=== PATIENT | male | born 1960 | race Caucasian/White ===

== ENCOUNTER 2017-04-18 10:02 | Inpatient (IN) ==
[2017-04-18] MEDS ORDERED: PIPERACILLIN SODIUM/TAZOBACTAM 3.375 GM in DEXTROSE 5% IN WATER 50 ML IV ONE (10:50)
[2017-04-18 10:57] LABS: Mean Cell Volume 86.9 fL (80.0-100.0); Mean Corpuscular HGB Conc 33.4 g/dL (31.0-36.0); Platelet Count 220 K/mcL (140-440); RBC 3.06 M/mcL (4.50-5.90); Red Cell Distribution Width 15.1 % (11.5-14.5)
[2017-04-18] MEDS ORDERED: ONDANSETRON 4 MG/2 ML VIAL IV ONE (11:08)
[2017-04-18 11:14] LABS: ALT/SGPT 50 U/l (0-40); Albumin 3.2 gm/dL (3.2-5.2); Albumin/Globulin Ratio 0.8 (1.0-2.3); Alkaline Phosphatase 91 U/L (39-117); Blood Urea Nitrogen 60 mg/dl (6-20)
[2017-04-18] MEDS ORDERED: HYDROmorphone 2 MG/ML SYRINGE IV SCH (11:15)
[2017-04-18 11:29] LABS: Anisocytosis 1+ (NONE SEEN); Band Neutrophils % 12 % (0-10); Lymphocytes % 5 % (15-49); Monocytes % (Manual) 6 % (1-12); Platelet Estimate NORMAL (NORMAL); RBC Morphology ABNORM (NORMAL); Segmented Neutrophils % 77 % (38-78)
[2017-04-18] MEDS ORDERED: VANCOMYCIN PER PHARMACY IV ONE (11:30)
[2017-04-18] MEDS ORDERED: VANCOMYCIN 1,500 MG in 0.9 % SODIUM CHLORIDE 500 ML IV ONE (12:00)
--- NOTE | 2017-04-18 12:59 | Emergency Department Note ---
General Adult HPI - General Chief complaint: Wound/Laceration Stated complaint: Right foot wound and redness Time Seen by Provider: 04/18/17 10:38 Source: patient Mode of arrival: ambulatory Limitations: no limitations - History of Present Illness HPI Narrative: 79-year-old male presents with fever, chills, redness and swelling to the right foot. Has had a partial amputation. States he had surgery on it about a month ago. Is unclear where he had the surgery done. He has been seen wound care. States Dr. lechuga put a couple stitches in it a few days ago. States the last 48 hours he is noticed it is red and more swollen and much more painful than usual. Much worse today and he did not want to wait so he came in here. He has been having chills at home but did not take his temperature at home, is febrile with a temp of 102 on arrival. No nausea, vomiting, or diarrhea. States he just not has not been feeling well in general the last week but cannot describe it. No chest pain or shortness of breath. States the only symptom that he can really pinpoint is that he does get dizzy at times. No dizziness currently. He believes this is all related to his foot. States he had an appointment to get a wound VAC on it later this afternoon but did not feel like he should wait as it was getting worse. Dr. khai ward is aware the patient is here and we are to call him when needed. Patient denies being on any antibiotic therapy currently. Associated symptoms: Reports: diaphoresis, fever/chills, malaise. Denies: confusion, chest pain, cough, headaches, loss of appetite, nausea/vomiting, shortness of breath, syncope, weakness Treatments Prior to Arrival: none - Related Data Home Medications Medication Instructions Recorded Confirmed glipizide 10 mg tablet 10 mg PO BID tab 02/11/15 04/18/17 rivaroxaban 15 mg tablet 15 mg PO .QD 21 Days 03/27/15 04/18/17 insulin detemir 100 unit/mL (3 mL) 80 unit SUB-Q BID ml 01/15/16 04/18/17 subcutaneous pen levothyroxine 150 mcg capsule 300 mcg PO ONCE 05/27/16 04/18/17 blood sugar diagnostic strips See Dose Instructions .ROUTE 01/02/17 04/07/17 .MEDSUPPLY insulin aspart 100 unit/mL 15 unit SUB-Q TID ml 01/02/17 04/18/17 subcutaneous pen lancets 28 gauge See Dose Instructions .ROUTE 01/02/17 04/07/17 .MEDSUPPLY pen needle, diabetic 31 gauge x See Dose Instructions .ROUTE 01/02/17 04/07/1711/03" .MEDSUPPLY ergocalciferol (vitamin D2) 50,000 50,000 unit PO QWEEK cap 03/24/17 04/18/17 unit capsule hydralazine 25 mg tablet 25 mg PO BIDP PRN tab 03/24/17 04/18/17 Allopurinol [Zyloprim] 200 mg PO QDAY 04/18/17 04/18/17 Previous Rx's Medication Instructions Recorded amlodipine 10 mg tablet 10 mg PO QDAY #90 tab 05/27/16 calcium acetate 667 mg capsule 667 mg PO TID 90 Days 05/27/16 losartan 100 mg tablet 100 mg PO QDAY #90 tab 05/27/16 torsemide 20 mg tablet 40 mg PO BID 90 Days 05/27/16 atorvastatin 40 mg tablet 40 mg PO QDAY 90 Days 02/23/17 prednisone 10 mg tablet 10 mg PO QDAY #30 tab 03/24/17 metolazone 2.5 mg tablet 2.5 mg PO QOD PRN #20 tab NS 04/10/17 Allergies Allergy/AdvReac Type Severity Reaction Status Date / Time Beta-Blockers AdvReac Hypotension Verified 04/18/17 10:06 (Beta-Adrenergic Bloc Review of Systems All systems ED: reviewed and negative except as stated. 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) Cough (Chronic) Vision problems (Chronic) Hand pain (Chronic) Thoracic back pain (Chronic) Spinal stenosis of thoracic region (Chronic) Cervical radiculopathy (Chronic) Spinal stenosis in cervical region (Chronic) Knee joint pain (Chronic) Elbow joint pain (Chronic) Atrial fibrillation (Chronic) Essential hypertension (Chronic) Anemia (Chronic) Vitamin D deficiency (Chronic) Diabetic foot ulcer (Chronic) 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) Diabetes mellitus (Chronic) Hypothyroidism (Chronic) Musculoskeletal pain (Chronic) Chronic kidney disease, stage IV (severe) (Chronic) Elevated erythrocyte sedimentation rate (Chronic) Hyperparathyroidism due to renal insufficiency (Chronic) Proteinuria (Chronic) Secondary hyperparathyroidism of renal origin (Chronic) Chronic kidney disease, stage IV (severe) (Chronic) Hyperuricemia (Chronic) Ulcer of foot (Acute) Secondary hyperparathyroidism (Chronic 09/15/13) Acidosis, renal tubular (Acute 08/21/13) Lumbar sprain (Acute) Hyperthyroidism (Acute) Hypertensive renal disease (Chronic 08/21/13) Hypertension (Acute) Creatinine elevation (Acute) Edema (Chronic 09/15/13) Type 2 diabetes mellitus, uncontrolled (Acute 08/21/13) Type 2 diabetes mellitus (Chronic) Stage III chronic kidney disease (Chronic 09/15/13) Atrial flutter (Acute) Past Surgical History (Last Reviewed 03/24/17 @ 08:53 by Latisha De León RN) History of discectomy (Acute) History of arthroscopy of left shoulder (Chronic 04/16/15) History of lumbar discectomy (Chronic ~1986) Medical history: Reports: other (Amputation to the right foot. He also sees wound care for wound and wound infection to the right foot. ) - Social History smoking status: Never smoker Alcohol use: Reports: None Drug use: Reports: none Physical Exam - General Limitations: no limitations General appearance: alert, in no apparent distress - Head Head exam: atraumatic, normocephalic, normal inspection - Eye Eye exam: Present: normal appearance. Absent: conjunctival injection - ENT ENT exam: normal exam, normal oropharynx, mucous membranes moist, TM's normal bilaterally, normal external ear exam - Chest Chest inspection: Present: normal inspection, symmetric chest wall rise - Respiratory Respiratory exam: Present: normal lung sounds bilaterally, other (Mild tachypnea with a rate of 24 on exam. Lung sounds are clear throughout.). Absent: respiratory distress, wheezes, accessory muscle use - Cardiovascular Cardiovascular exam: Present: regular rate, normal heart sounds - Abdominal Exam Abdominal exam: Present: soft, normal bowel sounds, other (Obesity). Absent: distention, tenderness - Extremities Exam Extremities exam: Present: other (The right foot has been previously partially amputated. The distal tip of this, 10 cm is red and warm to touch. There is some purulent drainage. Culture was obtained, sent, and is pending. Is also very tender to touch. Sensation is intact. Cap refill is immediate. There is sutures that are intact. It is not gaping.) - Neurological Exam Neurological exam: Present: alert, oriented X3. Absent: motor sensory deficit - Psychiatric Psychiatric exam: Present: normal affect, normal mood - Skin Skin exam: Present: warm, dry. Absent: erythema (Please see extremity assessment) Course Course Narrative: Patient does have an elevated white blood cell count as well as mildly elevated lactic acid. Please see lab results. Dr. khai ward consulted and is here to see patient. Dr. khai ward agrees to assume care and will consult with hospitalist Dr. Morrell. Vital Signs Temperature 102.1 F H 04/18/17 10:03 Pulse Rate 89 04/18/17 10:03 Respiratory Rate 18 04/18/17 10:03 Blood Pressure 158/79 04/18/17 10:03 Pulse Oximetry (%) 100 04/18/17 10:03 Temperature 102.1 F H 04/18/17 12:55 Pulse Rate 82 04/18/17 12:47 Respiratory Rate 21 04/18/17 12:47 Blood Pressure 135/55 04/18/17 12:47 Pulse Oximetry (%) 91 04/18/17 12:47 Medical Decision Making - Lab Data Result diagrams: 04/18/17 10:19 04/18/17 10:19 Lab Results 04/18/17 04/18/17 04/18/17 Range/Units 10:19 10:19 10:19 WBC 12.9 H (4.5-11.0) K/mcL RBC 3.06 L (4.50-5.90) M/mcL Hgb 8.9 L (13.5-16.5) g/dL Hct 26.6 L (41.0-55.0) % MCV 86.9 (80.0-100.0) fL MCH 29.0 (26.0-34.0) pg MCHC 33.4 (31.0-36.0) g/dL RDW 15.1 H (11.5-14.5) % Plt Count 220 (140-440) K/mcL MPV 8.7 (7.4-10.4) fL Total Counted 100 Seg Neutrophils % 77 (38-78) % Band Neutrophils % 12 H (0-10) % Lymphocytes % 5 L (15-49) % Monocytes % (Manual) 6 (1-12) % Platelet Estimate Normal (NORMAL) RBC Morphology Abnorm A (NORMAL) Anisocytosis 1+ A (NONE SEEN) VBG Lactic Acid 2.3 H (0.5-2.2) mmol/L Sodium 129 L (133-145) mmol/L Potassium 4.0 (3.3-5.1) mmol/L Chloride 87 L (96-108) mmol/L Carbon Dioxide 22 (22-30) mmol/L Anion Gap 20.0 H (8-16) BUN 60 H (6-20) mg/dl Creatinine 4.0 H (0.7-1.2) mg/dl GFR Calculation 15 Glucose 277 H (70-105) mg/dL Calcium 8.5 L (8.6-10.4) mg/dl Total Bilirubin 0.3 (0.0-1.0) mg/dL AST 58 H (0-37) U/l ALT 50 H (0-40) U/l Alkaline Phosphatase 91 (39-117) U/L Total Protein 7.0 (5.9-8.4) gm/dL Albumin 3.2 (3.2-5.2) gm/dL Globulin 3.8 H (2.2-3.7) gm/dL Albumin/Globulin Ratio 0.8 L (1.0-2.3) Disposition Pt seen by [facility] only: Yes Clinical Impression: Foot infection Disposition: Xfer As Inpt ([facility]) Condition: Fair Referrals: Mariama Bedolla DO [Primary Care Provider] - Dickson Cameron MD [Physician] -
[2017-04-18] MEDS ORDERED: ACETAMINOPHEN 325 MG TABLET PO ONE ×2 (13:15→13:23)
--- NOTE | 2017-04-18 13:43 | Internal Med History&Physical ---
Medical - H&P: [facility] Patient information: Note initiated : 04/18/17 at 1:39 pm Service Date, if different from initiated Date: [] Patient: Bart Pagan a 57 y/o M admitted on for Right foot wound and redness. Chief Complaint: [] Chief complaint: Right foot mputation stump pain fever History of present illness: Mr. Pagan is a 57 year old M who underwentright foot metatarsal amputation on March 07. Patient has been recovering well and has been following up with wound care. On Monday patient saw on care physician and underwent treatment along with 2 stitches. Over the weekend patient has noted increasing swelling and pain discharge. By Monday patient started experiencing shaking chills and drenching sweats long with excessive exhaustion. Today at work patient was unable to bear weight due to increasing pain and swelling along with associated fever. He notices bandage soaked in bloody discharge. he is afebrile 102. e was subsequently directed by Dr. Cameron's officeto ER. initial workup was significant for elevated white count along with fever and sepsis. ospitalist service was consulted after case was discussed with Dr. Maresor admission initiation of antibiotics and likely initiation of hyperbaric treatments. at the time of examination patient is alert oriented. He denies any active distress except for amputation stump pain and swelling. he endorses to fevers. Denies diarrhea dysuria headache photophobia skin rash or joint pain or weight loss. 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) Cough (Chronic) Vision problems (Chronic) Hand pain (Chronic) Thoracic back pain (Chronic) Spinal stenosis of thoracic region (Chronic) Cervical radiculopathy (Chronic) Spinal stenosis in cervical region (Chronic) Knee joint pain (Chronic) Elbow joint pain (Chronic) Atrial fibrillation (Chronic) Essential hypertension (Chronic) Anemia (Chronic) Vitamin D deficiency (Chronic) Diabetic foot ulcer (Chronic) 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) Diabetes mellitus (Chronic) Hypothyroidism (Chronic) Musculoskeletal pain (Chronic) Chronic kidney disease, stage IV (severe) (Chronic) Elevated erythrocyte sedimentation rate (Chronic) Hyperparathyroidism due to renal insufficiency (Chronic) Proteinuria (Chronic) Secondary hyperparathyroidism of renal origin (Chronic) Chronic kidney disease, stage IV (severe) (Chronic) Hyperuricemia (Chronic) Ulcer of foot (Acute) Secondary hyperparathyroidism (Chronic 09/15/13) Acidosis, renal tubular (Acute 08/21/13) Lumbar sprain (Acute) Hyperthyroidism (Acute) Hypertensive renal disease (Chronic 08/21/13) Hypertension (Acute) Creatinine elevation (Acute) Edema (Chronic 09/15/13) Type 2 diabetes mellitus, uncontrolled (Acute 08/21/13) Type 2 diabetes mellitus (Chronic) Stage III chronic kidney disease (Chronic 09/15/13) Atrial flutter (Acute) Surgical history: History of discectomy (Acute) History of arthroscopy of left shoulder (Chronic 04/16/15) History of lumbar discectomy (Chronic ~1986) Family history: reviewed and not pertinent Pertinent family history: dopted 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 Has a cousin Jeffrey who lives locally Smoking status: Former smoker (uit in 2004) Drug use: none Alcohol use: none Medical - H&P: Meds Home Medications Medication Instructions Recorded Confirmed Type glipizide 10 mg tablet 10 mg PO BID tab 02/11/15 04/18/17 History rivaroxaban 15 mg tablet 15 mg PO .QD 21 Days 03/27/15 04/18/17 History insulin detemir 100 unit/mL (3 mL) 80 unit SUB-Q BID ml 01/15/16 04/18/17 History subcutaneous pen amlodipine 10 mg tablet 10 mg PO QDAY #90 tab 05/27/16 04/18/17 Rx calcium acetate 667 mg capsule 667 mg PO TID 90 Days 05/27/16 04/18/17 Rx levothyroxine 150 mcg capsule 300 mcg PO ONCE 05/27/16 04/18/17 History losartan 100 mg tablet 100 mg PO QDAY #90 tab 05/27/16 04/18/17 Rx torsemide 20 mg tablet 40 mg PO BID 90 Days 05/27/16 04/18/17 Rx blood sugar diagnostic strips See Dose Instructions .ROUTE 01/02/17 04/07/17 History .MEDSUPPLY insulin aspart 100 unit/mL 15 unit SUB-Q TID ml 01/02/17 04/18/17 History subcutaneous pen lancets 28 gauge See Dose Instructions .ROUTE 01/02/17 04/07/17 History .MEDSUPPLY pen needle, diabetic 31 gauge x See Dose Instructions .ROUTE 01/02/17 04/07/17 History 3" .MEDSUPPLY atorvastatin 40 mg tablet 40 mg PO QDAY 90 Days 02/23/17 04/18/17 Rx ergocalciferol (vitamin D2) 50,000 50,000 unit PO QWEEK cap 03/24/17 04/18/17 History unit capsule hydralazine 25 mg tablet 25 mg PO BIDP PRN tab 03/24/17 04/18/17 History prednisone 10 mg tablet 10 mg PO QDAY #30 tab 03/24/17 04/18/17 Rx metolazone 2.5 mg tablet 2.5 mg PO QOD PRN #20 tab NS 04/10/17 04/18/17 Rx Allopurinol [Zyloprim] 200 mg PO QDAY 04/18/17 04/18/17 History Allergies Allergy/AdvReac Type Severity Reaction Status Date / Time Beta-Blockers AdvReac Hypotension Verified 04/18/17 10:06 (Beta-Adrenergic Bloc Medical - H&P: Exam - Constitutional Vitals: Temp Pulse Resp BP Pulse Ox 102.2 F H 82 22 134/59 91 04/18/17 13:21 04/18/17 12:47 04/18/17 13:02 04/18/17 13:02 04/18/17 12:47 General appearance: moderate distress, morbidly obese Exam: alert oriented pupils symmetric Oral cavity dry no eardischarge head normocephalic Nose lymphadenopathy or JVD s1 and S2 regular rhythm ESM grade 1 chest clear to auscultation abdomen soft right lower extremity examination-amputation stump significantly swollen and oozing purulent discharge from the lateral surface. klarissa to touch Left lower extremity examination no cyanosis clubbing skin no suspicious lesion Psych alert cooperative neuro normal functions on a limited due to exam Medical - H&P: Reslt - Labs CBC & Chem 7: 04/18/17 10:19 04/18/17 10:19 Labs: Short CBC 04/18/17 Range/Units 10:19 WBC 12.9 H (4.5-11.0) K/mcL Hgb 8.9 L (13.5-16.5) g/dL Hct 26.6 L (41.0-55.0) % Plt Count 220 (140-440) K/mcL BMP 04/18/17 10:19 Sodium 129 L Potassium 4.0 Chloride 87 L Carbon Dioxide 22 BUN 60 H Creatinine 4.0 H Glucose 277 H Calcium 8.5 L Liver Function 04/18/17 Range/Units 10:19 Total Bilirubin 0.3 (0.0-1.0) mg/dL AST 58 H (0-37) U/l ALT 50 H (0-40) U/l Alkaline Phosphatase 91 (39-117) U/L Albumin 3.2 (3.2-5.2) gm/dL Medical - H&P: A/P (1) Severe sepsis Current visit: Yes Status: Acute (2) Necrotizing cellulitis Current visit: Yes Status: Acute * Necrotizing cellulitis right foot amputation site-nitiate broad antibiotic coverage. Wound care consulted. await wound cultures. dmitted as inpatient * Severe sepsis secondary to above-broad antibiotic coverage. Admitted to telemetry for close hemodynamic monitoring. white count 8.9 * Stage IV kidney disease-nephrology consulted. Creatinine 4. Baseline 3 * anticoagulation on rivaroxaban. * History of gout continue allopurinol * hypertension hold amlodipine/valsartan in light of severe sepsis until hemodynamics stable * dM type II continue prandial insulin * hypothyroidism thyroxine * Full CODE STATUS Plan * Broad antibiotic coverage including Rocephin/vancomycin and clindamycin(for toxin suppression) * wound care consult * nephrology consult * telemetry admitted * pre-existing medical condition management as above except antihypertensives which will be held until sepsis clinically improves * Anticipate minimumOvernight stay
[2017-04-18] MEDS ORDERED: guaiFENesin/CODEINE 10 ML UDC PO PRN (14:15)
[2017-04-18] MEDS ORDERED: DEXTROSE 50% 50 ML VIAL IV PRN (14:15)
[2017-04-18] MEDS ORDERED: VANCOMYCIN PER PHARMACY IV SCH (14:15)
[2017-04-18] MEDS ORDERED: DEXTROSE 31 GM ORAL.SUSP PO PRN (14:15)
[2017-04-18] MEDS ORDERED: 0.9 % SODIUM CHLORIDE 1,000 ML IV SCH (14:15)
[2017-04-18] MEDS ORDERED: ONDANSETRON 4 MG/2 ML VIAL IV PRN (14:15)
[2017-04-18] MEDS ORDERED: hydrALAZINE 25 MG TABLET PO PRN (14:15)
[2017-04-18] MEDS ORDERED: POTASSIUM CHLORIDE 20 MEQ PACKET PO PRN (14:15)
[2017-04-18] MEDS ORDERED: MAGNESIUM SULFATE 2 GM/50 ML BAG IV PRN (14:15)
[2017-04-18] MEDS ORDERED: CLINDAMYCIN 600 MG in DEXTROSE 5% IN WATER 50 ML IV SCH (14:30)
[2017-04-18] MEDS ORDERED: cefTRIAXone 2 GM in DEXTROSE 5% IN WATER 50 ML IV SCH (15:00)
[2017-04-18] MEDS: GENTAMICIN SULFATE 40 MG, CLINDAMYCIN 300 MG, BACITRACIN 25,000 UNIT in SODIUM CHLORIDE... IRR SCH ×2 (16:00→20:44)
[2017-04-18] MEDS: 0.9 % SODIUM CHLORIDE 10 ML SYRINGE IV SCH ×2 (16:31→23:11)
[2017-04-18] MEDS: INSULIN LISPRO 1 UNIT/0.01 ML UNIT SQ SCH ×2 (16:38→20:55)
[2017-04-18] MEDS: ACETAMINOPHEN 1,000 MG/100 ML BOTTLE IV PRN (16:47)
[2017-04-18] MEDS ORDERED: LORazepam 1 MG TABLET PO PRN (18:36)
--- NOTE | 2017-04-18 18:52 | General Surgery Consult Note ---
History of Present Illness Patient information: Note initiated : 04/18/17 at 6:41 pm Service Date, if different from initiated Date: [] Patient: Bart Pagan 57 y/o M admitted on 04/18/17 for Debridement of Wound Right Foot. Chief Complaint: [] Consult date: 04/18/17 (Wound Care / Management) Reason for consult: other Requesting physician: Johnny Schreiber (Post surgery SIRS Sepsis) History of present illness: Patient was admitted from ER with sepsis, CSSSI earlier this morning. He is status post transmetatarsal amputation of right for over one month ago. Was being followed in wound care issues and for delayed wound healing. He was last seen in wound center over four days ago. Subsequently developed constitutional symptoms and inability to bear weight on right foot. Developed chills and started to notice drainage from wound at the lateral flap edge approximated earlier at wound clinic. He was instructed to go to ER for evaluation and admission for further management. Patient denies any acute cardiac, respiratory, GI pr neurological symptoms. He has CRF and is under care of linen room supervisor Dr. Garcia. Lab work in ER revealed leukocytosis, anemia, creatinine of 4, marginal elevation of lactic acid and other lab abnormalities. Wound evaluation revealed erythematous flap edges and drainage of serous purulent drainage. Medications and Allergies Home Medications Medication Instructions Recorded Confirmed Type glipizide 10 mg tablet 10 mg PO BID tab 02/11/15 04/18/17 History rivaroxaban 15 mg tablet 15 mg PO DAILY 21 Days 03/27/15 04/18/17 History insulin detemir 100 unit/mL (3 mL) 80 unit SUB-Q BID ml 01/15/16 04/18/17 History subcutaneous pen amlodipine 10 mg tablet 10 mg PO QDAY #90 tab 05/27/16 04/18/17 Rx calcium acetate 667 mg capsule 667 mg PO TID 90 Days 05/27/16 04/18/17 Rx levothyroxine 150 mcg capsule 300 mcg PO ACB 05/27/16 04/18/17 History losartan 100 mg tablet 100 mg PO QDAY #90 tab 05/27/16 04/18/17 Rx torsemide 20 mg tablet 40 mg PO BID 90 Days 05/27/16 04/18/17 Rx insulin aspart 100 unit/mL 15 unit SUB-Q QPMAC ml 01/02/17 04/18/17 History subcutaneous pen atorvastatin 40 mg tablet 40 mg PO QDAY 90 Days 02/23/17 04/18/17 Rx ergocalciferol (vitamin D2) 50,000 50,000 unit PO QWEEK cap 03/24/17 04/18/17 History unit capsule hydralazine 25 mg tablet 25 mg PO BID tab 03/24/17 04/18/17 History prednisone 10 mg tablet 10 mg PO QDAY #30 tab 03/24/17 04/18/17 Rx metolazone 2.5 mg tablet 2.5 mg PO QOD PRN #20 tab NS 04/10/17 04/18/17 Rx Allopurinol [Zyloprim] 200 mg PO QDAY 04/18/17 04/18/17 History HYDROcodone/ACETAMINOPHEN 1 - 2 tab PO Q6HP PRN 04/18/17 04/18/17 History [Hydrocodon-Acetaminophn 10-325] Allergies Allergy/AdvReac Type Severity Reaction Status Date / Time Beta-Blockers AdvReac Hypotension Verified 04/18/17 10:06 (Beta-Adrenergic Bloc Exam Temp Pulse Resp BP Pulse Ox 101.6 F H 73 20 139/65 95 04/18/17 16:47 04/18/17 13:50 04/18/17 16:28 04/18/17 16:28 04/18/17 16:28 - General physical appearance well developed, well nourished, no distress - Eyes PERRL, normal ocular movement - ENT normal pinna, normal nares, normal mucosa, no hearing loss, no congestion - Head Head exam IM: Present: atraumatic, normal inspection, normocephalic - Neck no masses, no bruits, trachea midline, no venous distension - Cardiovascular Cardiovascular exam IM: Present: normal rate and rhythm - Respiratory normal expansion, clear to auscultation - Abdomen Abdomen: Present: soft, non tender, bowel sounds - Integumentary Present: other (ERYTHEMA right foot with drainage from lateral edge of wound. ) - Neurologic Present: normal coordination, other (Diabetes neuropathy feet. NO FOCAL NEUROLOGICAL DEFICITS. ) - Musculoskeletal Present: other (Right foot trans metatarsal amputaion ) - Psychiatric Present: oriented to time, oriented to person, oriented to place, speech is normal, memory intact, other (Fully aware of current situation and agrees with current plan of treatment. ) Results - Labs 04/19/17 04:34 04/19/17 04:34 All other labs normal. Assessment and Plan (1) Sepsis affecting skin Local wound care, IV antibiotics, For surgical debridement in OR after pre op HBOT for necrotizing skin infection, Status: Acute Priority: High (2) Foot infection X Ray, wound cultures, OR debridement, pulse lavage irrigation with antibiotics saline solution, and / or packing versus wound VAC placement. Status: Acute Priority: High (3) Severe sepsis Pre operative medical management of co morbid medical problems and work up followed by HBOT, OR debridement and on going wound care. Status: Acute Priority: High
[2017-04-18] MEDS ORDERED: PIPERACILLIN SODIUM/TAZOBACTAM 2.25 GM VIAL IV ONE (20:26)
[2017-04-18] MEDS: PIPERACILLIN SODIUM/TAZOBACTAM 2.25 GM in DEXTROSE 5% IN WATER 50 ML IV SCH (20:36)
[2017-04-18] MEDS: DOCUSATE SODIUM 100 MG CAPSULE PO SCH (20:43)
[2017-04-18] MEDS: SENNOSIDES/DOCUSATE SODIUM 1 TAB TABLET PO SCH (20:43)
[2017-04-18] MEDS ORDERED: TORSEMIDE 10 MG TABLET PO SCH (21:00)
[2017-04-18] MEDS: oxyCODONE HCL 5 MG TABLET PO PRN (21:01)
[2017-04-18] MEDS: ACETAMINOPHEN 325 MG TABLET PO PRN (22:58)
[2017-04-19] MEDS ORDERED: PIPERACILLIN SODIUM/TAZOBACTAM 2.25 GM VIAL IV ONE ×2 (00:26→05:29)
[2017-04-19] MEDS: PIPERACILLIN SODIUM/TAZOBACTAM 2.25 GM in DEXTROSE 5% IN WATER 50 ML IV SCH ×4 (00:32→22:06)
[2017-04-19] MEDS: ACETAMINOPHEN 1,000 MG/100 ML BOTTLE IV PRN ×3 (01:15→17:45)
[2017-04-19] MEDS: 0.9 % SODIUM CHLORIDE 10 ML SYRINGE IV SCH ×3 (05:26→22:06)
[2017-04-19 05:59] LABS: Mean Cell Volume 86.6 fL (80.0-100.0); Mean Corpuscular HGB Conc 33.7 g/dL (31.0-36.0); Mean Corpuscular Hemoglobin 29.2 pg (26.0-34.0); Platelet Count 195 K/mcL (140-440); RBC 2.73 M/mcL (4.50-5.90); Red Cell Distribution Width 15.6 % (11.5-14.5)
[2017-04-19 06:18] LABS: Estimated Average Glucose(eAG) 229 mg/dL; Hemoglobin A1C 9.6 % HGB (4.0-6.0)
[2017-04-19 06:20] LABS: ALT/SGPT 39 U/l (0-40); Albumin/Globulin Ratio 1.1 (1.0-2.3); Alkaline Phosphatase 79 U/L (39-117); Bilirubin,Direct < 0.2 mg/dL (0.0-0.3); Blood Urea Nitrogen 62 mg/dl (6-20); Gamma Glutamyl Transpeptidase 75 U/L (8-61); Magnesium 1.7 mg/dL (1.6-2.5); Prealbumin 14.3 mg/dl (20-40)
[2017-04-19 06:51] LABS: Band Neutrophils % 6 % (0-10); Eosinophils % (Manual) 1 % (0-7); Lymphocytes % 8 % (15-49); Monocytes % (Manual) 7 % (1-12); Platelet Estimate NORMAL (NORMAL); RBC Morphology NORMAL (NORMAL); Segmented Neutrophils % 78 % (38-78)
--- NOTE | 2017-04-19 07:36 | XRay Report ---
CLINICAL INFORMATION: Sepsis preop COMPARISON: 02/15/2013 FINDINGS: Since prior films, a transmetatarsal amputation of the performed. There is mild cortical and trabecular irregularity in the first metatarsal base which could indicate infection. Marked overlying soft tissue swelling is noted. No other osseous abnormalities. Residual joint spaces are normal. IMPRESSION: Marked soft tissue swelling over the transmetatarsal amputation stump with irregularity in the first metatarsal base which could indicate osteomyelitis Interpreted and Authenticated by: Nakul Huynh 04/19/17
--- NOTE | 2017-04-19 07:37 | XRay Report ---
CLINICAL INFORMATION: Sepsis - pre-op COMPARISON: None. FINDINGS: Heart size, mediastinum and pulmonary vessels are normal. Lungs are clear. There are equivocal tiny bilateral pleural effusions IMPRESSION: Equivocal tiny bilateral pleural effusions Interpreted and Authenticated by: Nakul Huynh 04/19/17
--- NOTE | 2017-04-19 07:59 | General Surgery Progress Note ---
Subjective Patient reports: fever, other (Spiked fever up to 103 F overnight. Blood c/s GPC pairs and clusters. Necrotic drainage from wound .) Narrative: Note initiated : 04/19/17 at 7:56 am Service Date, if different from initiated Date: [] Patient: Bart Pagan 57 y/o M admitted on 04/18/17 for Debridement of Wound Right Foot. Chief Complaint: [] Objective Temp Pulse Resp BP Pulse Ox 99.9 F H 76 20 148/78 93 04/19/17 05:46 04/19/17 04:00 04/19/17 04:00 04/19/17 04:00 04/19/17 04:00 T mas 103. T now 99 F. NSR. Lungs CTA. O2 sats >90 % on RA. Labs Elevation of creatinine . Leukocytosis, Hyperglycemia Right foot warm. Dressing intact. - Additional Data Intake & Output - Last 24 hours: Intake & Output 04/17/17 04/18/17 04/19/17 04/20/17 05:59 05:59 05:59 05:59 Intake Total 1584 / 1967 Output Total 1050 / 1050 Balance 534 / 917 Weight 237 lb 8 oz - Labs 04/19/17 04:34 04/19/17 04:34 Diabetes panel 04/19/17 Range/Units 04:34 Sodium 132 L (133-145) mmol/L Potassium 4.0 (3.3-5.1) mmol/L Chloride 92 L (96-108) mmol/L Carbon Dioxide 21 L (22-30) mmol/L BUN 62 H (6-20) mg/dl Creatinine 4.5 H (0.7-1.2) mg/dl Glucose 123 H (70-105) mg/dL Hemoglobin A1c 9.6 H (4.0-6.0) % HGB Calcium 8.2 L (8.6-10.4) mg/dl AST 36 (0-37) U/l ALT 39 (0-40) U/l Alkaline Phosphatase 79 (39-117) U/L Total Protein 5.8 L (5.9-8.4) gm/dL Albumin 3.0 L (3.2-5.2) gm/dL Triglycerides 132 (<150) mg/dl Thyroid panel 04/19/17 Range/Units 04:34 TSH 0.18 L (0.27-5.01) uIU/ml Calcium panel 04/19/17 Range/Units 04:34 Calcium 8.2 L (8.6-10.4) mg/dl Phosphorus 4.6 H (2.7-4.5) mg/dL Albumin 3.0 L (3.2-5.2) gm/dL Pituitary panel 04/19/17 Range/Units 04:34 Sodium 132 L (133-145) mmol/L Potassium 4.0 (3.3-5.1) mmol/L Chloride 92 L (96-108) mmol/L Carbon Dioxide 21 L (22-30) mmol/L BUN 62 H (6-20) mg/dl Creatinine 4.5 H (0.7-1.2) mg/dl Glucose 123 H (70-105) mg/dL Calcium 8.2 L (8.6-10.4) mg/dl TSH 0.18 L (0.27-5.01) uIU/ml Adrenal panel 04/19/17 Range/Units 04:34 Sodium 132 L (133-145) mmol/L Potassium 4.0 (3.3-5.1) mmol/L Chloride 92 L (96-108) mmol/L Carbon Dioxide 21 L (22-30) mmol/L BUN 62 H (6-20) mg/dl Creatinine 4.5 H (0.7-1.2) mg/dl Glucose 123 H (70-105) mg/dL Calcium 8.2 L (8.6-10.4) mg/dl Total Bilirubin 0.3 (0.0-1.0) mg/dL AST 36 (0-37) U/l ALT 39 (0-40) U/l Alkaline Phosphatase 79 (39-117) U/L Total Protein 5.8 L (5.9-8.4) gm/dL Albumin 3.0 L (3.2-5.2) gm/dL Assessment and Plan (1) Sepsis affecting skin Problem details: NECROTIZING skin and soft tissue infection. SEPSIS Uncontrolled diabetes, Anemia, CRF PLAN: HBOT Now later OR debridement / lavage and deep tissue biopsies and cultures. Status: Acute Current Visit: Yes (2) Foot infection Status: Acute Current Visit: Yes (3) Severe sepsis Status: Acute Current Visit: Yes - Time Spent With Patient Total time spent is greater than 50% in coordination of care (as documented) at patient's floor/unit and/or counseling patient:
[2017-04-19] MEDS ORDERED: CLINDAMYCIN 600 MG in DEXTROSE 5% IN WATER 50 ML IV SCH (10:00)
[2017-04-19] MEDS ORDERED: GENTAMICIN SULFATE 800 MG/20 ML VIAL IR ONE (11:04)
[2017-04-19] MEDS ORDERED: BACITRACIN 50,000 UNIT VIAL IR ONE (11:04)
[2017-04-19] MEDS ORDERED: CLINDAMYCIN 600 MG/4 ML VIAL IR ONE (11:04)
[2017-04-19] MEDS ORDERED: ACETAMINOPHEN 1,000 MG/100 ML BOTTLE IV ONE (11:05)
[2017-04-19] MEDS ORDERED: ONDANSETRON 4 MG/2 ML VIAL IV ONE (11:05)
[2017-04-19] MEDS ORDERED: LIDOCAINE HCL/PF 100 MG/5 ML SYRINGE IV ONE (11:05)
[2017-04-19] MEDS ORDERED: MIDAZOLAM 5 MG/5 ML VIAL IV ONE (11:05)
[2017-04-19] MEDS ORDERED: ETOMIDATE 20 MG/10 ML VIAL IV ONE (11:05)
[2017-04-19] MEDS ORDERED: GLYCOPYRROLATE 0.2 MG/ML VIAL IV ONE (11:05)
[2017-04-19] MEDS ORDERED: KETAMINE 100 MG/ML ML IV ONE (11:05)
[2017-04-19] MEDS: ALLOPURINOL 100 MG TABLET PO SCH ×2 (11:06→15:13)
[2017-04-19] MEDS: MULTIVIT,THER IRON,CA,FA & MIN 1 TABLET PO SCH ×2 (11:07→15:14)
[2017-04-19] MEDS ORDERED: MEPERIDINE 25 MG/ML SYRINGE IV PRN (11:27)
[2017-04-19] MEDS ORDERED: fentaNYL 100 MCG/2 ML VIAL IV PRN (11:27)
[2017-04-19] MEDS ORDERED: ONDANSETRON 4 MG/2 ML VIAL IV PRN (11:27)
[2017-04-19] MEDS ORDERED: METHOCARBAMOL 1,000 MG/10 ML VIAL IV PRN (11:27)
[2017-04-19] MEDS ORDERED: IPRATROPIUM/ALBUTEROL 3 ML AMPUL.NEB NEB PRN (11:27)
[2017-04-19] MEDS ORDERED: HYDROmorphone 2 MG/ML SYRINGE IV PRN (11:27)
[2017-04-19] MEDS ORDERED: LACTATED RINGERS 1,000 ML IV SCH (11:30)
[2017-04-19] MEDS: INSULIN LISPRO 1 UNIT/0.01 ML UNIT SQ SCH ×3 (11:42→20:27)
[2017-04-19] MEDS: LEVOTHYROXINE 150 MCG TABLET PO SCH (11:43)
[2017-04-19] MEDS: RIVAROXABAN 15 MG TABLET PO SCH (11:44)
[2017-04-19] MEDS: predniSONE 10 MG TABLET PO SCH (11:44)
[2017-04-19] MEDS: DOCUSATE SODIUM 100 MG CAPSULE PO SCH ×2 (11:44→20:26)
[2017-04-19] MEDS: ATORVASTATIN 20 MG TABLET PO SCH (11:58)
--- NOTE | 2017-04-19 12:13 | Brief Operative Note ---
Date of procedure: 04/19/17 Pre-op diagnosis: SEPSIS. Infected Right foot TMA amputation site Lateral Post-op diagnosis: same Procedure: Surgical debridement and deep tissue biopsies and cultures, OPEN packing Final wound dimensions: 5 x 3.5 x 4 CM Grafts/Implants: No Anesthesia: GLMA Findings: Multiloculated pockets of soft tissue skin, fat and abscess debris Complications: none Surgeon: Dickson Cameron Estimated blood loss (cc): 20 Specimens Removed/Pathology: other Condition: stable Disposition: floor (OPeration was well toelrated.)
[2017-04-19] MEDS: 0.9 % SODIUM CHLORIDE 1,000 ML IV SCH ×3 (12:20→23:59)
--- NOTE | 2017-04-19 13:02 | Operative Note ---
DATE OF OPERATION: 04/19/2017 PREOPERATIVE DIAGNOSES: Sepsis, infected right foot status post transmetatarsal amputation over one month ago. POSTOPERATIVE DIAGNOSES: Sepsis, infected right foot status post transmetatarsal amputation over one month ago. Infection along the lateral one-third of the scar extending from the front out to the superior aspect of the foot. PROCEDURE: 1. Excisional surgical debridement. Deep tissue biopsies. Cultures. 2. Pulse lavage irrigation with open packing. FINAL WOUND DIMENSIONS: 5 x 3.5 x 4 cm. ANESTHESIOLOGIST: Unique Welch MD. SURGEON: Dickson Cameron MD. PROCEDURE NOTE: After obtaining informed consent, patient was taken to the operating room, anesthetized uneventfully in supine position using laryngeal mask airway. Timeout was called. The right lower extremity was widely cleaned, prepped and draped in a standard fashion from the knee down to the amputation stump scar. Preoperative photograph was taken. The patient was placed in Trendelenburg position. We first proceeded to explore the wound with a hemostat. The necrotic skin edges were sharply trimmed. Underlying loculations were taken down with blunt finger dissection. This led to a gush of necrotic fat and liquified blood clots. Later the devitalized fat and muscle was excised with pickup and curved scissors. Pulse lavage irrigation was used to irrigate this cavity. Three liters of normal saline solution was mixed with 80 mg of gentamicin, 600 mg of clindamycin, and 50,000 units of bacitracin solution. All the devitalized tissue was washed and flushed away. Towards completion, the wound bed was pink and moist. We placed a large Xeroform gauze over this. This was reinforced with open 2-inch Kerlix roll soaked in Betadine solution. The Xeroform gauze was folded on itself, and this packing was held in place with AMD Kerlix gauze, AMD Kerlix roll, Coban and MOISES wrap. Estimated blood loss was under 20 mL. Count of swabs, instruments and needles was reported to be correct. He recovered from the procedure uneventfully. He was taken back to his room in telemetry division ICU. The procedure was well tolerated. VD:marleni Job ID: [id number] Doc ID: [id number] Dickson Cameron MD
[2017-04-19] MEDS: GENTAMICIN SULFATE 40 MG, CLINDAMYCIN 300 MG, BACITRACIN 25,000 UNIT in SODIUM CHLORIDE... IRR SCH ×2 (14:27→20:27)
--- NOTE | 2017-04-19 14:37 | Internal Med Progress Note ---
Medical - PN: Subj Patient information: Note initiated : 04/19/17 at 2:33 pm Service Date, if different from initiated Date: [] Patient: Bart Pagan a 57 y/o M admitted on 04/18/17 for Debridement of Wound Right Foot. Chief Complaint: [] Interval history: Mr. Pagan is a 57 year old M who underwentright foot metatarsal amputation on March 07. Patient has been recovering well and has been following up with wound care. On Monday patient saw on care physician and underwent treatment along with 2 stitches. Over the weekend patient has noted increasing swelling and pain discharge. By Monday patient started experiencing shaking chills and drenching sweats long with excessive exhaustion. Today at work patient was unable to bear weight due to increasing pain and swelling along with associated fever. He notices bandage soaked in bloody discharge. he is afebrile 102. e was subsequently directed by Dr. Cameron's officeto ER. initial workup was significant for elevated white count along with fever and sepsis. hospitalist service was consulted after case was discussed with Dr. Justin admission initiation of antibiotics and likely initiation of hyperbaric treatments. at the time of examination patient is alert oriented. He denies any active distress except for amputation stump pain and swelling. he endorses to fevers. Denies diarrhea dysuria headache photophobia skin rash or joint pain or weight loss. 04/19: Pt seen examined, febrile overnight, blood cx positive, on vancomycin, antibiotics changed from rocephin ./ clinda to zosyn. Patient on pn tylenol. HBOT rx done today and he is s/p wound debridement by Dr Mccauley. Plan to continue antibiotics for now. LIkely staph related infection, but given DM wound will cover from gram neg as well as anerobic infections. Patient otherwise is doing well, denies any acute complaints besdies pain in the leg and some mechanical back discomfort. his labs show worsening renal functino, nephrology following, IV fluid rate increased, and torsemide held. Pertinent ROS: Denies headache, dizziness Denies chest pain, palpitations Denies cough or shortness of breath Denies abdominal pain, nausea or vomiting. - Constitutional Vitals: Vital Signs Temp Pulse Resp BP Pulse Ox 101.5 F H 68 14 135/40 92 04/19/17 12:30 04/19/17 12:16 04/19/17 12:16 04/19/17 12:16 04/19/17 12:16 Period Temp Pulse Resp BP Sys/Mancini Pulse Ox Last 24 Hr 99.0 F-103.1 F 66-77 10-20 94-151/28-88 92-96 Intake and Output 04/19/17 04/19/17 04/19/17 05:59 13:59 21:59 Intake Total 950 / 950 950 / 950 265 / 265 Output Total 650 / 650 405 / 405 Balance 300 / 300 545 / 545 265 / 265 Intake & Output: Intake & Output 04/19/17 04/19/17 04/19/17 05:59 13:59 21:59 Intake Total 950 / 950 950 / 950 265 / 265 Output Total 650 / 650 405 / 405 Balance 300 / 300 545 / 545 265 / 265 Intake: IV 10 / 10 265 / 265 Sodium Chloride 0.9% 1, 265 / 265 000 ml @ 125 mls/hr IV . Q8H JUANA Rx#:[id number] Lactated Ringers 1,000 ml 10 / 10 @ 20 mls/hr IV .Q24H JUANA Rx#:[id number] Oral 800 / 800 240 / 240 IV - Manual Only 150 / 150 700 / 700 Output: Void Amount 650 / 650 400 / 400 Estimated Blood Loss 5 / 5 Other: Meal Breakfast Percent of Meal Consumed 75% Exam: Constitutional; Afebrile, cooperative, alert, not in distress. Eyes- No icterus, , No periorbital swelling Ears- Ext ear normal, hearing normal to conversation. Neck- Midline trachea, supple Respiratory system: Air Entry equal on both sides, No crackles or wheezing, no rhonchi. CVS- Rate rhythm regular, S1,S2 heard, no gallop, no rub. Abdomen- Soft nontender abdomen, no organomegaly, no tenderness, no guarding or rigidity, COFOUNDER- AOOx3, moving all extremities, no gross focal deficit noted. Medical - PN: Obj Da - Labs CBC & Chem 7: 04/19/17 04:34 04/19/17 04:34 Labs: Abnormal Lab Results 04/19/17 04/19/17 04:34 04:34 RBC 2.73 L Hgb 8.0 L Hct 23.7 L RDW 15.6 H Lymphocytes % 8 L Sodium 132 L Chloride 92 L Carbon Dioxide 21 L Anion Gap 19.0 H BUN 62 H Creatinine 4.5 H Glucose 123 H Hemoglobin A1c 9.6 H Uric Acid 9.0 H Calcium 8.2 L Phosphorus 4.6 H GGT 75 H Total Protein 5.8 L Albumin 3.0 L Prealbumin 14.3 L TSH 0.18 L Meds: Medications Acetaminophen (Tylenol) 650 mg PO Q4-6HP PRN PRN Reason: PAIN/FEVER > 101 Last Admin: 04/18/17 22:58 Dose: 650 mg Allopurinol (Zyloprim) 200 mg PO QDAY [facility] Last Admin: 04/19/17 11:06 Dose: Not Given Atorvastatin Calcium (Lipitor) 40 mg PO DAILY [facility] Last Admin: 04/19/17 11:58 Dose: Not Given Dextrose (Dextrose 50%) 0 ml IV UD PRN PRN Reason: Hypoglycemia Diagnostic Test (Pha) (Accu-Chek) 1 each FS ACHS [facility] Last Admin: 04/19/17 11:40 Dose: Not Given Docusate Sodium (Colace) 100 mg PO BID [facility] Last Admin: 04/19/17 11:44 Dose: Not Given Ferrous Sulfate (Ferrous Sulfate) 325 mg PO [facility] Glucose (Insta-Glucose) 15 gm PO PRN PRN PRN Reason: Hypoglycemia Guaifenesin/Codeine Phosphate (Robitussin Ac) 10 ml PO Q4HP PRN PRN Reason: Cough Hydralazine HCl (Apresoline) 25 mg PO BIDP PRN PRN Reason: Hypertension Gentamicin Sulfate 40 mg/Clindamycin Phosphate 300 mg/Bacitracin 25,000 unit/ Sodium Chloride 503 mls @ 0 mls/hr IRR BID [facility] PRN Reason: As Directed Last Admin: 04/19/17 14:27 Dose: Not Given Magnesium Sulfate (Magnesium Sulfate) 2 gm in 50 mls @ 50 mls/hr IV UD PRN PRN Reason: MG = or < 1.7 Acetaminophen (Ofirmev) 1,000 mg in 100 mls @ 200 mls/hr IV Q6HP PRN PRN Reason: PAIN/FEVER > 101 Last Admin: 04/19/17 01:15 Dose: 200 mls/hr Piperacillin Sod/Tazobactam (Sod 2.25 gm/ Dextrose) 50 mls @ 100 mls/hr IV Q8H [facility] Last Admin: 04/19/17 14:26 Dose: 100 mls/hr Sodium Chloride (Sodium Chloride 0.9%) 1,000 mls @ 125 mls/hr IV .Q8H [facility] Stop: 04/20/17 06:55 Last Admin: 04/19/17 14:27 Dose: 125 mls/hr Insulin Human Lispro (Humalog) 0 unit SQ ACHS [facility] PRN Reason: Protocol Last Admin: 04/19/17 11:42 Dose: Not Given Iron Carb/Multivit/Otter Tail/Folic Acid (Multivitamin W/Minerals) 1 tab PO DAILY [facility] Last Admin: 04/19/17 11:07 Dose: Not Given Levothyroxine [facility] ([facility]throid) [facility] Last Admin: 04/19/17 11:43 Dose: Not Given Lorazepam (Ativan) 1 mg PO DAILYP PRN PRN Reason: ANXIETY/SEDATION Ondansetron HCl (Zofran) 4 mg IV Q4-6HP PRN PRN Reason: Nausea And Vomiting Oxandrolone (Oxandrin) 5 mg PO BID [facility] Oxycodone HCl (Roxicodone) 5 mg PO Q4HP PRN PRN Reason: Pain Last Admin: 04/18/17 21:01 Dose: 5 mg Potassium Chloride (Klor-Con) 40 meq PO DAILYP PRN PRN Reason: K+ < 3.5 Prednisone (Prednisone) 10 mg PO [facility] Last Admin: 04/19/17 11:44 Dose: Not Given Rivaroxaban (Xarelto) 15 mg PO [facility] Last Admin: 04/19/17 11:44 Dose: Not Given Senna/Docusate Sodium (Senna Plus Tablet) 1 tab PO HS [facility] Last Admin: 04/18/17 20:43 Dose: Not Given Sodium Chloride (Saline Flush) 10 ml IV Q8 [facility] Last Admin: 04/19/17 14:26 Dose: Not Given Vancomycin HCl (Vancomycin Per Pharmacy) 1 order IV UD [facility] Medical - PN: A/P - Time Spent With Patient Total time spent is greater than 50% in coordination of care (as documented) at patient's floor/unit and/or counseling patient: - Narrative A/P Narrative: A/P Infected Diabetic Ulcer: likely staph, on vanco and zosyn, for now, PICC once patient clears bactermia, managemet as per Dr Mccauley Acute Osteomyelitis: ON IVABX, management as per Dr Mccauley. Severe sepsis: due to infection, bp stable, lactic acid is normal, monitor for now, IV antibiotics and fluids Bacteremia: GPC in blood, due to Diabetic wound, IV abx, and source control ( done), monitor for now, once resolved consider picc DM: glucose elevated, monitor for now, on sliding scale. HTN bp st able, resume amlodipine and valsartan once bp improves. Hypothyroidism, : on levothyroxine LA on CKD: Nephrology following, Creat jumped from 4 to 4.5, hold torsemide, IVF for now, monitor . Patient needs HBOT as per Wound care. DVT on rivaroxaban. Full code. Medical - PN: Qual - VTE Deep Vein Thrombosis/Pulmonary Embolism Present on Admission: No
[2017-04-19] MEDS: FERROUS SULFATE 325 MG TABLET PO SCH ×3 (15:14→20:27)
[2017-04-19] MEDS: oxyCODONE HCL 5 MG TABLET PO PRN (16:43)
[2017-04-19] MEDS ORDERED: VANCOMYCIN 500 MG in 0.9 % SODIUM CHLORIDE 100 ML IV ONE (17:00)
--- NOTE | 2017-04-19 18:28 | Nephrology Consult Note ---
History of Present Illness - Reason for Consult Patient information: Note initiated : 04/19/17 at 6:24 pm Service Date, if different from initiated Date: [] Patient: Bart Pagan a 57 y/o M admitted on 04/18/17 for Debridement of Wound Right Foot. Chief Complaint: [] Consult date: 04/18/17 chronic renal failure Requesting physician: Johnny Schreiber - Chief Complaint LE pain - History of Present Illness Mr Pagan is a 57 y/o pleasant white male with PMH of DM type 2, CKD and other multiple medical issues who is been admitted with LE cellulitis He has been struggling with non healing LE wound for the last 4-6 weeks. He needed a transmetatarsal amputation in mid February, since then he was followed by wound care. He states that he had stitches (2) out on his LE wound as this was healing well and then over the weekend he reports having chills and weakness. By Monday when he returned to work the pain got worse and yesterday he could not stand on his feet anymore and noticed redness on LE and presented to ER subsequently. In ER he was found to have fever of 102 with tachycardia and normal BP. His labs were significant for elevated white count, lactic acid, worsening renal function and given all this and sepsis he was hospitalised for further intervention He is currently been managed with vanc and zosyn. He os s/p debridement of his wound this am. He is bactermic with staph aureus, sensitivity pending He denies SOB, CP, dizziness His LE edema is much improved, he was taking torsemide and metolazone to prevent LE edema and help healing of his wound for last 2 weeks He denies using NSAIDS He has n c/o nausea, vomiting no c/o diarrhea was not antibiotics for the last 3-4 weeks his DM control remains suboptimal with A1c OF 9.6 NEPHROLOGY IS BEEN CONSULTED FOR WORSENING RENAL FUNCTION Review of Systems All systems PM: reviewed and no additional remarkable complaints except as stated (as in HPI) Eyes: left: bulging eye Past History Past medical history: DM type 2 complicated by neuropathy, and likely diabetic nephropathy HTN Nephrotic syndrome gout currently on prednisone anemia of CKD renal osteodystrophy dyslipidemia bradycardia, Afib on rivaroxaban hypothyroidism morbid obesity Past surgical history: transmetatarsal amputation last mth Past family history: pt was adopted, no known details of family history Past social history: no h/o alcohol addiction or smoking Medications and Allergies Home Medications Medication Instructions Recorded Confirmed Type glipizide 10 mg tablet 10 mg PO BID tab 02/11/15 04/18/17 History rivaroxaban 15 mg tablet 15 mg PO DAILY 21 Days 03/27/15 04/18/17 History insulin detemir 100 unit/mL (3 mL) 80 unit SUB-Q BID ml 01/15/16 04/18/17 History subcutaneous pen amlodipine 10 mg tablet 10 mg PO QDAY #90 tab 05/27/16 04/18/17 Rx calcium acetate 667 mg capsule 667 mg PO TID 90 Days 05/27/16 04/18/17 Rx levothyroxine 150 mcg capsule 300 mcg PO ACB 05/27/16 04/18/17 History losartan 100 mg tablet 100 mg PO QDAY #90 tab 05/27/16 04/18/17 Rx torsemide 20 mg tablet 40 mg PO BID 90 Days 05/27/16 04/18/17 Rx insulin aspart 100 unit/mL 15 unit SUB-Q QPMAC ml 01/02/17 04/18/17 History subcutaneous pen atorvastatin 40 mg tablet 40 mg PO QDAY 90 Days 02/23/17 04/18/17 Rx ergocalciferol (vitamin D2) 50,000 50,000 unit PO QWEEK cap 03/24/17 04/18/17 History unit capsule hydralazine 25 mg tablet 25 mg PO BID tab 03/24/17 04/18/17 History prednisone 10 mg tablet 10 mg PO QDAY #30 tab 03/24/17 04/18/17 Rx metolazone 2.5 mg tablet 2.5 mg PO QOD PRN #20 tab NS 04/10/17 04/18/17 Rx Allopurinol [Zyloprim] 200 mg PO QDAY 04/18/17 04/18/17 History HYDROcodone/ACETAMINOPHEN 1 - 2 tab PO Q6HP PRN 04/18/17 04/18/17 History [Hydrocodon-Acetaminophn 10-325] Allergies Allergy/AdvReac Type Severity Reaction Status Date / Time Beta-Blockers AdvReac Hypotension Verified 04/18/17 10:06 (Beta-Adrenergic Bloc Exam - Vital Signs Vital signs: Temp Pulse Resp BP Pulse Ox 99.8 F H 66 20 136/76 94 04/19/17 17:45 04/19/17 16:00 04/19/17 15:36 04/19/17 15:36 04/19/17 15:36 - General Appearance General appearance: appears started age, obese EENT: mucous membranes moist Neck: no JVD Respiratory: clear Cardiology: no rub, no edema, normal S1, normal S2 Gastrointestinal: no tenderness, no organomegaly Integumentary: warm and dry (right lE with erythema,wound with clean dressing ) Neurologic: no focal deficit, no asterixis, alert and oriented x3 Musculoskeletal: no erythema, no cyanosis Psychiatric: mood/affect appropriate Results - Lab Results 04/19/17 04:34 04/19/17 04:34 Most recent lab results Calcium 8.2 mg/dl (8.6-10.4) L 04/19/17 04:34 Phosphorus 4.6 mg/dL (2.7-4.5) H 04/19/17 04:34 Magnesium 1.7 mg/dL (1.6-2.5) 04/19/17 04:34 Assessment and Plan (1) Acute on chronic renal failure s.creatinine last week was 2.4, BUN in 60's now s.creatinine is 4.0-4.5 he has h/o CKD stage IV with nephrotic syndrome from diabetic kidney disease he has acute worsening of his renal function likely secondary to sepsis I have discussed the labs and probable etiology of worsening renal function with the pt he as no acute indication for dialysis will monitor his renal function and symptoms closely agree with holding diuretics, no indication for the same given sepsis and no e/ o fluid excess will obtain urinary studies and check complements given staph aureus bacteremia though post infection GN will not present this early please dose meds to egfr please avoid potential nephrotoxic meds monitor renal function, I/O ANEMIA: will obtain work up, etiology multifactorial with sepsis and CKD contributing sepsis with staph aureus bacteremia pending sensitivity s/p debridement will need daily cultures until negative DM uncontrolled chronic been managed by hospitalist HTN: hold diuretics, hold ACEI hydralazine prn, if BP more than 150/90 Will follow along Appreciate hospitalist and wound care help in managing this pt Status: Acute
[2017-04-19] MEDS: OXANDROLONE 2.5 MG TABLET PO SCH (20:28)
[2017-04-19] MEDS: SENNOSIDES/DOCUSATE SODIUM 1 TAB TABLET PO SCH (20:28)
[2017-04-20 05:22] LABS: Mean Cell Volume 86.9 fL (80.0-100.0); Mean Corpuscular HGB Conc 33.6 g/dL (31.0-36.0); Mean Corpuscular Hemoglobin 29.2 pg (26.0-34.0); Platelet Count 208 K/mcL (140-440); Red Cell Distribution Width 15.9 % (11.5-14.5)
[2017-04-20] MEDS: 0.9 % SODIUM CHLORIDE 10 ML SYRINGE IV SCH ×3 (05:35→22:04)
[2017-04-20] MEDS: PIPERACILLIN SODIUM/TAZOBACTAM 2.25 GM in DEXTROSE 5% IN WATER 50 ML IV SCH ×3 (05:35→22:08)
[2017-04-20] MEDS: LEVOTHYROXINE 150 MCG TABLET PO SCH (05:35)
[2017-04-20 05:55] LABS: ALT/SGPT 34 U/l (0-40); Albumin 2.7 gm/dL (3.2-5.2); Albumin/Globulin Ratio 0.7 (1.0-2.3); Alkaline Phosphatase 98 U/L (39-117); Bilirubin,Direct < 0.2 mg/dL (0.0-0.3); Blood Urea Nitrogen 62 mg/dl (6-20); Gamma Glutamyl Transpeptidase 73 U/L (8-61); Magnesium 1.8 mg/dL (1.6-2.5); Uric Acid 8.9 mg/dL (2.5-8.0)
[2017-04-20 06:21] LABS: Anisocytosis 1+ (NONE SEEN); Band Neutrophils % 10 % (0-10); Lymphocytes % 10 % (15-49); Monocytes % (Manual) 8 % (1-12); Platelet Estimate NORMAL (NORMAL); RBC Morphology ABNORM (NORMAL); Segmented Neutrophils % 72 % (38-78); Toxic Granulation 1+ (NONE SEEN)
[2017-04-20] MEDS: INSULIN LISPRO 1 UNIT/0.01 ML UNIT SQ SCH ×4 (07:02→22:08)
[2017-04-20] MEDS: RIVAROXABAN 15 MG TABLET PO SCH (07:11)
[2017-04-20] MEDS: DOCUSATE SODIUM 100 MG CAPSULE PO SCH ×2 (07:12→22:03)
[2017-04-20] MEDS: predniSONE 10 MG TABLET PO SCH (07:12)
[2017-04-20] MEDS: FERROUS SULFATE 325 MG TABLET PO SCH ×4 (07:12→22:04)
[2017-04-20] MEDS: OXANDROLONE 2.5 MG TABLET PO SCH ×2 (07:12→22:03)
[2017-04-20] MEDS: ALLOPURINOL 100 MG TABLET PO SCH (07:12)
[2017-04-20] MEDS: MULTIVIT,THER IRON,CA,FA & MIN 1 TABLET PO SCH (07:13)
[2017-04-20] MEDS: ATORVASTATIN 20 MG TABLET PO SCH (07:16)
[2017-04-20] MEDS: GENTAMICIN SULFATE 40 MG, CLINDAMYCIN 300 MG, BACITRACIN 25,000 UNIT in SODIUM CHLORIDE... IRR SCH ×2 (07:43→22:04)
--- NOTE | 2017-04-20 10:08 | Internal Med Progress Note ---
Medical - PN: Subj Patient information: Note initiated : 04/20/17 at 9:35 am Service Date, if different from initiated Date: [] Patient: Bart Pagan a 57 y/o M admitted on 04/18/17 for Debridement of Wound Right Foot. Chief Complaint: [] Interval history: Mr. Pagan is a 57 year old M who underwentright foot metatarsal amputation on March 07. Patient has been recovering well and has been following up with wound care. On Monday patient saw on care physician and underwent treatment along with 2 stitches. Over the weekend patient has noted increasing swelling and pain discharge. By Monday patient started experiencing shaking chills and drenching sweats long with excessive exhaustion. Today at work patient was unable to bear weight due to increasing pain and swelling along with associated fever. He notices bandage soaked in bloody discharge. he is afebrile 102. e was subsequently directed by Dr. Cameron's officeto ER. initial workup was significant for elevated white count along with fever and sepsis. hospitalist service was consulted after case was discussed with Dr. Maresor admission initiation of antibiotics and likely initiation of hyperbaric treatments. at the time of examination patient is alert oriented. He denies any active distress except for amputation stump pain and swelling. he endorses to fevers. Denies diarrhea dysuria headache photophobia skin rash or joint pain or weight loss. 04/19: Pt seen examined, febrile overnight, blood cx positive, on vancomycin, antibiotics changed from rocephin ./ clinda to zosyn. Patient on pn tylenol. HBOT rx done today and he is s/p wound debridement by Dr Mccauley. Plan to continue antibiotics for now. LIkely staph related infection, but given DM wound will cover from gram neg as well as anerobic infections. Patient otherwise is doing well, denies any acute complaints besdies pain in the leg and some mechanical back discomfort. his labs show worsening renal functino, nephrology following, IV fluid rate increased, and torsemide held. 04/20-patient ongoing hyperbaric treatment. Pansensitive MSSA. Continue Zosyn. Ongoing wound and osteomyelitis management by Dr. Cameron.post debridement day 1. Wound care physician plans to continue HBO reatment/wound VAC placement. Creatinine 4.9. renal issues managed by nephrology. Hemoglobin 7.3. Transfuse 2 units PRBC. Surveillance cultures pending. ok count 11.9. persistent bandemia. vernight persistently shaking chills fever. MAXIMUM TEMPERATURE 101. - Constitutional Vitals: Vital Signs Temp Pulse Resp BP Pulse Ox 99.4 F H 78 19 141/68 95 04/20/17 07:58 04/20/17 07:58 04/20/17 07:58 04/20/17 07:58 04/20/17 07:58 Period Temp Pulse Resp BP Sys/Mancini Pulse Ox Last 24 Hr 98.9 F-101.5 F 66-80 10-20 94-145/28-78 92-95 Intake and Output 04/19/17 04/20/17 04/20/17 21:59 05:59 13:59 Intake Total 1915 / 1915 1500 / 1500 1372 / 1372 Output Total 600 / 600 450 / 450 200 / 200 Balance 1315 / 1315 1050 / 1050 1172 / 1172 Weight 241 lb 9.6 oz Intake & Output: Intake & Output 04/19/17 04/20/17 04/20/17 21:59 05:59 13:59 Intake Total 1915 / 1915 1500 / 1500 1372 / 1372 Output Total 600 / 600 450 / 450 200 / 200 Balance 1315 / 1315 1050 / 1050 1172 / 1172 Weight 241 lb 9.6 oz Intake: IV 515 / 515 1050 / 1050 1012 / 1012 Sodium Chloride 0.9% 1, 265 / 265 1000 / 1000 908 / 908 000 ml @ 125 mls/hr IV . Q8H ON LICENSE OF [facility] Rx#:[id number] Zosyn 2.25 gm In Dextrose 50 / 50 50 / 50 50 / 50 5% in Water 50 ml @ 100 mls/hr IV Q8H ON LICENSE OF [facility] Rx#: [id number] Vancomycin 500 mg In 100 / 100 Sodium Chloride 0.9% 100 ml @ 100 mls/hr IV ONCE ONE Rx#:[id number] Oral 1400 / 1400 450 / 450 360 / 360 Output: Void Amount 600 / 600 450 / 450 200 / 200 Other: Meal Lunch Breakfast Percent of Meal Consumed 100% 75% Feeding Ability Assist with Tray Set Up Independent General appearance: cooperative, no acute distress - Head Additional comments: lert oriented nonlabored breathing Persistent fever and shaking chills Nondistended abdomen lower extremity redness and tenderness improving Medical - PN: Obj Da - Labs CBC & Chem 7: 04/20/17 04:04 04/20/17 04:04 Labs: Abnormal Lab Results 04/20/17 04/20/17 04/19/17 04:04 04:04 14:01 WBC 11.9 H RBC 2.50 L Hgb 7.3 L Hct 21.7 L RDW 15.9 H Lymphocytes % 10 L WBC Morphology Abnorm A Toxic Granulation 1+ A RBC Morphology Abnorm A Anisocytosis 1+ A RBC Fragments Occ A Sodium 127 L Chloride 90 L Carbon Dioxide Anion Gap BUN 62 H Creatinine 4.9 H Glucose 144 H Hemoglobin A1c Uric Acid 8.9 H Calcium 8.3 L Phosphorus 6.2 H* GGT 73 H Lactate Dehydrogenase 264 H Total Protein Albumin 2.7 L Globulin 3.8 H Albumin/Globulin Ratio 0.7 L Prealbumin TSH Random Vancomycin 11.0 H 04/19/17 04/19/17 04:34 04:34 WBC RBC 2.73 L Hgb 8.0 L Hct 23.7 L RDW 15.6 H Lymphocytes % 8 L WBC Morphology Toxic Granulation RBC Morphology Anisocytosis RBC Fragments Sodium 132 L Chloride 92 L Carbon Dioxide 21 L Anion Gap 19.0 H BUN 62 H Creatinine 4.5 H Glucose 123 H Hemoglobin A1c 9.6 H Uric Acid 9.0 H Calcium 8.2 L Phosphorus 4.6 H GGT 75 H Lactate Dehydrogenase Total Protein 5.8 L Albumin 3.0 L Globulin Albumin/Globulin Ratio Prealbumin 14.3 L TSH 0.18 L Random Vancomycin Meds: Medications Acetaminophen (Tylenol) 650 mg PO Q4-6HP PRN PRN Reason: PAIN/FEVER > 101 Last Admin: 04/18/17 22:58 Dose: 650 mg Allopurinol (Zyloprim) 200 mg PO QDAY ON LICENSE OF [facility] Last Admin: 04/20/17 07:12 Dose: 200 mg Atorvastatin Calcium (Lipitor) 40 mg PO DAILY ON LICENSE OF [facility] Last Admin: 04/20/17 07:16 Dose: 40 mg Dextrose (Dextrose 50%) 0 ml IV UD PRN PRN Reason: Hypoglycemia Diagnostic Test (Pha) (Accu-Chek) 1 each FS ACHS ON LICENSE OF [facility] Last Admin: 04/20/17 07:00 Dose: 1 each Docusate Sodium (Colace) 100 mg PO BID ON LICENSE OF [facility] Last Admin: 04/20/17 07:12 Dose: 100 mg Ferrous Sulfate (Ferrous Sulfate) 325 mg PO CCHS ON LICENSE OF [facility] Last Admin: 04/20/17 07:12 Dose: 325 mg Glucose (Insta-Glucose) 15 gm PO PRN PRN PRN Reason: Hypoglycemia Guaifenesin/Codeine Phosphate (Robitussin Ac) 10 ml PO Q4HP PRN PRN Reason: Cough Hydralazine HCl (Apresoline) 25 mg PO BIDP PRN PRN Reason: Hypertension Gentamicin Sulfate 40 mg/Clindamycin Phosphate 300 mg/Bacitracin 25,000 unit/ Sodium Chloride 503 mls @ 0 mls/hr IRR BID JUANA PRN Reason: As Directed Last Admin: 04/20/17 07:43 Dose: Not Given Magnesium Sulfate (Magnesium Sulfate) 2 gm in 50 mls @ 50 mls/hr IV UD PRN PRN Reason: MG = or < 1.7 Acetaminophen (Ofirmev) 1,000 mg in 100 mls @ 200 mls/hr IV Q6HP PRN PRN Reason: PAIN/FEVER > 101 Last Infusion: 04/19/17 18:45 Dose: Infused Piperacillin Sod/Tazobactam (Sod 2.25 gm/ Dextrose) 50 mls @ 100 mls/hr IV Q8H ON LICENSE OF [facility] Last Infusion: 04/20/17 06:31 Dose: Infused Insulin Human Lispro (Humalog) 0 unit SQ ACHS JUANA PRN Reason: Protocol Last Admin: 04/20/17 07:02 Dose: 1 unit Iron Carb/Multivit/[place]/Folic Acid (Multivitamin W/Minerals) 1 tab PO DAILY ON LICENSE OF [facility] Last Admin: 04/20/17 07:13 Dose: 1 tab Levothyroxine Sodium (Synthroid) 300 mcg PO QAMAC ON LICENSE OF [facility] Last Admin: 04/20/17 05:35 Dose: 300 mcg Lorazepam (Ativan) 1 mg PO DAILYP PRN PRN Reason: ANXIETY/SEDATION Morphine Sulfate (Morphine) 2 mg IV TIDP PRN PRN Reason: Pain Ondansetron HCl (Zofran) 4 mg IV Q4-6HP PRN PRN Reason: Nausea And Vomiting Oxandrolone (Oxandrin) 5 mg PO BID ON LICENSE OF [facility] Last Admin: 04/20/17 07:12 Dose: 5 mg Oxycodone HCl (Roxicodone) 5 mg PO Q4HP PRN PRN Reason: Pain Last Admin: 04/19/17 16:43 Dose: 5 mg Potassium Chloride (Klor-Con) 40 meq PO DAILYP PRN PRN Reason: K+ < 3.5 Prednisone (Prednisone) 10 mg PO [facility] Last Admin: 04/20/17 07:12 Dose: 10 mg Rivaroxaban (Xarelto) 15 mg PO [facility] Last Admin: 04/20/17 07:11 Dose: 15 mg Senna/Docusate Sodium (Senna Plus Tablet) 1 tab PO HS ON LICENSE OF [facility] Last Admin: 04/19/17 20:28 Dose: 1 tab Sodium Chloride (Saline Flush) 10 ml IV Q8 ON LICENSE OF [facility] Last Admin: 04/20/17 05:35 Dose: Not Given Vancomycin HCl (Vancomycin Per Pharmacy) 1 order IV UD ON LICENSE OF [facility] Medical - PN: A/P - Time Spent With Patient Total time spent is greater than 50% in coordination of care (as documented) at patient's floor/unit and/or counseling patient: 25 - 35 minutes (1) Severe sepsis Status: Acute Current Visit: Yes (2) Necrotizing cellulitis Status: Acute Current Visit: Yes - Narrative A/P Narrative: A/P Infected Diabetic Ulcer: postoperative/debridement day 1. Managed by wound care physician dr. cameron. Ongoing HBO reatments Staph aureus bacteremia- mSSA. Continue Zosyn Acute Osteomyelitis: ON IVABX, management as per Dr Mccauley. Severe sepsis: linical improvement noted. White count at 11.9. Continue IV antibiotics and fluids DM: ontinue sliding scale. HTN bp st able, start amlodipine. Hold valsartan for now. Hypothyroidism, : on levothyroxine LA on CKD: Nephrology following, Creat jumped from 4 to 4.9. ARB on hold DVT on rivaroxaban. Full code. Medical - PN: Qual - VTE Deep Vein Thrombosis/Pulmonary Embolism Present on Admission: No
--- NOTE | 2017-04-20 10:14 | General Surgery Progress Note ---
Subjective Patient reports: no new complaints, other (Uneventful night after surgery. Came to wound clinic this morning for HBOT) Narrative: Note initiated : 04/20/17 at 10:10 am Service Date, if different from initiated Date: [] Patient: Bart Pagan 57 y/o M admitted on 04/18/17 for Debridement of Wound Right Foot. Chief Complaint: [] Objective Temp Pulse Resp BP Pulse Ox 99.4 F H 78 19 141/68 95 04/20/17 07:58 04/20/17 07:58 04/20/17 07:58 04/20/17 07:58 04/20/17 07:58 AVSS. No changes GPR. L/E Dressing Right foot stump CDI. NWB on right foot. Labs reviewed. Creatinine 4.5 Elevated Phosphorus Patient with CRF. Hct 21 ( Dilutional ) Hypothyroid and Protein malnutrition with low prealbumin. IDDM Hyperglycemia improving - Additional Data Intake & Output - Last 24 hours: Intake & Output 04/18/17 04/19/17 04/20/17 04/21/17 05:59 05:59 05:59 05:59 Intake Total 1684 / 2067 4465 / 4465 1372 / 1372 Output Total 1050 / 1050 1455 / 1455 200 / 200 Balance 634 / 1017 3010 / 3010 1172 / 1172 Weight 237 lb 8 oz 241 lb 9.6 oz - Labs 04/20/17 04:04 04/20/17 04:04 Diabetes panel 04/20/17 Range/Units 04:04 Sodium 127 L (133-145) mmol/L Potassium 4.2 (3.3-5.1) mmol/L Chloride 90 L (96-108) mmol/L Carbon Dioxide 22 (22-30) mmol/L BUN 62 H (6-20) mg/dl Creatinine 4.9 H (0.7-1.2) mg/dl Glucose 144 H (70-105) mg/dL Calcium 8.3 L (8.6-10.4) mg/dl AST 30 (0-37) U/l ALT 34 (0-40) U/l Alkaline Phosphatase 98 (39-117) U/L Total Protein 6.5 (5.9-8.4) gm/dL Albumin 2.7 L (3.2-5.2) gm/dL Triglycerides 126 (<150) mg/dl Calcium panel 04/20/17 Range/Units 04:04 Calcium 8.3 L (8.6-10.4) mg/dl Phosphorus 6.2 H* (2.7-4.5) mg/dL Albumin 2.7 L (3.2-5.2) gm/dL Pituitary panel 04/20/17 Range/Units 04:04 Sodium 127 L (133-145) mmol/L Potassium 4.2 (3.3-5.1) mmol/L Chloride 90 L (96-108) mmol/L Carbon Dioxide 22 (22-30) mmol/L BUN 62 H (6-20) mg/dl Creatinine 4.9 H (0.7-1.2) mg/dl Glucose 144 H (70-105) mg/dL Calcium 8.3 L (8.6-10.4) mg/dl Adrenal panel 04/20/17 Range/Units 04:04 Sodium 127 L (133-145) mmol/L Potassium 4.2 (3.3-5.1) mmol/L Chloride 90 L (96-108) mmol/L Carbon Dioxide 22 (22-30) mmol/L BUN 62 H (6-20) mg/dl Creatinine 4.9 H (0.7-1.2) mg/dl Glucose 144 H (70-105) mg/dL Calcium 8.3 L (8.6-10.4) mg/dl Total Bilirubin 0.3 (0.0-1.0) mg/dL AST 30 (0-37) U/l ALT 34 (0-40) U/l Alkaline Phosphatase 98 (39-117) U/L Total Protein 6.5 (5.9-8.4) gm/dL Albumin 2.7 L (3.2-5.2) gm/dL Assessment and Plan (1) Sepsis affecting skin Problem details: NECROTIZING skin and soft tissue infection. SEPSIS Uncontrolled diabetes, Anemia, CRF PLAN: HBOT Now later OR debridement / lavage and deep tissue biopsies and cultures. Status: Acute Current Visit: Yes (2) Foot infection Status: Acute Current Visit: Yes (3) Severe sepsis Status: Acute Assessment and plan: Assessment: POD # 1. Progressing well. Hypothyroidism / Hypoproteinemia Pre albumin 14 / Anemia Hct 21 ( Dilutional ) Hypothyroidism , NIDDM A1c > 9 Wound and Blood cultures S. aureus Jones sensitive Plan ; Continue current treatment. HBOT and wound care. For dressing change and wound VAC placement on Monday04/21/2017. OK to get OOB and sit out in chair. Incentive spirometry q 2 hrly when awake, NWB Right foot and leg. OK to go to BR with FWW walker NWB Current Visit: Yes - Time Spent With Patient Total time spent is greater than 50% in coordination of care (as documented) at patient's floor/unit and/or counseling patient:
[2017-04-20] MEDS ORDERED: ceFAZolin 1 GM VIAL IV SCH (12:45)
[2017-04-20] MEDS ORDERED: 0.9 % SODIUM CHLORIDE 250 ML IV SCH (12:45)
[2017-04-20] MEDS ORDERED: MAGNESIUM CITRATE 300 ML ORAL.SOL PO ONE (16:00)
--- NOTE | 2017-04-20 16:12 | Nephrology Progress Note ---
Subjective Patient information: Note initiated : 04/20/17 at 4:08 pm Service Date, if different from initiated Date: [] Patient: Bart Pagan 57 y/o M admitted on 04/18/17 for Debridement of Wound Right Foot. Chief Complaint: [] Principal diagnosis: sepsis Interval history: No overnight events ongoing hyperbaric treatments, s/p debridement yesterday Vitals stable, fever still + but lower than before no edema, no SOB, CP No nausea, vomiting no uremic signs non oliguric Pertinent ROS: as mentioned above Objective - Vital Signs Vital signs: Vital Signs Temp Pulse Pulse Resp BP Pulse Ox 04/20/17 11:53 99.2 F H 76 19 120/68 92 04/20/17 07:58 99.4 F H 78 19 141/68 95 04/20/17 07:45 78 19 95 04/20/17 04:00 100.6 F H 78 75 16 145/72 94 04/20/17 00:00 100.8 F H 75 16 140/78 95 04/19/17 20:00 98.9 F 80 80 18 125/65 94 04/19/17 18:30 99.6 F H 04/19/17 18:20 100.5 F H 04/19/17 17:45 99.8 F H 04/19/17 16:45 99.4 F H Intake and Output 04/20/17 04/20/17 04/20/17 05:59 13:59 21:59 Intake Total 1500 / 1500 1372 / 1372 Output Total 450 / 450 200 / 200 Balance 1050 / 1050 1172 / 1172 Intake: IV 1050 / 1050 1012 / 1012 Sodium Chloride 0.9% 1, 1000 / 1000 908 / 908 000 ml @ 125 mls/hr IV . Q8H [facility] Rx#:[id number] Zosyn 2.25 gm In Dextrose 50 / 50 50 / 50 5% in Water 50 ml @ 100 mls/hr IV Q8H [facility] Rx#: [id number] Oral 450 / 450 360 / 360 Output: Void Amount 450 / 450 200 / 200 Other: Meal Breakfast Percent of Meal Consumed 75% Feeding Ability Independent Intake & Output: Intake & Output 04/20/17 04/20/17 04/20/17 05:59 13:59 21:59 Intake Total 1500 / 1500 1372 / 1372 Output Total 450 / 450 200 / 200 Balance 1050 / 1050 1172 / 1172 Intake: IV 1050 / 1050 1012 / 1012 Sodium Chloride 0.9% 1, 1000 / 1000 908 / 908 000 ml @ 125 mls/hr IV . Q8H [facility] Rx#:[id number] Zosyn 2.25 gm In Dextrose 50 / 50 50 / 50 5% in Water 50 ml @ 100 mls/hr IV Q8H [facility] Rx#: [id number] Oral 450 / 450 360 / 360 Output: Void Amount 450 / 450 200 / 200 Other: Meal Breakfast Percent of Meal Consumed 75% Feeding Ability Independent - General Appearance General appearance: appears started age, obese EENT: mucous membranes moist Neck: no JVD Respiratory: clear Cardiology: no rub, no edema, normal S1, normal S2 Gastrointestinal: no tenderness, no guarding Integumentary: warm and dry Neurologic: no asterixis, alert and oriented x3 Musculoskeletal: no cyanosis, no clubbing Psychiatric: mood/affect appropriate - Lab 04/20/17 04:04 04/20/17 04:04 Most recent lab results Calcium 8.3 mg/dl (8.6-10.4) L 04/20/17 04:04 Phosphorus 6.2 mg/dL (2.7-4.5) H* 04/20/17 04:04 Magnesium 1.8 mg/dL (1.6-2.5) 04/20/17 04:04 Assessment and Plan (1) Acute on chronic renal failure s.creatinine is upto 4.9, progressive worsening renal function in the setting of sepsis,MSSA bacteremia, uncontrolled DM and severe anemia no hyperkalemia, darren cidosis phos upto 6.4 Hb down to 7.3, etiology from CKD and ongoing issues mild hyponatremia labs discussed with the patient no indication for dialysis yet continue to hold diuretics, losartan consider deescalating antibiotics may need prbc transfusion if Hb continues to trend down will check UA today monitor I/O, renal function, daily weight will follow along Status: Acute
[2017-04-20] MEDS: CALCIUM ACETATE 667 MG CAPSULE PO SCH (17:33)
[2017-04-20] MEDS: SENNOSIDES/DOCUSATE SODIUM 1 TAB TABLET PO SCH (22:03)
[2017-04-20] MEDS ORDERED: VANCOMYCIN 1,500 MG in 0.9 % SODIUM CHLORIDE 500 ML IV ONE (23:00)
[2017-04-21] MEDS: ACETAMINOPHEN 325 MG TABLET PO PRN (00:52)
[2017-04-21 04:47] LABS: Mean Cell Volume 86.9 fL (80.0-100.0); Mean Corpuscular HGB Conc 33.4 g/dL (31.0-36.0); Mean Corpuscular Hemoglobin 29.1 pg (26.0-34.0); Platelet Count 248 K/mcL (140-440); Red Cell Distribution Width 15.6 % (11.5-14.5)
[2017-04-21 05:07] LABS: ALT/SGPT 54 U/l (0-40); Albumin 2.8 gm/dL (3.2-5.2); Albumin/Globulin Ratio 0.7 (1.0-2.3); Alkaline Phosphatase 120 U/L (39-117); Bilirubin,Direct < 0.2 mg/dL (0.0-0.3); Blood Urea Nitrogen 73 mg/dl (6-20); Gamma Glutamyl Transpeptidase 91 U/L (8-61); Magnesium 2.3 mg/dL (1.6-2.5); Uric Acid 8.2 mg/dL (2.5-8.0)
[2017-04-21 05:25] LABS: Band Neutrophils % 7 % (0-10); Basophils % (Manual) 1 % (0-2); Eosinophils % (Manual) 2 % (0-7); Lymphocytes % 8 % (15-49); Monocytes % (Manual) 7 % (1-12); Platelet Estimate NORMAL (NORMAL); RBC Morphology ABNORM (NORMAL); Segmented Neutrophils % 74 % (38-78); Toxic Granulation FEW (NONE SEEN)
[2017-04-21] MEDS: 0.9 % SODIUM CHLORIDE 10 ML SYRINGE IV SCH ×3 (06:10→20:42)
[2017-04-21] MEDS: PIPERACILLIN SODIUM/TAZOBACTAM 2.25 GM in DEXTROSE 5% IN WATER 50 ML IV SCH ×3 (06:10→23:29)
[2017-04-21] MEDS: INSULIN LISPRO 1 UNIT/0.01 ML UNIT SQ SCH ×4 (07:29→20:41)
[2017-04-21] MEDS: RIVAROXABAN 15 MG TABLET PO SCH (07:29)
[2017-04-21] MEDS: LEVOTHYROXINE 150 MCG TABLET PO SCH (07:30)
[2017-04-21] MEDS: FERROUS SULFATE 325 MG TABLET PO SCH ×4 (07:30→20:40)
[2017-04-21] MEDS: DOCUSATE SODIUM 100 MG CAPSULE PO SCH ×2 (07:30→20:40)
[2017-04-21] MEDS: MULTIVIT,THER IRON,CA,FA & MIN 1 TABLET PO SCH (07:30)
[2017-04-21] MEDS: ALLOPURINOL 100 MG TABLET PO SCH (07:30)
[2017-04-21] MEDS: ATORVASTATIN 20 MG TABLET PO SCH (07:30)
[2017-04-21] MEDS: OXANDROLONE 2.5 MG TABLET PO SCH ×2 (07:30→20:40)
[2017-04-21] MEDS: predniSONE 10 MG TABLET PO SCH (07:30)
[2017-04-21] MEDS: CALCIUM ACETATE 667 MG CAPSULE PO SCH ×3 (07:30→17:19)
[2017-04-21] MEDS: GENTAMICIN SULFATE 40 MG, CLINDAMYCIN 300 MG, BACITRACIN 25,000 UNIT in SODIUM CHLORIDE... IRR SCH (07:31)
[2017-04-21] MEDS: oxyCODONE HCL 5 MG TABLET PO PRN ×3 (07:40→21:49)
[2017-04-21] MEDS ORDERED: amLODIPine 10 MG TABLET PO SCH (09:00)
[2017-04-21] MEDS ORDERED: 0.9 % SODIUM CHLORIDE 10 ML SYRINGE IV PRN ×2 (09:43→10:47)
[2017-04-21] MEDS ORDERED: ACETAMINOPHEN 325 MG TABLET PO PRN (10:47)
[2017-04-21] MEDS ORDERED: MAGNESIUM SULFATE 2 GM/50 ML BAG IV PRN (10:47)
[2017-04-21] MEDS ORDERED: guaiFENesin/CODEINE 10 ML UDC PO PRN (10:47)
[2017-04-21] MEDS ORDERED: ONDANSETRON 4 MG/2 ML VIAL IV PRN (10:47)
[2017-04-21] MEDS ORDERED: DEXTROSE 50% 50 ML VIAL IV PRN (10:47)
[2017-04-21] MEDS ORDERED: POTASSIUM CHLORIDE 20 MEQ PACKET PO PRN (10:47)
[2017-04-21] MEDS ORDERED: hydrALAZINE 25 MG TABLET PO PRN (10:47)
[2017-04-21] MEDS ORDERED: LORazepam 1 MG TABLET PO PRN (10:47)
[2017-04-21] MEDS ORDERED: ACETAMINOPHEN 1,000 MG/100 ML BOTTLE IV PRN (10:47)
[2017-04-21] MEDS ORDERED: DEXTROSE 31 GM ORAL.SUSP PO PRN (10:47)
--- NOTE | 2017-04-21 10:58 | Internal Med Progress Note ---
Medical - PN: Subj Patient information: Note initiated : 04/21/17 at 10:55 am Service Date, if different from initiated Date: [] Patient: Bart Pagan a 57 y/o M admitted on 04/18/17 for Debridement of Wound Right Foot. Chief Complaint: [] Interval history: Mr. Pagan is a 57 year old M who underwentright foot metatarsal amputation on March 07. Patient has been recovering well and has been following up with wound care. On Monday patient saw on care physician and underwent treatment along with 2 stitches. Over the weekend patient has noted increasing swelling and pain discharge. By Monday patient started experiencing shaking chills and drenching sweats long with excessive exhaustion. Today at work patient was unable to bear weight due to increasing pain and swelling along with associated fever. He notices bandage soaked in bloody discharge. he is afebrile 102. e was subsequently directed by Dr. Cameron's officeto ER. initial workup was significant for elevated white count along with fever and sepsis. hospitalist service was consulted after case was discussed with Dr. Maresor admission initiation of antibiotics and likely initiation of hyperbaric treatments. at the time of examination patient is alert oriented. He denies any active distress except for amputation stump pain and swelling. he endorses to fevers. Denies diarrhea dysuria headache photophobia skin rash or joint pain or weight loss. 04/19: Pt seen examined, febrile overnight, blood cx positive, on vancomycin, antibiotics changed from rocephin ./ clinda to zosyn. Patient on pn tylenol. HBOT rx done today and he is s/p wound debridement by Dr Mccauley. Plan to continue antibiotics for now. LIkely staph related infection, but given DM wound will cover from gram neg as well as anerobic infections. Patient otherwise is doing well, denies any acute complaints besdies pain in the leg and some mechanical back discomfort. his labs show worsening renal functino, nephrology following, IV fluid rate increased, and torsemide held. 04/20-patient ongoing hyperbaric treatment. Pansensitive MSSA. Continue Zosyn. Ongoing wound and osteomyelitis management by Dr. Cameron.post debridement day 1. Wound care physician plans to continue HBO reatment/wound VAC placement. Creatinine 4.9. renal issues managed by nephrology. Hemoglobin 7.3. Transfuse 2 units PRBC. Surveillance cultures pending. ok count 11.9. persistent bandemia. vernight persistently shaking chills fever. MAXIMUM TEMPERATURE 101. 9/1. Patient doing well. No overnight events and rested well. Patient however is anxious about treatment plan given underlying osteomyelitis he would rather want further amputation to remove infected bone. I explained the current treatment is being directed as per wound care physician's ecommendations including debridement/hBO/ IV antibiotics. nursing staff expressed concerns about elevated blood sugars. Patient restarted on 20 twice a day Lantus. Improved fevers shaking chills. Tolerating hyperbaric oxygen treatments well. MSSA on blood culture. Surveillance blood cultures negative so far. white count down to 11.7. BUN and 73 creatinine 4.7.off vancomycin. Continue Zosyn. - Constitutional Vitals: Vital Signs Temp Pulse Resp BP Pulse Ox 98.4 F 78 16 154/71 93 04/21/17 06:42 04/21/17 07:55 04/21/17 07:55 04/21/17 06:42 04/21/17 07:55 Period Temp Pulse Resp BP Sys/Mancini Pulse Ox Last 24 Hr 97.6 F-99.9 F 57-78 16-22 120-158/56-76 91-96 Intake and Output 04/20/17 04/21/17 04/21/17 21:59 05:59 13:59 Intake Total 50 / 50 1250 / 1250 976 / 976 Output Total 300 / 300 875 / 875 400 / 400 Balance -250 / -250 375 / 375 576 / 576 Weight 247 lb Intake & Output: Intake & Output 04/20/17 04/21/17 04/21/17 21:59 05:59 13:59 Intake Total 50 / 50 1250 / 1250 976 / 976 Output Total 300 / 300 875 / 875 400 / 400 Balance -250 / -250 375 / 375 576 / 576 Weight 247 lb Intake: IV 50 / 50 50 / 50 616 / 616 Zosyn 2.25 gm In Dextrose 50 / 50 50 / 50 50 / 50 5% in Water 50 ml @ 100 mls/hr IV Q8H [facility] Rx#: [id number] Vancomycin 1,500 mg In 0 / 0 Sodium Chloride 0.9% 500 ml @ 333.3 mls/hr IV ONCE ONE Rx#:[id number] Oral 1200 / 1200 360 / 360 Output: Void Amount 300 / 300 875 / 875 400 / 400 Other: Meal Breakfast Percent of Meal Consumed 100% General appearance: morbidly obese Exam: anxious nonlabored breathing Nondistended abdomen Rt Lower extremity redness swelling at amputation stump much improved no pallor Medical - PN: Obj Da - Labs CBC & Chem 7: 04/21/17 03:45 04/21/17 03:45 Labs: Abnormal Lab Results 04/21/17 04/21/17 04/20/17 03:45 03:45 22:11 WBC 11.7 H RBC 3.00 L Hgb 8.7 L 8.5 L Hct 26.0 L 25.6 L RDW 15.6 H Lymphocytes % 8 L WBC Morphology Abnorm A Toxic Granulation Few A RBC Morphology Abnorm A Anisocytosis RBC Fragments Few A Sodium 129 L Chloride 89 L Carbon Dioxide Anion Gap 17.0 H BUN 73 H Creatinine 4.7 H Glucose 318 H Hemoglobin A1c Uric Acid 8.2 H Calcium Phosphorus 5.4 H GGT 91 H AST 56 H ALT 54 H Alkaline Phosphatase 120 H Lactate Dehydrogenase Total Protein Albumin 2.8 L Globulin 4.0 H Albumin/Globulin Ratio 0.7 L Prealbumin Triglycerides 157 H TSH Random Vancomycin 04/20/17 04/20/17 04/20/17 16:00 04:04 04:04 WBC 11.9 H RBC 2.50 L Hgb 7.3 L Hct 21.7 L RDW 15.9 H Lymphocytes % 10 L WBC Morphology Abnorm A Toxic Granulation 1+ A RBC Morphology Abnorm A Anisocytosis 1+ A RBC Fragments Occ A Sodium 127 L Chloride 90 L Carbon Dioxide Anion Gap BUN 62 H Creatinine 4.9 H Glucose 144 H Hemoglobin A1c Uric Acid 8.9 H Calcium 8.3 L Phosphorus 6.2 H* GGT 73 H AST ALT Alkaline Phosphatase Lactate Dehydrogenase 264 H Total Protein Albumin 2.7 L Globulin 3.8 H Albumin/Globulin Ratio 0.7 L Prealbumin Triglycerides TSH Random Vancomycin 13.0 H 04/19/17 04/19/17 04/19/17 14:01 04:34 04:34 WBC RBC 2.73 L Hgb 8.0 L Hct 23.7 L RDW 15.6 H Lymphocytes % 8 L WBC Morphology Toxic Granulation RBC Morphology Anisocytosis RBC Fragments Sodium 132 L Chloride 92 L Carbon Dioxide 21 L Anion Gap 19.0 H BUN 62 H Creatinine 4.5 H Glucose 123 H Hemoglobin A1c 9.6 H Uric Acid 9.0 H Calcium 8.2 L Phosphorus 4.6 H GGT 75 H AST ALT Alkaline Phosphatase Lactate Dehydrogenase Total Protein 5.8 L Albumin 3.0 L Globulin Albumin/Globulin Ratio Prealbumin 14.3 L Triglycerides TSH 0.18 L Random Vancomycin 11.0 H Meds: Medications Acetaminophen (Tylenol) 650 mg PO Q4-6HP PRN PRN Reason: PAIN/FEVER > 101 Allopurinol (Zyloprim) 200 mg PO QDAY JUANA Amlodipine Besylate (Norvasc) 10 mg PO QDAY JUANA Atorvastatin Calcium (Lipitor) 40 mg PO DAILY [facility] Calcium Acetate (Phoslo) 667 mg PO TIDCC JUANA Dextrose (Dextrose 50%) 0 ml IV UD PRN PRN Reason: Hypoglycemia Diagnostic Test (Pha) (Accu-Chek) 1 each FS ACHS JUANA Docusate Sodium (Colace) 100 mg PO BID JUANA Ferrous Sulfate (Ferrous Sulfate) 325 mg PO CCHS JUANA Glucose (Insta-Glucose) 15 gm PO PRN PRN PRN Reason: Hypoglycemia Guaifenesin/Codeine Phosphate (Robitussin Ac) 10 ml PO Q4HP PRN PRN Reason: Cough Heparin Sodium (Porcine) (Heparin Flush) 2 ml IV Q12 JUANA Hydralazine HCl (Apresoline) 25 mg PO BIDP PRN PRN Reason: Hypertension Gentamicin Sulfate 40 mg/Clindamycin Phosphate 300 mg/Bacitracin 25,000 unit/ Sodium Chloride 503 mls @ 0 mls/hr IRR BID JUANA PRN Reason: As Directed Magnesium Sulfate (Magnesium Sulfate) 2 gm in 50 mls @ 50 mls/hr IV UD PRN PRN Reason: MG = or < 1.7 Acetaminophen (Ofirmev) 1,000 mg in 100 mls @ 200 mls/hr IV Q6HP PRN PRN Reason: PAIN/FEVER > 101 Piperacillin Sod/Tazobactam (Sod 2.25 gm/ Dextrose) 50 mls @ 100 mls/hr IV Q8H [facility] Insulin Human Lispro (Humalog) 0 unit SQ ACHS JUANA PRN Reason: Protocol Iron Carb/Multivit/Meade/Folic Acid (Multivitamin W/Minerals) 1 tab PO DAILY [facility]UA[facility] Levothyroxine Sodium (Synthroid) 300 mcg PO QAMAC JUANA Lorazepam (Ativan) 1 mg PO DAILYP PRN PRN Reason: ANXIETY/SEDATION Morphine Sulfate (Morphine) 2 mg IV TIDP PRN PRN Reason: Pain Ondansetron HCl (Zofran) 4 mg IV Q4-6HP PRN PRN Reason: Nausea And Vomiting Oxandrolone (Oxandrin) 5 mg PO BID JUANA Oxycodone HCl (Roxicodone) 5 mg PO Q4HP PRN PRN Reason: Pain Potassium Chloride (Klor-Con) 40 meq PO DAILYP PRN PRN Reason: K+ < 3.5 Prednisone (Prednisone) 10 mg PO QAC JUANA Rivaroxaban (Xarelto) 15 mg PO QAC JUANA Senna/Docusate Sodium (Senna Plus Tablet) 1 tab PO HS JUANA Sodium Chloride (Saline Flush) 10 ml IV Q8 JUANA Sodium Chloride (Saline Flush) 10 ml IV UD PRN PRN Reason: FLUSH Medical - PN: A/P - Time Spent With Patient Total time spent is greater than 50% in coordination of care (as documented) at patient's floor/unit and/or counseling patient: 25 - 35 minutes (1) Severe sepsis Status: Acute Current Visit: Yes (2) Necrotizing cellulitis Status: Acute Current Visit: Yes - Narrative A/P Narrative: A/P * Infected Diabetic Ulcer: postoperative/debridement day 2. Managed by wound care physician dr. cameron. Ongoing plan twice daily HBO treatments] * Staph aureus bacteremia- mSSA. Continue Zosyn. Vancomycin DC'd * Acute Osteomyelitis: ON IVABX, management as per Dr Mccauley. * Severe sepsis: Clinical improvement noted. White count at 11.7. * DM II: elevated blood sugars. Start long-acting insulin 20 twice a day along with ontinuation of sliding scale. * HTN bp st able, start amlodipine. Hold valsartan for now. * Hypothyroidism, : on levothyroxine * LA on CKD: Nephrology following, Creat jumped from 4 to 4.9. ARB on hold * DVT on rivaroxaban. * Full code. Medical - PN: Qual - VTE Deep Vein Thrombosis/Pulmonary Embolism Present on Admission: No
--- NOTE | 2017-04-21 13:01 | XRay Report ---
CLINICAL INFORMATION: PICC PLACEMENT COMPARISON: 04/18/2017. FINDINGS: Right PICC line tip overlies the tricuspid valve. The heart is mildly enlarged, but unchanged. Mediastinum and pulmonary vessels are normal. There is minor bibasilar atelectasis which is new. IMPRESSION: 1. PICC line tip near the tricuspid valve. Nurses were instructed withdraw the line 7 cm. 2. Mild bibasilar atelectasis Interpreted and Authenticated by: Nakul Huynh 04/21/17
[2017-04-21] MEDS ORDERED: INSULIN GLARGINE, HUMAN 1 UNIT/0.01 ML SQ ONE (13:02)
[2017-04-21 13:58] LABS: Appearance,Urine CLEAR; Bacteria,Urine 0 /hpf (0); Bilirubin,Urine NEG (NEG); Color,Urine YELLOW; Glucose,Urine (UA) >=500 mg/dL (NEG); Leukocyte Esterase,Urine NEG /uL (NEG); Nitrate,Urine NEG (NEG); Protein,Urine >=500 mg/dL (NEG); Urine Blood 0.03 mg/dL (<0.03); Urine RBC 1 /hpf (0-1); Urine Squamous Epithelial Cell 0 /hpf (0-4); Urine WBC < 1 /hpf (0-4); Urobilinogen,Urine NEG (NEG)
[2017-04-21] MEDS ORDERED: BISACODYL 10 MG SUPP.RECT PR ONE (16:00)
--- NOTE | 2017-04-21 19:10 | General Surgery Progress Note ---
Subjective Patient reports: other (Patient seen several times since this morning. Had 2 HBOT today. Dressing changed and wound VAC applied. ) Narrative: Note initiated : 04/21/17 at 7:07 pm Service Date, if different from initiated Date: [] Patient: Bart Pagan 57 y/o M admitted on 04/18/17 for Debridement of Wound Right Foot. Chief Complaint: [] Objective Temp Pulse Resp BP Pulse Ox 97.9 F 64 18 150/73 91 04/21/17 16:30 04/21/17 16:30 04/21/17 16:30 04/21/17 16:30 04/21/17 16:30 AVSS. STONEY No interval changes. Had 2 units of PRBC transfusion for anemia. Current HCT 26, C WBC trending down. Creatinine 4.7, Phosphorus trending down Packing removed. Clean wound with pale granulations. Wound VAC applied. - Additional Data Intake & Output - Last 24 hours: Intake & Output 04/19/17 04/20/17 04/21/17 04/22/17 05:59 05:59 05:59 05:59 Intake Total 1684 / 2067 4465 / 4465 2912 / 2912 1676 / 1676 Output Total 1050 / 1050 1455 / 1455 1375 / 1375 800 / 800 Balance 634 / 1017 3010 / 3010 1537 / 1537 876 / 876 Weight 237 lb 8 oz 241 lb 9.6 oz 247 lb 247 lb - Labs 04/21/17 03:45 04/21/17 03:45 Diabetes panel 04/21/17 Range/Units 03:45 Sodium 129 L (133-145) mmol/L Potassium 3.8 (3.3-5.1) mmol/L Chloride 89 L (96-108) mmol/L Carbon Dioxide 23 (22-30) mmol/L BUN 73 H (6-20) mg/dl Creatinine 4.7 H (0.7-1.2) mg/dl Glucose 318 H (70-105) mg/dL Calcium 8.8 (8.6-10.4) mg/dl AST 56 H (0-37) U/l ALT 54 H (0-40) U/l Alkaline Phosphatase 120 H (39-117) U/L Total Protein 6.8 (5.9-8.4) gm/dL Albumin 2.8 L (3.2-5.2) gm/dL Triglycerides 157 H (<150) mg/dl Calcium panel 04/21/17 Range/Units 03:45 Calcium 8.8 (8.6-10.4) mg/dl Phosphorus 5.4 H (2.7-4.5) mg/dL Albumin 2.8 L (3.2-5.2) gm/dL Pituitary panel 04/21/17 Range/Units 03:45 Sodium 129 L (133-145) mmol/L Potassium 3.8 (3.3-5.1) mmol/L Chloride 89 L (96-108) mmol/L Carbon Dioxide 23 (22-30) mmol/L BUN 73 H (6-20) mg/dl Creatinine 4.7 H (0.7-1.2) mg/dl Glucose 318 H (70-105) mg/dL Calcium 8.8 (8.6-10.4) mg/dl Adrenal panel 04/21/17 Range/Units 03:45 Sodium 129 L (133-145) mmol/L Potassium 3.8 (3.3-5.1) mmol/L Chloride 89 L (96-108) mmol/L Carbon Dioxide 23 (22-30) mmol/L BUN 73 H (6-20) mg/dl Creatinine 4.7 H (0.7-1.2) mg/dl Glucose 318 H (70-105) mg/dL Calcium 8.8 (8.6-10.4) mg/dl Total Bilirubin 0.6 (0.0-1.0) mg/dL AST 56 H (0-37) U/l ALT 54 H (0-40) U/l Alkaline Phosphatase 120 H (39-117) U/L Total Protein 6.8 (5.9-8.4) gm/dL Albumin 2.8 L (3.2-5.2) gm/dL Assessment and Plan (1) Sepsis affecting skin Problem details: NECROTIZING skin and soft tissue infection. SEPSIS Uncontrolled diabetes, Anemia, CRF PLAN: HBOT Now later OR debridement / lavage and deep tissue biopsies and cultures. Status: Acute Assessment and plan: Progressing well from wound care point of view. Medical management by Hospitalist and CRF management by [employer]oc[employer] Will complete 10 HBOT total treatments, Later continue with wound care and monitor. Current Visit: Yes (2) Foot infection Status: Acute Current Visit: Yes (3) Severe sepsis Status: Acute Assessment and plan: Assessment: POD # 1. Progressing well. Hypothyroidism / Hypoproteinemia Pre albumin 14 / Anemia Hct 21 ( Dilutional ) Hypothyroidism , NIDDM A1c > 9 Wound and Blood cultures S. aureus Jones sensitive Plan ; Continue current treatment. HBOT and wound care. For dressing change and wound VAC placement on Monday04/21/2017. OK to get OOB and sit out in chair. Incentive spirometry q 2 hrly when awake, NWB Right foot and leg. OK to go to BR with FWW walker NWB Current Visit: Yes - Time Spent With Patient Total time spent is greater than 50% in coordination of care (as documented) at patient's floor/unit and/or counseling patient:
[2017-04-21] MEDS: INSULIN GLARGINE, HUMAN 1 UNIT/0.01 ML SQ SCH (20:41)
[2017-04-21] MEDS ORDERED: SENNOSIDES/DOCUSATE SODIUM 1 TAB TABLET PO SCH (21:00)
[2017-04-21] MEDS ORDERED: GENTAMICIN SULFATE 40 MG, CLINDAMYCIN 300 MG, BACITRACIN 25,000 UNIT in SODIUM CHLORIDE... IRR SCH (21:00)
[2017-04-22 06:21] LABS: Mean Cell Volume 87.3 fL (80.0-100.0); Mean Corpuscular HGB Conc 33.5 g/dL (31.0-36.0); Mean Corpuscular Hemoglobin 29.3 pg (26.0-34.0); Platelet Count 309 K/mcL (140-440); RBC 3.07 M/mcL (4.50-5.90); Red Cell Distribution Width 15.2 % (11.5-14.5)
[2017-04-22] MEDS: 0.9 % SODIUM CHLORIDE 10 ML SYRINGE IV SCH ×4 (06:27→21:36)
[2017-04-22] MEDS: PIPERACILLIN SODIUM/TAZOBACTAM 2.25 GM in DEXTROSE 5% IN WATER 50 ML IV SCH ×3 (06:27→21:35)
[2017-04-22 06:46] LABS: ALT/SGPT 46 U/l (0-40); Albumin 2.7 gm/dL (3.2-5.2); Albumin/Globulin Ratio 0.6 (1.0-2.3); Alkaline Phosphatase 110 U/L (39-117); Bilirubin,Direct < 0.2 mg/dL (0.0-0.3); Blood Urea Nitrogen 68 mg/dl (6-20); Gamma Glutamyl Transpeptidase 88 U/L (8-61); Magnesium 2.4 mg/dL (1.6-2.5); Uric Acid 8.3 mg/dL (2.5-8.0)
[2017-04-22 07:01] LABS: Band Neutrophils % 10 % (0-10); Eosinophils % (Manual) 4 % (0-7); Lymphocytes % 10 % (15-49); Monocytes % (Manual) 1 % (1-12); Myelocytes % 1 % (0-0); Platelet Estimate NORMAL (NORMAL); RBC Morphology ABNORM (NORMAL); Segmented Neutrophils % 74 % (38-78)
[2017-04-22] MEDS ORDERED: LEVOTHYROXINE 150 MCG TABLET PO SCH (07:30)
[2017-04-22] MEDS ORDERED: predniSONE 10 MG TABLET PO SCH (08:00)
[2017-04-22] MEDS ORDERED: RIVAROXABAN 15 MG TABLET PO SCH (08:00)
[2017-04-22] MEDS: INSULIN LISPRO 1 UNIT/0.01 ML UNIT SQ SCH ×4 (08:03→21:34)
[2017-04-22] MEDS: INSULIN GLARGINE, HUMAN 1 UNIT/0.01 ML SQ SCH ×2 (08:03→21:35)
[2017-04-22] MEDS: oxyCODONE HCL 5 MG TABLET PO PRN ×2 (08:13→21:34)
[2017-04-22] MEDS: OXANDROLONE 2.5 MG TABLET PO SCH ×2 (08:13→21:33)
[2017-04-22] MEDS: CALCIUM ACETATE 667 MG CAPSULE PO SCH ×3 (08:13→17:53)
[2017-04-22] MEDS: FERROUS SULFATE 325 MG TABLET PO SCH ×4 (08:14→21:33)
[2017-04-22] MEDS: DOCUSATE SODIUM 100 MG CAPSULE PO SCH ×2 (08:14→21:33)
[2017-04-22] MEDS ORDERED: ALLOPURINOL 100 MG TABLET PO SCH (09:00)
[2017-04-22] MEDS ORDERED: MULTIVIT,THER IRON,CA,FA & MIN 1 TABLET PO SCH (09:00)
[2017-04-22] MEDS ORDERED: ATORVASTATIN 20 MG TABLET PO SCH (09:00)
[2017-04-22] MEDS ORDERED: amLODIPine 10 MG TABLET PO SCH (09:00)
--- NOTE | 2017-04-22 11:40 | Internal Med Progress Note ---
Medical - PN: Subj Patient information: Note initiated : 04/22/17 at 11:33 am Service Date, if different from initiated Date: [] Patient: Bart Pagan a 57 y/o M admitted on 04/18/17 for Debridement of Wound Right Foot. Chief Complaint: [] Interval history: Mr. Pagan is a 57 year old M who underwentright foot metatarsal amputation on March 07. Patient has been recovering well and has been following up with wound care. On Monday patient saw on care physician and underwent treatment along with 2 stitches. Over the weekend patient has noted increasing swelling and pain discharge. By Monday patient started experiencing shaking chills and drenching sweats long with excessive exhaustion. Today at work patient was unable to bear weight due to increasing pain and swelling along with associated fever. He notices bandage soaked in bloody discharge. he is afebrile 102. e was subsequently directed by Dr. Cameron's officeto ER. initial workup was significant for elevated white count along with fever and sepsis. hospitalist service was consulted after case was discussed with Dr. Maresor admission initiation of antibiotics and likely initiation of hyperbaric treatments. at the time of examination patient is alert oriented. He denies any active distress except for amputation stump pain and swelling. he endorses to fevers. Denies diarrhea dysuria headache photophobia skin rash or joint pain or weight loss. 04/19: Pt seen examined, febrile overnight, blood cx positive, on vancomycin, antibiotics changed from rocephin ./ clinda to zosyn. Patient on pn tylenol. HBOT rx done today and he is s/p wound debridement by Dr Mccauley. Plan to continue antibiotics for now. LIkely staph related infection, but given DM wound will cover from gram neg as well as anerobic infections. Patient otherwise is doing well, denies any acute complaints besdies pain in the leg and some mechanical back discomfort. his labs show worsening renal functino, nephrology following, IV fluid rate increased, and torsemide held. 04/20-patient ongoing hyperbaric treatment. Pansensitive MSSA. Continue Zosyn. Ongoing wound and osteomyelitis management by Dr. Cameron.post debridement day 1. Wound care physician plans to continue HBO reatment/wound VAC placement. Creatinine 4.9. renal issues managed by nephrology. Hemoglobin 7.3. Transfuse 2 units PRBC. Surveillance cultures pending. ok count 11.9. persistent bandemia. vernight persistently shaking chills fever. MAXIMUM TEMPERATURE 101. 9/1. Patient doing well. No overnight events and rested well. Patient however is anxious about treatment plan given underlying osteomyelitis he would rather want further amputation to remove infected bone. I explained the current treatment is being directed as per wound care physician's ecommendations including debridement/hBO/ IV antibiotics. nursing staff expressed concerns about elevated blood sugars. Patient restarted on 20 twice a day Lantus. Improved fevers shaking chills. Tolerating hyperbaric oxygen treatments well. MSSA on blood culture. Surveillance blood cultures negative so far. white count down to 11.7. BUN and 73 creatinine 4.7.off vancomycin. Continue Zosyn. 04/22: Patient seen examined, no acute overnight issues, patient sitting in the chair and is tolerating po diet well, He has a wound vac on by Dr Mccauley, plans for contiued HBOT for now. likely needs 10 treatments, next scheduled for monday and last treatment likely Monday. Continue with present antibiotics. labs stable. creat improving to 4.5, nephrology following continue to monitor. Pertinent ROS: Denies headache, dizziness Denies chest pain, palpitations Denies cough or shortness of breath Denies abdominal pain, nausea or vomiting. - Constitutional Vitals: Vital Signs Temp Pulse Resp BP Pulse Ox 97.8 F 64 18 143/68 94 04/22/17 08:00 04/22/17 06:47 04/22/17 08:00 04/22/17 08:00 04/22/17 08:00 Period Temp Pulse Resp BP Sys/Mancini Pulse Ox Last 24 Hr 97.8 F-99.4 F 64-70 16-18 143-150/68-84 91-94 Intake and Output 04/21/17 04/22/17 04/22/17 21:59 05:59 13:59 Intake Total 700 / 700 50 / 50 610 / 610 Output Total 400 / 400 200 / 200 250 / 250 Balance 300 / 300 -150 / -150 360 / 360 Weight 246 lb Intake & Output: Intake & Output 04/21/17 04/22/17 04/22/17 21:59 05:59 13:59 Intake Total 700 / 700 50 / 50 610 / 610 Output Total 400 / 400 200 / 200 250 / 250 Balance 300 / 300 -150 / -150 360 / 360 Weight 246 lb Intake: IV 50 / 50 50 / 50 50 / 50 Zosyn 2.25 gm In Dextrose 50 / 50 50 / 50 50 / 50 5% in Water 50 ml @ 100 mls/hr IV Q8H [facility] Rx#: [id number] Oral 650 / 650 560 / 560 Output: Void Amount 400 / 400 200 / 200 250 / 250 Other: Meal Dinner Breakfast Percent of Meal Consumed 75% 100% Feeding Ability Independent Independent # Voids 1 1 1 # Bowel Movements 1 Exam: Constitutional; Afebrile, cooperative, alert, not in distress. Eyes- No icterus, , No periorbital swelling Ears- Ext ear normal, hearing normal to conversation. Neck- Midline trachea, supple Respiratory system: Air Entry equal on both sides, No crackles or wheezing, no rhonchi. CVS- Rate rhythm regular, S1,S2 heard, no gallop, no rub. 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 Medical - PN: Obj Da - Labs CBC & Chem 7: 04/22/17 03:50 04/22/17 03:50 Labs: Abnormal Lab Results 04/22/17 04/22/17 04/21/17 03:50 03:50 13:21 WBC 11.9 H RBC 3.07 L Hgb 9.0 L Hct 26.8 L RDW 15.2 H Lymphocytes % 10 L Myelocytes % 1 H WBC Morphology Toxic Granulation RBC Morphology Abnorm A Anisocytosis RBC Fragments Few A Sodium 130 L Chloride 91 L Anion Gap BUN 68 H Creatinine 4.5 H Glucose 221 H Uric Acid 8.3 H Calcium Phosphorus GGT 88 H AST ALT 46 H Alkaline Phosphatase Lactate Dehydrogenase Albumin 2.7 L Globulin 4.2 H Albumin/Globulin Ratio 0.6 L Triglycerides 170 H Urine Protein >=500 A Urine Glucose (UA) >=500 A Urine Occult Blood 0.03 A Random Vancomycin 04/21/17 04/21/17 04/20/17 03:45 03:45 22:11 WBC 11.7 H RBC 3.00 L Hgb 8.7 L 8.5 L Hct 26.0 L 25.6 L RDW 15.6 H Lymphocytes % 8 L Myelocytes % WBC Morphology Abnorm A Toxic Granulation Few A RBC Morphology Abnorm A Anisocytosis RBC Fragments Few A Sodium 129 L Chloride 89 L Anion Gap 17.0 H BUN 73 H Creatinine 4.7 H Glucose 318 H Uric Acid 8.2 H Calcium Phosphorus 5.4 H GGT 91 H AST 56 H ALT 54 H Alkaline Phosphatase 120 H Lactate Dehydrogenase Albumin 2.8 L Globulin 4.0 H Albumin/Globulin Ratio 0.7 L Triglycerides 157 H Urine Protein Urine Glucose (UA) Urine Occult Blood Random Vancomycin 04/20/17 04/20/17 04/20/17 16:00 04:04 04:04 WBC 11.9 H RBC 2.50 L Hgb 7.3 L Hct 21.7 L RDW 15.9 H Lymphocytes % 10 L Myelocytes % WBC Morphology Abnorm A Toxic Granulation 1+ A RBC Morphology Abnorm A Anisocytosis 1+ A RBC Fragments Occ A Sodium 127 L Chloride 90 L Anion Gap BUN 62 H Creatinine 4.9 H Glucose 144 H Uric Acid 8.9 H Calcium 8.3 L Phosphorus 6.2 H* GGT 73 H AST ALT Alkaline Phosphatase Lactate Dehydrogenase 264 H Albumin 2.7 L Globulin 3.8 H Albumin/Globulin Ratio 0.7 L Triglycerides Urine Protein Urine Glucose (UA) Urine Occult Blood Random Vancomycin 13.0 H 04/19/17 14:01 WBC RBC Hgb Hct RDW Lymphocytes % Myelocytes % WBC Morphology Toxic Granulation RBC Morphology Anisocytosis RBC Fragments Sodium Chloride Anion Gap BUN Creatinine Glucose Uric Acid Calcium Phosphorus GGT AST ALT Alkaline Phosphatase Lactate Dehydrogenase Albumin Globulin Albumin/Globulin Ratio Triglycerides Urine Protein Urine Glucose (UA) Urine Occult Blood Random Vancomycin 11.0 H Meds: Medications Acetaminophen (Tylenol) 650 mg PO Q4-6HP PRN PRN Reason: PAIN/FEVER > 101 Allopurinol (Zyloprim) 200 mg PO QDAY [facility] Last Admin: 04/22/17 08:14 Dose: 200 mg Amlodipine Besylate (Norvasc) 10 mg PO QDAY [facility] Last Admin: 04/22/17 08:14 Dose: 10 mg Atorvastatin Calcium (Lipitor) 40 mg PO DAILY [facility] Last Admin: 04/22/17 08:26 Dose: 40 mg Calcium Acetate (Phoslo) 667 mg PO TIDCC [facility] Last Admin: 04/22/17 11:09 Dose: 667 mg Dextrose (Dextrose 50%) 0 ml IV UD PRN PRN Reason: Hypoglycemia Diagnostic Test (Pha) (Accu-Chek) 1 each FS ACHS [facility] Last Admin: 04/22/17 11:10 Dose: 1 each Docusate Sodium (Colace) 100 mg PO BID [facility] Last Admin: 04/22/17 08:14 Dose: 100 mg Ferrous Sulfate (Ferrous Sulfate) 325 mg PO CCHS [facility] Last Admin: 04/22/17 11:09 Dose: 325 mg Glucose (Insta-Glucose) 15 gm PO PRN PRN PRN Reason: Hypoglycemia Guaifenesin/Codeine Phosphate (Robitussin Ac) 10 ml PO Q4HP PRN PRN Reason: Cough Heparin Sodium (Porcine) (Heparin Flush) 2 ml IV Q12 [facility] Last Admin: 04/22/17 08:14 Dose: 2 ml Hydralazine HCl (Apresoline) 25 mg PO BIDP PRN PRN Reason: Hypertension Last Admin: 04/22/17 07:45 Dose: 25 mg Magnesium Sulfate (Magnesium Sulfate) 2 gm in 50 mls @ 50 mls/hr IV UD PRN PRN Reason: MG = or < 1.7 Acetaminophen (Ofirmev) 1,000 mg in 100 mls @ 200 mls/hr IV Q6HP PRN PRN Reason: PAIN/FEVER > 101 Piperacillin Sod/Tazobactam (Sod 2.25 gm/ Dextrose) 50 mls @ 100 mls/hr IV Q8H [facility] Last Infusion: 04/22/17 06:58 Dose: Infused Insulin Glargine (Lantus) 20 unit SQ BID [facility] Last Admin: 04/22/17 08:03 Dose: 20 unit Insulin Human Lispro (Humalog) 0 unit SQ [facility] PRN Reason: Protocol Last Admin: 04/22/17 08:03 Dose: 3 unit Iron Carb/Multivit/[place]/Folic Acid (Multivitamin W/Minerals) 1 tab PO DAILY [facility] Last Admin: 04/22/17 08:13 Dose: 1 tab Levothyroxine Sodium (Synthroid) 300 mcg PO QAMAC [facility] Last Admin: 04/22/17 08:04 Dose: 300 mcg Lorazepam (Ativan) 1 mg PO DAILYP PRN PRN Reason: ANXIETY/SEDATION Last Admin: 04/21/17 11:02 Dose: 1 mg Morphine Sulfate (Morphine) 2 mg IV TIDP PRN PRN Reason: Pain Ondansetron HCl (Zofran) 4 mg IV Q4-6HP PRN PRN Reason: Nausea And Vomiting Oxandrolone (Oxandrin) 5 mg PO BID [facility] Last Admin: 04/22/17 08:13 Dose: 5 mg Oxycodone HCl (Roxicodone) 5 mg PO Q4HP PRN PRN Reason: Pain Last Admin: 04/22/17 08:13 Dose: 5 mg Potassium Chloride (Klor-Con) 40 meq PO DAILYP PRN PRN Reason: K+ < 3.5 Prednisone (Prednisone) 10 mg PO [facility] Last Admin: 04/22/17 08:13 Dose: 10 mg Rivaroxaban (Xarelto) 15 mg PO [facility] Last Admin: 04/22/17 08:21 Dose: 15 mg Senna/Docusate Sodium (Senna Plus Tablet) 1 tab PO HS [facility] Last Admin: 04/21/17 20:40 Dose: 1 tab Sodium Chloride (Saline Flush) 10 ml IV Q8 [facility] Last Admin: 04/22/17 06:27 Dose: 10 ml Sodium Chloride (Saline Flush) 10 ml IV UD PRN PRN Reason: FLUSH Medical - PN: A/P - Time Spent With Patient Total time spent is greater than 50% in coordination of care (as documented) at patient's floor/unit and/or counseling patient: - Narrative A/P Narrative: A/P Infected Diabetic Ulcer: s/p debridement, on wound vac, Staph aureus, thomas sensitive, on IV zosyn for now, Vanco discontinued. (zosyn to provide broad coverage incluiding anaerobes which are not usualy isolated) Staph Bactyermia: On Zosyn contnue same, mssa, repeat cx is neg. LA on CKD: Creat is 4.5 today, improved from 4.7 yesterday, patient passing urine ad ernesto. tolerating po well. Osteomyelitis of heel: WIll need antibiotics for 6 weeks, total, Will need ID follow up as outpatient Sepsis resolved DM type 2 on insulin, uncontrolled :Glucose high, has been allowed to be on the higher side due to need for high values during HBOT< will increase dose to try and get glucose around 140-180. Increase lantus to 25 bid, continue sliding scale insulin afib: rate controlled, on anticoagulation H/o DVT on Rivaroxaban continue same Anemia: due to infection, ckd, and post op loss? s/p trasnfusion, hb stable now , monitor. Hypothyroidism: Continue levothyroxoine Full code xfer to med surg status. Medical - PN: Qual - VTE Deep Vein Thrombosis/Pulmonary Embolism Present on Admission: No
[2017-04-22] MEDS ORDERED: POTASSIUM CHLORIDE 20 MEQ PACKET PO PRN (12:39)
[2017-04-22] MEDS ORDERED: MAGNESIUM SULFATE 2 GM/50 ML BAG IV PRN (12:39)
[2017-04-22] MEDS ORDERED: ONDANSETRON 4 MG/2 ML VIAL IV PRN (12:39)
[2017-04-22] MEDS ORDERED: guaiFENesin/CODEINE 10 ML UDC PO PRN (12:39)
[2017-04-22] MEDS ORDERED: hydrALAZINE 25 MG TABLET PO PRN (12:39)
[2017-04-22] MEDS ORDERED: DEXTROSE 50% 50 ML VIAL IV PRN (12:39)
[2017-04-22] MEDS ORDERED: LORazepam 1 MG TABLET PO PRN (12:39)
[2017-04-22] MEDS ORDERED: ACETAMINOPHEN 325 MG TABLET PO PRN (12:39)
[2017-04-22] MEDS ORDERED: ACETAMINOPHEN 1,000 MG/100 ML BOTTLE IV PRN (12:39)
[2017-04-22] MEDS ORDERED: DEXTROSE 31 GM ORAL.SUSP PO PRN (12:39)
[2017-04-22] MEDS ORDERED: 0.9 % SODIUM CHLORIDE 10 ML SYRINGE IV PRN (12:39)
--- NOTE | 2017-04-22 12:59 | General Surgery Progress Note ---
Subjective Patient reports: no new complaints Narrative: Note initiated : 04/22/17 at 12:56 pm Service Date, if different from initiated Date: [] Patient: Bart Pagan 57 y/o M admitted on 04/18/17 for Debridement of Wound Right Foot. Chief Complaint: []Uneventful night. VAC working well. NO drainage. Dressing CDI Objective Temp Pulse Resp BP Pulse Ox 97.7 F 64 20 140/75 93 04/22/17 11:59 04/22/17 06:47 04/22/17 11:59 04/22/17 11:59 04/22/17 11:59 AVSS> No changes STONEY. L/E: VAC in place. Functioning well. Dressings CDI - Additional Data Intake & Output - Last 24 hours: Intake & Output 04/20/17 04/21/17 04/22/17 04/23/17 05:59 05:59 05:59 05:59 Intake Total 4465 / 4465 2912 / 2912 1726 / 1726 610 / 610 Output Total 1455 / 1455 1375 / 1375 1000 / 1000 250 / 250 Balance 3010 / 3010 1537 / 1537 726 / 726 360 / 360 Weight 241 lb 9.6 oz 247 lb 246 lb - Labs 04/22/17 03:50 04/22/17 03:50 Diabetes panel 04/22/17 Range/Units 03:50 Sodium 130 L (133-145) mmol/L Potassium 3.8 (3.3-5.1) mmol/L Chloride 91 L (96-108) mmol/L Carbon Dioxide 24 (22-30) mmol/L BUN 68 H (6-20) mg/dl Creatinine 4.5 H (0.7-1.2) mg/dl Glucose 221 H (70-105) mg/dL Calcium 8.9 (8.6-10.4) mg/dl AST 36 (0-37) U/l ALT 46 H (0-40) U/l Alkaline Phosphatase 110 (39-117) U/L Total Protein 6.9 (5.9-8.4) gm/dL Albumin 2.7 L (3.2-5.2) gm/dL Triglycerides 170 H (<150) mg/dl Calcium panel 04/22/17 Range/Units 03:50 Calcium 8.9 (8.6-10.4) mg/dl Phosphorus 4.5 (2.7-4.5) mg/dL Albumin 2.7 L (3.2-5.2) gm/dL Pituitary panel 04/22/17 Range/Units 03:50 Sodium 130 L (133-145) mmol/L Potassium 3.8 (3.3-5.1) mmol/L Chloride 91 L (96-108) mmol/L Carbon Dioxide 24 (22-30) mmol/L BUN 68 H (6-20) mg/dl Creatinine 4.5 H (0.7-1.2) mg/dl Glucose 221 H (70-105) mg/dL Calcium 8.9 (8.6-10.4) mg/dl Adrenal panel 04/22/17 Range/Units 03:50 Sodium 130 L (133-145) mmol/L Potassium 3.8 (3.3-5.1) mmol/L Chloride 91 L (96-108) mmol/L Carbon Dioxide 24 (22-30) mmol/L BUN 68 H (6-20) mg/dl Creatinine 4.5 H (0.7-1.2) mg/dl Glucose 221 H (70-105) mg/dL Calcium 8.9 (8.6-10.4) mg/dl Total Bilirubin 0.3 (0.0-1.0) mg/dL AST 36 (0-37) U/l ALT 46 H (0-40) U/l Alkaline Phosphatase 110 (39-117) U/L Total Protein 6.9 (5.9-8.4) gm/dL Albumin 2.7 L (3.2-5.2) gm/dL Assessment and Plan (1) Sepsis affecting skin Problem details: NECROTIZING skin and soft tissue infection. SEPSIS Uncontrolled diabetes, Anemia, CRF PLAN: HBOT Now later OR debridement / lavage and deep tissue biopsies and cultures. Status: Acute Assessment and plan: Progressing well from wound care point of view. Medical management by Hospitalist and CRF management by [employer] Teacher Will complete 10 HBOT total treatments, Later continue with wound care and monitor. Current Visit: Yes (2) Foot infection Status: Acute Current Visit: Yes (3) Severe sepsis Status: Acute Assessment and plan: Assessment: POD # 1. Progressing well. Hypothyroidism / Hypoproteinemia Pre albumin 14 / Anemia Hct 21 ( Dilutional ) Hypothyroidism , NIDDM A1c > 9 Wound and Blood cultures S. aureus Jones sensitive Plan ; Continue current treatment. HBOT and wound care. For dressing change and wound VAC placement on Monday04/21/2017. OK to get OOB and sit out in chair. Incentive spirometry q 2 hrly when awake, NWB Right foot and leg. OK to go to BR with FWW walker NWB Current Visit: Yes - Time Spent With Patient Total time spent is greater than 50% in coordination of care (as documented) at patient's floor/unit and/or counseling patient: Progressing well. Progress reviewed with Dr. Gray. Hospitalist Physician. Plan ; Continue current treatment. Anticipate discharge later next week, post HBOT. less than 15 minutes
--- NOTE | 2017-04-22 19:59 | Nephrology Progress Note ---
Subjective Patient information: Note initiated : 04/22/17 at 7:57 pm Service Date, if different from initiated Date: [] Patient: Bart Pagan 57 y/o M admitted on 04/18/17 for Debridement of Wound Right Foot. Chief Complaint: [] Principal diagnosis: sepsis Interval history: no overnight events afebrile, repeat culture negative s/p 2 units of PRBC transfusion with improvement in Hb to 9 s.creatinine slowly trending down no uremic signs no edema no urinary symptoms reported today will get "KEISHA" test done next week Pertinent ROS: as documented above Objective - Vital Signs Vital signs: Vital Signs Temp Pulse Resp BP BP Pulse Ox 04/22/17 16:00 97.7 F 20 160/77 94 04/22/17 11:59 97.7 F 20 140/75 93 04/22/17 08:00 97.8 F 18 143/68 94 04/22/17 06:47 64 16 93 04/22/17 04:00 99.4 F H 64 16 148/84 93 04/21/17 20:00 98.8 F 70 18 148/69 92 Intake and Output 04/22/17 04/22/17 04/22/17 05:59 13:59 21:59 Intake Total 50 / 50 1090 / 1090 45 / 45 Output Total 200 / 200 250 / 250 900 / 900 Balance -150 / -150 840 / 840 -855 / -855 Intake: IV 50 / 50 50 / 50 45 / 45 Zosyn 2.25 gm In Dextrose 50 / 50 50 / 50 45 / 45 5% in Water 50 ml @ 100 mls/hr IV Q8H [facility] Rx#: [id number] Oral 1040 / 1040 Output: Void Amount 200 / 200 250 / 250 900 / 900 Other: Meal Lunch Percent of Meal Consumed 100% Feeding Ability Independent # Voids 1 1 # Bowel Movements 1 Intake & Output: Intake & Output 04/22/17 04/22/17 04/22/17 05:59 13:59 21:59 Intake Total 50 / 50 1090 / 1090 45 / 45 Output Total 200 / 200 250 / 250 900 / 900 Balance -150 / -150 840 / 840 -855 / -855 Intake: IV 50 / 50 50 / 50 45 / 45 Zosyn 2.25 gm In Dextrose 50 / 50 50 / 50 45 / 45 5% in Water 50 ml @ 100 mls/hr IV Q8H [facility] Rx#: [id number] Oral 1040 / 1040 Output: Void Amount 200 / 200 250 / 250 900 / 900 Other: Meal Lunch Percent of Meal Consumed 100% Feeding Ability Independent # Voids 1 1 # Bowel Movements 1 - General Appearance General appearance: appears started age, obese EENT: mucous membranes moist Neck: no JVD Respiratory: clear Cardiology: no rub, no edema, normal S1, normal S2 Gastrointestinal: no tenderness, no masses Integumentary: no rash, warm and dry Neurologic: no focal deficit, alert and oriented x3 Musculoskeletal: no erythema, no cyanosis Psychiatric: mood/affect appropriate - Lab 04/22/17 03:50 04/22/17 03:50 Most recent lab results Calcium 8.9 mg/dl (8.6-10.4) 04/22/17 03:50 Phosphorus 4.5 mg/dL (2.7-4.5) 04/22/17 03:50 Magnesium 2.4 mg/dL (1.6-2.5) 04/22/17 03:50 Assessment and Plan (1) Acute on chronic renal failure s.creatinine is trending down, 4.5 today, LA in the setting of sepsis,MSSA bacteremia, uncontrolled DM and severe anemia no hyperkalemia, darren cidosis phos improved to 4.6, corrected calcium normal Hb improved to 9.0 with prbc transfusion mild hyponatremia improving BP is trending up labs discussed with the patient no indication for dialysis will hope for renal recovery will start amlodipine 5mg po daily as BP is trending up continue to hold diuretics, losartan monitor I/O, renal function, daily weight dose meds per egfr avoid nephrotoxic medications will follow along Status: Acute
[2017-04-22] MEDS ORDERED: INSULIN GLARGINE, HUMAN 1 UNIT/0.01 ML SQ SCH (21:00)
[2017-04-22] MEDS: SENNOSIDES/DOCUSATE SODIUM 1 TAB TABLET PO SCH (21:34)
[2017-04-23 06:06] LABS: Mean Cell Volume 87.8 fL (80.0-100.0); Mean Corpuscular HGB Conc 32.6 g/dL (31.0-36.0); Mean Corpuscular Hemoglobin 28.6 pg (26.0-34.0); Platelet Count 395 K/mcL (140-440); RBC 3.15 M/mcL (4.50-5.90); Red Cell Distribution Width 15.8 % (11.5-14.5)
[2017-04-23] MEDS: PIPERACILLIN SODIUM/TAZOBACTAM 2.25 GM in DEXTROSE 5% IN WATER 50 ML IV SCH ×3 (06:17→22:29)
[2017-04-23] MEDS: 0.9 % SODIUM CHLORIDE 10 ML SYRINGE IV SCH ×3 (06:17→22:32)
[2017-04-23 06:46] LABS: ALT/SGPT 33 U/l (0-40); Albumin 2.9 gm/dL (3.2-5.2); Albumin/Globulin Ratio 0.7 (1.0-2.3); Alkaline Phosphatase 88 U/L (39-117); Bilirubin,Direct < 0.2 mg/dL (0.0-0.3); Blood Urea Nitrogen 73 mg/dl (6-20); Gamma Glutamyl Transpeptidase 74 U/L (8-61); Magnesium 2.7 mg/dL (1.6-2.5); Uric Acid 8.9 mg/dL (2.5-8.0)
[2017-04-23 07:46] LABS: Anisocytosis FEW (NONE SEEN); Band Neutrophils % 7 % (0-10); Eosinophils % (Manual) 3 % (0-7); Lymphocytes % 13 % (15-49); Monocytes % (Manual) 4 % (1-12); Platelet Estimate NORMAL (NORMAL); RBC Morphology ABNORM (NORMAL); Segmented Neutrophils % 73 % (38-78)
[2017-04-23] MEDS: LEVOTHYROXINE 150 MCG TABLET PO SCH (08:04)
[2017-04-23] MEDS: INSULIN LISPRO 1 UNIT/0.01 ML UNIT SQ SCH ×4 (08:04→20:24)
[2017-04-23] MEDS: OXANDROLONE 2.5 MG TABLET PO SCH ×2 (08:42→20:34)
[2017-04-23] MEDS: CALCIUM ACETATE 667 MG CAPSULE PO SCH ×3 (08:42→17:13)
[2017-04-23] MEDS: amLODIPine 10 MG TABLET PO SCH (08:42)
[2017-04-23] MEDS: MULTIVIT,THER IRON,CA,FA & MIN 1 TABLET PO SCH (08:42)
[2017-04-23] MEDS: FERROUS SULFATE 325 MG TABLET PO SCH ×4 (08:42→20:23)
[2017-04-23] MEDS: ALLOPURINOL 100 MG TABLET PO SCH (08:43)
[2017-04-23] MEDS: ATORVASTATIN 20 MG TABLET PO SCH (08:43)
[2017-04-23] MEDS: predniSONE 10 MG TABLET PO SCH (08:43)
[2017-04-23] MEDS: DOCUSATE SODIUM 100 MG CAPSULE PO SCH ×2 (08:43→20:23)
[2017-04-23] MEDS: RIVAROXABAN 15 MG TABLET PO SCH (08:44)
[2017-04-23] MEDS ORDERED: 0.9 % SODIUM CHLORIDE 1,000 ML IV SCH (08:45)
[2017-04-23] MEDS: INSULIN GLARGINE, HUMAN 1 UNIT/0.01 ML SQ SCH ×2 (08:45→20:25)
[2017-04-23] MEDS: oxyCODONE HCL 5 MG TABLET PO PRN ×2 (12:02→20:23)
--- NOTE | 2017-04-23 13:55 | Internal Med Progress Note ---
Medical - PN: Subj Patient information: Note initiated : 04/23/17 at 1:51 pm Service Date, if different from initiated Date: [] Patient: Bart Pagan a 57 y/o M admitted on 04/18/17 for Debridement of Wound Right Foot. Chief Complaint: [] Interval history: Mr. Pagan is a 57 year old M who underwentright foot metatarsal amputation on March 07. Patient has been recovering well and has been following up with wound care. On Monday patient saw on care physician and underwent treatment along with 2 stitches. Over the weekend patient has noted increasing swelling and pain discharge. By Monday patient started experiencing shaking chills and drenching sweats long with excessive exhaustion. Today at work patient was unable to bear weight due to increasing pain and swelling along with associated fever. He notices bandage soaked in bloody discharge. he is afebrile 102. e was subsequently directed by Dr. Cameron's officeto ER. initial workup was significant for elevated white count along with fever and sepsis. hospitalist service was consulted after case was discussed with Dr. Maresor admission initiation of antibiotics and likely initiation of hyperbaric treatments. at the time of examination patient is alert oriented. He denies any active distress except for amputation stump pain and swelling. he endorses to fevers. Denies diarrhea dysuria headache photophobia skin rash or joint pain or weight loss. 04/19: Pt seen examined, febrile overnight, blood cx positive, on vancomycin, antibiotics changed from rocephin ./ clinda to zosyn. Patient on pn tylenol. HBOT rx done today and he is s/p wound debridement by Dr Mccauley. Plan to continue antibiotics for now. LIkely staph related infection, but given DM wound will cover from gram neg as well as anerobic infections. Patient otherwise is doing well, denies any acute complaints besdies pain in the leg and some mechanical back discomfort. his labs show worsening renal functino, nephrology following, IV fluid rate increased, and torsemide held. 04/20-patient ongoing hyperbaric treatment. Pansensitive MSSA. Continue Zosyn. Ongoing wound and osteomyelitis management by Dr. Cameron.post debridement day 1. Wound care physician plans to continue HBO reatment/wound VAC placement. Creatinine 4.9. renal issues managed by nephrology. Hemoglobin 7.3. Transfuse 2 units PRBC. Surveillance cultures pending. ok count 11.9. persistent bandemia. vernight persistently shaking chills fever. MAXIMUM TEMPERATURE 101. 9/1. Patient doing well. No overnight events and rested well. Patient however is anxious about treatment plan given underlying osteomyelitis he would rather want further amputation to remove infected bone. I explained the current treatment is being directed as per wound care physician's ecommendations including debridement/hBO/ IV antibiotics. nursing staff expressed concerns about elevated blood sugars. Patient restarted on 20 twice a day Lantus. Improved fevers shaking chills. Tolerating hyperbaric oxygen treatments well. MSSA on blood culture. Surveillance blood cultures negative so far. white count down to 11.7. BUN and 73 creatinine 4.7.off vancomycin. Continue Zosyn. 04/22: Patient seen examined, no acute overnight issues, patient sitting in the chair and is tolerating po diet well, He has a wound vac on by Dr Mccauley, plans for contiued HBOT for now. likely needs 10 treatments, next scheduled for monday and last treatment likely Monday. Continue with present antibiotics. labs stable. creat improving to 4.5, nephrology following continue to monitor. 04/23: Pt seen examined, still has low grade leucocytosis but no other symptoms, etiology steroids? He remains on antibiotics as per his microbiology. Lab show slight worsening in creatinine to 4.7 today. clinically not volume overloaded, will give 1 L normal Saline and reassess in AM. continue IV Abx, Wound care plan as per wound care surgery. Pertinent ROS: Denies headache, dizziness Denies chest pain, palpitations Denies cough or shortness of breath Denies abdominal pain, nausea or vomiting. - Constitutional Vitals: Vital Signs Temp Pulse Resp BP Pulse Ox 98.0 F 53 L 20 149/67 96 04/23/17 12:00 04/23/17 04:08 04/23/17 12:00 04/23/17 12:00 04/23/17 12:00 Period Temp Pulse Resp BP Sys/Mancini Pulse Ox Last 24 Hr 97.0 F-98.0 F 50-53 16-20 133-174/57-77 94-98 Intake and Output 04/22/17 04/23/17 04/23/17 21:59 05:59 13:59 Intake Total 45 / 45 450 / 450 950 / 950 Output Total 900 / 900 225 / 225 175 / 175 Balance -855 / -855 225 / 225 775 / 775 Weight 246 lb 247 lb Intake & Output: Intake & Output 04/22/17 04/23/17 04/23/17 21:59 05:59 13:59 Intake Total 45 / 45 450 / 450 950 / 950 Output Total 900 / 900 225 / 225 175 / 175 Balance -855 / -855 225 / 225 775 / 775 Weight 246 lb 247 lb Intake: IV 45 / 45 50 / 50 50 / 50 Zosyn 2.25 gm In Dextrose 45 / 45 50 / 50 50 / 50 5% in Water 50 ml @ 100 mls/hr IV Q8H [facility] Rx#: [id number] Oral 400 / 400 900 / 900 Output: Void Amount 900 / 900 225 / 225 175 / 175 Other: Meal Breakfast Percent of Meal Consumed 100% Feeding Ability Assist with Tray Set Up # Voids 1 # Bowel Movements 1 Exam: Constitutional; Afebrile, cooperative, alert, not in distress. Eyes- No icterus, , No periorbital swelling Ears- Ext ear normal, hearing normal to conversation. Neck- Midline trachea, supple Respiratory system: Air Entry equal on both sides, No crackles or wheezing, no rhonchi. CVS- Rate rhythm regular, S1,S2 heard, no gallop, no rub. Abdomen- Soft nontender abdomen, no organomegaly, no tenderness, no guarding or rigidity, [employer]- AOOx3, moving all extremities, no gross focal deficit noted. Medical - PN: Obj Da - Labs CBC & Chem 7: 04/23/17 03:50 04/23/17 03:50 Labs: Abnormal Lab Results 04/23/17 04/23/17 04/22/17 03:50 03:50 03:50 WBC 11.4 H RBC 3.15 L Hgb 9.0 L Hct 27.6 L RDW 15.8 H Lymphocytes % 13 L Myelocytes % WBC Morphology Toxic Granulation RBC Morphology Abnorm A Anisocytosis Few A RBC Fragments Sodium 131 L 130 L Chloride 93 L 91 L Anion Gap BUN 73 H 68 H Creatinine 4.8 H 4.5 H Glucose 213 H 221 H Uric Acid 8.9 H 8.3 H Phosphorus Magnesium 2.7 H GGT 74 H 88 H AST ALT 46 H Alkaline Phosphatase Albumin 2.9 L 2.7 L Globulin 3.9 H 4.2 H Albumin/Globulin Ratio 0.7 L 0.6 L Triglycerides 169 H 170 H Urine Protein Urine Glucose (UA) Urine Occult Blood Random Vancomycin 04/22/17 04/21/17 04/21/17 03:50 13:21 03:45 WBC 11.9 H RBC 3.07 L Hgb 9.0 L Hct 26.8 L RDW 15.2 H Lymphocytes % 10 L Myelocytes % 1 H WBC Morphology Toxic Granulation RBC Morphology Abnorm A Anisocytosis RBC Fragments Few A Sodium 129 L Chloride 89 L Anion Gap 17.0 H BUN 73 H Creatinine 4.7 H Glucose 318 H Uric Acid 8.2 H Phosphorus 5.4 H Magnesium GGT 91 H AST 56 H ALT 54 H Alkaline Phosphatase 120 H Albumin 2.8 L Globulin 4.0 H Albumin/Globulin Ratio 0.7 L Triglycerides 157 H Urine Protein >=500 A Urine Glucose (UA) >=500 A Urine Occult Blood 0.03 A Random Vancomycin 04/21/17 04/20/17 04/20/17 03:45 22:11 16:00 WBC 11.7 H RBC 3.00 L Hgb 8.7 L 8.5 L Hct 26.0 L 25.6 L RDW 15.6 H Lymphocytes % 8 L Myelocytes % WBC Morphology Abnorm A Toxic Granulation Few A RBC Morphology Abnorm A Anisocytosis RBC Fragments Few A Sodium Chloride Anion Gap BUN Creatinine Glucose Uric Acid Phosphorus Magnesium GGT AST ALT Alkaline Phosphatase Albumin Globulin Albumin/Globulin Ratio Triglycerides Urine Protein Urine Glucose (UA) Urine Occult Blood Random Vancomycin 13.0 H Meds: Medications Acetaminophen (Tylenol) 650 mg PO Q4-6HP PRN PRN Reason: PAIN/FEVER > 101 Allopurinol (Zyloprim) 200 mg PO QDAY [facility] Last Admin: 04/23/17 08:43 Dose: 200 mg Amlodipine Besylate (Norvasc) 10 mg PO QDAY [facility] Last Admin: 04/23/17 08:42 Dose: 10 mg Atorvastatin Calcium (Lipitor) 40 mg PO DAILY [facility] Last Admin: 04/23/17 08:43 Dose: 40 mg Calcium Acetate (Phoslo) 667 mg PO TIDCC [facility] Last Admin: 04/23/17 12:02 Dose: 667 mg Dextrose (Dextrose 50%) 0 ml IV UD PRN PRN Reason: Hypoglycemia Diagnostic Test (Pha) (Accu-Chek) 1 each FS ACHS [facility] Last Admin: 04/23/17 11:36 Dose: 1 each Docusate Sodium (Colace) 100 mg PO BID [facility] Last Admin: 04/23/17 08:43 Dose: 100 mg Ferrous Sulfate (Ferrous Sulfate) 325 mg PO CCHS [facility] Last Admin: 04/23/17 12:03 Dose: 325 mg Glucose (Insta-Glucose) 15 gm PO PRN PRN PRN Reason: Hypoglycemia Guaifenesin/Codeine Phosphate (Robitussin Ac) 10 ml PO Q4HP PRN PRN Reason: Cough Heparin Sodium (Porcine) (Heparin Flush) 2 ml IV Q12 [facility] Last Admin: 04/23/17 08:44 Dose: 2 ml Hydralazine HCl (Apresoline) 25 mg PO BIDP PRN PRN Reason: Hypertension Magnesium Sulfate (Magnesium Sulfate) 2 gm in 50 mls @ 50 mls/hr IV UD PRN PRN Reason: MG = or < 1.7 Acetaminophen (Ofirmev) 1,000 mg in 100 mls @ 200 mls/hr IV Q6HP PRN PRN Reason: PAIN/FEVER > 101 Piperacillin Sod/Tazobactam (Sod 2.25 gm/ Dextrose) 50 mls @ 100 mls/hr IV Q8H [facility] Last Infusion: 04/23/17 06:45 Dose: Infused Sodium Chloride (Sodium Chloride 0.9%) 1,000 mls @ 125 mls/hr IV .Q8H [facility] Stop: 04/23/17 16:44 Last Admin: 04/23/17 08:58 Dose: 125 mls/hr Insulin Glargine (Lantus) 25 unit SQ BID [facility] Last Admin: 04/23/17 08:45 Dose: 25 unit Insulin Human Lispro (Humalog) 0 unit SQ [facility] PRN Reason: Protocol Last Admin: 04/23/17 12:01 Dose: 4 unit Iron Carb/Multivit/Corry/Folic Acid (Multivitamin W/Minerals) 1 tab PO DAILY [facility] Last Admin: 04/23/17 08:42 Dose: 1 tab Levothyroxine Sodium (Synthroid) 300 mcg PO QAMAC [facility] Last Admin: 04/23/17 08:04 Dose: 300 mcg Lorazepam (Ativan) 1 mg PO DAILYP PRN PRN Reason: ANXIETY/SEDATION Morphine Sulfate (Morphine) 2 mg IV TIDP PRN PRN Reason: Pain Ondansetron HCl (Zofran) 4 mg IV Q4-6HP PRN PRN Reason: Nausea And Vomiting Oxandrolone (Oxandrin) 5 mg PO BID [facility] Last Admin: 04/23/17 08:42 Dose: 5 mg Oxycodone HCl (Roxicodone) 5 mg PO Q4HP PRN PRN Reason: Pain Last Admin: 04/23/17 12:02 Dose: 5 mg Potassium Chloride (Klor-Con) 40 meq PO DAILYP PRN PRN Reason: K+ < 3.5 Prednisone (Prednisone) 10 mg PO [facility] Last Admin: 04/23/17 08:43 Dose: 10 mg Rivaroxaban (Xarelto) 15 mg PO [facility] Last Admin: 04/23/17 08:44 Dose: 15 mg Senna/Docusate Sodium (Senna Plus Tablet) 1 tab PO [facility] Last Admin: 04/22/17 21:34 Dose: Not Given Sodium Chloride (Saline Flush) 10 ml IV UD PRN PRN Reason: FLUSH Sodium Chloride (Saline Flush) 10 ml IV Q8 [facility] Last Admin: 04/23/17 06:17 Dose: 10 ml Medical - PN: A/P - Time Spent With Patient Total time spent is greater than 50% in coordination of care (as documented) at patient's floor/unit and/or counseling patient: - Narrative A/P Narrative: A/P Infected Diabetic Ulcer: s/p debridement, on wound vac, Staph aureus, thomas sensitive, on IV zosyn for now, Vanco discontinued. (zosyn to provide broad coverage including anaerobes which are not usualy isolated) Staph Bacteremia: On Zosyn contnue same, mssa, repeat cx is neg. LA on CKD: Creat is 4.7 today, slight worsening, IV saline today, clinically not volume overloaded. Hold torsemide, Nephrology is following. Osteomyelitis of heel: WIll need antibiotics for 6 weeks, total, Will need ID follow up as outpatient Sepsis resolved, but pt has persistant leucocytosis, likely from steroid use. DM type 2 on insulin, uncontrolled :Glucose high, has been allowed to be on the higher side due to need for high values during HBOT< glucose levels better on lantus 25units bid. afib: rate controlled, on anticoagulation H/o DVT on Rivaroxaban continue same Anemia: due to infection, ckd, and post op loss? s/p trasnfusion, hb stable now , monitor. Hypothyroidism: Continue levothyroxoine Full code Medical - PN: Qual - VTE Deep Vein Thrombosis/Pulmonary Embolism Present on Admission: No
[2017-04-23] MEDS: SENNOSIDES/DOCUSATE SODIUM 1 TAB TABLET PO SCH (20:23)
[2017-04-24] MEDS: PIPERACILLIN SODIUM/TAZOBACTAM 2.25 GM in DEXTROSE 5% IN WATER 50 ML IV SCH (05:31)
[2017-04-24] MEDS: 0.9 % SODIUM CHLORIDE 10 ML SYRINGE IV SCH ×3 (05:32→21:44)
[2017-04-24 06:38] LABS: Basophils # (Auto) 0.1 K/mcL (0.0-0.3); Basophils % (Auto) 0.5 % (0.0-2.0); Eosinophils # (Auto) 0.3 K/mcL (0.0-0.7); Granulocytes % (Auto) 81.9 % (38.0-78.0); Lymphocytes # (Auto) 1.3 K/mcL (1.5-4.8); Lymphocytes % (Auto) 9.5 % (15.5-49.0); Mean Cell Volume 87.7 fL (80.0-100.0); Mean Corpuscular HGB Conc 33.2 g/dL (31.0-36.0); Mean Corpuscular Hemoglobin 29.1 pg (26.0-34.0); Monocytes # (Auto) 0.8 K/mcL (0.1-0.9); Monocytes % (Auto) 6.1 % (1.0-12.0); Platelet Count 415 K/mcL (140-440); RBC 3.07 M/mcL (4.50-5.90); Red Cell Distribution Width 15.2 % (11.5-14.5)
[2017-04-24] MEDS: LEVOTHYROXINE 150 MCG TABLET PO SCH (06:59)
[2017-04-24 07:53] LABS: ALT/SGPT 26 U/l (0-40); Albumin 2.8 gm/dL (3.2-5.2); Albumin/Globulin Ratio 0.7 (1.0-2.3); Alkaline Phosphatase 80 U/L (39-117); Blood Urea Nitrogen 81 mg/dl (6-20)
--- NOTE | 2017-04-24 08:11 | XRay Report ---
CLINICAL INFORMATION: Increasing white blood cell count COMPARISON: 04/21/2017 FINDINGS: PICC line tip now in satisfactory position in the SVC/right atrial junction. The heart is mildly enlarged, but unchanged. Mediastinum and pulmonary vessels are normal. Minor right basilar atelectasis noted. No effusions IMPRESSION: Minor right basilar atelectasis. No definite infiltrates. PICC line now in satisfactory position Interpreted and Authenticated by: Nakul Huynh 04/24/17
[2017-04-24 09:25] LABS: Appearance,Urine CLOUDY; Bacteria,Urine 0 /hpf (0); Bilirubin,Urine NEG (NEG); Color,Urine DARK YELLOW; Glucose,Urine (UA) >=500 mg/dL (NEG); Leukocyte Esterase,Urine NEG /uL (NEG); Mucus,Urine FEW /hpf (0); Nitrate,Urine NEG (NEG); Protein,Urine >=500 mg/dL (NEG); Specific Gravity,Urine 1.016 (1.000-1.035); Urine Blood >=1.0 mg/dL (<0.03); Urine Hyaline Cast 8 /lpf (0-2); Urine RBC > 182 /hpf (0-1); Urine Squamous Epithelial Cell 3 /hpf (0-4); Urine WBC 14 /hpf (0-4); Urobilinogen,Urine NEG (NEG)
[2017-04-24] MEDS: INSULIN GLARGINE, HUMAN 1 UNIT/0.01 ML SQ SCH ×2 (10:42→21:42)
[2017-04-24] MEDS: ATORVASTATIN 20 MG TABLET PO SCH (10:43)
[2017-04-24] MEDS: amLODIPine 10 MG TABLET PO SCH (10:43)
[2017-04-24] MEDS: CALCIUM ACETATE 667 MG CAPSULE PO SCH ×3 (10:43→17:28)
[2017-04-24] MEDS: DOCUSATE SODIUM 100 MG CAPSULE PO SCH ×2 (10:44→21:41)
[2017-04-24] MEDS: ALLOPURINOL 100 MG TABLET PO SCH (10:44)
[2017-04-24] MEDS: MULTIVIT,THER IRON,CA,FA & MIN 1 TABLET PO SCH (10:44)
[2017-04-24] MEDS: INSULIN LISPRO 1 UNIT/0.01 ML UNIT SQ SCH ×4 (10:44→21:41)
[2017-04-24] MEDS: FERROUS SULFATE 325 MG TABLET PO SCH ×4 (10:44→21:41)
[2017-04-24] MEDS: predniSONE 10 MG TABLET PO SCH (10:44)
[2017-04-24] MEDS: RIVAROXABAN 15 MG TABLET PO SCH (11:22)
--- NOTE | 2017-04-24 11:42 | General Surgery Progress Note ---
Subjective Patient reports: other Narrative: Note initiated : 04/24/17 at 11:33 am Service Date, if different from initiated Date: [] Patient: Bart Pagan 57 y/o M admitted on 04/18/17 for Debridement of Wound Right Foot. Chief Complaint: [] Patient slept well. C/O some back ache due to positioning in bed. Tolerated diet. ANUJ . Passing urine in small amounts. NO hematuria Objective Temp Pulse Resp BP Pulse Ox 97.6 F 44 L 16 153/89 99 04/24/17 10:37 04/24/17 07:46 04/24/17 10:37 04/24/17 10:37 04/24/17 10:37 AVSS Lungs CTA, with diminished air entry at bases. L/E. Wound covered with minimal slough and over 70 % granulating tissue. Periwound inflammatory changes are stable. There is STILL edema of wound base, and X Ray showing osteo, WILL order MRI Labs : Elevated Creatinine 5.7 and Sed Rate, HCT 26 CXR Aerated lung gary bilaterally with basilar atelectasis - Additional Data Intake & Output - Last 24 hours: Intake & Output 04/22/17 04/23/17 04/24/17 04/25/17 05:59 05:59 05:59 05:59 Intake Total 1726 / 1726 1585 / 1585 2770 / 2770 300 / 300 Output Total 1000 / 1000 1375 / 1375 175 / 175 225 / 225 Balance 726 / 726 210 / 210 2595 / 2595 75 / 75 Weight 246 lb 247 lb 244 lb 8 oz - Labs 04/24/17 05:40 04/24/17 05:40 Diabetes panel 04/24/17 Range/Units 05:40 Sodium 130 L (133-145) mmol/L Potassium 4.0 (3.3-5.1) mmol/L Chloride 92 L (96-108) mmol/L Carbon Dioxide 24 (22-30) mmol/L BUN 81 H (6-20) mg/dl Creatinine 5.7 H* (0.7-1.2) mg/dl Glucose 210 H (70-105) mg/dL Calcium 8.6 (8.6-10.4) mg/dl AST 17 (0-37) U/l ALT 26 (0-40) U/l Alkaline Phosphatase 80 (39-117) U/L Total Protein 6.8 (5.9-8.4) gm/dL Albumin 2.8 L (3.2-5.2) gm/dL Calcium panel 04/24/17 Range/Units 05:40 Calcium 8.6 (8.6-10.4) mg/dl Albumin 2.8 L (3.2-5.2) gm/dL Pituitary panel 04/24/17 Range/Units 05:40 Sodium 130 L (133-145) mmol/L Potassium 4.0 (3.3-5.1) mmol/L Chloride 92 L (96-108) mmol/L Carbon Dioxide 24 (22-30) mmol/L BUN 81 H (6-20) mg/dl Creatinine 5.7 H* (0.7-1.2) mg/dl Glucose 210 H (70-105) mg/dL Calcium 8.6 (8.6-10.4) mg/dl Adrenal panel 04/24/17 Range/Units 05:40 Sodium 130 L (133-145) mmol/L Potassium 4.0 (3.3-5.1) mmol/L Chloride 92 L (96-108) mmol/L Carbon Dioxide 24 (22-30) mmol/L BUN 81 H (6-20) mg/dl Creatinine 5.7 H* (0.7-1.2) mg/dl Glucose 210 H (70-105) mg/dL Calcium 8.6 (8.6-10.4) mg/dl Total Bilirubin 0.2 (0.0-1.0) mg/dL AST 17 (0-37) U/l ALT 26 (0-40) U/l Alkaline Phosphatase 80 (39-117) U/L Total Protein 6.8 (5.9-8.4) gm/dL Albumin 2.8 L (3.2-5.2) gm/dL Assessment and Plan (1) Sepsis affecting skin Problem details: NECROTIZING skin and soft tissue infection. SEPSIS Uncontrolled diabetes, Anemia, CRF PLAN: HBOT Now later OR debridement / lavage and deep tissue biopsies and cultures. Status: Acute Assessment and plan: Progressing well from wound care point of view. Medical management by Hospitalist and CRF management by Ladle Liner Will complete 10 HBOT total treatments, Later continue with wound care and monitor. Current Visit: Yes (2) Foot infection Status: Acute Current Visit: Yes (3) Severe sepsis Status: Acute Assessment and plan: Assessment: POD # 1. Progressing well. Hypothyroidism / Hypoproteinemia Pre albumin 14 / Anemia Hct 21 ( Dilutional ) Hypothyroidism , NIDDM A1c > 9 Wound and Blood cultures S. aureus Jones sensitive Plan ; Continue current treatment. HBOT and wound care. For dressing change and wound VAC placement on Monday04/21/2017. OK to get OOB and sit out in chair. Incentive spirometry q 2 hrly when awake, NWB Right foot and leg. OK to go to BR with FWW walker NWB Current Visit: Yes - Narrative A/P Narrative: Saw patient on floor and in wound center for HBO treatmetn. PLAN: See wound care orders. Will hold off VAC. VASHE and MIST treatments WITHOUT GCB BID Await MRI foot and ankle RIGHT. Reassess later for ?? Ortho consult Dr. BANKS - Time Spent With Patient Total time spent is greater than 50% in coordination of care (as documented) at patient's floor/unit and/or counseling patient: 15 - 24 minutes
[2017-04-24] MEDS: oxyCODONE HCL 5 MG TABLET PO PRN ×2 (12:04→21:45)
[2017-04-24] MEDS ORDERED: 0.9 % SODIUM CHLORIDE 1,000 ML IV SCH ×2 (13:00→17:21)
--- NOTE | 2017-04-24 13:05 | Nephrology Progress Note ---
Subjective Patient information: Note initiated : 04/24/17 at 12:59 pm Service Date, if different from initiated Date: [] Patient: Bart Pagan 57 y/o M admitted on 04/18/17 for Debridement of Wound Right Foot. Chief Complaint: [] Principal diagnosis: sepsis Interval history: renal function significantly worse this am non oliguric (all urine output's not recorded) does not have dysuria or burning urination no fever wbc count trending up still patient also c/o poor appetite, no nausea, no other uremic symptoms no LE edema no SOB Denies CP Pertinent ROS: as noted above Objective - Vital Signs Vital signs: Vital Signs Temp Pulse Pulse Resp BP Pulse Ox 04/24/17 10:37 97.6 F 16 153/89 99 04/24/17 07:46 44 L 96 04/24/17 07:09 97.8 F 47 L 20 129/73 96 04/24/17 04:00 97.8 F 18 182/79 98 04/23/17 23:17 98.1 F 45 L 16 158/70 96 04/23/17 20:17 98.3 F 46 L 18 149/74 93 04/23/17 15:41 97.3 F 20 142/66 96 Intake and Output 04/23/17 04/24/17 04/24/17 21:59 05:59 13:59 Intake Total 1470 / 1470 350 / 350 300 / 300 Output Total 225 / 225 Balance 1470 / 1470 350 / 350 75 / 75 Intake: IV 50 / 50 50 / 50 Zosyn 2.25 gm In Dextrose 50 / 50 50 / 50 5% in Water 50 ml @ 100 mls/hr IV Q8H [facility] Rx#: [id number] Oral 1420 / 1420 300 / 300 300 / 300 Output: Void Amount 225 / 225 Other: Meal Dinner Percent of Meal Consumed 100% Feeding Ability Assist with Tray Set Up # Voids 1 Weight 244 lb 8 oz Intake & Output: Intake & Output 04/23/17 04/24/17 04/24/17 21:59 05:59 13:59 Intake Total 1470 / 1470 350 / 350 300 / 300 Output Total 225 / 225 Balance 1470 / 1470 350 / 350 75 / 75 Weight 244 lb 8 oz Intake: IV 50 / 50 50 / 50 Zosyn 2.25 gm In Dextrose 50 / 50 50 / 50 5% in Water 50 ml @ 100 mls/hr IV Q8H [facility] Rx#: [id number] Oral 1420 / 1420 300 / 300 300 / 300 Output: Void Amount 225 / 225 Other: Meal Dinner Percent of Meal Consumed 100% Feeding Ability Assist with Tray Set Up # Voids 1 - General Appearance General appearance: appears started age, obese EENT: mucous membranes moist Neck: no JVD Respiratory: clear Cardiology: no rub, no edema, normal S1, normal S2 Gastrointestinal: no tenderness, no guarding Integumentary: no rash, warm and dry Neurologic: no asterixis, alert and oriented x3 Musculoskeletal: no cyanosis, no clubbing Psychiatric: mood/affect appropriate - Lab 04/24/17 05:40 04/24/17 05:40 Most recent lab results Calcium 8.6 mg/dl (8.6-10.4) 04/24/17 05:40 Phosphorus 4.2 mg/dL (2.7-4.5) 04/23/17 03:50 Magnesium 2.7 mg/dL (1.6-2.5) H 04/23/17 03:50 Assessment and Plan (1) Acute on chronic renal failure renal function getting worse again, s.creatinine is upto 5.7, BUN is 81 non oliguric with early uremic symptoms UA with RBC and WBC, urine eos pending, does show hyaline casts No hyperkalemia or acidosis Hb still at 8.9 BP stable on amlodipine and prn hydralazine sepsis: stable but unclear why white count is trending up, ? from UTI vs issues with LE wound labs discussed with the pt no urgent indication for dialysis but if s.creatinine continues to trend up will go ahead and get HD started with TCC placement, discussed with the pt will follow urine eosinophils, discussed with hospitalist, may consider changing antibiotics will follow renal US given some hyaline casts will start IV normal saline at 75cc/hour will hold androgens given decline in renal function please dose meds to egfr ensure no nephrotoxic agents will follow along Appreciate hospitalist help in managing this pt Status: Acute
--- NOTE | 2017-04-24 14:23 | Internal Med Progress Note ---
Medical - PN: Subj Patient information: Note initiated : 04/24/17 at 2:21 pm Service Date, if different from initiated Date: [] Patient: Bart Pagan a 57 y/o M admitted on 04/18/17 for Debridement of Wound Right Foot. Chief Complaint: [] Interval history: Mr. Pagan is a 57 year old M who underwentright foot metatarsal amputation on March 07. Patient has been recovering well and has been following up with wound care. On Monday patient saw on care physician and underwent treatment along with 2 stitches. Over the weekend patient has noted increasing swelling and pain discharge. By Monday patient started experiencing shaking chills and drenching sweats long with excessive exhaustion. Today at work patient was unable to bear weight due to increasing pain and swelling along with associated fever. He notices bandage soaked in bloody discharge. he is afebrile 102. e was subsequently directed by Dr. Cameron's officeto ER. initial workup was significant for elevated white count along with fever and sepsis. hospitalist service was consulted after case was discussed with Dr. Maresor admission initiation of antibiotics and likely initiation of hyperbaric treatments. at the time of examination patient is alert oriented. He denies any active distress except for amputation stump pain and swelling. he endorses to fevers. Denies diarrhea dysuria headache photophobia skin rash or joint pain or weight loss. 04/19: Pt seen examined, febrile overnight, blood cx positive, on vancomycin, antibiotics changed from rocephin ./ clinda to zosyn. Patient on pn tylenol. HBOT rx done today and he is s/p wound debridement by Dr Mccauley. Plan to continue antibiotics for now. LIkely staph related infection, but given DM wound will cover from gram neg as well as anerobic infections. Patient otherwise is doing well, denies any acute complaints besdies pain in the leg and some mechanical back discomfort. his labs show worsening renal functino, nephrology following, IV fluid rate increased, and torsemide held. 04/20-patient ongoing hyperbaric treatment. Pansensitive MSSA. Continue Zosyn. Ongoing wound and osteomyelitis management by Dr. Cameron.post debridement day 1. Wound care physician plans to continue HBO reatment/wound VAC placement. Creatinine 4.9. renal issues managed by nephrology. Hemoglobin 7.3. Transfuse 2 units PRBC. Surveillance cultures pending. ok count 11.9. persistent bandemia. vernight persistently shaking chills fever. MAXIMUM TEMPERATURE 101. 9/1. Patient doing well. No overnight events and rested well. Patient however is anxious about treatment plan given underlying osteomyelitis he would rather want further amputation to remove infected bone. I explained the current treatment is being directed as per wound care physician's ecommendations including debridement/hBO/ IV antibiotics. nursing staff expressed concerns about elevated blood sugars. Patient restarted on 20 twice a day Lantus. Improved fevers shaking chills. Tolerating hyperbaric oxygen treatments well. MSSA on blood culture. Surveillance blood cultures negative so far. white count down to 11.7. BUN and 73 creatinine 4.7.off vancomycin. Continue Zosyn. 04/22: Patient seen examined, no acute overnight issues, patient sitting in the chair and is tolerating po diet well, He has a wound vac on by Dr Mccauley, plans for contiued HBOT for now. likely needs 10 treatments, next scheduled for monday and last treatment likely Monday. Continue with present antibiotics. labs stable. creat improving to 4.5, nephrology following continue to monitor. 04/23: Pt seen examined, still has low grade leucocytosis but no other symptoms, etiology steroids? He remains on antibiotics as per his microbiology. Lab show slight worsening in creatinine to 4.7 today. clinically not volume overloaded, will give 1 L normal Saline and reassess in AM. continue IV Abx, Wound care plan as per wound care surgery. 04/24: patient seen examined, no acute ovenright issues reported, but the patients blood work shows rising WBC count, pt feels that his infection may be coming back, and the patient has significantly worsening renal function. Creat is now 5.7 despite 1L fluid given yesterday. The patients UA has RBC and few wbc, culture pending, patient cxr shows some atelectasis, At this time I am not sure if the patient wound is completely debrided. I reviewed with Case with Dr Mccauley, and plan to get an MRI of the foot for further evaluation. Dr Garcia evaluated the patient and patients workup is pending. etiology of hematuria? Pt did not have a carrero, renal usg ordered. Antibiotics changed from zosyn to ertapenum. Pertinent ROS: Denies headache, dizziness Denies chest pain, palpitations Denies cough or shortness of breath Denies abdominal pain, nausea or vomiting. - Constitutional Vitals: Vital Signs Temp Pulse Resp BP Pulse Ox 97.6 F 44 L 16 153/89 99 04/24/17 10:37 04/24/17 07:46 04/24/17 10:37 04/24/17 10:37 04/24/17 10:37 Period Temp Pulse Resp BP Sys/Mancini Pulse Ox Last 24 Hr 97.3 F-98.3 F 44-47 16-20 129-182/66-89 93-99 Intake and Output 04/24/17 04/24/17 04/24/17 05:59 13:59 21:59 Intake Total 350 / 350 300 / 300 Output Total 225 / 225 Balance 350 / 350 75 / 75 Intake & Output: Intake & Output 04/24/17 04/24/17 04/24/17 05:59 13:59 21:59 Intake Total 350 / 350 300 / 300 Output Total 225 / 225 Balance 350 / 350 75 / 75 Intake: IV 50 / 50 Zosyn 2.25 gm In Dextrose 50 / 50 5% in Water 50 ml @ 100 mls/hr IV Q8H [facility] Rx#: [id number] Oral 300 / 300 300 / 300 Output: Void Amount 225 / 225 Exam: Constitutional; Afebrile, cooperative, alert, not in distress. Eyes- No icterus, , No periorbital swelling Ears- Ext ear normal, hearing normal to conversation. Neck- Midline trachea, supple Respiratory system: Air Entry equal on both sides, No crackles or wheezing, no rhonchi. CVS- Rate rhythm regular, S1,S2 heard, no gallop, no rub. Abdomen- Soft nontender abdomen, no organomegaly, no tenderness, no guarding or rigidity, ADON- AOOx3, moving all extremities, no gross focal deficit noted. rigt leg wo und reviewed, warm to touch, open lateral region. s/p [facility] Medical - PN: Obj Da - Labs CBC & Chem 7: 04/24/17 05:40 04/24/17 05:40 Labs: Abnormal Lab Results 04/24/17 04/24/17 04/24/17 08:13 05:40 05:40 WBC RBC Hgb Hct RDW Gran % Lymph % (Auto) Gran # Lymph # (Auto) Lymphocytes % Myelocytes % RBC Morphology Anisocytosis RBC Fragments ESR > 120 H Sodium Chloride BUN Creatinine Glucose Uric Acid Magnesium GGT ALT C-Reactive Protein 7.0 H Albumin Globulin Albumin/Globulin Ratio Triglycerides Urine Protein >=500 A Urine Glucose (UA) >=500 A Urine Occult Blood >=1.0 A Urine RBC > 182 H Urine WBC 14 H Hyaline Casts 8 H 04/24/17 04/24/17 04/23/17 05:40 05:40 03:50 WBC 13.3 H RBC 3.07 L Hgb 8.9 L Hct 26.9 L RDW 15.2 H Gran % 81.9 H Lymph % (Auto) 9.5 L Gran # 10.9 H Lymph # (Auto) 1.3 L Lymphocytes % Myelocytes % RBC Morphology Anisocytosis RBC Fragments ESR Sodium 130 L 131 L Chloride 92 L 93 L BUN 81 H 73 H Creatinine 5.7 H* 4.8 H Glucose 210 H 213 H Uric Acid 8.9 H Magnesium 2.7 H GGT 74 H ALT C-Reactive Protein Albumin 2.8 L 2.9 L Globulin 4.0 H 3.9 H Albumin/Globulin Ratio 0.7 L 0.7 L Triglycerides 169 H Urine Protein Urine Glucose (UA) Urine Occult Blood Urine RBC Urine WBC Hyaline Casts 04/23/17 04/22/17 04/22/17 03:50 03:50 03:50 WBC 11.4 H 11.9 H RBC 3.15 L 3.07 L Hgb 9.0 L 9.0 L Hct 27.6 L 26.8 L RDW 15.8 H 15.2 H Gran % Lymph % (Auto) Gran # Lymph # (Auto) Lymphocytes % 13 L 10 L Myelocytes % 1 H RBC Morphology Abnorm A Abnorm A Anisocytosis Few A RBC Fragments Few A ESR Sodium 130 L Chloride 91 L BUN 68 H Creatinine 4.5 H Glucose 221 H Uric Acid 8.3 H Magnesium GGT 88 H ALT 46 H C-Reactive Protein Albumin 2.7 L Globulin 4.2 H Albumin/Globulin Ratio 0.6 L Triglycerides 170 H Urine Protein Urine Glucose (UA) Urine Occult Blood Urine RBC Urine WBC Hyaline Casts Meds: Medications Acetaminophen (Tylenol) 650 mg PO Q4-6HP PRN PRN Reason: PAIN/FEVER > 101 Allopurinol (Zyloprim) 200 mg PO QDAY [facility] Last Admin: 04/24/17 10:44 Dose: 200 mg Amlodipine Besylate (Norvasc) 10 mg PO QDAY [facility] Last Admin: 04/24/17 10:43 Dose: 10 mg Atorvastatin Calcium (Lipitor) 40 mg PO DAILY [facility] Last Admin: 04/24/17 10:43 Dose: 40 mg Calcium Acetate (Phoslo) 667 mg PO TIDCC [facility] Last Admin: 04/24/17 13:53 Dose: Not Given Dextrose (Dextrose 50%) 0 ml IV UD PRN PRN Reason: Hypoglycemia Diagnostic Test (Pha) (Accu-Chek) 1 each FS ACHS [facility] Last Admin: 04/24/17 10:42 Dose: 1 each Docusate Sodium (Colace) 100 mg PO BID [facility] Last Admin: 04/24/17 10:44 Dose: 100 mg Ferrous Sulfate (Ferrous Sulfate) 325 mg PO CCHS [facility] Last Admin: 04/24/17 13:52 Dose: Not Given Glucose (Insta-Glucose) 15 gm PO PRN PRN PRN Reason: Hypoglycemia Guaifenesin/Codeine Phosphate (Robitussin Ac) 10 ml PO Q4HP PRN PRN Reason: Cough Heparin Sodium (Porcine) (Heparin Flush) 2 ml IV Q12 [facility] Last Admin: 04/24/17 10:43 Dose: 2 ml Hydralazine HCl (Apresoline) 25 mg PO BIDP PRN PRN Reason: Hypertension Magnesium Sulfate (Magnesium Sulfate) 2 gm in 50 mls @ 50 mls/hr IV UD PRN PRN Reason: MG = or < 1.7 Acetaminophen (Ofirmev) 1,000 mg in 100 mls @ 200 mls/hr IV Q6HP PRN PRN Reason: PAIN/FEVER > 101 Sodium Chloride (Sodium Chloride 0.9%) 1,000 mls @ 75 mls/hr IV .[id number] [facility] Ertapenem 0.5 gm/ Sodium (Chloride) 50 mls @ 100 mls/hr IV Q24H [facility] Insulin Glargine (Lantus) 25 unit SQ BID [facility] Last Admin: 04/24/17 10:42 Dose: 25 unit Insulin Human Lispro (Humalog) 0 unit SQ [facility] PRN Reason: Protocol Last Admin: 04/24/17 12:05 Dose: 2 unit Iron Carb/Multivit/Converse/Folic Acid (Multivitamin W/Minerals) 1 tab PO DAILY [facility] Last Admin: 04/24/17 10:44 Dose: 1 tab [facility]ine [facility]) [facility] Admin: 04/24/17 06:59 Dose: 300 mcg Lorazepam (Ativan) 1 mg PO DAILYP PRN PRN Reason: ANXIETY/SEDATION Morphine Sulfate (Morphine) 2 mg IV TIDP PRN PRN Reason: Pain Ondansetron HCl (Zofran) 4 mg IV Q4-6HP PRN PRN Reason: Nausea And Vomiting Oxycodone HCl (Roxicodone) 5 mg PO Q4HP PRN PRN Reason: Pain Last Admin: 04/24/17 12:04 Dose: 5 mg Potassium Chloride (Klor-Con) 40 meq PO DAILYP PRN PRN Reason: K+ < 3.5 Prednisone (Prednisone) 10 mg PO [facility] Last Admin: 04/24/17 10:44 Dose: 10 mg Rivaroxaban (Xarelto) 15 mg PO [facility] Last Admin: 04/24/17 11:22 Dose: 15 mg Senna/Docusate Sodium (Senna Plus Tablet) 1 tab PO HS [facility] Last Admin: 04/23/17 20:23 Dose: 1 tab Sodium Chloride (Saline Flush) 10 ml IV UD PRN PRN Reason: FLUSH Sodium Chloride (Saline Flush) 10 ml IV Q8 [facility] Last Admin: 04/24/17 05:32 Dose: 10 ml Medical - PN: A/P - Time Spent With Patient Total time spent is greater than 50% in coordination of care (as documented) at patient's floor/unit and/or counseling patient: - Narrative A/P Narrative: A/P Infected Diabetic Ulcer: s/p debridement, MSSA in the wound and blood cx, was on zosyn switched to ertapenum ( zosyn as cause of renal failure? ) MRI of the foot pending, off wound vac, plan Staph Bacteremia: On ertapenum now. will repeat cultures and get Echo. LA on CKD: Creat is 5.7 today,IV fluids, Renal USG, . Hold torsemide, Nephrology is following. Osteomyelitis of heel: WIll need antibiotics for 6 weeks, total, Will need ID follow up as outpatient Sepsis peristant, worsening WBC is concerning, management as above. IV fluids, DM type 2 on insulin, uncontrolled :glucose on high end but ok given need for high glucose for HBOT. monitor. afib: rate controlled, on anticoagulation H/o DVT on Rivaroxaban continue same Anemia: due to infection, ckd, and post op loss? s/p trasnfusion, hb stable now , monitor. Hypothyroidism: Continue levothyroxoine Full code Medical - PN: Qual - VTE Deep Vein Thrombosis/Pulmonary Embolism Present on Admission: No
--- NOTE | 2017-04-24 14:53 | Ultrasound Report ---
CLINICAL INFORMATION: Renal failure COMPARISON: None. FINDINGS: Both kidneys are moderately enlarged and diffusely hyperechoic: The right is 13.9 x 6.7 cm and the left is 13 x 5.8 cm. No focal solid or cystic masses. No evidence of stone or hydronephrosis. Arterial blood flows grossly normal on color and spectral Doppler. Urinary bladder volume 93 cc no focal urinary bladder lesions unable to void IMPRESSION: Moderate bilateral renal enlargement with a elevated renal echotexture. Although this is a common pattern for diabetic nephropathy, it is nonspecific and other pathological processes may have a similar pattern including: proliferative disorders such as acute glomerulonephritis, Humza's, lupus, polyarteritis nodosa or Goodpasture's disease. abnormal proteins seen in amyloid or multiple myeloma, acute tubular necrosis and acute cortical necrosis, infiltration with leukemia or lymphoma. Acute interstitial nephritis is also possible Interpreted and Authenticated by: Nakul Huynh 04/24/17
[2017-04-24] MEDS: ERTAPENEM 0.5 GM in 0.9 % SODIUM CHLORIDE 50 ML IV SCH (15:10)
[2017-04-24] MEDS ORDERED: predniSONE 10 MG TABLET PO SCH (15:54)
[2017-04-24 16:23] LABS: Complement C3 145.1 mg/dl (90-180)
[2017-04-24] MEDS ORDERED: FAMOTIDINE/PF 20 MG/2 ML VIAL IV SCH (21:00)
[2017-04-24] MEDS: SENNOSIDES/DOCUSATE SODIUM 1 TAB TABLET PO SCH (21:44)
[2017-04-25 05:40] LABS: Basophils # (Auto) 0 K/mcL (0.0-0.3); Basophils % (Auto) 0.2 % (0.0-2.0); Eosinophils # (Auto) 0.1 K/mcL (0.0-0.7); Granulocytes % (Auto) 86.9 % (38.0-78.0); Lymphocytes % (Auto) 7.5 % (15.5-49.0); Mean Cell Volume 87.4 fL (80.0-100.0); Mean Corpuscular HGB Conc 33.1 g/dL (31.0-36.0); Mean Corpuscular Hemoglobin 28.9 pg (26.0-34.0); Monocytes # (Auto) 0.6 K/mcL (0.1-0.9); Monocytes % (Auto) 4.4 % (1.0-12.0); Platelet Count 394 K/mcL (140-440); RBC 2.99 M/mcL (4.50-5.90); Red Cell Distribution Width 15.6 % (11.5-14.5)
[2017-04-25 06:46] LABS: ALT/SGPT 20 U/l (0-40); Albumin 2.7 gm/dL (3.2-5.2); Albumin/Globulin Ratio 0.7 (1.0-2.3); Alkaline Phosphatase 71 U/L (39-117); Bilirubin,Direct < 0.2 mg/dL (0.0-0.3); Blood Urea Nitrogen 85 mg/dl (6-20); Gamma Glutamyl Transpeptidase 61 U/L (8-61); Magnesium 2.9 mg/dL (1.6-2.5); Uric Acid 9.8 mg/dL (2.5-8.0)
[2017-04-25] MEDS: LEVOTHYROXINE 150 MCG TABLET PO SCH (07:32)
[2017-04-25] MEDS: 0.9 % SODIUM CHLORIDE 10 ML SYRINGE IV SCH ×3 (07:33→20:21)
[2017-04-25] MEDS: INSULIN LISPRO 1 UNIT/0.01 ML UNIT SQ SCH ×4 (07:43→20:19)
[2017-04-25] MEDS: FERROUS SULFATE 325 MG TABLET PO SCH ×4 (07:44→20:12)
[2017-04-25] MEDS: CALCIUM ACETATE 667 MG CAPSULE PO SCH ×3 (07:44→16:56)
[2017-04-25] MEDS ORDERED: 0.9 % SODIUM CHLORIDE 10 ML SYRINGE IV PRN (09:30)
[2017-04-25] MEDS ORDERED: DEXTROSE 50% 50 ML VIAL IV PRN (09:30)
[2017-04-25] MEDS ORDERED: hydrALAZINE 25 MG TABLET PO PRN (09:30)
[2017-04-25] MEDS ORDERED: DEXTROSE 31 GM ORAL.SUSP PO PRN (09:30)
[2017-04-25] MEDS ORDERED: POTASSIUM CHLORIDE 20 MEQ PACKET PO PRN (09:30)
[2017-04-25] MEDS ORDERED: ACETAMINOPHEN 1,000 MG/100 ML BOTTLE IV PRN (09:30)
[2017-04-25] MEDS ORDERED: MAGNESIUM SULFATE 2 GM/50 ML BAG IV PRN (09:30)
[2017-04-25] MEDS ORDERED: 0.9 % SODIUM CHLORIDE 1,000 ML IV SCH (09:30)
[2017-04-25] MEDS ORDERED: ACETAMINOPHEN 325 MG TABLET PO PRN (09:30)
[2017-04-25] MEDS ORDERED: ONDANSETRON 4 MG/2 ML VIAL IV PRN (09:30)
[2017-04-25] MEDS ORDERED: guaiFENesin/CODEINE 10 ML UDC PO PRN (09:30)
[2017-04-25 10:38] LABS: Magnesium 2.9 mg/dL (1.6-2.5)
[2017-04-25 10:47] LABS: Blood Urea Nitrogen 93 mg/dl (6-20)
[2017-04-25] MEDS: amLODIPine 10 MG TABLET PO SCH (10:47)
[2017-04-25] MEDS: ALLOPURINOL 100 MG TABLET PO SCH (10:47)
[2017-04-25] MEDS: MULTIVIT,THER IRON,CA,FA & MIN 1 TABLET PO SCH (10:48)
[2017-04-25] MEDS: ATORVASTATIN 20 MG TABLET PO SCH (10:48)
[2017-04-25] MEDS: INSULIN GLARGINE, HUMAN 1 UNIT/0.01 ML SQ SCH ×2 (10:49→20:20)
[2017-04-25] MEDS: ERTAPENEM 0.5 GM in 0.9 % SODIUM CHLORIDE 50 ML IV SCH ×2 (10:49→12:07)
[2017-04-25] MEDS: DOCUSATE SODIUM 100 MG CAPSULE PO SCH ×2 (10:50→20:12)
[2017-04-25] MEDS: THEOPHYLLINE ANHYDROUS 400 MG TAB.XL.24H PO SCH ×2 (14:00→22:02)
--- NOTE | 2017-04-25 14:15 | Internal Med Progress Note ---
Medical - PN: Subj Patient information: Note initiated : 04/25/17 at 2:13 pm Service Date, if different from initiated Date: [] Patient: Bart Pagan a 57 y/o M admitted on 04/18/17 for Debridement of Wound Right Foot. Chief Complaint: [] Interval history: Mr. Pagan is a 57 year old M who underwentright foot metatarsal amputation on March 07. Patient has been recovering well and has been following up with wound care. On Monday patient saw on care physician and underwent treatment along with 2 stitches. Over the weekend patient has noted increasing swelling and pain discharge. By Monday patient started experiencing shaking chills and drenching sweats long with excessive exhaustion. Today at work patient was unable to bear weight due to increasing pain and swelling along with associated fever. He notices bandage soaked in bloody discharge. he is afebrile 102. e was subsequently directed by Dr. Cameron's officeto ER. initial workup was significant for elevated white count along with fever and sepsis. hospitalist service was consulted after case was discussed with Dr. Maresor admission initiation of antibiotics and likely initiation of hyperbaric treatments. at the time of examination patient is alert oriented. He denies any active distress except for amputation stump pain and swelling. he endorses to fevers. Denies diarrhea dysuria headache photophobia skin rash or joint pain or weight loss. 04/19: Pt seen examined, febrile overnight, blood cx positive, on vancomycin, antibiotics changed from rocephin ./ clinda to zosyn. Patient on pn tylenol. HBOT rx done today and he is s/p wound debridement by Dr Mccauley. Plan to continue antibiotics for now. LIkely staph related infection, but given DM wound will cover from gram neg as well as anerobic infections. Patient otherwise is doing well, denies any acute complaints besdies pain in the leg and some mechanical back discomfort. his labs show worsening renal functino, nephrology following, IV fluid rate increased, and torsemide held. 04/20-patient ongoing hyperbaric treatment. Pansensitive MSSA. Continue Zosyn. Ongoing wound and osteomyelitis management by Dr. Cameron.post debridement day 1. Wound care physician plans to continue HBO reatment/wound VAC placement. Creatinine 4.9. renal issues managed by nephrology. Hemoglobin 7.3. Transfuse 2 units PRBC. Surveillance cultures pending. ok count 11.9. persistent bandemia. vernight persistently shaking chills fever. MAXIMUM TEMPERATURE 101. 9/1. Patient doing well. No overnight events and rested well. Patient however is anxious about treatment plan given underlying osteomyelitis he would rather want further amputation to remove infected bone. I explained the current treatment is being directed as per wound care physician's ecommendations including debridement/hBO/ IV antibiotics. nursing staff expressed concerns about elevated blood sugars. Patient restarted on 20 twice a day Lantus. Improved fevers shaking chills. Tolerating hyperbaric oxygen treatments well. MSSA on blood culture. Surveillance blood cultures negative so far. white count down to 11.7. BUN and 73 creatinine 4.7.off vancomycin. Continue Zosyn. 04/22: Patient seen examined, no acute overnight issues, patient sitting in the chair and is tolerating po diet well, He has a wound vac on by Dr Mccauley, plans for contiued HBOT for now. likely needs 10 treatments, next scheduled for monday and last treatment likely Monday. Continue with present antibiotics. labs stable. creat improving to 4.5, nephrology following continue to monitor. 04/23: Pt seen examined, still has low grade leucocytosis but no other symptoms, etiology steroids? He remains on antibiotics as per his microbiology. Lab show slight worsening in creatinine to 4.7 today. clinically not volume overloaded, will give 1 L normal Saline and reassess in AM. continue IV Abx, Wound care plan as per wound care surgery. 04/24: patient seen examined, no acute ovenright issues reported, but the patients blood work shows rising WBC count, pt feels that his infection may be coming back, and the patient has significantly worsening renal function. Creat is now 5.7 despite 1L fluid given yesterday. The patients UA has RBC and few wbc, culture pending, patient cxr shows some atelectasis, At this time I am not sure if the patient wound is completely debrided. I reviewed with Case with Dr Mccauley, and plan to get an MRI of the foot for further evaluation. Dr Garcia evaluated the patient and patients workup is pending. etiology of hematuria? Pt did not have a carrero, renal usg ordered. Antibiotics changed from zosyn to ertapenum. 04/25: patient seen, examined, overnight events noted, patient has no acute complaints but is feeling much more tired and weak. The patient also reports some amount of nausea. No vomiting. Denies any chest pain, denies any shortness of breath. Denies any palpitations. The patient's creatinine is worsening, the patient was Placed on telemetry and the plan was to initiate dialysis. On telemetry, it was noted that the patient had significant bradycardia with heart rates and 28-40. The patient does have some sinus pauses. Patient's troponin was elevated at 0.22, EKG reveals sinus bradycardia. I called Dr. Gonzalez was the data security coordinator manager collection at [facility], as well as the patient's primary data security coordinator. He reviewed the patient's history and is aware of the chronic bradycardia issues, but was not aware of the heart. It was this low. Given that the patient has an active infection He noted that the patient is not a candidate for a pacemaker placement at this point in time. He noted that the troponin is likely secondary to hypoperfusion and no specific management was warranted for same. The patient has had a negative stress test in 2014. He advised to start the patient on theophylline 200 mg twice a day to see if it helps with the bradycardia. He also said to use isoproterenol if heart rate drops too low or during a procedure if needed given very low heart rate, but no contraindication for any procedure. Did not think pt needed to be transferred to higher center. Pertinent ROS: Denies headache, dizziness Denies chest pain, palpitations Denies cough or shortness of breath Denies abdominal pain, nausea or vomiting. - Constitutional Vitals: Vital Signs Temp Pulse Resp BP Pulse Ox 98.4 F 52 L 20 165/72 94 04/25/17 11:11 04/25/17 07:38 04/25/17 11:11 04/25/17 11:11 04/25/17 11:11 Period Temp Pulse Resp BP Sys/Mancini Pulse Ox Last 24 Hr 98.1 F-98.5 F 50-59 12-20 139-168/64-82 91-97 Intake and Output 04/25/17 04/25/17 04/25/17 05:59 13:59 21:59 Intake Total 400 / 400 2013 Output Total 30 Balance 370 / 370 2013 Intake & Output: Intake & Output 04/25/17 04/25/17 04/25/17 05:59 13:59 21:59 Intake Total 400 / 400 2013 Output Total 30 30 Balance 370 / 370 2013 Intake: IV 2013 Sodium Chloride 0.9% 1, 864 / 864 000 ml @ 50 mls/hr IV . Q20H JUANA Rx#:[id number] INVanz 0.5 GM In Sodium 100 / 100 Chloride 0.9% 50 ml @ 100 mls/hr IV Q24H JUANA Rx#: [id number] Oral 400 / 400 Output: Void Amount Other: Meal Breakfast Percent of Meal Consumed 25% Feeding Ability Independent # Bowel Movements 1 Exam: Constitutional; Afebrile, cooperative, alert, not in distress. Eyes- No icterus, , No periorbital swelling Ears- Ext ear normal, hearing normal to conversation. Neck- Midline trachea, supple Respiratory system: Air Entry equal on both sides, No crackles or wheezing, no rhonchi. CVS- Rate bardycardic rhythm irregular, S1,S2 heard, no gallop, no rub. Abdomen- Soft nontender abdomen, no organomegaly, no tenderness, no guarding or rigidity, COMPLAINT INVESTIGATIONS OFFICER- AOOx3, moving all extremities, no gross focal deficit noted. Medical - PN: Obj Da - Labs CBC & Chem 7: 04/25/17 05:35 04/25/17 09:27 Labs: Abnormal Lab Results 04/25/17 04/25/17 04/25/17 09:27 09:27 09:27 WBC RBC Hgb Hct RDW Gran % Lymph % (Auto) Gran # Lymph # (Auto) Lymphocytes % RBC Morphology Anisocytosis ESR Sodium 126 L Chloride 89 L Carbon Dioxide 20 L Anion Gap 17.0 H BUN 93 H Creatinine 7.2 H* Glucose 245 H Uric Acid Calcium 8.4 L Phosphorus Magnesium 2.9 H GGT Troponin T 0.22 H* C-Reactive Protein Albumin Globulin Albumin/Globulin Ratio Triglycerides Urine Protein Urine Glucose (UA) Urine Occult Blood Urine RBC Urine WBC Hyaline Casts U Black Prot/Creat Ratio 04/25/17 04/25/17 04/24/17 05:35 05:35 17:48 WBC 13.9 H RBC 2.99 L Hgb 8.6 L Hct 26.1 L RDW 15.6 H Gran % 86.9 H Lymph % (Auto) 7.5 L Gran # 12.1 H Lymph # (Auto) 1.0 L Lymphocytes % RBC Morphology Anisocytosis ESR Sodium 126 L Chloride 89 L Carbon Dioxide 20 L Anion Gap 17.0 H BUN 85 H Creatinine 6.9 H* Glucose 246 H Uric Acid 9.8 H Calcium 8.5 L Phosphorus 5.5 H Magnesium 2.9 H GGT Troponin T C-Reactive Protein Albumin 2.7 L Globulin 4.0 H Albumin/Globulin Ratio 0.7 L Triglycerides 170 H Urine Protein Urine Glucose (UA) Urine Occult Blood Urine RBC Urine WBC Hyaline Casts U Black Prot/Creat Ratio 9.50 H 04/24/17 04/24/17 04/24/17 08:13 05:40 05:40 WBC RBC Hgb Hct RDW Gran % Lymph % (Auto) Gran # Lymph # (Auto) Lymphocytes % RBC Morphology Anisocytosis ESR > 120 H Sodium Chloride Carbon Dioxide Anion Gap BUN Creatinine Glucose Uric Acid Calcium Phosphorus Magnesium GGT Troponin T C-Reactive Protein 7.0 H Albumin Globulin Albumin/Globulin Ratio Triglycerides Urine Protein >=500 A Urine Glucose (UA) >=500 A Urine Occult Blood >=1.0 A Urine RBC > 182 H Urine WBC 14 H Hyaline Casts 8 H U Black Prot/Creat Ratio 04/24/17 04/24/17 04/23/17 05:40 05:40 03:50 WBC 13.3 H RBC 3.07 L Hgb 8.9 L Hct 26.9 L RDW 15.2 H Gran % 81.9 H Lymph % (Auto) 9.5 L Gran # 10.9 H Lymph # (Auto) 1.3 L Lymphocytes % RBC Morphology Anisocytosis ESR Sodium 130 L 131 L Chloride 92 L 93 L Carbon Dioxide Anion Gap BUN 81 H 73 H Creatinine 5.7 H* 4.8 H Glucose 210 H 213 H Uric Acid 8.9 H Calcium Phosphorus Magnesium 2.7 H GGT 74 H Troponin T C-Reactive Protein Albumin 2.8 L 2.9 L Globulin 4.0 H 3.9 H Albumin/Globulin Ratio 0.7 L 0.7 L Triglycerides 169 H Urine Protein Urine Glucose (UA) Urine Occult Blood Urine RBC Urine WBC Hyaline Casts U Black Prot/Creat Ratio 04/23/17 03:50 WBC 11.4 H RBC 3.15 L Hgb 9.0 L Hct 27.6 L RDW 15.8 H Gran % Lymph % (Auto) Gran # Lymph # (Auto) Lymphocytes % 13 L RBC Morphology Abnorm A Anisocytosis Few A ESR Sodium Chloride Carbon Dioxide Anion Gap BUN Creatinine Glucose Uric Acid Calcium Phosphorus Magnesium GGT Troponin T C-Reactive Protein Albumin Globulin Albumin/Globulin Ratio Triglycerides Urine Protein Urine Glucose (UA) Urine Occult Blood Urine RBC Urine WBC Hyaline Casts U Black Prot/Creat Ratio Meds: Medications Acetaminophen (Tylenol) 650 mg PO Q4-6HP PRN PRN Reason: PAIN/FEVER > 101 Allopurinol (Zyloprim) 200 mg PO QDAY [facility] Atorvastatin Calcium (Lipitor) 40 mg PO DAILY [facility] Calcium Acetate (Phoslo) 667 mg PO TIDCC [facility] Last Admin: 04/25/17 11:35 Dose: Not Given Dextrose (Dextrose 50%) 0 ml IV UD PRN PRN Reason: Hypoglycemia Diagnostic Test (Pha) (Accu-Chek) 1 each FS ACHS [facility] Last Admin: 04/25/17 11:57 Dose: 1 each Docusate Sodium (Colace) 100 mg PO BID [facility] Famotidine (Pepcid) 20 mg IV HS [facility] Ferrous Sulfate (Ferrous Sulfate) 325 mg PO CCHS [facility] Last Admin: 04/25/17 11:35 Dose: Not Given Glucose (Insta-Glucose) 15 gm PO PRN PRN PRN Reason: Hypoglycemia Guaifenesin/Codeine Phosphate (Robitussin Ac) 10 ml PO Q4HP PRN PRN Reason: Cough Heparin Sodium (Porcine) (Heparin Flush) 2 ml IV Q12 [facility] Hydralazine HCl (Apresoline) 25 mg PO BIDP PRN PRN Reason: Hypertension Magnesium Sulfate (Magnesium Sulfate) 2 gm in 50 mls @ 50 mls/hr IV UD PRN PRN Reason: MG = or < 1.7 Acetaminophen (Ofirmev) 1,000 mg in 100 mls @ 200 mls/hr IV Q6HP PRN PRN Reason: PAIN/FEVER > 101 Ertapenem 0.5 gm/ Sodium (Chloride) 50 mls @ 100 mls/hr IV Q24H [facility] Last Infusion: 04/25/17 12:40 Dose: Infused Insulin Glargine (Lantus) 25 unit SQ BID [facility] Insulin Human Lispro (Humalog) 0 unit SQ ACHS [facility]NA PRN Reason: Protocol Last Admin: 04/25/17 12:05 Dose: 4 unit Iron Carb/Multivit/Jerauld/Folic Acid (Multivitamin W/Minerals) 1 tab PO DAILY [facility] Levothyroxine Sodium (Synthroid) 300 mcg PO QAMAC [facility] Lorazepam (Ativan) 1 mg PO DAILYP PRN PRN Reason: ANXIETY/SEDATION Morphine Sulfate (Morphine) 2 mg IV TIDP PRN PRN Reason: Pain Ondansetron HCl (Zofran) 4 mg IV Q4-6HP PRN PRN Reason: Nausea And Vomiting Oxycodone HCl (Roxicodone) 5 mg PO Q4HP PRN PRN Reason: Pain Potassium Chloride (Klor-Con) 40 meq PO DAILYP PRN PRN Reason: K+ < 3.5 Prednisone (Prednisone) [facility] Senna/Docusate Sodium (Senna Plus Tablet) 1 tab PO HS [facility] Sodium Chloride (Saline Flush) 10 ml IV UD PRN PRN Reason: FLUSH Sodium Chloride (Saline Flush) 10 ml IV Q8 [facility] Last Admin: 04/25/17 12:05 Dose: 10 ml Theophylline (Uniphyll) 200 mg PO BID [facility] Last Admin: 04/25/17 14:00 Dose: 200 mg Medical - PN: A/P - Time Spent With Patient Total time spent is greater than 50% in coordination of care (as documented) at patient's floor/unit and/or counseling patient: - Narrative A/P Narrative: A/P Infected Diabetic Ulcer: s/p debridement, MSSA in the wound and blood cx, was on zosyn switched to ertapenum ( zosyn as cause of renal failure? ) MRI of the foot pending, off wound vac, Staph Bacteremia: On ertapenum now. repeat cx neg, echo result pending Bradycardia/ Elevated trop: Discussed with Dr Hobbs, start on theophylline, prn isopreul, will need pacemaker in the termite treater but cannot get one due to infection. Amlodipine stopped can in some cases cause bradycardia. Monitor on tele, pacer leads in place. LA on CKD: Creat is 7.2, plan for HD, will get Catheter tomorrow if HR is more stable Osteomyelitis of the foot: Will need antibiotics for 6 weeks, total, Will need ID follow up as outpatient, MRI ordered Sepsis ? wbc elevation could be secondary to steroids, sepsis vs drug induced AIN, monitor for now. DM type 2 on insulin, uncontrolled :glucose on high end but ok given need for high glucose for HBOT. monitor. afib: rate controlled, on anticoagulation H/o DVT on Rivaroxaban held now for procedure. Anemia: due to infection, ckd, and post op loss? s/p trasnfusion, hb stable now , monitor. Hypothyroidism: Continue levothyroxoine Full code Medical - PN: Qual - VTE Deep Vein Thrombosis/Pulmonary Embolism Present on Admission: No
--- NOTE | 2017-04-25 14:55 | General Surgery Progress Note ---
Subjective Patient reports: other (Worsening CRF. Wound of RIGHT foot unchanged. S/P Right TMA, ith post operative complication of wound dehiscense. ) Narrative: Note initiated : 04/25/17 at 2:52 pm Service Date, if different from initiated Date: [] Patient: Bart Pagan 57 y/o M admitted on 04/18/17 for Debridement of Wound Right Foot. Chief Complaint: [] Objective Temp Pulse Resp BP Pulse Ox 98.4 F 52 L 20 165/72 94 04/25/17 11:11 04/25/17 07:38 04/25/17 11:11 04/25/17 11:11 04/25/17 11:11 - Additional Data Intake & Output - Last 24 hours: Intake & Output 04/23/17 04/24/17 04/25/17 04/26/17 05:59 05:59 05:59 05:59 Intake Total 1585 / 1585 2770 / 2770 1910 / 1910 2013 Output Total 1375 / 1375 175 / 175 395 / 395 Balance 210 / 210 2595 / 2595 1515 / 1515 2013 Weight 247 lb 244 lb 8 oz 246 lb 8 oz - General physical appearance well developed, well nourished, no distress, chronically ill, other (Feels bloated and puffed up. Edematous face and puffiness of eyes and pale conjuntiva. ) - Labs 04/25/17 05:35 04/25/17 09:27 Diabetes panel 04/25/17 04/25/17 Range/Units 05:35 09:27 Sodium 126 L 126 L (133-145) mmol/L Potassium 4.1 4.7 (3.3-5.1) mmol/L Chloride 89 L 89 L (96-108) mmol/L Carbon Dioxide 20 L 20 L (22-30) mmol/L BUN 85 H 93 H (6-20) mg/dl Creatinine 6.9 H* 7.2 H* (0.7-1.2) mg/dl Glucose 246 H 245 H (70-105) mg/dL Calcium 8.5 L 8.4 L (8.6-10.4) mg/dl AST 16 (0-37) U/l ALT 20 (0-40) U/l Alkaline Phosphatase 71 (39-117) U/L Total Protein 6.7 (5.9-8.4) gm/dL Albumin 2.7 L (3.2-5.2) gm/dL Triglycerides 170 H (<150) mg/dl Calcium panel 04/25/17 04/25/17 Range/Units 05:35 09:27 Calcium 8.5 L 8.4 L (8.6-10.4) mg/dl Phosphorus 5.5 H (2.7-4.5) mg/dL Albumin 2.7 L (3.2-5.2) gm/dL Pituitary panel 04/25/17 04/25/17 Range/Units 05:35 09:27 Sodium 126 L 126 L (133-145) mmol/L Potassium 4.1 4.7 (3.3-5.1) mmol/L Chloride 89 L 89 L (96-108) mmol/L Carbon Dioxide 20 L 20 L (22-30) mmol/L BUN 85 H 93 H (6-20) mg/dl Creatinine 6.9 H* 7.2 H* (0.7-1.2) mg/dl Glucose 246 H 245 H (70-105) mg/dL Calcium 8.5 L 8.4 L (8.6-10.4) mg/dl Adrenal panel 04/25/17 04/25/17 Range/Units 05:35 09:27 Sodium 126 L 126 L (133-145) mmol/L Potassium 4.1 4.7 (3.3-5.1) mmol/L Chloride 89 L 89 L (96-108) mmol/L Carbon Dioxide 20 L 20 L (22-30) mmol/L BUN 85 H 93 H (6-20) mg/dl Creatinine 6.9 H* 7.2 H* (0.7-1.2) mg/dl Glucose 246 H 245 H (70-105) mg/dL Calcium 8.5 L 8.4 L (8.6-10.4) mg/dl Total Bilirubin 0.2 (0.0-1.0) mg/dL AST 16 (0-37) U/l ALT 20 (0-40) U/l Alkaline Phosphatase 71 (39-117) U/L Total Protein 6.7 (5.9-8.4) gm/dL Albumin 2.7 L (3.2-5.2) gm/dL Assessment and Plan (1) Sepsis affecting skin Problem details: NECROTIZING skin and soft tissue infection. SEPSIS Uncontrolled diabetes, Anemia, CRF PLAN: HBOT Now later OR debridement / lavage and deep tissue biopsies and cultures. Status: Acute Assessment and plan: Progressing well from wound care point of view. Medical management by Hospitalist and CRF management by Case Management Director Will complete 10 HBOT total treatments, Later continue with wound care and monitor. Current Visit: Yes (2) Foot infection Problem details: For LOCAL WOUND CARE. OK to proceed with treatment of chronic kidney disease and start HD after insertion of dialysis catheter. Current wound management to continue. WIll follow patient from Wound Care point of view. He understands and agrees. HBO on HOLD today and until further notice. Spoke with Dr. Garcia and Wound Care HBO team. Status: Acute Current Visit: Yes (3) Severe sepsis Status: Acute Assessment and plan: Assessment: POD # 1. Progressing well. Hypothyroidism / Hypoproteinemia Pre albumin 14 / Anemia Hct 21 ( Dilutional ) Hypothyroidism , NIDDM A1c > 9 Wound and Blood cultures S. aureus Jones sensitive Plan ; Continue current treatment. HBOT and wound care. For dressing change and wound VAC placement on Monday04/21/2017. OK to get OOB and sit out in chair. Incentive spirometry q 2 hrly when awake, NWB Right foot and leg. OK to go to BR with FWW walker NWB Current Visit: Yes - Time Spent With Patient Total time spent is greater than 50% in coordination of care (as documented) at patient's floor/unit and/or counseling patient: 25 - 35 minutes
--- NOTE | 2017-04-25 16:48 | General Surgery Progress Note ---
Subjective Narrative: Note initiated : 04/25/17 at 4:44 pm Service Date, if different from initiated Date: [] Patient: Bart Pagan 57 y/o M admitted on 04/18/17 for Debridement of Wound Right Foot. Chief Complaint: [] Patient was scheduled to evaluated for HD today, however this was cancelled as patient had bradycardia without symptoms. Per nursing staff this will be reconsidered later. Patient's HBOT was cancelled today. I examined his right TMA stump wound when he was undergoing MIST therapy in ICU this evening. He is comfortable , HD stable and does NOT have any orthostatic symptoms. He is conversing well with nursing staff. His STONEY is unremarkable and with out any interval changes. The wound is pink / granulating and there is resolving flap edema. NO drainage and no odor noted. At this time wound care consists of daily BID cleansing with VASHE solution and MIST treatment. This is helping patient. Objective Temp Pulse Resp BP Pulse Ox 98.4 F 41 L 17 165/72 96 04/25/17 11:11 04/25/17 15:10 04/25/17 15:10 04/25/17 11:11 04/25/17 15:10 - Additional Data Intake & Output - Last 24 hours: Intake & Output 04/23/17 04/24/17 04/25/17 04/26/17 05:59 05:59 05:59 05:59 Intake Total 1585 / 1585 2770 / 2770 1910 / 1909 Output Total 1375 / 1375 175 / 175 395 / 395 Balance 210 / 210 2595 / 2595 1515 / 1515 2013 Weight 247 lb 244 lb 8 oz 246 lb 8 oz - Labs 04/25/17 05:35 04/25/17 09:27 Diabetes panel 04/25/17 04/25/17 Range/Units 05:35 09:27 Sodium 126 L 126 L (133-145) mmol/L Potassium 4.1 4.7 (3.3-5.1) mmol/L Chloride 89 L 89 L (96-108) mmol/L Carbon Dioxide 20 L 20 L (22-30) mmol/L BUN 85 H 93 H (6-20) mg/dl Creatinine 6.9 H* 7.2 H* (0.7-1.2) mg/dl Glucose 246 H 245 H (70-105) mg/dL Calcium 8.5 L 8.4 L (8.6-10.4) mg/dl AST 16 (0-37) U/l ALT 20 (0-40) U/l Alkaline Phosphatase 71 (39-117) U/L Total Protein 6.7 (5.9-8.4) gm/dL Albumin 2.7 L (3.2-5.2) gm/dL Triglycerides 170 H (<150) mg/dl Calcium panel 04/25/17 04/25/17 Range/Units 05:35 09:27 Calcium 8.5 L 8.4 L (8.6-10.4) mg/dl Phosphorus 5.5 H (2.7-4.5) mg/dL Albumin 2.7 L (3.2-5.2) gm/dL Pituitary panel 04/25/17 04/25/17 Range/Units 05:35 09:27 Sodium 126 L 126 L (133-145) mmol/L Potassium 4.1 4.7 (3.3-5.1) mmol/L Chloride 89 L 89 L (96-108) mmol/L Carbon Dioxide 20 L 20 L (22-30) mmol/L BUN 85 H 93 H (6-20) mg/dl Creatinine 6.9 H* 7.2 H* (0.7-1.2) mg/dl Glucose 246 H 245 H (70-105) mg/dL Calcium 8.5 L 8.4 L (8.6-10.4) mg/dl Adrenal panel 04/25/17 04/25/17 Range/Units 05:35 09:27 Sodium 126 L 126 L (133-145) mmol/L Potassium 4.1 4.7 (3.3-5.1) mmol/L Chloride 89 L 89 L (96-108) mmol/L Carbon Dioxide 20 L 20 L (22-30) mmol/L BUN 85 H 93 H (6-20) mg/dl Creatinine 6.9 H* 7.2 H* (0.7-1.2) mg/dl Glucose 246 H 245 H (70-105) mg/dL Calcium 8.5 L 8.4 L (8.6-10.4) mg/dl Total Bilirubin 0.2 (0.0-1.0) mg/dL AST 16 (0-37) U/l ALT 20 (0-40) U/l Alkaline Phosphatase 71 (39-117) U/L Total Protein 6.7 (5.9-8.4) gm/dL Albumin 2.7 L (3.2-5.2) gm/dL Assessment and Plan (1) Sepsis affecting skin Problem details: NECROTIZING skin and soft tissue infection. SEPSIS Uncontrolled diabetes, Anemia, CRF PLAN: HBOT Now later OR debridement / lavage and deep tissue biopsies and cultures. Status: Acute Assessment and plan: Progressing well from wound care point of view. Medical management by Hospitalist and CRF management by Buckle Stapler Will complete 10 HBOT total treatments, Later continue with wound care and monitor. Current Visit: Yes (2) Foot infection Problem details: For LOCAL WOUND CARE. OK to proceed with treatment of chronic kidney disease and start HD after insertion of dialysis catheter. Current wound management to continue. WIll follow patient from Wound Care point of view. He understands and agrees. HBO on HOLD today and until further notice. Spoke with Dr. Garcia and Wound Care HBO team. Status: Acute Current Visit: Yes (3) Severe sepsis Status: Acute Assessment and plan: Assessment: POD # 1. Progressing well. Hypothyroidism / Hypoproteinemia Pre albumin 14 / Anemia Hct 21 ( Dilutional ) Hypothyroidism , NIDDM A1c > 9 Wound and Blood cultures S. aureus Jones sensitive Plan ; Continue current treatment. HBOT and wound care. For dressing change and wound VAC placement on Monday04/21/2017. OK to get OOB and sit out in chair. Incentive spirometry q 2 hrly when awake, NWB Right foot and leg. OK to go to BR with FWW walker NWB Current Visit: Yes - Time Spent With Patient Total time spent is greater than 50% in coordination of care (as documented) at patient's floor/unit and/or counseling patient:
--- NOTE | 2017-04-25 16:53 | Nephrology Progress Note ---
Subjective Patient information: Note initiated : 04/25/17 at 4:50 pm Service Date, if different from initiated Date: [] Patient: Bart Pagan 57 y/o M admitted on 04/18/17 for Debridement of Wound Right Foot. Chief Complaint: [] Principal diagnosis: sepsis Interval history: multiple ongoing issues Renal function continues to get worse, work up so far suggest possible AIN from zosyn, antibiotic changed, pt also started on steroids pt this am started having profound bradycardia with EKG showing sinus bradycardia with occ skipped beats, called [facility] cardiology and Dr Hobbs suggested medical treatment given active wound infection pacemaker is not an option, he has elevated troponin, no CP, this is likelys ec to hypoperfusion per cardiology pt does have early uremic symptoms in the form of poor appetite, no SOB, no edema, no other complaints Pertinent ROS: as documented above Objective - Vital Signs Vital signs: Vital Signs Temp Pulse Pulse Resp BP Pulse Ox 04/25/17 15:10 41 L 17 96 04/25/17 11:11 98.4 F 20 165/72 94 04/25/17 07:38 52 L 97 04/25/17 07:09 98.1 F 58 L 16 158/82 93 04/25/17 03:40 98.3 F 59 L 16 162/82 96 04/25/17 00:20 98.4 F 50 L 16 164/70 91 04/24/17 19:30 98.5 F 55 L 12 168/64 92 Intake and Output 04/25/17 04/25/17 04/25/17 05:59 13:59 21:59 Intake Total 400 / 400 2013 Output Total Balance 370 / 370 2013 Intake: IV 2013 Sodium Chloride 0.9% 1, 864 / 864 000 ml @ 50 mls/hr IV . Q20H [facility] Rx#:[id number] INVanz 0.5 GM In Sodium 100 / 100 Chloride 0.9% 50 ml @ 100 mls/hr IV Q24H [facility] Rx#: [id number] Oral 400 / 400 Output: Void Amount Other: Meal Breakfast Percent of Meal Consumed 25% Feeding Ability Independent # Bowel Movements 1 Intake & Output: Intake & Output 04/25/17 04/25/17 04/25/17 05:59 13:59 21:59 Intake Total 400 / 400 2013 Output Total Balance 370 / 370 2013 Intake: IV 2013 Sodium Chloride 0.9% 1, 864 / 864 000 ml @ 50 mls/hr IV . Q20H [facility] Rx#:[id number] INVanz 0.5 GM In Sodium 100 / 100 Chloride 0.9% 50 ml @ 100 mls/hr IV Q24H [facility] Rx#: [id number] Oral 400 / 400 Output: Void Amount Other: Meal Breakfast Percent of Meal Consumed 25% Feeding Ability Independent # Bowel Movements 1 - General Appearance General appearance: appears started age, obese EENT: mucous membranes moist (pale conjunctiva ) Neck: no JVD Respiratory: clear Cardiology: no rub (bradycardic ), no edema Gastrointestinal: no tenderness, no guarding Integumentary: warm and dry Neurologic: alert and oriented x3 Musculoskeletal: no erythema, no clubbing Psychiatric: mood/affect appropriate - Lab 04/25/17 05:35 04/25/17 09:27 Most recent lab results Calcium 8.4 mg/dl (8.6-10.4) L 04/25/17 09:27 Phosphorus 5.5 mg/dL (2.7-4.5) H 04/25/17 05:35 Magnesium 2.9 mg/dL (1.6-2.5) H 04/25/17 09:27 Assessment and Plan (1) Acute on chronic renal failure renal function continues to get worse likely AIN, doubt post infectious GN but is a possibility, complements were normal, urine eos + no hyperkalemia, mild acidosis Anemia with stable Hb no s/o fluid excess Patient was going to get non tunneled cath today for initiation of dialysis but given bradycardia and after discussion with IR will hold off on procedure until we can get HR back to baseline he was started on theophylline per cardiology recommendation I will hold his IVF to prevent fluid excess I will follow and give him a dose of furosemide if urine output remains poor will continue with steroids for possible AIN, right now cannot get biopsy as pt was on rivaroxaban and also uremic so risk of bleeding is very high his zosyn is already changed to ertapenem plan was discussed with the patient and he agrees I will follow closely at present Status: Acute
[2017-04-25] MEDS ORDERED: FUROSEMIDE 100 MG/10 ML VIAL IV ONE (17:45)
--- NOTE | 2017-04-25 18:42 | Magnetic Resonance Report ---
CLINICAL INFORMATION: Previous transmetatarsal amputation for osteomyelitis. Possible recurrent osteomyelitis. TECHNIQUE: Sagittal, axial, coronal images through the right foot COMPARISON: Plain film examination dated 04/18/2017 FINDINGS: Distal tibia and fibula are negative. Talus and calcaneus are normal. There is a focal signal abnormality within the navicular. Appearance is not consistent with osteomyelitis. There is bone marrow edema within the cuboid. Cortex appears grossly intact. This is nonspecific. There is marrow edema within the medial, middle, and lateral cuneiform bones. No definite cortical destruction. This is also nonspecific. Osteomyelitis is not entirely excluded. There is fluid adjacent to the proximal right 1st, 2nd, 3rd metatarsals at the site of amputation. There is bone marrow edema with in the bones. Cortex is not well-defined. Osteomyelitis is possible. There is marrow edema within the proximal aspects of the 4th and 5th metatarsals, proximal to the amputation site. There appears to be soft tissue gas bubbles at the site of amputation. These may be better demonstrated with plain film examination. Findings may be postoperative but infection is possible. IMPRESSION: 1. Status post transmetatarsal amputation. Probable gas bubbles within soft tissues. Plain film examination may be of benefit. Gas bubbles may be postoperative or related to infection. 2. Bone marrow edema within the 1st through 5th metatarsal stumps. Findings are nonspecific. This may be reactive but osteomyelitis is possible. 3. Bone marrow edema within the cuboid and cuneiform bones as above. Interpreted and Authenticated by: Nakul Fuller 04/25/17
[2017-04-25] MEDS: SENNOSIDES/DOCUSATE SODIUM 1 TAB TABLET PO SCH (20:13)
[2017-04-25] MEDS: FAMOTIDINE/PF 20 MG/2 ML VIAL IV SCH (20:19)
[2017-04-25] MEDS: oxyCODONE HCL 5 MG TABLET PO PRN (22:02)
[2017-04-26 06:34] LABS: Basophils # (Auto) 0 K/mcL (0.0-0.3); Basophils % (Auto) 0.1 % (0.0-2.0); Eosinophils # (Auto) 0 K/mcL (0.0-0.7); Eosinophils % (Auto) 0 % (0.0-7.0); Granulocytes % (Auto) 88.6 % (38.0-78.0); Lymphocytes # (Auto) 0.8 K/mcL (1.5-4.8); Lymphocytes % (Auto) 6.4 % (15.5-49.0); Mean Cell Volume 87.6 fL (80.0-100.0); Mean Corpuscular HGB Conc 33.3 g/dL (31.0-36.0); Mean Corpuscular Hemoglobin 29.2 pg (26.0-34.0); Monocytes # (Auto) 0.6 K/mcL (0.1-0.9); Monocytes % (Auto) 4.9 % (1.0-12.0); Platelet Count 374 K/mcL (140-440); RBC 2.93 M/mcL (4.50-5.90); Red Cell Distribution Width 15.8 % (11.5-14.5)
[2017-04-26 07:40] LABS: ALT/SGPT 17 U/l (0-40); Albumin 2.8 gm/dL (3.2-5.2); Albumin/Globulin Ratio 0.7 (1.0-2.3); Alkaline Phosphatase 73 U/L (39-117); Bilirubin,Direct < 0.2 mg/dL (0.0-0.3); Blood Urea Nitrogen 97 mg/dl (6-20); Gamma Glutamyl Transpeptidase 58 U/L (8-61); Iron 27 mcg/dl (61-157); Magnesium 3.3 mg/dL (1.6-2.5); Transferrin % Saturation 15 % (20-50); Unsaturated Iron Binding 147 mcg/dL (112-346); Uric Acid 11.5 mg/dL (2.5-8.0)
[2017-04-26] MEDS: 0.9 % SODIUM CHLORIDE 10 ML SYRINGE IV SCH ×2 (08:14→13:56)
[2017-04-26] MEDS: DOCUSATE SODIUM 100 MG CAPSULE PO SCH ×2 (08:28→22:01)
[2017-04-26] MEDS: INSULIN LISPRO 1 UNIT/0.01 ML UNIT SQ SCH ×4 (08:28→22:04)
[2017-04-26] MEDS: CALCIUM ACETATE 667 MG CAPSULE PO SCH ×3 (08:28→17:34)
[2017-04-26] MEDS: FERROUS SULFATE 325 MG TABLET PO SCH ×4 (08:28→22:01)
[2017-04-26] MEDS: LEVOTHYROXINE 150 MCG TABLET PO SCH (08:28)
[2017-04-26] MEDS: ATORVASTATIN 20 MG TABLET PO SCH (08:29)
[2017-04-26] MEDS: MULTIVIT,THER IRON,CA,FA & MIN 1 TABLET PO SCH (08:29)
[2017-04-26] MEDS ORDERED: ERTAPENEM 0.5 GM in 0.9 % SODIUM CHLORIDE 50 ML IV SCH (09:00)
--- NOTE | 2017-04-26 09:04 | General Surgery Progress Note ---
Subjective Patient reports: other Narrative: Note initiated : 04/26/17 at 8:59 am Service Date, if different from initiated Date: [] Patient: Bart Pagan 57 y/o M admitted on 04/18/17 for Debridement of Wound Right Foot. Chief Complaint: [] Patient seen, MRI report and pictures reviewed, Nephrology input Dr. Garcia seen. Patient looks and feels better this morning, Had shower this AM. NO orthostatic complaints. VSS. Objective Temp Pulse Resp BP Pulse Ox 96.7 F L 46 L 16 157/69 94 04/26/17 08:31 04/26/17 07:59 04/26/17 07:59 04/26/17 07:59 04/26/17 04:00 VSS. No fever Face edema resolved, speech is clear, Rest of STONEY NO acute changes. Right foot TMA Stump with OPEN lateral wound I granulating. [place] granulations over 70 % and adherent central eschar and slough is demarcating well in response to VASHE based MIST therapy BID, Patient awaits HD catheter and HD for progressive renal failure. On Steroids Prednisolone 40 mg /day - Additional Data Intake & Output - Last 24 hours: Intake & Output 04/24/17 04/25/17 04/26/17 04/27/17 05:59 05:59 05:59 05:59 Intake Total 2770 / 2770 1910 / 1910 2214 / 2214 Output Total 175 / 175 395 / 395 0 / 0 200 / 200 Balance 2595 / 2595 1515 / 1515 2214 / 2214 -200 / -200 Weight 244 lb 8 oz 246 lb 8 oz 256 lb 6.4 oz - Labs 04/26/17 04:00 04/26/17 04:00 Diabetes panel 04/25/17 04/26/17 Range/Units 09:27 04:00 Sodium 126 L 127 L (133-145) mmol/L Potassium 4.7 4.5 (3.3-5.1) mmol/L Chloride 89 L 89 L (96-108) mmol/L Carbon Dioxide 20 L 18 L (22-30) mmol/L BUN 93 H 97 H (6-20) mg/dl Creatinine 7.2 H* 8.6 H* (0.7-1.2) mg/dl Glucose 245 H 216 H (70-105) mg/dL Calcium 8.4 L 8.6 (8.6-10.4) mg/dl AST 14 (0-37) U/l ALT 17 (0-40) U/l Alkaline Phosphatase 73 (39-117) U/L Total Protein 6.8 (5.9-8.4) gm/dL Albumin 2.8 L (3.2-5.2) gm/dL Triglycerides 111 (<150) mg/dl Calcium panel 04/25/17 04/26/17 Range/Units 09:27 04:00 Calcium 8.4 L 8.6 (8.6-10.4) mg/dl Phosphorus 7.6 H* (2.7-4.5) mg/dL Albumin 2.8 L (3.2-5.2) gm/dL Pituitary panel 04/25/17 04/26/17 Range/Units 09:27 04:00 Sodium 126 L 127 L (133-145) mmol/L Potassium 4.7 4.5 (3.3-5.1) mmol/L Chloride 89 L 89 L (96-108) mmol/L Carbon Dioxide 20 L 18 L (22-30) mmol/L BUN 93 H 97 H (6-20) mg/dl Creatinine 7.2 H* 8.6 H* (0.7-1.2) mg/dl Glucose 245 H 216 H (70-105) mg/dL Calcium 8.4 L 8.6 (8.6-10.4) mg/dl Adrenal panel 04/25/17 04/26/17 Range/Units 09:27 04:00 Sodium 126 L 127 L (133-145) mmol/L Potassium 4.7 4.5 (3.3-5.1) mmol/L Chloride 89 L 89 L (96-108) mmol/L Carbon Dioxide 20 L 18 L (22-30) mmol/L BUN 93 H 97 H (6-20) mg/dl Creatinine 7.2 H* 8.6 H* (0.7-1.2) mg/dl Glucose 245 H 216 H (70-105) mg/dL Calcium 8.4 L 8.6 (8.6-10.4) mg/dl Total Bilirubin 0.2 (0.0-1.0) mg/dL AST 14 (0-37) U/l ALT 17 (0-40) U/l Alkaline Phosphatase 73 (39-117) U/L Total Protein 6.8 (5.9-8.4) gm/dL Albumin 2.8 L (3.2-5.2) gm/dL Assessment and Plan (1) Sepsis affecting skin Problem details: NECROTIZING skin and soft tissue infection. SEPSIS Uncontrolled diabetes, Anemia, CRF PLAN: HBOT Now later OR debridement / lavage and deep tissue biopsies and cultures. Status: Acute Assessment and plan: Progressing well from wound care point of view. Medical management by Hospitalist and CRF management by Nursing Clinical Director Will complete 10 HBOT total treatments, Later continue with wound care and monitor. Current Visit: Yes (2) Foot infection Problem details: For LOCAL WOUND CARE. OK to proceed with treatment of chronic kidney disease and start HD after insertion of dialysis catheter. Current wound management to continue. WIll follow patient from Wound Care point of view. He understands and agrees. HBO on HOLD today and until further notice. Spoke with Dr. Garcia and Wound Care HBO team. Status: Acute Current Visit: Yes (3) Severe sepsis Status: Acute Assessment and plan: Assessment: POD # 1. Progressing well. Hypothyroidism / Hypoproteinemia Pre albumin 14 / Anemia Hct 21 ( Dilutional ) Hypothyroidism , NIDDM A1c > 9 Wound and Blood cultures S. aureus Jones sensitive Plan ; Continue current treatment. HBOT and wound care. For dressing change and wound VAC placement on Monday04/21/2017. OK to get OOB and sit out in chair. Incentive spirometry q 2 hrly when awake, NWB Right foot and leg. OK to go to BR with FWW walker NWB Current Visit: Yes - Time Spent With Patient Total time spent is greater than 50% in coordination of care (as documented) at patient's floor/unit and/or counseling patient: Assessment: Satisfactory progress from wound care point of view. Plan: Continue current wound MIST therapy BID. IV antibiotics per Hospitalist. For HBO when cleared by Nephrology and IM. Following patient in hospital . 15 - 24 minutes
[2017-04-26] MEDS: INSULIN GLARGINE, HUMAN 1 UNIT/0.01 ML SQ SCH ×2 (09:26→22:03)
[2017-04-26] MEDS: ERTAPENEM 0.5 GM in 0.9 % SODIUM CHLORIDE 50 ML IV SCH (09:27)
[2017-04-26] MEDS: THEOPHYLLINE ANHYDROUS 400 MG TAB.XL.24H PO SCH ×2 (09:38→22:04)
--- NOTE | 2017-04-26 11:26 | Internal Med Progress Note ---
Medical - PN: Subj Patient information: Note initiated : 04/26/17 at 11:22 am Service Date, if different from initiated Date: [] Patient: Bart Pagan a 57 y/o M admitted on 04/18/17 for Debridement of Wound Right Foot. Chief Complaint: [] Interval history: Mr. Pagan is a 57 year old M who underwentright foot metatarsal amputation on March 07. Patient has been recovering well and has been following up with wound care. On Monday patient saw on care physician and underwent treatment along with 2 stitches. Over the weekend patient has noted increasing swelling and pain discharge. By Monday patient started experiencing shaking chills and drenching sweats long with excessive exhaustion. Today at work patient was unable to bear weight due to increasing pain and swelling along with associated fever. He notices bandage soaked in bloody discharge. he is afebrile 102. e was subsequently directed by Dr. Cameron's officeto ER. initial workup was significant for elevated white count along with fever and sepsis. hospitalist service was consulted after case was discussed with Dr. Maresor admission initiation of antibiotics and likely initiation of hyperbaric treatments. at the time of examination patient is alert oriented. He denies any active distress except for amputation stump pain and swelling. he endorses to fevers. Denies diarrhea dysuria headache photophobia skin rash or joint pain or weight loss. 04/19: Pt seen examined, febrile overnight, blood cx positive, on vancomycin, antibiotics changed from rocephin ./ clinda to zosyn. Patient on pn tylenol. HBOT rx done today and he is s/p wound debridement by Dr Mccauley. Plan to continue antibiotics for now. LIkely staph related infection, but given DM wound will cover from gram neg as well as anerobic infections. Patient otherwise is doing well, denies any acute complaints besdies pain in the leg and some mechanical back discomfort. his labs show worsening renal functino, nephrology following, IV fluid rate increased, and torsemide held. 04/20-patient ongoing hyperbaric treatment. Pansensitive MSSA. Continue Zosyn. Ongoing wound and osteomyelitis management by Dr. Cameron.post debridement day 1. Wound care physician plans to continue HBO reatment/wound VAC placement. Creatinine 4.9. renal issues managed by nephrology. Hemoglobin 7.3. Transfuse 2 units PRBC. Surveillance cultures pending. ok count 11.9. persistent bandemia. vernight persistently shaking chills fever. MAXIMUM TEMPERATURE 101. 9/1. Patient doing well. No overnight events and rested well. Patient however is anxious about treatment plan given underlying osteomyelitis he would rather want further amputation to remove infected bone. I explained the current treatment is being directed as per wound care physician's ecommendations including debridement/hBO/ IV antibiotics. nursing staff expressed concerns about elevated blood sugars. Patient restarted on 20 twice a day Lantus. Improved fevers shaking chills. Tolerating hyperbaric oxygen treatments well. MSSA on blood culture. Surveillance blood cultures negative so far. white count down to 11.7. BUN and 73 creatinine 4.7.off vancomycin. Continue Zosyn. 04/22: Patient seen examined, no acute overnight issues, patient sitting in the chair and is tolerating po diet well, He has a wound vac on by Dr Mccauley, plans for contiued HBOT for now. likely needs 10 treatments, next scheduled for monday and last treatment likely Monday. Continue with present antibiotics. labs stable. creat improving to 4.5, nephrology following continue to monitor. 04/23: Pt seen examined, still has low grade leucocytosis but no other symptoms, etiology steroids? He remains on antibiotics as per his microbiology. Lab show slight worsening in creatinine to 4.7 today. clinically not volume overloaded, will give 1 L normal Saline and reassess in AM. continue IV Abx, Wound care plan as per wound care surgery. 04/24: patient seen examined, no acute ovenright issues reported, but the patients blood work shows rising WBC count, pt feels that his infection may be coming back, and the patient has significantly worsening renal function. Creat is now 5.7 despite 1L fluid given yesterday. The patients UA has RBC and few wbc, culture pending, patient cxr shows some atelectasis, At this time I am not sure if the patient wound is completely debrided. I reviewed with Case with Dr Mccauley, and plan to get an MRI of the foot for further evaluation. Dr Garcia evaluated the patient and patients workup is pending. etiology of hematuria? Pt did not have a carrero, renal usg ordered. Antibiotics changed from zosyn to ertapenum. 04/25: patient seen, examined, overnight events noted, patient has no acute complaints but is feeling much more tired and weak. The patient also reports some amount of nausea. No vomiting. Denies any chest pain, denies any shortness of breath. Denies any palpitations. The patient's creatinine is worsening, the patient was Placed on telemetry and the plan was to initiate dialysis. On telemetry, it was noted that the patient had significant bradycardia with heart rates and 28-40. The patient does have some sinus pauses. Patient's troponin was elevated at 0.22, EKG reveals sinus bradycardia. I called Dr. Gonzalez was the patient transporter nutritional yeast supervisor at [facility], as well as the patient's primary patient transporter. He reviewed the patient's history and is aware of the chronic bradycardia issues, but was not aware of the heart. It was this low. Given that the patient has an active infection He noted that the patient is not a candidate for a pacemaker placement at this point in time. He noted that the troponin is likely secondary to hypoperfusion and no specific management was warranted for same. The patient has had a negative stress test in 2014. He advised to start the patient on theophylline 200 mg twice a day to see if it helps with the bradycardia. He also said to use isoproterenol if heart rate drops too low or during a procedure if needed given very low heart rate, but no contraindication for any procedure. Did not think pt needed to be transferred to higher center. 04/26: patient seen and examined, doing well this morning, denied any nausea, vomiting, abdominal pain or chest pain. Denies any palpitations. Labs reviewed with him. Creatinine continues to worsen. Patient did have a bowel movement and urine output today around 240cc dark urine, he feels better nwo that the HR is better, now back > 40 Plan for placement of non tunneled catheter today and start on Hemodialysis. Continue steroids for possible drug induced renal failure continue with IV antibiotics for infection. MRI reviewed, no acute infection, according to Surgery. Pertinent ROS: Denies headache, dizziness Denies chest pain, palpitations Denies cough or shortness of breath Denies abdominal pain, nausea or vomiting. - Constitutional Vitals: Vital Signs Temp Pulse Resp BP Pulse Ox 96.7 F L 47 L 16 170/67 94 04/26/17 08:31 04/26/17 09:30 04/26/17 07:59 04/26/17 09:30 04/26/17 04:00 Period Temp Pulse Resp BP Sys/Mancini Pulse Ox Last 24 Hr 96.7 F-100.0 F 41-48 12-20 154-177/67-81 93-98 Intake and Output 04/25/17 04/26/17 04/26/17 21:59 05:59 13:59 Intake Total 0 / 0 200 / 200 0 / 0 Output Total 0 / 0 240 / 240 Balance 0 / 0 200 / 200 -240 / -240 Weight 256 lb 6.4 oz Intake & Output: Intake & Output 04/25/17 04/26/17 04/26/17 21:59 05:59 13:59 Intake Total 0 / 0 200 / 200 0 / 0 Output Total 0 / 0 240 / 240 Balance 0 / 0 200 / 200 -240 / -240 Weight 256 lb 6.4 oz Intake: Oral 0 / 0 200 / 200 0 / 0 Output: Void Amount 0 / 0 240 / 240 Other: Percent of Meal Consumed 0% # Voids 1 # Bowel Movements 1 Exam: Constitutional; Afebrile, cooperative, alert, not in distress. Eyes- No icterus, , No periorbital swelling Ears- Ext ear normal, hearing normal to conversation. Neck- Midline trachea, supple Respiratory system: Air Entry equal on both sides, No crackles or wheezing, no rhonchi. CVS- Rate rhythm regular but bradycardic , S1,S2 heard, no gallop, no rub. Abdomen- Soft nontender abdomen, no organomegaly, no tenderness, no guarding or rigidity, MANAGER DISH- AOOx3, moving all extremities, no gross focal deficit noted. Medical - PN: Obj Da - Labs CBC & Chem 7: 04/26/17 04:00 04/26/17 04:00 Labs: Abnormal Lab Results 04/26/17 04/26/17 04/26/17 04:00 04:00 04:00 WBC 13.1 H RBC 2.93 L Hgb 8.6 L Hct 25.6 L RDW 15.8 H Gran % 88.6 H Lymph % (Auto) 6.4 L Gran # 11.6 H Lymph # (Auto) 0.8 L ESR Sodium 127 L Chloride 89 L Carbon Dioxide 18 L Anion Gap 20.0 H BUN 97 H Creatinine 8.6 H* Glucose 216 H Uric Acid 11.5 H Calcium Phosphorus 7.6 H* Magnesium 3.3 H Iron 27 L TIBC 174 L Transferrin % Sat 15 L Lactate Dehydrogenase 280 H Troponin T 0.21 H* C-Reactive Protein Albumin 2.8 L Globulin 4.0 H Albumin/Globulin Ratio 0.7 L Triglycerides Urine Protein Urine Glucose (UA) Urine Occult Blood Urine RBC Urine WBC Hyaline Casts U [place] Prot/Creat Ratio 04/25/17 04/25/17 04/25/17 16:06 09:27 09:27 WBC RBC Hgb Hct RDW Gran % Lymph % (Auto) Gran # Lymph # (Auto) ESR Sodium Chloride Carbon Dioxide Anion Gap BUN Creatinine Glucose Uric Acid Calcium Phosphorus Magnesium 2.9 H Iron TIBC Transferrin % Sat Lactate Dehydrogenase Troponin T 0.22 H* 0.22 H* C-Reactive Protein Albumin Globulin Albumin/Globulin Ratio Triglycerides Urine Protein Urine Glucose (UA) Urine Occult Blood Urine RBC Urine WBC Hyaline Casts U [place] Prot/Creat Ratio 04/25/17 04/25/17 04/25/17 09:27 05:35 05:35 WBC 13.9 H RBC 2.99 L Hgb 8.6 L Hct 26.1 L RDW 15.6 H Gran % 86.9 H Lymph % (Auto) 7.5 L Gran # 12.1 H Lymph # (Auto) 1.0 L ESR Sodium 126 L 126 L Chloride 89 L 89 L Carbon Dioxide 20 L 20 L Anion Gap 17.0 H 17.0 H BUN 93 H 85 H Creatinine 7.2 H* 6.9 H* Glucose 245 H 246 H Uric Acid 9.8 H Calcium 8.4 L 8.5 L Phosphorus 5.5 H Magnesium 2.9 H Iron TIBC Transferrin % Sat Lactate Dehydrogenase Troponin T C-Reactive Protein Albumin 2.7 L Globulin 4.0 H Albumin/Globulin Ratio 0.7 L Triglycerides 170 H Urine Protein Urine Glucose (UA) Urine Occult Blood Urine RBC Urine WBC Hyaline Casts U [place] Prot/Creat Ratio 04/24/17 04/24/17 04/24/17 17:48 08:13 05:40 WBC RBC Hgb Hct RDW Gran % Lymph % (Auto) Gran # Lymph # (Auto) ESR Sodium Chloride Carbon Dioxide Anion Gap BUN Creatinine Glucose Uric Acid Calcium Phosphorus Magnesium Iron TIBC Transferrin % Sat Lactate Dehydrogenase Troponin T C-Reactive Protein 7.0 H Albumin Globulin Albumin/Globulin Ratio Triglycerides Urine Protein >=500 A Urine Glucose (UA) >=500 A Urine Occult Blood >=1.0 A Urine RBC > 182 H Urine WBC 14 H Hyaline Casts 8 H U [place] Prot/Creat Ratio 9.50 H 04/24/17 04/24/17 04/24/17 05:40 05:40 05:40 WBC 13.3 H RBC 3.07 L Hgb 8.9 L Hct 26.9 L RDW 15.2 H Gran % 81.9 H Lymph % (Auto) 9.5 L Gran # 10.9 H Lymph # (Auto) 1.3 L ESR > 120 H Sodium 130 L Chloride 92 L Carbon Dioxide Anion Gap BUN 81 H Creatinine 5.7 H* Glucose 210 H Uric Acid Calcium Phosphorus Magnesium Iron TIBC Transferrin % Sat Lactate Dehydrogenase Troponin T C-Reactive Protein Albumin 2.8 L Globulin 4.0 H Albumin/Globulin Ratio 0.7 L Triglycerides Urine Protein Urine Glucose (UA) Urine Occult Blood Urine RBC Urine WBC Hyaline Casts U [place] Prot/Creat Ratio Meds: Medications Acetaminophen (Tylenol) 650 mg PO Q4-6HP PRN PRN Reason: PAIN/FEVER > 101 Allopurinol (Zyloprim) 200 mg PO QDAY [facility] Atorvastatin Calcium (Lipitor) 40 mg PO DAILY [facility] Last Admin: 04/26/17 08:29 Dose: Not Given Calcium Acetate (Phoslo) 667 mg PO TIDCC [facility] Last Admin: 04/26/17 08:28 Dose: Not Given Dextrose (Dextrose 50%) 0 ml IV UD PRN PRN Reason: Hypoglycemia Diagnostic Test (Pha) (Accu-Chek) 1 each FS ACHS [facility] Last Admin: 04/26/17 08:14 Dose: 1 each Docusate Sodium (Colace) 100 mg PO BID [facility] Last Admin: 04/26/17 08:28 Dose: Not Given Famotidine (Pepcid) 20 mg IV HS [facility] Last Admin: 04/25/17 20:19 Dose: 20 mg Ferrous Sulfate (Ferrous Sulfate) 325 mg PO [facility] Last Admin: 04/26/17 08:28 Dose: Not Given Glucose (Insta-Glucose) 15 gm PO PRN PRN PRN Reason: Hypoglycemia Guaifenesin/Codeine Phosphate (Robitussin Ac) 10 ml PO Q4HP PRN PRN Reason: Cough Heparin Sodium (Porcine) (Heparin Flush) 2 ml IV Q12 [facility] Last Admin: 04/26/17 10:32 Dose: 2 ml Hydralazine HCl (Apresoline) 25 mg PO BIDP PRN PRN Reason: Hypertension Magnesium Sulfate (Magnesium Sulfate) 2 gm in 50 mls @ 50 mls/hr IV UD PRN PRN Reason: MG = or < 1.7 Acetaminophen (Ofirmev) 1,000 mg in 100 mls @ 200 mls/hr IV Q6HP PRN PRN Reason: PAIN/FEVER > 101 Ertapenem 0.5 gm/ Sodium (Chloride) 50 mls @ 100 mls/hr IV Q24H [facility] Last Admin: 04/26/17 09:27 Dose: 100 mls/hr Insulin Glargine (Lantus) 25 unit SQ BID [facility] Last Admin: 04/26/17 09:26 Dose: 25 unit Insulin Human Lispro (Humalog) 0 unit SQ ACHS [facility] PRN Reason: Protocol Last Admin: 04/26/17 08:28 Dose: Not Given Iron Carb/Multivit/Leather Cartridge Belt Maker/Folic Acid (Multivitamin W/Minerals) 1 tab PO DAILY [facility] Last Admin: 04/26/17 08:29 Dose: Not Given Levothyroxine Sodium (Synthroid) 300 mcg PO QAMAC [facility] Last Admin: 04/26/17 08:28 Dose: Not Given Lorazepam (Ativan) 1 mg PO DAILYP PRN PRN Reason: ANXIETY/SEDATION Morphine Sulfate (Morphine) 2 mg IV TIDP PRN PRN Reason: Pain Ondansetron HCl (Zofran) 4 mg IV Q4-6HP PRN PRN Reason: Nausea And Vomiting Oxycodone HCl (Roxicodone) 5 mg PO Q4HP PRN PRN Reason: Pain Last Admin: 04/25/17 22:02 Dose: 5 mg Potassium Chloride (Klor-Con) 40 meq PO DAILYP PRN PRN Reason: K+ < 3.5 [facility]) [facility] Senna/Docusate Sodium (Senna Plus Tablet) 1 tab PO HS [facility] Last Admin: 04/25/17 20:13 Dose: Not Given Sodium Chloride (Saline Flush) 10 ml IV UD PRN PRN Reason: FLUSH Sodium Chloride (Saline Flush) 10 ml IV Q8 [facility] Last Admin: 04/26/17 08:14 Dose: 10 ml Theophylline (Uniphyll) 200 mg PO BID [facility] Last Admin: 04/26/17 09:38 Dose: 200 mg Medical - PN: A/P - Time Spent With Patient Total time spent is greater than 50% in coordination of care (as documented) at patient's floor/unit and/or counseling patient: - Narrative A/P Narrative: A/P Infected Diabetic Ulcer: s/p debridement, MSSA in the wound and blood cx, was on zosyn switched to ertapenum ( zosyn as cause of renal failure? ) MRI of the foot reviewed, no residual infection as per surgery. off wound vac, hold off on HBOT till patient is better. Staph Bacteremia: MSSA On ertapenum now. repeat cx neg, echo neg. Bradycardia/ Elevated trop: Discussed with Dr Hobbs, start on theophylline, prn isopreul, will need pacemaker in the senior care but cannot get one due to infection. Amlodipine stopped can in some cases cause bradycardia. HR better now. but still bradycardic. Plan to monitor. LA on CKD: Creat is rising, pt to get cath and HD today nephrology following. Osteomyelitis of the foot: Will need antibiotics for 6 weeks, total, Will need ID follow up as outpatient, Sepsis ? wbc elevation could be secondary to steroids, sepsis vs drug induced AIN, monitor for now. wbc slightly better today. DM type 2 on insulin, uncontrolled :glucose on high end but ok given need for high glucose for HBOT. monitor for now, uptitrate insulin if needed. afib: rate controlled, on anticoagulation H/o DVT on Rivaroxaban held now for procedure. will have to consider alternative anti coagulation agent, eliquis of coumadin given renal failure. Anemia: due to infection, ckd, and post op loss? s/p trasnfusion, hb stable now , monitor. Hypothyroidism: Continue levothyroxoine Full code Medical - PN: Qual - VTE Deep Vein Thrombosis/Pulmonary Embolism Present on Admission: No
[2017-04-26] MEDS: predniSONE 20 MG TABLET PO SCH (12:33)
--- NOTE | 2017-04-26 12:51 | Nephrology Progress Note ---
Subjective Patient information: Note initiated : 04/26/17 at 12:48 pm Service Date, if different from initiated Date: [] Patient: Bart Pagan 57 y/o M admitted on 04/18/17 for Debridement of Wound Right Foot. Chief Complaint: [] Principal diagnosis: sepsis Interval history: HR better with theophylline patient feels better still has poor appetite no SOB, CP No edema yet oliguric, renal function continues to get worse Pertinent ROS: as above Objective - Vital Signs Vital signs: Vital Signs Temp Pulse Pulse Resp BP BP Pulse Ox 04/26/17 12:07 97.2 F 52 L 20 183/72 95 04/26/17 11:41 98 04/26/17 09:30 47 L 46 L 154/67 170/67 04/26/17 08:31 96.7 F L 04/26/17 07:59 46 L 16 157/69 04/26/17 04:00 98.6 F 48 L 12 177/75 94 04/26/17 00:00 100.0 F H 12 156/67 98 04/25/17 20:00 97.9 F 20 167/81 93 04/25/17 16:00 98.9 F 20 163/71 98 04/25/17 15:10 41 L 17 96 Intake and Output 04/25/17 04/26/17 04/26/17 21:59 05:59 13:59 Intake Total 0 / 0 200 / 200 0 / 0 Output Total 0 / 0 240 / 240 Balance 0 / 0 200 / 200 -240 / -240 Intake: Oral 0 / 0 200 / 200 0 / 0 Output: Void Amount 0 / 0 240 / 240 Other: Percent of Meal Consumed 0% # Voids 1 # Bowel Movements 1 Weight 256 lb 6.4 oz Intake & Output: Intake & Output 04/25/17 04/26/17 04/26/17 21:59 05:59 13:59 Intake Total 0 / 0 200 / 200 0 / 0 Output Total 0 / 0 240 / 240 Balance 0 / 0 200 / 200 -240 / -240 Weight 256 lb 6.4 oz Intake: Oral 0 / 0 200 / 200 0 / 0 Output: Void Amount 0 / 0 240 / 240 Other: Percent of Meal Consumed 0% # Voids 1 # Bowel Movements 1 - General Appearance General appearance: appears started age, obese EENT: mucous membranes moist Neck: no JVD Respiratory: clear Cardiology: no rub, no edema, normal S1, normal S2 (bradycardic) Gastrointestinal: no tenderness, no guarding Integumentary: no rash, warm and dry Neurologic: no asterixis, alert and oriented x3 Musculoskeletal: no deformities, no erythema Psychiatric: mood/affect appropriate - Lab 04/26/17 04:00 04/26/17 04:00 Most recent lab results Calcium 8.6 mg/dl (8.6-10.4) 04/26/17 04:00 Phosphorus 7.6 mg/dL (2.7-4.5) H* 04/26/17 04:00 Magnesium 3.3 mg/dL (1.6-2.5) H 04/26/17 04:00 Assessment and Plan (1) Acute on chronic renal failure renal function continues to get worse likely AIN, doubt post infectious GN but is a possibility, complements were normal, urine eos + no hyperkalemia, mild acidosis Anemia with stable Hb no s/o fluid excess continue oral prednisone HD today, will start with 2 hrs, today using revaclear 300 dialyser, 2K/2.5Ca dialysate and UF goal of 0-500 cc, will use 130 sodium to prevent overcorrectiono f his hyponatremia, low flow HD today to prevent dialysis dysequilibrium will start oral iron, tsat is only 15%, he will need IV iron as well but will wait for wound healing ct phoslo dose meds to dialysis will plan HD tomorrow will plan for TCC next week Will follow along Status: Acute
[2017-04-26] MEDS: ALLOPURINOL 100 MG TABLET PO SCH (17:34)
[2017-04-26] MEDS: FAMOTIDINE/PF 20 MG/2 ML VIAL IV SCH (22:00)
[2017-04-26] MEDS: oxyCODONE HCL 5 MG TABLET PO PRN (22:01)
[2017-04-26] MEDS: SENNOSIDES/DOCUSATE SODIUM 1 TAB TABLET PO SCH (22:01)
[2017-04-27] MEDS: 0.9 % SODIUM CHLORIDE 10 ML SYRINGE IV SCH ×4 (00:33→21:06)
[2017-04-27 06:22] LABS: Basophils # (Auto) 0 K/mcL (0.0-0.3); Basophils % (Auto) 0 % (0.0-2.0); Eosinophils # (Auto) 0.1 K/mcL (0.0-0.7); Eosinophils % (Auto) 0.7 % (0.0-7.0); Granulocytes % (Auto) 91.4 % (38.0-78.0); Lymphocytes # (Auto) 0.5 K/mcL (1.5-4.8); Lymphocytes % (Auto) 5.2 % (15.5-49.0); Mean Cell Volume 86.8 fL (80.0-100.0); Mean Corpuscular HGB Conc 33.8 g/dL (31.0-36.0); Mean Corpuscular Hemoglobin 29.4 pg (26.0-34.0); Monocytes # (Auto) 0.2 K/mcL (0.1-0.9); Monocytes % (Auto) 2.7 % (1.0-12.0); Platelet Count 402 K/mcL (140-440); RBC 3.43 M/mcL (4.50-5.90)
[2017-04-27 07:27] LABS: ALT/SGPT 16 U/l (0-40); Albumin/Globulin Ratio 0.8 (1.0-2.3); Alkaline Phosphatase 70 U/L (39-117); Bilirubin,Direct < 0.2 mg/dL (0.0-0.3); Blood Urea Nitrogen 83 mg/dl (6-20); Gamma Glutamyl Transpeptidase 58 U/L (8-61); Uric Acid 9.4 mg/dL (2.5-8.0)
[2017-04-27] MEDS: INSULIN LISPRO 1 UNIT/0.01 ML UNIT SQ SCH ×4 (07:50→21:04)
[2017-04-27] MEDS: CALCIUM ACETATE 667 MG CAPSULE PO SCH ×3 (07:52→16:59)
[2017-04-27] MEDS: FERROUS SULFATE 325 MG TABLET PO SCH ×4 (07:52→21:03)
[2017-04-27] MEDS: predniSONE 20 MG TABLET PO SCH (07:52)
[2017-04-27] MEDS: LEVOTHYROXINE 150 MCG TABLET PO SCH (07:57)
[2017-04-27] MEDS ORDERED: FERROUS GLUCONATE 324 MG TABLET PO SCH (08:00)
[2017-04-27] MEDS: DOCUSATE SODIUM 100 MG CAPSULE PO SCH ×2 (08:45→21:03)
[2017-04-27] MEDS: ERTAPENEM 0.5 GM in 0.9 % SODIUM CHLORIDE 50 ML IV SCH (08:47)
[2017-04-27] MEDS: MULTIVIT,THER IRON,CA,FA & MIN 1 TABLET PO SCH (08:48)
[2017-04-27] MEDS: THEOPHYLLINE ANHYDROUS 400 MG TAB.XL.24H PO SCH ×2 (08:48→21:05)
[2017-04-27] MEDS: ATORVASTATIN 20 MG TABLET PO SCH (08:48)
[2017-04-27] MEDS: ALLOPURINOL 100 MG TABLET PO SCH (08:48)
[2017-04-27] MEDS: INSULIN GLARGINE, HUMAN 1 UNIT/0.01 ML SQ SCH ×2 (08:49→21:04)
[2017-04-27] MEDS: hydrALAZINE 20 MG/ML VIAL IV PRN (09:08)
[2017-04-27] MEDS: oxyCODONE HCL 5 MG TABLET PO PRN ×2 (11:57→21:02)
--- NOTE | 2017-04-27 12:03 | Internal Med Progress Note ---
Medical - PN: Subj Patient information: Note initiated : 04/27/17 at 11:55 am Service Date, if different from initiated Date: [] Patient: Bart Pagan a 57 y/o M admitted on 04/18/17 for Debridement of Wound Right Foot. Chief Complaint: [] Interval history: Mr. Pagan is a 57 year old M who underwentright foot metatarsal amputation on March 07. Patient has been recovering well and has been following up with wound care. On Monday patient saw on care physician and underwent treatment along with 2 stitches. Over the weekend patient has noted increasing swelling and pain discharge. By Monday patient started experiencing shaking chills and drenching sweats long with excessive exhaustion. Today at work patient was unable to bear weight due to increasing pain and swelling along with associated fever. He notices bandage soaked in bloody discharge. he is afebrile 102. e was subsequently directed by Dr. Cameron's officeto ER. initial workup was significant for elevated white count along with fever and sepsis. hospitalist service was consulted after case was discussed with Dr. Maresor admission initiation of antibiotics and likely initiation of hyperbaric treatments. at the time of examination patient is alert oriented. He denies any active distress except for amputation stump pain and swelling. he endorses to fevers. Denies diarrhea dysuria headache photophobia skin rash or joint pain or weight loss. 04/19: Pt seen examined, febrile overnight, blood cx positive, on vancomycin, antibiotics changed from rocephin ./ clinda to zosyn. Patient on pn tylenol. HBOT rx done today and he is s/p wound debridement by Dr Mccauley. Plan to continue antibiotics for now. LIkely staph related infection, but given DM wound will cover from gram neg as well as anerobic infections. Patient otherwise is doing well, denies any acute complaints besdies pain in the leg and some mechanical back discomfort. his labs show worsening renal functino, nephrology following, IV fluid rate increased, and torsemide held. 04/20-patient ongoing hyperbaric treatment. Pansensitive MSSA. Continue Zosyn. Ongoing wound and osteomyelitis management by Dr. Cameron.post debridement day 1. Wound care physician plans to continue HBO reatment/wound VAC placement. Creatinine 4.9. renal issues managed by nephrology. Hemoglobin 7.3. Transfuse 2 units PRBC. Surveillance cultures pending. ok count 11.9. persistent bandemia. vernight persistently shaking chills fever. MAXIMUM TEMPERATURE 101. 9/1. Patient doing well. No overnight events and rested well. Patient however is anxious about treatment plan given underlying osteomyelitis he would rather want further amputation to remove infected bone. I explained the current treatment is being directed as per wound care physician's ecommendations including debridement/hBO/ IV antibiotics. nursing staff expressed concerns about elevated blood sugars. Patient restarted on 20 twice a day Lantus. Improved fevers shaking chills. Tolerating hyperbaric oxygen treatments well. MSSA on blood culture. Surveillance blood cultures negative so far. white count down to 11.7. BUN and 73 creatinine 4.7.off vancomycin. Continue Zosyn. 04/22: Patient seen examined, no acute overnight issues, patient sitting in the chair and is tolerating po diet well, He has a wound vac on by Dr Mccauley, plans for contiued HBOT for now. likely needs 10 treatments, next scheduled for monday and last treatment likely Monday. Continue with present antibiotics. labs stable. creat improving to 4.5, nephrology following continue to monitor. 04/23: Pt seen examined, still has low grade leucocytosis but no other symptoms, etiology steroids? He remains on antibiotics as per his microbiology. Lab show slight worsening in creatinine to 4.7 today. clinically not volume overloaded, will give 1 L normal Saline and reassess in AM. continue IV Abx, Wound care plan as per wound care surgery. 04/24: patient seen examined, no acute ovenright issues reported, but the patients blood work shows rising WBC count, pt feels that his infection may be coming back, and the patient has significantly worsening renal function. Creat is now 5.7 despite 1L fluid given yesterday. The patients UA has RBC and few wbc, culture pending, patient cxr shows some atelectasis, At this time I am not sure if the patient wound is completely debrided. I reviewed with Case with Dr Mccauley, and plan to get an MRI of the foot for further evaluation. Dr Garcia evaluated the patient and patients workup is pending. etiology of hematuria? Pt did not have a carrero, renal usg ordered. Antibiotics changed from zosyn to ertapenum. 04/25: patient seen, examined, overnight events noted, patient has no acute complaints but is feeling much more tired and weak. The patient also reports some amount of nausea. No vomiting. Denies any chest pain, denies any shortness of breath. Denies any palpitations. The patient's creatinine is worsening, the patient was Placed on telemetry and the plan was to initiate dialysis. On telemetry, it was noted that the patient had significant bradycardia with heart rates and 28-40. The patient does have some sinus pauses. Patient's troponin was elevated at 0.22, EKG reveals sinus bradycardia. I called Dr. Gonzalez was the business strategist cotton chopper at [facility], as well as the patient's primary business strategist. He reviewed the patient's history and is aware of the chronic bradycardia issues, but was not aware of the heart. It was this low. Given that the patient has an active infection He noted that the patient is not a candidate for a pacemaker placement at this point in time. He noted that the troponin is likely secondary to hypoperfusion and no specific management was warranted for same. The patient has had a negative stress test in 2014. He advised to start the patient on theophylline 200 mg twice a day to see if it helps with the bradycardia. He also said to use isoproterenol if heart rate drops too low or during a procedure if needed given very low heart rate, but no contraindication for any procedure. Did not think pt needed to be transferred to higher center. 04/26: patient seen and examined, doing well this morning, denied any nausea, vomiting, abdominal pain or chest pain. Denies any palpitations. Labs reviewed with him. Creatinine continues to worsen. Patient did have a bowel movement and urine output today around 240cc dark urine, he feels better nwo that the HR is better, now back > 40 Plan for placement of non tunneled catheter today and start on Hemodialysis. Continue steroids for possible drug induced renal failure continue with IV antibiotics for infection. MRI reviewed, no acute infection, according to Surgery. 04/27: atient seen and examined, doing well, no acute complaints. Had dialysis done yesterday. Heart rate is better. In the 50s to 60s. He is scheduled to have dialysis again this afternoon. He is able to tolerate by mouth well. No diarrhea, no constipation. Did take some urine today. Pertinent ROS: Denies headache, dizziness Denies chest pain, palpitations Denies cough or shortness of breath Denies abdominal pain, nausea or vomiting. - Constitutional Vitals: Vital Signs Temp Pulse Resp BP Pulse Ox 96.9 F L 61 18 161/71 95 04/27/17 11:47 04/27/17 11:47 04/27/17 11:47 04/27/17 11:47 04/27/17 11:47 Period Temp Pulse Resp BP Sys/Mancini Pulse Ox Last 24 Hr 96.9 F-99.4 F 45-61 16-20 144-200/61-79 92-96 Intake and Output 04/26/17 04/27/17 04/27/17 21:59 05:59 13:59 Intake Total 300 / 300 100 / 100 Output Total 550 / 550 125 / 125 Balance -250 / -250 100 / 100 -125 / -125 Weight 256 lb Intake & Output: Intake & Output 04/26/17 04/27/17 04/27/17 21:59 05:59 13:59 Intake Total 300 / 300 100 / 100 Output Total 550 / 550 125 / 125 Balance -250 / -250 100 / 100 -125 / -125 Weight 256 lb Intake: Oral 300 / 300 100 / 100 Output: Void Amount 50 / 50 125 / 125 Hemodialysis UF 500 / 500 Other: Meal Dinner Percent of Meal Consumed 100% Feeding Ability Assist with Tray Set Up # Voids 1 # Bowel Movements 1 1 Exam: Constitutional; Afebrile, cooperative, alert, not in distress. Eyes- No icterus, , No periorbital swelling Ears- Ext ear normal, hearing normal to conversation. Neck- Midline trachea, supple Respiratory system: Air Entry equal on both sides, No crackles or wheezing, no rhonchi. CVS- Rate rhythm regular, S1,S2 heard, no gallop, no rub. Abdomen- Soft nontender abdomen, no organomegaly, no tenderness, no guarding or rigidity, [employer]- AOOx3, moving all extremities, no gross focal deficit noted. Medical - PN: Obj Da - Labs CBC & Chem 7: 04/27/17 04:00 04/27/17 04:00 Labs: Abnormal Lab Results 04/27/17 04/27/17 04/26/17 04:00 04:00 04:00 WBC RBC 3.43 L Hgb 10.1 L Hct 29.8 L RDW 16.0 H Gran % 91.4 H Lymph % (Auto) 5.2 L Gran # 8.6 H Lymph # (Auto) 0.5 L Sodium 129 L Chloride 89 L Carbon Dioxide 21 L Anion Gap 19.0 H BUN 83 H Creatinine 7.8 H* Glucose 201 H Uric Acid 9.4 H Calcium 8.3 L Phosphorus 7.2 H* Magnesium 3.0 H Iron TIBC Transferrin % Sat Lactate Dehydrogenase 281 H Troponin T 0.21 H* Albumin 3.0 L Globulin 3.9 H Albumin/Globulin Ratio 0.8 L Triglycerides U [place] Prot/Creat Ratio 04/26/17 04/26/17 04/25/17 04:00 04:00 16:06 WBC 13.1 H RBC 2.93 L Hgb 8.6 L Hct 25.6 L RDW 15.8 H Gran % 88.6 H Lymph % (Auto) 6.4 L Gran # 11.6 H Lymph # (Auto) 0.8 L Sodium 127 L Chloride 89 L Carbon Dioxide 18 L Anion Gap 20.0 H BUN 97 H Creatinine 8.6 H* Glucose 216 H Uric Acid 11.5 H Calcium Phosphorus 7.6 H* Magnesium 3.3 H Iron 27 L TIBC 174 L Transferrin % Sat 15 L Lactate Dehydrogenase 280 H Troponin T 0.22 H* Albumin 2.8 L Globulin 4.0 H Albumin/Globulin Ratio 0.7 L Triglycerides U [place] Prot/Creat Ratio 04/25/17 04/25/17 04/25/17 09:27 09:27 09:27 WBC RBC Hgb Hct RDW Gran % Lymph % (Auto) Gran # Lymph # (Auto) Sodium 126 L Chloride 89 L Carbon Dioxide 20 L Anion Gap 17.0 H BUN 93 H Creatinine 7.2 H* Glucose 245 H Uric Acid Calcium 8.4 L Phosphorus Magnesium 2.9 H Iron TIBC Transferrin % Sat Lactate Dehydrogenase Troponin T 0.22 H* Albumin Globulin Albumin/Globulin Ratio Triglycerides U [place] Prot/Creat Ratio 04/25/17 04/25/17 04/24/17 05:35 05:35 17:48 WBC 13.9 H RBC 2.99 L Hgb 8.6 L Hct 26.1 L RDW 15.6 H Gran % 86.9 H Lymph % (Auto) 7.5 L Gran # 12.1 H Lymph # (Auto) 1.0 L Sodium 126 L Chloride 89 L Carbon Dioxide 20 L Anion Gap 17.0 H BUN 85 H Creatinine 6.9 H* Glucose 246 H Uric Acid 9.8 H Calcium 8.5 L Phosphorus 5.5 H Magnesium 2.9 H Iron TIBC Transferrin % Sat Lactate Dehydrogenase Troponin T Albumin 2.7 L Globulin 4.0 H Albumin/Globulin Ratio 0.7 L Triglycerides 170 H U [place] Prot/Creat Ratio 9.50 H Meds: Medications Acetaminophen (Tylenol) 650 mg PO Q4-6HP PRN PRN Reason: PAIN/FEVER > 101 Allopurinol (Zyloprim) 200 mg PO QDAY [facility] Last Admin: 04/27/17 08:48 Dose: 200 mg Atorvastatin Calcium (Lipitor) 40 mg PO DAILY [facility] Last Admin: 04/27/17 08:48 Dose: 40 mg Calcium Acetate (Phoslo) 667 mg PO TIDCC [facility] Last Admin: 04/27/17 07:52 Dose: 667 mg Dextrose (Dextrose 50%) 0 ml IV UD PRN PRN Reason: Hypoglycemia Diagnostic Test (Pha) (Accu-Chek) 1 each FS ACHS [facility] Last Admin: 04/27/17 11:49 Dose: 1 each Docusate Sodium (Colace) 100 mg PO BID [facility] Last Admin: 04/27/17 08:45 Dose: Not Given Famotidine (Pepcid) 20 mg IV HS [facility] Last Admin: 04/26/17 22:00 Dose: 20 mg Ferrous Sulfate (Ferrous Sulfate) 325 mg PO CCHS [facility] Last Admin: 04/27/17 07:52 Dose: 325 mg Glucose (Insta-Glucose) 15 gm PO PRN PRN PRN Reason: Hypoglycemia Guaifenesin/Codeine Phosphate (Robitussin Ac) 10 ml PO Q4HP PRN PRN Reason: Cough Heparin Sodium (Porcine) (Heparin Flush) 2 ml IV Q12 [facility] Last Admin: 04/27/17 09:48 Dose: 2 ml Hydralazine HCl (Apresoline) 10 mg IV Q4-6HP PRN PRN Reason: Hypertension Last Admin: 04/27/17 09:08 Dose: 10 mg Hydralazine HCl (Apresoline) 50 mg PO TID [facility] Magnesium Sulfate (Magnesium Sulfate) 2 gm in 50 mls @ 50 mls/hr IV UD PRN PRN Reason: MG = or < 1.7 Acetaminophen (Ofirmev) 1,000 mg in 100 mls @ 200 mls/hr IV Q6HP PRN PRN Reason: PAIN/FEVER > 101 Ertapenem 0.5 gm/ Sodium (Chloride) 50 mls @ 100 mls/hr IV Q24H [facility] Last Admin: 04/27/17 08:47 Dose: 100 mls/hr Insulin Glargine (Lantus) 25 unit SQ BID [facility] Last Admin: 04/27/17 08:49 Dose: 25 unit Insulin Human Lispro (Humalog) 0 unit SQ ACHS [facility] PRN Reason: Protocol Last Admin: 04/27/17 07:50 Dose: 3 unit Iron Carb/Multivit/[place]/Folic Acid (Multivitamin W/Minerals) 1 tab PO DAILY [facility] Last Admin: 04/27/17 08:48 Dose: 1 tab Levothyroxine S[facility]throid) [facility] Last Admin: 04/27/17 07:57 Dose: 300 mcg Lorazepam (Ativan) 1 mg PO DAILYP PRN PRN Reason: ANXIETY/SEDATION Morphine Sulfate (Morphine) 2 mg IV TIDP PRN PRN Reason: Pain Ondansetron HCl (Zofran) 4 mg IV Q4-6HP PRN PRN Reason: Nausea And Vomiting Oxycodone HCl (Roxicodone) 5 mg PO Q4HP PRN PRN Reason: Pain Last Admin: 04/26/17 22:01 Dose: 5 mg Potassium Chloride (Klor-Con) 40 meq PO DAILYP PRN PRN Reason: K+ < 3.5 [facility]) [facility] Last Admin: 04/27/17 07:52 Dose: 40 mg Senna/Docusate Sodium (Senna Plus Tablet) 1 tab PO HS [facility] Last Admin: 04/26/17 22:01 Dose: Not Given Sodium Chloride (Saline Flush) 10 ml IV UD PRN PRN Reason: FLUSH Sodium Chloride (Saline Flush) 10 ml IV Q8 [facility] Last Admin: 04/27/17 06:56 Dose: 10 ml Theophylline (Uniphyll) 200 mg PO BID [facility] Last Admin: 04/27/17 08:48 Dose: 200 mg Medical - PN: A/P - Time Spent With Patient Total time spent is greater than 50% in coordination of care (as documented) at patient's floor/unit and/or counseling patient: - Narrative A/P Narrative: A/P Infected Diabetic Ulcer: s/p debridement, MSSA in the wound and blood cx, was on zosyn switched to ertapenum ( zosyn as cause of renal failure? ) MRI of the foot reviewed, no residual infection as per surgery. off wound vac. Management as per wound care. Staph Bacteremia: MSSA On ertapenum now. repeat cx neg, echo neg. Bradycardia/ Elevated trop: Discussed with Dr Hobbs, start on theophylline, prn isopreul, will need pacemaker in the exterminator helper termite but cannot get one due to infection. Amlodipine stopped can in some cases cause bradycardia. HR improving , not sure if cessation of amlodipine vs theophyline is working. HTN bp uncontrolled, IV hydralazine prn. increase po hyrdralazine to 50mg tid. LA on CKD: due to AIN secondary to zosyn seems likely at this time. pt on HD nephrology following. Osteomyelitis of the foot: Will need antibiotics for 6 weeks, total, Will need ID follow up as outpatient, Sepsis ? wbc elevation could be secondary to steroids, sepsis vs drug induced AIN, monitor for now. wbc slightly better today. DM type 2 on insulin, uncontrolled :glucose on high end, titrate insulin to keep glucose < 180 afib: rate controlled, off anticoagulation now as plan to place tunneled cath. H/o DVT on Rivaroxaban held now for procedure. will have to consider alternative anti coagulation agent, eliquis of coumadin given renal failure. Anemia: due to infection, ckd, and post op loss? s/p trasnfusion, hb stable now , monitor. Hypothyroidism: Continue levothyroxoine Full code Medical - PN: Qual - VTE Deep Vein Thrombosis/Pulmonary Embolism Present on Admission: No
--- NOTE | 2017-04-27 15:15 | Nephrology Progress Note ---
Subjective Patient information: Note initiated : 04/27/17 at 3:11 pm Service Date, if different from initiated Date: [] Patient: Bart Pagan 57 y/o M admitted on 04/18/17 for Debridement of Wound Right Foot. Chief Complaint: [] Principal diagnosis: sepsis Interval history: Patient seen this am He is feeling a little better no nausea, eating better again no worsening edema denies SOB, CP BP is elevated no other issues tolerated dialysis with no issues yesterday Pertinent ROS: as above Objective - Vital Signs Vital signs: Vital Signs Temp Pulse Pulse Resp BP BP Pulse Ox 04/27/17 14:56 51 L 165/71 04/27/17 14:29 57 L 167/78 04/27/17 13:56 53 L 162/72 04/27/17 13:28 53 L 166/72 04/27/17 13:13 66 161/71 04/27/17 13:00 97.2 F 57 L 156/86 04/27/17 11:47 96.9 F L 61 18 161/71 95 04/27/17 09:52 165/68 04/27/17 09:47 163/78 04/27/17 09:42 144/77 04/27/17 09:17 190/61 04/27/17 09:03 200/70 04/27/17 08:38 97.1 F 60 20 185/71 95 04/27/17 04:00 99.2 F H 20 176/79 94 04/27/17 00:00 99.4 F H 18 175/71 95 04/26/17 20:00 98.9 F 20 160/64 92 04/26/17 16:25 97.6 F 47 L 173/70 04/26/17 16:00 97.3 F 20 160/77 96 04/26/17 15:55 53 L 160/77 04/26/17 15:46 16 04/26/17 15:26 54 L 164/68 Intake and Output 04/27/17 04/27/17 04/27/17 05:59 13:59 21:59 Intake Total 100 / 100 Output Total 125 / 125 Balance 100 / 100 -125 / -125 Intake: Oral 100 / 100 Output: Void Amount 125 / 125 Other: # Voids 1 # Bowel Movements 1 Intake & Output: Intake & Output 04/27/17 04/27/17 04/27/17 05:59 13:59 21:59 Intake Total 100 / 100 Output Total 125 / 125 Balance 100 / 100 -125 / -125 Intake: Oral 100 / 100 Output: Void Amount 125 / 125 Other: # Voids 1 # Bowel Movements 1 - General Appearance General appearance: appears started age, obese EENT: mucous membranes moist Neck: no JVD Respiratory: clear Cardiology: no rub (bradycardic), no edema, normal S1, normal S2 Gastrointestinal: no tenderness, no guarding Integumentary: no rash, warm and dry Neurologic: alert and oriented x3 Musculoskeletal: no cyanosis, no clubbing Psychiatric: mood/affect appropriate - Lab 04/27/17 04:00 04/27/17 04:00 Most recent lab results Calcium 8.3 mg/dl (8.6-10.4) L 04/27/17 04:00 Phosphorus 7.2 mg/dL (2.7-4.5) H* 04/27/17 04:00 Magnesium 3.0 mg/dL (1.6-2.5) H 04/27/17 04:00 Assessment and Plan (1) Acute on chronic renal failure renal function continues to get worse likely AIN, doubt post infectious GN but is a possibility, complements were normal, urine eos + no hyperkalemia, mild acidosis Anemia, Hb at 10.1 no s/o fluid excess HTN: uncontrolled, amlodipine held because of profound bradycardia, will increase hydralazine to 50mg bid, follow and optimize, also UF removal may help continue oral prednisone HD today, will do 3 hrs, today using revaclear 400 dialyser, 3K/2.5Ca dialysate and UF goal of 1L, will use 133 sodium to prevent overcorrection of his hyponatremia ct phoslo dose meds to dialysis will plan HD on monday, will need to plan for tunneled cath placement next week on Monday Will follow along Status: Acute
--- NOTE | 2017-04-27 15:37 | General Surgery Progress Note ---
Subjective Narrative: Note initiated : 04/27/17 at 3:33 pm Service Date, if different from initiated Date: [] Patient: Bart Pagan 57 y/o M admitted on 04/18/17 for Debridement of Wound Right Foot. Chief Complaint: []I saw patient on . Discussed his progress with Dr. Gray and Dr. Garcia. Patient is currently undergoing hemodialysis treatment for acute on chronic renal failure.. Creatinine is trending down. Local wound care is ongoing. Currently, he will be hemodialyzed again today. Will consider resuming hyperbaric oxygen therapy tomorrow. Local wound care with MIST treatments 2 times a day Objective Temp Pulse Resp BP Pulse Ox 97.2 F 57 L 18 176/75 95 04/27/17 13:00 04/27/17 15:26 04/27/17 11:47 04/27/17 15:26 04/27/17 11:47 No fever. Vital signs are stable Bradycardia improved. Hemodynamically stable. Local wound care is ongoing. - Additional Data Intake & Output - Last 24 hours: Intake & Output 04/25/17 04/26/17 04/27/17 04/28/17 05:59 05:59 05:59 05:59 Intake Total 1910 / 1910 2214 / 2214 450 / 450 Output Total 395 / 395 0 / 0 790 / 790 125 / 125 Balance 1515 / 1515 2214 / 2214 -340 / -340 -125 / -125 Weight 246 lb 8 oz 256 lb 6.4 oz 256 lb - Labs 04/27/17 04:00 04/27/17 04:00 Diabetes panel 04/27/17 Range/Units 04:00 Sodium 129 L (133-145) mmol/L Potassium 4.4 (3.3-5.1) mmol/L Chloride 89 L (96-108) mmol/L Carbon Dioxide 21 L (22-30) mmol/L BUN 83 H (6-20) mg/dl Creatinine 7.8 H* (0.7-1.2) mg/dl Glucose 201 H (70-105) mg/dL Calcium 8.3 L (8.6-10.4) mg/dl AST 17 (0-37) U/l ALT 16 (0-40) U/l Alkaline Phosphatase 70 (39-117) U/L Total Protein 6.9 (5.9-8.4) gm/dL Albumin 3.0 L (3.2-5.2) gm/dL Triglycerides 111 (<150) mg/dl Calcium panel 04/27/17 Range/Units 04:00 Calcium 8.3 L (8.6-10.4) mg/dl Phosphorus 7.2 H* (2.7-4.5) mg/dL Albumin 3.0 L (3.2-5.2) gm/dL Pituitary panel 04/27/17 Range/Units 04:00 Sodium 129 L (133-145) mmol/L Potassium 4.4 (3.3-5.1) mmol/L Chloride 89 L (96-108) mmol/L Carbon Dioxide 21 L (22-30) mmol/L BUN 83 H (6-20) mg/dl Creatinine 7.8 H* (0.7-1.2) mg/dl Glucose 201 H (70-105) mg/dL Calcium 8.3 L (8.6-10.4) mg/dl Adrenal panel 04/27/17 Range/Units 04:00 Sodium 129 L (133-145) mmol/L Potassium 4.4 (3.3-5.1) mmol/L Chloride 89 L (96-108) mmol/L Carbon Dioxide 21 L (22-30) mmol/L BUN 83 H (6-20) mg/dl Creatinine 7.8 H* (0.7-1.2) mg/dl Glucose 201 H (70-105) mg/dL Calcium 8.3 L (8.6-10.4) mg/dl Total Bilirubin 0.2 (0.0-1.0) mg/dL AST 17 (0-37) U/l ALT 16 (0-40) U/l Alkaline Phosphatase 70 (39-117) U/L Total Protein 6.9 (5.9-8.4) gm/dL Albumin 3.0 L (3.2-5.2) gm/dL Assessment and Plan (1) Sepsis affecting skin Problem details: NECROTIZING skin and soft tissue infection. SEPSIS Uncontrolled diabetes, Anemia, CRF PLAN: HBOT Now later OR debridement / lavage and deep tissue biopsies and cultures. Status: Acute Assessment and plan: Progressing well from wound care point of view. Medical management by Hospitalist and CRF management by Unhairer Will complete 10 HBOT total treatments, Later continue with wound care and monitor. Current Visit: Yes (2) Foot infection Problem details: For LOCAL WOUND CARE. OK to proceed with treatment of chronic kidney disease and start HD after insertion of dialysis catheter. Current wound management to continue. WIll follow patient from Wound Care point of view. He understands and agrees. HBO on HOLD today and until further notice. Spoke with Dr. Garcia and Wound Care HBO team. Status: Acute Current Visit: Yes (3) Severe sepsis Status: Acute Assessment and plan: Assessment: POD # 1. Progressing well. Hypothyroidism / Hypoproteinemia Pre albumin 14 / Anemia Hct 21 ( Dilutional ) Hypothyroidism , NIDDM A1c > 9 Wound and Blood cultures S. aureus Jones sensitive Plan ; Continue current treatment. HBOT and wound care. For dressing change and wound VAC placement on Monday04/21/2017. OK to get OOB and sit out in chair. Incentive spirometry q 2 hrly when awake, NWB Right foot and leg. OK to go to BR with FWW walker NWB Current Visit: Yes - Time Spent With Patient Total time spent is greater than 50% in coordination of care (as documented) at patient's floor/unit and/or counseling patient: Assessment: Acute on chronic renal failure responding to hemodialysis treatment. Open postoperative wound right foot transmetatarsal amputation. Ongoing wound care with MIST treatments. Plan: Continue current wound care. Reassess 04/28/2017 for resuming hyperbaric oxygen less than 15 minutes
[2017-04-27] MEDS: hydrALAZINE 25 MG TABLET PO SCH ×2 (15:39→21:03)
[2017-04-27] MEDS: FAMOTIDINE/PF 20 MG/2 ML VIAL IV SCH (21:00)
[2017-04-27] MEDS: SENNOSIDES/DOCUSATE SODIUM 1 TAB TABLET PO SCH (21:03)
[2017-04-28] MEDS ORDERED: hydrALAZINE 20 MG/ML VIAL ONE (04:06)
[2017-04-28] MEDS: 0.9 % SODIUM CHLORIDE 10 ML SYRINGE IV SCH ×3 (05:43→20:43)
[2017-04-28 06:56] LABS: Basophils # (Auto) 0 K/mcL (0.0-0.3); Basophils % (Auto) 0 % (0.0-2.0); Eosinophils # (Auto) 0.1 K/mcL (0.0-0.7); Eosinophils % (Auto) 0.7 % (0.0-7.0); Granulocytes % (Auto) 89.4 % (38.0-78.0); Lymphocytes # (Auto) 0.6 K/mcL (1.5-4.8); Lymphocytes % (Auto) 5.7 % (15.5-49.0); Mean Cell Volume 87.6 fL (80.0-100.0); Mean Corpuscular HGB Conc 32.8 g/dL (31.0-36.0); Mean Corpuscular Hemoglobin 28.7 pg (26.0-34.0); Monocytes # (Auto) 0.5 K/mcL (0.1-0.9); Monocytes % (Auto) 4.2 % (1.0-12.0); Platelet Count 415 K/mcL (140-440); RBC 2.95 M/mcL (4.50-5.90); Red Cell Distribution Width 15.9 % (11.5-14.5)
[2017-04-28] MEDS: LEVOTHYROXINE 150 MCG TABLET PO SCH (07:48)
[2017-04-28 07:59] LABS: ANCA Screen NEGATIVE (NEGATIVE); Myeloperoxidase Antibody <1.0 AI (<1.0)
[2017-04-28 08:02] LABS: SCL-7-ANTIBODY <1.0 NEG AI (<1.0 NEG); SSA <1.0 NEG AI (<1.0 NEG); SSB <1.0 NEG AI (<1.0 NEG)
[2017-04-28] MEDS: INSULIN LISPRO 1 UNIT/0.01 ML UNIT SQ SCH ×4 (08:25→20:41)
[2017-04-28] MEDS: INSULIN GLARGINE, HUMAN 1 UNIT/0.01 ML SQ SCH ×2 (08:26→20:41)
[2017-04-28] MEDS: predniSONE 20 MG TABLET PO SCH (08:28)
[2017-04-28] MEDS: ALLOPURINOL 100 MG TABLET PO SCH (08:53)
[2017-04-28] MEDS: MULTIVIT,THER IRON,CA,FA & MIN 1 TABLET PO SCH (08:53)
[2017-04-28] MEDS: FERROUS SULFATE 325 MG TABLET PO SCH ×4 (08:53→20:41)
[2017-04-28] MEDS: CALCIUM ACETATE 667 MG CAPSULE PO SCH ×3 (08:53→17:42)
[2017-04-28] MEDS: DOCUSATE SODIUM 100 MG CAPSULE PO SCH ×2 (08:53→20:31)
[2017-04-28] MEDS: HEPARIN 5,000 UNIT/ML VIAL SQ SCH ×2 (08:56→20:31)
[2017-04-28 09:05] LABS: ALT/SGPT 13 U/l (0-40); Albumin 2.9 gm/dL (3.2-5.2); Albumin/Globulin Ratio 0.8 (1.0-2.3); Alkaline Phosphatase 74 U/L (39-117); Bilirubin,Direct < 0.2 mg/dL (0.0-0.3); Blood Urea Nitrogen 73 mg/dl (6-20); Gamma Glutamyl Transpeptidase 56 U/L (8-61); Magnesium 2.9 mg/dL (1.6-2.5); Uric Acid 7.7 mg/dL (2.5-8.0)
[2017-04-28] MEDS: DOXAZOSIN 4 MG TABLET PO SCH (09:05)
[2017-04-28] MEDS: hydrALAZINE 25 MG TABLET PO SCH ×3 (09:05→20:40)
[2017-04-28] MEDS: ATORVASTATIN 20 MG TABLET PO SCH (09:05)
[2017-04-28] MEDS: ERTAPENEM 0.5 GM in 0.9 % SODIUM CHLORIDE 50 ML IV SCH (09:51)
[2017-04-28] MEDS: THEOPHYLLINE ANHYDROUS 400 MG TAB.XL.24H PO SCH ×2 (09:51→20:40)
--- NOTE | 2017-04-28 10:41 | Internal Med Progress Note ---
Medical - PN: Subj Patient information: Note initiated : 04/28/17 at 10:37 am Service Date, if different from initiated Date: [] Patient: Bart Pagan a 57 y/o M admitted on 04/18/17 for Debridement of Wound Right Foot. Chief Complaint: [] Interval history: Mr. Pagan is a 57 year old M who underwentright foot metatarsal amputation on March 07. Patient has been recovering well and has been following up with wound care. On Monday patient saw on care physician and underwent treatment along with 2 stitches. Over the weekend patient has noted increasing swelling and pain discharge. By Monday patient started experiencing shaking chills and drenching sweats long with excessive exhaustion. Today at work patient was unable to bear weight due to increasing pain and swelling along with associated fever. He notices bandage soaked in bloody discharge. he is afebrile 102. e was subsequently directed by Dr. Cameron's officeto ER. initial workup was significant for elevated white count along with fever and sepsis. hospitalist service was consulted after case was discussed with Dr. Maresor admission initiation of antibiotics and likely initiation of hyperbaric treatments. at the time of examination patient is alert oriented. He denies any active distress except for amputation stump pain and swelling. he endorses to fevers. Denies diarrhea dysuria headache photophobia skin rash or joint pain or weight loss. 04/19: Pt seen examined, febrile overnight, blood cx positive, on vancomycin, antibiotics changed from rocephin ./ clinda to zosyn. Patient on pn tylenol. HBOT rx done today and he is s/p wound debridement by Dr Mccauley. Plan to continue antibiotics for now. LIkely staph related infection, but given DM wound will cover from gram neg as well as anerobic infections. Patient otherwise is doing well, denies any acute complaints besdies pain in the leg and some mechanical back discomfort. his labs show worsening renal functino, nephrology following, IV fluid rate increased, and torsemide held. 04/20-patient ongoing hyperbaric treatment. Pansensitive MSSA. Continue Zosyn. Ongoing wound and osteomyelitis management by Dr. Cameron.post debridement day 1. Wound care physician plans to continue HBO reatment/wound VAC placement. Creatinine 4.9. renal issues managed by nephrology. Hemoglobin 7.3. Transfuse 2 units PRBC. Surveillance cultures pending. ok count 11.9. persistent bandemia. vernight persistently shaking chills fever. MAXIMUM TEMPERATURE 101. 9/1. Patient doing well. No overnight events and rested well. Patient however is anxious about treatment plan given underlying osteomyelitis he would rather want further amputation to remove infected bone. I explained the current treatment is being directed as per wound care physician's ecommendations including debridement/hBO/ IV antibiotics. nursing staff expressed concerns about elevated blood sugars. Patient restarted on 20 twice a day Lantus. Improved fevers shaking chills. Tolerating hyperbaric oxygen treatments well. MSSA on blood culture. Surveillance blood cultures negative so far. white count down to 11.7. BUN and 73 creatinine 4.7.off vancomycin. Continue Zosyn. 04/22: Patient seen examined, no acute overnight issues, patient sitting in the chair and is tolerating po diet well, He has a wound vac on by Dr Mccauley, plans for contiued HBOT for now. likely needs 10 treatments, next scheduled for monday and last treatment likely Monday. Continue with present antibiotics. labs stable. creat improving to 4.5, nephrology following continue to monitor. 04/23: Pt seen examined, still has low grade leucocytosis but no other symptoms, etiology steroids? He remains on antibiotics as per his microbiology. Lab show slight worsening in creatinine to 4.7 today. clinically not volume overloaded, will give 1 L normal Saline and reassess in AM. continue IV Abx, Wound care plan as per wound care surgery. 04/24: patient seen examined, no acute ovenright issues reported, but the patients blood work shows rising WBC count, pt feels that his infection may be coming back, and the patient has significantly worsening renal function. Creat is now 5.7 despite 1L fluid given yesterday. The patients UA has RBC and few wbc, culture pending, patient cxr shows some atelectasis, At this time I am not sure if the patient wound is completely debrided. I reviewed with Case with Dr Mccauley, and plan to get an MRI of the foot for further evaluation. Dr Garcia evaluated the patient and patients workup is pending. etiology of hematuria? Pt did not have a carrero, renal usg ordered. Antibiotics changed from zosyn to ertapenum. 04/25: patient seen, examined, overnight events noted, patient has no acute complaints but is feeling much more tired and weak. The patient also reports some amount of nausea. No vomiting. Denies any chest pain, denies any shortness of breath. Denies any palpitations. The patient's creatinine is worsening, the patient was Placed on telemetry and the plan was to initiate dialysis. On telemetry, it was noted that the patient had significant bradycardia with heart rates and 28-40. The patient does have some sinus pauses. Patient's troponin was elevated at 0.22, EKG reveals sinus bradycardia. I called Dr. Gonzalez was the auto research engineer it web development consultant at [employer], as well as the patient's primary auto research engineer. He reviewed the patient's history and is aware of the chronic bradycardia issues, but was not aware of the heart. It was this low. Given that the patient has an active infection He noted that the patient is not a candidate for a pacemaker placement at this point in time. He noted that the troponin is likely secondary to hypoperfusion and no specific management was warranted for same. The patient has had a negative stress test in 2014. He advised to start the patient on theophylline 200 mg twice a day to see if it helps with the bradycardia. He also said to use isoproterenol if heart rate drops too low or during a procedure if needed given very low heart rate, but no contraindication for any procedure. Did not think pt needed to be transferred to higher center. 04/26: patient seen and examined, doing well this morning, denied any nausea, vomiting, abdominal pain or chest pain. Denies any palpitations. Labs reviewed with him. Creatinine continues to worsen. Patient did have a bowel movement and urine output today around 240cc dark urine, he feels better nwo that the HR is better, now back > 40 Plan for placement of non tunneled catheter today and start on Hemodialysis. Continue steroids for possible drug induced renal failure continue with IV antibiotics for infection. MRI reviewed, no acute infection, according to Surgery. 04/27: patient seen and examined, doing well, no acute complaints. Had dialysis done yesterday. Heart rate is better. In the 50s to 60s. He is scheduled to have dialysis again this afternoon. He is able to tolerate by mouth well. No diarrhea, no constipation. Did take some urine today. 04/28: The patient seen examined, no acute overnight events, HR > 50, no new concerns. Patient is scheduled to get a tunneled catheter today. Plan of care discussed with nephrology and division operations specialist. Dr Cameron does not believe the patient has osteomyelitis, and MRI changes seen are post operative changes. He is not inclined to use IV antibiotics for 6 weeks. Plan then for oral antibiotics as per sensitivities at discharge. Pt remains oliguric, patient still on steroids and on HD as per nephrology. Pertinent ROS: Denies headache, dizziness Denies chest pain, palpitations Denies cough or shortness of breath Denies abdominal pain, nausea or vomiting. - Constitutional Vitals: Vital Signs Temp Pulse Resp BP Pulse Ox 98.9 F 53 L 20 179/77 92 04/28/17 03:43 04/27/17 20:00 04/28/17 03:43 04/28/17 05:38 04/28/17 03:43 Period Temp Pulse Resp BP Sys/Mancini Pulse Ox Last 24 Hr 96.9 F-99.4 F 51-66 16-20 156-182/59-86 92-96 Intake and Output 04/27/17 04/28/17 04/28/17 21:59 05:59 13:59 Intake Total 400 / 400 480 / 480 Output Total 1025 / 1025 Balance -625 / -625 460 / 460 Weight 233 lb 8 oz Intake & Output: Intake & Output 04/27/17 04/28/17 04/28/17 21:59 05:59 13:59 Intake Total 400 / 400 480 / 480 Output Total 1025 / 1025 Balance -625 / -625 460 / 460 Weight 233 lb 8 oz Intake: Oral 400 / 400 480 / 480 Output: Void Amount 25 / 25 Hemodialysis UF 1000 / 1000 Exam: Constitutional; Afebrile, cooperative, alert, not in distress. Eyes- No icterus, , No periorbital swelling Ears- Ext ear normal, hearing normal to conversation. Neck- Midline trachea, supple Respiratory system: Air Entry equal on both sides, No crackles or wheezing, no rhonchi. CVS- Rate rhythm regular, S1,S2 heard, no gallop, no rub. Abdomen- Soft nontender abdomen, no organomegaly, no tenderness, no guarding or rigidity, SAMPLE PREPARATION SUPERVISOR- AOOx3, moving all extremities, no gross focal deficit noted. Medical - PN: Obj Da - Labs CBC & Chem 7: 04/28/17 04:00 04/28/17 04:00 Labs: Abnormal Lab Results 04/28/17 04/28/17 04/27/17 04:00 04:00 04:00 WBC 11.4 H RBC 2.95 L Hgb 8.5 L Hct 25.8 L RDW 15.9 H Gran % 89.4 H Lymph % (Auto) 5.7 L Gran # 10.1 H Lymph # (Auto) 0.6 L Sodium 130 L 129 L Chloride 89 L 89 L Carbon Dioxide 21 L Anion Gap 17.0 H 19.0 H BUN 73 H 83 H Creatinine 7.7 H* 7.8 H* Glucose 255 H 201 H Uric Acid 9.4 H Calcium 8.2 L 8.3 L Phosphorus 6.6 H* 7.2 H* Magnesium 2.9 H 3.0 H Iron TIBC Transferrin % Sat Lactate Dehydrogenase 261 H 281 H Troponin T Albumin 2.9 L 3.0 L Globulin 3.8 H 3.9 H Albumin/Globulin Ratio 0.8 L 0.8 L 04/27/17 04/26/17 04/26/17 04:00 04:00 04:00 WBC RBC 3.43 L Hgb 10.1 L Hct 29.8 L RDW 16.0 H Gran % 91.4 H Lymph % (Auto) 5.2 L Gran # 8.6 H Lymph # (Auto) 0.5 L Sodium 127 L Chloride 89 L Carbon Dioxide 18 L Anion Gap 20.0 H BUN 97 H Creatinine 8.6 H* Glucose 216 H Uric Acid 11.5 H Calcium Phosphorus 7.6 H* Magnesium 3.3 H Iron 27 L TIBC 174 L Transferrin % Sat 15 L Lactate Dehydrogenase 280 H Troponin T 0.21 H* Albumin 2.8 L Globulin 4.0 H Albumin/Globulin Ratio 0.7 L 04/26/17 04/25/17 04/25/17 04:00 16:06 09:27 WBC 13.1 H RBC 2.93 L Hgb 8.6 L Hct 25.6 L RDW 15.8 H Gran % 88.6 H Lymph % (Auto) 6.4 L Gran # 11.6 H Lymph # (Auto) 0.8 L Sodium Chloride Carbon Dioxide Anion Gap BUN Creatinine Glucose Uric Acid Calcium Phosphorus Magnesium Iron TIBC Transferrin % Sat Lactate Dehydrogenase Troponin T 0.22 H* 0.22 H* Albumin Globulin Albumin/Globulin Ratio 04/25/17 04/25/17 09:27 09:27 WBC RBC Hgb Hct RDW Gran % Lymph % (Auto) Gran # Lymph # (Auto) Sodium 126 L Chloride 89 L Carbon Dioxide 20 L Anion Gap 17.0 H BUN 93 H Creatinine 7.2 H* Glucose 245 H Uric Acid Calcium 8.4 L Phosphorus Magnesium 2.9 H Iron TIBC Transferrin % Sat Lactate Dehydrogenase Troponin T Albumin Globulin Albumin/Globulin Ratio Meds: Medications Acetaminophen (Tylenol) 650 mg PO Q4-6HP PRN PRN Reason: PAIN/FEVER > 101 Allopurinol (Zyloprim) 200 mg PO QDAY [facility] Last Admin: 04/28/17 08:53 Dose: 200 mg Atorvastatin Calcium (Lipitor) 40 mg PO DAILY [facility] Last Admin: 04/28/17 09:05 Dose: 40 mg Calcium Acetate (Phoslo) 667 mg PO TIDCC [facility] Last Admin: 04/28/17 08:53 Dose: 667 mg Dextrose (Dextrose 50%) 0 ml IV UD PRN PRN Reason: Hypoglycemia Diagnostic Test (Pha) (Accu-Chek) 1 each FS ACHS [facility] Last Admin: 04/28/17 08:25 Dose: 1 each Docusate Sodium (Colace) 100 mg PO BID [facility] Last Admin: 04/28/17 08:53 Dose: 100 mg Doxazosin Mesylate (Cardura) 4 mg PO DAILY [facility] Last Admin: 04/28/17 09:05 Dose: 4 mg Famotidine (Pepcid) 20 mg IV HS [facility] Last Admin: 04/27/17 21:00 Dose: 20 mg Ferrous Sulfate (Ferrous Sulfate) 325 mg PO CCHS [facility] Last Admin: 04/28/17 08:53 Dose: 325 mg Glucose (Insta-Glucose) 15 gm PO PRN PRN PRN Reason: Hypoglycemia Guaifenesin/Codeine Phosphate (Robitussin Ac) 10 ml PO Q4HP PRN PRN Reason: Cough Heparin Sodium (Porcine) (Heparin Flush) 2 ml IV Q12 [facility] Last Admin: 04/28/17 08:54 Dose: 2 ml Heparin Sodium (Porcine) (Heparin) 5,000 unit SQ Q12 [facility] Last Admin: 04/28/17 08:56 Dose: 5,000 unit Hydralazine HCl (Apresoline) 10 mg IV Q4-6HP PRN PRN Reason: Hypertension Last Admin: 04/27/17 09:08 Dose: 10 mg Hydralazine HCl (Apresoline) 50 mg PO TID [facility] Last Admin: 04/28/17 09:05 Dose: 50 mg Magnesium Sulfate (Magnesium Sulfate) 2 gm in 50 mls @ 50 mls/hr IV UD PRN PRN Reason: MG = or < 1.7 Acetaminophen (Ofirmev) 1,000 mg in 100 mls @ 200 mls/hr IV Q6HP PRN PRN Reason: PAIN/FEVER > 101 Ertapenem 0.5 gm/ Sodium (Chloride) 50 mls @ 100 mls/hr IV Q24H [facility] Last Admin: 04/28/17 09:51 Dose: 100 mls/hr Insulin Glargine (Lantus) 30 unit SQ BID [facility] Last Admin: 04/28/17 08:26 Dose: 30 unit Insulin Human Lispro (Humalog) 0 unit SQ ACHS [facility] PRN Reason: Protocol Last Admin: 04/28/17 08:25 Dose: 8 unit Iron Carb/Multivit/Post Form Remover/Folic Acid (Multivitamin W/Minerals) 1 tab PO DAILY [facility] Last Admin: 04/28/17 08:53 Dose: 1 tab [facility] Admin: 04/28/17 07:48 Dose: 300 mcg Lorazepam (Ativan) 1 mg PO DAILYP PRN PRN Reason: ANXIETY/SEDATION Morphine Sulfate (Morphine) 2 mg IV TIDP PRN PRN Reason: Pain Ondansetron HCl (Zofran) 4 mg IV Q4-6HP PRN PRN Reason: Nausea And Vomiting Oxycodone HCl (Roxicodone) 5 mg PO Q4HP PRN PRN Reason: Pain Last Admin: 04/27/17 21:02 Dose: 5 mg Potassium Chloride (Klor-Con) 40 meq PO DAILYP PRN PRN Reason: K+ < 3.5 [facility]) [facility] Last Admin: 04/28/17 08:28 Dose: 40 mg Senna/Docusate Sodium (Senna Plus Tablet) 1 tab PO HS [facility] Last Admin: 04/27/17 21:03 Dose: 1 tab Sodium Chloride (Saline Flush) 10 ml IV UD PRN PRN Reason: FLUSH Sodium Chloride (Saline Flush) 10 ml IV Q8 [facility] Last Admin: 04/28/17 05:43 Dose: 10 ml Theophylline (Uniphyll) 200 mg PO BID [facility] Last Admin: 04/28/17 09:51 Dose: 200 mg Medical - PN: A/P - Time Spent With Patient Total time spent is greater than 50% in coordination of care (as documented) at patient's floor/unit and/or counseling patient: - Narrative A/P Narrative: A/P Infected Diabetic Ulcer: s/p debridement, MSSA in the wound and blood cx, was on zosyn switched to ertapenum ( zosyn as cause of renal failure? ) MRI of the foot reviewed, no residual infection as per surgery. off wound vac. Management as per wound care. Plan for oral antibiotics at discharge. Staph Bacteremia: MSSA On ertapenum now. repeat cx neg, echo neg. Bradycardia/ Elevated trop: Discussed with Dr Hobbs, start on theophylline, prn isopreul if hr gets too low, [place] [facility] pacemaker [place] [facility] but cannot get one due to infection. Amlodipine stopped can in some cases cause bradycardia. HR improving. Continue to monitor. HTN bp uncontrolled, IV hydralazine prn. po hydralazine 50mg TId, start on doxazosin 4mg qd LA on CKD: due to AIN secondary to zosyn seems likely at this time. pt on HD nephrology following. Osteomyelitis of the foot: As per Dr Cameron there is no osteomyelitis MRI/ XRay findings are reactive, ok for oral abx and follow up with ID as outpatient. Sepsis resolved. DM type 2 on insulin, uncontrolled :glucose high, titrate insulin to keep glucose < 180, increase lantus from 30 bid to 35 units bid, med sliding scale protocol for now. afib: rate controlled, off anticoagulation now as plan to place tunneled cath. H/o DVT on Rivaroxaban held now for procedure. will have to consider alternative anti coagulation agent, eliquis of coumadin given renal failure. Hep sq for dvt prophylaxis. Anemia: due to infection, ckd, and post op loss? s/p transfusion, hb stable now , monitor. Hypothyroidism: Continue levothyroxine Full code Medical - PN: Qual - VTE Deep Vein Thrombosis/Pulmonary Embolism Present on Admission: No
--- NOTE | 2017-04-28 13:24 | General Surgery Progress Note ---
Subjective Patient reports: no new complaints Narrative: Note initiated : 04/28/17 at 1:18 pm Service Date, if different from initiated Date: [] Patient: Bart Pagan 57 y/o M admitted on 04/18/17 for Debridement of Wound Right Foot. Chief Complaint: []Looking good and feeling better since starting him on HD. Patient's wound was reviewed with nursing staff and Dr. Gray, Hospitalist. Objective Temp Pulse Resp BP Pulse Ox 98.3 F 53 L 18 174/77 93 04/28/17 11:43 04/28/17 11:43 04/28/17 11:43 04/28/17 11:43 04/28/17 11:43 Afebrile. VSS. Heart rate improving. HD stable. NO orthostatic changes. L/E. Wound bed and periwound is firm and granulating. Superficial callous is well and edema of ankle and leg is improving Granulations over 70 % of wound bed. Slough is starting to demarcate. Creatinine / wbc trending down. Reviewed MRI pictures and reports. POST SURGICAL and wound care changes are stable and will take time to clear or resolve. No evidence of osteomyelitis. - Additional Data Intake & Output - Last 24 hours: Intake & Output 04/26/17 04/27/17 04/28/17 04/29/17 05:59 05:59 05:59 05:59 Intake Total 2214 / 2214 450 / 450 1170 / 1170 Output Total 0 / 0 790 / 790 1170 / 1170 Balance 2214 / 2214 -340 / -340 0 / 0 Weight 256 lb 6.4 oz 256 lb 233 lb 8 oz - Labs 04/28/17 04:00 04/28/17 04:00 Diabetes panel 04/28/17 Range/Units 04:00 Sodium 130 L (133-145) mmol/L Potassium 4.5 (3.3-5.1) mmol/L Chloride 89 L (96-108) mmol/L Carbon Dioxide 24 (22-30) mmol/L BUN 73 H (6-20) mg/dl Creatinine 7.7 H* (0.7-1.2) mg/dl Glucose 255 H (70-105) mg/dL Calcium 8.2 L (8.6-10.4) mg/dl AST 13 (0-37) U/l ALT 13 (0-40) U/l Alkaline Phosphatase 74 (39-117) U/L Total Protein 6.7 (5.9-8.4) gm/dL Albumin 2.9 L (3.2-5.2) gm/dL Triglycerides 125 (<150) mg/dl Calcium panel 04/28/17 Range/Units 04:00 Calcium 8.2 L (8.6-10.4) mg/dl Phosphorus 6.6 H* (2.7-4.5) mg/dL Albumin 2.9 L (3.2-5.2) gm/dL Pituitary panel 04/28/17 Range/Units 04:00 Sodium 130 L (133-145) mmol/L Potassium 4.5 (3.3-5.1) mmol/L Chloride 89 L (96-108) mmol/L Carbon Dioxide 24 (22-30) mmol/L BUN 73 H (6-20) mg/dl Creatinine 7.7 H* (0.7-1.2) mg/dl Glucose 255 H (70-105) mg/dL Calcium 8.2 L (8.6-10.4) mg/dl Adrenal panel 04/28/17 Range/Units 04:00 Sodium 130 L (133-145) mmol/L Potassium 4.5 (3.3-5.1) mmol/L Chloride 89 L (96-108) mmol/L Carbon Dioxide 24 (22-30) mmol/L BUN 73 H (6-20) mg/dl Creatinine 7.7 H* (0.7-1.2) mg/dl Glucose 255 H (70-105) mg/dL Calcium 8.2 L (8.6-10.4) mg/dl Total Bilirubin 0.2 (0.0-1.0) mg/dL AST 13 (0-37) U/l ALT 13 (0-40) U/l Alkaline Phosphatase 74 (39-117) U/L Total Protein 6.7 (5.9-8.4) gm/dL Albumin 2.9 L (3.2-5.2) gm/dL Assessment and Plan (1) Sepsis affecting skin Problem details: NECROTIZING skin and soft tissue infection. SEPSIS Uncontrolled diabetes, Anemia, CRF PLAN: HBOT Now later OR debridement / lavage and deep tissue biopsies and cultures. Status: Acute Assessment and plan: Progressing well from wound care point of view. Medical management by Hospitalist and CRF management by [employer] Operator Will complete 10 HBOT total treatments, Later continue with wound care and monitor. Current Visit: Yes (2) Foot infection Problem details: For LOCAL WOUND CARE. OK to proceed with treatment of chronic kidney disease and start HD after insertion of dialysis catheter. Current wound management to continue. WIll follow patient from Wound Care point of view. He understands and agrees. HBO on HOLD today and until further notice. Spoke with Dr. Garcia and Wound Care HBO team. Status: Acute Current Visit: Yes (3) Severe sepsis Status: Acute Assessment and plan: Assessment: POD # 1. Progressing well. Hypothyroidism / Hypoproteinemia Pre albumin 14 / Anemia Hct 21 ( Dilutional ) Hypothyroidism , NIDDM A1c > 9 Wound and Blood cultures S. aureus Jones sensitive Plan ; Continue current treatment. HBOT and wound care. For dressing change and wound VAC placement on Monday04/21/2017. OK to get OOB and sit out in chair. Incentive spirometry q 2 hrly when awake, NWB Right foot and leg. OK to go to BR with FWW walker NWB Current Visit: Yes - Time Spent With Patient Total time spent is greater than 50% in coordination of care (as documented) at patient's floor/unit and/or counseling patient: Assessment: Progressing Well. Responding satisfactorily from local wound care on a daily basis. OK to hold off HBO treatments at this time. Plan : Continue present treatment. OK to give PO antibiotics per Dr. Gray. HOLD OFF on HBOT at this time. OK to discharge home from wound care point of view . If discharged follow up at wound care clinic in ONE week. 25 - 35 minutes
--- NOTE | 2017-04-28 16:47 | Nephrology Progress Note ---
Subjective Patient information: Note initiated : 04/28/17 at 4:45 pm Service Date, if different from initiated Date: [] Patient: Bart Pagan 57 y/o M admitted on 04/18/17 for Debridement of Wound Right Foot. Chief Complaint: [] Principal diagnosis: sepsis Interval history: no overnight events still oliguric no SOB, CP, dizziness appetite seems to have improved will get TCC placed today Pertinent ROS: as above Objective - Vital Signs Vital signs: Vital Signs Temp Pulse Resp BP Pulse Ox 04/28/17 11:43 98.3 F 53 L 18 174/77 93 04/28/17 08:00 98.0 F 18 177/87 04/28/17 05:38 179/77 04/28/17 05:26 182/76 04/28/17 03:43 98.9 F 20 181/75 92 04/28/17 00:00 99.4 F H 20 166/69 96 04/27/17 20:00 98.8 F 53 L 20 161/68 94 04/27/17 19:10 58 L 93 Intake and Output 04/28/17 04/28/17 04/28/17 05:59 13:59 21:59 Intake Total 480 / 480 0 / 0 Output Total 20 / 20 Balance 460 / 460 0 / 0 Intake: Oral 480 / 480 0 / 0 Output: Void Amount 20 / 20 Intake & Output: Intake & Output 04/28/17 04/28/17 04/28/17 05:59 13:59 21:59 Intake Total 480 / 480 0 / 0 Output Total 20 / 20 Balance 460 / 460 0 / 0 Intake: Oral 480 / 480 0 / 0 Output: Void Amount 20 / 20 - General Appearance General appearance: appears started age, obese EENT: mucous membranes moist Neck: no JVD Respiratory: clear Cardiology: no rub, no edema, normal S1, normal S2 (bradycardic ) Gastrointestinal: no tenderness, no guarding Integumentary: warm and dry Neurologic: no asterixis, alert and oriented x3 Musculoskeletal: no erythema, no cyanosis Psychiatric: mood/affect appropriate - Lab 04/28/17 04:00 04/28/17 04:00 Most recent lab results Calcium 8.2 mg/dl (8.6-10.4) L 04/28/17 04:00 Phosphorus 6.6 mg/dL (2.7-4.5) H* 04/28/17 04:00 Magnesium 2.9 mg/dL (1.6-2.5) H 04/28/17 04:00 Assessment and Plan (1) Acute on chronic renal failure renal function continues to get worse likely AIN, doubt post infectious GN but is a possibility, complements were normal, urine eos + no hyperkalemia, mild acidosis Anemia, Hb at 10.1 no s/o fluid excess HTN: uncontrolled, amlodipine held because of profound bradycardia, will increase hydralazine to 50mg bid, follow and optimize, also UF removal may help continue oral prednisone TCC will be placed today, will plan for HD tomorrow HTN uncontrolled,d oxazosin added today, will follow the response will need aranesp and IV iron, will arrange this as outpt after discharge dose meds to HD will follow along Status: Acute
[2017-04-28] MEDS: LORazepam 1 MG TABLET PO PRN (17:08)
[2017-04-28] MEDS ORDERED: DESMOPRESSIN ACETATE 20 MCG in 0.9 % SODIUM CHLORIDE 50 ML IV ONE (19:17)
[2017-04-28] MEDS: SENNOSIDES/DOCUSATE SODIUM 1 TAB TABLET PO SCH (20:31)
[2017-04-28] MEDS: FAMOTIDINE/PF 20 MG/2 ML VIAL IV SCH (20:41)
[2017-04-28] MEDS: oxyCODONE HCL 5 MG TABLET PO PRN (20:50)
[2017-04-29 05:18] LABS: Basophils # (Auto) 0 K/mcL (0.0-0.3); Basophils % (Auto) 0 % (0.0-2.0); Eosinophils # (Auto) 0 K/mcL (0.0-0.7); Eosinophils % (Auto) 0 % (0.0-7.0); Granulocytes % (Auto) 87.1 % (38.0-78.0); Lymphocytes # (Auto) 0.7 K/mcL (1.5-4.8); Lymphocytes % (Auto) 7.3 % (15.5-49.0); Mean Cell Volume 87.1 fL (80.0-100.0); Mean Corpuscular HGB Conc 32.8 g/dL (31.0-36.0); Mean Corpuscular Hemoglobin 28.6 pg (26.0-34.0); Monocytes # (Auto) 0.6 K/mcL (0.1-0.9); Monocytes % (Auto) 5.6 % (1.0-12.0); Platelet Count 385 K/mcL (140-440); RBC 2.78 M/mcL (4.50-5.90); Red Cell Distribution Width 15.7 % (11.5-14.5)
[2017-04-29] MEDS: 0.9 % SODIUM CHLORIDE 10 ML SYRINGE IV SCH ×3 (05:39→20:52)
[2017-04-29 05:58] LABS: ALT/SGPT 10 U/l (0-40); Albumin 2.8 gm/dL (3.2-5.2); Albumin/Globulin Ratio 0.8 (1.0-2.3); Alkaline Phosphatase 64 U/L (39-117); Bilirubin,Direct < 0.2 mg/dL (0.0-0.3); Blood Urea Nitrogen 88 mg/dl (6-20); Gamma Glutamyl Transpeptidase 53 U/L (8-61); Magnesium 2.9 mg/dL (1.6-2.5); Uric Acid 8.7 mg/dL (2.5-8.0)
[2017-04-29] MEDS: LEVOTHYROXINE 150 MCG TABLET PO SCH (07:48)
[2017-04-29] MEDS: CALCIUM ACETATE 667 MG CAPSULE PO SCH ×3 (07:49→17:02)
[2017-04-29] MEDS: DOCUSATE SODIUM 100 MG CAPSULE PO SCH ×2 (07:49→20:51)
[2017-04-29] MEDS: predniSONE 20 MG TABLET PO SCH (07:49)
[2017-04-29] MEDS: MULTIVIT,THER IRON,CA,FA & MIN 1 TABLET PO SCH (07:50)
[2017-04-29] MEDS: DOXAZOSIN 4 MG TABLET PO SCH (07:50)
[2017-04-29] MEDS: FERROUS SULFATE 325 MG TABLET PO SCH ×4 (07:50→20:51)
[2017-04-29] MEDS: hydrALAZINE 25 MG TABLET PO SCH ×3 (07:50→20:52)
[2017-04-29] MEDS: ATORVASTATIN 20 MG TABLET PO SCH (07:50)
[2017-04-29] MEDS: ALLOPURINOL 100 MG TABLET PO SCH (07:51)
[2017-04-29] MEDS: HEPARIN 5,000 UNIT/ML VIAL SQ SCH (07:52)
[2017-04-29] MEDS: INSULIN GLARGINE, HUMAN 1 UNIT/0.01 ML SQ SCH ×2 (07:56→20:49)
[2017-04-29] MEDS: INSULIN LISPRO 1 UNIT/0.01 ML UNIT SQ SCH ×4 (07:57→20:49)
[2017-04-29] MEDS: THEOPHYLLINE ANHYDROUS 400 MG TAB.XL.24H PO SCH ×2 (07:57→20:52)
[2017-04-29] MEDS: ERTAPENEM 0.5 GM in 0.9 % SODIUM CHLORIDE 50 ML IV SCH (09:30)
--- NOTE | 2017-04-29 10:36 | Internal Med Progress Note ---
Medical - PN: Subj Patient information: Note initiated : 04/29/17 at 10:25 am Service Date, if different from initiated Date: [] Patient: Bart Pagan a 57 y/o M admitted on 04/18/17 for Debridement of Wound Right Foot. Chief Complaint: [] Interval history: Mr. Pagan is a 57 year old M who underwentright foot metatarsal amputation on March 07. Patient has been recovering well and has been following up with wound care. On Monday patient saw on care physician and underwent treatment along with 2 stitches. Over the weekend patient has noted increasing swelling and pain discharge. By Monday patient started experiencing shaking chills and drenching sweats long with excessive exhaustion. Today at work patient was unable to bear weight due to increasing pain and swelling along with associated fever. He notices bandage soaked in bloody discharge. he is afebrile 102. e was subsequently directed by Dr. Cameron's officeto ER. initial workup was significant for elevated white count along with fever and sepsis. hospitalist service was consulted after case was discussed with Dr. Maresor admission initiation of antibiotics and likely initiation of hyperbaric treatments. at the time of examination patient is alert oriented. He denies any active distress except for amputation stump pain and swelling. he endorses to fevers. Denies diarrhea dysuria headache photophobia skin rash or joint pain or weight loss. 04/19: Pt seen examined, febrile overnight, blood cx positive, on vancomycin, antibiotics changed from rocephin ./ clinda to zosyn. Patient on pn tylenol. HBOT rx done today and he is s/p wound debridement by Dr Mccauley. Plan to continue antibiotics for now. LIkely staph related infection, but given DM wound will cover from gram neg as well as anerobic infections. Patient otherwise is doing well, denies any acute complaints besdies pain in the leg and some mechanical back discomfort. his labs show worsening renal functino, nephrology following, IV fluid rate increased, and torsemide held. 04/20-patient ongoing hyperbaric treatment. Pansensitive MSSA. Continue Zosyn. Ongoing wound and osteomyelitis management by Dr. Cameron.post debridement day 1. Wound care physician plans to continue HBO reatment/wound VAC placement. Creatinine 4.9. renal issues managed by nephrology. Hemoglobin 7.3. Transfuse 2 units PRBC. Surveillance cultures pending. ok count 11.9. persistent bandemia. vernight persistently shaking chills fever. MAXIMUM TEMPERATURE 101. 9/1. Patient doing well. No overnight events and rested well. Patient however is anxious about treatment plan given underlying osteomyelitis he would rather want further amputation to remove infected bone. I explained the current treatment is being directed as per wound care physician's ecommendations including debridement/hBO/ IV antibiotics. nursing staff expressed concerns about elevated blood sugars. Patient restarted on 20 twice a day Lantus. Improved fevers shaking chills. Tolerating hyperbaric oxygen treatments well. MSSA on blood culture. Surveillance blood cultures negative so far. white count down to 11.7. BUN and 73 creatinine 4.7.off vancomycin. Continue Zosyn. 04/22: Patient seen examined, no acute overnight issues, patient sitting in the chair and is tolerating po diet well, He has a wound vac on by Dr Mccauley, plans for contiued HBOT for now. likely needs 10 treatments, next scheduled for monday and last treatment likely Monday. Continue with present antibiotics. labs stable. creat improving to 4.5, nephrology following continue to monitor. 04/23: Pt seen examined, still has low grade leucocytosis but no other symptoms, etiology steroids? He remains on antibiotics as per his microbiology. Lab show slight worsening in creatinine to 4.7 today. clinically not volume overloaded, will give 1 L normal Saline and reassess in AM. continue IV Abx, Wound care plan as per wound care surgery. 04/24: patient seen examined, no acute ovenright issues reported, but the patients blood work shows rising WBC count, pt feels that his infection may be coming back, and the patient has significantly worsening renal function. Creat is now 5.7 despite 1L fluid given yesterday. The patients UA has RBC and few wbc, culture pending, patient cxr shows some atelectasis, At this time I am not sure if the patient wound is completely debrided. I reviewed with Case with Dr Mccauley, and plan to get an MRI of the foot for further evaluation. Dr Garcia evaluated the patient and patients workup is pending. etiology of hematuria? Pt did not have a carrero, renal usg ordered. Antibiotics changed from zosyn to ertapenum. 04/25: patient seen, examined, overnight events noted, patient has no acute complaints but is feeling much more tired and weak. The patient also reports some amount of nausea. No vomiting. Denies any chest pain, denies any shortness of breath. Denies any palpitations. The patient's creatinine is worsening, the patient was Placed on telemetry and the plan was to initiate dialysis. On telemetry, it was noted that the patient had significant bradycardia with heart rates and 28-40. The patient does have some sinus pauses. Patient's troponin was elevated at 0.22, EKG reveals sinus bradycardia. I called Dr. Gonzalez was the digital associate automobile contract clerk at [facility], as well as the patient's primary digital associate. He reviewed the patient's history and is aware of the chronic bradycardia issues, but was not aware of the heart. It was this low. Given that the patient has an active infection He noted that the patient is not a candidate for a pacemaker placement at this point in time. He noted that the troponin is likely secondary to hypoperfusion and no specific management was warranted for same. The patient has had a negative stress test in 2014. He advised to start the patient on theophylline 200 mg twice a day to see if it helps with the bradycardia. He also said to use isoproterenol if heart rate drops too low or during a procedure if needed given very low heart rate, but no contraindication for any procedure. Did not think pt needed to be transferred to higher center. 04/26: patient seen and examined, doing well this morning, denied any nausea, vomiting, abdominal pain or chest pain. Denies any palpitations. Labs reviewed with him. Creatinine continues to worsen. Patient did have a bowel movement and urine output today around 240cc dark urine, he feels better nwo that the HR is better, now back > 40 Plan for placement of non tunneled catheter today and start on Hemodialysis. Continue steroids for possible drug induced renal failure continue with IV antibiotics for infection. MRI reviewed, no acute infection, according to Surgery. 04/27: patient seen and examined, doing well, no acute complaints. Had dialysis done yesterday. Heart rate is better. In the 50s to 60s. He is scheduled to have dialysis again this afternoon. He is able to tolerate by mouth well. No diarrhea, no constipation. Did take some urine today. 04/28: The patient seen examined, no acute overnight events, HR > 50, no new concerns. Patient is scheduled to get a tunneled catheter today. Plan of care discussed with nephrology and deck specialist. Dr Cameron does not believe the patient has osteomyelitis, and MRI changes seen are post operative changes. He is not inclined to use IV antibiotics for 6 weeks. Plan then for oral antibiotics as per sensitivities at discharge. Pt remains oliguric, patient still on steroids and on HD as per nephrology. 04/29: Pt seen examined, s/p tunnled catheter placement yesterday, developed bleeding at the catheter insertion site. pressure applied and dressing changed. The patient also was given 20mcg of ddavp. likely uremic bleeding Bp stable, HR ?> 50 and patient does not have any other concerns the patient will have HD today. continue with IV antibiotics Pertinent ROS: Denies headache, dizziness Denies chest pain, palpitations Denies cough or shortness of breath Denies abdominal pain, nausea or vomiting. - Constitutional Vitals: Vital Signs Temp Pulse Resp BP Pulse Ox 98.5 F 55 L 20 157/59 97 04/29/17 03:24 04/29/17 03:24 04/29/17 03:24 04/29/17 03:24 04/29/17 03:24 Period Temp Pulse Resp BP Sys/Mancini Pulse Ox Last 24 Hr 98.0 F-98.7 F 53-64 18-20 157-180/59-80 93-97 Intake and Output 04/28/17 04/29/17 04/29/17 21:59 05:59 13:59 Intake Total 0 / 0 350 / 350 Balance 0 / 0 350 / 350 Weight 256 lb 8 oz Intake & Output: Intake & Output 04/28/17 04/29/17 04/29/17 21:59 05:59 13:59 Intake Total 0 / 0 350 / 350 Balance 0 / 0 350 / 350 Weight 256 lb 8 oz Intake: Oral 0 / 0 350 / 350 Exam: Constitutional; Afebrile, cooperative, alert, not in distress. Eyes- No icterus, , No periorbital swelling Ears- Ext ear normal, hearing normal to conversation. Neck- Midline trachea, supple Respiratory system: Air Entry equal on both sides, No crackles or wheezing, no rhonchi. CVS- Rate rhythm regular, S1,S2 heard, no gallop, no rub. Abdomen- Soft nontender abdomen, no organomegaly, no tenderness, no guarding or rigidity, FRAME EXPANDER- AOOx3, moving all extremities, no gross focal deficit noted. Medical - PN: Obj Da - Labs CBC & Chem 7: 04/29/17 04:00 04/29/17 04:00 Labs: Abnormal Lab Results 04/29/17 04/29/17 04/28/17 04:00 04:00 04:00 WBC RBC 2.78 L Hgb 7.9 L Hct 24.2 L RDW 15.7 H Gran % 87.1 H Lymph % (Auto) 7.3 L Gran # 8.6 H Lymph # (Auto) 0.7 L Sodium 127 L 130 L Chloride 87 L 89 L Carbon Dioxide 21 L Anion Gap 19.0 H 17.0 H BUN 88 H 73 H Creatinine 9.0 H* 7.7 H* Glucose 231 H 255 H Uric Acid 8.7 H Calcium 8.4 L 8.2 L Phosphorus 7.4 H* 6.6 H* Magnesium 2.9 H 2.9 H Lactate Dehydrogenase 261 H Albumin 2.8 L 2.9 L Globulin 3.8 H Albumin/Globulin Ratio 0.8 L 0.8 L 04/28/17 04/27/17 04/27/17 04:00 04:00 04:00 WBC 11.4 H RBC 2.95 L 3.43 L Hgb 8.5 L 10.1 L Hct 25.8 L 29.8 L RDW 15.9 H 16.0 H Gran % 89.4 H 91.4 H Lymph % (Auto) 5.7 L 5.2 L Gran # 10.1 H 8.6 H Lymph # (Auto) 0.6 L 0.5 L Sodium 129 L Chloride 89 L Carbon Dioxide 21 L Anion Gap 19.0 H BUN 83 H Creatinine 7.8 H* Glucose 201 H Uric Acid 9.4 H Calcium 8.3 L Phosphorus 7.2 H* Magnesium 3.0 H Lactate Dehydrogenase 281 H Albumin 3.0 L Globulin 3.9 H Albumin/Globulin Ratio 0.8 L Meds: Medications Acetaminophen (Tylenol) 650 mg PO Q4-6HP PRN PRN Reason: PAIN/FEVER > 101 Allopurinol (Zyloprim) 200 mg PO QDAY [facility] Last Admin: 04/29/17 07:51 Dose: 200 mg Atorvastatin Calcium (Lipitor) 40 mg PO DAILY [facility] Last Admin: 04/29/17 07:50 Dose: 40 mg Calcium Acetate (Phoslo) 667 mg PO TIDCC [facility] Last Admin: 04/29/17 07:49 Dose: 667 mg Dextrose (Dextrose 50%) 0 ml IV UD PRN PRN Reason: Hypoglycemia Diagnostic Test (Pha) (Accu-Chek) 1 each FS ACHS [facility] Last Admin: 04/29/17 07:51 Dose: 1 each Docusate Sodium (Colace) 100 mg PO BID [facility] Last Admin: 04/29/17 07:49 Dose: 100 mg Doxazosin Mesylate (Cardura) 4 mg PO DAILY [facility] Last Admin: 04/29/17 07:50 Dose: 4 mg Famotidine (Pepcid) 20 mg IV HS [facility] Last Admin: 04/28/17 20:41 Dose: 20 mg Ferrous Sulfate (Ferrous Sulfate) 325 mg PO CCHS [facility] Last Admin: 04/29/17 07:50 Dose: 325 mg Glucose (Insta-Glucose) 15 gm PO PRN PRN PRN Reason: Hypoglycemia Guaifenesin/Codeine Phosphate (Robitussin Ac) 10 ml PO Q4HP PRN PRN Reason: Cough Heparin Sodium (Porcine) (Heparin Flush) 2 ml IV Q12 [facility] Last Admin: 04/29/17 07:52 Dose: Not Given Heparin Sodium (Porcine) (Heparin) 5,000 unit SQ Q12 [facility] Last Admin: 04/29/17 07:52 Dose: Not Given Hydralazine HCl (Apresoline) 10 mg IV Q4-6HP PRN PRN Reason: Hypertension Last Admin: 04/27/17 09:08 Dose: 10 mg Hydralazine HCl (Apresoline) 50 mg PO TID [facility] Last Admin: 04/29/17 07:50 Dose: 50 mg Magnesium Sulfate (Magnesium Sulfate) 2 gm in 50 mls @ 50 mls/hr IV UD PRN PRN Reason: MG = or < 1.7 Acetaminophen (Ofirmev) 1,000 mg in 100 mls @ 200 mls/hr IV Q6HP PRN PRN Reason: PAIN/FEVER > 101 Ertapenem 0.5 gm/ Sodium (Chloride) 50 mls @ 100 mls/hr IV Q24H [facility] Last Infusion: 04/28/17 10:25 Dose: Infused Insulin Glargine (Lantus) 35 unit SQ BID [facility] Last Admin: 04/29/17 07:56 Dose: 35 unit Insulin Human Lispro (Humalog) 0 unit SQ ACHS [facility] PRN Reason: Protocol Last Admin: 04/29/17 07:57 Dose: 4 unit Iron Carb/Multivit/[place]/Folic Acid (Multivitamin W/Minerals) 1 tab PO DAILY [facility] Last Admin: 04/29/17 07:50 Dose: 1 tab Levothyroxine Sodium (Synthroid) [facility] Last Admin: 04/29/17 07:48 Dose: 300 mcg Lorazepam (Ativan) 1 mg PO DAILYP PRN PRN Reason: ANXIETY/SEDATION Last Admin: 04/28/17 17:08 Dose: 1 mg Morphine Sulfate (Morphine) 2 mg IV TIDP PRN PRN Reason: Pain Ondansetron HCl (Zofran) 4 mg IV Q4-6HP PRN PRN Reason: Nausea And Vomiting Oxycodone HCl (Roxicodone) 5 mg PO Q4HP PRN PRN Reason: Pain Last Admin: 04/28/17 20:50 Dose: 5 mg Potassium Chloride (Klor-Con) 40 meq PO DAILYP PRN PRN Reason: K+ < 3.5 Prednisone (Prednisone) 40 mg PO QAC [facility] Last Admin: 04/29/17 07:49 Dose: 40 mg Senna/Docusate Sodium (Senna Plus Tablet) 1 tab PO HS [facility] Last Admin: 04/28/17 20:31 Dose: Not Given Sodium Chloride (Saline Flush) 10 ml IV UD PRN PRN Reason: FLUSH Sodium Chloride (Saline Flush) 10 ml IV Q8 [facility] Last Admin: 04/29/17 05:39 Dose: 10 ml Theophylline (Uniphyll) 200 mg PO BID [facility] Last Admin: 04/29/17 07:57 Dose: 200 mg Medical - PN: A/P - Time Spent With Patient Total time spent is greater than 50% in coordination of care (as documented) at patient's floor/unit and/or counseling patient: - Narrative A/P Narrative: A/P Infected Diabetic Ulcer: s/p debridement, MSSA in the wound and blood cx, was on zosyn switched to ertapenum ( zosyn as cause of renal failure? ) MRI of the foot reviewed, no residual infection as per surgery. off wound vac. Management as per wound care. Plan for oral antibiotics at discharge. Pt ok with the plan. Staph Bacteremia: MSSA On ertapenum now. repeat cx neg, echo neg. 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 Hr > 50 for now. HTN bp uncontrolled,better now after adding doxazosin, continue with hydralazine 50mg TID LA on CKD: due to AIN secondary to zosyn seems likely at this time. pt on HD nephrology following. Osteomyelitis of the foot: As per Dr Cameron there is no osteomyelitis MRI/ XRay findings are reactive, ok for oral abx and follow up with ID as outpatient. Sepsis resolved. DM type 2 on insulin, uncontrolled :glucose high, titrate insulin to keep glucose < 180, increase lantus from 35BID to 40units bid, med sliding scale protocol for now. afib: rate controlled, off anticoagulation now as plan to place tunneled cath. H/o DVT on Rivaroxaban held now for procedure. will have to consider alternative anti coagulation agent, eliquis of coumadin given renal failure. SCD for dvt prophylaxis, hold hep given bleeding from cath site, resume once bleeding stops. Anemia: due to infection, ckd, and post op loss? s/p transfusion, hb stable now , monitor. Will need aranesph as per nephrology as outpatient. Hypothyroidism: Continue levothyroxine Full code Medical - PN: Qual - VTE Deep Vein Thrombosis/Pulmonary Embolism Present on Admission: No
--- NOTE | 2017-04-29 20:11 | Nephrology Progress Note ---
Subjective Patient information: Note initiated : 04/29/17 at 8:08 pm Service Date, if different from initiated Date: [] Patient: Bart Pagan 57 y/o M admitted on 04/18/17 for Debridement of Wound Right Foot. Chief Complaint: [] Principal diagnosis: sepsis Interval history: had TCC placed yesterday and had bleeding at the exite site, dressing change done yesterday, DDAVP given x 1 and pressure applied, but dressing was soaked again today patient has no new complaints today denies SOB, CP, dizziness No edema no nausea,vomiting no other significant events reported Pertinent ROS: as above Objective - Vital Signs Vital signs: Vital Signs Temp Pulse Pulse Resp BP BP BP 04/29/17 20:00 98.1 F 58 L 18 143/43 04/29/17 18:37 97.9 F 64 18 150/61 04/29/17 16:45 63 150/70 04/29/17 16:30 68 134/91 04/29/17 16:15 64 143/95 04/29/17 16:00 98.8 F 59 L 62 18 162/54 156/69 04/29/17 15:45 58 L 159/75 04/29/17 15:30 51 L 156/69 04/29/17 15:15 55 L 152/58 04/29/17 15:00 52 L 153/75 04/29/17 14:45 57 L 163/70 04/29/17 14:35 54 L 150/54 04/29/17 14:15 55 L 149/70 04/29/17 14:00 53 L 144/57 04/29/17 13:45 50 L 145/58 04/29/17 13:30 54 L 139/52 04/29/17 13:15 50 L 147/49 04/29/17 13:00 51 L 151/65 04/29/17 12:52 98.2 F 52 L 158/69 04/29/17 12:45 51 L 152/56 04/29/17 12:00 98.2 F 52 L 20 158/69 04/29/17 08:00 98.7 F 64 04/29/17 03:24 98.5 F 55 L 20 157/59 04/29/17 00:00 98.1 F 60 18 166/66 Pulse Ox 04/29/17 20:00 96 04/29/17 18:37 96 04/29/17 16:45 04/29/17 16:30 04/29/17 16:15 04/29/17 16:00 97 04/29/17 15:45 04/29/17 15:30 04/29/17 15:15 04/29/17 15:00 04/29/17 14:45 04/29/17 14:35 04/29/17 14:15 04/29/17 14:00 04/29/17 13:45 04/29/17 13:30 04/29/17 13:15 04/29/17 13:00 04/29/17 12:52 04/29/17 12:45 04/29/17 12:00 96 04/29/17 08:00 04/29/17 03:24 97 04/29/17 00:00 94 Intake and Output 04/29/17 04/29/17 04/29/17 05:59 13:59 21:59 Intake Total 350 / 350 50 / 50 Output Total 5150 / 5150 Balance 350 / 350 50 / 50 -5150 / -5150 Intake: IV 50 / 50 INVanz 0.5 GM In Sodium 50 / 50 Chloride 0.9% 50 ml @ 100 mls/hr IV Q24H JUANA Rx#: [id number] Oral 350 / 350 Output: Void Amount 150 / 150 Hemodialysis UF 5000 / 5000 Other: Weight 245 lb 8 oz Patient Weight 04/30/17 05:59 Weight 245 lb 8 oz Intake & Output: Intake & Output 04/29/17 04/29/17 04/29/17 05:59 13:59 21:59 Intake Total 350 / 350 50 / 50 Output Total 5150 / 5150 Balance 350 / 350 50 / 50 -5150 / -5150 Weight 245 lb 8 oz Intake: IV 50 / 50 INVanz 0.5 GM In Sodium 50 / 50 Chloride 0.9% 50 ml @ 100 mls/hr IV Q24H JUANA Rx#: [id number] Oral 350 / 350 Output: Void Amount 150 / 150 Hemodialysis UF 5000 / 5000 - General Appearance General appearance: appears started age, obese EENT: mucous membranes moist Neck: no JVD Respiratory: clear Cardiology: no edema, normal S1 (bradycardic), normal S2 Gastrointestinal: no tenderness, no masses Integumentary: warm and dry Neurologic: no asterixis, alert and oriented x3 Musculoskeletal: no cyanosis, no clubbing Psychiatric: mood/affect appropriate - Lab 04/29/17 04:00 04/29/17 04:00 Most recent lab results Calcium 8.4 mg/dl (8.6-10.4) L 04/29/17 04:00 Phosphorus 7.4 mg/dL (2.7-4.5) H* 04/29/17 04:00 Magnesium 2.9 mg/dL (1.6-2.5) H 04/29/17 04:00 Assessment and Plan (1) Acute on chronic renal failure renal function continues to get worse likely AIN, doubt post infectious GN but is a possibility, complements were normal, urine eos + no hyperkalemia, mild acidosis Anemia, Hb at 10.1 no s/o fluid excess HTN: improved control anemia: Hb declined some likely from bleeding, on iron supplements continue oral prednisone HD today for 4 hrs using 3K/2.5 ca dialysate, revaclear dialyser, AP568TD/MIN, QD 800ML/MIN, UF GOAL OF 2-2.5l next HD planned for monday will follow along appreciate hospitalist help in managing this patient Status: Acute
[2017-04-29] MEDS: oxyCODONE HCL 5 MG TABLET PO PRN (20:50)
[2017-04-29] MEDS: FAMOTIDINE/PF 20 MG/2 ML VIAL IV SCH (20:50)
[2017-04-29] MEDS: SENNOSIDES/DOCUSATE SODIUM 1 TAB TABLET PO SCH (20:52)
[2017-04-29] MEDS: LORazepam 1 MG TABLET PO PRN (21:40)
[2017-04-30 00:07] LABS: ALT/SGPT 10 U/l (0-40); Albumin 2.9 gm/dL (3.2-5.2); Albumin/Globulin Ratio 0.8 (1.0-2.3); Alkaline Phosphatase 59 U/L (39-117); Bilirubin,Direct < 0.2 mg/dL (0.0-0.3); Blood Urea Nitrogen 43 mg/dl (6-20); Gamma Glutamyl Transpeptidase 58 U/L (8-61); Magnesium 2.4 mg/dL (1.6-2.5); Uric Acid 4.4 mg/dL (2.5-8.0)
[2017-04-30] MEDS: 0.9 % SODIUM CHLORIDE 10 ML SYRINGE IV SCH ×3 (05:20→20:32)
[2017-04-30 07:14] LABS: Basophils # (Auto) 0 K/mcL (0.0-0.3); Basophils % (Auto) 0.2 % (0.0-2.0); Eosinophils # (Auto) 0.1 K/mcL (0.0-0.7); Granulocytes % (Auto) 84.5 % (38.0-78.0); Lymphocytes # (Auto) 0.9 K/mcL (1.5-4.8); Lymphocytes % (Auto) 8.3 % (15.5-49.0); Mean Cell Volume 88.2 fL (80.0-100.0); Mean Corpuscular HGB Conc 32.4 g/dL (31.0-36.0); Mean Corpuscular Hemoglobin 28.6 pg (26.0-34.0); Monocytes # (Auto) 0.7 K/mcL (0.1-0.9); Platelet Count 373 K/mcL (140-440); RBC 2.71 M/mcL (4.50-5.90); Red Cell Distribution Width 16.1 % (11.5-14.5)
[2017-04-30] MEDS: LEVOTHYROXINE 150 MCG TABLET PO SCH (07:14)
[2017-04-30] MEDS: INSULIN LISPRO 1 UNIT/0.01 ML UNIT SQ SCH ×4 (07:15→20:33)
[2017-04-30 07:58] LABS: ALT/SGPT 11 U/l (0-40); Albumin 2.8 gm/dL (3.2-5.2); Albumin/Globulin Ratio 0.8 (1.0-2.3); Alkaline Phosphatase 57 U/L (39-117); Bilirubin,Direct < 0.2 mg/dL (0.0-0.3); Blood Urea Nitrogen 47 mg/dl (6-20); Gamma Glutamyl Transpeptidase 57 U/L (8-61); Magnesium 2.5 mg/dL (1.6-2.5); Uric Acid 5.2 mg/dL (2.5-8.0)
[2017-04-30] MEDS: FERROUS SULFATE 325 MG TABLET PO SCH ×4 (07:59→20:31)
[2017-04-30] MEDS: predniSONE 20 MG TABLET PO SCH (07:59)
[2017-04-30] MEDS: CALCIUM ACETATE 667 MG CAPSULE PO SCH ×3 (07:59→17:15)
[2017-04-30] MEDS: ATORVASTATIN 20 MG TABLET PO SCH (09:14)
[2017-04-30] MEDS: ALLOPURINOL 100 MG TABLET PO SCH (09:14)
[2017-04-30] MEDS: DOCUSATE SODIUM 100 MG CAPSULE PO SCH ×2 (09:15→20:32)
[2017-04-30] MEDS: DOXAZOSIN 4 MG TABLET PO SCH (09:15)
[2017-04-30] MEDS: MULTIVIT,THER IRON,CA,FA & MIN 1 TABLET PO SCH (09:15)
[2017-04-30] MEDS: hydrALAZINE 25 MG TABLET PO SCH ×3 (09:16→20:31)
[2017-04-30] MEDS: ERTAPENEM 0.5 GM in 0.9 % SODIUM CHLORIDE 50 ML IV SCH (09:24)
[2017-04-30] MEDS: THEOPHYLLINE ANHYDROUS 400 MG TAB.XL.24H PO SCH ×2 (10:26→21:27)
[2017-04-30] MEDS: INSULIN GLARGINE, HUMAN 1 UNIT/0.01 ML SQ SCH ×2 (10:26→20:33)
[2017-04-30] MEDS: hydrALAZINE 20 MG/ML VIAL IV PRN (13:14)
--- NOTE | 2017-04-30 16:55 | Internal Med Progress Note ---
Medical - PN: Subj Patient information: Note initiated : 04/30/17 at 4:53 pm Service Date, if different from initiated Date: [] Patient: Bart Pagan a 57 y/o M admitted on 04/18/17 for Debridement of Wound Right Foot. Chief Complaint: [] Interval history: Mr. Pagan is a 57 year old M who underwentright foot metatarsal amputation on March 07. Patient has been recovering well and has been following up with wound care. On Monday patient saw on care physician and underwent treatment along with 2 stitches. Over the weekend patient has noted increasing swelling and pain discharge. By Monday patient started experiencing shaking chills and drenching sweats long with excessive exhaustion. Today at work patient was unable to bear weight due to increasing pain and swelling along with associated fever. He notices bandage soaked in bloody discharge. he is afebrile 102. e was subsequently directed by Dr. Cameron's officeto ER. initial workup was significant for elevated white count along with fever and sepsis. hospitalist service was consulted after case was discussed with Dr. Maresor admission initiation of antibiotics and likely initiation of hyperbaric treatments. at the time of examination patient is alert oriented. He denies any active distress except for amputation stump pain and swelling. he endorses to fevers. Denies diarrhea dysuria headache photophobia skin rash or joint pain or weight loss. 04/19: Pt seen examined, febrile overnight, blood cx positive, on vancomycin, antibiotics changed from rocephin ./ clinda to zosyn. Patient on pn tylenol. HBOT rx done today and he is s/p wound debridement by Dr Mccauley. Plan to continue antibiotics for now. LIkely staph related infection, but given DM wound will cover from gram neg as well as anerobic infections. Patient otherwise is doing well, denies any acute complaints besdies pain in the leg and some mechanical back discomfort. his labs show worsening renal functino, nephrology following, IV fluid rate increased, and torsemide held. 04/20-patient ongoing hyperbaric treatment. Pansensitive MSSA. Continue Zosyn. Ongoing wound and osteomyelitis management by Dr. Cameron.post debridement day 1. Wound care physician plans to continue HBO reatment/wound VAC placement. Creatinine 4.9. renal issues managed by nephrology. Hemoglobin 7.3. Transfuse 2 units PRBC. Surveillance cultures pending. ok count 11.9. persistent bandemia. vernight persistently shaking chills fever. MAXIMUM TEMPERATURE 101. 9/1. Patient doing well. No overnight events and rested well. Patient however is anxious about treatment plan given underlying osteomyelitis he would rather want further amputation to remove infected bone. I explained the current treatment is being directed as per wound care physician's ecommendations including debridement/hBO/ IV antibiotics. nursing staff expressed concerns about elevated blood sugars. Patient restarted on 20 twice a day Lantus. Improved fevers shaking chills. Tolerating hyperbaric oxygen treatments well. MSSA on blood culture. Surveillance blood cultures negative so far. white count down to 11.7. BUN and 73 creatinine 4.7.off vancomycin. Continue Zosyn. 04/22: Patient seen examined, no acute overnight issues, patient sitting in the chair and is tolerating po diet well, He has a wound vac on by Dr Mccauley, plans for contiued HBOT for now. likely needs 10 treatments, next scheduled for monday and last treatment likely Monday. Continue with present antibiotics. labs stable. creat improving to 4.5, nephrology following continue to monitor. 04/23: Pt seen examined, still has low grade leucocytosis but no other symptoms, etiology steroids? He remains on antibiotics as per his microbiology. Lab show slight worsening in creatinine to 4.7 today. clinically not volume overloaded, will give 1 L normal Saline and reassess in AM. continue IV Abx, Wound care plan as per wound care surgery. 04/24: patient seen examined, no acute ovenright issues reported, but the patients blood work shows rising WBC count, pt feels that his infection may be coming back, and the patient has significantly worsening renal function. Creat is now 5.7 despite 1L fluid given yesterday. The patients UA has RBC and few wbc, culture pending, patient cxr shows some atelectasis, At this time I am not sure if the patient wound is completely debrided. I reviewed with Case with Dr Mccauley, and plan to get an MRI of the foot for further evaluation. Dr Garcia evaluated the patient and patients workup is pending. etiology of hematuria? Pt did not have a carrero, renal usg ordered. Antibiotics changed from zosyn to ertapenum. 04/25: patient seen, examined, overnight events noted, patient has no acute complaints but is feeling much more tired and weak. The patient also reports some amount of nausea. No vomiting. Denies any chest pain, denies any shortness of breath. Denies any palpitations. The patient's creatinine is worsening, the patient was Placed on telemetry and the plan was to initiate dialysis. On telemetry, it was noted that the patient had significant bradycardia with heart rates and 28-40. The patient does have some sinus pauses. Patient's troponin was elevated at 0.22, EKG reveals sinus bradycardia. I called Dr. Gonzalez was the etl architect train controller at [facility], as well as the patient's primary etl architect. He reviewed the patient's history and is aware of the chronic bradycardia issues, but was not aware of the heart. It was this low. Given that the patient has an active infection He noted that the patient is not a candidate for a pacemaker placement at this point in time. He noted that the troponin is likely secondary to hypoperfusion and no specific management was warranted for same. The patient has had a negative stress test in 2014. He advised to start the patient on theophylline 200 mg twice a day to see if it helps with the bradycardia. He also said to use isoproterenol if heart rate drops too low or during a procedure if needed given very low heart rate, but no contraindication for any procedure. Did not think pt needed to be transferred to higher center. 04/26: patient seen and examined, doing well this morning, denied any nausea, vomiting, abdominal pain or chest pain. Denies any palpitations. Labs reviewed with him. Creatinine continues to worsen. Patient did have a bowel movement and urine output today around 240cc dark urine, he feels better nwo that the HR is better, now back > 40 Plan for placement of non tunneled catheter today and start on Hemodialysis. Continue steroids for possible drug induced renal failure continue with IV antibiotics for infection. MRI reviewed, no acute infection, according to Surgery. 04/27: patient seen and examined, doing well, no acute complaints. Had dialysis done yesterday. Heart rate is better. In the 50s to 60s. He is scheduled to have dialysis again this afternoon. He is able to tolerate by mouth well. No diarrhea, no constipation. Did take some urine today. 04/28: The patient seen examined, no acute overnight events, HR > 50, no new concerns. Patient is scheduled to get a tunneled catheter today. Plan of care discussed with nephrology and digital marketing specialist. Dr Cameron does not believe the patient has osteomyelitis, and MRI changes seen are post operative changes. He is not inclined to use IV antibiotics for 6 weeks. Plan then for oral antibiotics as per sensitivities at discharge. Pt remains oliguric, patient still on steroids and on HD as per nephrology. 04/29: Pt seen examined, s/p tunnled catheter placement yesterday, developed bleeding at the catheter insertion site. pressure applied and dressing changed. The patient also was given 20mcg of ddavp. likely uremic bleeding Bp stable, HR ?> 50 and patient does not have any other concerns the patient will have HD today. continue with IV antibiotics 04/30 patient seen examined, no acute overnight events, doing well, slept ok, ? run of [employer] overnight, pt was moving around a bit, and was also in afib. labs ok. likely ashmans phenomen. bp stable, hr > 50, theophyline levels at goal. plan for D/c tomorrow if ok from nephrology and wound care. plan to switch IV to orals for antibiotics. Pertinent ROS: Denies headache, dizziness Denies chest pain, palpitations Denies cough or shortness of breath Denies abdominal pain, nausea or vomiting. - Constitutional Vitals: Vital Signs Temp Pulse Resp BP Pulse Ox 98.4 F 55 L 20 167/67 97 04/30/17 16:00 04/30/17 04:00 04/30/17 16:00 04/30/17 16:00 04/30/17 16:00 Period Temp Pulse Resp BP Sys/Mancini Pulse Ox Last 24 Hr 97.3 F-98.4 F 40-69 16-20 143-197/43-69 95-99 Intake and Output 04/30/17 04/30/17 04/30/17 05:59 13:59 21:59 Intake Total 240 / 240 170 / 170 50 / 50 Output Total 50 / 50 Balance 240 / 240 170 / 170 0 / 0 Intake & Output: Intake & Output 09/10/17 09/10/17 09/10/17 05:59 13:59 21:59 Intake Total 240 / 240 170 / 170 50 / 50 Output Total 50 / 50 Balance 240 / 240 170 / 170 0 / 0 Intake: IV 50 / 50 INVanz 0.5 GM In Sodium 50 / 50 Chloride 0.9% 50 ml @ 100 mls/hr IV Q24H [facility] Rx#: [id number] Oral 240 / 240 120 / 120 50 / 50 Output: Void Amount 50 / 50 Other: Meal Breakfast Percent of Meal Consumed 100% Feeding Ability Independent # Voids 0 Exam: Constitutional; Afebrile, cooperative, alert, not in distress. Eyes- No icterus, , No periorbital swelling Ears- Ext ear normal, hearing normal to conversation. Neck- Midline trachea, supple Respiratory system: Air Entry equal on both sides, No crackles or wheezing, no rhonchi. CVS- Rate braycardic rhythm regular, S1,S2 heard, no gallop, no rub. Abdomen- Soft nontender abdomen, no organomegaly, no tenderness, no guarding or rigidity, BUSINESS CONTROL SPECIALIST- AOOx3, moving all extremities, no gross focal deficit noted. Medical - PN: Obj Da - Labs CBC & Chem 7: 04/30/17 05:50 04/30/17 05:50 Labs: Abnormal Lab Results 04/30/17 04/30/17 04/30/17 23:10 05:50 05:50 WBC RBC 2.71 L Hgb 7.8 L Hct 23.9 L RDW 16.1 H Gran % 84.5 H Lymph % (Auto) 8.3 L Gran # 9.3 H Lymph # (Auto) 0.9 L Sodium 132 L Chloride 92 L Carbon Dioxide Anion Gap BUN 47 H Creatinine 6.0 H* Glucose Uric Acid Calcium 8.0 L Phosphorus 5.6 H Magnesium Lactate Dehydrogenase Albumin 2.8 L Globulin Albumin/Globulin Ratio 0.8 L Theophylline 5.5 H 04/29/17 04/29/17 04/29/17 23:10 23:10 04:00 WBC RBC Hgb 7.9 L Hct 23.9 L RDW Gran % Lymph % (Auto) Gran # Lymph # (Auto) Sodium 132 L 127 L Chloride 91 L 87 L Carbon Dioxide 21 L Anion Gap 19.0 H BUN 43 H 88 H Creatinine 5.4 H* 9.0 H* Glucose 153 H 231 H Uric Acid 8.7 H Calcium 8.1 L 8.4 L Phosphorus 4.8 H 7.4 H* Magnesium 2.9 H Lactate Dehydrogenase Albumin 2.9 L 2.8 L Globulin Albumin/Globulin Ratio 0.8 L 0.8 L Theophylline 04/29/17 04/28/17 04/28/17 04:00 04:00 04:00 WBC 11.4 H RBC 2.78 L 2.95 L Hgb 7.9 L 8.5 L Hct 24.2 L 25.8 L RDW 15.7 H 15.9 H Gran % 87.1 H 89.4 H Lymph % (Auto) 7.3 L 5.7 L Gran # 8.6 H 10.1 H Lymph # (Auto) 0.7 L 0.6 L Sodium 130 L Chloride 89 L Carbon Dioxide Anion Gap 17.0 H BUN 73 H Creatinine 7.7 H* Glucose 255 H Uric Acid Calcium 8.2 L Phosphorus 6.6 H* Magnesium 2.9 H Lactate Dehydrogenase 261 H Albumin 2.9 L Globulin 3.8 H Albumin/Globulin Ratio 0.8 L Theophylline Meds: Medications Acetaminophen (Tylenol) 650 mg PO Q4-6HP PRN PRN Reason: PAIN/FEVER > 101 Allopurinol (Zyloprim) 200 mg PO QDAY [facility] Last Admin: 04/30/17 09:14 Dose: 200 mg Atorvastatin Calcium (Lipitor) 40 mg PO DAILY [facility] Last Admin: 04/30/17 09:14 Dose: 40 mg Calcium Acetate (Phoslo) 667 mg PO TIDCC [facility] Last Admin: 04/30/17 12:13 Dose: 667 mg Dextrose (Dextrose 50%) 0 ml IV UD PRN PRN Reason: Hypoglycemia Diagnostic Test (Pha) (Accu-Chek) 1 each FS ACHS [facility] Last Admin: 04/30/17 12:12 Dose: 1 each Docusate Sodium (Colace) 100 mg PO BID [facility] Last Admin: 04/30/17 09:15 Dose: 100 mg Doxazosin Mesylate (Cardura) 4 mg PO DAILY [facility] Last Admin: 04/30/17 09:15 Dose: 4 mg Famotidine (Pepcid) 20 mg IV HS [facility] Last Admin: 04/29/17 20:50 Dose: 20 mg Ferrous Sulfate (Ferrous Sulfate) 325 mg PO CCHS [facility] Last Admin: 04/30/17 12:13 Dose: 325 mg Glucose (Insta-Glucose) 15 gm PO PRN PRN PRN Reason: Hypoglycemia Guaifenesin/Codeine Phosphate (Robitussin Ac) 10 ml PO Q4HP PRN PRN Reason: Cough Heparin Sodium (Porcine) (Heparin Flush) 2 ml IV Q12 [facility] Last Admin: 04/30/17 09:24 Dose: 2 ml Hydralazine HCl (Apresoline) 10 mg IV Q4-6HP PRN PRN Reason: Hypertension Last Admin: 04/30/17 13:14 Dose: 10 mg Hydralazine HCl (Apresoline) 50 mg PO TID [facility] Last Admin: 04/30/17 09:16 Dose: 50 mg Magnesium Sulfate (Magnesium Sulfate) 2 gm in 50 mls @ 50 mls/hr IV UD PRN PRN Reason: MG = or < 1.7 Acetaminophen (Ofirmev) 1,000 mg in 100 mls @ 200 mls/hr IV Q6HP PRN PRN Reason: PAIN/FEVER > 101 Ertapenem 0.5 gm/ Sodium (Chloride) 50 mls @ 100 mls/hr IV Q24H [facility] Last Infusion: 04/30/17 13:10 Dose: Infused Insulin Glargine (Lantus) 40 unit SQ BID [facility] Last Admin: 04/30/17 10:26 Dose: 40 unit Insulin Human Lispro (Humalog) 0 unit SQ ACHS [facility] PRN Reason: Protocol Last Admin: 04/30/17 12:12 Dose: 2 unit Iron Carb/Multivit/[place]/Folic Acid (Multivitamin W/Minerals) 1 tab PO DAILY [facility] Last Admin: 04/30/17 09:15 Dose: 1 tab Levothyroxine Sodium (Synthroid) 300 mcg PO QAMAC [facility] Last Admin: 04/30/17 07:14 Dose: 300 mcg Lorazepam (Ativan) 1 mg PO DAILYP PRN PRN Reason: ANXIETY/SEDATION Last Admin: 04/29/17 21:40 Dose: 1 mg Morphine Sulfate (Morphine) 2 mg IV TIDP PRN PRN Reason: Pain Ondansetron HCl (Zofran) 4 mg IV Q4-6HP PRN PRN Reason: Nausea And Vomiting Oxycodone HCl (Roxicodone) 5 mg PO Q4HP PRN PRN Reason: Pain Last Admin: 04/29/17 20:50 Dose: 5 mg Potassium Chloride (Klor-Con) 40 meq PO DAILYP PRN PRN Reason: K+ < 3.5 Prednisone (Prednisone) 40 mg PO QASSM REHAB Last Admin: 04/30/17 07:59 Dose: 40 mg Senna/Docusate Sodium (Senna Plus Tablet) 1 tab PO HS [facility] Last Admin: 04/29/17 20:52 Dose: 1 tab Sodium Chloride (Saline Flush) 10 ml IV UD PRN PRN Reason: FLUSH Sodium Chloride (Saline Flush) 10 ml IV Q8 [facility] Last Admin: 04/30/17 05:20 Dose: 10 ml Theophylline (Uniphyll) 200 mg PO BID [facility] Last Admin: 04/30/17 10:26 Dose: 200 mg Medical - PN: A/P - Time Spent With Patient Total time spent is greater than 50% in coordination of care (as documented) at patient's floor/unit and/or counseling patient: - Narrative A/P Narrative: A/P Infected Diabetic Ulcer: s/p debridement, MSSA in the wound and blood cx, was on zosyn switched to ertapenum ( zosyn as cause of renal failure? ) MRI of the foot reviewed, no residual infection as per surgery. off wound vac. Management as per wound care. d/c ertapenum, start on keflex from tomorrow. Staph Bacteremia: MSSA On ertapenum now (to start on keflex from AM) d/c ertapenum . repeat cx neg, echo neg. Bradycardia/ Elevated trop: Discussed with Dr Hobbs, start on theophylline, prn isopreul if hr gets too low, will need pacemaker in the detention but cannot get one due to infection. Hr > 50 for now. patient is asymptomatic. HTN bp uncontrolled,better now after adding doxazosin, but still uncontrolle,d increase hydralazine to 100mg TID LA on CKD: due to AIN secondary to zosyn seems likely at this time. pt on HD nephrology following. Osteomyelitis of the foot: As per Dr Cameron there is no osteomyelitis MRI/ XRay findings are reactive, ok for oral abx and follow up with ID as outpatient. Sepsis resolved. DM type 2 on insulin, uncontrolled :glucose at goal, continue lantus 40, med scale sliding scale. afib: rate controlled, off anticoagulation now as plan to place tunneled cath. H/o DVT on Rivaroxaban held now for procedure. will have to consider alternative anti coagulation agent, eliquis of coumadin given renal failure, starting tomorrow. SCD for dvt prophylaxis, hold hep given bleeding from cath site,. resume anticoagulation AM. likely Coumadin and if pt declines eliquis 2.5mg bid. Anemia: due to infection, ckd, and post op loss? s/p transfusion, hb stable now , monitor. Will need Aranesp as per nephrology as outpatient. Hypothyroidism: Continue levothyroxine Full code Medical - PN: Qual - VTE Deep Vein Thrombosis/Pulmonary Embolism Present on Admission: No
[2017-04-30] MEDS: CEPHALEXIN 250 MG CAPSULE PO SCH (20:30)
[2017-04-30] MEDS: oxyCODONE HCL 5 MG TABLET PO PRN (20:30)
[2017-04-30] MEDS: LORazepam 1 MG TABLET PO PRN (20:30)
[2017-04-30] MEDS: SENNOSIDES/DOCUSATE SODIUM 1 TAB TABLET PO SCH (20:32)
[2017-04-30] MEDS: FAMOTIDINE/PF 20 MG/2 ML VIAL IV SCH (20:35)
[2017-04-30] MEDS ORDERED: hydrALAZINE 25 MG TABLET PO SCH (21:00)
[2017-05-01] MEDS: hydrALAZINE 20 MG/ML VIAL IV PRN (03:46)
[2017-05-01] MEDS: 0.9 % SODIUM CHLORIDE 10 ML SYRINGE IV SCH (04:19)
[2017-05-01 06:41] LABS: Basophils # (Auto) 0 K/mcL (0.0-0.3); Basophils % (Auto) 0.2 % (0.0-2.0); Eosinophils # (Auto) 0.1 K/mcL (0.0-0.7); Eosinophils % (Auto) 0.8 % (0.0-7.0); Granulocytes % (Auto) 84.4 % (38.0-78.0); Mean Corpuscular HGB Conc 32.8 g/dL (31.0-36.0); Mean Corpuscular Hemoglobin 28.8 pg (26.0-34.0); Monocytes # (Auto) 0.8 K/mcL (0.1-0.9); Monocytes % (Auto) 6.6 % (1.0-12.0); Platelet Count 375 K/mcL (140-440); Red Cell Distribution Width 16.1 % (11.5-14.5)
[2017-05-01 07:04] LABS: ALT/SGPT 11 U/l (0-40); Albumin/Globulin Ratio 0.9 (1.0-2.3); Alkaline Phosphatase 65 U/L (39-117); Bilirubin,Direct < 0.2 mg/dL (0.0-0.3); Blood Urea Nitrogen 60 mg/dl (6-20); Gamma Glutamyl Transpeptidase 61 U/L (8-61); Magnesium 2.7 mg/dL (1.6-2.5); Uric Acid 6.4 mg/dL (2.5-8.0)
[2017-05-01] MEDS: INSULIN LISPRO 1 UNIT/0.01 ML UNIT SQ SCH ×2 (07:27→12:46)
[2017-05-01] MEDS: LEVOTHYROXINE 150 MCG TABLET PO SCH (07:28)
[2017-05-01] MEDS: ALLOPURINOL 100 MG TABLET PO SCH (09:21)
[2017-05-01] MEDS: hydrALAZINE 25 MG TABLET PO SCH (09:21)
[2017-05-01] MEDS: predniSONE 20 MG TABLET PO SCH (09:21)
[2017-05-01] MEDS: ATORVASTATIN 20 MG TABLET PO SCH (09:21)
[2017-05-01] MEDS: MULTIVIT,THER IRON,CA,FA & MIN 1 TABLET PO SCH (09:21)
[2017-05-01] MEDS: CALCIUM ACETATE 667 MG CAPSULE PO SCH ×2 (09:22→12:46)
[2017-05-01] MEDS: DOCUSATE SODIUM 100 MG CAPSULE PO SCH (09:22)
[2017-05-01] MEDS: FERROUS SULFATE 325 MG TABLET PO SCH ×2 (09:22→12:46)
[2017-05-01] MEDS: DOXAZOSIN 4 MG TABLET PO SCH (09:22)
[2017-05-01] MEDS: INSULIN GLARGINE, HUMAN 1 UNIT/0.01 ML SQ SCH (09:23)
--- NOTE | 2017-05-01 10:00 | General Surgery Progress Note ---
Subjective Patient reports: no new complaints Narrative: Note initiated : 05/01/17 at 9:54 am Service Date, if different from initiated Date: [] Patient: Bart Pagan 57 y/o M admitted on 04/18/17 for Debridement of Wound Right Foot. Chief Complaint: [] Patient seen on rounds with Hospitalist Dr. Gray and Corine RN caring for this patient. Examined patient's right foot sound while patient was getting MIST treatment. REVIEWED Hemodialysis schedule and Lab results . Objective Temp Pulse Resp BP Pulse Ox 98.7 F 59 L 14 142/104 95 05/01/17 03:51 05/01/17 03:51 05/01/17 00:00 05/01/17 04:16 05/01/17 03:51 No fever. NO orthostatic symptoms. Puffiness of face back again. Clear speech and no SOB. ABLE to transfer from bed to BR with appropriate support and assistance. RIGHT foot wound at TMA site has improved significantly with HBOT and subsequent systemic antibiotics and local wound care MIST and dressing changes. . 70 % granulations and demarcating eschar is 20 %. Periwound skin and sub q texture is normal for patient. - Additional Data Intake & Output - Last 24 hours: Intake & Output 04/29/17 04/30/17 05/01/17 05/02/17 05:59 05:59 05:59 05:59 Intake Total 400 / 400 290 / 290 460 / 460 Output Total 5150 / 5150 100 / 100 Balance 400 / 400 -4860 / -4860 360 / 360 Weight 256 lb 8 oz 245 lb 8 oz 259 lb - Labs 05/01/17 04:00 05/01/17 04:00 Diabetes panel 05/01/17 Range/Units 04:00 Sodium 131 L (133-145) mmol/L Potassium 4.6 (3.3-5.1) mmol/L Chloride 91 L (96-108) mmol/L Carbon Dioxide 27 (22-30) mmol/L BUN 60 H (6-20) mg/dl Creatinine 7.7 H* (0.7-1.2) mg/dl Glucose 69 L (70-105) mg/dL Calcium 8.3 L (8.6-10.4) mg/dl AST 18 (0-37) U/l ALT 11 (0-40) U/l Alkaline Phosphatase 65 (39-117) U/L Total Protein 6.4 (5.9-8.4) gm/dL Albumin 3.0 L (3.2-5.2) gm/dL Triglycerides 72 (<150) mg/dl Calcium panel 05/01/17 Range/Units 04:00 Calcium 8.3 L (8.6-10.4) mg/dl Phosphorus 5.9 H (2.7-4.5) mg/dL Albumin 3.0 L (3.2-5.2) gm/dL Pituitary panel 05/01/17 Range/Units 04:00 Sodium 131 L (133-145) mmol/L Potassium 4.6 (3.3-5.1) mmol/L Chloride 91 L (96-108) mmol/L Carbon Dioxide 27 (22-30) mmol/L BUN 60 H (6-20) mg/dl Creatinine 7.7 H* (0.7-1.2) mg/dl Glucose 69 L (70-105) mg/dL Calcium 8.3 L (8.6-10.4) mg/dl Adrenal panel 05/01/17 Range/Units 04:00 Sodium 131 L (133-145) mmol/L Potassium 4.6 (3.3-5.1) mmol/L Chloride 91 L (96-108) mmol/L Carbon Dioxide 27 (22-30) mmol/L BUN 60 H (6-20) mg/dl Creatinine 7.7 H* (0.7-1.2) mg/dl Glucose 69 L (70-105) mg/dL Calcium 8.3 L (8.6-10.4) mg/dl Total Bilirubin 0.2 (0.0-1.0) mg/dL AST 18 (0-37) U/l ALT 11 (0-40) U/l Alkaline Phosphatase 65 (39-117) U/L Total Protein 6.4 (5.9-8.4) gm/dL Albumin 3.0 L (3.2-5.2) gm/dL Assessment and Plan (1) Sepsis affecting skin Problem details: NECROTIZING skin and soft tissue infection. SEPSIS Uncontrolled diabetes, Anemia, CRF PLAN: HBOT Now later OR debridement / lavage and deep tissue biopsies and cultures. Status: Acute Assessment and plan: Progressing well from wound care point of view. Medical management by Hospitalist and CRF management by Furnace Attendant Will complete 10 HBOT total treatments, Later continue with wound care and monitor. Current Visit: Yes (2) Foot infection Problem details: For LOCAL WOUND CARE. OK to proceed with treatment of chronic kidney disease and start HD after insertion of dialysis catheter. Current wound management to continue. WIll follow patient from Wound Care point of view. He understands and agrees. HBO on HOLD today and until further notice. Spoke with Dr. Garcia and Wound Care HBO team. Status: Acute Current Visit: Yes (3) Severe sepsis Status: Acute Assessment and plan: Assessment: POD # 1. Progressing well. Hypothyroidism / Hypoproteinemia Pre albumin 14 / Anemia Hct 21 ( Dilutional ) Hypothyroidism , NIDDM A1c > 9 Wound and Blood cultures S. aureus Jones sensitive Plan ; Continue current treatment. HBOT and wound care. For dressing change and wound VAC placement on Monday04/21/2017. OK to get OOB and sit out in chair. Incentive spirometry q 2 hrly when awake, NWB Right foot and leg. OK to go to BR with FWW walker NWB Current Visit: Yes - Time Spent With Patient Total time spent is greater than 50% in coordination of care (as documented) at patient's floor/unit and/or counseling patient: Assessment: Satisfactory progress from wound care point of view. Plan: HBOT is ON HOLD. OK to discharge home and f/u in wound clinic THIS week Monday05/05/2017 Daily MIST treatment and local wound care to continue as out patient. Total NWB on Right foot. Roll about scooter for off loading IF available . PHYSICAL THERAPY to see patient and advise about NWB ambulation and transfers,
[2017-05-01] MEDS: CEPHALEXIN 250 MG CAPSULE PO SCH (10:28)
[2017-05-01] MEDS: THEOPHYLLINE ANHYDROUS 400 MG TAB.XL.24H PO SCH (10:28)
[2017-05-01 10:57] LABS: Hepatitis B Surface Antigen NEGATIVE (NEGATIVE)
[2017-05-01 11:00] LABS: Hepatitis B Surface Antibody NEGATIVE (NEGATIVE)
--- NOTE | 2017-05-01 11:54 | Discharge Summary ---
Medical - DS: Prov Patient information: Note initiated : 05/01/17 at 11:50 am Service Date, if different from initiated Date: [] Patient: Bart Pagan 57 y/o M admitted on 04/18/17 for Debridement of Wound Right Foot. Chief Complaint: [] Date of admission: 04/18/17 13:50 Discharge date: 05/01/17 Primary care physician: Mariama Bedolla Admitting clinician: Johnny Schreiber Consults: 04/18/17 13:54 Consult to Physician [CONS] Routine Comment: Consulting Provider: Dickson Cameron Reason For Exam: Physician to Consult Discharging clinician: Izabela Gray Medical - DS: Meds - Discharge Medications Prescriptions: Cephalexin [Keflex] 500 mg PO Q12H #28 capsule Doxazosin [Cardura] 4 mg PO DAILY #30 tablet hydrALAZINE HCL [Hydralazine HCl] 100 mg PO TID #90 tablet predniSONE [Prednisone] 40 mg PO QAC #60 tablet Theophylline Anhydrous [Uniphyll] 200 mg PO BID #60 Warfarin [Coumadin] 5 mg PO DAILY #30 tablet Active and Home Medications: Home Medications glipizide 10 mg tablet 10 mg PO BID tab 02/11/15 [History Confirmed 04/18/17 Last Taken 09/18/15] rivaroxaban 15 mg tablet 15 mg PO DAILY 21 Days 03/27/15 [History Confirmed Last Taken 09/18/15] insulin detemir 100 unit/mL (3 mL) subcutaneous pen 80 unit SUB-Q BID ml [History Confirmed 04/18/17 Last Taken Unknown] amlodipine 10 mg tablet 10 mg PO QDAY #90 tab 05/27/16 [Rx Confirmed 04/18/17 Last Taken Unknown] calcium acetate 667 mg capsule 667 mg PO TID 90 Days 05/27/16 [Rx Confirmed Last Taken Unknown] levothyroxine 150 mcg capsule 300 mcg PO ACB 05/27/16 [History Confirmed Last Taken Unknown] losartan 100 mg tablet 100 mg PO QDAY #90 tab 05/27/16 [Rx Confirmed 04/18/17 Last Taken Unknown] torsemide 20 mg tablet 40 mg PO BID 90 Days 05/27/16 [Rx Confirmed 04/18/17 Last Taken Unknown] insulin aspart 100 unit/mL subcutaneous pen 15 unit SUB-Q QPMAC ml 01/02/17 [ History Confirmed 04/18/17 Last Taken Unknown] atorvastatin 40 mg tablet 40 mg PO QDAY 90 Days 02/23/17 [Rx Confirmed 04/18/17 Last Taken Unknown] ergocalciferol (vitamin D2) 50,000 unit capsule 50,000 unit PO QWEEK cap [History Confirmed 04/18/17 Last Taken Unknown] hydralazine 25 mg tablet 25 mg PO BID tab 03/24/17 [History Confirmed 04/18/17 Last Taken Unknown] prednisone 10 mg tablet 10 mg PO QDAY #30 tab 03/24/17 [Rx Confirmed 04/18/17 Last Taken Unknown] metolazone 2.5 mg tablet 2.5 mg PO QOD PRN #20 tab NS 04/10/17 [Rx Confirmed Last Taken Unknown] Allopurinol [Zyloprim] 200 mg PO QDAY 04/18/17 [History Confirmed 04/18/17 Last Taken Unknown] HYDROcodone/ACETAMINOPHEN [Hydrocodon-Acetaminophn 10-325] 1 - 2 tab PO Q6HP PRN 04/18/17 [History Confirmed 04/18/17 Last Taken Unknown] Medical - DS: Hosp Hospital course: Mr. Pagan is a 57 year old M who under went right foot metatarsal amputation on March 07. Patient has been recovering well and has been following up with wound care. On Monday before admission the patient saw on care physician and underwent treatment along with 2 stitches. Over the weekend patient has noted increasing swelling and pain discharge. By Monday patient started experiencing shaking chills and drenching sweats long with excessive exhaustion. Today at work patient was unable to bear weight due to increasing pain and swelling along with associated fever. He notices bandage soaked in bloody discharge. he is afebrile 102. e was subsequently directed by Dr. Cameron's office to ER. Initial workup in the ER showed elevated WBC count, and fever and clearly infected wound. Patient was admitted to the hospital for sepsis, secondary to DM foot ulcer, necrotizing infection of the right foot. Sepsis/ bacteremia: Treated with Vancomycin and Zosyn,IV fluids were given patient responded to treatment very well, he had MSSA bactermiea secondary to the wound. Echo done neg for endocarditis, repeat cultures were negatiev. The patient responded to treatment very well. Wound infection/ necrotizing, Diabetic ulcer: patient treated with debridement and antibiotics, and HBOT as per Dr Mccauley, the patient responded to treatment well, pt did receive 14 days of IV abx, will give another 14 days of oral ABX with keflex 500mg bid for same. 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 The patient wound improved and at the time of discharge had 70% granulation tissue. The patient will follow up with Dr Mccauley in 1 week as outpatient, advised to continue mist therapy and local wound care till seen by Dr Mccauley in the [facility]. Acute Kidney Injury: The patient has h/o CKD and was following with Dr Garcia, Th patient had worsening of his renal function, with possible inflammatory changes on ua and renal USG, the patient urine eosinophils was positive , and patients dose of prednisone increased from 10 to 40, the patient had decreased urine output ,needing initiation of dialysis. Initially a temp catheter was placed and then a tunneled cath, by Dr Shane. Patient had 3 HD session in the hospital and will have another HD immediately after discharge, he will follow up with nephrology as outpatient. DM: Glucose was elevated during the hospital stay, he uses 80 units levemir bid at home, but has only needed 40 units bid, I will cut back his dose of insulin to 40 units bid along with his pre meal insulin. The patient will stop taking the glipizide in light of his renal failure. Bradycardia/ Afib: Patient had significant bradycardia, during the hospital stay , with some troponin elevation. Case reviewed with patients air sealing technician Dr Tang, who advised initiation of theophylline 200mg bid, and follow up as outpatient, pt was not a candidate for pacemaker placement given his acute infection. He will eventually need a pacemaker. His amlodipine was held given that this is a CCB and in the past cardizem had caused bradycardia. HTN: The patients bp meds are being switched from losartan, torsemide, amlodipine to hydralazine 100mg tid and doxazosin 4mg qd. His medication will be titrated by nephrology/ pcp as outpatient. anemia: need blood transfusion after debridement, now due to renal failure, will follow up as outpatient with nephrology, will need epogen which will be initiated by nephrology in the dialysis unit. Chr Anticoaguliation for Afib: The patient was on rivaroxaban for afib, this medication cannot be used now in light of his renal failure, he can be switched to low dose eliquis or coumadin. Given we are not sure of his insurance situation, we will start him on coumadin 5mg once daily and he will have to follow up with his PCP for INR check in 3 days. She or the patients air sealing technician can transition him to eliquis if they feel that he is a candidate for same. The rest of the stay in the hospital was uneventful, he needed a picc line for antibiotics which will be discontinued at discharge. He wants to be discharged home and will be coming to the clinic for wound care. The patient needs to be NWB on the right foot, and is fully aware of same. Discharge diagnosis: necrotizing cellutiltis, Acute Kidney INjury, Sepsis - Time Spent with Patient Total time spent providing and/or coordinating discharge services: Greater than 30 minutes Medical - DS: Exam - Constitutional Vitals: Vital Signs Temp Pulse Pulse Resp BP BP Pulse Ox 05/01/17 11:35 97.7 F 20 163/52 95 05/01/17 04:16 142/104 05/01/17 03:51 98.7 F 59 L 165/110 95 05/01/17 00:12 53 L 05/01/17 00:00 97.6 F 59 L 14 168/78 96 04/30/17 19:53 68 04/30/17 19:40 97.4 F 61 14 159/67 97 04/30/17 16:00 98.4 F 20 167/67 97 04/30/17 12:00 97.7 F 16 197/69 96 Intake and Output 04/30/17 05/01/17 05/01/17 21:59 05:59 13:59 Intake Total 50 / 50 240 / 240 Output Total 50 / 50 50 / 50 Balance 0 / 0 190 / 190 Intake: Oral 50 / 50 240 / 240 Output: Void Amount 50 / 50 50 / 50 Other: # Voids 1 # Bowel Movements 1 Weight 259 lb 259 lb Patient Weight 05/02/17 05:59 Weight 259 lb Additional comments: Constitutional; Afebrile, cooperative, alert, not in distress. Eyes- No icterus, , No periorbital swelling Ears- Ext ear normal, hearing normal to conversation. Neck- Midline trachea, supple Respiratory system: Air Entry equal on both sides, No crackles or wheezing, no rhonchi. CVS- Rate rhythm regular, S1,S2 heard, no gallop, no rub. Abdomen- Soft nontender abdomen, no organomegaly, no tenderness, no guarding or rigidity, CARE MANAGER- AOOx3, moving all extremities, no gross focal deficit noted. Medical - DS: Data Procedures and tests throughout hospitalization: CXR IMPRESSION: Equivocal tiny bilateral pleural effusions Foot X ray IMPRESSION: Marked soft tissue swelling over the transmetatarsal amputation stump with irregularity in the first metatarsal base which could indicate osteomyelitis Foot MRI IMPRESSION: 1. Status post transmetatarsal amputation. Probable gas bubbles within soft tissues. Plain film examination may be of benefit. Gas bubbles may be postoperative or related to infection. 2. Bone marrow edema within the 1st through 5th metatarsal stumps. Findings are nonspecific. This may be reactive but osteomyelitis is possible. 3. Bone marrow edema within the cuboid and cuneiform bones as above. Labs on day of discharge: Labs from last 24 hours 05/01/17 05/01/17 05/01/17 08:27 04:00 04:00 WBC 12.0 H RBC 2.70 L Hgb 7.8 L Hct 23.8 L MCV 88.0 MCH 28.8 MCHC 32.8 RDW 16.1 H Plt Count 375 MPV 9.3 Gran % 84.4 H Lymph % (Auto) 8.0 L Wolfe % (Auto) 6.6 Eos % (Auto) 0.8 Baso % (Auto) 0.2 Gran # 10.1 H Lymph # (Auto) 1.0 L Wolfe # (Auto) 0.8 Eos # (Auto) 0.1 Baso # (Auto) 0 Sodium 131 L Potassium 4.6 Chloride 91 L Carbon Dioxide 27 Anion Gap 13.0 BUN 60 H Creatinine 7.7 H* GFR Calculation 7 Glucose 69 L Uric Acid 6.4 Calcium 8.3 L Phosphorus 5.9 H Magnesium 2.7 H Total Bilirubin 0.2 Direct Bilirubin < 0.2 GGT 61 AST 18 ALT 11 Alkaline Phosphatase 65 Lactate Dehydrogenase 282 H Total Protein 6.4 Albumin 3.0 L Globulin 3.4 Albumin/Globulin Ratio 0.9 L Triglycerides 72 Hep Bs Antigen Negative Hep Bs Antibody Negative Medical - DS: A/P - Patient/Caregiver Discharge Instructions Activity: increase activity as tolerated (Non weight bearing on the right foot. ), other Diet: Cardiac, Renal/Consistent Carbs Additional Instructions: Dialysis today in the dialysis clinic at [facility], be there at 2:30 for a 2:50 run. Your Dialysis days are Monday, Monday & Fridays. Be there at 2:30 for a 2:50 run. Daily wound care, with mist therapy, topical bacitracin and dressing changes. Follow up with PCP in 3 days for INR check Follow up with Dr Mccauley in 1 week. Follow up with Cardiology in 2-4 weeks. Go to ER if worsening condition, fever, c hills reinfection fo the wound or any other concerning symptom. There have been many changes in your medication regime. You will stop amlodipine, metolozone, losartran and torsemide, which you take as diuretic and for hypertension you have been started on hydralazine 100mg tid, doxazosin 4mg qd. You will only take 40 units of levemir Twice daily as you do not need as much insulin at this time, you can uptitrate this if your glucose levels are elevated. Talk to your regular doctor regarding insulin adjustment. Stop taking glipizide. You will stop the rivaroxaban, and start coumadin again, INR check in 3 days with your PCP. Take prednisone 40mg once daily, your news commentator will decide when to taper the medication. Prescriptions: Cephalexin [Keflex] 500 mg PO Q12H #28 capsule Doxazosin [Cardura] 4 mg PO DAILY #30 tablet hydrALAZINE HCL [Hydralazine HCl] 100 mg PO TID #90 tablet predniSONE [Prednisone] 40 mg PO [facility] #60 tablet Theophylline Anhydrous [Uniphyll] 200 mg PO BID #60 Warfarin [Coumadin] 5 mg PO DAILY #30 tablet - Follow up Plan Follow up with: Dickson Cameron MD [Physician] - 05/08/17 8:40 am Mariama Bedolla DO [Primary Care Provider] - 05/05/17 12:30 pm Romeo Hobbs MD [Physician] - Disposition: Home, Self-Care Prognosis: Fair Rehab Potential: Fair I certify that the patient requires SNF services: No Overall status at discharge: patient is progressing back to baseline Medical - DS: Qual - VTE Deep Vein Thrombosis/Pulmonary Embolism Present on Admission: No
--- NOTE | 2017-05-01 15:52 | Nephrology Progress Note ---
Subjective Patient information: Note initiated : 05/01/17 at 3:50 pm Service Date, if different from initiated Date: [] Patient: Bart Pagan 57 y/o M admitted on 04/18/17 for Debridement of Wound Right Foot. Chief Complaint: [] Principal diagnosis: sepsis Interval history: no overnight events does have LE edema and puffiness of face denies SOB, CP remains anuric no other significant issues will be discharged today on oral antibiotics Pertinent ROS: as documented above Objective - Vital Signs Vital signs: Vital Signs Temp Pulse Pulse Pulse Resp BP BP 05/01/17 14:26 64 05/01/17 11:42 71 163/52 05/01/17 11:35 97.7 F 20 05/01/17 04:16 142/104 05/01/17 04:15 142/104 05/01/17 03:51 98.7 F 59 L 165/110 05/01/17 03:36 161/110 05/01/17 03:35 63 168/112 05/01/17 00:17 57 L 168/78 05/01/17 00:12 53 L 05/01/17 00:00 97.6 F 59 L 14 168/78 04/30/17 19:53 68 04/30/17 19:40 97.4 F 61 14 159/67 04/30/17 19:37 159/67 04/30/17 16:05 60 167/67 04/30/17 16:00 98.4 F 20 BP Pulse Ox 05/01/17 14:26 05/01/17 11:42 97 05/01/17 11:35 163/52 95 05/01/17 04:16 05/01/17 04:15 05/01/17 03:51 95 05/01/17 03:36 05/01/17 03:35 97 05/01/17 00:17 96 05/01/17 00:12 05/01/17 00:00 96 04/30/17 19:53 04/30/17 19:40 97 04/30/17 19:37 04/30/17 16:05 95 04/30/17 16:00 167/67 97 Intake and Output 05/01/17 05/01/17 05/01/17 05:59 13:59 21:59 Intake Total 240 / 240 Output Total 50 / 50 Balance 190 / 190 Intake: Oral 240 / 240 Output: Void Amount 50 / 50 Other: # Voids 1 # Bowel Movements 1 Weight 259 lb Patient Weight 05/02/17 05:59 Weight 259 lb Intake & Output: Intake & Output 05/01/17 05/01/17 05/01/17 05:59 13:59 21:59 Intake Total 240 / 240 Output Total 50 / 50 Balance 190 / 190 Weight 259 lb Intake: Oral 240 / 240 Output: Void Amount 50 / 50 Other: # Voids 1 # Bowel Movements 1 - General Appearance General appearance: appears started age EENT: mucous membranes moist Neck: no JVD Respiratory: clear Cardiology: no rub, edema (bradycardic ), normal S1, normal S2 Gastrointestinal: no tenderness, no guarding Integumentary: warm and dry Neurologic: no asterixis, alert and oriented x3 Musculoskeletal: no erythema, no cyanosis Psychiatric: mood/affect appropriate - Lab 05/01/17 04:00 05/01/17 04:00 Most recent lab results Calcium 8.3 mg/dl (8.6-10.4) L 05/01/17 04:00 Phosphorus 5.9 mg/dL (2.7-4.5) H 05/01/17 04:00 Magnesium 2.7 mg/dL (1.6-2.5) H 05/01/17 04:00 Assessment and Plan (1) Acute on chronic renal failure renal function continues to get worse likely AIN, doubt post infectious GN but is a possibility, complements were normal, urine eos + no hyperkalemia, mild acidosis Anemia, Hb stable for now no s/o fluid excess HTN: uncontrolled, likely fluid related anemia: Hb declined some likely from bleeding, on iron supplements continue oral prednisone, will start tapering from next week HD today as outpt, requested HD unit to arrange for outpatient dialysis will follow along appreciate hospitalist help in managing this patient Status: Acute
== END 2017-05-01 14:10 | disposition home or self-care (01) | DRG 854 ==
LOC: ED 10:02 → ICU 13:50 → MEDSUR 04-23 14:32 → ICU 04-25 08:40
PROVIDERS: ADMIT Internal Medicine; ATTEND Internal Medicine

== ENCOUNTER 2018-08-23 08:52 | Inpatient (IN) ==
[2018-08-23] MEDS ORDERED: ONDANSETRON 4 MG/2 ML VIAL IV ONE ×2 (09:17→10:09)
--- NOTE | 2018-08-23 10:05 | Emergency Department Note ---
Nausea/Vomiting/Diarrhea HPI - General Chief complaint: Nausea/Vomiting/Diarrhea Stated complaint: nausea Time Seen by Provider: 08/23/18 09:41 Source: patient Mode of arrival: ambulatory Limitations: no limitations - History of Present Illness HPI Narrative: This 58-year-old child presents to ED with history of having a dialysis last night. His chief complaint is that he has dry heaves, nausea associated with dialysis runs at. He's had this now for the last 3 weeks, when I entered the exam room he is on the exam gurney hyperventilating, complaining of nausea. Initially was given some Zofran and that seemed to help the nausea little bit. He states he was here previously and he was given 4 different medications for his nausea. He denies any drug use but does have a history of diabetes, states his blood sugar was over 300 last night. He gave himself some insulin for that up. Denies headache, denies fevers or chills, denies back pain or flank pain. He's had no urinary complaints he still does urinate, has been on dialysis now for about a year. No chest pain no shortness of breath but he does have A. fib for which he takes Coumadin, he believes he may have skipped a few doses, heart rate is in the 120s to 130s initially on presentation. No chest pain no shortness of breath, denies abdominal pain, mainly dry heaves that have been bothering him now for about 3 weeks. MD complaint: nausea - Related Data Home Medications Medication Instructions Recorded Confirmed insulin detemir (U-100) 100 80 unit SUB-Q BID ml 01/15/16 08/23/18 unit/mL (3 mL) subcutaneous pen levothyroxine 150 mcg capsule 300 mcg PO ACB 05/27/16 08/23/18 insulin aspart U-100 100 unit/mL 15 unit SUB-Q QPMAC ml 01/02/17 08/23/18 subcutaneous pen ergocalciferol (vitamin D2) 50,000 50,000 unit PO QWEEK cap 03/24/17 08/23/18 unit capsule atorvastatin 40 mg tablet 40 mg PO QDAY 06/07/18 08/23/18 calcitriol 0.5 mcg capsule 0.5 mcg PO 3XW cap 06/07/18 08/23/18 sevelamer HCl 800 mg tablet 1,600 mg PO TID tab 06/07/18 08/23/18 warfarin 5 mg tablet See Label Instructions .ROUTE 06/07/18 08/23/18 .COMPLEX Previous Rx's Medication Instructions Recorded Accu-Chek 1 each FS ACHS strip 05/01/17 Acetaminophen [Tylenol] 650 mg PO Q4-6HP PRN tab 05/01/17 theophylline ER 400 mg 200 mg PO BID #14 tab 05/29/17 tablet,extended release 24 hr sucroferric oxyhydroxide 500 mg 500 mg PO TID #90 tab 02/07/18 chewable tablet allopurinol 100 mg tablet 100 mg PO QDAY #30 tab 05/22/18 losartan 50 mg tablet 50 mg PO QDAY #30 tab 07/02/18 amlodipine 10 mg tablet 10 mg PO QDAY #90 tab 08/20/18 gabapentin 300 mg capsule 300 mg PO QDAY 30 Days #30 cap 08/20/18 torsemide 20 mg tablet 40 mg PO QDAY #180 tab 08/20/18 Allergies Allergy/AdvReac Type Severity Reaction Status Date / Time Beta-Blockers AdvReac Mild Hypotension Verified 08/23/18 08:54 (Beta-Adrenergic Bloc Review of Systems All systems ED: reviewed and negative except as stated. Constitutional: Denies: fever, chills Eyes: Denies: eye pain ENT ED: Denies: ear pain Cardiovascular: Reports: palpitations. Denies: chest pain, dyspnea on exertion Respiratory: Denies: shortness of breath, cough Gastrointestinal: Reports: nausea, vomiting Musculoskeletal: Denies: back pain, joint swelling Integumentary: Denies: rash Neurological: Denies: headache, weakness Psychiatric: Reports: anxiety Past Medical History - Past Medical History Source: old records reviewed, nursing notes reviewed Medical history: Reports: atrial fibrillation, DM, hypertension, renal disease ( On dialysis), thyroid disease, other (Wound at right foot followed by Dr. Cameron) Surgical history ED: Reports: orthopedic, other (Cervical spine, rotator cuff, toe amputations), vascular surgery, other (Fistula for renal dialysis) Family history: Reports: non-contributory - Social History smoking status: Former smoker Alcohol use: Reports: None Drug use: Reports: none Physical Exam Limitations: no limitations General appearance: alert, in no apparent distress Head: atraumatic, normocephalic Eye: Present: normal appearance, PERRL, EOMI ENT: normal exam, normal oropharynx, mucous membranes moist Neck: Present: normal inspection, full ROM, trachea midline. Absent: tenderness , meningismus Chest: Present: normal inspection, symmetric chest wall rise Respiratory: Present: normal lung sounds bilaterally. Absent: respiratory distress Cardiovascular: Present: regular rate, normal rhythm. Absent: bradycardia Abdominal: Present: soft. Absent: distention, tenderness, guarding, rebound Rectal: Present: deferred : Present: normal inspection. Absent: testicular tenderness Extremities: Present: normal inspection, full ROM, other (history of right forefoot amputation, no obvious lower extremity wounds.). Absent: joint swelling, calf tenderness Back: Absent: CVA tenderness (R), CVA tenderness (L), paraspinal tenderness Neurological: Present: alert, oriented X3, CN II-XII intact, reflexes normal, other (actively hyperventilating.). Absent: motor sensory deficit Psychiatric: Present: normal affect, normal mood Skin: Present: warm, dry, intact. Absent: rash, cyanosis, pallor Course - Reevaluation(s) Reevaluation #1: We tried IV fluids, several different nausea medicines and he was still having dry heaves. Dr. Garcia came in for evaluation of. I discussed the case with Dr. Garcia and she wanted him admitted for diabetic gastroparesis, volume depletion clinically. She will follow in the hospital. I talked with Dr. Epperson regarding hospital admission final diagnosis is #1 diabetic gastroparesis #2 elevated blood sugar #3 persistent nausea and dry heaves, #4 atrial fibrillation with rapid ventricular response. #5 medication noncompliance for Coumadin. Vital Signs Temperature 97.3 F 08/23/18 08:54 Pulse Rate 120 H 08/23/18 08:54 Respiratory Rate 24 H 08/23/18 08:54 Blood Pressure 131/65 08/23/18 08:54 Pulse Oximetry (%) 100 08/23/18 08:54 Temperature 97.3 F 08/23/18 08:54 Pulse Rate 79 08/23/18 15:14 Respiratory Rate 18 08/23/18 15:14 Blood Pressure 144/83 08/23/18 15:01 Pulse Oximetry (%) 93 08/23/18 15:14 Nausea/Vomiting/Diarrhea - [facility] Narrative Medical decision making narrative: Plan is to admit to hospital for atrial fibrillation, RVR also persistent nausea and vomiting - Lab Data Result diagrams: 08/23/18 10:02 08/23/18 10:01 Lab Results 08/23/18 08/23/18 08/23/18 Range/Units 10:01 10:01 10:01 WBC (4.5-11.0) K/mcL RBC (4.50-5.90) M/mcL Hgb (13.5-16.5) g/dL Hct (41.0-55.0) % MCV (80.0-100.0) fL MCH (26.0-34.0) pg MCHC (31.0-36.0) g/dL RDW (11.5-14.5) % Plt Count (140-440) K/mcL MPV (7.4-10.4) fL Gran % (38.0-78.0) % Lymph % (Auto) (15.5-49.0) % [place] % (Auto) (1.0-12.0) % Eos % (Auto) (0.0-7.0) % Baso % (Auto) (0.0-2.0) % Gran # (1.8-8.0) K/mcL Lymph # (Auto) (1.5-4.8) K/mcL [place] # (Auto) (0.1-0.9) K/mcL Eos # (Auto) (0.0-0.7) K/mcL Baso # (Auto) (0.0-0.3) K/mcL PT 17.9 H (11.9-14.5) sec INR 1.5 H (0.9-1.1) Sodium 123 L (133-145) mmol/L Potassium 3.5 (3.3-5.1) mmol/L Chloride 81 L (96-108) mmol/L Carbon Dioxide 25 (22-30) mmol/L Anion Gap 17.0 H (8-16) BUN 10 (6-20) mg/dl Creatinine 2.6 H (0.7-1.2) mg/dl GFR Calculation 26 Glucose 346 H (70-105) mg/dL Calcium 8.2 L (8.6-10.4) mg/dl Total Bilirubin 1.3 H (0.0-1.0) mg/dL AST 47 H (0-37) U/l ALT 29 (0-40) U/l Alkaline Phosphatase 105 (39-117) U/L Troponin T 0.16 H* (0-0.03) ng/ml C-Reactive Protein 0.3 (0.0-0.8) mg/dl Total Protein 7.7 (5.9-8.4) gm/dL Albumin 4.5 (3.2-5.2) gm/dL Globulin 3.2 (2.2-3.7) gm/dL Albumin/Globulin Ratio 1.4 (1.0-2.3) Urine Color Urine Appearance Urine pH (5.0-9.0) Ur Specific [place] (1.000-1.035) Urine Protein (NEG) mg/dL Urine Glucose (UA) (NEG) mg/dL Urine Ketones (NEG) mg/dL Urine Occult Blood (<0.03) mg/dL Urine Nitrate (NEG) Urine Bilirubin (NEG) mg/dL Urine Urobilinogen (NEG) mg/dL Ur Leukocyte Esterase (NEG) /uL Urine RBC (0-1) /hpf Urine WBC (0-4) /hpf Ur Squamous Epith Cells (0-4) /hpf Urine Bacteria (0) /hpf Urine Mucus (0) /hpf Ur Culture Indicated? 08/23/18 08/23/18 08/23/18 Range/Units 10:02 11:30 13:00 WBC 12.7 H (4.5-11.0) K/mcL RBC 4.10 L (4.50-5.90) M/mcL Hgb 13.8 (13.5-16.5) g/dL Hct 41.7 (41.0-55.0) % MCV 101.9 H (80.0-100.0) fL MCH 33.7 (26.0-34.0) pg MCHC 33.1 (31.0-36.0) g/dL RDW 15.1 H (11.5-14.5) % Plt Count 267 (140-440) K/mcL MPV 8.8 (7.4-10.4) fL Gran % 86.5 H (38.0-78.0) % Lymph % (Auto) 8.3 L (15.5-49.0) % [place] % (Auto) 4.2 (1.0-12.0) % Eos % (Auto) 0.8 (0.0-7.0) % Baso % (Auto) 0.2 (0.0-2.0) % Gran # 11.0 H (1.8-8.0) K/mcL Lymph # (Auto) 1.1 L (1.5-4.8) K/mcL [place] # (Auto) 0.5 (0.1-0.9) K/mcL Eos # (Auto) 0.1 (0.0-0.7) K/mcL Baso # (Auto) 0 (0.0-0.3) K/mcL PT (11.9-14.5) sec INR (0.9-1.1) Sodium (133-145) mmol/L Potassium (3.3-5.1) mmol/L Chloride (96-108) mmol/L Carbon Dioxide (22-30) mmol/L Anion Gap (8-16) BUN (6-20) mg/dl Creatinine (0.7-1.2) mg/dl GFR Calculation Glucose (70-105) mg/dL Calcium (8.6-10.4) mg/dl Total Bilirubin (0.0-1.0) mg/dL AST (0-37) U/l ALT (0-40) U/l Alkaline Phosphatase (39-117) U/L Troponin T TNP (0-0.03) ng/ml C-Reactive Protein (0.0-0.8) mg/dl Total Protein (5.9-8.4) gm/dL Albumin (3.2-5.2) gm/dL Globulin (2.2-3.7) gm/dL Albumin/Globulin Ratio (1.0-2.3) Urine Color Straw Urine Appearance Clear Urine pH 8.0 (5.0-9.0) Ur Specific [place] 1.009 (1.000-1.035) Urine Protein >=500 A (NEG) mg/dL Urine Glucose (UA) >=500 A (NEG) mg/dL Urine Ketones Neg (NEG) mg/dL Urine Occult Blood 0.03 A (<0.03) mg/dL Urine Nitrate Neg (NEG) Urine Bilirubin Neg (NEG) mg/dL Urine Urobilinogen Neg (NEG) mg/dL Ur Leukocyte Esterase Neg (NEG) /uL Urine RBC 1 (0-1) /hpf Urine WBC 1 (0-4) /hpf Ur Squamous Epith Cells 0 (0-4) /hpf Urine Bacteria 0 (0) /hpf Urine Mucus Few (0) /hpf Ur Culture Indicated? No 08/23/18 Range/Units 13:20 WBC (4.5-11.0) K/mcL RBC (4.50-5.90) M/mcL Hgb (13.5-16.5) g/dL Hct (41.0-55.0) % MCV (80.0-100.0) fL MCH (26.0-34.0) pg MCHC (31.0-36.0) g/dL RDW (11.5-14.5) % Plt Count (140-440) K/mcL MPV (7.4-10.4) fL Gran % (38.0-78.0) % Lymph % (Auto) (15.5-49.0) % [place] % (Auto) (1.0-12.0) % Eos % (Auto) (0.0-7.0) % Baso % (Auto) (0.0-2.0) % Gran # (1.8-8.0) K/mcL Lymph # (Auto) (1.5-4.8) K/mcL [place] # (Auto) (0.1-0.9) K/mcL Eos # (Auto) (0.0-0.7) K/mcL Baso # (Auto) (0.0-0.3) K/mcL PT (11.9-14.5) sec INR (0.9-1.1) Sodium (133-145) mmol/L Potassium (3.3-5.1) mmol/L Chloride (96-108) mmol/L Carbon Dioxide (22-30) mmol/L Anion Gap (8-16) BUN (6-20) mg/dl Creatinine (0.7-1.2) mg/dl GFR Calculation Glucose (70-105) mg/dL Calcium (8.6-10.4) mg/dl Total Bilirubin (0.0-1.0) mg/dL AST (0-37) U/l ALT (0-40) U/l Alkaline Phosphatase (39-117) U/L Troponin T 0.14 H* (0-0.03) ng/ml C-Reactive Protein (0.0-0.8) mg/dl Total Protein (5.9-8.4) gm/dL Albumin (3.2-5.2) gm/dL Globulin (2.2-3.7) gm/dL Albumin/Globulin Ratio (1.0-2.3) Urine Color Urine Appearance Urine pH (5.0-9.0) Ur Specific [place] (1.000-1.035) Urine Protein (NEG) mg/dL Urine Glucose (UA) (NEG) mg/dL Urine Ketones (NEG) mg/dL Urine Occult Blood (<0.03) mg/dL Urine Nitrate (NEG) Urine Bilirubin (NEG) mg/dL Urine Urobilinogen (NEG) mg/dL Ur Leukocyte Esterase (NEG) /uL Urine RBC (0-1) /hpf Urine WBC (0-4) /hpf Ur Squamous Epith Cells (0-4) /hpf Urine Bacteria (0) /hpf Urine Mucus (0) /hpf Ur Culture Indicated? Disposition Pt seen by GRANULAR OPERATOR/PA only: No Clinical Impression: Atrial flutter, Chronic kidney disease, stage V requiring chronic dialysis Disposition: Xfer As Inpt ([facility]) Condition: Fair Referrals: Wendy Tamayo ARNP [Primary Care Provider] -
[2018-08-23] MEDS ORDERED: 0.9 % SODIUM CHLORIDE 500 ML IV ONE ×2 (10:08→12:55)
[2018-08-23] MEDS ORDERED: LORazepam 2 MG/ML VIAL IV ONE ×2 (10:08→15:01)
[2018-08-23] MEDS ORDERED: METOCLOPRAMIDE 10 MG/2 ML VIAL IV ONE (10:09)
[2018-08-23 10:17] LABS: Basophils # (Auto) 0 K/mcL (0.0-0.3); Basophils % (Auto) 0.2 % (0.0-2.0); Eosinophils # (Auto) 0.1 K/mcL (0.0-0.7); Eosinophils % (Auto) 0.8 % (0.0-7.0); Granulocytes % (Auto) 86.5 % (38.0-78.0); Lymphocytes # (Auto) 1.1 K/mcL (1.5-4.8); Lymphocytes % (Auto) 8.3 % (15.5-49.0); Mean Cell Volume 101.9 fL (80.0-100.0); Mean Corpuscular HGB Conc 33.1 g/dL (31.0-36.0); Monocytes # (Auto) 0.5 K/mcL (0.1-0.9); Monocytes % (Auto) 4.2 % (1.0-12.0); Platelet Count 267 K/mcL (140-440); Red Cell Distribution Width 15.1 % (11.5-14.5)
[2018-08-23 10:39] LABS: ALT/SGPT 29 U/l (0-40); Albumin 4.5 gm/dL (3.2-5.2); Albumin/Globulin Ratio 1.4 (1.0-2.3); Alkaline Phosphatase 105 U/L (39-117); Blood Urea Nitrogen 10 mg/dl (6-20); C-Reactive Protein 0.3 mg/dl (0.0-0.8)
[2018-08-23] MEDS ORDERED: DILTIAZEM 180 MG CAP.XL.24H PO ONE (10:47)
--- NOTE | 2018-08-23 11:08 | XRay Report ---
HISTORY: Atrial fibrillation with rapid ventricular rate, nausea FINDINGS: The heart size is within upper limits of normal. There is no congestive heart failure or pleural effusion. The lungs are clear. The mediastinum and abelardo are normal. There has been little change since 09/12/17. IMPRESSION: Normal exam, without congestive heart failure Interpreted and Authenticated by: Kd Hedrick 08/23/18
[2018-08-23 11:30] LABS: Appearance,Urine CLEAR; Bacteria,Urine 0 /hpf (0); Bilirubin,Urine NEG (NEG); Color,Urine STRAW; Glucose,Urine (UA) >=500 mg/dL (NEG); Leukocyte Esterase,Urine NEG /uL (NEG); Mucus,Urine FEW /hpf (0); Protein,Urine >=500 mg/dL (NEG); Specific Gravity,Urine 1.009 (1.000-1.035); Urine Blood 0.03 mg/dL (<0.03); Urine RBC 1 /hpf (0-1); Urine Squamous Epithelial Cell 0 /hpf (0-4); Urine WBC 1 /hpf (0-4); Urobilinogen,Urine NEG (NEG)
[2018-08-23] MEDS ORDERED: ASPIRIN 81 MG TAB.CHEW CHEWED ONE (11:54)
[2018-08-23] MEDS ORDERED: INSULIN REGULAR, HUMAN 1 UNIT/0.01 ML UNIT SQ ONE (12:22)
[2018-08-23] MEDS ORDERED: diphenhydrAMINE 50 MG/ML VIAL IV ONE (12:45)
[2018-08-23] MEDS ORDERED: PROMETHAZINE 25 MG/ML VIAL IV ONE (12:45)
[2018-08-23] MEDS ORDERED: PANTOPRAZOLE 40 MG VIAL IV ONE (12:45)
[2018-08-23] MEDS ORDERED: DILTIAZEM 25 MG/5 ML VIAL IV ONE (14:46)
[2018-08-23] MEDS ORDERED: ENOXAPARIN 100 MG/ML SYRINGE SQ ONE (15:00)
[2018-08-23] MEDS ORDERED: 0.45 % SODIUM CHLORIDE 1,000 ML IV SCH (15:30)
[2018-08-23] MEDS ORDERED: IPRATROPIUM/ALBUTEROL 3 ML AMPUL.NEB NEB PRN ×2 (16:19→17:57)
[2018-08-23] MEDS ORDERED: ONDANSETRON 4 MG/2 ML VIAL IV PRN (16:19)
[2018-08-23] MEDS ORDERED: ACETAMINOPHEN 325 MG TABLET PO PRN ×3 (16:19→17:57)
[2018-08-23] MEDS ORDERED: PROMETHAZINE 25 MG/ML VIAL IM PRN (16:19)
[2018-08-23] MEDS ORDERED: WARFARIN 5 MG TABLET PO SCH (16:30)
--- NOTE | 2018-08-23 16:35 | Internal Med History&Physical ---
Medical - H&P: [facility] Patient information: Note initiated : 08/23/18 at 4:31 pm Service Date, if different from initiated Date: [] Patient: Bart Pagan 58 y/o M admitted on for Nausea. Chief Complaint: [] History of present illness: Mr. Pagan is a 58 year old M Who presents to the ED for nausea vomiting. He had dialysis yesterday has been nauseous and retching since then. However this nausea vomiting been going on for 3 weeks. In the ED he was hyperventilating very comfortable. Had multiple medications in the ER finally has some improvement in at this time but is quite sedated. Was also found to be hyperglycemic. And was found to be in A. fib RVR mildly with rates 120s. He was given p.o. diltiazem has better rates at this time. He is not on any AV dee blocking agents. Per history from provider he has been bradycardic in the past which I assume is the reason why is not on AV dee blockers. This latest event is probably exacerbated by his nausea vomiting. Has had no fevers chills no diarrhea no headache chest pain or shortness of breath. He has missed a few doses of his warfarin and thus his INR is subtherapeutic. Also found to be hyponatremic. Chest x-ray read by radiology unremarkable, question of left lower lobe infiltrate, however he has no respiratory symptoms and his CRP is negative. Review of Systems: Pertinent positives as above. Denies headache/fever/chills/chest or abdominal pain/cough/dyspnea/diarrhea. Remaining 10 point review of systems reviewed negative Medical - H&P: PM Medical history: Medical History (Last Reviewed 05/22/18 @ 13:38 by Ayanna Dela Cruz [facility]) Gouty arthropathy with tophi (Acute) Encounter for long-term (current) use of high-risk medication (Acute) Gout (Acute) Hand joint stiff (Acute) Polyarthralgia (Chronic) Inflammatory arthropathy (Suspected) Cough (Chronic) Vision problems (Chronic) Hand pain (Chronic) Thoracic back pain (Chronic) Spinal stenosis of thoracic region (Chronic) Cervical radiculopathy (Chronic) Spinal stenosis in cervical region (Chronic) Knee joint pain (Chronic) Elbow joint pain (Chronic) Atrial fibrillation (Chronic) Essential hypertension (Chronic) Anemia (Chronic) Vitamin D deficiency (Chronic) Diabetic foot ulcer (Chronic) 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) Diabetes mellitus (Chronic) Hypothyroidism (Chronic) Musculoskeletal pain (Chronic) Chronic kidney disease, stage IV (severe) (Chronic) Elevated erythrocyte sedimentation rate (Chronic) Hyperparathyroidism due to renal insufficiency (Chronic) Proteinuria (Chronic) Secondary hyperparathyroidism of renal origin (Chronic) Chronic kidney disease, stage IV (severe) (Chronic) Hyperuricemia (Chronic) Ulcer of foot (Acute) Secondary hyperparathyroidism (Chronic 09/15/13) Acidosis, renal tubular (Acute 08/21/13) Lumbar sprain (Acute) Hyperthyroidism (Acute) Hypertensive renal disease (Chronic 08/21/13) Hypertension (Acute) Creatinine elevation (Acute) Edema (Chronic 09/15/13) Type 2 diabetes mellitus, uncontrolled (Acute 08/21/13) Type 2 diabetes mellitus (Chronic) Stage III chronic kidney disease (Chronic 09/15/13) Atrial flutter (Acute) Past Surgical History (Last Reviewed 05/22/18 @ 13:38 by Ayanna Dela Cruz CMA) History of discectomy (Acute) History of arthroscopy of left shoulder (Chronic 04/16/15) History of lumbar discectomy (Chronic ~1986) Family History (Last Reviewed 05/22/18 @ 13:38 by Ayanna Dela Cruz CMA) Unknown Family history not obtainable due to adoption Social History (Last Updated 05/22/18 @ 13:44 by Torsten Rosario MD) Quit smoking 2004, drinks alcohol socially. Lives by himself Social History (Last Updated 05/22/18 @ 13:44 by Torsten Rosario MD) No Social History Section defined Medical - H&P: Meds Home Medications Medication Instructions Recorded Confirmed Type insulin detemir (U-100) 100 80 unit SUB-Q BID ml 01/15/16 08/23/18 History unit/mL (3 mL) subcutaneous pen levothyroxine 150 mcg capsule 300 mcg PO ACB 05/27/16 08/23/18 History insulin aspart U-100 100 unit/mL 15 unit SUB-Q QPMAC ml 01/02/17 08/23/18 History subcutaneous pen ergocalciferol (vitamin D2) 50,000 50,000 unit PO QWEEK cap 03/24/17 08/23/18 History unit capsule Accu-Chek 1 each FS ACHS strip 05/01/17 08/23/18 Rx Acetaminophen [Tylenol] 650 mg PO Q4-6HP PRN tab 05/01/17 08/23/18 Rx theophylline ER 400 mg 200 mg PO BID #14 tab 05/29/17 08/23/18 Rx tablet,extended release 24 hr sucroferric oxyhydroxide 500 mg 500 mg PO TID #90 tab 02/07/18 08/23/18 Rx chewable tablet allopurinol 100 mg tablet 100 mg PO QDAY #30 tab 05/22/18 08/23/18 Rx atorvastatin 40 mg tablet 40 mg PO QDAY 06/07/18 08/23/18 History calcitriol 0.5 mcg capsule 0.5 mcg PO 3XW cap 06/07/18 08/23/18 History sevelamer HCl 800 mg tablet 1,600 mg PO TID tab 06/07/18 08/23/18 History warfarin 5 mg tablet See Label Instructions .ROUTE 06/07/18 08/23/18 History .COMPLEX losartan 50 mg tablet 50 mg PO QDAY #30 tab 07/02/18 08/23/18 Rx amlodipine 10 mg tablet 10 mg PO QDAY #90 tab 08/20/18 08/23/18 Rx gabapentin 300 mg capsule 300 mg PO QDAY 30 Days #30 cap 08/20/18 08/23/18 Rx torsemide 20 mg tablet 40 mg PO QDAY #180 tab 08/20/18 08/23/18 Rx Allergies Allergy/AdvReac Type Severity Reaction Status Date / Time Beta-Blockers AdvReac Mild Hypotension Verified 08/23/18 08:54 (Beta-Adrenergic Bloc Medical - H&P: Exam - Constitutional Vitals: Temp Pulse Resp BP Pulse Ox 97.3 F 69 13 120/93 95 08/23/18 08:54 08/23/18 16:19 08/23/18 16:19 08/23/18 16:16 08/23/18 16:19 Exam: General: Quite drowsy from medications, but otherwise no acute distress, obese Eyes/N/T: EOMI, PEERL, DMM Head/Neck: neck supple, normocephalic atraumatic CV: irreg, No murmurs, normal s1/s2 Pulm: Clear b/l, no wheezing/rhonchi/rales Abd: soft, nontender, +BS x4 Ext: no clubbing/cyanosis/edema Neuro: Alert, no focal deficits, moves all extremities, CN 2-12 grossly intact, symmetrical strength b/l upper/lower, sensations intact b/l upper/lower Skin: warm/dry Medical - H&P: Reslt - Labs CBC & Chem 7: 08/23/18 10:02 08/23/18 10:01 Labs: Short CBC 08/23/18 Range/Units 10:02 WBC 12.7 H (4.5-11.0) K/mcL Hgb 13.8 (13.5-16.5) g/dL Hct 41.7 (41.0-55.0) % Plt Count 267 (140-440) K/mcL BMP 08/23/18 10:01 Sodium 123 L Potassium 3.5 Chloride 81 L Carbon Dioxide 25 BUN 10 Creatinine 2.6 H Glucose 346 H Calcium 8.2 L Cardiac Enzymes 08/23/18 08/23/18 08/23/18 Range/Units 10:01 13:00 13:20 Troponin T 0.16 H* TNP 0.14 H* (0-0.03) ng/ml Liver Function 08/23/18 Range/Units 10:01 Total Bilirubin 1.3 H (0.0-1.0) mg/dL AST 47 H (0-37) U/l ALT 29 (0-40) U/l Alkaline Phosphatase 105 (39-117) U/L Albumin 4.5 (3.2-5.2) gm/dL Urine 08/23/18 Range/Units 11:30 Urine Color Straw Urine Appearance Clear Urine pH 8.0 (5.0-9.0) Ur Specific [place] 1.009 (1.000-1.035) Urine Protein >=500 A (NEG) mg/dL Urine Glucose (UA) >=500 A (NEG) mg/dL - Impressions EKG with A. fib Chest x-ray is read by radiology unremarkable. There is some haziness left lower lobe. Medical - H&P: A/P - Narrative A/P Narrative: A: *Afib RVR: improved s/p dilt x1 -Likely isolated incident from hypovolemia nausea vomiting. -Has not been on beta-blockers in the past because of bradycardia. Is on warfarin *Nausea/vomiting: This been ongoing for 3 weeks, exacerbated by dialysis -possible gastroparesis vs other *Hypovolemia: *Mild leukocytosis: Suspected to be reactive, afebrile, unremarkable CRP no respiratory symptoms *ESRD(MWF): Follows with Dr. Garcia *Diabetes with neuropathy and hyperglycemia: A1c *History of diastolic CHF: Stable *Anemia, chronic: *HTN: norvasc/losartan/torsemid *Hypothyroid: * P: -s/p IVF's, may need more, monitor -antiemetics -check man diff, TSH -consult Monica Meek -pending CT a/p, may need GES -f/u CBC -wound care -cont norvasc, hold torsemide/ARB for now - -ppx: wafarin per pharm
[2018-08-23] MEDS ORDERED: METOCLOPRAMIDE 10 MG/2 ML VIAL IV PRN (16:45)
--- NOTE | 2018-08-23 17:03 | Nephrology Consult Note ---
History of Present Illness - Reason for Consult Patient information: Note initiated : 08/23/18 at 4:58 pm Service Date, if different from initiated Date: [] Patient: Bart Pagan 58 y/o M admitted on for Nausea. Chief Complaint: [] Consult date: 08/23/18 end stage renal disease Requesting physician: Rudi Tom - Chief Complaint nausea, vomiting - History of Present Illness Patient is a 58 y/o pleasant white male with PMH of ESRD on HD for this who presented to the ED with refractory nausea, vomiting Patient started having nausea, vomiting which started last night after dialysis and did not improve at all. He has been having these symptoms for the last 3 weeks and recurrent ER visits with no relief of symptoms He denies SOB, CP but was noted to be hyperventilating and very restless on initial eval and hence had CXR/ABG and troponins checked He is also noted to h ave Afib with RVR NO EDEMA, below dry weight actually has not been eating well no fever, chills has not had sick contacts Patient is been hospitalised for management of Afib with RVR and evaluation of refractory nausea/vomiting Review of Systems All systems PM: reviewed and no additional remarkable complaints except as stated (as in HPI) Past History Past medical history: dm TYPE 2 htn ESRD on HD anemia of CKD Secondary hyperparathyroidism diabetic neuropathy gout Afib, h/o bradycardia h/o diabetic foot s/p amputation dyslipidemia morbid obesity hypothyroidism Past surgical history: s/p AVF s/p transmetatarsal amputation right foot Past family history: not pertinent, pt was adopted Past social history: lives alone, no current addictions, 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 Medications and Allergies Home Medications Medication Instructions Recorded Confirmed Type insulin detemir (U-100) 100 80 unit SUB-Q BID ml 01/15/16 08/23/18 History unit/mL (3 mL) subcutaneous pen levothyroxine 150 mcg capsule 300 mcg PO ACB 05/27/16 08/23/18 History insulin aspart U-100 100 unit/mL 15 unit SUB-Q QPMAC ml 01/02/17 08/23/18 History subcutaneous pen ergocalciferol (vitamin D2) 50,000 50,000 unit PO QWEEK cap 03/24/17 08/23/18 History unit capsule Accu-Chek 1 each FS ACHS strip 05/01/17 08/23/18 Rx Acetaminophen [Tylenol] 650 mg PO Q4-6HP PRN tab 05/01/17 08/23/18 Rx theophylline ER 400 mg 200 mg PO BID #14 tab 05/29/17 08/23/18 Rx tablet,extended release 24 hr sucroferric oxyhydroxide 500 mg 500 mg PO TID #90 tab 02/07/18 08/23/18 Rx chewable tablet allopurinol 100 mg tablet 100 mg PO QDAY #30 tab 05/22/18 08/23/18 Rx atorvastatin 40 mg tablet 40 mg PO QDAY 06/07/18 08/23/18 History calcitriol 0.5 mcg capsule 0.5 mcg PO 3XW cap 06/07/18 08/23/18 History sevelamer HCl 800 mg tablet 1,600 mg PO TID tab 06/07/18 08/23/18 History warfarin 5 mg tablet See Label Instructions .ROUTE 06/07/18 08/23/18 History .COMPLEX losartan 50 mg tablet 50 mg PO QDAY #30 tab 07/02/18 08/23/18 Rx amlodipine 10 mg tablet 10 mg PO QDAY #90 tab 08/20/18 08/23/18 Rx gabapentin 300 mg capsule 300 mg PO QDAY 30 Days #30 cap 08/20/18 08/23/18 Rx torsemide 20 mg tablet 40 mg PO QDAY #180 tab 08/20/18 08/23/18 Rx Allergies Allergy/AdvReac Type Severity Reaction Status Date / Time Beta-Blockers AdvReac Mild Hypotension Verified 08/23/18 08:54 (Beta-Adrenergic Bloc Exam - Vital Signs Vital signs: Temp Pulse Resp BP Pulse Ox 97.3 F 69 13 120/93 95 08/23/18 08:54 08/23/18 16:19 08/23/18 16:19 08/23/18 16:16 08/23/18 16:19 - General Appearance General appearance: appears started age, obese EENT: mucous membranes dry Neck: no JVD Respiratory: clear Cardiology: no rub, no edema, irregular rhythm Gastrointestinal: no tenderness, no guarding Integumentary: warm and dry Neurologic: alert and oriented x3 Musculoskeletal: no cyanosis, no clubbing Results - Lab Results 08/23/18 10:02 08/23/18 10:01 Most recent lab results Calcium 8.2 mg/dl (8.6-10.4) L 08/23/18 10:01 Assessment and Plan (1) ESRD (end stage renal disease) Status: Acute (2) Hyponatremia Status: Acute (3) Nausea & vomiting Status: Acute (4) Atrial flutter Status: Acute - Narrative A/P Narrative: 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 has diabetic gastroparesis but need to r/o other etiology management per hospitalist, appreciate Dr Guajardo's help in managing this patient will follow along
[2018-08-23] MEDS ORDERED: SEVELAMER 800 MG TABLET PO SCH (17:30)
[2018-08-23] MEDS ORDERED: Sucroferric Oxyhydroxide [Velphoro] 500 MG PO SCH (17:30)
[2018-08-23 17:58] LABS: Band Neutrophils % 4 % (0-10); Basophils % (Manual) 1 % (0-2); Eosinophils % (Manual) 2 % (0-7); Lymphocytes % 18 % (15-49); Macrocytosis 1+ (NONE SEEN); Monocytes % (Manual) 3 % (1-12); Platelet Estimate NORMAL (NORMAL); RBC Morphology ABNORMAL (NORMAL); Segmented Neutrophils % 71 % (38-78)
[2018-08-23] MEDS ORDERED: WARFARIN 10 MG TABLET PO ONE (18:00)
--- NOTE | 2018-08-23 18:19 | Cat Scan Report ---
CLINICAL INFORMATION: Nausea and vomiting COMPARISON: None. TECHNIQUE: The abdomen was imaged following oral contrast and no IV contrast, scanning from the diaphragm to the symphysis pubis. Sagittal and coronal reformats were created. The radiation exposure was limited using dose reduction technology. FINDINGS: There is mild parenchymal scarring in the left lung base. The liver and spleen are normal in size and homogeneous. There is a 1.0 x 1.9 cm ring shaped dense calcification in the liver along the posterior border of the falciform ligament. This may be a large granuloma. This does not appear to be vascular. There are densely calcified plaques along the wall normal caliber splenic artery. There is also moderate atherosclerotic disease in the aorta, celiac, superior mesenteric and iliac arteries. The internal iliac arteries are densely calcified. Is the patient diabetic? There is minimal amount sludge and few tiny stones along the posterior dependent portion of the gallbladder. Gallbladder wall is not thickened and the bile ducts are nondilated. No abnormality seen within the pancreas or adrenals. The right kidney is normal in size. There is moderate perinephric stranding. No right-sided kidney stone or hydronephrosis. The left kidney is somewhat atrophic. There are nonobstructing 1 mm calculi in both upper and lower poles the left kidney. Mild perinephric stranding is present. There is no hydronephrosis or evidence of a mass. Both ureters are decompressed. The oral contrast is passed through stomach and normal small intestine to the proximal ileum without obstruction. The appendix is noninflamed. There is a normal amount stool in the colon. Several noninflamed diverticula are present in the sigmoid colon. There is no evidence of acute diverticulitis. The urinary bladder is unopacified but appears normal. There are multiple calcifications within a mildly enlarged prostate. Seminal vesicles are normal symmetric. Per patient has a fat-containing right inguinal hernia. There are some stranding of subcutaneous fat and a bubble of air in the anterior abdominal wall. This may be related to a recent injection such as insulin. No ascites mass or adenopathy are seen within the abdomen or pelvis. Severe disc space narrowing is present at L5-S1 there is moderate narrowing at L1-2 and L3-4. IMPRESSION: Atrophy of the left kidney with tiny nonobstructing left-sided kidney stones Perinephric stranding around both kidneys, right greater than left. This may be from a prior episode of obstruction or chronic inflammatory change. Few tiny gallstones Diverticulosis Advanced atherosclerotic disease. The pattern of plaque distribution is associated with diabetes Interpreted and Authenticated by: Kd Hedrick 08/23/18
[2018-08-23 18:21] LABS: Vitamin B12 450.3 pg/ml (232-1245)
[2018-08-23] MEDS: ONDANSETRON 4 MG/2 ML VIAL IV PRN (18:37)
--- NOTE | 2018-08-23 19:22 | Internal Medicine Consult Note ---
Medical - CN: HPI - Data of Consult Patient: new to practice Consult date: 08/23/18 Requesting Physician: Tez Guajardo Primary Care Provider: ONEIL Goodson - Consult Narrative Reason for consult: nausea and vomiting History of present illness: Mr. Pagan is a 58 year old M migraineur with diabetic nephropathy on hemodialysis who is admitted for chronic intermittent nausea and vomiting with hyponatremia, hypovolemia, hyperglycemia and atrial fibrillation with RVR. He is fairly somnolent and it has taken quite a bit of time to obtain a detailed history. Four weeks ago, he became acutely ill with nausea and vomiting and presented to ER where he was given antiemetics and discharged. He felt better, but since that time has had intermittent episodes nausea occasionally accompanied with vomiting, always occurring after dialysis. Episodes last several hours at a time. He has vomited 6-7 times in the last 4 weeks and typically has a bilious emesis; he denies hematemesis and denies seeing any food from day prior in his emesis. He has suffered a minimal amount of weight loss. He denies any NSAID, marijuana use or herbal supplements. Zofran relieves symptoms a little. ER administered multiple doses of antiemetics prior to admission. He has missed "a couple of doses" of warfarin and levothyroxine due to his nausea and vomiting. He has a long history of migraine with visual aura but these abated 3-4 years ago. He never tried a prophylactic medication. He denies any headache accompanying his nausea and vomiting symptoms. Notably, he has new onset constipation with a BM every 3 days. He denies hematochezia. He tells me he had a colonoscopy 2 years ago that was "clear". I will attempt to locate this report. CT of the abdomen and pelvis showed no cause of symptoms. CC: Tez Garcia - Constitutional Constitutional: Present: as per HPI, weight loss. Absent: anorexia, fever(s) - Gastrointestinal Gastrointestinal: Present: constipation, nausea, vomiting. Absent: cramping, diarrhea, loose stools - Neurological Neurological: Absent: abnormal gait, abnormal speech, burning sensations, focal weakness, headache(s), numbness, paresthesias Medical - CN: PMH Medical history: diabetic nephropathy with hemodialysis, diabetic neuropathy, atrial fibrillation , hypertension, gout, inflammatory arthropathy, hypothyroidism. 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 Drug use: none Alcohol use: rarely Medical - CN: Meds Home Medications Medication Instructions Recorded Confirmed Type insulin detemir (U-100) 100 80 unit SUB-Q BID ml 01/15/16 08/23/18 History unit/mL (3 mL) subcutaneous pen levothyroxine 150 mcg capsule 300 mcg PO ACB 05/27/16 08/23/18 History insulin aspart U-100 100 unit/mL 15 unit SUB-Q QPMAC ml 01/02/17 08/23/18 History subcutaneous pen ergocalciferol (vitamin D2) 50,000 50,000 unit PO ORTIZ cap 03/24/17 08/23/18 History unit capsule Accu-Chek 1 each FS ACHS strip 05/01/17 08/23/18 Rx Acetaminophen [Tylenol] 650 mg PO Q4-6HP PRN tab 05/01/17 08/23/18 Rx theophylline ER 400 mg 200 mg PO BID #14 tab 05/29/17 08/23/18 Rx tablet,extended release 24 hr sucroferric oxyhydroxide 500 mg 500 mg PO TID #90 tab 02/07/18 08/23/18 Rx chewable tablet allopurinol 100 mg tablet 100 mg PO QDAY #30 tab 05/22/18 08/23/18 Rx atorvastatin 40 mg tablet 40 mg PO QDAY 06/07/18 08/23/18 History calcitriol 0.5 mcg capsule 0.5 mcg PO MOWEFR cap 06/07/18 08/23/18 History sevelamer HCl 800 mg tablet 1,600 mg PO TID tab 06/07/18 08/23/18 History warfarin 5 mg tablet 10 mg PO SUTUTHSA 06/07/18 08/23/18 History losartan 50 mg tablet 50 mg PO QDAY #30 tab 07/02/18 08/23/18 Rx amlodipine 10 mg tablet 10 mg PO QDAY #90 tab 08/20/18 08/23/18 Rx gabapentin 300 mg capsule 300 mg PO QDAY 30 Days #30 cap 08/20/18 08/23/18 Rx torsemide 20 mg tablet 40 mg PO QDAY #180 tab 08/20/18 08/23/18 Rx Warfarin [Coumadin] 15 mg PO MOWEFR 08/23/18 08/23/18 History Allergies Allergy/AdvReac Type Severity Reaction Status Date / Time Beta-Blockers AdvReac Mild Hypotension Verified 08/23/18 08:54 (Beta-Adrenergic Bloc Medical - CN: Exam - Constitutional Vitals: Temp Pulse Resp BP Pulse Ox 97.3 F 77 14 127/79 96 08/23/18 08:54 08/23/18 17:25 08/23/18 17:25 08/23/18 17:25 08/23/18 17:25 General appearance: average body habitus, cooperative, no acute distress - Head Head exam: Present: atraumatic, normal inspection - ENT ENT exam: Present: normal exam - Neck Neck exam: Present: normal inspection. Absent: lymphadenopathy, thyromegaly - Respiratory Respiratory exam: Present: normal respiratory exam, CTAB - Cardiovascular Cardiovascular exam: Present: normal rate and rhythm. Absent: systolic murmur - GI/Abdominal GI/Abdominal exam: Present: normal bowel sounds, soft. Absent: distended, organomegaly, tenderness Additional comments: No succussion splash, but difficult to get patient to roll as he is a bit sedated - Psychiatric Psychiatric exam: Present: normal affect, normal mood - Skin Skin exam: Present: dry, warm Medical - CN: Result - Labs CBC & Chem 7: 08/23/18 10:02 08/23/18 10:01 Labs: Short CBC 08/23/18 Range/Units 10:02 WBC 12.7 H (4.5-11.0) K/mcL Hgb 13.8 (13.5-16.5) g/dL Hct 41.7 (41.0-55.0) % Plt Count 267 (140-440) K/mcL BMP 08/23/18 10:01 Sodium 123 L Potassium 3.5 Chloride 81 L Carbon Dioxide 25 BUN 10 Creatinine 2.6 H Glucose 346 H Calcium 8.2 L Cardiac Enzymes 08/23/18 08/23/18 08/23/18 Range/Units 10:01 13:00 13:20 Troponin T 0.16 H* TNP 0.14 H* (0-0.03) ng/ml Liver Function 08/23/18 Range/Units 10:01 Total Bilirubin 1.3 H (0.0-1.0) mg/dL AST 47 H (0-37) U/l ALT 29 (0-40) U/l Alkaline Phosphatase 105 (39-117) U/L Albumin 4.5 (3.2-5.2) gm/dL Urine 08/23/18 Range/Units 11:30 Urine Color Straw Urine Appearance Clear Urine pH 8.0 (5.0-9.0) Ur Specific Jackson 1.009 (1.000-1.035) Urine Protein >=500 A (NEG) mg/dL Urine Glucose (UA) >=500 A (NEG) mg/dL Medical - CN: A/P (1) Nausea & vomiting Status: Acute Assessment and plan: Suspect multifactorial related to dialysis, hyponatremia, volume depletion and poorly controlled hypothyroidism. Hopefully, some of his nausea will improve with rehydration and correction of hyponatremia. TSH today is 40; as you know, poorly controlled hypothyroidism can lead to ileus, small intestinal bacterial overgrowth, constipation, etc. I suspect he will have some improvement with thyroid supplementation. There is likely a component of diabetic gastroparesis. Gastric emptying scan would be helpful to clarify. In the meantime, it would be reasonable to use Reglan 10mg PO AC. There may be a component of functional nausea as well, related to his history of migraine. Typically a tricyclic, like nortriptyline, can be helpful. This can also be helpful for increasing gastric accommodation in patients with gastroparesis. However, nortriptyline would have to be used cautiously in light of his history of atrial fibrillation with RVR. There is some evidence that anticonvulsants such as topiramate or Keppra can also be helpful for functional nausea in patients with a history of migraine. Typically response is seen 4-6 weeks after initiation of therapy. In the meantime, it would be reasonable to use Zofran 8mg every 6 hours to keep nausea under control. EGD should be undertaken as an outpatient to check for gastric outlet obstruction, peptic ulcer disease, H. pylori, etc. Rarely, new onset nausea and vomiting can indicate intracranial pathology. His lack of neurological symptoms is reassuring, but should he fail to respond to the treatments above, MRI brain would be indicated. Will see patient again tomorrow to reassess and make further recommendations at that time.
[2018-08-23] MEDS ORDERED: INSULIN LISPRO 1 UNIT/0.01 ML UNIT SQ SCH ×2 (20:00)
[2018-08-23 20:09] LABS: Hemoglobin A1C 9.1 % HGB (4.0-6.0)
[2018-08-23] MEDS ORDERED: HEPARIN 5,000 UNIT/ML VIAL SQ SCH (21:00)
[2018-08-23] MEDS ORDERED: FAMOTIDINE 20 MG TABLET PO SCH ×2 (21:00)
[2018-08-23] MEDS ORDERED: INSULIN GLARGINE, HUMAN 1 UNIT/0.01 ML SQ SCH (21:00)
[2018-08-23] MEDS ORDERED: DOCUSATE SODIUM 100 MG CAPSULE PO SCH (21:00)
[2018-08-23] MEDS: METOCLOPRAMIDE 10 MG/2 ML VIAL IV PRN (21:07)
[2018-08-23] MEDS: INSULIN GLARGINE, HUMAN 1 UNIT/0.01 ML SQ SCH (21:08)
[2018-08-23] MEDS: HEPARIN 5,000 UNIT/ML VIAL SQ SCH (21:08)
[2018-08-23] MEDS: DOCUSATE SODIUM 100 MG CAPSULE PO SCH (21:17)
[2018-08-23] MEDS: 0.9 % SODIUM CHLORIDE 10 ML SYRINGE IV SCH (21:18)
[2018-08-23] MEDS ORDERED: 0.9 % SODIUM CHLORIDE 10 ML SYRINGE IV SCH (22:00)
[2018-08-24] MEDS: ONDANSETRON 4 MG/2 ML VIAL IV PRN ×3 (00:27→08:41)
[2018-08-24] MEDS: INSULIN LISPRO 1 UNIT/0.01 ML UNIT SQ SCH ×5 (00:33→23:21)
[2018-08-24] MEDS: diphenhydrAMINE 50 MG/ML VIAL IV PRN ×3 (00:47→08:41)
[2018-08-24] MEDS: PROMETHAZINE 25 MG/ML VIAL IM PRN ×2 (01:27→07:05)
[2018-08-24] MEDS: METOCLOPRAMIDE 10 MG/2 ML VIAL IV PRN (03:15)
[2018-08-24 05:45] LABS: Mean Cell Volume 101.2 fL (80.0-100.0); Platelet Count 272 K/mcL (140-440); RBC 3.55 M/mcL (4.50-5.90); Red Cell Distribution Width 14.8 % (11.5-14.5)
[2018-08-24 05:55] LABS: ALT/SGPT 17 U/l (0-40); Albumin 3.7 gm/dL (3.2-5.2); Albumin/Globulin Ratio 1.4 (1.0-2.3); Alkaline Phosphatase 79 U/L (39-117); Bilirubin,Direct < 0.2 mg/dL (0.0-0.3); Blood Urea Nitrogen 13 mg/dl (6-20); Gamma Glutamyl Transpeptidase 19 U/L (8-61)
[2018-08-24] MEDS: 0.9 % SODIUM CHLORIDE 10 ML SYRINGE IV SCH ×3 (06:05→23:20)
[2018-08-24 06:45] LABS: Eosinophils % (Manual) 1 % (0-7); Lymphocytes % 24 % (15-49); Macrocytosis 1+ (NONE SEEN); Monocytes % (Manual) 1 % (1-12); Platelet Estimate NORMAL (NORMAL); RBC Morphology ABNORM (NORMAL); Segmented Neutrophils % 74 % (38-78)
--- NOTE | 2018-08-24 06:58 | Internal Med Progress Note ---
Medical - PN: Subj Patient information: Note initiated : 08/24/18 at 6:53 am Service Date, if different from initiated Date: [] Patient: Bart Pagan 58 y/o M admitted on 08/23/18 for Nausea. Chief Complaint: [] Interval history: Mr. Pagan is a 58 year old M Who presents to the ED for nausea vomiting. He had dialysis yesterday has been nauseous and retching since then. However this nausea vomiting been going on for 3 weeks. In the ED he was hyperventilating very comfortable. Had multiple medications in the ER finally has some improvement in at this time but is quite sedated. Was also found to be hyperglycemic. And was found to be in A. fib RVR mildly with rates 120s. He was given p.o. diltiazem has better rates at this time. He is not on any AV dee blocking agents. Per history from provider he has been bradycardic in the past which I assume is the reason why is not on AV dee blockers. This latest event is probably exacerbated by his nausea vomiting. Has had no fevers chills no diarrhea no headache chest pain or shortness of breath. He has missed a few doses of his warfarin and thus his INR is subtherapeutic. Also found to be hyponatremic. Chest x-ray read by radiology unremarkable, question of left lower lobe infiltrate, however he has no respiratory symptoms and his CRP is negative. 1/4 Has some nausea this morning not as bad as yesterday but receiving medications. Some vomiting. No chest pain shortness of breath. Coughing Review of Systems: denies headache/fever/chills/chest or abdominal pain/cough/dyspnea/diarrhea. Otherwise see above. - Constitutional Vitals: Vital Signs Temp Pulse Resp BP Pulse Ox 98.2 F 76 15 130/75 99 08/24/18 04:01 08/24/18 03:47 08/24/18 06:01 08/24/18 06:01 08/24/18 03:47 Period Temp Pulse Resp BP Sys/Mancini Pulse Ox Last 24 Hr 97.3 F-99.5 F 69-124 9-29 97-164/50-128 89-100 Intake and Output 08/23/18 08/24/18 08/24/18 21:59 05:59 13:59 Intake Total 500 / 1005 5 / 1005 Output Total 175 / 775 400 / 775 Balance 325 / 230 -395 / 230 Weight 106.141 kg Intake & Output: Intake & Output 08/23/18 08/24/18 08/24/18 21:59 05:59 13:59 Intake Total 500 / 1005 5 / 1005 Output Total 175 / 775 400 / 775 Balance 325 / 230 -395 / 230 Weight 106.141 kg Intake: IV 500 / 1000 Sodium Chloride 0.9% 500 ml @ 500 / 500 125 mls/hr IV BOLUS ONE Rx#: [id number] Oral Output: Void Amount 175 / 775 400 / 775 Other: Urine Appearance Clear Clear Urine Color Dark Yellow Dark Yellow # Emeses 0 Exam: General: alerat and awake, no acute distress, obese Eyes/N/T: EOMI, Head/Neck: neck supple, CV: irreg, No murmurs, Pulm: Clear b/l, no wheezing/rhonchi/rales Abd: soft, nontender, +BS x4 Ext: no clubbing/cyanosis/edema Neuro: Alert, no focal deficits, moves all extremities, Skin: warm/dry Medical - PN: Obj Da - Labs CBC & Chem 7: 08/23/18 10:02 08/23/18 10:01 Labs: Abnormal Lab Results 08/24/18 08/24/18 08/24/18 03:35 03:35 03:35 WBC RBC 3.55 L Hgb 12.2 L Hct 35.9 L MCV 101.2 H MCH 34.4 H RDW 14.8 H Gran % Lymph % (Auto) Gran # Lymph # (Auto) RBC Morphology Abnorm A Macrocytosis 1+ A PT 21.1 H INR 1.8 H Sodium 130 L Potassium 3.0 L Chloride 89 L Anion Gap Creatinine 3.3 H Glucose 64 L Hemoglobin A1c Calcium 7.4 L Total Bilirubin AST Lactate Dehydrogenase 312 H Troponin T TSH Urine Protein Urine Glucose (UA) Urine Occult Blood 08/23/18 08/23/18 08/23/18 17:57 17:08 17:07 WBC RBC Hgb Hct MCV MCH RDW Gran % Lymph % (Auto) Gran # Lymph # (Auto) RBC Morphology Macrocytosis 1+ A PT INR Sodium Potassium Chloride Anion Gap Creatinine Glucose Hemoglobin A1c 9.1 H Calcium Total Bilirubin AST Lactate Dehydrogenase Troponin T TSH 40.87 H Urine Protein Urine Glucose (UA) Urine Occult Blood 08/23/18 08/23/18 08/23/18 13:20 11:30 10:02 WBC 12.7 H RBC 4.10 L Hgb Hct MCV 101.9 H MCH RDW 15.1 H Gran % 86.5 H Lymph % (Auto) 8.3 L Gran # 11.0 H Lymph # (Auto) 1.1 L RBC Morphology Macrocytosis PT INR Sodium Potassium Chloride Anion Gap Creatinine Glucose Hemoglobin A1c Calcium Total Bilirubin AST Lactate Dehydrogenase Troponin T 0.14 H* TSH Urine Protein >=500 A Urine Glucose (UA) >=500 A Urine Occult Blood 0.03 A 08/23/18 08/23/18 08/23/18 10:01 10:01 10:01 WBC RBC Hgb Hct MCV MCH RDW Gran % Lymph % (Auto) Gran # Lymph # (Auto) RBC Morphology Macrocytosis PT 17.9 H INR 1.5 H Sodium 123 L Potassium Chloride 81 L Anion Gap 17.0 H Creatinine 2.6 H Glucose 346 H Hemoglobin A1c Calcium 8.2 L Total Bilirubin 1.3 H AST 47 H Lactate Dehydrogenase Troponin T 0.16 H* TSH Urine Protein Urine Glucose (UA) Urine Occult Blood Meds: Medications Acetaminophen (Tylenol) 650 mg PO Q6HP PRN PRN Reason: PAIN/FEVER > 101 Albuterol/Ipratropium (Duoneb) 3 ml NEB Q4HRT PRN PRN Reason: Bronchospasm Allopurinol (Zyloprim) 100 mg PO QDAY [facility] Amlodipine Besylate (Norvasc) 10 mg PO QDAY [facility] Atorvastatin Calcium (Lipitor) 40 mg PO DAILY [facility] Calcitriol (Rocaltrol) 0.5 mcg PO MoWeFr@0900 [facility] Cyanocobalamin (Vitamin B-12) 1,000 mcg PO DAILY [facility] Diagnostic Test (Pha) (Accu-Chek) 1 each FS Q6 [facility] Last Admin: 08/24/18 06:04 Dose: 1 each Documented by: Diphenhydramine HCl (Benadryl) 12.5 mg IV Q4HP PRN PRN Reason: Nausea Last Admin: 08/24/18 04:50 Dose: 12.5 mg Documented by: Docusate Sodium (Colace) 100 mg PO BID [facility] Last Admin: 08/23/18 21:17 Dose: Not Given Documented by: Ergocalciferol (Drisdol) 50,000 unit PO Zapata@0900 [facility] Famotidine (Pepcid) 20 mg PO HS [facility] Last Admin: 08/23/18 21:17 Dose: Not Given Documented by: Gabapentin (Neurontin) 300 mg PO QDAY [facility] Heparin Sodium (Porcine) (Heparin) 5,000 unit SQ Q12 [facility] Last Admin: 08/23/18 21:08 Dose: 5,000 unit Documented by: Insulin Glargine (Lantus) 80 unit SQ BID [facility] Last Admin: 08/23/18 21:08 Dose: 80 units Documented by: Insulin Human Lispro (Humalog) 0 unit SQ Q6 [facility]; Protocol Last Admin: 08/24/18 06:05 Dose: Not Given Documented by: Levothyroxine Sodium (Synthroid) 300 mcg PO QAMAC [facility] Metoclopramide HCl (Reglan) 5 mg IV Q6HP PRN PRN Reason: Nausea And Vomiting Last Admin: 08/24/18 03:15 Dose: 5 mg Documented by: Ondansetron HCl (Zofran) 4 mg IV Q4HP PRN PRN Reason: Nausea And Vomiting Last Admin: 08/24/18 04:30 Dose: 4 mg Documented by: Sucroferric Oxyhydroxide [ Velphoro] 500 Mg 1 dose PO TIDCC [facility] Promethazine HCl (Phenergan) 12.5 mg IM Q6HP PRN PRN Reason: Nausea And Vomiting Last Admin: 08/24/18 01:27 Dose: 12.5 mg Documented by: Sevelamer Carbonate (Renvela) 1,600 mg [facility] Sodium Chloride (Saline Flush) 10 ml IV Q8 [facility] Last Admin: 08/24/18 06:05 Dose: 10 ml Documented by: Warfarin Sodium (Coumadin Per Pharmacy) 1 order PO UD [facility] Medical - PN: A/P - Time Spent With Patient Total time spent is greater than 50% in coordination of care (as documented) at patient's floor/unit and/or counseling patient: - Narrative A/P Narrative: A: *Afib RVR: improved s/p dilt x1. rate controlled -Likely isolated incident from hypovolemia/nausea/vomiting. -Has not been on beta-blockers in the past because of bradycardia. Is on warfarin *Nausea/vomiting: This been ongoing for 3 weeks, exacerbated by dialysis -possible gastroparesis vs other -CT a/p no acute path *Hypovolemia: *Mild leukocytosis: no bandemia, Suspected to be reactive, afebrile, unremarkable CRP no respiratory symptoms -resolved *ESRD(MW): Follows with Dr. Garcia *Diabetes with neuropathy and hyperglycemia: A1c 9.1 *History of diastolic CHF: Stable *Anemia, chronic: *HTN: norvasc/losartan/torsemide *Hypothyroid: elevated TSH, free T4 wnl, recheck labs outpt when acute illness has resolved *hyponatremia: improved P: -s/p IVF's, may need more, monitor -antiemetics including benadryl -Monica Meek following -GES pending -Nephrology following -wound care -cont norvasc, hold torsemide/ARB for now -clears as tolerated -ppx: wafarin per pharm Medical - PN: Qual - VTE Deep Vein Thrombosis/Pulmonary Embolism Present on Admission: No
[2018-08-24] MEDS ORDERED: INSULIN REGULAR, HUMAN 1 UNIT/0.01 ML UNIT SQ SCH (07:30)
[2018-08-24] MEDS ORDERED: LEVOTHYROXINE 150 MCG TABLET PO SCH ×2 (07:30)
[2018-08-24] MEDS ORDERED: PANTOPRAZOLE 40 MG VIAL IV SCH (07:30)
[2018-08-24] MEDS ORDERED: SEVELAMER 800 MG TABLET PO SCH (08:00)
[2018-08-24] MEDS ORDERED: Sucroferric Oxyhydroxide [Velphoro] 500 MG PO SCH (08:00)
[2018-08-24] MEDS: DOCUSATE SODIUM 100 MG CAPSULE PO SCH ×2 (08:37→20:22)
[2018-08-24] MEDS: HEPARIN 5,000 UNIT/ML VIAL SQ SCH ×2 (08:38→20:22)
[2018-08-24] MEDS ORDERED: amLODIPine 10 MG TABLET PO SCH ×2 (09:00)
[2018-08-24] MEDS ORDERED: CALCITRIOL 0.25 MCG CAPSULE PO SCH ×2 (09:00)
[2018-08-24] MEDS ORDERED: GABAPENTIN 300 MG CAPSULE PO SCH ×2 (09:00)
[2018-08-24] MEDS ORDERED: ALLOPURINOL 100 MG TABLET PO SCH ×2 (09:00)
[2018-08-24] MEDS ORDERED: ATORVASTATIN 20 MG TABLET PO SCH ×2 (09:00)
[2018-08-24] MEDS ORDERED: CYANOCOBALAMIN (VITAMIN B-12) 500 MCG TABLET PO SCH (09:00)
[2018-08-24] MEDS ORDERED: INSULIN GLARGINE, HUMAN 1 UNIT/0.01 ML SQ SCH (09:00)
[2018-08-24] MEDS ORDERED: ONDANSETRON 4 MG/2 ML VIAL IV PRN (09:55)
[2018-08-24] MEDS ORDERED: METOCLOPRAMIDE 10 MG/2 ML VIAL IV PRN (09:55)
[2018-08-24] MEDS ORDERED: PROMETHAZINE 25 MG/ML VIAL IM PRN (09:55)
[2018-08-24] MEDS ORDERED: diphenhydrAMINE 50 MG/ML VIAL IV PRN (09:55)
[2018-08-24] MEDS ORDERED: ACETAMINOPHEN 325 MG TABLET PO PRN (09:55)
[2018-08-24] MEDS ORDERED: IPRATROPIUM/ALBUTEROL 3 ML AMPUL.NEB NEB PRN (09:55)
[2018-08-24] MEDS: INSULIN GLARGINE, HUMAN 1 UNIT/0.01 ML SQ SCH ×2 (10:00→20:22)
[2018-08-24] MEDS ORDERED: POTASSIUM CHLORIDE 20 MEQ in DEXTROSE 5% IN WATER 250 ML IV ONE (11:00)
[2018-08-24] MEDS: SEVELAMER 800 MG TABLET PO SCH ×2 (11:31→17:10)
[2018-08-24] MEDS ORDERED: INSULIN REGULAR, HUMAN 1 UNIT/0.01 ML UNIT SQ ONE (12:16)
--- NOTE | 2018-08-24 12:59 | Nephrology Progress Note ---
Subjective Patient information: Note initiated : 08/24/18 at 12:56 pm Service Date, if different from initiated Date: [] Patient: Bart Pagan 58 y/o M admitted on 08/23/18 for Nausea. Chief Complaint: [] Principal diagnosis: afib with rvr, nausea Interval history: Patient continues to have nausea this am HR control better has no appetite Denies diarrhea no SOB, CP no edema seen by GI last night and has recommended gastric emptying study Pertinent ROS: as above Objective - Vital Signs Vital signs: Vital Signs Temp Pulse Pulse Resp BP BP Pulse Ox 08/24/18 12:28 84 16 96 08/24/18 12:01 97.5 F 21 135/81 99 08/24/18 11:01 69 16 144/88 92 08/24/18 09:01 91 H 14 156/86 96 08/24/18 08:01 16 156/97 08/24/18 07:01 155/88 08/24/18 06:01 15 130/75 08/24/18 05:29 18 08/24/18 05:01 18 138/80 08/24/18 04:01 98.2 F 14 146/83 08/24/18 03:47 98.2 F 76 17 99 08/24/18 03:01 79 15 130/82 94 08/24/18 02:01 74 13 152/92 98 08/24/18 01:57 88 16 98 08/24/18 01:38 84 16 147/80 98 08/24/18 00:01 98.5 F 14 136/77 98 08/23/18 23:01 70 15 130/78 97 08/23/18 22:01 79 19 146/69 94 08/23/18 21:01 13 164/96 08/23/18 20:01 99.5 F H 15 133/71 95 08/23/18 20:00 14 100 08/23/18 19:02 14 112/68 08/23/18 18:11 98.0 F 88 20 146/86 95 08/23/18 17:55 98.0 F 88 14 146/86 98 08/23/18 17:25 77 14 127/79 96 08/23/18 17:16 76 13 127/79 95 08/23/18 16:46 83 13 145/54 94 08/23/18 16:31 74 15 123/96 92 08/23/18 16:19 69 13 95 08/23/18 16:16 69 17 120/93 92 08/23/18 16:01 17 116/57 08/23/18 15:46 20 113/56 08/23/18 15:31 21 97/83 08/23/18 15:16 96 H 17 126/59 95 08/23/18 15:14 79 18 93 08/23/18 15:01 15 144/83 08/23/18 14:52 22 08/23/18 14:46 156/102 08/23/18 14:24 119 H 148/92 93 08/23/18 14:16 106 H 148/92 95 08/23/18 13:44 109 H 96 08/23/18 13:33 114 H 152/72 96 08/23/18 13:16 104 H 148/111 97 08/23/18 13:01 124 H 159/79 89 L Intake and Output 08/23/18 08/24/18 08/24/18 21:59 05:59 13:59 Intake Total 2004 Output Total 175 / 775 400 / 775 400 / 400 Balance 325 / 1230 605 / 1230 -400 / -400 Intake: IV 500 / 1999 1000 / 2000 Sodium Chloride 0.9% 500 ml @ 500 / 500 125 mls/hr IV BOLUS ONE Rx#: [id number] Oral 5 / 5 Output: Void Amount 175 / 775 400 / 775 400 / 400 Other: Urine Appearance Clear Clear Urine Color Dark Yellow Dark Yellow # Voids 1 # Emeses 0 Weight 234 lb Intake & Output: Intake & Output 08/23/18 08/24/18 08/24/18 21:59 05:59 13:59 Intake Total 2004 Output Total 175 / 775 400 / 775 400 / 400 Balance 325 / 1230 605 / 1230 -400 / -400 Weight 234 lb Intake: IV 500 / 1999 1000 / 2000 Sodium Chloride 0.9% 500 ml @ 500 / 500 125 mls/hr IV BOLUS ONE Rx#: [id number] Oral 5 / 5 Output: Void Amount 175 / 775 400 / 775 400 / 400 Other: Urine Appearance Clear Clear Urine Color Dark Yellow Dark Yellow # Voids 1 # Emeses 0 - General Appearance General appearance: appears started age, obese EENT: mucous membranes moist Neck: no JVD Respiratory: clear Cardiology: no rub, no edema, irregular rhythm Gastrointestinal: no tenderness, no guarding Integumentary: warm and dry Neurologic: alert and oriented x3 Musculoskeletal: no erythema, no cyanosis Psychiatric: mood/affect appropriate - Lab 08/23/18 10:02 08/23/18 10:01 Most recent lab results Calcium 8.2 mg/dl (8.6-10.4) L 08/23/18 10:01 Phosphorus 2.9 mg/dL (2.7-4.5) 08/24/18 03:35 Magnesium 1.7 mg/dL (1.6-2.5) 08/24/18 03:35 Assessment and Plan (1) ESRD (end stage renal disease) Status: Acute (2) Hyponatremia Status: Acute (3) Nausea & vomiting Status: Acute (4) Atrial flutter Status: Acute - Narrative A/P Narrative: no indication for Y[facility] TESTER today, will hold has patient still very nauseous and no urgent need for the same will plan for HD tomorrow Hypokalemia: will give 20meq potassium IV, as patient has poor po intake and recheck labs hyponatremia: stable sodium at 130 HTN: BP control fair, ct home meds nausea, ? gastroparesis, will get gastric emptying study consider adding PPI will follow along
[2018-08-24] MEDS ORDERED: WARFARIN 5 MG TABLET PO ONE (14:00)
--- NOTE | 2018-08-24 14:04 | Internal Med Progress Note ---
Medical - PN: Subj Patient information: Note initiated : 08/24/18 at 2:04 pm Service Date, if different from initiated Date: [] Patient: Bart Pagan a 58 y/o M admitted on 08/23/18 for Nausea. Chief Complaint: [nausea and vomiting Interval history: Mr. Pagna is a 58 year old M migraineur with diabetic nephropathy on hemodialysis who is admitted for chronic intermittent nausea and vomiting with hyponatremia, hypovolemia, hyperglycemia and atrial fibrillation with RVR. He had significant improvement with antiemetics taken on a scheduled, rather than as needed basis. Dialysis was deferred today in light of his hospitalization. Sodium improved to 130 today. - Constitutional Vitals: Vital Signs Temp Pulse Resp BP Pulse Ox 97.5 F 84 16 135/81 96 08/24/18 12:01 08/24/18 12:28 08/24/18 12:28 08/24/18 12:01 08/24/18 12:28 Period Temp Pulse Resp BP Sys/Mancini Pulse Ox Last 24 Hr 97.5 F-99.5 F 69-119 13-22 97-164/54-102 92-100 Intake and Output 08/24/18 08/24/18 08/24/18 05:59 13:59 21:59 Intake Total 1005 / 2004 Output Total 400 / 775 400 / 400 Balance 605 / 1230 -400 / -400 Intake & Output: Intake & Output 08/24/18 08/24/18 08/24/18 05:59 13:59 21:59 Intake Total 1005 / 2005 Output Total 400 / 775 400 / 400 Balance 605 / 1230 -400 / -400 Intake: IV 1000 / 1999 Oral 5 / 5 Output: Void Amount 400 / 775 400 / 400 Other: Urine Appearance Clear Urine Color Dark Yellow # Voids 1 # Emeses 0 General appearance: cooperative, no acute distress, obese - Head Head exam: Present: atraumatic, normal inspection - Eye Eye exam: Present: normal appearance - Neck Neck exam: Present: normal inspection - Respiratory Respiratory exam: Absent: accessory muscle use - Psychiatric Psychiatric exam: Present: normal affect, normal mood - Skin Skin exam: Present: dry, warm Medical - PN: Obj Da - Labs CBC & Chem 7: 08/23/18 10:02 08/23/18 10:01 Labs: Abnormal Lab Results 08/24/18 08/24/18 08/24/18 03:35 03:35 03:35 WBC RBC 3.55 L Hgb 12.2 L Hct 35.9 L MCV 101.2 H MCH 34.4 H RDW 14.8 H Gran % Lymph % (Auto) Gran # Lymph # (Auto) RBC Morphology Abnorm A Macrocytosis 1+ A PT 21.1 H INR 1.8 H Sodium 130 L Potassium 3.0 L Chloride 89 L Anion Gap Creatinine 3.3 H Glucose 64 L Hemoglobin A1c Calcium 7.4 L Total Bilirubin AST Lactate Dehydrogenase 312 H Troponin T TSH Urine Protein Urine Glucose (UA) Urine Occult Blood 08/23/18 08/23/18 08/23/18 17:57 17:08 17:07 WBC RBC Hgb Hct MCV MCH RDW Gran % Lymph % (Auto) Gran # Lymph # (Auto) RBC Morphology Macrocytosis 1+ A PT INR Sodium Potassium Chloride Anion Gap Creatinine Glucose Hemoglobin A1c 9.1 H Calcium Total Bilirubin AST Lactate Dehydrogenase Troponin T TSH 40.87 H Urine Protein Urine Glucose (UA) Urine Occult Blood 08/23/18 08/23/18 08/23/18 13:20 11:30 10:02 WBC 12.7 H RBC 4.10 L Hgb Hct MCV 101.9 H MCH RDW 15.1 H Gran % 86.5 H Lymph % (Auto) 8.3 L Gran # 11.0 H Lymph # (Auto) 1.1 L RBC Morphology Macrocytosis PT INR Sodium Potassium Chloride Anion Gap Creatinine Glucose Hemoglobin A1c Calcium Total Bilirubin AST Lactate Dehydrogenase Troponin T 0.14 H* TSH Urine Protein >=500 A Urine Glucose (UA) >=500 A Urine Occult Blood 0.03 A 08/23/18 08/23/18 08/23/18 10:01 10:01 10:01 WBC RBC Hgb Hct MCV MCH RDW Gran % Lymph % (Auto) Gran # Lymph # (Auto) RBC Morphology Macrocytosis PT 17.9 H INR 1.5 H Sodium 123 L Potassium Chloride 81 L Anion Gap 17.0 H Creatinine 2.6 H Glucose 346 H Hemoglobin A1c Calcium 8.2 L Total Bilirubin 1.3 H AST 47 H Lactate Dehydrogenase Troponin T 0.16 H* TSH Urine Protein Urine Glucose (UA) Urine Occult Blood Meds: Medications Acetaminophen (Tylenol) 650 mg PO Q6HP PRN PRN Reason: PAIN/FEVER > 101 Albuterol/Ipratropium (Duoneb) 3 ml NEB Q4HRT PRN PRN Reason: Bronchospasm Allopurinol (Zyloprim) 100 mg PO QDAY [facility] Amlodipine Besylate (Norvasc) 10 mg PO QDAY [facility] Atorvastatin Calcium (Lipitor) 40 mg PO DAILY [facility] Calcitriol (Rocaltrol) 0.5 mcg PO MoWeFr@0900 [facility] Cyanocobalamin (Vitamin B-12) 1,000 mcg PO DAILY [facility] Diagnostic Test (Pha) (Accu-Chek) 1 each FS Q6 [facility] Last Admin: 08/24/18 11:34 Dose: 1 each Documented by: Diphenhydramine HCl (Benadryl) 12.5 mg IV Q4HP PRN PRN Reason: Nausea Docusate Sodium (Colace) 100 mg PO BID [facility] Ergocalciferol (Drisdol) 50,000 unit PO Zapata@0900 [facility] Gabapentin (Neurontin) 300 mg PO QDAY [facility] Heparin Sodium (Porcine) (Heparin) 5,000 unit SQ Q12 [facility] Insulin Glargine (Lantus) 40 unit SQ BID [facility] Insulin Human Lispro (Humalog) 0 unit SQ Q6 [facility]; Protocol Last Admin: 08/24/18 11:37 Dose: Not Given Documented by: Levothyroxine Sodium (Synthroid) 300 mcg PO QAMAC [facility] Metoclopramide HCl (Reglan) 5 mg IV Q6HP PRN PRN Reason: Nausea And Vomiting Last Admin: 08/24/18 11:32 Dose: 5 mg Documented by: Ondansetron HCl (Zofran) 4 mg IV Q4HP PRN PRN Reason: Nausea And Vomiting Pantoprazole Sodium (Protonix) 40 mg IV QAMAC [facility] Sucroferric Oxyhydroxide [ Velphoro] 500 [facility] Last Admin: 08/24/18 11:56 Dose: Not Given Documented by: Promethazine HCl (Phenergan) 12.5 mg IM Q6HP PRN PRN Reason: Nausea And Vomiting Sevelamer Carbonate (Renvela) 1,600 mg PO TIDCC [facility] Last Admin: 08/24/18 11:31 Dose: 1,600 mg Documented by: Sodium Chloride (Saline Flush) 10 ml IV Q8 [facility] Last Admin: 08/24/18 14:03 Dose: 10 ml Documented by: Warfarin Sodium (Coumadin Per Pharmacy) 1 order PO UD [facility] Medical - PN: A/P - Time Spent With Patient Total time spent is greater than 50% in coordination of care (as documented) at patient's floor/unit and/or counseling patient: less than 15 minutes (1) Nausea & vomiting Status: Acute Assessment and plan: Again, suspect nausea and vomiting is multifactorial (volume changes during dialysis, hyponatremia, hypothyroid, functional nausea secondary to migraine--see consult note for greater detail). Gastric emptying scan is scheduled at [facility]. In the interim, given his improvement, he can be discharged from a GI perspective. I would recommend he taken Reglan 10mg PO AC TID and HS every day and Zofran 4mg every 6 hours for 24 hours following dialysis (can use PRN on non-dialysis days). He will follow up with me as an outpatient to schedule EGD and review findings of gastric emptying scan. Current Visit: Yes Medical - PN: Qual - VTE Deep Vein Thrombosis/Pulmonary Embolism Present on Admission: No
[2018-08-24 17:07] LABS: Blood Urea Nitrogen 15 mg/dl (6-20)
[2018-08-25] MEDS ORDERED: DEXTROSE 50% 50 ML VIAL IV ONE (03:27)
[2018-08-25] MEDS: 0.9 % SODIUM CHLORIDE 10 ML SYRINGE IV SCH ×3 (06:00→21:43)
[2018-08-25] MEDS: INSULIN LISPRO 1 UNIT/0.01 ML UNIT SQ SCH ×3 (06:00→18:47)
[2018-08-25 06:17] LABS: Blood Urea Nitrogen 16 mg/dl (6-20)
[2018-08-25 06:39] LABS: Basophils # (Auto) 0.1 K/mcL (0.0-0.3); Basophils % (Auto) 0.9 % (0.0-2.0); Eosinophils # (Auto) 0.1 K/mcL (0.0-0.7); Eosinophils % (Auto) 2.3 % (0.0-7.0); Granulocytes % (Auto) 63.1 % (38.0-78.0); Lymphocytes # (Auto) 1.7 K/mcL (1.5-4.8); Lymphocytes % (Auto) 26.7 % (15.5-49.0); Mean Cell Volume 102.1 fL (80.0-100.0); Mean Corpuscular HGB Conc 33.4 g/dL (31.0-36.0); Monocytes # (Auto) 0.4 K/mcL (0.1-0.9); Platelet Count 253 K/mcL (140-440); Red Cell Distribution Width 15.3 % (11.5-14.5)
[2018-08-25] MEDS: SEVELAMER 800 MG TABLET PO SCH ×3 (07:43→18:46)
[2018-08-25] MEDS: PANTOPRAZOLE 40 MG VIAL IV SCH (07:43)
[2018-08-25] MEDS: LEVOTHYROXINE 150 MCG TABLET PO SCH (07:43)
[2018-08-25] MEDS: HEPARIN 5,000 UNIT/ML VIAL SQ SCH ×2 (09:08→21:43)
[2018-08-25] MEDS: CYANOCOBALAMIN (VITAMIN B-12) 500 MCG TABLET PO SCH (09:09)
[2018-08-25] MEDS: amLODIPine 10 MG TABLET PO SCH (09:10)
[2018-08-25] MEDS: ATORVASTATIN 20 MG TABLET PO SCH (09:10)
[2018-08-25] MEDS: DOCUSATE SODIUM 100 MG CAPSULE PO SCH ×2 (09:10→21:43)
[2018-08-25] MEDS: ALLOPURINOL 100 MG TABLET PO SCH (09:10)
[2018-08-25] MEDS: GABAPENTIN 300 MG CAPSULE PO SCH (09:10)
[2018-08-25] MEDS: INSULIN GLARGINE, HUMAN 1 UNIT/0.01 ML SQ SCH ×2 (10:30→22:50)
--- NOTE | 2018-08-25 11:54 | Nephrology Progress Note ---
Subjective Patient information: Note initiated : 08/25/18 at 11:49 am Service Date, if different from initiated Date: [] Patient: Bart Pagan 58 y/o M admitted on 08/23/18 for Nausea. Chief Complaint: [] Principal diagnosis: afib with rvr, nausea Interval history: nO OVERNIGHT EVENTS NAUSEA MUCH IMPROVED ABLE TO TOLERATE PO constipation resolved no SOB, CP no edema no CP/dizziness/SOB no other issues Pertinent ROS: as above Objective - Vital Signs Vital signs: Vital Signs Temp Pulse Resp BP Pulse Ox 08/25/18 08:00 98.2 F 16 138/70 98 08/25/18 04:01 98.8 F 16 117/54 98 08/25/18 00:29 98.7 F 16 118/72 08/24/18 20:28 124/76 08/24/18 20:06 98.7 F 98 08/24/18 20:00 98 08/24/18 16:36 99.0 F 16 130/81 95 08/24/18 16:19 130/81 08/24/18 12:28 84 16 96 08/24/18 12:01 97.5 F 21 135/81 99 Intake and Output 08/24/18 08/25/18 08/25/18 21:59 05:59 13:59 Intake Total 600 / 1560 960 / 1560 220 / 220 Output Total 325 / 725 Balance 600 / 835 635 / 835 220 / 220 Intake: Oral 600 / 1560 960 / 1560 220 / 220 Output: Void Amount 325 / 725 Other: Meal Dinner snack Breakfast Percent of Meal Consumed 100% 100% 100% Feeding Ability Independent Independent Urine Appearance Clear Urine Color Bright Yellow Stool Size Moderate Stool Color Brown Stool Consistency Soft # Voids 1 # Bowel Movements 1 Weight 232 lb Intake & Output: Intake & Output 08/24/18 08/25/18 08/25/18 21:59 05:59 13:59 Intake Total 600 / 1560 960 / 1560 220 / 220 Output Total 325 / 725 Balance 600 / 835 635 / 835 220 / 220 Weight 232 lb Intake: Oral 600 / 1560 960 / 1560 220 / 220 Output: Void Amount 325 / 725 Other: Meal Dinner snack Breakfast Percent of Meal Consumed 100% 100% 100% Feeding Ability Independent Independent Urine Appearance Clear Urine Color Bright Yellow Stool Size Moderate Stool Color Brown Stool Consistency Soft # Voids 1 # Bowel Movements 1 - General Appearance General appearance: appears started age EENT: mucous membranes moist Neck: no JVD Respiratory: clear Cardiology: no rub, no edema, irregular rhythm Gastrointestinal: no tenderness, no guarding Integumentary: warm and dry Neurologic: alert and oriented x3 Musculoskeletal: no deformities, no erythema Psychiatric: mood/affect appropriate - Lab 08/25/18 03:52 08/25/18 03:52 Most recent lab results Calcium 7.6 mg/dl (8.6-10.4) L 08/25/18 03:52 Phosphorus 2.9 mg/dL (2.7-4.5) 08/24/18 03:35 Magnesium 1.7 mg/dL (1.6-2.5) 08/24/18 03:35 Assessment and Plan (1) ESRD (end stage renal disease) Status: Acute (2) Hyponatremia Status: Acute (3) Nausea & vomiting Status: Acute (4) Atrial flutter Status: Acute - Narrative A/P Narrative: Will do HD today for 3.5hrs, using revaclear 400 dialyser, 3K/2.5ca dialysate, UF goal of 1L next HD as outpatient on Monday please dose meds to egfr hypokalemia, mild will reevaluate in pm after HD his oral intake has improved and hope this will improve with it hyponatremia: mild, asymptomatic etiology multifactorial including elevated TSH, poor oral intake and renal issues nausea, vomiting: better he will follow with GI to get EGD and gastric emptying study as outpt scheduled meds ad recommended by GI Anemia: stable Hb above threshold for lela will monitor will follow along appreciate hospitalist help in managing this patient
[2018-08-25] MEDS ORDERED: WARFARIN 10 MG TABLET PO ONE (14:00)
--- NOTE | 2018-08-25 20:26 | Internal Med Progress Note ---
Medical - PN: Subj Patient information: Note initiated : 08/25/18 at 8:26 pm Service Date, if different from initiated Date: [] Patient: Bart Pagan a 58 y/o M admitted on 08/23/18 for Nausea. Chief Complaint: [] Interval history: Mr. Pagan is a 58 year old M Who presents to the ED for nausea vomiting. He had dialysis yesterday has been nauseous and retching since then. However this nausea vomiting been going on for 3 weeks. In the ED he was hyperventilating very comfortable. Had multiple medications in the ER finally has some improvement in at this time but is quite sedated. Was also found to be hyperglycemic. And was found to be in A. fib RVR mildly with rates 120s. He was given p.o. diltiazem has better rates at this time. He is not on any AV dee blocking agents. Per history from provider he has been bradycardic in the past which I assume is the reason why is not on AV dee blockers. This latest event is probably exacerbated by his nausea vomiting. Has had no fevers chills no diarrhea no headache chest pain or shortness of breath. He has missed a few doses of his warfarin and thus his INR is subtherapeutic. Also found to be hyponatremic. Chest x-ray read by radiology unremarkable, question of left lower lobe infiltrate, however he has no respiratory symptoms and his CRP is negative. 1/4 Has some nausea this morning not as bad as yesterday but receiving medications. Some vomiting. No chest pain shortness of breath. Coughing 1/5-patient feeling better. Improved nausea. Starting oral diet. Ongoing hemodialysis. Possible discharge in 24 hours if continues to improve. Would need outpatient gastric emptying study/GI follow-up, also will need wound care follow-up on discharge. - Constitutional Vitals: Vital Signs Temp Pulse Resp BP Pulse Ox 98.6 F 83 18 120/72 96 08/25/18 17:43 08/25/18 17:43 08/25/18 16:00 08/25/18 17:43 08/25/18 16:00 Period Temp Pulse Resp BP Sys/Mancini Pulse Ox Last 24 Hr 98.0 F-98.8 F 73-101 16-18 117-187/54-106 96-98 Intake and Output 08/25/18 08/25/18 08/25/18 05:59 13:59 21:59 Intake Total 960 / 1560 580 / 580 Output Total 325 / 725 1725 / 1725 Balance 635 / 835 580 / -1145 -1725 / -1145 Intake & Output: Intake & Output 08/25/18 08/25/18 08/25/18 05:59 13:59 21:59 Intake Total 960 / 1560 580 / 580 Output Total 325 / 725 1725 / 1725 Balance 635 / 835 580 / -1145 -1725 / -1145 Intake: Oral 960 / 1560 580 / 580 Output: Void Amount 325 / 725 325 / 325 Hemodialysis UF 1400 / 1400 Other: Meal snack Lunch Percent of Meal Consumed 100% 100% Feeding Ability Independent Urine Appearance Clear Urine Color Bright Yellow Stool Size Moderate Stool Color Brown Stool Consistency Soft # Voids 1 1 # Bowel Movements 1 General appearance: cooperative, no acute distress Exam: Alert oriented No labored breathing No anxiety Medical - PN: Obj Da - Labs CBC & Chem 7: 08/25/18 03:52 08/25/18 19:40 Labs: Abnormal Lab Results 08/25/18 08/25/18 08/25/18 03:52 03:52 03:52 WBC RBC 3.30 L Hgb 11.3 L Hct 33.7 L MCV 102.1 H MCH 34.1 H RDW 15.3 H Gran % Lymph % (Auto) Gran # Lymph # (Auto) RBC Morphology Macrocytosis PT 21.0 H INR 1.8 H Sodium 129 L Potassium 3.2 L Chloride 91 L Carbon Dioxide 21 L Anion Gap 17.0 H Creatinine 4.1 H Glucose 159 H Hemoglobin A1c Calcium 7.6 L Total Bilirubin AST Lactate Dehydrogenase Troponin T TSH Urine Protein Urine Glucose (UA) Urine Occult Blood 08/24/18 08/24/18 08/24/18 16:02 03:35 03:35 WBC RBC 3.55 L Hgb 12.2 L Hct 35.9 L MCV 101.2 H MCH 34.4 H RDW 14.8 H Gran % Lymph % (Auto) Gran # Lymph # (Auto) RBC Morphology Abnorm A Macrocytosis 1+ A PT INR Sodium 130 L 130 L Potassium 3.0 L Chloride 90 L 89 L Carbon Dioxide Anion Gap Creatinine 3.7 H 3.3 H Glucose 64 L Hemoglobin A1c Calcium 7.2 L 7.4 L Total Bilirubin AST Lactate Dehydrogenase 312 H Troponin T TSH Urine Protein Urine Glucose (UA) Urine Occult Blood 08/24/18 08/23/18 08/23/18 03:35 17:57 17:08 WBC RBC Hgb Hct MCV MCH RDW Gran % Lymph % (Auto) Gran # Lymph # (Auto) RBC Morphology Macrocytosis PT 21.1 H INR 1.8 H Sodium Potassium Chloride Carbon Dioxide Anion Gap Creatinine Glucose Hemoglobin A1c 9.1 H Calcium Total Bilirubin AST Lactate Dehydrogenase Troponin T TSH 40.87 H Urine Protein Urine Glucose (UA) Urine Occult Blood 08/23/18 08/23/18 08/23/18 17:07 13:20 11:30 WBC RBC Hgb Hct MCV MCH RDW Gran % Lymph % (Auto) Gran # Lymph # (Auto) RBC Morphology Macrocytosis 1+ A PT INR Sodium Potassium Chloride Carbon Dioxide Anion Gap Creatinine Glucose Hemoglobin A1c Calcium Total Bilirubin AST Lactate Dehydrogenase Troponin T 0.14 H* TSH Urine Protein >=500 A Urine Glucose (UA) >=500 A Urine Occult Blood 0.03 A 08/23/18 08/23/18 08/23/18 10:02 10:01 10:01 WBC 12.7 H RBC 4.10 L Hgb Hct MCV 101.9 H MCH RDW 15.1 H Gran % 86.5 H Lymph % (Auto) 8.3 L Gran # 11.0 H Lymph # (Auto) 1.1 L RBC Morphology Macrocytosis PT 17.9 H INR 1.5 H Sodium Potassium Chloride Carbon Dioxide Anion Gap Creatinine Glucose Hemoglobin A1c Calcium Total Bilirubin AST Lactate Dehydrogenase Troponin T 0.16 H* TSH Urine Protein Urine Glucose (UA) Urine Occult Blood 08/23/18 10:01 WBC RBC Hgb Hct MCV MCH RDW Gran % Lymph % (Auto) Gran # Lymph # (Auto) RBC Morphology Macrocytosis PT INR Sodium 123 L Potassium Chloride 81 L Carbon Dioxide Anion Gap 17.0 H Creatinine 2.6 H Glucose 346 H Hemoglobin A1c Calcium 8.2 L Total Bilirubin 1.3 H AST 47 H Lactate Dehydrogenase Troponin T TSH Urine Protein Urine Glucose (UA) Urine Occult Blood Meds: Medications Acetaminophen (Tylenol) 650 mg PO Q6HP PRN PRN Reason: PAIN/FEVER > 101 Albuterol/Ipratropium (Duoneb) 3 ml NEB Q4HRT PRN PRN Reason: Bronchospasm Allopurinol (Zyloprim) 100 mg PO QDAY [facility] Last Admin: 08/25/18 09:10 Dose: 100 mg Documented by: Amlodipine Besylate (Norvasc) 10 mg PO QDAY [facility] Last Admin: 08/25/18 09:10 Dose: 10 mg Documented by: Atorvastatin Calcium (Lipitor) 40 mg PO DAILY [facility] Last Admin: 08/25/18 09:10 Dose: 40 mg Documented by: Calcitriol (Rocaltrol) 0.5 mcg PO MoWeFr@0900 [facility] Cyanocobalamin (Vitamin B-12) 1,000 mcg PO DAILY [facility] Last Admin: 08/25/18 09:09 Dose: 1,000 mcg Documented by: Diagnostic Test (Pha) (Accu-Chek) 1 each FS Q6 [facility] Last Admin: 08/25/18 18:47 Dose: 1 each Documented by: Diphenhydramine HCl (Benadryl) 12.5 mg IV Q4HP PRN PRN Reason: Nausea Docusate Sodium (Colace) 100 mg PO BID [facility] Last Admin: 08/25/18 09:10 Dose: 100 mg Documented by: Ergocalciferol (Drisdol) 50,000 unit PO Zapata@0900 [facility] Folic Acid (Folic Acid) 2 mg PO DAILY [facility] Gabapentin (Neurontin) 300 mg PO QDAY [facility] Last Admin: 08/25/18 09:10 Dose: 300 mg Documented by: Heparin Sodium (Porcine) (Heparin) 5,000 unit SQ Q12 [facility] Last Admin: 08/25/18 09:08 Dose: 5,000 unit Documented by: Insulin Glargine (Lantus) 40 unit SQ BID [facility] Last Admin: 08/25/18 10:30 Dose: 40 units Documented by: Insulin Human Lispro (Humalog) 0 unit SQ Q6 [facility]; Protocol Last Admin: 08/25/18 18:47 Dose: Not Given Documented by: Levothyroxine Sodium (Synthroid) 300 mcg PO QAMAC [facility] Last Admin: 08/25/18 07:43 Dose: 300 mcg Documented by: Metoclopramide HCl (Reglan) 5 mg IV Q6HP PRN PRN Reason: Nausea And Vomiting Last Admin: 08/24/18 11:32 Dose: 5 mg Documented by: Ondansetron HCl (Zofran) 4 mg IV Q4HP PRN PRN Reason: Nausea And Vomiting Pantoprazole Sodium (Protonix) 40 mg IV QAMAC [facility] Last Admin: 08/25/18 07:43 Dose: 40 mg Documented by: Sucroferric Oxyhydroxide [ Velphoro] 500 Mg Tablet 1 dose PO TIDCC [facility] Last Admin: 08/25/18 18:46 Dose: Not Given Documented by: Promethazine HCl (Phenergan) 12.5 mg IM Q6HP PRN PRN Reason: Nausea And Vomiting Sevelamer Carbonate (Renvela) 1,600 mg PO TIDCC [facility] Last Admin: 08/25/18 18:46 Dose: 1,600 mg Documented by: Sodium Chloride (Saline Flush) 10 ml IV Q8 [facility] Last Admin: 08/25/18 14:43 Dose: Not Given Documented by: Warfarin Sodium (Coumadin Per Pharmacy) 1 order PO [facility] [place] Medical - PN: A/P - Time Spent With Patient Total time spent is greater than 50% in coordination of care (as documented) at patient's floor/unit and/or counseling patient: 15 - 24 minutes (1) Bleeding from PICC line Status: Acute Assessment and plan: * Recurrent nausea vomiting-clinically improving. Likely secondary underlying gastroparesis. Outpatient gastric emptying scheduled. Advancing diet as tolerated. Will follow with GI as outpatient * A. fib RVR now rate controlled. On Coumadin for CVA prophylaxis * ESRD on hemodialysis * History of DM type II along with neuropathy on basal prandial insulin * History of hypertension on amlodipine * Neuropathy on gabapentin * Hyperlipidemia on statin * History of gout on allopurinol * Hypothyroidism thyroxine * DVT prophylaxis currently on Coumadin * Full code Plan * Possible discharge in 24 hours * HD per nephrology * Outpatient gastric imaging study and wound care follow-up * Advance diet as tolerated * Continue pre-existing medical management as before Current Visit: No Medical - PN: Qual - VTE Deep Vein Thrombosis/Pulmonary Embolism Present on Admission: No
[2018-08-26] MEDS: INSULIN LISPRO 1 UNIT/0.01 ML UNIT SQ SCH ×2 (00:31→06:58)
[2018-08-26] MEDS ORDERED: DEXTROSE 50% 50 ML VIAL IV ONE (00:37)
--- NOTE | 2018-08-26 06:32 | Discharge Summary ---
Medical - DS: Prov Patient information: Note initiated : 08/26/18 at 6:30 am Service Date, if different from initiated Date: [] Patient: Bart Pagan 58 y/o M admitted on 08/23/18 for Nausea. Chief Complaint: [] Date of admission: 08/23/18 17:55 Discharge date: 08/26/18 Primary care physician: ONEIL Goodson Consults: 08/23/18 Consult to Physician [CONS] Stat Comment: Consulting Provider: Tez Guajardo Reason For Exam: Physician to Consult 08/23/18 15:05 Consult to Physician [CONS] Stat Comment: Consulting Provider: Amy Garcia Reason For Exam: Physician to Consult Medical - DS: Meds - Discharge Medications Active and Home Medications: Home Medications insulin detemir (U-100) 100 unit/mL (3 mL) subcutaneous pen 80 unit SUB-Q BID ml 01/15/16 [History Confirmed 08/23/18 Last Taken Unknown] levothyroxine 150 mcg capsule 300 mcg PO ACB 05/27/16 [History Confirmed 08/23/18 Last Taken Unknown] insulin aspart U- 100 100 unit/mL subcutaneous pen 15 unit SUB-Q QPMAC ml 01/02/17 [History Confirmed 08/23/18 Last Taken Unknown] ergocalciferol (vitamin D2) 50,000 unit capsule 50,000 unit PO ORTIZ cap 03/24/17 [History Confirmed 08/23/18 Last Taken Unknown] Accu-Chek 1 each FS ACHS strip 05/01/17 [Rx Confirmed 08/23/18 Last Taken Unknown] Acetaminophen [Tylenol] 650 mg PO Q4-6HP PRN tab 05/01/17 [Rx Confirmed 08/23/18 Last Taken Unknown] theophylline ER 400 mg tablet,extended release 24 hr 200 mg PO BID #14 tab 05/29/17 [Rx Confirmed 08/23/18 Last Taken Unknown] sucroferric oxyhydroxide 500 mg chewable tablet 500 mg PO TID #90 tab 02/07/18 [Rx Confirmed 08/23/18 Last Taken Unknown] allopurinol 100 mg tablet 100 mg PO QDAY #30 tab 05/22/18 [Rx Confirmed 08/23/18 Last Taken Unknown] atorvastatin 40 mg tablet 40 mg PO QDAY 06/07/18 [History Confirmed 08/23/18 Last Taken Unknown] calcitriol 0.5 mcg capsule 0.5 mcg PO MOWEFR cap 06/07/18 [History Confirmed 08/23/18 Last Taken Unknown] sevelamer HCl 800 mg tablet 1,600 mg PO TID tab 06/07/18 [History Confirmed 08/23/18 Last Taken Unknown] warfarin 5 mg tablet 10 mg PO SUTUTHSA 06/07/18 [History Confirmed 08/23/18 Last Taken Unknown] losartan 50 mg tablet 50 mg PO QDAY #30 tab 07/02/18 [Rx Confirmed 08/23/18 Last Taken Unknown] amlodipine 10 mg tablet 10 mg PO QDAY #90 tab 08/20/18 [Rx Confirmed 08/23/18 Last Taken Unknown] gabapentin 300 mg capsule 300 mg PO QDAY 30 Days #30 cap 08/20/18 [Rx Confirmed 08/23/18 Last Taken Unknown] torsemide 20 mg tablet 40 mg PO QDAY #180 tab 08/20/18 [Rx Confirmed 08/23/18 Last Taken Unknown] Warfarin [Coumadin] 15 mg PO MOWEFR 08/23/18 [History Confirmed 08/23/18 Last Taken Unknown] Medical - DS: Hosp Hospital course: Discharge diagnosis * Recurrent nausea vomiting-clinically improving. Likely secondary underlying gastroparesis. Outpatient gastric emptying scheduled at [place]. Will follow up with Monica FONTAINE. Discharging home * A. fib RVR now rate controlled. On Coumadin for CVA prophylaxis * ESRD on hemodialysis. Continue HD as outpatient * history of DM type II along with neuropathy on basal prandial insulin * History of hypertension on amlodipine * Neuropathy on gabapentin * Hyperlipidemia on statin * History of gout on allopurinol * Hypothyroidism thyroxine * DVT prophylaxis currently on Coumadin Brief hospital course Mr. Pagan is a 58 year old M Who presents to the ED for nausea vomiting. He had dialysis yesterday has been nauseous and retching since then. However this nausea vomiting been going on for 3 weeks. In the ED he was hyperventilating very comfortable. Had multiple medications in the ER finally has some improvement in at this time but is quite sedated. Was also found to be hyperglycemic. And was found to be in A. fib RVR mildly with rates 120s. He was given p.o. diltiazem has better rates at this time. He is not on any AV dee blocking agents. Per history from provider he has been bradycardic in the past which I assume is the reason why is not on AV dee blockers. This latest event is probably exacerbated by his nausea vomiting. Has had no fevers chills no diarrhea no headache chest pain or shortness of breath. He has missed a few doses of his warfarin and thus his INR is subtherapeutic. Also found to be hyponatremic. Chest x-ray read by radiology unremarkable, question of left lower lobe infiltrate, however he has no respiratory symptoms and his CRP is negative. 08/24 Has some nausea this morning not as bad as yesterday but receiving medications. Some vomiting. No chest pain shortness of breath. Coughing 08/25-patient feeling better. Improved nausea. Starting oral diet. Ongoing hemodialysis. Possible discharge in 24 hours if continues to improve. Would need outpatient gastric emptying study/GI follow-up, also will need wound care follow-up on discharge. 08/26-patient doing well. No overnight events. Nausea resolved. Will follow up with Monica FONTAINE as outpatient/outpatient gastric emptying study at [place]. No overnight events. Feels at baseline. Requesting discharge. We will continue hemodialysis outpatient. Discharge diagnosis: . - Time Spent with Patient Total time spent providing and/or coordinating discharge services: Greater than 30 minutes Medical - DS: Exam - Constitutional Vitals: Vital Signs Temp Pulse Pulse Resp BP Pulse Ox 08/26/18 01:32 98.9 F 18 120/75 94 08/25/18 20:25 100.5 F H 16 115/70 08/25/18 20:01 130/88 08/25/18 17:43 98.6 F 83 120/72 08/25/18 17:31 120/72 08/25/18 17:00 152/77 08/25/18 16:57 98.8 F 83 152/77 08/25/18 16:35 98.8 F 83 159/90 08/25/18 16:34 159/90 08/25/18 16:06 98.8 F 87 187/97 08/25/18 16:01 187/97 08/25/18 16:00 98.8 F 18 159/90 96 08/25/18 15:33 181/104 08/25/18 15:30 98.8 F 85 181/104 08/25/18 15:08 184/104 08/25/18 15:05 98.8 F 82 184/104 08/25/18 14:37 98.4 F 75 166/106 08/25/18 14:15 182/98 08/25/18 14:12 98.3 F 73 182/98 08/25/18 14:06 98.3 F 101 H 139/85 08/25/18 13:35 139/85 08/25/18 12:11 98.0 F 78 132/85 96 08/25/18 09:06 138/70 08/25/18 08:00 98.2 F 79 16 138/70 96 Intake and Output 08/25/18 08/26/18 08/26/18 21:59 05:59 13:59 Intake Total 240 / 820 Output Total 1974 Balance -1735 / -1155 Intake: Oral 240 / 820 Output: Void Amount 575 / 575 Hemodialysis UF 1400 / 1400 Other: Meal Dinner Percent of Meal Consumed 100% # Voids 1 Weight 230 lb 8 oz Medical - DS: Data Labs on day of discharge: Labs from last 24 hours 08/26/18 08/25/18 08/25/18 04:07 19:40 03:52 WBC 6.3 RBC 3.30 L Hgb 11.3 L Hct 33.7 L MCV 102.1 H MCH 34.1 H MCHC 33.4 RDW 15.3 H Plt Count 253 MPV 8.1 Gran % 63.1 Lymph % (Auto) 26.7 Coos % (Auto) 7.0 Eos % (Auto) 2.3 Baso % (Auto) 0.9 Gran # 4.0 Lymph # (Auto) 1.7 Coos # (Auto) 0.4 Eos # (Auto) 0.1 Baso # (Auto) 0.1 PT 20.8 H INR 1.8 H Potassium 3.4 Medical - DS: A/P - Patient/Caregiver Discharge Instructions Activity: increase activity as tolerated Diet: Renal/Consistent Carbs Additional Instructions: Continue with dialysis outpatient follow-up GI Monica Meek in 1 week Outpatient [facility] schedule appointment prior to discharge Wound care involving amputation stump as outpatient with Dr. lechuga Return to ER with worsening nausea vomiting abdominal pain Continue medications as prior - Problem Maintenance (1) Bleeding from PICC line Status: Acute Qualifiers: Encounter type: subsequent encounter Qualified Code(s): T82.838D - Hemorrhage due to vascular prosthetic devices, implants and grafts, subsequent encounter - Follow up Plan Follow up with: Wendy Tamayo ARNP [Primary Care Provider] - Monica Meek ARNP [Nurse Practitioner] - (Please call to schedule for a follow up aappointment within 1 week.) Disposition: Home, Self-Care Prognosis: Fair Rehab Potential: Fair I certify that the patient requires SNF services: No Overall status at discharge: patient is back to baseline Medical - DS: Qual - VTE Deep Vein Thrombosis/Pulmonary Embolism Present on Admission: No
[2018-08-26] MEDS: 0.9 % SODIUM CHLORIDE 10 ML SYRINGE IV SCH (07:07)
[2018-08-26] MEDS: HEPARIN 5,000 UNIT/ML VIAL SQ SCH (07:40)
[2018-08-26] MEDS: CYANOCOBALAMIN (VITAMIN B-12) 500 MCG TABLET PO SCH (07:40)
[2018-08-26] MEDS: SEVELAMER 800 MG TABLET PO SCH (07:40)
[2018-08-26] MEDS: ALLOPURINOL 100 MG TABLET PO SCH (07:40)
[2018-08-26] MEDS: LEVOTHYROXINE 150 MCG TABLET PO SCH (07:40)
[2018-08-26] MEDS: PANTOPRAZOLE 40 MG VIAL IV SCH (07:40)
[2018-08-26] MEDS: GABAPENTIN 300 MG CAPSULE PO SCH (07:41)
[2018-08-26] MEDS: ATORVASTATIN 20 MG TABLET PO SCH (07:41)
[2018-08-26] MEDS: DOCUSATE SODIUM 100 MG CAPSULE PO SCH (07:41)
[2018-08-26] MEDS: INSULIN GLARGINE, HUMAN 1 UNIT/0.01 ML SQ SCH (07:41)
[2018-08-26] MEDS: amLODIPine 10 MG TABLET PO SCH (07:41)
[2018-08-26] MEDS ORDERED: ERGOCALCIFEROL (VITAMIN D2) 50,000 UNIT CAPSULE PO SCH ×3 (09:00)
[2018-08-26] MEDS ORDERED: FOLIC ACID 1 MG TABLET PO SCH (09:00)
[2018-08-27] MEDS ORDERED: CALCITRIOL 0.25 MCG CAPSULE PO SCH (09:00)
== END 2018-08-26 10:03 | disposition home or self-care (01) | DRG 73 ==
LOC: ED 08:52 → ICU 17:55
PROVIDERS: ADMIT Internal Medicine; ATTEND Internal Medicine

== ENCOUNTER 2018-09-02 11:30 | Inpatient (IN) ==
[2018-09-02] MEDS ORDERED: VANCOMYCIN 1,500 MG in 0.9 % SODIUM CHLORIDE 500 ML IV ONE (11:49)
--- NOTE | 2018-09-02 11:52 | Emergency Department Note ---
Wound/Laceration HPI - General Chief Complaint: Wound/Laceration Stated Complaint: right foot wound Time Seen by Provider: 09/02/18 11:41 Source: patient Mode of arrival: ambulatory Limitations: no limitations - History of Present Illness HPI Narrative: This patient of began having swelling of his right foot where he had a partial amputation by Dr. Love in the past. It started swelling quite markedly yesterday. He had a partial amputation for a wound that would not heal. He does have type 2 diabetes. No other significant symptoms at this time. - Related Data Home Medications Medication Instructions Recorded Confirmed insulin detemir (U-100) 100 80 unit SUB-Q BID ml 01/15/16 08/23/18 unit/mL (3 mL) subcutaneous pen levothyroxine 150 mcg capsule 300 mcg PO ACB 05/27/16 08/23/18 insulin aspart U- 100 100 unit/mL 15 unit SUB-Q QPMAC ml 01/02/17 08/23/18 subcutaneous pen ergocalciferol (vitamin D2) 50,000 50,000 unit PO ORTIZ cap 03/24/17 08/23/18 unit capsule atorvastatin 40 mg tablet 40 mg PO QDAY 06/07/18 08/23/18 calcitriol 0.5 mcg capsule 0.5 mcg PO MOWEFR cap 06/07/18 08/23/18 sevelamer HCl 800 mg tablet 1,600 mg PO TID tab 06/07/18 08/23/18 warfarin 5 mg tablet 10 mg PO SUTUTHSA 06/07/18 08/23/18 Warfarin [Coumadin] 15 mg PO MOWEFR 08/23/18 08/23/18 Previous Rx's Medication Instructions Recorded Accu-Chek 1 each FS ACHS strip 05/01/17 Acetaminophen [Tylenol] 650 mg PO Q4-6HP PRN tab 05/01/17 theophylline ER 400 mg 200 mg PO BID #14 tab 05/29/17 tablet,extended release 24 hr sucroferric oxyhydroxide 500 mg 500 mg PO TID #90 tab 02/07/18 chewable tablet allopurinol 100 mg tablet 100 mg PO QDAY #30 tab 05/22/18 losartan 50 mg tablet 50 mg PO QDAY #30 tab 07/02/18 amlodipine 10 mg tablet 10 mg PO QDAY #90 tab 08/20/18 gabapentin 300 mg capsule 300 mg PO QDAY 30 Days #30 cap 08/20/18 torsemide 20 mg tablet 40 mg PO QDAY #180 tab 08/20/18 Metoclopramide [Reglan] 5 mg PO Q6HP PRN #20 tab 08/26/18 Omeprazole [PriLOSEC] 20 mg PO ACB #20 cap 08/26/18 Ondansetron [Zofran ODT] 4 mg SL Q6HP PRN #20 tab 08/26/18 Allergies Allergy/AdvReac Type Severity Reaction Status Date / Time Beta-Blockers AdvReac Mild Hypotension Verified 08/23/18 08:54 (Beta-Adrenergic Bloc Review of Systems All systems ED: reviewed and negative except as stated. 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) Cough (Chronic) Vision problems (Chronic) Hand pain (Chronic) Thoracic back pain (Chronic) Spinal stenosis of thoracic region (Chronic) Cervical radiculopathy (Chronic) Spinal stenosis in cervical region (Chronic) Knee joint pain (Chronic) Elbow joint pain (Chronic) Atrial fibrillation (Chronic) Essential hypertension (Chronic) Anemia (Chronic) Vitamin D deficiency (Chronic) Diabetic foot ulcer (Chronic) 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) Diabetes mellitus (Chronic) Hypothyroidism (Chronic) Musculoskeletal pain (Chronic) Chronic kidney disease, stage IV (severe) (Chronic) Elevated erythrocyte sedimentation rate (Chronic) Hyperparathyroidism due to renal insufficiency (Chronic) Proteinuria (Chronic) Secondary hyperparathyroidism of renal origin (Chronic) Chronic kidney disease, stage IV (severe) (Chronic) Hyperuricemia (Chronic) Ulcer of foot (Acute) Secondary hyperparathyroidism (Chronic 09/15/13) Acidosis, renal tubular (Acute 08/21/13) Lumbar sprain (Acute) Hyperthyroidism (Acute) Hypertensive renal disease (Chronic 08/21/13) Hypertension (Acute) Creatinine elevation (Acute) Edema (Chronic 09/15/13) Type 2 diabetes mellitus, uncontrolled (Acute 08/21/13) Type 2 diabetes mellitus (Chronic) Stage III chronic kidney disease (Chronic 09/15/13) Atrial flutter (Acute) Past Surgical History (Last Reviewed 05/22/18 @ 13:38 by Ayanna Dela Cruz CMA) History of discectomy (Acute) History of arthroscopy of left shoulder (Chronic 04/16/15) History of lumbar discectomy (Chronic ~1986) Family History (Last Reviewed 05/22/18 @ 13:38 by Ayanna Dela Cruz CMA) Unknown Family history not obtainable due to adoption Medical history: Reports: atrial fibrillation, DM, hypertension, renal disease (On dialysis), thyroid disease, other (Wound at right foot followed by Dr. Cameron) Surgical history ED: Reports: orthopedic, other (Cervical spine, rotator cuff, toe amputations), vascular surgery, other (Fistula for renal dialysis) - Social History smoking status: Never smoker Alcohol use: Reports: None Drug use: Reports: none Physical Exam Right foot shows a lot of swelling in the fluctuance. Appears to be a large pus pocket in the anterior aspect of the foot that was previously amputated. Limitations: no limitations General appearance: alert Head: atraumatic Eye: Present: normal appearance ENT: normal exam Neck: Present: normal inspection Chest: Present: normal inspection Respiratory: Present: normal lung sounds bilaterally Cardiovascular: Present: regular rate, normal rhythm, normal heart sounds Abdominal: Present: soft. Absent: distention, tenderness Neurological: Present: alert Psychiatric: Present: normal affect Skin: Present: warm, dry Course Vital Signs Temperature 98.8 F 09/02/18 11:30 Pulse Rate 125 H 09/02/18 11:30 Respiratory Rate 16 09/02/18 11:30 Blood Pressure 141/75 09/02/18 11:30 Pulse Oximetry (%) 98 09/02/18 11:30 Temperature 98.8 F 09/02/18 11:30 Pulse Rate 125 H 09/02/18 11:30 Respiratory Rate 16 09/02/18 11:30 Blood Pressure 141/75 09/02/18 11:30 Pulse Oximetry (%) 98 09/02/18 11:30 Wound/Laceration - [facility] Narrative Medical decision making narrative: I discussed this patient with Dr. Echevarria the orthopedist mail distribution scheme examiner and he will take him to the operating room for an I&D. Disposition Pt seen by SENIOR SQL SERVER DBA/PA only: No Clinical Impression: Abscess Disposition: Xfer As Inpt ([facility]) Condition: Good Referrals: Wendy Tamayo ARNP [Primary Care Provider] - Time of Disposition: 12:38
[2018-09-02] MEDS ORDERED: HYDROmorphone 2 MG/ML VIAL IV PRN ×2 (12:05→14:21)
[2018-09-02 13:18] LABS: Basophils # (Auto) 0 K/mcL (0.0-0.3); Basophils % (Auto) 0.2 % (0.0-2.0); Eosinophils # (Auto) 0 K/mcL (0.0-0.7); Eosinophils % (Auto) 0.1 % (0.0-7.0); Granulocytes % (Auto) 90.6 % (38.0-78.0); Lymphocytes # (Auto) 0.5 K/mcL (1.5-4.8); Lymphocytes % (Auto) 3.5 % (15.5-49.0); Mean Cell Volume 102.1 fL (80.0-100.0); Mean Corpuscular HGB Conc 33.6 g/dL (31.0-36.0); Monocytes # (Auto) 0.9 K/mcL (0.1-0.9); Monocytes % (Auto) 5.6 % (1.0-12.0); Platelet Count 269 K/mcL (140-440); RBC 2.75 M/mcL (4.50-5.90); Red Cell Distribution Width 15.5 % (11.5-14.5)
[2018-09-02] MEDS ORDERED: PROPOFOL 200 MG/20 ML VIAL IV ONE (13:20)
[2018-09-02] MEDS ORDERED: MIDAZOLAM 5 MG/5 ML VIAL IV ONE (13:20)
[2018-09-02] MEDS ORDERED: VERAPAMIL 2.5 MG/ML VIAL IV ONE (13:20)
[2018-09-02] MEDS ORDERED: GENTAMICIN SULFATE 800 MG/20 ML VIAL IR ONE (13:24)
--- NOTE | 2018-09-02 13:50 | History and Physical Report ---
DATE OF ADMISSION: 09/02/2018 IDENTIFICATION: This is a 58-year-old male. CHIEF COMPLAINT: Right forefoot infection. HISTORY: This gentleman is a diabetic. He has chronic renal failure. He has had a long history of infection in this right forefoot. He had an amputation several years ago by Dr. Nishant Love and then had a wound that was treated for months by Dr. Cameron. He ultimately healed this wound and was doing reasonably well until yesterday when he developed acute increased redness and swelling on the right forefoot. He now presents to the hospital with complaints of fever and redness, swelling and pain. PAST MEDICAL HISTORY: Significant for diabetes, hypertension, renal failure, he is dialysis dependent. He has had chronic infections of this right forefoot. PAST SURGICAL HISTORY: He has had a right forefoot amputation. He has had multiple shunts. MEDICATIONS: Include insulin, thyroid, vitamin D, theophylline, allopurinol, simvastatin, calcitriol, Coumadin, losartan, amlodipine, gabapentin, torsemide, Reglan, Prilosec and Zofran. ALLERGIES: He lists beta blockers, which produce hypertension. REVIEW OF SYSTEMS: Generally, he has been healthy and this only started yesterday. He does again do dialysis weekly. PHYSICAL EXAMINATION: GENERAL: Shows, he is awake and alert. HEAD: Normocephalic, atraumatic. EYES: PERRLA. Conjunctivae clear. ENT: Within normal limits. NECK: His neck is supple without pain on range of motion. HEART: Regular. LUNGS: Clear. ABDOMEN: Benign. LOWER EXTREMITIES: Right lower extremity demonstrates a forefoot amputation. The plantar surface of the surgical wound is dorsally and there has been a plantar flap that has been brought up. The entire forefoot is swollen and there is increased redness. He has an area where the skin is thin and there is some dermal separation with a collection of fluid beneath the superficial dermis. There does appear to be an abscess, deep and it generally appears that the skin involving his forefoot is necrotic. He does have an area of cellulitis, which extends to above the ankle. IMPRESSION: Cellulitis and abscess in the location of the previous forefoot amputation. This gentleman reportedly has been febrile and he has extensive cellulitis, which has been fairly aggressive this started yesterday. Plan is to proceed with irrigation and debridement. We will simply open this wound, try and defervesce the abscess and this acute infection. He very well may require extending his amputation proximally. We discussed leaving the revision amputation to Dr. Nishant Love once it appears that the acute infection is under control. We have reviewed the procedure, the risks, complications, limitations and patient wishes to proceed. GDD:jon Job ID: [id number] Doc ID: [id number] Sage Echevarria MD
[2018-09-02 14:04] LABS: ALT/SGPT 13 U/l (0-40); Albumin/Globulin Ratio 0.7 (1.0-2.3); Alkaline Phosphatase 95 U/L (39-117); Blood Urea Nitrogen 28 mg/dl (6-20)
[2018-09-02] MEDS ORDERED: NALOXONE HCL 0.4 MG/ML VIAL IV PRN (14:21)
[2018-09-02] MEDS ORDERED: ALBUTEROL SULFATE 2.5 MG/3 ML NEBULIZER NEB PRN (14:21)
[2018-09-02] MEDS ORDERED: VANCOMYCIN PER PHARMACY IV SCH (14:21)
[2018-09-02] MEDS ORDERED: ACETAMINOPHEN 325 MG TABLET PO PRN (14:21)
[2018-09-02] MEDS ORDERED: DEXTROSE 50% 50 ML VIAL IV PRN (14:31)
[2018-09-02] MEDS ORDERED: DEXTROSE 31 GM ORAL.SUSP PO PRN (14:31)
--- NOTE | 2018-09-02 14:38 | Internal Med History&Physical ---
Medical - H&P: HPI Patient information: Note initiated : 09/02/18 at 2:36 pm Service Date, if different from initiated Date: [] Patient: Bart Pagan a 58 y/o M admitted on 09/02/18 for right foot wound. Chief Complaint: [] History of present illness: Mr. Pagan is a 58 year old M with history of diabetes, end-stage renal disease on dialysis, he was recently discharged from this facility where he was admitted for nausea vomiting. The patient notes that there was a small amount of ulceration or opening in his right lower extremity at that time, he continued to work since the time of her discharge. Yesterday noticed that there was significant swelling erythema on his right foot. He noted that he had low-grade temperatures as well as some chills. Given that he has had a nasty foot infection in the past decided to come in today for further evaluation, In the ER on presentation he was afebrile 98.8, heart rate 88 blood pressure 121/69 respirations 12 saturating 94% on 2 L. The wound showed opening and there was significant amount of pus coming out, there was cellulitis surrounding this wound. Dr. Echevarria orthopedic surgeon candle extrusion machine operator was consulted by the ER who took the patient to the surgery and drain the wound. The plan is to have Dr. Love evaluate the patient later for further revision surgeries as needed. Medicine was asked to admit the patient given extensive medical comorbidities. On my evaluation the patient noted that he also has been having some pain in his left knee, this has been there intermittently on and off for many weeks however for the last week or so has been quite worse. On my eval there was also some effusion in the left knee and the knee was tender to touch. Patient does have a history of gout. Review of systems: CONSTITUTIONAL: No weight loss, fever chills and fatigue present HEENT: Eyes: No visual loss, blurred vision, double vision or yellow sclerae. Ears, Nose, Throat: No hearing loss, sneezing, congestion, runny nose or sore throat. SKIN: No rash or itching. CARDIOVASCULAR: No chest pain, chest pressure or chest discomfort. No palpitations or edema. RESPIRATORY: No shortness of breath, cough or sputum. GASTROINTESTINAL: No nausea, vomiting or diarrhea or constipation. No abdominal pain or blood in stools No Meliza. [He did have nausea and vomiting during the last admission secondary to gastroparesis] GENITOURINARY: Denies Burning on urination. Blood in urine, or foul smelling urine NEUROLOGICAL: No headache, dizziness, syncope, paralysis, tremors, numbness or tingling in the extremities. No change in bowel or bladder control. MUSCULOSKELETAL: No muscle, he does admit to back pain which he attributes to change in posture due to his knee pain. HEMATOLOGIC: No bleeding or bruising. No enlarged nodes PSYCHIATRIC: No depression or anxiety. ENDOCRINOLOGIC: No reports of sweating, cold or heat intolerance. No polyuria or polydipsia. ALLERGIES: No hives, eczema or rhinitis. Skin: No rash, no jaundice, cyanosis or pallor. Medical - H&P: [facility] Medical history: Medical History (Last Reviewed 05/22/18 @ 13:38 by Ayanna Dela Cruz [facility]) Gouty arthropathy with tophi (Acute) Encounter for long-term (current) use of high-risk medication (Acute) Gout (Acute) Hand joint stiff (Acute) Polyarthralgia (Chronic) Inflammatory arthropathy (Suspected) Cough (Chronic) Vision problems (Chronic) Hand pain (Chronic) Thoracic back pain (Chronic) Spinal stenosis of thoracic region (Chronic) Cervical radiculopathy (Chronic) Spinal stenosis in cervical region (Chronic) Knee joint pain (Chronic) Elbow joint pain (Chronic) Atrial fibrillation (Chronic) Essential hypertension (Chronic) Anemia (Chronic) Vitamin D deficiency (Chronic) Diabetic foot ulcer (Chronic) 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) Diabetes mellitus (Chronic) Hypothyroidism (Chronic) Musculoskeletal pain (Chronic) Chronic kidney disease, stage IV (severe) (Chronic) Elevated erythrocyte sedimentation rate (Chronic) Hyperparathyroidism due to renal insufficiency (Chronic) Proteinuria (Chronic) Secondary hyperparathyroidism of renal origin (Chronic) Chronic kidney disease, stage IV (severe) (Chronic) Hyperuricemia (Chronic) Ulcer of foot (Acute) Secondary hyperparathyroidism (Chronic 09/15/13) Acidosis, renal tubular (Acute 08/21/13) Lumbar sprain (Acute) Hyperthyroidism (Acute) Hypertensive renal disease (Chronic 08/21/13) Hypertension (Acute) Creatinine elevation (Acute) Edema (Chronic 09/15/13) Type 2 diabetes mellitus, uncontrolled (Acute 08/21/13) Type 2 diabetes mellitus (Chronic) Stage III chronic kidney disease (Chronic 09/15/13) Atrial flutter (Acute) Surgical history: Past Surgical History (Last Reviewed 05/22/18 @ 13:38 by Ayanna Dela Cruz CMA) History of discectomy (Acute) History of arthroscopy of left shoulder (Chronic 04/16/15) History of lumbar discectomy (Chronic ~1986) Pertinent family history: Family History (Last Reviewed 05/22/18 @ 13:38 by Ayanna Dela Cruz CMA) Unknown Family history not obtainable due to adoption Medical - H&P: Meds Home Medications Medication Instructions Recorded Confirmed Type insulin detemir (U-100) 100 80 unit SUB-Q BID ml 01/15/16 08/23/18 History unit/mL (3 mL) subcutaneous pen levothyroxine 150 mcg capsule 300 mcg PO ACB 05/27/16 08/23/18 History insulin aspart U- 100 100 unit/mL 15 unit SUB-Q QPMAC ml 01/02/17 08/23/18 History subcutaneous pen ergocalciferol (vitamin D2) 50,000 50,000 unit PO ORTIZ cap 03/24/17 08/23/18 History unit capsule Accu-Chek 1 each FS ACHS strip 05/01/17 08/23/18 Rx Acetaminophen [Tylenol] 650 mg PO Q4-6HP PRN tab 05/01/17 08/23/18 Rx theophylline ER 400 mg 200 mg PO BID #14 tab 05/29/17 08/23/18 Rx tablet,extended release 24 hr sucroferric oxyhydroxide 500 mg 500 mg PO TID #90 tab 02/07/18 08/23/18 Rx chewable tablet allopurinol 100 mg tablet 100 mg PO QDAY #30 tab 05/22/18 08/23/18 Rx atorvastatin 40 mg tablet 40 mg PO QDAY 06/07/18 08/23/18 History calcitriol 0.5 mcg capsule 0.5 mcg PO MOWEFR cap 06/07/18 08/23/18 History sevelamer HCl 800 mg tablet 1,600 mg PO TID tab 06/07/18 08/23/18 History warfarin 5 mg tablet 10 mg PO SUTUTHSA 06/07/18 08/23/18 History losartan 50 mg tablet 50 mg PO QDAY #30 tab 07/02/18 08/23/18 Rx amlodipine 10 mg tablet 10 mg PO QDAY #90 tab 08/20/18 08/23/18 Rx gabapentin 300 mg capsule 300 mg PO QDAY 30 Days #30 cap 08/20/18 08/23/18 Rx torsemide 20 mg tablet 40 mg PO QDAY #180 tab 08/20/18 08/23/18 Rx Warfarin [Coumadin] 15 mg PO MOWEFR 08/23/18 08/23/18 History Metoclopramide [Reglan] 5 mg PO Q6HP PRN #20 tab 08/26/18 Rx Omeprazole [PriLOSEC] 20 mg PO ACB #20 cap 08/26/18 Rx Ondansetron [Zofran ODT] 4 mg SL Q6HP PRN #20 tab 08/26/18 Rx Allergies Allergy/AdvReac Type Severity Reaction Status Date / Time Beta-Blockers AdvReac Mild Hypotension Verified 08/23/18 08:54 (Beta-Adrenergic Bloc Medical - H&P: Exam - Constitutional Vitals: Temp Pulse Resp BP Pulse Ox 98.8 F 90 12 121/69 94 09/02/18 13:52 09/02/18 13:52 09/02/18 13:52 09/02/18 13:52 09/02/18 13:52 Exam: GENERAL: The patient is a well-developed, well-nourished in no apparent distress. Is alert and oriented x3. VITAL SIGNS: Reviewed and as noted elsewhere. HEENT: Head is normocephalic and atraumatic. Extraocular muscles are intact. Pupils are equal, round, and reactive to light. Nares appeared normal. Mouth appears any without lesions. Mucous membranes are moist. NECK: Normal to inspection, Supple, No lymphadenopathy or thyromegaly. LUNGS: Air entry equal on both sides, no wheezing, crackles or rhonchi noted. No accessory muscles of respiration HEART: Regular rate and rhythm irregular , S1 and S2 heard, no Gallop, S3 or Rub Noted, No Gross murmur heard. ABDOMEN: Soft, nontender, and nondistended. Positive bowel sounds. No hepatosplenomegaly was noted. EXTREMITIES: No cyanosis, clubbing, rash, lesions or edema. right lower extremity in dressing. NEUROLOGIC: Cranial nerves II through XII are grossly intact. Motor and Sensory System Grossly Intact PSYCHIATRIC: Normal affect, Normal Mood. Appropriate Behavior. SKIN: No ulceration or wounds noted, No jaundice, No rash noted. Medical - H&P: Reslt - Labs CBC & Chem 7: 09/02/18 12:39 09/02/18 12:39 Labs: Short CBC 09/02/18 Range/Units 12:39 WBC 15.8 H (4.5-11.0) K/mcL Hgb 9.4 L (13.5-16.5) g/dL Hct 28.1 L (41.0-55.0) % Plt Count 269 (140-440) K/mcL BMP 09/02/18 12:39 Sodium 130 L Potassium 4.1 Chloride 89 L Carbon Dioxide 26 BUN 28 H Creatinine 4.2 H Glucose 174 H Calcium 8.3 L Liver Function 09/02/18 Range/Units 12:39 Total Bilirubin 0.8 (0.0-1.0) mg/dL AST 25 (0-37) U/l ALT 13 (0-40) U/l Alkaline Phosphatase 95 (39-117) U/L Albumin 3.0 L (3.2-5.2) gm/dL Medical - H&P: A/P - Narrative A/P Narrative: A/P Cellulitis with Osteomyelitis , Right foot ESRD on HD DM HTN HLD Gout Knee pain Diabetic Gastroparesis Atrial fibrillatino Hypothyroidsim Plan Admit to med surg as inpt s/p incision and drainage of wound, cultures sent Nephrology and Infectious disease consult Dr Love will likely follow up, decide need for further intervention. Aspirate the left knee, send for cultures, crystals and cell count, continue home meds once verified HD likely tomorrow as per regular schedule, no need for urgent HD at this time, CXR pending DVT on coumadin Full code Carb consistent/ renal diet. Social History - Social History adopted: Yes household members: alone marital status: single education level: college service: Yes occupational status: unemployed, employed sexually active: No - Exercise frequency: 1-2 times per week - Tobacco smoking status: Never smoker - Alcohol alcohol intake frequency: a few times a month - Substance use substance use type: does not use - Home Safety working smoke detector in home: Yes firearms in home: No
[2018-09-02] MEDS ORDERED: WARFARIN 10 MG TABLET PO ONE (16:00)
--- NOTE | 2018-09-02 16:25 | Procedure Note ---
Procedures - Joint Aspiration/Injection Joint Aspiration/Injection 1 Consent obtained: verbal consent, written consent (procedure done after after verbal, written consent signed post procedure on file. ) Date of Procedure: 09/02/18 Time out performed: Yes Side of body: left Joint aspirated: knee Ultrasound guidance: Yes Skin prep: Chlorhexidine Needle size used: 18G Fluid obtained: viscous Total fluid obtained (mLs): 15 Patient tolerated procedure: well, no complications Complications: none
[2018-09-02] MEDS: oxyCODONE HCL 5 MG TABLET PO PRN (16:53)
[2018-09-02] MEDS: PIPERACILLIN SODIUM/TAZOBACTAM 2.25 GM in DEXTROSE 5% IN WATER 50 ML IV SCH (16:53)
--- NOTE | 2018-09-02 17:26 | XRay Report ---
CLINICAL INFORMATION: fever COMPARISON: 08/23/2018 FINDINGS: Heart size, mediastinum and pulmonary vessels are normal. There is mild wall thickening of the central bronchi and elevated lung volumes suggesting bronchitis or asthma. Minor right basilar atelectasis noted. No effusions IMPRESSION: Findings suggestive of bronchitis with right basilar atelectasis Interpreted and Authenticated by: Nakul Huynh 09/02/18
[2018-09-02 18:29] LABS: Appearance,Synovial Fluid CLEAR; Color,Synovial Fluid YELLOW
[2018-09-02] MEDS: INSULIN LISPRO 1 UNIT/0.01 ML UNIT SQ SCH ×2 (18:30→21:09)
[2018-09-02 19:01] LABS: Lymphocytes,Synovial Fluid 11 %; Neutrophils,Synovial Fluid 79 % (0-25); Other Cells,Synovial Fluid 10 %
[2018-09-02] MEDS: 0.9 % SODIUM CHLORIDE 10 ML SYRINGE IV SCH (21:06)
[2018-09-03] MEDS: PIPERACILLIN SODIUM/TAZOBACTAM 2.25 GM in DEXTROSE 5% IN WATER 50 ML IV SCH ×2 (00:11→10:33)
[2018-09-03] MEDS: oxyCODONE HCL 5 MG TABLET PO PRN ×4 (00:12→14:50)
[2018-09-03] MEDS: 0.9 % SODIUM CHLORIDE 10 ML SYRINGE IV SCH ×3 (04:13→21:37)
[2018-09-03 06:10] LABS: ALT/SGPT 16 U/l (0-40); Albumin 2.7 gm/dL (3.2-5.2); Albumin/Globulin Ratio 0.8 (1.0-2.3); Alkaline Phosphatase 79 U/L (39-117); Basophils # (Auto) 0 K/mcL (0.0-0.3); Basophils % (Auto) 0.4 % (0.0-2.0); Bilirubin,Direct < 0.2 mg/dL (0.0-0.3); Blood Urea Nitrogen 35 mg/dl (6-20); Eosinophils # (Auto) 0.1 K/mcL (0.0-0.7); Gamma Glutamyl Transpeptidase 19 U/L (8-61); Granulocytes % (Auto) 82.5 % (38.0-78.0); Lymphocytes # (Auto) 1.1 K/mcL (1.5-4.8); Mean Cell Volume 101.7 fL (80.0-100.0); Monocytes # (Auto) 0.6 K/mcL (0.1-0.9); Monocytes % (Auto) 6.1 % (1.0-12.0); Platelet Count 249 K/mcL (140-440); RBC 2.55 M/mcL (4.50-5.90); Red Cell Distribution Width 15.6 % (11.5-14.5); Uric Acid 5.1 mg/dL (2.5-8.0); Vancomycin,Random 16.5 ug/mL
--- NOTE | 2018-09-03 07:17 | Orthopedic Progress Note ---
Subjective Patient information: Note initiated : 09/03/18 at 7:15 am Service Date, if different from initiated Date: [] Patient: Bart Pagan 58 y/o M admitted on 09/02/18 for right foot wound. Chief Complaint: [S/P Irrigation and debridement of right diabetic foot wound] Patient is doing well with no particular complaints. He has remained at bed rest since his surgery yesterday. He denies any fever, chills, or increased pain in t he right lower extremity. Objective Vital signs: Vital Signs Temp Pulse Pulse Resp BP BP Pulse Ox 09/03/18 06:55 97.9 F 85 16 130/72 92 09/03/18 04:00 97.8 F 82 18 124/76 92 09/03/18 00:00 97.8 F 82 18 128/74 93 09/02/18 20:30 98.5 F 94 H 18 112/70 97 09/02/18 20:00 100.2 F H 98 H 16 124/74 94 09/02/18 19:51 20 95 09/02/18 16:50 113/71 95 09/02/18 16:00 97.3 F 20 119/72 96 09/02/18 15:50 115/73 95 09/02/18 15:20 122/74 95 09/02/18 15:00 97 09/02/18 14:50 118/72 95 09/02/18 14:35 120/68 94 09/02/18 14:20 124/74 95 09/02/18 14:05 121/70 96 09/02/18 13:52 98.8 F 90 12 121/69 94 09/02/18 13:47 88 12 110/67 93 09/02/18 13:42 91 H 12 104/66 96 09/02/18 13:37 98.8 F 88 12 108/54 94 09/02/18 12:57 98.8 F 125 H 16 141/75 98 09/02/18 12:43 133/67 09/02/18 11:30 98.8 F 125 H 16 141/75 98 Intake and Output 09/02/18 09/03/18 09/03/18 21:59 05:59 13:59 Intake Total 290 / 550 240 / 550 Output Total 100 / 200 100 / 200 Balance 190 / 350 140 / 350 Intake: IV 50 / 50 Zosyn 2.25 gm In Dextrose 5% in 50 / 50 Water 50 ml @ 100 mls/hr IV Q12H [facility] Rx#:[id number] Oral 240 / 480 240 / 480 Output: Void Amount 100 / 200 100 / 200 Other: Meal Dinner Percent of Meal Consumed 100% Feeding Ability Independent Urine Appearance Clear Urine Color Straw Urine Odor Normal # Bowel Movements 1 Weight 222 lb 8 oz Intake & Output: Intake & Output 09/02/18 09/03/18 09/03/18 21:59 05:59 13:59 Intake Total 290 / 550 240 / 550 Output Total 100 / 200 100 / 200 Balance 190 / 350 140 / 350 Weight 222 lb 8 oz Intake: IV 50 / 50 Zosyn 2.25 gm In Dextrose 5% in 50 / 50 Water 50 ml @ 100 mls/hr IV Q12H [facility] Rx#:[id number] Oral 240 / 480 240 / 480 Output: Void Amount 100 / 200 100 / 200 Other: Meal Dinner Percent of Meal Consumed 100% Feeding Ability Independent Urine Appearance Clear Urine Color Straw Urine Odor Normal # Bowel Movements 1 Incision: Yes clean and dry Incision clean and dry: Yes Dressing: Yes clean, Yes dry, Yes intact Weight bearing status: as tolerated Neurological exam IM: Yes oriented X3, Yes motor sensory intact, Yes neurovascular intact Extremities exam IM: Yes neurovascular intact - Labs CBC & BMP: 09/03/18 04:50 09/03/18 04:50 Labs: Orthopedic Labs 09/03/18 09/02/18 04:50 13:29 PT Pending 21.5 H INR Pending 1.9 H 09/03/18 09/02/18 04:50 12:39 Hgb 8.6 L 9.4 L Hct 26.0 L 28.1 L Assessment and Plan (1) Foot infection Consult Dr. Murray for local wound care recommendations. Continue empiric IV abx until cultures results return. Blood culture shows gram positive cocci and other cultures are pending. We will likely obtain MRI of the right foot at some point to further define the extent of the infection, and he will likely require a revision amputation with Dr. Love. Status: Acute Priority: High Comment: For LOCAL WOUND CARE. OK to proceed with treatment of chronic kidney disease and start HD after insertion of dialysis catheter. Current wound management to continue. WIll follow patient from Wound Care point of view. He understands and agrees. HBO on HOLD today and until further notice. Spoke with Dr. Garcia and Wound Care HBO team.
[2018-09-03] MEDS: INSULIN LISPRO 1 UNIT/0.01 ML UNIT SQ SCH ×4 (07:42→21:15)
--- NOTE | 2018-09-03 07:54 | Operative Note ---
DATE OF OPERATION: 09/02/2018 EDITED PREOPERATIVE DIAGNOSIS: Diabetic foot infection with cellulitis and abscess in the right forefoot. This is in the region of a previous amputation. POSTOPERATIVE DIAGNOSIS: Diabetic foot infection with cellulitis and abscess in the right forefoot. OPERATION PROPOSED: Irrigation and debridement of forefoot abscess and diabetic right foot ulcer. OPERATION PERFORMED: Irrigation and debridement of forefoot abscess and diabetic right foot ulcer. OPERATING SURGEON: Burton Echevarria MD INDICATION: This is a 58-year-old gentleman who has had a previous forefoot amputation. He has developed a fairly aggressive-appearing abscess and with proximal cellulitis and fever we have elected to proceed with irrigation and debridement in attempt to get control of the infection and then we will evaluate for further amputation versus definitive closure. OPERATION IN DETAIL: Informed consent was obtained. The patient was taken to the operating room. He had a previous scar dorsally from his amputation. I opened the surgical incision and spread down into the forefoot wound, which was again the stump of a transmetatarsal amputation. There were copious amounts of pus that welled up. I curetted this capsule that extended down to the metatarsals. I did take two deep cultures. I sharply debrided necrotic skin tissue. I extensively pulse lavaged and soaked the wound in IrriSept and then packed the wound with a sponge. A sterile dressing was applied. The patient left the operating room in excellent condition, no complications of the procedure. Edited per Sage Echevarria MD, via hard copy 09/18/18 avinash GDD:milan Job ID: [id number] Doc ID: [id number] Sage Echevarria MD
--- NOTE | 2018-09-03 13:39 | Internal Med Progress Note ---
Medical - PN: Subj Patient information: Note initiated : 09/03/18 at 1:24 pm Service Date, if different from initiated Date: [] Patient: Bart Pagan a 58 y/o M admitted on 09/02/18 for right foot wound. Chief Complaint: [] Interval history: Mr. Pagna is a 58 year old M with history of diabetes, end-stage renal disease on dialysis, he was recently discharged from this facility where he was admitted for nausea vomiting. The patient notes that there was a small amount of ulceration or opening in his right lower extremity at that time, he continued to work since the time of her discharge. Yesterday noticed that there was significant swelling erythema on his right foot. He noted that he had low-grade temperatures as well as some chills. Given that he has had a nasty foot infection in the past decided to come in today for further evaluation, In the ER on presentation he was afebrile 98.8, heart rate 88 blood pressure 121/69 respirations 12 saturating 94% on 2 L. The wound showed opening and there was significant amount of pus coming out, there was cellulitis surrounding this wound. Dr. Echevarria orthopedic surgeon director of elementary education was consulted by the ER who took the patient to the surgery and drain the wound. The plan is to have Dr. Love evaluate the patient later for further revision surgeries as needed. Medicine was asked to admit the patient given extensive medical comorbidities. On my evaluation the patient noted that he also has been having some pain in his left knee, this has been there intermittently on and off for many weeks however for the last week or so has been quite worse. On my eval there was also some effusion in the left knee and the knee was tender to touch. Patient does have a history of gout. 09/03 Patient seen and examined, no acute overnight events no complaints or concerns. The left knee is still bothering him. We tapped the knee yesterday it is negative for any inflammation or acute infection most likely osteoarthritis related pain. Plan for steroid injection today. Blood cultures are positive, echocardiogram ordered. Wound care and infectious disease nephrology and orthopedics are following the patient. Blood cultures and wound cultures are emesis staph. Vancomycin and Zosyn has been discontinued patient has been started on Ancef Pertinent ROS: Denies headache, dizziness Denies chest pain, palpitations Denies cough or shortness of breath Denies abdominal pain, nausea or vomiting. left knee pain - Constitutional Vitals: Vital Signs Temp Pulse Resp BP Pulse Ox 97.2 F 82 18 132/70 93 09/03/18 11:38 09/03/18 11:38 09/03/18 11:38 09/03/18 11:38 09/03/18 11:38 Period Temp Pulse Resp BP Sys/Mancini Pulse Ox Last 24 Hr 97.2 F-100.2 F 82-98 12-20 104-132/54-76 92-97 Intake and Output 09/02/18 09/03/18 09/03/18 21:59 05:59 13:59 Intake Total 290 / 550 240 / 550 Output Total 100 / 200 100 / 200 Balance 190 / 350 140 / 350 Weight 222 lb 8 oz Intake & Output: Intake & Output 09/02/18 09/03/18 09/03/18 21:59 05:59 13:59 Intake Total 290 / 550 240 / 550 Output Total 100 / 200 100 / 200 Balance 190 / 350 140 / 350 Weight 222 lb 8 oz Intake: IV 50 / 50 Zosyn 2.25 gm In Dextrose 5% in 50 / 50 Water 50 ml @ 100 mls/hr IV Q12H [facility] Rx#:[id number] Oral 240 / 480 240 / 480 Output: Void Amount 100 / 200 100 / 200 Other: Meal Dinner Percent of Meal Consumed 100% Feeding Ability Independent Urine Appearance Clear Urine Color Straw Urine Odor Normal # Bowel Movements 1 Exam: Constitutional; Afebrile, cooperative, alert, not in distress. Respiratory system: Air Entry equal on both sides, No crackles or wheezing, no rhonchi. CVS- Rate rhythm regular, S1,S2 heard, no gallop, no rub. Abdomen- Soft nontender abdomen, no organomegaly, no tenderness, no guarding or rigidity, [employer] TE[employer]OLOG[employer] DEVELOPMENT MANAGER- AOOx3, moving all extremities, no gross focal deficit noted. left knee effusion and tenderness present Right leg has packed wound, and cellulitis. Medical - PN: Obj Da - Labs CBC & Chem 7: 09/03/18 04:50 09/03/18 04:50 Labs: Abnormal Lab Results 09/03/18 09/03/18 09/03/18 04:50 04:50 04:50 WBC RBC 2.55 L Hgb 8.6 L Hct 26.0 L MCV 101.7 H MCH RDW 15.6 H Gran % 82.5 H Lymph % (Auto) 10.0 L Gran # 8.7 H Lymph # (Auto) 1.1 L PT 26.4 H INR 2.5 H Sodium 132 L Chloride 91 L BUN 35 H Creatinine 4.6 H Glucose 110 H Calcium 8.1 L Albumin 2.7 L Globulin Albumin/Globulin Ratio 0.8 L Synovial Neutrophils 09/02/18 09/02/18 09/02/18 16:23 13:29 12:39 WBC RBC Hgb Hct MCV MCH RDW Gran % Lymph % (Auto) Gran # Lymph # (Auto) PT 21.5 H INR 1.9 H Sodium 130 L Chloride 89 L BUN 28 H Creatinine 4.2 H Glucose 174 H Calcium 8.3 L Albumin 3.0 L Globulin 4.1 H Albumin/Globulin Ratio 0.7 L Synovial Neutrophils 79 H 09/02/18 12:39 WBC 15.8 H RBC 2.75 L Hgb 9.4 L Hct 28.1 L MCV 102.1 H MCH 34.3 H RDW 15.5 H Gran % 90.6 H Lymph % (Auto) 3.5 L Gran # 14.3 H Lymph # (Auto) 0.5 L PT INR Sodium Chloride BUN Creatinine Glucose Calcium Albumin Globulin Albumin/Globulin Ratio Synovial Neutrophils Meds: Medications Acetaminophen (Tylenol) 650 mg PO Q6HP PRN PRN Reason: PAIN/FEVER > 101 Albuterol Sulfate (Ventolin) 2.5 mg NEB Q2HP PRN PRN Reason: Shortness Of Breath Cefazolin Sodium (Ancef) 2 gm IV MoWe@1800 [facility] Cefazolin Sodium (Ancef) 3 gm IV Fr@1800 [facility] Dextrose (Dextrose 50%) 0 ml IV UD PRN PRN Reason: Hypoglycemia Diagnostic Test (Pha) (Accu-Chek) 1 each FS [facility] Last Admin: 09/03/18 11:43 Dose: 1 each Documented by: Glucose (Insta-Glucose) 15 gm PO PRN PRN PRN Reason: Hypoglycemia Hydromorphone HCl (Dilaudid) 0.5 mg IV Q2HP PRN PRN Reason: PAIN LEVEL > 6 Insulin Human Lispro (Humalog) 0 unit SQ [facility]; Protocol Last Admin: 09/03/18 07:42 Dose: Not Given Documented by: Naloxone HCl (Narcan) 0.1 mg IV Q2MIN PRN PRN Reason: Opiate Reversal Oxycodone HCl (Roxicodone) 5 mg PO Q4HP PRN PRN Reason: PAIN LEVEL 3-6 Last Admin: 09/03/18 10:32 Dose: 5 mg Documented by: Sodium Chloride (Saline Flush) 10 ml IV Q8 [facility] Last Admin: 09/03/18 04:13 Dose: 10 ml Documented by: Warfarin Sodium (Coumadin Per Pharmacy) 1 order PO UD [facility] Warfarin Sodium (Coumadin) 5 mg PO ONCE@1400 ONE Stop: 09/03/18 14:01 Medical - PN: A/P - Time Spent With Patient Total time spent is greater than 50% in coordination of care (as documented) at patient's floor/unit and/or counseling patient: - Narrative A/P Narrative: A/P Cellulitis with Osteomyelitis , Right foot ESRD on HD DM HTN HLD Gout Knee pain, left Diabetic Gastroparesis Atrial fibrillation Hypothyroidsim Plan s/p incision and drainage of wound, cultures sent, mssa staph noted on iv anceph now. Nephrology and Infectious disease consult and wound care consulting. Dr Kate alvarez will likely follow up, decide need for further intervention. Aspirate the left knee, sent for cell count, neg for any infection, steroid injectino today continue home meds once verified HD today. DVT on coumadin Full code Carb consistent/ renal diet. Medical - PN: Qual - VTE Deep Vein Thrombosis/Pulmonary Embolism Present on Admission: No
[2018-09-03] MEDS ORDERED: WARFARIN 5 MG TABLET PO ONE (14:00)
[2018-09-03] MEDS ORDERED: VANCOMYCIN 1,500 MG in 0.9 % SODIUM CHLORIDE 500 ML IV ONE (16:00)
--- NOTE | 2018-09-03 17:04 | Infectious Disease Consult ---
History of Present Illness Patient information: Note initiated : 09/03/18 at 4:57 pm Service Date, if different from initiated Date: [] Patient: Bart Pagan 58 y/o M admitted on 09/02/18 for right foot wound. Chief Complaint: [] Consult date: 09/03/18 Requesting Physician: Izabela Gray Reason for Consult: Staph aureus bacteremia Chief complaint: My foot hurts History of present illness: 58 year old man with past medical history pertinent for: Type 2 diabetes with neuropathy End-stage renal disease on hemodialysis through right arm AV fistula Right foot TMA in 2017 For last 1 week or so patient reports having superficial ulcers around the right TMA stump. Patient has been on his foot despite that and yesterday [0 09/01], patient noticed that his foot had swollen significantly with redness and pus drainage from it. Given his previous experience with foot infections, he lately came to the ER for further evaluation. In the ER, temp was 98.8, heart rate 88 blood pressure 121/69 respirations 12 saturating 94% on 2 L. On physical exam there was significant amount of pus coming out from the foot wound with the surrounding changes of cellulitis. Patient underwent emergent incision and debridement by Dr. Echevarria. Operative cultures were sent, blood cultures were sent and patient was started on IV vancomycin and IV Zosyn. Patient's blood cultures came out to be positive for GPC in clusters on 09/03/18 with mec A gene negative and positive for staph aureus. At the time of my visit, patient confirmed the above history. He denied any fever, chills, nausea, vomiting, diarrhea. He was switched to IV cefazolin in the afternoon. Review of Systems All systems PM: reviewed and no additional remarkable complaints except as stated Past History Past medical history: mentioned in HPI Past family history: not pertinent to current presentation Medications and Allergies Home Medications Medication Instructions Recorded Confirmed Type insulin detemir (U-100) 100 60 unit SUB-Q HS ml 01/15/16 09/02/18 History unit/mL (3 mL) subcutaneous pen levothyroxine 150 mcg capsule 300 mcg PO ACB 05/27/16 09/02/18 History insulin aspart U- 100 100 unit/mL 15 unit SUB-Q QPMAC ml 01/02/17 09/02/18 History subcutaneous pen ergocalciferol (vitamin D2) 50,000 50,000 unit PO ORTIZ cap 03/24/17 09/02/18 History unit capsule Accu-Chek 1 each FS ACHS strip 05/01/17 09/02/18 Rx Acetaminophen [Tylenol] 650 mg PO Q4-6HP PRN tab 05/01/17 09/02/18 Rx allopurinol 100 mg tablet 100 mg PO QDAY #30 tab 05/22/18 09/02/18 Rx atorvastatin 40 mg tablet 40 mg PO QDAY 06/07/18 09/02/18 History calcitriol 0.5 mcg capsule 0.5 mcg PO MOWEFR cap 06/07/18 09/02/18 History sevelamer HCl 800 mg tablet 1,600 mg PO TID tab 06/07/18 09/02/18 History warfarin 5 mg tablet 10 mg PO SUTUTHSA 06/07/18 09/02/18 History losartan 50 mg tablet 50 mg PO QDAY #30 tab 07/02/18 09/02/18 Rx amlodipine 10 mg tablet 10 mg PO QDAY #90 tab 08/20/18 09/02/18 Rx gabapentin 300 mg capsule 300 mg PO QDAY 30 Days #30 cap 08/20/18 09/02/18 Rx torsemide 20 mg tablet 40 mg PO QDAY #180 tab 08/20/18 09/02/18 Rx Warfarin [Coumadin] 15 mg PO MOWEFR 08/23/18 09/02/18 History Omeprazole [PriLOSEC] 20 mg PO ACB #20 cap 08/26/18 09/02/18 Rx Ondansetron [Zofran ODT] 4 mg SL Q6HP PRN #20 tab 08/26/18 09/02/18 Rx Insulin Glargine,Hum.rec.anlog 60 unit SQ DAILY 09/02/18 09/02/18 History [Basaglar Kwikpen U-100] Metoclopramide [Reglan] 5 mg PO AC 09/02/18 09/02/18 History Allergies Allergy/AdvReac Type Severity Reaction Status Date / Time Beta-Blockers AdvReac Mild Hypotension Verified 08/23/18 08:54 (Beta-Adrenergic Bloc Physical Examination Vital signs: Temp Pulse Resp BP Pulse Ox 36.4 C 80 16 119/79 92 09/03/18 16:00 09/03/18 16:50 09/03/18 16:00 09/03/18 16:50 09/03/18 16:00 General appearance: no acute distress Eyes pulmonary: nonicteric Auscultation: bilateral: clear Cardiovascular: other Gastrointestinal: normoactive bowel sounds Extremities: no edema Results - Laboratory Findings CBC and BMP: 09/03/18 04:50 09/03/18 04:50 PT/INR, D-dimer PT 26.4 sec (11.9-14.5) H 09/03/18 04:50 INR 2.5 (0.9-1.1) H 09/03/18 04:50 Abnormal lab findings: Abnormal Labs 09/02/18 09/02/18 09/02/18 12:39 12:39 13:29 WBC 15.8 H RBC 2.75 L Hgb 9.4 L Hct 28.1 L MCV 102.1 H MCH 34.3 H RDW 15.5 H Gran % 90.6 H Lymph % (Auto) 3.5 L Gran # 14.3 H Lymph # (Auto) 0.5 L PT 21.5 H INR 1.9 H Sodium 130 L Chloride 89 L BUN 28 H Creatinine 4.2 H Glucose 174 H Calcium 8.3 L Albumin 3.0 L Globulin 4.1 H Albumin/Globulin Ratio 0.7 L Synovial Neutrophils 09/02/18 09/03/18 09/03/18 16:23 04:50 04:50 WBC RBC 2.55 L Hgb 8.6 L Hct 26.0 L MCV 101.7 H MCH RDW 15.6 H Gran % 82.5 H Lymph % (Auto) 10.0 L Gran # 8.7 H Lymph # (Auto) 1.1 L PT INR Sodium 132 L Chloride 91 L BUN 35 H Creatinine 4.6 H Glucose 110 H Calcium 8.1 L Albumin 2.7 L Globulin Albumin/Globulin Ratio 0.8 L Synovial Neutrophils 79 H 09/03/18 04:50 WBC RBC Hgb Hct MCV MCH RDW Gran % Lymph % (Auto) Gran # Lymph # (Auto) PT 26.4 H INR 2.5 H Sodium Chloride BUN Creatinine Glucose Calcium Albumin Globulin Albumin/Globulin Ratio Synovial Neutrophils Microbiology: Microbiology 09/02/18 13:48 Wound - Not Given Gram Stain - Final 09/02/18 13:48 Wound - Not Given Gram Stain - Final 09/02/18 13:48 Wound - Not Given Anaerobic Culture - Preliminary 09/02/18 13:48 Wound - Not Given Gram Stain - Final 09/02/18 13:48 Wound - Not Given Wound Culture - Preliminary Staphylococcus aureus 09/02/18 13:48 Wound - Not Given Gram Stain - Final 09/02/18 13:48 Wound - Not Given Gram Stain - Final 09/02/18 13:48 Wound - Not Given Anaerobic Culture - Preliminary 09/02/18 13:48 Wound - Not Given Gram Stain - Final 09/02/18 13:48 Wound - Not Given Wound Culture - Preliminary Staphylococcus aureus 09/02/18 16:23 Synovial Fluid Gram Stain - Final 09/02/18 16:23 Synovial Fluid Body Fluid Culture - Preliminary 09/02/18 12:39 Blood Blood Culture - Preliminary Gram positive cocci 09/02/18 12:50 Blood Blood Culture - Preliminary Gram positive cocci Assessment and Plan - Narrative A/P Narrative: A: 1. MSSA bacteremia with MSSA Rt foot osteomyelitis: s/p surgical debridement with op Cx confirming growth of Staph aureus - TTE neg for IE 2. DM2 3. ESRD on HD through Rt arm AVF Recommendations: - Continue IV Cefazolin 2 gm after HD session on Monday, 2 gm after HD session on Monday and 3 gm after HD session on Monday - Repeat blood Cx to document clearance of bacteremia - Pt would need at least 4 weeks of antibiotic therapy without definitive surgery. As pt needs to f/u with Dr Love for possibility of further surgical debridement (BKA), an outpt MRI could be considered to evaluate for extent of osteomyelitis. 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
--- NOTE | 2018-09-03 17:27 | General Surgery Consult Note ---
History of Present Illness Patient information: Note initiated : 09/03/18 at 5:16 pm Service Date, if different from initiated Date: [] Patient: Bart Pagan 58 y/o M admitted on 09/02/18 for right foot wound. Chief Complaint: [] Consult date: 09/03/18 Requesting physician: Izabela Gray (Wound Care Rt. Foot) History of present illness: I saw this patient in the morning along with Brigitte [facility] care attorney and reassessed him again while he was undergoing hemodialysis. 58 / M well known to me from before and last seen in wound care center a week ago. He was emergently admitted with infected RIGHT foot transmetatarsal amputation and pus coming out from the scar. This was an interval change. 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 Patient underwent Excisional Debridement and started on IV antibiotics by the Dr. Echevarria, Orthopedic Surgeon yesterday. Subsequently seen by Dr. Bustos, ID and antibiotic adjusted. Post surgical wound was examined and packing discontinued. Currently, there is no residual purulence at the wound site and acute inflammatory changes are abating / resolving. Patient is very concerned about the recurring nature of these infections. He tells me that he would like to get a BKA amputation and get on with his life and ADLs. He has a dog at his home. He is non smoker and non alcoholic. Medications and Allergies Home Medications Medication Instructions Recorded Confirmed Type insulin detemir (U-100) 100 60 unit SUB-Q HS ml 01/15/16 09/02/18 History unit/mL (3 mL) subcutaneous pen levothyroxine 150 mcg capsule 300 mcg PO ACB 05/27/16 09/02/18 History insulin aspart U- 100 100 unit/mL 15 unit SUB-Q QPMAC ml 01/02/17 09/02/18 History subcutaneous pen ergocalciferol (vitamin D2) 50,000 50,000 unit PO ORTIZ cap 03/24/17 09/02/18 History unit capsule Accu-Chek 1 each FS ACHS strip 05/01/17 09/02/18 Rx Acetaminophen [Tylenol] 650 mg PO Q4-6HP PRN tab 05/01/17 09/02/18 Rx allopurinol 100 mg tablet 100 mg PO QDAY #30 tab 05/22/18 09/02/18 Rx atorvastatin 40 mg tablet 40 mg PO QDAY 06/07/18 09/02/18 History calcitriol 0.5 mcg capsule 0.5 mcg PO MOWEFR cap 06/07/18 09/02/18 History sevelamer HCl 800 mg tablet 1,600 mg PO TID tab 06/07/18 09/02/18 History warfarin 5 mg tablet 10 mg PO SUTUTHSA 06/07/18 09/02/18 History losartan 50 mg tablet 50 mg PO QDAY #30 tab 07/02/18 09/02/18 Rx amlodipine 10 mg tablet 10 mg PO QDAY #90 tab 08/20/18 09/02/18 Rx gabapentin 300 mg capsule 300 mg PO QDAY 30 Days #30 cap 08/20/18 09/02/18 Rx torsemide 20 mg tablet 40 mg PO QDAY #180 tab 08/20/18 09/02/18 Rx Warfarin [Coumadin] 15 mg PO MOWEFR 08/23/18 09/02/18 History Omeprazole [PriLOSEC] 20 mg PO ACB #20 cap 08/26/18 09/02/18 Rx Ondansetron [Zofran ODT] 4 mg SL Q6HP PRN #20 tab 08/26/18 09/02/18 Rx Insulin Glargine,Hum.rec.anlog 60 unit SQ DAILY 09/02/18 09/02/18 History [Basaglar Kwikpen U-100] Metoclopramide [Reglan] 5 mg PO AC 09/02/18 09/02/18 History Allergies Allergy/AdvReac Type Severity Reaction Status Date / Time Beta-Blockers AdvReac Mild Hypotension Verified 08/23/18 08:54 (Beta-Adrenergic Bloc Exam Temp Pulse Resp BP Pulse Ox 97.5 F 93 H 16 126/73 92 09/03/18 16:00 09/03/18 17:05 09/03/18 16:00 09/03/18 17:05 09/03/18 16:00 - General physical appearance well developed, well nourished, no distress, no pain - Eyes PERRL, normal ocular movement - ENT normal pinna, normal nares, normal mucosa, no hearing loss, no congestion - Head Head exam IM: Present: atraumatic, normal inspection, normocephalic - Neck no masses, no bruits, trachea midline, no venous distension - Cardiovascular Cardiovascular exam IM: Present: normal rate and rhythm - Respiratory normal respiratory effort, clear to auscultation - Abdomen Abdomen: Present: soft, non tender, bowel sounds - Integumentary Present: other (RIGHT foot TMA site wound was open with pack. This was removed. The bony skeleton of foot is NOT exposed. THere is no purulence. Small exteranl opening noted on plantar site. Probably due to penetration by a sharp object, that started this process. ) - Neurologic Present: normal coordination, other (Paripheral and Autonomic neuropathies. ) - Musculoskeletal Present: other (Bed or Cahir confined at this time. Right foot TMA amputation. Bones covered with muscle envelope Edmatous kin flaps. Viable. See wound care orders in POC portion of this chart. ) - Psychiatric Present: oriented to time, oriented to person, oriented to place, speech is normal - Additional Findings All rest of the examination was unremarkable. Results - Labs 09/03/18 04:50 09/03/18 04:50 Abnormal lab results 09/02/18 09/03/18 09/03/18 Range/Units 16:23 04:50 04:50 RBC 2.55 L (4.50-5.90) M/mcL Hgb 8.6 L (13.5-16.5) g/dL Hct 26.0 L (41.0-55.0) % MCV 101.7 H (80.0-100.0) fL RDW 15.6 H (11.5-14.5) % Gran % 82.5 H (38.0-78.0) % Lymph % (Auto) 10.0 L (15.5-49.0) % Gran # 8.7 H (1.8-8.0) K/mcL Lymph # (Auto) 1.1 L (1.5-4.8) K/mcL PT (11.9-14.5) sec INR (0.9-1.1) Sodium 132 L (133-145) mmol/L Chloride 91 L (96-108) mmol/L BUN 35 H (6-20) mg/dl Creatinine 4.6 H (0.7-1.2) mg/dl Glucose 110 H (70-105) mg/dL Calcium 8.1 L (8.6-10.4) mg/dl Albumin 2.7 L (3.2-5.2) gm/dL Albumin/Globulin Ratio 0.8 L (1.0-2.3) Synovial Neutrophils 79 H (0-25) % 09/03/18 Range/Units 04:50 RBC (4.50-5.90) M/mcL Hgb (13.5-16.5) g/dL Hct (41.0-55.0) % MCV (80.0-100.0) fL RDW (11.5-14.5) % Gran % (38.0-78.0) % Lymph % (Auto) (15.5-49.0) % Gran # (1.8-8.0) K/mcL Lymph # (Auto) (1.5-4.8) K/mcL PT 26.4 H (11.9-14.5) sec INR 2.5 H (0.9-1.1) Sodium (133-145) mmol/L Chloride (96-108) mmol/L BUN (6-20) mg/dl Creatinine (0.7-1.2) mg/dl Glucose (70-105) mg/dL Calcium (8.6-10.4) mg/dl Albumin (3.2-5.2) gm/dL Albumin/Globulin Ratio (1.0-2.3) Synovial Neutrophils (0-25) % Diabetes panel 09/03/18 Range/Units 04:50 Sodium 132 L (133-145) mmol/L Potassium 3.8 (3.3-5.1) mmol/L Chloride 91 L (96-108) mmol/L Carbon Dioxide 29 (22-30) mmol/L BUN 35 H (6-20) mg/dl Creatinine 4.6 H (0.7-1.2) mg/dl Glucose 110 H (70-105) mg/dL Calcium 8.1 L (8.6-10.4) mg/dl AST 25 (0-37) U/l ALT 16 (0-40) U/l Alkaline Phosphatase 79 (39-117) U/L Total Protein 6.3 (5.9-8.4) gm/dL Albumin 2.7 L (3.2-5.2) gm/dL Triglycerides 137 (<150) mg/dl Calcium panel 09/03/18 Range/Units 04:50 Calcium 8.1 L (8.6-10.4) mg/dl Phosphorus 2.7 (2.7-4.5) mg/dL Albumin 2.7 L (3.2-5.2) gm/dL Pituitary panel 09/03/18 Range/Units 04:50 Sodium 132 L (133-145) mmol/L Potassium 3.8 (3.3-5.1) mmol/L Chloride 91 L (96-108) mmol/L Carbon Dioxide 29 (22-30) mmol/L BUN 35 H (6-20) mg/dl Creatinine 4.6 H (0.7-1.2) mg/dl Glucose 110 H (70-105) mg/dL Calcium 8.1 L (8.6-10.4) mg/dl Adrenal panel 09/03/18 Range/Units 04:50 Sodium 132 L (133-145) mmol/L Potassium 3.8 (3.3-5.1) mmol/L Chloride 91 L (96-108) mmol/L Carbon Dioxide 29 (22-30) mmol/L BUN 35 H (6-20) mg/dl Creatinine 4.6 H (0.7-1.2) mg/dl Glucose 110 H (70-105) mg/dL Calcium 8.1 L (8.6-10.4) mg/dl Total Bilirubin 0.4 (0.0-1.0) mg/dL AST 25 (0-37) U/l ALT 16 (0-40) U/l Alkaline Phosphatase 79 (39-117) U/L Total Protein 6.3 (5.9-8.4) gm/dL Albumin 2.7 L (3.2-5.2) gm/dL All other labs normal. Assessment and Plan (1) Foot infection Status: Acute Priority: High Comment: For LOCAL WOUND CARE. OK to proceed with treatment of chronic kidney disease and start HD after insertion of dialysis catheter. Current wound management to continue. WIll follow patient from Wound Care point of view. He understands and agrees. HBO on HOLD today and until further notice. Spoke with Dr. Garcia and Wound Care HBO team. (2) Sepsis affecting skin Status: Acute Priority: High Comment: NECROTIZING skin and soft tissue infection. SEPSIS Uncontrolled diabetes, Anemia, CRF PLAN: HBOT Now later OR debridement / lavage and deep tissue biopsies and cultures. (3) Sepsis Assessment : Local wound care as ordered. Plan: Wound Care with dressing changes. Agree with other consultants input. Local wound care and I/V antibiotics are appropriate at this time. Following patient along with you/ Status: Acute
[2018-09-03] MEDS: ceFAZolin 1 GM VIAL IV SCH (20:00)
[2018-09-03] MEDS: INSULIN GLARGINE, HUMAN 1 UNIT/0.01 ML SQ SCH (21:15)
[2018-09-03] MEDS: DOCUSATE SODIUM 100 MG CAPSULE PO SCH (21:36)
[2018-09-04] MEDS: 0.9 % SODIUM CHLORIDE 10 ML SYRINGE IV SCH ×2 (05:40→22:59)
[2018-09-04 06:32] LABS: Basophils # (Auto) 0.1 K/mcL (0.0-0.3); Basophils % (Auto) 0.7 % (0.0-2.0); Eosinophils # (Auto) 0.2 K/mcL (0.0-0.7); Eosinophils % (Auto) 1.6 % (0.0-7.0); Granulocytes % (Auto) 82.5 % (38.0-78.0); Lymphocytes # (Auto) 0.9 K/mcL (1.5-4.8); Lymphocytes % (Auto) 9.5 % (15.5-49.0); Mean Cell Volume 102.5 fL (80.0-100.0); Mean Corpuscular HGB Conc 32.5 g/dL (31.0-36.0); Monocytes # (Auto) 0.6 K/mcL (0.1-0.9); Monocytes % (Auto) 5.7 % (1.0-12.0); Platelet Count 343 K/mcL (140-440); Red Cell Distribution Width 15.5 % (11.5-14.5)
[2018-09-04 07:07] LABS: ALT/SGPT 16 U/l (0-40); Albumin 2.9 gm/dL (3.2-5.2); Albumin/Globulin Ratio 0.7 (1.0-2.3); Alkaline Phosphatase 94 U/L (39-117); Bilirubin,Direct < 0.2 mg/dL (0.0-0.3); Blood Urea Nitrogen 23 mg/dl (6-20); Gamma Glutamyl Transpeptidase 25 U/L (8-61); Uric Acid 2.8 mg/dL (2.5-8.0)
--- NOTE | 2018-09-04 07:24 | Orthopedic Progress Note ---
Subjective Patient information: Note initiated : 09/04/18 at 7:22 am Service Date, if different from initiated Date: [] Patient: Bart Pagan 58 y/o M admitted on 09/02/18 for right foot wound. Chief Complaint: S/P IRRIGATION AND DEBRIDEMENT OF RIGHT FOOT INFECTION] Patient is resting comfortably w/o any new complaints. He denies any new onset fever, chills, or lower extremity pain. Objective Vital signs: Vital Signs Temp Pulse Pulse Resp BP BP Pulse Ox 09/04/18 03:30 97.9 F 91 H 16 128/80 94 09/03/18 23:00 97.6 F 87 16 144/78 94 09/03/18 20:00 97.6 F 85 16 136/72 93 09/03/18 17:50 98.2 F 89 130/75 09/03/18 17:35 91 H 122/79 09/03/18 17:20 79 139/83 09/03/18 17:05 93 H 126/73 09/03/18 16:50 80 119/79 09/03/18 16:35 77 129/79 09/03/18 16:20 85 121/74 09/03/18 16:05 92 H 121/79 09/03/18 16:00 97.5 F 87 16 133/75 92 09/03/18 15:50 78 133/82 09/03/18 15:35 92 H 128/83 09/03/18 15:20 78 141/82 09/03/18 15:05 92 H 132/75 09/03/18 14:50 93 H 133/80 09/03/18 14:35 89 114/69 09/03/18 14:20 62 117/78 09/03/18 14:05 90 118/73 09/03/18 13:50 90 125/71 09/03/18 13:35 93 H 120/77 09/03/18 13:30 97.4 F 88 129/73 09/03/18 11:38 97.2 F 82 18 132/70 93 Intake and Output 09/03/18 09/04/18 09/04/18 21:59 05:59 13:59 Intake Total 540 / 590 50 / 590 Output Total 250 / 450 200 / 450 Balance 290 / 140 -150 / 140 Intake: Oral 540 / 590 50 / 590 Output: Void Amount 250 / 450 200 / 450 Hemodialysis UF 0 / 0 Other: Meal Lunch Percent of Meal Consumed 100% Feeding Ability Independent Urine Appearance Clear Clear Urine Color Straw Straw Urine Odor Strong Normal Stool Size Small Stool Color Brown Stool Consistency Formed Weight 230 lb 8 oz Intake & Output: Intake & Output 09/03/18 09/04/18 09/04/18 21:59 05:59 13:59 Intake Total 540 / 590 50 / 590 Output Total 250 / 450 200 / 450 Balance 290 / 140 -150 / 140 Weight 230 lb 8 oz Intake: Oral 540 / 590 50 / 590 Output: Void Amount 250 / 450 200 / 450 Hemodialysis UF 0 / 0 Other: Meal Lunch Percent of Meal Consumed 100% Feeding Ability Independent Urine Appearance Clear Clear Urine Color Straw Straw Urine Odor Strong Normal Stool Size Small Stool Color Brown Stool Consistency Formed Incision: Yes clean and dry Dressing: Yes clean, Yes dry, Yes intact Weight bearing status: non (RLE) Neurological exam IM: Yes alert, Yes oriented X3, Yes motor sensory intact, Yes neurovascular intact Extremities exam IM: Yes calf tenderness (negative), Yes Geovanna's sign (negative), Yes neurovascular intact - Labs CBC & BMP: 09/04/18 05:15 09/04/18 05:15 Labs: Orthopedic Labs 09/04/18 09/03/18 09/02/18 05:15 04:50 13:29 PT 22.8 H 26.4 H 21.5 H INR 2.0 H 2.5 H 1.9 H 09/04/18 09/03/18 09/02/18 05:15 04:50 12:39 Hgb 9.6 L 8.6 L 9.4 L Hct 29.7 L 26.0 L 28.1 L Assessment and Plan (1) Foot infection Dr. Murray is following patient for local wound care. Cultures show MSSA. Continue IV abx per infections dx recommendations. Patient will follow-up with Dr. Love in 2 weeks as an outpatient for further amputation recommendations and an MRI of the right lower extremity may be considered at this time to determine the extent of osteomyelitis. He should remain NWB on the RLE at this time. Patient will likely require swing bed vs discharge to SNF per hospitalist. Status: Acute Priority: High Comment:
[2018-09-04] MEDS: INSULIN LISPRO 1 UNIT/0.01 ML UNIT SQ SCH ×5 (07:30→23:24)
[2018-09-04] MEDS ORDERED: LIDOCAINE 1% 20 ML VIAL SQ ONE (10:35)
[2018-09-04] MEDS ORDERED: BUPIVACAINE PF 0.25% 10 ML VIAL IJ ONE (10:35)
[2018-09-04] MEDS ORDERED: TRIAMCINOLONE ACETONIDE 40 MG/ML VIAL INTRAARTIC ONE (10:35)
[2018-09-04] MEDS ORDERED: DEXAMETHASONE 10 MG/ML VIAL IV ONE (10:35)
--- NOTE | 2018-09-04 12:02 | XRay Report ---
CLINICAL INFORMATION: Left knee aspiration steroid injection TECHNIQUE: The procedure and risks including possibility of bleeding, infection were explained to the patient. He understood and wished to proceed. With the patient supine position on the fluoroscopy table, the skin overlying the medial patellofemoral joint was palpated, fluoroscopically marked, prepped and locally anesthetized 1% lidocaine to the central patellofemoral joint level using a 25-gauge needle. A 20-gauge needle was advanced into the subpatellar region. Approximately 12 cc of clear normal synovial fluid was aspirated and retained in the event lab analysis desired. 8 cc of 0.25% bupivacaine, 40 mg of Kenalog and four mg of dexamethasone were then injected and the needle was removed. Fluoroscopy time 22 seconds IMPRESSION: Fluoroscopic-guided aspiration of 12 cc of normal clear synovial fluid from the patellofemoral joint followed by instillation of 40 mg Kenalog, four mg of dexamethasone and 80 cc of 0.25% bupivacaine Interpreted and Authenticated by: Nakul Huynh 09/04/18
--- NOTE | 2018-09-04 12:16 | Internal Med Progress Note ---
Medical - PN: Subj Patient information: Note initiated : 09/04/18 at 12:14 pm Service Date, if different from initiated Date: [] Patient: Bart Pagan a 58 y/o M admitted on 09/02/18 for right foot wound. Chief Complaint: [] Interval history: Mr. Pagan is a 58 year old M with history of diabetes, end-stage renal disease on dialysis, he was recently discharged from this facility where he was admitted for nausea vomiting. The patient notes that there was a small amount of ulceration or opening in his right lower extremity at that time, he continued to work since the time of her discharge. Yesterday noticed that there was significant swelling erythema on his right foot. He noted that he had low-grade temperatures as well as some chills. Given that he has had a nasty foot infection in the past decided to come in today for further evaluation, In the ER on presentation he was afebrile 98.8, heart rate 88 blood pressure 121/69 respirations 12 saturating 94% on 2 L. The wound showed opening and there was significant amount of pus coming out, there was cellulitis surrounding this wound. Dr. Echevarria orthopedic surgeon pickle solution maker was consulted by the ER who took the patient to the surgery and drain the wound. The plan is to have Dr. Love evaluate the patient later for further revision surgeries as needed. Medicine was asked to admit the patient given extensive medical comorbidities. On my evaluation the patient noted that he also has been having some pain in his left knee, this has been there intermittently on and off for many weeks however for the last week or so has been quite worse. On my eval there was also some effusion in the left knee and the knee was tender to touch. Patient does have a history of gout. 09/03 Patient seen and examined, no acute overnight events no complaints or concerns. The left knee is still bothering him. We tapped the knee yesterday it is negative for any inflammation or acute infection most likely osteoarthritis related pain. Plan for steroid injection today. Blood cultures are positive, echocardiogram ordered. Wound care and infectious disease nephrology and orthopedics are following the patient. Blood cultures and wound cultures are emesis staph. Vancomycin and Zosyn has been discontinued patient has been started on Ancef 09/04 Pt seen examined, no acute overnight events. Pt s/p steroid inj in the knee. He has no new complaints or concerns Plan to review dressing changse with wound care, continue abx, plan for d/c to snf tomorrow if remains stable and wound care needs be met there. Pertinent ROS: Denies headache, dizziness Denies chest pain, palpitations Denies cough or shortness of breath Denies abdominal pain, nausea or vomiting. - Constitutional Vitals: Vital Signs Temp Pulse Resp BP Pulse Ox 97.9 F 91 H 16 128/80 94 09/04/18 03:30 09/04/18 03:30 09/04/18 03:30 09/04/18 03:30 09/04/18 03:30 Period Temp Pulse Resp BP Sys/Mancini Pulse Ox Last 24 Hr 97.4 F-98.2 F 62-93 16-16 114-144/69-83 92-94 Intake and Output 09/03/18 09/04/18 09/04/18 21:59 05:59 13:59 Intake Total 540 / 590 50 / 590 Output Total 250 / 450 200 / 450 Balance 290 / 140 -150 / 140 Weight 230 lb 8 oz Intake & Output: Intake & Output 09/03/18 09/04/18 09/04/18 21:59 05:59 13:59 Intake Total 540 / 590 50 / 590 Output Total 250 / 450 200 / 450 Balance 290 / 140 -150 / 140 Weight 230 lb 8 oz Intake: Oral 540 / 590 50 / 590 Output: Void Amount 250 / 450 200 / 450 Hemodialysis UF 0 / 0 Other: Meal Lunch Percent of Meal Consumed 100% Feeding Ability Independent Urine Appearance Clear Clear Urine Color Straw Straw Urine Odor Strong Normal Stool Size Small Stool Color Brown Stool Consistency Formed Exam: Constitutional; Afebrile, cooperative, alert, not in distress. Respiratory system: Air Entry equal on both sides, No crackles or wheezing, no rhonchi. CVS- Rate rhythm regular, S1,S2 heard, no gallop, no rub. 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 Medical - PN: Obj Da - Labs CBC & Chem 7: 09/04/18 05:15 09/04/18 05:15 Labs: Abnormal Lab Results 09/04/18 09/04/18 09/04/18 05:15 05:15 05:15 WBC RBC 2.90 L Hgb 9.6 L Hct 29.7 L MCV 102.5 H MCH RDW 15.5 H Gran % 82.5 H Lymph % (Auto) 9.5 L Gran # 8.1 H Lymph # (Auto) 0.9 L PT 22.8 H INR 2.0 H Sodium 132 L Chloride 90 L BUN 23 H Creatinine 2.8 H Glucose 187 H Calcium Phosphorus 2.6 L Albumin 2.9 L Globulin 4.3 H Albumin/Globulin Ratio 0.7 L Triglycerides 211 H Synovial Neutrophils 09/03/18 09/03/18 09/03/18 04:50 04:50 04:50 WBC RBC 2.55 L Hgb 8.6 L Hct 26.0 L MCV 101.7 H MCH RDW 15.6 H Gran % 82.5 H Lymph % (Auto) 10.0 L Gran # 8.7 H Lymph # (Auto) 1.1 L PT 26.4 H INR 2.5 H Sodium 132 L Chloride 91 L BUN 35 H Creatinine 4.6 H Glucose 110 H Calcium 8.1 L Phosphorus Albumin 2.7 L Globulin Albumin/Globulin Ratio 0.8 L Triglycerides Synovial Neutrophils 09/02/18 09/02/18 09/02/18 16:23 13:29 12:39 WBC RBC Hgb Hct MCV MCH RDW Gran % Lymph % (Auto) Gran # Lymph # (Auto) PT 21.5 H INR 1.9 H Sodium 130 L Chloride 89 L BUN 28 H Creatinine 4.2 H Glucose 174 H Calcium 8.3 L Phosphorus Albumin 3.0 L Globulin 4.1 H Albumin/Globulin Ratio 0.7 L Triglycerides Synovial Neutrophils 79 H 09/02/18 12:39 WBC 15.8 H RBC 2.75 L Hgb 9.4 L Hct 28.1 L MCV 102.1 H MCH 34.3 H RDW 15.5 H Gran % 90.6 H Lymph % (Auto) 3.5 L Gran # 14.3 H Lymph # (Auto) 0.5 L PT INR Sodium Chloride BUN Creatinine Glucose Calcium Phosphorus Albumin Globulin Albumin/Globulin Ratio Triglycerides Synovial Neutrophils Meds: Medications Acetaminophen (Tylenol) 650 mg PO Q6HP PRN PRN Reason: PAIN/FEVER > 101 Albuterol Sulfate (Ventolin) 2.5 mg NEB Q2HP PRN PRN Reason: Shortness Of Breath Cefazolin Sodium (Ancef) 2 gm IV MoWe@1800 [facility] Last Admin: 09/03/18 20:00 Dose: 2 gm Documented by: Cefazolin Sodium (Ancef) 3 gm IV Fr@1800 [facility] Dextrose (Dextrose 50%) 0 ml IV UD PRN PRN Reason: Hypoglycemia Diagnostic Test (Pha) (Accu-Chek) 1 each FS [facility] Last Admin: 09/03/18 20:50 Dose: 1 each Documented by: Docusate Sodium (Colace) 100 mg PO BID [facility] Last Admin: 09/03/18 21:36 Dose: 100 mg Documented by: Glucose (Insta-Glucose) 15 gm PO PRN PRN PRN Reason: Hypoglycemia Hydromorphone HCl (Dilaudid) 0.5 mg IV Q2HP PRN PRN Reason: PAIN LEVEL > 6 Last Admin: 09/03/18 20:48 Dose: 0.5 mg Documented by: Insulin Glargine (Lantus) 20 unit SQ [facility] Last Admin: 09/03/18 21:15 Dose: 20 unit Documented by: Insulin Human Lispro (Humalog) 0 unit SQ [facility]; Protocol Last Admin: 09/03/18 21:15 Dose: 1 units Documented by: Naloxone HCl (Narcan) 0.1 mg IV Q2MIN PRN PRN Reason: Opiate Reversal Oxycodone HCl (Roxicodone) 5 mg PO Q4HP PRN PRN Reason: PAIN LEVEL 3-6 Last Admin: 09/03/18 14:50 Dose: 5 mg Documented by: Sodium Chloride (Saline Flush) 10 ml IV Q8 [facility] Last Admin: 09/04/18 05:40 Dose: Not Given Documented by: Warfarin Sodium (Coumadin Per Pharmacy) 1 order PO UD [facility] Medical - PN: A/P - Time Spent With Patient Total time spent is greater than 50% in coordination of care (as documented) at patient's floor/unit and/or counseling patient: - Narrative A/P Narrative: A/P Cellulitis with Osteomyelitis , Right foot ESRD on HD DM HTN HLD Gout Knee pain, left Diabetic Gastroparesis Atrial fibrillation Hypothyroidsim Plan s/p incision and drainage of wound, cultures sent, mssa staph noted on iv anceph now. Nephrology and Infectious disease consult and wound care consulting. Dr Flock ortho will likely follow up, decide need for further intervention. He is on vacation for 2 weeks. Aspirate the left knee, sent for cell count, neg for any infection, steroid injection today continue home meds once verified HD today. DVT on coumadin Full code Carb consistent/ renal diet. Medical - PN: Qual - VTE Deep Vein Thrombosis/Pulmonary Embolism Present on Admission: No
[2018-09-04] MEDS ORDERED: WARFARIN 10 MG TABLET PO ONE (14:00)
--- NOTE | 2018-09-04 16:09 | Infectious Disease Prog Note ---
Subjective Patient information: Note initiated : 09/04/18 at 4:03 pm Service Date, if different from initiated Date: [] Patient: Bart Pagan 58 y/o M admitted on 09/02/18 for right foot wound. Chief Complaint: [] Interval history: Patient is doing well. Denies any fever, chills, diarrhea. Endorses some nausea. His pain is well controlled in his knee and the surgical site. Objective Objective Narrative: ao x3, in nad no thrush chest cta s1 s2 normal bs ++ nttd the right arm AVF site looks fine Rt foot wrapped in surgical dressing - Vital Signs Vital signs: Vital Signs Temp Pulse Pulse Resp BP BP Pulse Ox 09/04/18 15:50 36.6 C 20 134/68 97 09/04/18 12:00 36.1 C 87 16 123/79 94 09/04/18 03:30 36.6 C 91 H 16 128/80 94 09/03/18 23:00 36.4 C 87 16 144/78 94 09/03/18 20:00 36.4 C 85 16 136/72 93 09/03/18 17:50 36.8 C 89 130/75 09/03/18 17:35 91 H 122/79 09/03/18 17:20 79 139/83 09/03/18 17:05 93 H 126/73 09/03/18 16:50 80 119/79 09/03/18 16:35 77 129/79 09/03/18 16:20 85 121/74 09/03/18 16:05 92 H 121/79 Intake and Output 09/04/18 09/04/18 09/04/18 05:59 13:59 21:59 Intake Total 50 / 590 Output Total 200 / 450 Balance -150 / 140 Intake: Oral 50 / 590 Output: Void Amount 200 / 450 Other: Urine Appearance Clear Urine Color Straw Urine Odor Normal Stool Size Small Stool Color Brown Stool Consistency Formed Intake & Output: Intake & Output 09/04/18 09/04/18 09/04/18 05:59 13:59 21:59 Intake Total 50 / 590 Output Total 200 / 450 Balance -150 / 140 Intake: Oral 50 / 590 Output: Void Amount 200 / 450 Other: Urine Appearance Clear Urine Color Straw Urine Odor Normal Stool Size Small Stool Color Brown Stool Consistency Formed - Lab 09/04/18 05:15 09/04/18 05:15 Most recent lab results Calcium 8.6 mg/dl (8.6-10.4) 09/04/18 05:15 Phosphorus 2.6 mg/dL (2.7-4.5) L 09/04/18 05:15 Magnesium 1.9 mg/dL (1.6-2.5) 09/04/18 05:15 Microbiology 09/02/18 13:48 Wound - Not Given Gram Stain - Final 09/02/18 13:48 Wound - Not Given Gram Stain - Final 09/02/18 13:48 Wound - Not Given Anaerobic Culture - Preliminary 09/02/18 13:48 Wound - Not Given Gram Stain - Final 09/02/18 13:48 Wound - Not Given Wound Culture - Final Staphylococcus aureus 09/02/18 13:48 Wound - Not Given Gram Stain - Final 09/02/18 13:48 Wound - Not Given Gram Stain - Final 09/02/18 13:48 Wound - Not Given Anaerobic Culture - Preliminary 09/02/18 13:48 Wound - Not Given Gram Stain - Final 09/02/18 13:48 Wound - Not Given Wound Culture - Final Staphylococcus aureus 09/02/18 16:23 Synovial Fluid Gram Stain - Final 09/02/18 16:23 Synovial Fluid Body Fluid Culture - Final 09/02/18 12:39 Blood Blood Culture - Preliminary Staphylococcus aureus 09/02/18 12:50 Blood Blood Culture - Preliminary Gram positive cocci Medications Active Medications: Acetaminophen (Tylenol) 650 mg PO Q6HP PRN PRN Reason: PAIN/FEVER > 101 Albuterol Sulfate (Ventolin) 2.5 mg NEB Q2HP PRN PRN Reason: Shortness Of Breath Cefazolin Sodium (Ancef) 2 gm IV MoWe@1800 [facility] Last Admin: 09/03/18 20:00 Dose: 2 gm Documented by: RBLEW Cefazolin Sodium (Ancef) 3 gm IV Fr@1800 [facility] Dextrose (Dextrose 50%) 0 ml IV UD PRN PRN Reason: Hypoglycemia Diagnostic Test (Pha) (Accu-Chek) 1 each FS ACHS [facility] Last Admin: 09/04/18 12:25 Dose: 1 each Documented by: [email or web address] Admin: 09/04/18 12:24 Dose: 1 each Documented by: [email or web address] Admin: 09/03/18 20:50 Dose: 1 each Documented by: Admin: 09/03/18 18:13 Dose: 1 each Documented by: Admin: 09/03/18 11:43 Dose: 1 each Documented by: Admin: 09/03/18 07:41 Dose: 1 each Documented by: Admin: 09/02/18 21:06 Dose: 1 each Documented by: Admin: 09/02/18 17:00 Dose: 1 each Documented by: RUBEN Docusate Sodium (Colace) 100 mg PO BID [facility] Last Admin: 09/03/18 21:36 Dose: 100 mg Documented by: ANNY Glucose (Insta-Glucose) 15 gm PO PRN PRN PRN Reason: Hypoglycemia Hydromorphone HCl (Dilaudid) 0.5 mg IV Q2HP PRN PRN Reason: PAIN LEVEL > 6 Last Admin: 09/03/18 20:48 Dose: 0.5 mg Documented by: ANNY Insulin Glargine (Lantus) 20 unit SQ [facility] Last Admin: 09/03/18 21:15 Dose: 20 unit Documented by: ANNY Insulin Human Lispro (Humalog) 0 unit SQ [facility]; Protocol Last Admin: 09/04/18 12:24 Dose: 2 units Documented by: Admin: 09/04/18 07:30 Dose: Not Given Documented by: RUBEN Non-Admin Reason: No Coverage Needed Admin: 09/03/18 21:15 Dose: 1 units Documented by: Admin: 09/03/18 18:13 Dose: Not Given Documented by: RUBEN Non-Admin Reason: No Coverage Needed Admin: 09/03/18 11:30 Dose: Not Given Documented by: RUBEN Non-Admin Reason: not eating Admin: 09/03/18 07:42 Dose: Not Given Documented by: RUBEN Non-Admin Reason: No Coverage Needed Admin: 09/02/18 21:09 Dose: 3 units Documented by: Admin: 09/02/18 18:30 Dose: 1 units Documented by: RUBEN Naloxone HCl (Narcan) 0.1 mg IV Q2MIN PRN PRN Reason: Opiate Reversal Oxycodone HCl (Roxicodone) 5 mg PO Q4HP PRN PRN Reason: PAIN LEVEL 3-6 Last Admin: 09/03/18 14:50 Dose: 5 mg Documented by: Admin: 09/03/18 10:32 Dose: 5 mg Documented by: Admin: 09/03/18 04:14 Dose: 5 mg Documented by: Admin: 09/03/18 00:12 Dose: 5 mg Documented by: Admin: 09/02/18 16:53 Dose: 5 mg Documented by: RUBEN Sodium Chloride (Saline Flush) 10 ml IV Q8 [facility] Last Admin: 09/04/18 05:40 Dose: Not Given Documented by: ANNY Non-Admin Reason: Completed with Dilaudid administration. Admin: 09/03/18 21:37 Dose: 10 ml Documented by: Admin: 09/03/18 18:13 Dose: 10 ml Documented by: Admin: 09/03/18 04:13 Dose: 10 ml Documented by: Admin: 09/02/18 21:06 Dose: 10 ml Documented by: BRYANT Warfarin Sodium (Coumadin Per Pharmacy) 1 order PO UD [facility] Assessment and Plan - Narrative A/P Narrative: A: 1. 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 DM2 3. ESRD on HD through Rt arm AVF Recommendations: - Continue IV Cefazolin 2 gm after HD session on Monday, 2 gm after HD session on Monday and 3 gm after HD session on Monday. Patient first day of antibiotic therapy is 09/04/2018 - Pt would need at least 4 weeks of antibiotic therapy without definitive surgery. As pt needs to f/u with Dr Love for possibility of further surgical d ebridement (BKA), an outpt MRI could be considered to evaluate for extent of osteomyelitis. If pt undergoes BKA before next 4 weeks, he may not need detention antibiotic therapy - will share follow up details close to discharge Chucky Bustos MD Infectious diseases
[2018-09-04] MEDS: DOCUSATE SODIUM 100 MG CAPSULE PO SCH ×2 (16:26→22:59)
--- NOTE | 2018-09-04 17:02 | General Surgery Progress Note ---
Subjective Patient reports: no new complaints, other (Patient seen this morning with Brigitte health care assistant nurse and reassessed agin this evening.) Narrative: Note initiated : 09/04/18 at 4:59 pm Service Date, if different from initiated Date: [] Patient: Bart Pagan 58 y/o M admitted on 09/02/18 for right foot wound. Chief Complaint: [] Objective Temp Pulse Resp BP Pulse Ox 97.9 F 87 20 134/68 97 09/04/18 15:50 09/04/18 12:00 09/04/18 15:50 09/04/18 15:50 09/04/18 15:50 AVSS. No changes STONEY. Dressings Right foot CDI Labs wound c/s MSSA Leucocytosis resolved. Reviewed ID input Dr. talbert. - Additional Data Intake & Output - Last 24 hours: Intake & Output 09/02/18 09/03/18 09/04/18 09/05/18 05:59 05:59 05:59 05:59 Intake Total 550 / 550 590 / 590 Output Total 200 / 200 450 / 450 Balance 350 / 350 140 / 140 Weight 222 lb 8 oz 230 lb 8 oz - Labs 09/04/18 05:15 09/04/18 05:15 Diabetes panel 09/04/18 Range/Units 05:15 Sodium 132 L (133-145) mmol/L Potassium 3.8 (3.3-5.1) mmol/L Chloride 90 L (96-108) mmol/L Carbon Dioxide 27 (22-30) mmol/L BUN 23 H (6-20) mg/dl Creatinine 2.8 H (0.7-1.2) mg/dl Glucose 187 H (70-105) mg/dL Calcium 8.6 (8.6-10.4) mg/dl AST 22 (0-37) U/l ALT 16 (0-40) U/l Alkaline Phosphatase 94 (39-117) U/L Total Protein 7.2 (5.9-8.4) gm/dL Albumin 2.9 L (3.2-5.2) gm/dL Triglycerides 211 H (<150) mg/dl Calcium panel 09/04/18 Range/Units 05:15 Calcium 8.6 (8.6-10.4) mg/dl Phosphorus 2.6 L (2.7-4.5) mg/dL Albumin 2.9 L (3.2-5.2) gm/dL Pituitary panel 09/04/18 Range/Units 05:15 Sodium 132 L (133-145) mmol/L Potassium 3.8 (3.3-5.1) mmol/L Chloride 90 L (96-108) mmol/L Carbon Dioxide 27 (22-30) mmol/L BUN 23 H (6-20) mg/dl Creatinine 2.8 H (0.7-1.2) mg/dl Glucose 187 H (70-105) mg/dL Calcium 8.6 (8.6-10.4) mg/dl Adrenal panel 09/04/18 Range/Units 05:15 Sodium 132 L (133-145) mmol/L Potassium 3.8 (3.3-5.1) mmol/L Chloride 90 L (96-108) mmol/L Carbon Dioxide 27 (22-30) mmol/L BUN 23 H (6-20) mg/dl Creatinine 2.8 H (0.7-1.2) mg/dl Glucose 187 H (70-105) mg/dL Calcium 8.6 (8.6-10.4) mg/dl Total Bilirubin 0.4 (0.0-1.0) mg/dL AST 22 (0-37) U/l ALT 16 (0-40) U/l Alkaline Phosphatase 94 (39-117) U/L Total Protein 7.2 (5.9-8.4) gm/dL Albumin 2.9 L (3.2-5.2) gm/dL Assessment and Plan (1) Foot infection Problem details: Status: Acute Current Visit: No (2) Sepsis affecting skin Problem details: NECROTIZING skin and soft tissue infection. SEPSIS Uncontrolled diabetes, Anemia, CRF PLAN: HBOT Now later OR debridement / lavage and deep tissue biopsies and cultures. Status: Acute Current Visit: No (3) Sepsis Status: Acute Current Visit: Yes - Narrative A/P Narrative: Assessment: Progressing well from wound care point of view. Will monitor progress and await developments. Plan: Check post surgical wounds in next 24 to 48 hours and change dressings. - Time Spent With Patient Total time spent is greater than 50% in coordination of care (as documented) at patient's floor/unit and/or counseling patient: 15 - 24 minutes
--- NOTE | 2018-09-04 17:38 | Nephrology Consult Note ---
History of Present Illness - Reason for Consult Patient information: Note initiated : 09/04/18 at 5:32 pm Service Date, if different from initiated Date: [] Patient: Bart Pagan 58 y/o M admitted on 09/02/18 for right foot wound. Chief Complaint: [] Consult date: 09/04/18 end stage renal disease Requesting physician: Izabela Gray - Chief Complaint fever - History of Present Illness Patient is a 58 y/o pleasant white male with PMH of ESRD on HD who is admitted with right foot cellulitis Patient has h/o right foot infection for which he has had transmetatarsal amputation. The patient was noted to have some open wound without fetaures of infection recently and was scheduled to see wound care, he however developed redness, pain, fever for one day and presented to ER. he was diagnosed to have abscess with surrounding cellulitis and ortho was consulted on presentation and the was taken to OR. Since then his blood cultures are positive for Staph aureus, he is on cefazolin, he is awaiting further plan from ortho and wound care, He has been followed by ID as well He states he feels much better and he denies SOB, CP, edema has not been eating well no dizziness no other issues He was seen yesterday and today, note documented today. 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 [employer], no current addictions Medications and Allergies Home Medications Medication Instructions Recorded Confirmed Type insulin detemir (U-100) 100 60 unit SUB-Q HS ml 01/15/16 09/02/18 History unit/mL (3 mL) subcutaneous pen levothyroxine 150 mcg capsule 300 mcg PO ACB 05/27/16 09/02/18 History insulin aspart U- 100 100 unit/mL 15 unit SUB-Q QPMAC ml 01/02/17 09/02/18 History subcutaneous pen ergocalciferol (vitamin D2) 50,000 50,000 unit PO ORTIZ cap 03/24/17 09/02/18 History unit capsule RX: Accu-Chek 1 each FS ACHS strip 05/01/17 09/02/18 Rx RX: Acetaminophen [Tylenol] 650 mg PO Q4-6HP PRN tab 05/01/17 09/02/18 Rx allopurinol 100 mg tablet 100 mg PO QDAY #30 tab 05/22/18 09/02/18 Rx atorvastatin 40 mg tablet 40 mg PO QDAY 06/07/18 09/02/18 History calcitriol 0.5 mcg capsule 0.5 mcg PO MOWEFR cap 06/07/18 09/02/18 History sevelamer HCl 800 mg tablet 1,600 mg PO TID tab 06/07/18 09/02/18 History warfarin 5 mg tablet 10 mg PO SUTUTHSA 06/07/18 09/02/18 History losartan 50 mg tablet 50 mg PO QDAY #30 tab 07/02/18 09/02/18 Rx amlodipine 10 mg tablet 10 mg PO QDAY #90 tab 08/20/18 09/02/18 Rx gabapentin 300 mg capsule 300 mg PO QDAY 30 Days #30 cap 08/20/18 09/02/18 Rx torsemide 20 mg tablet 40 mg PO QDAY #180 tab 08/20/18 09/02/18 Rx RX: Warfarin [Coumadin] 15 mg PO MOWEFR 08/23/18 09/02/18 History Omeprazole [PriLOSEC] 20 mg PO ACB #20 cap 08/26/18 09/02/18 Rx Ondansetron [Zofran ODT] 4 mg SL Q6HP PRN #20 tab 08/26/18 09/02/18 Rx Insulin Glargine,Hum.rec.anlog 60 unit SQ DAILY 09/02/18 09/02/18 History [Basaglar Kwikpen U-100] Metoclopramide [Reglan] 5 mg PO AC 09/02/18 09/02/18 History Allergies Allergy/AdvReac Type Severity Reaction Status Date / Time Beta-Blockers AdvReac Mild Hypotension Verified 08/23/18 08:54 (Beta-Adrenergic Bloc Exam - Vital Signs Vital signs: Temp Pulse Resp BP Pulse Ox 97.9 F 87 20 134/68 97 09/04/18 15:50 09/04/18 12:00 09/04/18 15:50 09/04/18 15:50 09/04/18 15:50 - General Appearance General appearance: appears started age, obese EENT: mucous membranes moist Neck: no JVD Respiratory: clear Cardiology: no rub, no edema, normal S1, normal S2 Gastrointestinal: no tenderness, no guarding Integumentary: warm and dry Neurologic: alert and oriented x3 Musculoskeletal: no cyanosis, no clubbing Psychiatric: mood/affect appropriate Results - Lab Results 09/04/18 05:15 09/04/18 05:15 Most recent lab results Calcium 8.6 mg/dl (8.6-10.4) 09/04/18 05:15 Phosphorus 2.6 mg/dL (2.7-4.5) L 09/04/18 05:15 Magnesium 1.9 mg/dL (1.6-2.5) 09/04/18 05:15 Assessment and Plan (1) Foot infection Status: Acute Priority: High Comment: (2) ESRD (end stage renal disease) Status: Acute (3) Anemia Status: Chronic - Narrative A/P Narrative: HD done yesterday, no UF removed next HD tomorrow Anemia: etiology multifactorial, will follow the trend, will need aranesp phos is low, will hold binders HTN: BP is at goal, not on meds monitor and resume as needed low albumin, will start nepro staph bacteremia/LE abscess: on antibiotics, followed by wound care and ortho will follow along
[2018-09-04] MEDS: INSULIN GLARGINE, HUMAN 1 UNIT/0.01 ML SQ SCH (21:21)
[2018-09-05] MEDS: 0.9 % SODIUM CHLORIDE 10 ML SYRINGE IV SCH ×4 (00:46→17:21)
[2018-09-05] MEDS ORDERED: INSULIN REGULAR, HUMAN 1 UNIT/0.01 ML UNIT IV ONE (01:46)
[2018-09-05] MEDS ORDERED: INSULIN REGULAR, HUMAN 1 UNIT/0.01 ML UNIT ONE (01:51)
[2018-09-05 06:28] LABS: Basophils # (Auto) 0 K/mcL (0.0-0.3); Basophils % (Auto) 0 % (0.0-2.0); Eosinophils # (Auto) 0 K/mcL (0.0-0.7); Eosinophils % (Auto) 0 % (0.0-7.0); Granulocytes % (Auto) 93.9 % (38.0-78.0); Lymphocytes # (Auto) 0.6 K/mcL (1.5-4.8); Lymphocytes % (Auto) 4.8 % (15.5-49.0); Mean Cell Volume 102.6 fL (80.0-100.0); Mean Corpuscular HGB Conc 32.1 g/dL (31.0-36.0); Monocytes # (Auto) 0.1 K/mcL (0.1-0.9); Monocytes % (Auto) 1.3 % (1.0-12.0); Platelet Count 365 K/mcL (140-440); RBC 3.12 M/mcL (4.50-5.90); Red Cell Distribution Width 15.3 % (11.5-14.5)
[2018-09-05 06:43] LABS: ALT/SGPT 9 U/l (0-40); Albumin 2.7 gm/dL (3.2-5.2); Albumin/Globulin Ratio 0.6 (1.0-2.3); Alkaline Phosphatase 85 U/L (39-117); Bilirubin,Direct < 0.2 mg/dL (0.0-0.3); Blood Urea Nitrogen 48 mg/dl (6-20); Gamma Glutamyl Transpeptidase 25 U/L (8-61)
[2018-09-05] MEDS: INSULIN LISPRO 1 UNIT/0.01 ML UNIT SQ SCH ×5 (07:57→21:50)
[2018-09-05] MEDS: DOCUSATE SODIUM 100 MG CAPSULE PO SCH ×3 (09:00→22:54)
--- NOTE | 2018-09-05 09:21 | Nephrology Progress Note ---
Subjective Patient information: Note initiated : 09/05/18 at 9:19 am Service Date, if different from initiated Date: [] Patient: Bart Pagan 58 y/o M admitted on 09/02/18 for right foot wound. Chief Complaint: [] Principal diagnosis: RIGHT FOOT abscess/cellulitis Interval history: No new concerns repeat culture negative for growth patient denies fever, chills no SOB no edema pain control good no GI symptoms plan for discharge possibly to SNF Pertinent ROS: ABOVE Objective - Vital Signs Vital signs: Vital Signs Temp Pulse Resp BP Pulse Ox 09/05/18 07:02 97.0 F 84 16 132/81 96 09/05/18 03:00 97.8 F 87 16 146/76 95 09/05/18 00:00 97.5 F 94 H 16 154/88 95 09/04/18 19:45 97.9 F 85 16 146/80 97 09/04/18 15:50 97.9 F 20 134/68 97 09/04/18 12:00 97 F 87 16 123/79 94 Intake and Output 09/04/18 09/05/18 09/05/18 21:59 05:59 13:59 Intake Total 300 / 300 Output Total 300 / 450 150 / 450 Balance -300 / -150 150 / -150 Intake: Oral 300 / 300 Output: Void Amount 300 / 450 150 / 450 Other: Meal Lunch Percent of Meal Consumed 75% Urine Appearance Clear Urine Color Bright Yellow Weight 232 lb Intake & Output: Intake & Output 09/04/18 09/05/18 09/05/18 21:59 05:59 13:59 Intake Total 300 / 300 Output Total 300 / 450 150 / 450 Balance -300 / -150 150 / -150 Weight 232 lb Intake: Oral 300 / 300 Output: Void Amount 300 / 450 150 / 450 Other: Meal Lunch Percent of Meal Consumed 75% Urine Appearance Clear Urine Color Bright Yellow - General Appearance General appearance: appears started age, obese EENT: mucous membranes moist Neck: no JVD Respiratory: clear Cardiology: no rub, no edema, normal S1, normal S2 Gastrointestinal: no tenderness, no guarding Integumentary: warm and dry Neurologic: alert and oriented x3 Musculoskeletal: no erythema, no cyanosis Psychiatric: mood/affect appropriate - Lab 09/05/18 05:27 09/05/18 05:27 Most recent lab results Calcium 8.2 mg/dl (8.6-10.4) L 09/05/18 05:27 Phosphorus 2.7 mg/dL (2.7-4.5) 09/05/18 05:27 Magnesium 2.1 mg/dL (1.6-2.5) 09/05/18 05:27 Assessment and Plan (1) Foot infection Status: Acute Priority: High Comment: (2) ESRD (end stage renal disease) Status: Acute (3) Anemia Status: Chronic - Narrative A/P Narrative: Patient will get his dialysis today, 4.25hrs, using revaclear dialyser, 3K/2.5Ca dialysate, UF goal to dry weight next HD on Monday Anemia: Hb up at 10.3 at goal secondary hyperparathyroidism: phos and corrected calcium at goal, please discharge on sevelamer 800mg tid with meals on discharge HTN: BP is well controlled will hold of on antihypertensives for now Right foot cellulitis/abscess: will need wound care/ortho follow up on cefazolin please dose meds to HD Will follow along
[2018-09-05] MEDS: GABAPENTIN 300 MG CAPSULE PO SCH (10:41)
[2018-09-05] MEDS: ALLOPURINOL 100 MG TABLET PO SCH (10:41)
[2018-09-05] MEDS: CALCITRIOL 0.25 MCG CAPSULE PO SCH (10:41)
--- NOTE | 2018-09-05 11:46 | Infectious Disease Prog Note ---
Subjective Patient information: Note initiated : 09/05/18 at 11:38 am Service Date, if different from initiated Date: [] Patient: Bart Pagan 58 y/o M admitted on 09/02/18 for right foot wound. Chief Complaint: [] Principal diagnosis: RIGHT FOOT abscess/cellulitis Interval history: Patient is doing better. He denies any fever, chills, nausea, vomiting, diarrhea. Shares that he does not have a place to go and would probably end up going either to a rehab [if his insurance pays] or to a swing bed. Objective Objective Narrative: Alert, oriented x3 No thrush chest is clear to auscultation S1-S2 normal Bowel sounds present No edema Right arm AV fistula looks fine - Vital Signs Vital signs: Vital Signs Temp Pulse Resp BP Pulse Ox 09/05/18 07:02 36.1 C 84 16 132/81 96 09/05/18 03:00 36.6 C 87 16 146/76 95 09/05/18 00:00 36.4 C 94 H 16 154/88 95 09/04/18 19:45 36.6 C 85 16 146/80 97 09/04/18 15:50 36.6 C 20 134/68 97 09/04/18 12:00 36.1 C 87 16 123/79 94 Intake and Output 09/04/18 09/05/18 09/05/18 21:59 05:59 13:59 Intake Total 300 / 300 Output Total 300 / 450 150 / 450 Balance -300 / -150 150 / -150 Intake: Oral 300 / 300 Output: Void Amount 300 / 450 150 / 450 Other: Meal Lunch Percent of Meal Consumed 75% Urine Appearance Clear Urine Color Bright Yellow Weight 105.233 kg Intake & Output: Intake & Output 09/04/18 09/05/18 09/05/18 21:59 05:59 13:59 Intake Total 300 / 300 Output Total 300 / 450 150 / 450 Balance -300 / -150 150 / -150 Weight 105.233 kg Intake: Oral 300 / 300 Output: Void Amount 300 / 450 150 / 450 Other: Meal Lunch Percent of Meal Consumed 75% Urine Appearance Clear Urine Color Bright Yellow - Lab 09/05/18 05:27 09/05/18 05:27 Most recent lab results Calcium 8.2 mg/dl (8.6-10.4) L 09/05/18 05:27 Phosphorus 2.7 mg/dL (2.7-4.5) 09/05/18 05:27 Magnesium 2.1 mg/dL (1.6-2.5) 09/05/18 05:27 Microbiology 09/02/18 13:48 Wound - Not Given Gram Stain - Final 09/02/18 13:48 Wound - Not Given Gram Stain - Final 09/02/18 13:48 Wound - Not Given Anaerobic Culture - Preliminary 09/02/18 13:48 Wound - Not Given Gram Stain - Final 09/02/18 13:48 Wound - Not Given Wound Culture - Final Staphylococcus aureus 09/02/18 13:48 Wound - Not Given Gram Stain - Final 09/02/18 13:48 Wound - Not Given Gram Stain - Final 09/02/18 13:48 Wound - Not Given Anaerobic Culture - Preliminary 09/02/18 13:48 Wound - Not Given Gram Stain - Final 09/02/18 13:48 Wound - Not Given Wound Culture - Final Staphylococcus aureus 09/04/18 05:20 Blood Blood Culture - Preliminary 09/04/18 05:15 Blood Blood Culture - Preliminary 09/02/18 16:23 Synovial Fluid Gram Stain - Final 09/02/18 16:23 Synovial Fluid Body Fluid Culture - Final 09/02/18 12:39 Blood Blood Culture - Preliminary Staphylococcus aureus 09/02/18 12:50 Blood Blood Culture - Preliminary Gram positive cocci Medications Active Medications: Acetaminophen (Tylenol) 650 mg PO Q6HP PRN PRN Reason: PAIN/FEVER > 101 Albuterol Sulfate (Ventolin) 2.5 mg NEB Q2HP PRN PRN Reason: Shortness Of Breath Allopurinol (Zyloprim) 100 mg PO QDAY [facility] Last Admin: 09/05/18 10:41 Dose: 100 mg Documented by: MANNY Amlodipine Besylate (Norvasc) 10 mg PO QDAY [facility] Atorvastatin Calcium (Lipitor) 40 mg PO HS [facility] Calcitriol (Rocaltrol) 0.5 mcg PO MoWeFr@0900 [facility] Last Admin: 09/05/18 10:41 Dose: 0.5 mcg Documented by: MANNY Cefazolin Sodium (Ancef) 2 gm IV MoWe@1800 [facility] Last Admin: 09/03/18 20:00 Dose: 2 gm Documented by: ANNY Cefazolin Sodium (Ancef) 3 gm IV Fr@1800 [facility] Dextrose (Dextrose 50%) 0 ml IV UD PRN PRN Reason: Hypoglycemia Diagnostic Test (Pha) (Accu-Chek) 1 each FS ACHS [facility] Last Admin: 09/05/18 10:52 Dose: 1 each Documented by: Admin: 09/05/18 09:01 Dose: 1 each Documented by: Admin: 09/05/18 06:55 Dose: 1 each Documented by: Admin: 09/05/18 03:36 Dose: 1 each Documented by: Admin: 09/05/18 02:41 Dose: 1 each Documented by: Admin: 09/05/18 01:25 Dose: 1 each Documented by: Admin: 09/04/18 23:13 Dose: 1 each Documented by: Admin: 09/04/18 21:20 Dose: 1 each Documented by: Admin: 09/04/18 16:29 Dose: 1 each Documented by: Admin: 09/04/18 12:25 Dose: 1 each Documented by: Admin: 09/04/18 12:24 Dose: 1 each Documented by: Admin: 09/03/18 20:50 Dose: 1 each Documented by: Admin: 09/03/18 18:13 Dose: 1 each Documented by: Admin: 09/03/18 11:43 Dose: 1 each Documented by: Admin: 09/03/18 07:41 Dose: 1 each Documented by: Admin: 09/02/18 21:06 Dose: 1 each Documented by: Admin: 09/02/18 17:00 Dose: 1 each Documented by: RUBEN Docusate Sodium (Colace) 100 mg PO BID [facility] Last Admin: 09/05/18 09:01 Dose: 100 mg Documented by: Admin: 09/05/18 09:00 Dose: 100 mg Documented by: Admin: 09/04/18 22:59 Dose: Not Given Documented by: ANNY Non-Admin Reason: Patient Refused Admin: 09/04/18 16:26 Dose: 100 mg Documented by: Admin: 09/03/18 21:36 Dose: 100 mg Documented by: ANNY Gabapentin (Neurontin) 300 mg PO QDAY [facility] Last Admin: 09/05/18 10:41 Dose: 300 mg Documented by: MANNY Glucose (Insta-Glucose) 15 gm PO PRN PRN PRN Reason: Hypoglycemia Hydromorphone HCl (Dilaudid) 0.5 mg IV Q2HP PRN PRN Reason: PAIN LEVEL > 6 Last Admin: 09/03/18 20:48 Dose: 0.5 mg Documented by: ANNY Insulin Glargine (Lantus) 60 unit SQ HS [facility] Insulin Glargine (Lantus) 60 unit SQ HS [facility] Insulin Human Lispro (Humalog) 0 unit SQ ACHS [facility]; Protocol Last Admin: 09/05/18 11:00 Dose: 15 units Documented by: Admin: 09/05/18 09:14 Dose: 18 units Documented by: Admin: 09/05/18 07:57 Dose: 15 units Documented by: MANNY Levothyroxine Sodium (Synthroid) 300 mcg PO QAMAC [facility] Losartan Potassium (Cozaar) 50 mg PO QDAY [facility] Metoclopramide HCl (Reglan) 5 mg PO AC [facility] Naloxone HCl (Narcan) 0.1 mg IV Q2MIN PRN PRN Reason: Opiate Reversal Omeprazole (Prilosec) 20 mg PO ACB [facility] Oxycodone HCl (Roxicodone) 5 mg PO Q4HP PRN PRN Reason: PAIN LEVEL 3-6 Last Admin: 09/03/18 14:50 Dose: 5 mg Documented by: Admin: 09/03/18 10:32 Dose: 5 mg Documented by: [email or web address] Admin: 09/03/18 04:14 Dose: 5 mg Documented by: Admin: 09/03/18 00:12 Dose: 5 mg Documented by: Admin: 09/02/18 16:53 Dose: 5 mg Documented by: [email or web address] Sevelamer Carbonate (Renvela) 1,600 mg PO TIDCC [facility] Sodium Chloride (Saline Flush) 10 ml IV Q8 [facility] Last Admin: 09/05/18 06:56 Dose: Not Given Documented by: ANNY Non-Admin Reason: Given previously Admin: 09/05/18 02:41 Dose: 10 ml Documented by: Admin: 09/05/18 00:46 Dose: 10 ml Documented by: Admin: 09/04/18 22:59 Dose: Not Given Documented by: ANNY Non-Admin Reason: Leaking Admin: 09/04/18 05:40 Dose: Not Given Documented by: [email or web address] Non-Admin Reason: Completed with Dilaudid administration. Admin: 09/03/18 21:37 Dose: 10 ml Documented by: Admin: 09/03/18 18:13 Dose: 10 ml Documented by: [email or web address] Admin: 09/03/18 04:13 Dose: 10 ml Documented by: Admin: 09/02/18 21:06 Dose: 10 ml Documented by: BRYANT Torsemide (Demadex) 40 mg PO DAILY [facility] Warfarin Sodium (Coumadin Per Pharmacy) 1 order PO UD [facility] Assessment and Plan - Narrative A/P Narrative: A: 1. 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 DM2 3. ESRD on HD through Rt arm AVF Recommendations: - Continue IV Cefazolin 2 gm after HD session on Monday, 2 gm after HD session on Monday and 3 gm after HD session on Monday. Patient first day of antibiotic therapy is 09/04/2018 -Start date: 09/04/18 Stop date: 10/04/18 Follow-up labs: CBC, BMP once weekly ESR and CRP every other week Fax labs to [phone], attention Dr. Bustos Follow-up appointment in ID clinic in 3 weeks in 09/25/18 at 2 PM Follow-up with wound care, orthopedics as outpatient. If patient undergoes BKA before 10/04/18, will plan for a 48-hour course of antibiotics after the BKA Chucky Bustos MD Infectious diseases
[2018-09-05] MEDS: SEVELAMER 800 MG TABLET PO SCH ×2 (12:22→17:21)
[2018-09-05] MEDS: METOCLOPRAMIDE 10 MG TABLET PO SCH ×2 (12:22→17:22)
--- NOTE | 2018-09-05 13:03 | Discharge Summary ---
Medical - DS: Prov Patient information: Note initiated : 09/05/18 at 1:00 pm Service Date, if different from initiated Date: [] Patient: Bart Pagan 58 y/o M admitted on 09/02/18 for right foot wound. Chief Complaint: [] Date of admission: 09/02/18 14:00 Discharge date: 09/06/18 Primary care physician: ONEIL Goodson Consults: 08/30/18 12:48 Consult to Physician [CONS] Routine Comment: consult order for 08/23/2018 Consulting Provider: Monica Meek Reason For Exam: Physician to Consult 09/02/18 Consult to Physician [CONS] Stat Comment: Consulting Provider: Sage Echevarria Reason For Exam: Physician to Consult 09/02/18 14:26 Consult to Infectious Disease [CONS] Routine Comment: Consulting Provider: Chucky Bustos Reason For Exam: Physician to Consult Consult to Physician [CONS] Routine Comment: Consulting Provider: Amy Garcia Reason For Exam: Physician to Consult 09/03/18 07:30 Consult to Physician [CONS] Routine Comment: Consulting Provider: Dickson Cameron Reason For Exam: Physician to Consult 09/03/18 07:42 Consult to Physician [CONS] Routine Comment: Consulting Provider: Nishant Love Reason For Exam: Physician to Consult 09/05/18 10:58 Consult to Physician [CONS] Routine Comment: Consulting Provider: Izabela Gray Reason For Exam: Physician to Consult Medical - DS: Meds - Discharge Medications Prescriptions: ceFAZolin [Ancef] 2 gm IV MoWe@1800 #1 vial ceFAZolin [Ancef] 3 gm IV Fr@1800 #1 vial Active and Home Medications: Home Medications insulin detemir (U-100) 100 unit/mL (3 mL) subcutaneous pen 60 unit SUB-Q HS ml 01/15/16 [History Confirmed 09/02/18 Last Taken Unknown] levothyroxine 150 mcg capsule 300 mcg PO ACB 05/27/16 [History Confirmed 09/02/18 Last Taken Unknown] insulin aspart U- 100 100 unit/mL subcutaneous pen 15 unit SUB-Q QPMAC ml 01/02/17 [History Confirmed 09/02/18 Last Taken Unknown] ergocalciferol (vitamin D2) 50,000 unit capsule 50,000 unit PO ORTIZ cap 03/24/17 [History Confirmed 09/02/18 Last Taken Unknown] Accu-Chek 1 each FS ACHS strip 05/01/17 [Rx Confirmed 09/02/18 Last Taken Unknown] Acetaminophen [Tylenol] 650 mg PO Q4-6HP PRN tab 05/01/17 [Rx Confirmed 09/02/18 Last Taken Unknown] allopurinol 100 mg tablet 100 mg PO QDAY #30 tab 05/22/18 [Rx Confirmed 09/02/18 Last Taken Unknown] atorvastatin 40 mg tablet 40 mg PO QDAY 06/07/18 [History Confirmed 09/02/18 Last Taken Unknown] calcitriol 0.5 mcg capsule 0.5 mcg PO MOWEFR cap 06/07/18 [History Confirmed 09/02/18 Last Taken Unknown] sevelamer HCl 800 mg tablet 1,600 mg PO TID tab 06/07/18 [History Confirmed 09/02/18 Last Taken Unknown] warfarin 5 mg tablet 10 mg PO SUTUTHSA 06/07/18 [History Confirmed 09/02/18 Last Taken Unknown] losartan 50 mg tablet 50 mg PO QDAY #30 tab 07/02/18 [Rx Confirmed 09/02/18 Last Taken Unknown] amlodipine 10 mg tablet 10 mg PO QDAY #90 tab 08/20/18 [Rx Confirmed 09/02/18 Last Taken Unknown] gabapentin 300 mg capsule 300 mg PO QDAY 30 Days #30 cap 08/20/18 [Rx Confirmed 09/02/18 Last Taken Unknown] torsemide 20 mg tablet 40 mg PO QDAY #180 tab 08/20/18 [Rx Confirmed 09/02/18 Last Taken Unknown] Warfarin [Coumadin] 15 mg PO MOWEFR 08/23/18 [History Confirmed 09/02/18 Last Taken Unknown] Omeprazole [PriLOSEC] 20 mg PO ACB #20 cap 08/26/18 [Rx Confirmed 09/02/18 Last Taken Unknown] Ondansetron [Zofran ODT] 4 mg SL Q6HP PRN #20 tab 08/26/18 [Rx Confirmed 09/02/18 Last Taken Unknown] Insulin Glargine,Hum.rec.anlog [Basaglar Kwikpen U-100] 60 unit SQ DAILY 09/02/18 [History Confirmed 09/02/18 Last Taken Unknown] Metoclopramide [Reglan] 5 mg PO AC 09/02/18 [History Confirmed 09/02/18 Last Taken Unknown] Medical - DS: Hosp Hospital course: Mr. Pagan is a 58 year old M Mr. Pagan is a 58 year old M with history of diabetes, end-stage renal disease on dialysis, he was recently discharged from this facility where he was admitted for nausea vomiting. The patient notes that there was a small amount of ulceration or opening in his right lower extremity at that time, he continued to work since the time of her discharge. Yesterday noticed that there was significant swelling erythema on his right foot. He noted that he had low-grade temperatures as well as some chills. Given that he has had a nasty foot infection in the past decided to come in today for further evaluation, In the ER on presentation he was afebrile 98.8, heart rate 88 blood pressure 121/69 respirations 12 saturating 94% on 2 L. The wound showed opening and there was significant amount of pus coming out, there was cellulitis surrounding this wound. Dr. Echevarria orthopedic surgeon enterprise sales person was consulted by the ER who took the patient to the surgery and drain the wound. The plan is to have Dr. Love evaluate the patient later for further revision surgeries as needed. Medicine was asked to admit the patient given extensive medical comorbidities. On my evaluation the patient noted that he also has been having some pain in his left knee, this has been there intermittently on and off for many weeks however for the last week or so has been quite worse. On my eval there was also some effusion in the left knee and the knee was tender to touch. Patient does have a history of gout. 09/03 Patient seen and examined, no acute overnight events no complaints or concerns. The left knee is still bothering him. We tapped the knee yesterday it is negative for any inflammation or acute infection most likely osteoarthritis related pain. Plan for steroid injection today. Blood cultures are positive, echocardiogram ordered. Wound care and infectious disease nephrology and orthopedics are following the patient. Blood cultures and wound cultures are emesis staph. Vancomycin and Zosyn has been discontinued patient has been started on Ancef 09/04 Pt seen examined, no acute overnight events. Pt s/p steroid inj in the knee. He has no new complaints or concerns Plan to review dressing changse with wound care, continue abx, plan for d/c to snf tomorrow if remains stable and wound care needs be met there. 09/05 Pt seen examined, no acute overnight issues, no new complaints or concerns. Glucose level elevated likely due to steroid injection as well as not resume home dose as glucose was lower initially resume home insulin dose, monitor gliucose levels Pt to get dialysis today, stable for d/c plan for SNF placement in AM Discharge diagnosis: Osteomyelitis end-stage renal disease diabetes hypertension diabetic gastro - Time Spent with Patient Total time spent providing and/or coordinating discharge services: Greater than 30 minutes Medical - DS: Exam - Constitutional Vitals: Vital Signs Temp Pulse Pulse Resp BP BP Pulse Ox 09/05/18 12:40 80 137/83 09/05/18 12:10 97 F 80 144/82 09/05/18 07:02 97.0 F 84 16 132/81 96 09/05/18 03:00 97.8 F 87 16 146/76 95 09/05/18 00:00 97.5 F 94 H 16 154/88 95 09/04/18 19:45 97.9 F 85 16 146/80 97 09/04/18 15:50 97.9 F 20 134/68 97 Intake and Output 09/04/18 09/05/18 09/05/18 21:59 05:59 13:59 Intake Total 300 / 300 Output Total 300 / 450 150 / 450 100 / 100 Balance -300 / -150 150 / -150 -100 / -100 Intake: Oral 300 / 300 Output: Void Amount 300 / 450 150 / 450 100 / 100 Other: Meal Lunch Percent of Meal Consumed 75% Urine Appearance Clear Urine Color Bright Yellow Weight 105.233 kg Medical - DS: Data Labs on day of discharge: Labs from last 24 hours 09/05/18 09/05/18 09/05/18 05:28 05:27 05:27 WBC 11.5 H RBC 3.12 L Hgb 10.3 L Hct 32.0 L MCV 102.6 H MCH 32.9 MCHC 32.1 RDW 15.3 H Plt Count 365 MPV 9.3 Gran % 93.9 H Lymph % (Auto) 4.8 L [place] % (Auto) 1.3 Eos % (Auto) 0 Baso % (Auto) 0 Gran # 10.8 H Lymph # (Auto) 0.6 L [place] # (Auto) 0.1 Eos # (Auto) 0 Baso # (Auto) 0 PT 26.3 H INR 2.5 H Sodium 132 L Potassium 4.2 Chloride 91 L Carbon Dioxide 27 Anion Gap 14.0 BUN 48 H Creatinine 3.7 H GFR Calculation 17 Glucose 342 H Uric Acid 6.0 Calcium 8.2 L Phosphorus 2.7 Magnesium 2.1 Total Bilirubin 0.3 Direct Bilirubin < 0.2 GGT 25 AST 13 ALT 9 Alkaline Phosphatase 85 Lactate Dehydrogenase 187 Total Protein 6.9 Albumin 2.7 L Globulin 4.2 H Albumin/Globulin Ratio 0.6 L Triglycerides 164 H Preliminary micro results at discharge 09/02/18 13:48 Anaerobic Culture - Preliminary Wound - Not Given 09/02/18 13:48 Anaerobic Culture - Preliminary Wound - Not Given 09/04/18 05:20 Blood Culture - Preliminary Blood 09/04/18 05:15 Blood Culture - Preliminary Blood 09/02/18 12:39 Blood Culture - Preliminary Blood Staphylococcus aureus 09/02/18 12:50 Blood Culture - Preliminary Blood Gram positive cocci Medical - DS: A/P - Patient/Caregiver Discharge Instructions Activity: increase activity as tolerated Diet: Renal/Consistent Carbs Additional Instructions: CBC, BMP once weekly ESR and CRP every other week Fax labs to [phone], attention Dr. Bustos Follow-up appointment in ID clinic in 3 weeks in 09/25/18 at 2 PM INR check in 2 days, adjust per pharmacy Prescriptions: ceFAZolin [Ancef] 2 gm IV MoWe@1800 #1 vial ceFAZolin [Ancef] 3 gm IV Fr@1800 #1 vial - Follow up Plan Follow up with: Chucky Bustos MD [Physician] - 09/25/18 1:45 pm Wendy Tamayo ARNP [Primary Care Provider] - Amy Garcia MD [Physician] - Dickson Cameron MD [Physician] - Nishant Love MD [Physician] - Disposition: Xfer SNF Prognosis: Fair Rehab Potential: Fair I certify that the patient requires SNF services: Yes Overall status at discharge: patient is progressing back to baseline Medical - DS: Qual - VTE Deep Vein Thrombosis/Pulmonary Embolism Present on Admission: No
--- NOTE | 2018-09-05 13:28 | Internal Med Progress Note ---
Medical - PN: Subj Patient information: Note initiated : 09/05/18 at 1:24 pm Service Date, if different from initiated Date: [] Patient: Bart Pagan a 58 y/o M admitted on 09/02/18 for right foot wound. Chief Complaint: [] Interval history: Mr. Pagan is a 58 year old M with history of diabetes, end-stage renal disease on dialysis, he was recently discharged from this facility where he was admitted for nausea vomiting. The patient notes that there was a small amount of ulceration or opening in his right lower extremity at that time, he continued to work since the time of her discharge. Yesterday noticed that there was significant swelling erythema on his right foot. He noted that he had low-grade temperatures as well as some chills. Given that he has had a nasty foot infection in the past decided to come in today for further evaluation, In the ER on presentation he was afebrile 98.8, heart rate 88 blood pressure 121/69 respirations 12 saturating 94% on 2 L. The wound showed opening and there was significant amount of pus coming out, there was cellulitis surrounding this wound. Dr. Echevarria orthopedic surgeon telephone order clerk room service was consulted by the ER who took the patient to the surgery and drain the wound. The plan is to have Dr. Love evaluate the patient later for further revision surgeries as needed. Medicine was asked to admit the patient given extensive medical comorbidities. On my evaluation the patient noted that he also has been having some pain in his left knee, this has been there intermittently on and off for many weeks however for the last week or so has been quite worse. On my eval there was also some effusion in the left knee and the knee was tender to touch. Patient does have a history of gout. 09/03 Patient seen and examined, no acute overnight events no complaints or concerns. The left knee is still bothering him. We tapped the knee yesterday it is negative for any inflammation or acute infection most likely osteoarthritis related pain. Plan for steroid injection today. Blood cultures are positive, echocardiogram ordered. Wound care and infectious disease nephrology and orthopedics are following the patient. Blood cultures and wound cultures are emesis staph. Vancomycin and Zosyn has been discontinued patient has been started on Ancef 09/04 Pt seen examined, no acute overnight events. Pt s/p steroid inj in the knee. He has no new complaints or concerns Plan to review dressing changse with wound care, continue abx, plan for d/c to snf tomorrow if remains stable and wound care needs be met there. 09/05 Pt seen examined, no acute overnight issues, no new complaints or concerns. Glucose level elevated likely due to steroid injection as well as not resume home dose as glucose was lower initially resume home insulin dose, monitor gliucose levels Pt to get dialysis today, stable for d/c plan for SNF placement in AM Pertinent ROS: Denies headache, dizziness Denies chest pain, palpitations Denies cough or shortness of breath Denies abdominal pain, nausea or vomiting. - Constitutional Vitals: Vital Signs Temp Pulse Resp BP Pulse Ox 97 F 69 16 136/77 96 09/05/18 12:10 09/05/18 13:12 09/05/18 07:02 09/05/18 13:12 09/05/18 07:02 Period Temp Pulse Resp BP Sys/Mancini Pulse Ox Last 24 Hr 97 F-97.9 F 69-94 16-20 132-154/68-88 95-97 Intake and Output 09/04/18 09/05/18 09/05/18 21:59 05:59 13:59 Intake Total 300 / 300 Output Total 300 / 450 150 / 450 100 / 100 Balance -300 / -150 150 / -150 -100 / -100 Weight 232 lb Intake & Output: Intake & Output 09/04/18 09/05/18 09/05/18 21:59 05:59 13:59 Intake Total 300 / 300 Output Total 300 / 450 150 / 450 100 / 100 Balance -300 / -150 150 / -150 -100 / -100 Weight 232 lb Intake: Oral 300 / 300 Output: Void Amount 300 / 450 150 / 450 100 / 100 Other: Meal Lunch Percent of Meal Consumed 75% Urine Appearance Clear Urine Color Bright Yellow Exam: Constitutional; Afebrile, cooperative, alert, not in distress. Respiratory system: Air Entry equal on both sides, No crackles or wheezing, no rhonchi. CVS- Rate rhythm regular, S1,S2 heard, no gallop, no rub. Abdomen- Soft nontender abdomen, no organomegaly, no tenderness, no guarding or rigidity, COMMODITY MANAGER- AOOx3, moving all extremities, no gross focal deficit noted. Medical - PN: Obj Da - Labs CBC & Chem 7: 09/05/18 05:27 09/05/18 05:27 Labs: Abnormal Lab Results 09/05/18 09/05/18 09/05/18 05:28 05:27 05:27 WBC 11.5 H RBC 3.12 L Hgb 10.3 L Hct 32.0 L MCV 102.6 H RDW 15.3 H Gran % 93.9 H Lymph % (Auto) 4.8 L Gran # 10.8 H Lymph # (Auto) 0.6 L PT 26.3 H INR 2.5 H Sodium 132 L Chloride 91 L BUN 48 H Creatinine 3.7 H Glucose 342 H Calcium 8.2 L Phosphorus Albumin 2.7 L Globulin 4.2 H Albumin/Globulin Ratio 0.6 L Triglycerides 164 H Synovial Neutrophils 09/04/18 09/04/18 09/04/18 05:15 05:15 05:15 WBC RBC 2.90 L Hgb 9.6 L Hct 29.7 L MCV 102.5 H RDW 15.5 H Gran % 82.5 H Lymph % (Auto) 9.5 L Gran # 8.1 H Lymph # (Auto) 0.9 L PT 22.8 H INR 2.0 H Sodium 132 L Chloride 90 L BUN 23 H Creatinine 2.8 H Glucose 187 H Calcium Phosphorus 2.6 L Albumin 2.9 L Globulin 4.3 H Albumin/Globulin Ratio 0.7 L Triglycerides 211 H Synovial Neutrophils 09/03/18 09/03/18 09/03/18 04:50 04:50 04:50 WBC RBC 2.55 L Hgb 8.6 L Hct 26.0 L MCV 101.7 H RDW 15.6 H Gran % 82.5 H Lymph % (Auto) 10.0 L Gran # 8.7 H Lymph # (Auto) 1.1 L PT 26.4 H INR 2.5 H Sodium 132 L Chloride 91 L BUN 35 H Creatinine 4.6 H Glucose 110 H Calcium 8.1 L Phosphorus Albumin 2.7 L Globulin Albumin/Globulin Ratio 0.8 L Triglycerides Synovial Neutrophils 09/02/18 09/02/18 09/02/18 16:23 13:29 12:39 WBC RBC Hgb Hct MCV RDW Gran % Lymph % (Auto) Gran # Lymph # (Auto) PT 21.5 H INR 1.9 H Sodium 130 L Chloride 89 L BUN 28 H Creatinine 4.2 H Glucose 174 H Calcium 8.3 L Phosphorus Albumin 3.0 L Globulin 4.1 H Albumin/Globulin Ratio 0.7 L Triglycerides Synovial Neutrophils 79 H Meds: Medications Acetaminophen (Tylenol) 650 mg PO Q6HP PRN PRN Reason: PAIN/FEVER > 101 Albuterol Sulfate (Ventolin) 2.5 mg NEB Q2HP PRN PRN Reason: Shortness Of Breath Allopurinol (Zyloprim) 100 mg PO QDAY [facility] Last Admin: 09/05/18 10:41 Dose: 100 mg Documented by: Amlodipine Besylate (Norvasc) 10 mg PO QDAY [facility] Atorvastatin Calcium (Lipitor) 40 mg PO HS [facility] Calcitriol (Rocaltrol) 0.5 mcg PO MoWeFr@0900 [facility] Last Admin: 09/05/18 10:41 Dose: 0.5 mcg Documented by: Cefazolin Sodium (Ancef) 2 gm IV MoWe@1800 [facility] Last Admin: 09/03/18 20:00 Dose: 2 gm Documented by: Cefazolin Sodium (Ancef) 3 gm IV Fr@1800 [facility] Dextrose (Dextrose 50%) 0 ml IV UD PRN PRN Reason: Hypoglycemia Diagnostic Test (Pha) (Accu-Chek) 1 each FS [facility] Last Admin: 09/05/18 10:52 Dose: 1 each Documented by: Docusate Sodium (Colace) 100 mg PO BID [facility] Last Admin: 09/05/18 09:01 Dose: 100 mg Documented by: Gabapentin (Neurontin) 300 mg PO QDAY [facility] Last Admin: 09/05/18 10:41 Dose: 300 mg Documented by: Glucose (Insta-Glucose) 15 gm PO PRN PRN PRN Reason: Hypoglycemia Hydromorphone HCl (Dilaudid) 0.5 mg IV Q2HP PRN PRN Reason: PAIN LEVEL > 6 Last Admin: 09/03/18 20:48 Dose: 0.5 mg Documented by: Insulin Glargine (Lantus) 60 unit SQ HS [facility] Insulin Glargine (Lantus) 60 unit SQ HS [facility] Insulin Human Lispro (Humalog) 0 unit SQ [facility]; Protocol Last Admin: 09/05/18 11:00 Dose: 15 units Documented by: Levothyroxine [facility] ([facility]throid) [facility] Losartan Potassium (Cozaar) 50 mg PO QDAY [facility] Metoclopramide HCl (Reglan) 5 mg PO AC [facility] Last Admin: 09/05/18 12:22 Dose: Not Given Documented by: Naloxone HCl (Narcan) 0.1 mg IV Q2MIN PRN PRN Reason: Opiate Reversal Omeprazole (Prilosec) 20 mg PO ACB [facility] Oxycodone HCl (Roxicodone) 5 mg PO Q4HP PRN PRN Reason: PAIN LEVEL 3-6 Last Admin: 09/03/18 14:50 Dose: 5 mg Documented by: Sevelamer Carbonate (Renvela) 1,600 mg PO TIDCC [facility] Last Admin: 09/05/18 12:22 Dose: Not Given Documented by: Sodium Chloride (Saline Flush) 10 ml IV Q8 [facility] Last Admin: 09/05/18 06:56 Dose: Not Given Documented by: Torsemide (Demadex) 40 mg PO DAILY [facility] Warfarin Sodium (Coumadin Per Pharmacy) 1 order PO UD [facility] Medical - PN: A/P - Time Spent With Patient Total time spent is greater than 50% in coordination of care (as documented) at patient's floor/unit and/or counseling patient: - Narrative A/P Narrative: A/P Cellulitis with Osteomyelitis , Right foot -MSSA bactermia, and MSSA from the wound, Echo is negative, repeat cultures negative, pt on ancph 2gm monday, monday and 3 gms monday after HD. total 4 weeks planned for now. Dr Love is on vacation, further plan of care will be after he returns. Outpatient follow up with Infectious disease 3 weeks and Wound care in 3-5 days planned ESRD on HD -continue scheduled DM as per nephrology DM -uncontrolled glucose, resume home medications, ssi insulin HTN/HLD -bp stable, resume home medication. Gout -allopurinol to continue at home dose. Knee aspirate was negative for any crystals Knee pain, left -likely OA , s/p steroid inj, doing well, fluid analysis is negative. Diabetic Gastroparesis =stable no issues this admit Atrial fibrillation -rate stable, continue anticoagulation with coumadin Hypothyroidsim -continue home dose of levothyroxine. DVT on coumadin Full code Carb consistent/ renal diet. Medical - PN: Qual - VTE Deep Vein Thrombosis/Pulmonary Embolism Present on Admission: No
[2018-09-05] MEDS ORDERED: WARFARIN 10 MG TABLET PO ONE (14:00)
[2018-09-05] MEDS: ceFAZolin 1 GM VIAL IV SCH (17:23)
[2018-09-05] MEDS ORDERED: INSULIN GLARGINE, HUMAN 1 UNIT/0.01 ML SQ SCH (21:00)
[2018-09-05] MEDS: ATORVASTATIN 20 MG TABLET PO SCH (21:32)
[2018-09-05] MEDS: INSULIN GLARGINE, HUMAN 1 UNIT/0.01 ML SQ SCH (22:54)
[2018-09-06] MEDS: 0.9 % SODIUM CHLORIDE 10 ML SYRINGE IV SCH ×4 (04:23→21:41)
[2018-09-06 06:31] LABS: Basophils # (Auto) 0 K/mcL (0.0-0.3); Basophils % (Auto) 0.1 % (0.0-2.0); Eosinophils # (Auto) 0 K/mcL (0.0-0.7); Eosinophils % (Auto) 0 % (0.0-7.0); Lymphocytes # (Auto) 1.1 K/mcL (1.5-4.8); Mean Cell Volume 100.9 fL (80.0-100.0); Mean Corpuscular HGB Conc 33.2 g/dL (31.0-36.0); Monocytes # (Auto) 0.3 K/mcL (0.1-0.9); Monocytes % (Auto) 1.9 % (1.0-12.0); Platelet Count 411 K/mcL (140-440); RBC 2.83 M/mcL (4.50-5.90); Red Cell Distribution Width 15.6 % (11.5-14.5)
--- NOTE | 2018-09-06 07:06 | Internal Med Progress Note ---
Medical - PN: Subj Patient information: Note initiated : 09/06/18 at 7:04 am Service Date, if different from initiated Date: [] Patient: Bart Pagan a 58 y/o M admitted on 09/02/18 for right foot wound. Chief Complaint: [] Interval history: Mr. Pagan is a 58 year old M with history of diabetes, end-stage renal disease on dialysis, he was recently discharged from this facility where he was admitted for nausea vomiting. The patient notes that there was a small amount of ulceration or opening in his right lower extremity at that time, he continued to work since the time of her discharge. Yesterday noticed that there was significant swelling erythema on his right foot. He noted that he had low-grade temperatures as well as some chills. Given that he has had a nasty foot infection in the past decided to come in today for further evaluation, In the ER on presentation he was afebrile 98.8, heart rate 88 blood pressure 121/69 respirations 12 saturating 94% on 2 L. The wound showed opening and there was significant amount of pus coming out, there was cellulitis surrounding this wound. Dr. Echevarria orthopedic surgeon sale professional digital marketing was consulted by the ER who took the patient to the surgery and drain the wound. The plan is to have Dr. Love evaluate the patient later for further revision surgeries as needed. Medicine was asked to admit the patient given extensive medical comorbidities. On my evaluation the patient noted that he also has been having some pain in his left knee, this has been there intermittently on and off for many weeks however for the last week or so has been quite worse. On my eval there was also some effusion in the left knee and the knee was tender to touch. Patient does have a history of gout. 09/03 Patient seen and examined, no acute overnight events no complaints or concerns. The left knee is still bothering him. We tapped the knee yesterday it is negative for any inflammation or acute infection most likely osteoarthritis related pain. Plan for steroid injection today. Blood cultures are positive, echocardiogram ordered. Wound care and infectious disease nephrology and orthopedics are following the patient. Blood cultures and wound cultures are emesis staph. Vancomycin and Zosyn has been discontinued patient has been started on Ancef 09/04 Pt seen examined, no acute overnight events. Pt s/p steroid inj in the knee. He has no new complaints or concerns Plan to review dressing changse with wound care, continue abx, plan for d/c to snf tomorrow if remains stable and wound care needs be met there. 09/05 Pt seen examined, no acute overnight issues, no new complaints or concerns. Glucose level elevated likely due to steroid injection as well as not resume home dose as glucose was lower initially resume home insulin dose, monitor gliucose levels Pt to get dialysis today, stable for d/c plan for SNF placement in AM 09/06 No overnight events. No new complaints. Had a bump in WBCs but afebrile does not appear toxic and does not feel any worse and did have a steroid injection the other day. Review of Systems: denies headache/fever/chills/nausea/vomiting/chest or abdominal pain/cough/dyspnea/diarrhea. Otherwise see above. - Constitutional Vitals: Vital Signs Temp Pulse Resp BP Pulse Ox 97.7 F 71 12 130/79 96 09/06/18 02:49 09/06/18 02:49 09/06/18 02:49 09/06/18 02:49 09/06/18 02:49 Period Temp Pulse Resp BP Sys/Mancini Pulse Ox Last 24 Hr 97 F-98.3 F 60-99 12-16 110-145/63-89 94-96 Intake and Output 09/05/18 09/06/18 09/06/18 21:59 05:59 13:59 Intake Total 175 / 175 Output Total 1050 / 1300 150 / 1300 Balance -1050 / -1125 25 / -1125 Weight 104.326 kg Intake & Output: Intake & Output 09/05/18 09/06/18 09/06/18 21:59 05:59 13:59 Intake Total 175 / 175 Output Total 1050 / 1300 150 / 1300 Balance -1050 / -1125 25 / -1125 Weight 104.326 kg Intake: Oral 175 / 175 Output: Void Amount 250 / 500 150 / 500 Hemodialysis UF 800 / 800 Other: Urine Appearance Clear Urine Color Straw Urine Odor Normal Stool Size Moderate Stool Color Brown Stool Consistency Loose Exam: General: Alert, Awake, No acute Distress, obese Eyes/N/T: EOMI, Head/Neck: neck supple CV: regular today, No murmurs, Pulm: Clear b/l, no wheezing/rhonchi/rales Abd: soft, nontender, +BS x4 Ext: no clubbing/cyanosis, right foot wrapped in MOISES Neuro: Alert, no focal deficits, moves all extremities Skin: warm/dry Medical - PN: Obj Da - Labs CBC & Chem 7: 09/06/18 05:39 09/06/18 05:38 Labs: Abnormal Lab Results 09/06/18 09/06/18 09/05/18 05:39 05:38 05:28 WBC 15.7 H RBC 2.83 L Hgb 9.5 L Hct 28.6 L MCV 100.9 H RDW 15.6 H Gran % 91.0 H Lymph % (Auto) 7.0 L Gran # 14.3 H Lymph # (Auto) 1.1 L PT 26.3 H 26.3 H INR 2.5 H 2.5 H Sodium Chloride BUN Creatinine Glucose Calcium Phosphorus Albumin Globulin Albumin/Globulin Ratio Triglycerides 09/05/18 09/05/18 09/04/18 05:27 05:27 05:15 WBC 11.5 H RBC 3.12 L Hgb 10.3 L Hct 32.0 L MCV 102.6 H RDW 15.3 H Gran % 93.9 H Lymph % (Auto) 4.8 L Gran # 10.8 H Lymph # (Auto) 0.6 L PT 22.8 H INR 2.0 H Sodium 132 L Chloride 91 L BUN 48 H Creatinine 3.7 H Glucose 342 H Calcium 8.2 L Phosphorus Albumin 2.7 L Globulin 4.2 H Albumin/Globulin Ratio 0.6 L Triglycerides 164 H 09/04/18 09/04/18 09/03/18 05:15 05:15 04:50 WBC RBC 2.90 L Hgb 9.6 L Hct 29.7 L MCV 102.5 H RDW 15.5 H Gran % 82.5 H Lymph % (Auto) 9.5 L Gran # 8.1 H Lymph # (Auto) 0.9 L PT 26.4 H INR 2.5 H Sodium 132 L Chloride 90 L BUN 23 H Creatinine 2.8 H Glucose 187 H Calcium Phosphorus 2.6 L Albumin 2.9 L Globulin 4.3 H Albumin/Globulin Ratio 0.7 L Triglycerides 211 H Meds: Medications Acetaminophen (Tylenol) 650 mg PO Q6HP PRN PRN Reason: PAIN/FEVER > 101 Albuterol Sulfate (Ventolin) 2.5 mg NEB Q2HP PRN PRN Reason: Shortness Of Breath Allopurinol (Zyloprim) 100 mg PO QDAY [facility] Last Admin: 09/05/18 10:41 Dose: 100 mg Documented by: Amlodipine Besylate (Norvasc) 10 mg PO QDAY [facility] Atorvastatin Calcium (Lipitor) [address] [facility] Last Admin: 09/05/18 21:32 Dose: 40 mg Documented by: Calcitriol (Rocaltrol) 0.5 mcg PO MoWeFr@0900 [facility] Last Admin: 09/05/18 10:41 Dose: 0.5 mcg Documented by: Cefazolin Sodium (Ancef) 2 gm IV MoWe@1800 [facility] Last Admin: 09/05/18 17:23 Dose: 2 gm Documented by: Cefazolin Sodium (Ancef) 3 gm IV Fr@1800 [facility] Dextrose (Dextrose 50%) 0 ml IV UD PRN PRN Reason: Hypoglycemia Diagnostic Test (Pha) (Accu-Chek) 1 each FS [facility] Last Admin: 09/05/18 21:29 Dose: 1 each Documented by: Docusate Sodium (Colace) 100 mg PO BID [facility] Last Admin: 09/05/18 22:54 Dose: Not Given Documented by: Gabapentin (Neurontin) 300 mg PO QDAY [facility] Last Admin: 09/05/18 10:41 Dose: 300 mg Documented by: Glucose (Insta-Glucose) 15 gm PO PRN PRN PRN Reason: Hypoglycemia Hydromorphone HCl (Dilaudid) 0.5 mg IV Q2HP PRN PRN Reason: PAIN LEVEL > 6 Last Admin: 09/03/18 20:48 Dose: 0.5 mg Documented by: Insulin Glargine (Lantus) [address] [facility] Last Admin: 09/05/18 22:54 Dose: Not Given Documented by: Insulin Human Lispro (Humalog) 0 unit SQ [facility]; Protocol Last Admin: 09/05/18 21:50 Dose: 12 units Documented by: [facility]othyroxine [facility] ([facility]) [facility] Losartan Potassium (Cozaar) 50 mg PO QDAY [facility] Metoclopramide HCl (Reglan) 5 mg PO [facility] Last Admin: 09/05/18 17:22 Dose: 5 mg Documented by: Naloxone HCl (Narcan) 0.1 mg IV Q2MIN PRN PRN Reason: Opiate Reversal Omeprazole (Prilosec) 20 mg PO ACB [facility] Oxycodone HCl (Roxicodone) 5 mg PO Q4HP PRN PRN Reason: PAIN LEVEL 3-6 Last Admin: 09/03/18 14:50 Dose: 5 mg Documented by: Sevelamer Carbonate (Renvela) 1,600 mg PO TIDCC [facility] Last Admin: 09/05/18 17:21 Dose: 1,600 mg Documented by: Sodium Chloride (Saline Flush) 10 ml IV Q8 [facility] Last Admin: 09/06/18 05:59 Dose: 10 ml Documented by: Torsemide (Demadex) 40 mg PO DAILY [facility] Warfarin Sodium (Coumadin Per Pharmacy) 1 order PO UD [facility] Medical - PN: A/P - Time Spent With Patient Total time spent is greater than 50% in coordination of care (as documented) at patient's floor/unit and/or counseling patient: - Narrative A/P Narrative: A/P Cellulitis with Osteomyelitis , Right foot -MSSA bactermia, and MSSA from the wound, Echo is negative, repeat cultures negative, pt on ancph 2gm monday, monday and 3 gms monday after HD. total 4 weeks planned for now. Dr Love is on vacation, further plan of care will be after he returns. Outpatient follow up with Infectious disease 3 weeks and Wound care in 3-5 days planned ESRD on HD -continue scheduled DM as per nephrology DM -uncontrolled glucose, resume home medications, ssi insulin HTN/HLD -bp stable, resume home medication. Gout -allopurinol to continue at home dose. Knee aspirate was negative for any christopher ls Knee pain, left -likely OA , s/p steroid inj, doing well, fluid analysis is negative. Diabetic Gastroparesis =stable no issues this admit Atrial fibrillation -rate stable, continue anticoagulation with coumadin Hypothyroidsim -continue home dose of levothyroxine. DVT on coumadin Full code Carb consistent/ renal diet. Medical - PN: Qual - VTE Deep Vein Thrombosis/Pulmonary Embolism Present on Admission: No
[2018-09-06 07:18] LABS: ALT/SGPT 7 U/l (0-40); Albumin 2.8 gm/dL (3.2-5.2); Albumin/Globulin Ratio 0.8 (1.0-2.3); Alkaline Phosphatase 83 U/L (39-117); Bilirubin,Direct < 0.2 mg/dL (0.0-0.3); Blood Urea Nitrogen 41 mg/dl (6-20); Gamma Glutamyl Transpeptidase 23 U/L (8-61)
[2018-09-06] MEDS: METOCLOPRAMIDE 10 MG TABLET PO SCH ×3 (07:40→17:37)
[2018-09-06] MEDS: SEVELAMER 800 MG TABLET PO SCH ×3 (07:40→17:37)
[2018-09-06] MEDS: LEVOTHYROXINE 150 MCG TABLET PO SCH (07:40)
[2018-09-06] MEDS: OMEPRAZOLE 20 MG CAPSULE PO SCH (07:41)
[2018-09-06] MEDS: INSULIN LISPRO 1 UNIT/0.01 ML UNIT SQ SCH ×4 (08:11→21:40)
[2018-09-06] MEDS: TORSEMIDE 10 MG TABLET PO SCH (08:11)
[2018-09-06] MEDS: GABAPENTIN 300 MG CAPSULE PO SCH (08:12)
[2018-09-06] MEDS: LOSARTAN 50 MG TABLET PO SCH (08:12)
[2018-09-06] MEDS: amLODIPine 10 MG TABLET PO SCH (08:12)
[2018-09-06] MEDS: ALLOPURINOL 100 MG TABLET PO SCH (08:12)
[2018-09-06] MEDS: DOCUSATE SODIUM 100 MG CAPSULE PO SCH ×2 (08:14→21:42)
[2018-09-06] MEDS: GENTAMICIN SULFATE 40 MG, CLINDAMYCIN 300 MG, BACITRACIN 25,000 UNIT in SODIUM CHLORIDE... IRR SCH ×2 (11:48→21:42)
[2018-09-06] MEDS ORDERED: WARFARIN 10 MG TABLET PO ONE (14:00)
--- NOTE | 2018-09-06 14:30 | General Surgery Progress Note ---
Subjective Patient reports: other (Wound Care follow up. Patient seen on morning rounds with Brigitte ALDRICHtransfer controller Nurse. ) Narrative: Note initiated : 09/06/18 at 2:26 pm Service Date, if different from initiated Date: [] Patient: Bart Pagan 58 y/o M admitted on 09/02/18 for right foot wound. Chief Complaint: [] Objective Temp Pulse Resp BP Pulse Ox 97.4 F 72 20 112/61 97 09/06/18 12:00 09/06/18 12:00 09/06/18 12:00 09/06/18 12:00 09/06/18 12:00 - Additional Data Intake & Output - Last 24 hours: Intake & Output 09/04/18 09/05/18 09/06/18 09/07/18 05:59 05:59 05:59 05:59 Intake Total 590 / 590 300 / 300 175 / 175 240 / 240 Output Total 450 / 450 450 / 450 1300 / 1300 150 / 150 Balance 140 / 140 -150 / -150 -1125 / -1125 90 / 90 Weight 230 lb 8 oz 232 lb 230 lb 09/06/18 14:27 No acute internal changes in STONEY. L/E RIGHT foot surgical wound site is clean. C/S MSSA. On IV Cephalosporin antibiotics. Flap edema has resolved. NO purulence. No odor and NO drainage. Wound base is granulating well. Wide open and adhering flaps Patient ambulated today with weight bearing on Right heel. Xeroform dressing was removed. Wound was SELECTIVELY DEBRIDED. - Labs 09/06/18 05:39 09/06/18 05:38 Diabetes panel 09/06/18 Range/Units 05:38 Sodium 133 (133-145) mmol/L Potassium 3.9 (3.3-5.1) mmol/L Chloride 93 L (96-108) mmol/L Carbon Dioxide 27 (22-30) mmol/L BUN 41 H (6-20) mg/dl Creatinine 2.8 H (0.7-1.2) mg/dl Glucose 244 H (70-105) mg/dL Calcium 8.2 L (8.6-10.4) mg/dl AST 16 (0-37) U/l ALT 7 (0-40) U/l Alkaline Phosphatase 83 (39-117) U/L Total Protein 6.4 (5.9-8.4) gm/dL Albumin 2.8 L (3.2-5.2) gm/dL Triglycerides 158 H (<150) mg/dl Calcium panel 09/06/18 Range/Units 05:38 Calcium 8.2 L (8.6-10.4) mg/dl Phosphorus 3.0 (2.7-4.5) mg/dL Albumin 2.8 L (3.2-5.2) gm/dL Pituitary panel 09/06/18 Range/Units 05:38 Sodium 133 (133-145) mmol/L Potassium 3.9 (3.3-5.1) mmol/L Chloride 93 L (96-108) mmol/L Carbon Dioxide 27 (22-30) mmol/L BUN 41 H (6-20) mg/dl Creatinine 2.8 H (0.7-1.2) mg/dl Glucose 244 H (70-105) mg/dL Calcium 8.2 L (8.6-10.4) mg/dl Adrenal panel 09/06/18 Range/Units 05:38 Sodium 133 (133-145) mmol/L Potassium 3.9 (3.3-5.1) mmol/L Chloride 93 L (96-108) mmol/L Carbon Dioxide 27 (22-30) mmol/L BUN 41 H (6-20) mg/dl Creatinine 2.8 H (0.7-1.2) mg/dl Glucose 244 H (70-105) mg/dL Calcium 8.2 L (8.6-10.4) mg/dl Total Bilirubin 0.2 (0.0-1.0) mg/dL AST 16 (0-37) U/l ALT 7 (0-40) U/l Alkaline Phosphatase 83 (39-117) U/L Total Protein 6.4 (5.9-8.4) gm/dL Albumin 2.8 L (3.2-5.2) gm/dL Assessment and Plan (1) Foot infection Problem details: Status: Acute Current Visit: No (2) Sepsis affecting skin Problem details: NECROTIZING skin and soft tissue infection. SEPSIS Uncontrolled diabetes, Anemia, CRF PLAN: HBOT Now later OR debridement / lavage and deep tissue biopsies and cultures. Status: Acute Current Visit: No (3) Sepsis Status: Acute Current Visit: Yes - Narrative A/P Narrative: Assessment: Satisfactory progress from wound care point of view. WOUND was cleaned with NS and selectively debrided with tile picker and scissors. Plan: See new wound care orders. If discharged, follow up a the wound center in ONE week. - Time Spent With Patient Total time spent is greater than 50% in coordination of care (as documented) at patient's floor/unit and/or counseling patient:
[2018-09-06] MEDS: ATORVASTATIN 20 MG TABLET PO SCH (21:41)
[2018-09-06] MEDS: INSULIN GLARGINE, HUMAN 1 UNIT/0.01 ML SQ SCH (21:41)
[2018-09-07 06:32] LABS: Basophils # (Auto) 0 K/mcL (0.0-0.3); Basophils % (Auto) 0.2 % (0.0-2.0); Eosinophils # (Auto) 0.1 K/mcL (0.0-0.7); Eosinophils % (Auto) 0.5 % (0.0-7.0); Granulocytes % (Auto) 87.5 % (38.0-78.0); Lymphocytes # (Auto) 1.3 K/mcL (1.5-4.8); Lymphocytes % (Auto) 9.5 % (15.5-49.0); Mean Cell Volume 101.6 fL (80.0-100.0); Mean Corpuscular HGB Conc 32.5 g/dL (31.0-36.0); Monocytes # (Auto) 0.3 K/mcL (0.1-0.9); Monocytes % (Auto) 2.3 % (1.0-12.0); Platelet Count 440 K/mcL (140-440); RBC 2.85 M/mcL (4.50-5.90); Red Cell Distribution Width 15.7 % (11.5-14.5)
[2018-09-07] MEDS: 0.9 % SODIUM CHLORIDE 10 ML SYRINGE IV SCH (06:33)
[2018-09-07 07:04] LABS: ALT/SGPT < 5 U/l (0-40); Albumin 2.9 gm/dL (3.2-5.2); Albumin/Globulin Ratio 0.9 (1.0-2.3); Alkaline Phosphatase 78 U/L (39-117); Bilirubin,Direct < 0.2 mg/dL (0.0-0.3); Blood Urea Nitrogen 71 mg/dl (6-20); Gamma Glutamyl Transpeptidase 23 U/L (8-61)
[2018-09-07] MEDS: INSULIN LISPRO 1 UNIT/0.01 ML UNIT SQ SCH ×2 (07:48→12:01)
[2018-09-07] MEDS: LEVOTHYROXINE 150 MCG TABLET PO SCH (07:48)
[2018-09-07] MEDS: METOCLOPRAMIDE 10 MG TABLET PO SCH ×2 (07:49→12:11)
[2018-09-07] MEDS: OMEPRAZOLE 20 MG CAPSULE PO SCH (07:49)
[2018-09-07] MEDS: SEVELAMER 800 MG TABLET PO SCH ×2 (07:49→12:11)
--- NOTE | 2018-09-07 08:05 | Internal Med Progress Note ---
Medical - PN: Subj Patient information: Note initiated : 09/07/18 at 8:04 am Service Date, if different from initiated Date: [] Patient: Bart Pagan a 58 y/o M admitted on 09/02/18 for right foot wound. Chief Complaint: [] Interval history: Mr. Pagan is a 58 year old M with history of diabetes, end-stage renal disease on dialysis, he was recently discharged from this facility where he was admitted for nausea vomiting. The patient notes that there was a small amount of ulceration or opening in his right lower extremity at that time, he continued to work since the time of her discharge. Yesterday noticed that there was significant swelling erythema on his right foot. He noted that he had low-grade temperatures as well as some chills. Given that he has had a nasty foot infection in the past decided to come in today for further evaluation, In the ER on presentation he was afebrile 98.8, heart rate 88 blood pressure 121/69 respirations 12 saturating 94% on 2 L. The wound showed opening and there was significant amount of pus coming out, there was cellulitis surrounding this wound. Dr. Echevarria orthopedic surgeon production hardener was consulted by the ER who took the patient to the surgery and drain the wound. The plan is to have Dr. Love evaluate the patient later for further revision surgeries as needed. Medicine was asked to admit the patient given extensive medical comorbidities. On my evaluation the patient noted that he also has been having some pain in his left knee, this has been there intermittently on and off for many weeks however for the last week or so has been quite worse. On my eval there was also some effusion in the left knee and the knee was tender to touch. Patient does have a history of gout. 09/03 Patient seen and examined, no acute overnight events no complaints or concerns. The left knee is still bothering him. We tapped the knee yesterday it is negative for any inflammation or acute infection most likely osteoarthritis related pain. Plan for steroid injection today. Blood cultures are positive, echocardiogram ordered. Wound care and infectious disease nephrology and orthopedics are following the patient. Blood cultures and wound cultures are emesis staph. Vancomycin and Zosyn has been discontinued patient has been started on Ancef 09/04 Pt seen examined, no acute overnight events. Pt s/p steroid inj in the knee. He has no new complaints or concerns Plan to review dressing changse with wound care, continue abx, plan for d/c to snf tomorrow if remains stable and wound care needs be met there. 09/05 Pt seen examined, no acute overnight issues, no new complaints or concerns. Glucose level elevated likely due to steroid injection as well as not resume home dose as glucose was lower initially resume home insulin dose, monitor gliucose levels Pt to get dialysis today, stable for d/c plan for SNF placement in AM 09/06 No overnight events. No new complaints. Had a bump in WBCs but afebrile does not appear toxic and does not feel any worse and did have a steroid injection the other day. 09/07 Slept okay, no new complaints. Hoping to discharge soon. Review of Systems: denies headache/fever/chills/nausea/vomiting/chest or abdominal pain/cough/dyspnea/diarrhea. Otherwise see above. - Constitutional Vitals: Vital Signs Temp Pulse Resp BP Pulse Ox 97.6 F 70 18 128/70 96 09/07/18 06:23 09/07/18 00:00 09/07/18 06:23 09/07/18 06:23 09/07/18 06:23 Period Temp Pulse Resp BP Sys/Mancini Pulse Ox Last 24 Hr 97.2 F-97.6 F 70-82 16-20 112-128/60-70 96-97 Intake and Output 09/06/18 09/07/18 09/07/18 21:59 05:59 13:59 Intake Total 200 / 440 Output Total 150 / 1025 725 / 1025 Balance -150 / -585 -525 / -585 Weight 104.099 kg Intake & Output: Intake & Output 09/06/18 09/07/18 09/07/18 21:59 05:59 13:59 Intake Total 200 / 440 Output Total 150 / 1025 725 / 1025 Balance -150 / -585 -525 / -585 Weight 104.099 kg Intake: Oral 200 / 440 Output: Void Amount 150 / 1025 725 / 1025 Other: Stool Color Brown Stool Consistency Formed Loose # Bowel Movements 1 Exam: General: Alert, Awake, No acute Distress, obese Eyes/N/T: EOMI, Head/Neck: neck supple CV: regular today, No murmurs, Pulm: Clear b/l, no wheezing/rhonchi/rales Abd: soft, nontender, +BS x4 Ext: no clubbing/cyanosis, right foot wrapped in MOISES Neuro: Alert, no focal deficits, moves all extremities Skin: warm/dry Medical - PN: Obj Da - Labs CBC & Chem 7: 09/07/18 05:15 09/07/18 05:15 Labs: Abnormal Lab Results 09/07/18 09/07/18 09/07/18 05:15 05:15 05:15 WBC 13.5 H RBC 2.85 L Hgb 9.4 L Hct 29.0 L MCV 101.6 H RDW 15.7 H Gran % 87.5 H Lymph % (Auto) 9.5 L Gran # 11.8 H Lymph # (Auto) 1.3 L PT 26.0 H INR 2.4 H Sodium Chloride 94 L BUN 71 H Creatinine 3.4 H Glucose 144 H Calcium 8.0 L Albumin 2.9 L Globulin Albumin/Globulin Ratio 0.9 L Triglycerides 09/06/18 09/06/18 09/06/18 05:39 05:38 05:38 WBC 15.7 H RBC 2.83 L Hgb 9.5 L Hct 28.6 L MCV 100.9 H RDW 15.6 H Gran % 91.0 H Lymph % (Auto) 7.0 L Gran # 14.3 H Lymph # (Auto) 1.1 L PT 26.3 H INR 2.5 H Sodium Chloride 93 L BUN 41 H Creatinine 2.8 H Glucose 244 H Calcium 8.2 L Albumin 2.8 L Globulin Albumin/Globulin Ratio 0.8 L Triglycerides 158 H 09/05/18 09/05/18 09/05/18 05:28 05:27 05:27 WBC 11.5 H RBC 3.12 L Hgb 10.3 L Hct 32.0 L MCV 102.6 H RDW 15.3 H Gran % 93.9 H Lymph % (Auto) 4.8 L Gran # 10.8 H Lymph # (Auto) 0.6 L PT 26.3 H INR 2.5 H Sodium 132 L Chloride 91 L BUN 48 H Creatinine 3.7 H Glucose 342 H Calcium 8.2 L Albumin 2.7 L Globulin 4.2 H Albumin/Globulin Ratio 0.6 L Triglycerides 164 H Meds: Medications Acetaminophen (Tylenol) 650 mg PO Q6HP PRN PRN Reason: PAIN/FEVER > 101 Albuterol Sulfate (Ventolin) 2.5 mg NEB Q2HP PRN PRN Reason: Shortness Of Breath Allopurinol (Zyloprim) 100 mg PO QDAY [facility] Last Admin: 09/06/18 08:12 Dose: 100 mg Documented by: Amlodipine Besylate (Norvasc) 10 mg PO QDAY [facility] Last Admin: 09/06/18 08:12 Dose: 10 mg Documented by: Atorvastatin Calcium (Lipitor) 40 mg PO [facility] Last Admin: 09/06/18 21:41 Dose: 40 mg Documented by: Calcitriol (Rocaltrol) 0.5 mcg PO MoWeFr@0900 [facility] Last Admin: 09/05/18 10:41 Dose: 0.5 mcg Documented by: Cefazolin Sodium (Ancef) 2 gm IV MoWe@1800 [facility] Last Admin: 09/05/18 17:23 Dose: 2 gm Documented by: Cefazolin Sodium (Ancef) 3 gm IV Fr@1800 [facility] Dextrose (Dextrose 50%) 0 ml IV UD PRN PRN Reason: Hypoglycemia Diagnostic Test (Pha) (Accu-Chek) 1 each FS ACHS [facility] Last Admin: 09/07/18 07:23 Dose: 1 each Documented by: Docusate Sodium (Colace) 100 mg PO BID [facility] Last Admin: 09/06/18 21:42 Dose: Not Given Documented by: Gabapentin (Neurontin) 300 mg PO QDAY [facility] Last Admin: 09/06/18 08:12 Dose: 300 mg Documented by: Glucose (Insta-Glucose) 15 gm PO PRN PRN PRN Reason: Hypoglycemia Hydromorphone HCl (Dilaudid) 0.5 mg IV Q2HP PRN PRN Reason: PAIN LEVEL > 6 Last Admin: 09/03/18 20:48 Dose: 0.5 mg Documented by: Gentamicin Sulfate 40 mg/Clindamycin Phosphate 300 mg/Bacitracin 25,000 unit/ Sodium Chloride 503 mls @ 0 mls/hr IRR BID [facility] Last Admin: 09/06/18 21:42 Dose: 1 mls/hr Documented by: Insulin Glargine (Lantus) 60 unit SQ [facility] Last Admin: 09/06/18 21:41 Dose: 60 units Documented by: Insulin Human Lispro (Humalog) 0 unit SQ ACHS [facility]; Protocol Last Admin: 09/07/18 07:48 Dose: 3 units Documented by: Levothyroxine Sodium (Synthroid) 300 mcg PO QAMAC [facility] Last Admin: 09/07/18 07:48 Dose: 300 mcg Documented by: Losartan Potassium (Cozaar) 50 mg PO QDAY [facility] Last Admin: 09/06/18 08:12 Dose: 50 mg Documented by: Metoclopramide HCl (Reglan) 5 mg PO AC [facility] Last Admin: 09/07/18 07:49 Dose: 5 mg Documented by: Naloxone HCl (Narcan) 0.1 mg IV Q2MIN PRN PRN Reason: Opiate Reversal Omeprazole (Prilosec) 20 mg PO ACB [facility] Last Admin: 09/07/18 07:49 Dose: 20 mg Documented by: Oxycodone HCl (Roxicodone) 5 mg PO Q4HP PRN PRN Reason: PAIN LEVEL 3-6 Last Admin: 09/03/18 14:50 Dose: 5 mg Documented by: Sevelamer Carbonate (Renvela) 1,600 mg PO TIDCC [facility] Last Admin: 09/07/18 07:49 Dose: 1,600 mg Documented by: Sodium Chloride (Saline Flush) 10 ml IV Q8 [facility] Last Admin: 09/07/18 06:33 Dose: 10 ml Documented by: Torsemide (Demadex) 40 mg PO DAILY [facility] Last Admin: 09/06/18 08:11 Dose: 40 mg Documented by: Warfarin Sodium (Coumadin Per Pharmacy) 1 order PO UD [facility] Medical - PN: A/P - Time Spent With Patient Total time spent is greater than 50% in coordination of care (as documented) at patient's floor/unit and/or counseling patient: - Narrative A/P Narrative: A/P Cellulitis with Osteomyelitis , Right foot -MSSA bactermia, and MSSA from the wound, Echo is negative, repeat cultures negative, pt on ancph 2gm monday, monday and 3 gms monday after HD. total 4 weeks planned for now. Dr Love is on vacation, further plan of care will be after he returns. Outpatient follow up with Infectious disease 3 weeks and Wound care in 3-5 days planned ESRD on HD -continue scheduled DM as per nephrology DM -uncontrolled glucose, resume home medications, ssi insulin HTN/HLD -bp stable, resume home medication. Gout -allopurinol to continue at home dose. Knee aspirate was negative for any crystals Knee pain, left -likely OA , s/p steroid inj, doing well, fluid analysis is negative. Diabetic Gastroparesis =stable no issues this admit Atrial fibrillation -rate stable, continue anticoagulation with coumadin Hypothyroidsim -continue home dose of levothyroxine. DVT on coumadin Full code Carb consistent/ renal diet. Medical - PN: Qual - VTE Deep Vein Thrombosis/Pulmonary Embolism Present on Admission: No
[2018-09-07] MEDS: CALCITRIOL 0.25 MCG CAPSULE PO SCH (10:27)
[2018-09-07] MEDS: amLODIPine 10 MG TABLET PO SCH (10:27)
[2018-09-07] MEDS: TORSEMIDE 10 MG TABLET PO SCH (10:27)
[2018-09-07] MEDS: DOCUSATE SODIUM 100 MG CAPSULE PO SCH (10:27)
[2018-09-07] MEDS: GABAPENTIN 300 MG CAPSULE PO SCH (10:27)
[2018-09-07] MEDS: LOSARTAN 50 MG TABLET PO SCH (10:27)
[2018-09-07] MEDS: ALLOPURINOL 100 MG TABLET PO SCH (10:27)
[2018-09-07] MEDS: GENTAMICIN SULFATE 40 MG, CLINDAMYCIN 300 MG, BACITRACIN 25,000 UNIT in SODIUM CHLORIDE... IRR SCH (10:27)
[2018-09-07] MEDS: INSULIN GLARGINE, HUMAN 1 UNIT/0.01 ML SQ SCH (12:02)
[2018-09-07] MEDS ORDERED: WARFARIN 10 MG TABLET PO ONE (14:00)
[2018-09-07] MEDS ORDERED: ceFAZolin 1 GM VIAL IV SCH (18:00)
== END 2018-09-07 14:40 | DRG 623 ==
LOC: ED 11:30 → SUR 12:58 → MEDSUR 14:00
PROVIDERS: ADMIT Internal Medicine; ATTEND Internal Medicine

== ENCOUNTER 2018-09-20 09:06 | Inpatient (IN) ==
[2018-09-18 12:04] LABS: Appearance,Urine CLEAR; Bacteria,Urine 0 /hpf (0); Bilirubin,Urine NEG (NEG); Color,Urine YELLOW; Glucose,Urine (UA) 50 mg/dL (NEG); Leukocyte Esterase,Urine NEG /uL (NEG); Mucus,Urine FEW /hpf (0); Protein,Urine >=500 mg/dL (NEG); Specific Gravity,Urine 1.014 (1.000-1.035); Urine Blood NEG mg/dL (<0.03); Urine RBC 1 /hpf (0-1); Urine Squamous Epithelial Cell < 1 /hpf (0-4); Urine WBC 1 /hpf (0-4); Urobilinogen,Urine NEG (NEG)
[2018-09-18 12:56] LABS: Basophils # (Auto) 0.1 K/mcL (0.0-0.3); Eosinophils # (Auto) 0.1 K/mcL (0.0-0.7); Eosinophils % (Auto) 0.9 % (0.0-7.0); Granulocytes % (Auto) 80.7 % (38.0-78.0); Lymphocytes % (Auto) 11.6 % (15.5-49.0); Mean Cell Volume 100.9 fL (80.0-100.0); Mean Corpuscular HGB Conc 32.7 g/dL (31.0-36.0); Monocytes # (Auto) 0.5 K/mcL (0.1-0.9); Monocytes % (Auto) 5.8 % (1.0-12.0); Platelet Count 291 K/mcL (140-440); RBC 2.79 M/mcL (4.50-5.90); Red Cell Distribution Width 15.5 % (11.5-14.5)
[~2018-09-20 09:06] MED LIST: ceFAZolin 1 GM VIAL IV SCH
[2018-09-20] MEDS ORDERED: KETAMINE 100 MG/ML ML IV ONE (12:55)
[2018-09-20] MEDS ORDERED: ePHEDrine 50 MG/ML AMPUL IV ONE (12:55)
[2018-09-20] MEDS ORDERED: TRANEXAMIC ACID 1,000 MG/10 ML VIAL IV ONE (12:55)
[2018-09-20] MEDS ORDERED: DEXAMETHASONE 10 MG/ML VIAL IV ONE (12:55)
[2018-09-20] MEDS ORDERED: PROPOFOL 200 MG/20 ML VIAL IV ONE (12:55)
[2018-09-20] MEDS ORDERED: ONDANSETRON 4 MG/2 ML VIAL IV ONE (12:55)
[2018-09-20] MEDS ORDERED: MIDAZOLAM 5 MG/5 ML VIAL IV ONE (12:55)
[2018-09-20] MEDS ORDERED: LIDOCAINE HCL/PF 100 MG/5 ML SYRINGE IV ONE (12:55)
[2018-09-20] MEDS ORDERED: ROPIVACAINE HCL/PF 20 ML VIAL IJ ONE (12:55)
[2018-09-20] MEDS ORDERED: fentaNYL 100 MCG/2 ML VIAL IV ONE (12:55)
[2018-09-20] MEDS ORDERED: BUPIVACAINE 0.5% 50 ML VIAL IJ ONE (13:31)
[2018-09-20] MEDS ORDERED: GENTAMICIN SULFATE 800 MG/20 ML VIAL IR ONE (13:32)
[2018-09-20] MEDS ORDERED: IPRATROPIUM/ALBUTEROL 3 ML AMPUL.NEB NEB PRN (13:45)
[2018-09-20] MEDS ORDERED: ACETAMINOPHEN 1,000 MG/100 ML BOTTLE IV ONE (13:45)
[2018-09-20] MEDS ORDERED: FLUMAZENIL 0.1 MG/ML ML IV PRN (13:45)
[2018-09-20] MEDS ORDERED: BENZOCAINE/MENTHOL 1 LOZENGE PO PRN ×2 (13:45→14:00)
[2018-09-20] MEDS ORDERED: diphenhydrAMINE 50 MG/ML VIAL IV PRN (13:45)
[2018-09-20] MEDS ORDERED: PROMETHAZINE 25 MG/ML VIAL IV PRN (13:45)
[2018-09-20] MEDS ORDERED: ONDANSETRON 4 MG/2 ML VIAL IV PRN ×2 (13:45→14:00)
[2018-09-20] MEDS ORDERED: NALOXONE HCL 0.4 MG/ML VIAL IV PRN (13:45)
[2018-09-20] MEDS ORDERED: 0.9 % SODIUM CHLORIDE 1,000 ML IV SCH (13:45)
[2018-09-20] MEDS ORDERED: MEPERIDINE 25 MG/ML SYRINGE IV PRN (13:45)
[2018-09-20] MEDS ORDERED: POLYETHYLENE GLYCOL 3350 17 GM PACKET PO PRN (14:00)
[2018-09-20] MEDS ORDERED: BISACODYL 10 MG SUPP.RECT PR PRN (14:00)
[2018-09-20] MEDS ORDERED: TRANEXAMIC ACID 1,000 MG/10 ML VIAL IV SCH (14:00)
[2018-09-20] MEDS ORDERED: FLEETS ADULT ENEMA PR PRN (14:00)
[2018-09-20] MEDS ORDERED: 0.45 % SODIUM CHLORIDE 1,000 ML IV SCH (14:00)
[2018-09-20] MEDS ORDERED: ACETAMINOPHEN 325 MG TABLET PO PRN (14:06)
--- NOTE | 2018-09-20 14:18 | Brief Operative Note ---
Date of procedure: 09/20/17 Pre-op diagnosis: nonhealing wound with peripheral neuropathy r leg Post-op diagnosis: same Procedure: R BKA Grafts/Implants: No Anesthesia: SADI Surgeon: Nishant Love Wheat Shipper: Mina Juarez Estimated blood loss (cc): 750 Tourniquet Time (Minutes): 24 Specimens Removed/Pathology: other (leg for disposal) Condition: stable Disposition: PACU
[2018-09-20] MEDS ORDERED: DEXTROSE 31 GM ORAL.SUSP PO PRN (14:32)
[2018-09-20] MEDS ORDERED: DEXTROSE 50% 50 ML VIAL IV PRN (14:32)
[2018-09-20] MEDS: fentaNYL 100 MCG/2 ML VIAL IV PRN ×5 (14:35→18:00)
--- NOTE | 2018-09-20 15:23 | Internal Medicine Consult Note ---
Medical - CN: [facility] - Data of Consult Consult date: 09/20/18 Requesting physician: Nishant Love Primary Care Provider: ONEIL Goodson - Consult Narrative Reason for consult: management of medical issues History of present illness: Mr. Pagan is a 58 year old M with a history of ESRD on 3 times a week hemodialysis, diabetes and nonhealing right lower extremity ulceration//MSSA osteomyelitis/wound that required recent incision and drainage/antibiotic in consultation with infectious disease specialist. He was subsequently discharged to long term home on IV cefazolin to be continued till October 04, 2018 with advised to follow-up with orthopedics/wound care. During subsequent follow-up it was decided patient would benefit from below-knee amputation. He underwent right BKA performed by orthopedics Dr. Love today postoperatively hospitalist service is consulted for management of underlying medical issues including diabetes hypertension/peripheral vascular disease and ESRD on hemodialysis. Patient was reviewed immediately postoperative. He denies any active distress. Review of systems 10 point review system was performed and is negative except for one discussed above CC: Nishant Love Medical - CN: [facility] Medical history: Medical History (Last Reviewed 05/22/18 @ 13:38 by Ayanna Dela Cruz CMA) Gouty arthropathy with tophi (Acute) Encounter for long-term (current) use of high-risk medication (Acute) Gout (Acute) Hand joint stiff (Acute) Polyarthralgia (Chronic) Inflammatory arthropathy (Suspected) Cough (Chronic) Vision problems (Chronic) Hand pain (Chronic) Thoracic back pain (Chronic) Spinal stenosis of thoracic region (Chronic) Cervical radiculopathy (Chronic) Spinal stenosis in cervical region (Chronic) Knee joint pain (Chronic) Elbow joint pain (Chronic) Atrial fibrillation (Chronic) Essential hypertension (Chronic) Anemia (Chronic) Vitamin D deficiency (Chronic) Diabetic foot ulcer (Chronic) 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) Diabetes mellitus (Chronic) Hypothyroidism (Chronic) Musculoskeletal pain (Chronic) Chronic kidney disease, stage IV (severe) (Chronic) Elevated erythrocyte sedimentation rate (Chronic) Hyperparathyroidism due to renal insufficiency (Chronic) Proteinuria (Chronic) Secondary hyperparathyroidism of renal origin (Chronic) Chronic kidney disease, stage IV (severe) (Chronic) Hyperuricemia (Chronic) Ulcer of foot (Acute) Secondary hyperparathyroidism (Chronic 09/15/13) Acidosis, renal tubular (Acute 08/21/13) Lumbar sprain (Acute) Hyperthyroidism (Acute) Hypertensive renal disease (Chronic 08/21/13) Hypertension (Acute) Creatinine elevation (Acute) Edema (Chronic 09/15/13) Type 2 diabetes mellitus, uncontrolled (Acute 08/21/13) Type 2 diabetes mellitus (Chronic) Stage III chronic kidney disease (Chronic 09/15/13) Atrial flutter (Acute) Surgical history: History of discectomy (Acute) History of arthroscopy of left shoulder (Chronic 04/16/15) History of lumbar discectomy (Chronic ~1986) Family history: reviewed and not pertinent Pertinent family history: adopted 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 [employer] Smoking status: Never smoker Drug use: none Alcohol use: none Medical - CN: Meds Home Medications Medication Instructions Recorded Confirmed Type insulin detemir (U-100) 100 60 unit SUB-Q HS ml 01/15/16 09/20/18 History unit/mL (3 mL) subcutaneous pen levothyroxine 150 mcg capsule 300 mcg PO ACB 05/27/16 09/20/18 History insulin aspart U- 100 100 unit/mL 15 unit SUB-Q QPMAC ml 01/02/17 09/20/18 History subcutaneous pen ergocalciferol (vitamin D2) 50,000 50,000 unit PO ORTIZ cap 03/24/17 09/20/18 History unit capsule RX: Acetaminophen [Tylenol] 650 mg PO Q4-6HP PRN tab 05/01/17 09/20/18 Rx allopurinol 100 mg tablet 100 mg PO QDAY #30 tab 05/22/18 09/20/18 Rx atorvastatin 40 mg tablet 40 mg PO HS 06/07/18 09/20/18 History calcitriol 0.5 mcg capsule 0.5 mcg PO MOWEFR cap 06/07/18 09/20/18 History sevelamer HCl 800 mg tablet 1,600 mg PO TID tab 06/07/18 09/20/18 History gabapentin 300 mg capsule 300 mg PO QDAY 30 Days #30 cap 08/20/18 09/20/18 Rx torsemide 20 mg tablet 40 mg PO QDAY #180 tab 08/20/18 09/20/18 Rx RX: Warfarin [Coumadin] 15 mg PO MOWEFR 08/23/18 09/20/18 History RX: Omeprazole [Prilosec] 20 mg PO ACB #20 cap 08/26/18 09/20/18 Rx RX: Ondansetron [Zofran ODT] 4 mg SL Q6HP PRN #20 tab 08/26/18 09/20/18 Rx RX: Insulin Glargine,Hum.rec.anlog 60 unit SQ DAILY 09/02/18 09/20/18 History [Basaglar Kwikpen U-100] RX: Metoclopramide [Reglan] 5 mg PO AC 09/02/18 09/20/18 History RX: ceFAZolin [Ancef] 2 gm IV MoWe@1800 #1 vial 09/05/18 09/20/18 Rx RX: ceFAZolin [Ancef] 3 gm IV Fr@1800 #1 vial 09/05/18 09/20/18 Rx RX: Warfarin Sodium 10 mg PO SUTUTHSA 09/14/18 09/20/18 History Allergies Allergy/AdvReac Type Severity Reaction Status Date / Time Beta-Blockers AdvReac Mild Hypotension Verified 08/23/18 08:54 (Beta-Adrenergic Bloc Medical - CN: Exam - Constitutional Vitals: Temp Pulse Resp BP Pulse Ox 97.8 F 96 H 14 136/91 91 09/20/18 14:13 09/20/18 14:38 09/20/18 14:38 09/20/18 14:38 09/20/18 14:38 General appearance: no acute distress Exam: Postoperative Nondistressed Head normocephalic Moist mucous membranes No ear nose discharge No JVD Clear to auscultation S1-S2 regular rhythm Abdomen soft nontender Lower extreme the right BKA dressing Skin no suspicious lesion Psych alert cooperative Neuro nonfocal Medical - CN: Result - Labs CBC & Chem 7: 09/21/18 08:23 09/21/18 09:05 Labs: Short CBC 09/20/18 Range/Units 14:52 Hct 23.8 L (41.0-55.0) % Medical - CN: A/P (1) Status post below knee amputation of right lower extremity Status: Acute Assessment and plan: * Status post right BKA-continue management per orthopedics Medical consult * ESRD on HD-nephrology consult . On III times a week dialysis * DM type II continue basal prandial insulin * Hypertension restart home medications * Hyperlipidemia continue statin * Atrial fibrillation- rate controlled * Diabetic gastroparesis- Diet per carrot buncher * Neuropathy continue gabapentin * Hypothyroidism continue thyroxine * History of gout continue allopurinol * DVT prophylaxis on Coumadin Plan * Postop management per orthopedics * Hemodialysis per nephrology * Restart pre-existing medication * Coumadin dosing based on INR
[2018-09-20] MEDS: HYDROcodone/APAP 10/325MG TABLET PO PRN ×2 (16:00→20:02)
[2018-09-20] MEDS ORDERED: WARFARIN 10 MG TABLET PO ONE (16:00)
[2018-09-20] MEDS: 0.9 % SODIUM CHLORIDE 10 ML SYRINGE IV SCH (16:27)
[2018-09-20] MEDS ORDERED: INSULIN ASPART 15 UNIT SUB-Q SCH (17:00)
--- NOTE | 2018-09-20 17:03 | Operative Note ---
DATE OF OPERATION: 09/20/2018 PREOPERATIVE DIAGNOSIS: Peripheral neuropathy with ulceration, right foot. POSTOPERATIVE DIAGNOSIS: Peripheral neuropathy with ulceration, right foot. OPERATION: Shlvn-ccl-dnob amputation, right. SURGEON: Nishant Love M.D. CORPORATION SECRETARY: Mina Juarez PA-C. ANESTHESIA: General done by Clive Billy CRNA. TOURNIQUET TIME: 24 minutes. ESTIMATED BLOOD LOSS: 750 mL. SUMMARY OF PROCEDURE: General anesthesia was attained. The right leg was prepped and draped. A modified fishmouth incision was made in the diaphyseal region of the tibia. The posterior flap was longer than the anterior flap to improve the vascularity. The anterior cut was made down to bone. Arterial bleeders were suture ligated. The tibia was osteotomized transversely. I then took an anterior wedge out of the tibia. The fibula was cut more proximal than the tibial cut. The posterior skin cut was accomplished after this using a cake knife, getting a bevel cut through the soft tissue of the posterior flap. The popliteal artery was identified and ligated. Larger veins were also clamped and then tied with 0 silk. The tourniquet was let down. At this point the bleeding was well controlled. Two drill holes were made in the anterior tibia. The distal tibia and the distal fibula were then covered with bone wax to prevent recurrent bone formation. A Hemovac drain was placed. Two sutures were placed through the anterior tibia and then through the superficial and deep posterior fascia. The flap was advanced dorsally and these two sutures were tied over the Hemovac drain. The wound was then closed in layers. This was done with 0 Vicryl and then 2-0 Monocryl. The skin was closed with simple and mattress sutures of 2-0 nylon and also with anthony. The area was infiltrated with 30 mL of Marcaine for postoperative analgesia. A sterile compressive dressing was applied followed by a posterior splint. The sponge and needle count was correct. The patient tolerated the procedure well and was taken to the recovery room in stable condition. TJF:[email or web address] Job ID: [id number] Doc ID: [id number] Nishant Love MD
[2018-09-20] MEDS: INSULIN LISPRO 1 UNIT/0.01 ML UNIT SQ SCH ×2 (18:01→20:08)
[2018-09-20] MEDS: SEVELAMER 800 MG TABLET PO SCH (18:01)
[2018-09-20] MEDS: METOCLOPRAMIDE 10 MG TABLET PO SCH (18:02)
[2018-09-20] MEDS: ATORVASTATIN 20 MG TABLET PO SCH (20:02)
[2018-09-20] MEDS: SENNOSIDES 1 TABLET PO SCH (20:08)
[2018-09-20] MEDS: DOCUSATE SODIUM 100 MG CAPSULE PO SCH (20:08)
[2018-09-20] MEDS ORDERED: INSULIN DETEMIR 60 UNIT SUB-Q SCH (21:00)
[2018-09-20] MEDS ORDERED: ceFAZolin 1 GM VIAL IV SCH (22:00)
[2018-09-21] MEDS: HYDROcodone/APAP 10/325MG TABLET PO PRN ×4 (00:10→14:31)
[2018-09-21] MEDS: fentaNYL 100 MCG/2 ML VIAL IV PRN ×2 (00:17→08:21)
[2018-09-21] MEDS: 0.9 % SODIUM CHLORIDE 10 ML SYRINGE IV SCH ×4 (04:14→21:38)
--- NOTE | 2018-09-21 07:39 | Orthopedic Progress Note ---
Subjective Patient information: Note initiated : 09/21/18 at 7:35 am Service Date, if different from initiated Date: [] Patient: Bart Pagna 58 y/o M admitted on 09/20/18 for Right Below Knee Amputation. Chief Complaint: [] Principal diagnosis: s/p right BKA Interval history: Patient doing well this morning and pain is controlled. Remains in splint and dressings are not feeling wet. He denies any CP, SOB, WOLFE, light headedness, or any other acute symptoms. Objective Vital signs: Vital Signs Temp Pulse Resp BP Pulse Ox 09/21/18 04:00 97.6 F 108 H 16 150/83 95 09/21/18 00:00 98 F 114 H 18 142/77 98 09/20/18 20:00 97.6 F 120 H 18 151/82 100 09/20/18 17:35 119 H 147/84 100 09/20/18 17:05 124 H 135/87 100 09/20/18 16:35 123 H 133/84 96 09/20/18 16:20 124 H 123/81 100 09/20/18 16:05 108 H 145/81 100 09/20/18 15:50 118 H 148/90 99 09/20/18 15:35 122 H 129/86 97 09/20/18 15:25 115 H 14 139/96 96 09/20/18 15:18 105 H 14 138/75 98 09/20/18 15:08 99 H 14 149/93 100 09/20/18 14:58 107 H 14 155/86 96 09/20/18 14:48 100 H 14 124/77 90 09/20/18 14:38 96 H 14 136/91 91 09/20/18 14:28 100 H 16 124/75 97 09/20/18 14:23 100 H 16 120/74 98 09/20/18 14:18 97 H 14 99/63 96 09/20/18 14:13 97.8 F 94 H 12 113/59 99 09/20/18 12:00 98.0 F 63 16 146/79 96 Intake and Output 09/20/18 09/21/18 09/21/18 21:59 05:59 13:59 Intake Total 1500 800 Output Total 265 560 Balance 1235 240 Intake: IV 100 Oral 300 800 IV - Manual Only 1100 Output: Drainage 15 10 Right Thigh Hemovac 15 10 Void Amount 550 Estimated Blood Loss 250 Other: Meal Dinner Percent of Meal Consumed 100% Feeding Ability Assist with Tray Set Up Weight 223 lb Intake & Output: Intake & Output 09/20/18 09/21/18 09/21/18 21:59 05:59 13:59 Intake Total 1500 800 Output Total 265 560 Balance 1235 240 Weight 223 lb Intake: IV 100 Oral 300 800 IV - Manual Only 1100 Output: Drainage 15 10 Right Thigh Hemovac 15 10 Void Amount 550 Estimated Blood Loss 250 Other: Meal Dinner Percent of Meal Consumed 100% Feeding Ability Assist with Tray Set Up Incision: Yes healing Incision clean and dry: Yes Dressing: Yes clean, Yes dry, Yes intact, Yes splint in place Weight bearing status: non (on RLE) Neurological exam IM: Yes neurovascular intact - Labs CBC & BMP: 09/20/18 14:52 Labs: Orthopedic Labs 09/21/18 09/20/18 06:40 09:59 PT Pending 14.1 INR Pending 1.1 09/21/18 09/20/18 09/18/18 06:40 14:52 11:01 Hgb Pending 9.2 L Hct Pending 23.8 L 28.2 L Assessment and Plan - Narrative A/P Narrative: POD 1 S/P right BKA PT for assistance with transfers Splint to remain in place, change dressings on POD 3 Drain may be pulled today Plan for discharge to SNF in 2-3 days Prescription for rigid removable brace as soon as possible ([facility] orthotics/prosthetics)
[2018-09-21] MEDS: OMEPRAZOLE 20 MG CAPSULE PO SCH (07:58)
[2018-09-21] MEDS: METOCLOPRAMIDE 10 MG TABLET PO SCH ×3 (07:58→17:09)
[2018-09-21] MEDS: LEVOTHYROXINE 150 MCG TABLET PO SCH (07:58)
[2018-09-21] MEDS: INSULIN LISPRO 1 UNIT/0.01 ML UNIT SQ SCH ×4 (08:20→21:38)
[2018-09-21] MEDS ORDERED: TORSEMIDE 10 MG TABLET PO SCH (09:00)
[2018-09-21] MEDS: SEVELAMER 800 MG TABLET PO SCH ×3 (09:16→17:10)
[2018-09-21] MEDS: INSULIN GLARGINE, HUMAN 1 UNIT/0.01 ML SQ SCH (09:16)
[2018-09-21] MEDS: DOCUSATE SODIUM 100 MG CAPSULE PO SCH ×2 (09:23→21:39)
--- NOTE | 2018-09-21 09:44 | Internal Med Progress Note ---
Medical - PN: Subj Patient information: Note initiated : 09/21/18 at 9:39 am Service Date, if different from initiated Date: [] Patient: Bart Pagan a 58 y/o M admitted on 09/20/18 for Right Below Knee Amputation. Chief Complaint: [] Interval history: Mr. Pagan is a 58 year old M with a history of ESRD on 3 times a week hemodialysis, diabetes and nonhealing right lower extremity ulceration//MSSA osteomyelitis/wound that required recent incision and drainage/antibiotic in consultation with infectious disease specialist. He was subsequently discharged to senior living home on IV cefazolin to be continued till October 04, 2018 with advised to follow-up with orthopedics/wound care. During subsequent follow-up it was decided patient would benefit from below-knee amputation. He underwent right BKA performed by orthopedics Dr. Love today postoperatively hospitalist service is consulted for management of underlying medical issues including diabetes hypertension/peripheral vascular disease and ESRD on hemodialysis. Patient was reviewed immediately postoperative. He denies any active distress. 09/21-patient doing well. No overnight events. Postop day 1. Ongoing hemodialysis. Adequate pain control on IV fentanyl. Continue postoperative care per orthopedics. Pre-existing medication management currently on home medications. Ongoing therapies/nutrition support. - Constitutional Vitals: Vital Signs Temp Pulse Resp BP Pulse Ox 97.6 F 92 H 16 121/79 95 09/21/18 09:06 09/21/18 09:06 09/21/18 04:00 09/21/18 09:06 09/21/18 09:06 Period Temp Pulse Resp BP Sys/Mancini Pulse Ox Last 24 Hr 97.6 F-98.0 F 63-124 12-18 99-155/59-96 90-100 Intake and Output 09/20/18 09/21/18 09/21/18 21:59 05:59 13:59 Intake Total 1500 800 120 Output Total 265 560 175 Balance 1235 240 -55 Weight 223 lb Intake & Output: Intake & Output 09/20/18 09/21/18 09/21/18 21:59 05:59 13:59 Intake Total 1500 800 120 Output Total 265 560 175 Balance 1235 240 -55 Weight 223 lb Intake: IV 100 Oral 300 800 120 IV - Manual Only 1100 Output: Drainage 15 10 Right Thigh Hemovac 15 10 Void Amount 550 175 Estimated Blood Loss 250 Other: Meal Dinner Breakfast Percent of Meal Consumed 100% 100% Feeding Ability Assist with Tray Set Up General appearance: no acute distress Exam: Right BKA stump dressing Alert oriented No labored breathing no anxiety Medical - PN: Obj Da - Labs CBC & Chem 7: 09/21/18 08:23 09/21/18 09:05 Labs: Abnormal Lab Results 09/21/18 09/21/18 09/20/18 06:40 06:40 14:52 RBC Hgb 8.1 L Hct 25.1 L 23.8 L POC Hct MCV RDW Gran % Lymph % (Auto) Lymph # (Auto) PT 15.2 H INR 1.2 H POC BUN POC Creatinine POC WB Ioniz Calcium Urine Protein Urine Glucose (UA) 09/20/18 09/18/18 09/18/18 09:59 11:01 11:01 RBC 2.79 L Hgb 9.2 L Hct 28.2 L POC Hct 26.0 L MCV 100.9 H RDW 15.5 H Gran % 80.7 H Lymph % (Auto) 11.6 L Lymph # (Auto) 1.0 L PT INR POC BUN 21 H POC Creatinine 3.1 H POC WB Ioniz Calcium 1.10 L Urine Protein >=500 A Urine Glucose (UA) 50 A Meds: Medications Acetaminophen (Tylenol) 650 mg PO Q4-6HP PRN PRN Reason: PAIN/FEVER > 101 Hydrocodone Bitart/Acetaminophen ([place] 10/325mg) 0 tab PO Q4HP PRN PRN Reason: PAIN LEVEL 3-6 Last Admin: 09/21/18 09:16 Dose: 2 tab Documented by: Allopurinol (Zyloprim) 100 mg PO QDAY [facility] Atorvastatin Calcium (Lipitor) 40 mg PO HS [facility] Last Admin: 09/20/18 20:02 Dose: 40 mg Documented by: Bisacodyl (Dulcolax) 10 mg UT Q2-3DAYS PRN PRN Reason: Constipation Calcitriol (Rocaltrol) 0.5 mcg PO MoWeFr@1400 [facility] Dextrose (Dextrose 50%) 0 ml IV UD PRN PRN Reason: Hypoglycemia Diagnostic Test (Pha) (Accu-Chek) 1 each FS ACHS [facility] Last Admin: 09/21/18 07:58 Dose: 1 each Documented by: Docusate Sodium (Colace) 100 mg PO BID [facility] Last Admin: 09/21/18 09:23 Dose: Not Given Documented by: Ergocalciferol (Drisdol) 50,000 unit PO Zapata@0900 [facility] Fentanyl (Sublimaze) 12.5 mcg IV Q4HP PRN PRN Reason: PAIN LEVEL > 6 Last Admin: 09/21/18 08:21 Dose: 12.5 mcg Documented by: Gabapentin (Neurontin) 300 mg PO QDAY [facility] Glucose (Insta-Glucose) 15 gm PO PRN PRN PRN Reason: Hypoglycemia Sodium Chloride (Sodium Chloride 0.45%) 1,000 mls @ 0 mls/hr IV .Q0M [facility] Insulin Glargine (Lantus) 60 unit SQ DAILY [facility] Last Admin: 09/21/18 09:16 Dose: 60 units Documented by: Insulin Human Lispro (Humalog) 0 unit SQ ACHS [facility]; Protocol Last Admin: 09/21/18 08:20 Dose: 6 units Documented by: Levothyroxine Sodium (Synthroid) 300 mcg PO QAMAC [facility] Last Admin: 09/21/18 07:58 Dose: 300 mcg Documented by: Magnesium Hydroxide (Milk Of Magnesia) 30 ml PO BIDP PRN PRN Reason: Constipation Metoclopramide HCl (Reglan) 5 mg PO AC [facility] Last Admin: 09/21/18 07:58 Dose: 5 mg Documented by: Omeprazole (Prilosec) 20 mg PO ACB [facility] Last Admin: 09/21/18 07:58 Dose: 20 mg Documented by: Ondansetron HCl (Zofran) 4 mg IV Q4HP PRN PRN Reason: Nausea And Vomiting Ondansetron HCl (Zofran Odt) 4 mg SL Q6HP PRN PRN Reason: Nausea Polyethylene Glycol (Miralax) 17 gm PO DAILYP PRN PRN Reason: Constipation Senna (Senokot) 2 tab PO HS [facility] Last Admin: 09/20/18 20:08 Dose: Not Given Documented by: Sevelamer Carbonate (Renvela) 1,600 mg PO TIDCC [facility] Last Admin: 09/21/18 09:16 Dose: 1,600 mg Documented by: Sodium Chloride (Saline Flush) 10 ml IV Q8 [facility] Last Admin: 09/21/18 04:14 Dose: 10 ml Documented by: Throat Lozenges (Cepacol) 1 lozenge PO PRN PRN PRN Reason: Sore Throat Torsemide (Demadex) 20 mg PO DAILY [facility] Warfarin Sodium (Coumadin Per Pharmacy) 1 order PO UD JUANA Medical - PN: A/P - Time Spent With Patient Total time spent is greater than 50% in coordination of care (as documented) at patient's floor/unit and/or counseling patient: 25 - 35 minutes (1) Status post below knee amputation of right lower extremity Status: Acute Assessment and plan: * Status post right BKA-postop day 2. Continue management per orthopedics Medical consult * ESRD on HD-hemodialysis today. Nephrology on board. * Postoperative pain management on as needed IV fentanyl * DM type II continue basal prandial insulin. * Hypertension restart home medications * Hyperlipidemia continue statin * Atrial fibrillation-rate controlled * Diabetic gastroparesis-at baseline * Neuropathy continue gabapentin * Hypothyroidism continue thyroxine * History of gout continue allopurinol * DVT prophylaxis on Coumadin Plan * Postop management per orthopedics * Medical management as above * Coumadin dosing based on INR * A.m. labs Current Visit: Yes Medical - PN: Qual - Stroke Symptom Onset Unknown: No - VTE Deep Vein Thrombosis/Pulmonary Embolism Present on Admission: No
[2018-09-21 10:11] LABS: Basophils # (Auto) 0 K/mcL (0.0-0.3); Basophils % (Auto) 0.1 % (0.0-2.0); Eosinophils # (Auto) 0 K/mcL (0.0-0.7); Eosinophils % (Auto) 0.1 % (0.0-7.0); Granulocytes % (Auto) 88.5 % (38.0-78.0); Lymphocytes # (Auto) 0.9 K/mcL (1.5-4.8); Lymphocytes % (Auto) 7.9 % (15.5-49.0); Mean Cell Volume 100.6 fL (80.0-100.0); Mean Corpuscular HGB Conc 32.2 g/dL (31.0-36.0); Monocytes # (Auto) 0.4 K/mcL (0.1-0.9); Monocytes % (Auto) 3.4 % (1.0-12.0); Platelet Count 256 K/mcL (140-440); RBC 2.56 M/mcL (4.50-5.90); Red Cell Distribution Width 14.8 % (11.5-14.5)
[2018-09-21 10:30] LABS: ALT/SGPT < 5 U/l (0-40); Albumin 3.5 gm/dL (3.2-5.2); Albumin/Globulin Ratio 1.1 (1.0-2.3); Alkaline Phosphatase 70 U/L (39-117); Blood Urea Nitrogen 33 mg/dl (6-20); Iron 32 mcg/dl (61-157); Transferrin % Saturation 14 % (20-50); Unsaturated Iron Binding 190 mcg/dL (112-346)
[2018-09-21] MEDS ORDERED: WARFARIN 5 MG TABLET PO SCH (14:00)
[2018-09-21] MEDS ORDERED: WARFARIN 10 MG TABLET PO ONE (14:00)
[2018-09-21] MEDS: TORSEMIDE 10 MG TABLET PO SCH (14:29)
[2018-09-21] MEDS: ALLOPURINOL 100 MG TABLET PO SCH (14:30)
[2018-09-21] MEDS: GABAPENTIN 300 MG CAPSULE PO SCH (14:31)
[2018-09-21] MEDS: CALCITRIOL 0.25 MCG CAPSULE PO SCH (14:31)
--- NOTE | 2018-09-21 14:44 | Nephrology Progress Note ---
Subjective Patient information: Note initiated : 09/21/18 at 2:42 pm Service Date, if different from initiated Date: [] Patient: Bart Pagan 58 y/o M admitted on 09/20/18 for Right Below Knee Amputation. Chief Complaint: [] Principal diagnosis: s/p right BKA Interval history: Patient follows with me for ESRD He is admitted post right BKA amputation He is feeling a little better today, pain control fair denies SOB, CP no nausea, vomiting no edema denies any concerns he is due for dialysis today Pertinent ROS: as above Objective - Vital Signs Vital signs: Vital Signs Temp Pulse Pulse Resp BP BP Pulse Ox 09/21/18 14:03 97.3 F 80 136/83 09/21/18 13:57 67 133/81 09/21/18 13:40 86 130/79 09/21/18 13:25 82 120/70 09/21/18 13:10 68 120/77 09/21/18 12:40 77 120/70 09/21/18 12:26 73 123/77 09/21/18 12:10 80 119/79 09/21/18 12:04 80 119/72 09/21/18 11:42 80 130/78 09/21/18 11:25 73 110/57 09/21/18 11:11 71 110/66 09/21/18 11:00 97.5 F 109/67 09/21/18 10:57 70 109/67 09/21/18 10:29 73 134/59 09/21/18 10:05 97.5 F 93 H 126/66 09/21/18 09:06 97.6 F 92 H 121/79 95 09/21/18 04:00 97.6 F 108 H 16 150/83 95 09/21/18 00:00 98 F 114 H 18 142/77 98 09/20/18 20:00 97.6 F 120 H 18 151/82 100 09/20/18 17:35 119 H 147/84 100 09/20/18 17:05 124 H 135/87 100 09/20/18 16:35 123 H 133/84 96 09/20/18 16:20 124 H 123/81 100 09/20/18 16:05 108 H 145/81 100 09/20/18 15:50 118 H 148/90 99 09/20/18 15:35 122 H 129/86 97 09/20/18 15:25 115 H 14 139/96 96 09/20/18 15:18 105 H 14 138/75 98 09/20/18 15:08 99 H 14 149/93 100 09/20/18 14:58 107 H 14 155/86 96 09/20/18 14:48 100 H 14 124/77 90 Intake and Output 09/21/18 09/21/18 09/21/18 05:59 13:59 21:59 Intake Total 800 120 120 Output Total 791 336 5481 Balance 240 -71 -1881 Intake: Oral 800 120 120 Output: Drainage 10 Right Thigh Hemovac 10 Void Amount 550 175 Hemodialysis UF 1999 Other: Meal Breakfast Lunch Percent of Meal Consumed 100% 100% Weight 223 lb Patient Weight 09/22/18 05:59 Weight 223 lb Intake & Output: Intake & Output 09/21/18 09/21/18 09/21/18 05:59 13:59 21:59 Intake Total 800 120 120 Output Total 581 283 5291 Balance 240 1879 Weight 223 lb Intake: Oral 800 120 120 Output: Drainage 10 Right Thigh Hemovac 10 Void Amount 550 175 Hemodialysis UF 1999 Other: Meal Breakfast Lunch Percent of Meal Consumed 100% 100% - General Appearance General appearance: appears started age, obese EENT: mucous membranes moist Neck: no JVD Respiratory: clear Cardiology: no rub, no edema, normal S1, normal S2 Gastrointestinal: no tenderness, no guarding Integumentary: no rash, warm and dry Neurologic: alert and oriented x3 Musculoskeletal: no erythema, no cyanosis Psychiatric: mood/affect appropriate - Lab 09/21/18 08:23 09/21/18 09:05 Most recent lab results Calcium 8.4 mg/dl (8.6-10.4) L 09/21/18 09:05 Phosphorus 4.6 mg/dL (2.7-4.5) H 09/21/18 09:05 Assessment and Plan (1) Secondary hyperparathyroidism Status: Acute (2) Foot infection Status: Acute Priority: High Comment: (3) Anemia Status: Acute Qualifiers: Anemia type: due to chronic kidney disease Chronic kidney disease stage: on chronic dialysis Qualified Code(s): N18.6 - End stage renal disease; D63.1 - Anemia in chronic kidney disease; Z99.2 - Dependence on renal dialysis (4) ESRD (end stage renal disease) Status: Acute - Narrative A/P Narrative: Patient will get HD today for 4.25hrs using revaclear dialyser, 3K/2.5Ca dialysate, UF goal of 1-2L as tolerated next HD on monday HTN: BP control fair torsemide dose reduced to 20mg per pt request, no e/o fluid overload either Anemia: Tsat low but ferritin 859 will continue aranesp secondary hyperparathyroidism: phos elevated, diet changed to renal diet, ct sevelamer, calcitriol phos enema stopped, please do not use in patient's with renal disease albumin down to 3.5, started nepro supplement foot infection s/p BKA amputation, ongoing IV antibiotics, managed by Dr Love Will follow along
[2018-09-21] MEDS: ONDANSETRON 4 MG ODT TABLET SL PRN (17:09)
[2018-09-21] MEDS ORDERED: ceFAZolin 1 GM VIAL IV SCH (18:00)
[2018-09-21] MEDS: ATORVASTATIN 20 MG TABLET PO SCH (21:38)
[2018-09-21] MEDS: SENNOSIDES 1 TABLET PO SCH (21:39)
[2018-09-22] MEDS: HYDROcodone/APAP 10/325MG TABLET PO PRN ×4 (01:58→11:34)
[2018-09-22] MEDS: 0.9 % SODIUM CHLORIDE 10 ML SYRINGE IV SCH ×3 (04:00→21:27)
--- NOTE | 2018-09-22 07:11 | Orthopedic Progress Note ---
Subjective Patient information: Note initiated : 09/22/18 at 7:10 am Service Date, if different from initiated Date: [] Patient: Bart Pagan 58 y/o M admitted on 09/20/18 for Right Below Knee Amputation. Chief Complaint: [] Principal diagnosis: s/p right BKA Interval history: doing well. no complaints Objective Vital signs: Vital Signs Temp Pulse Pulse Resp BP BP Pulse Ox 09/22/18 04:00 98.2 F 72 18 129/74 94 09/21/18 23:29 98.0 F 80 18 123/77 96 09/21/18 20:00 97.6 F 70 16 125/76 97 09/21/18 16:37 97.9 F 18 145/89 96 09/21/18 14:03 97.3 F 80 136/83 09/21/18 13:57 67 133/81 09/21/18 13:40 86 130/79 09/21/18 13:25 82 120/70 09/21/18 13:10 68 120/77 09/21/18 12:40 77 120/70 09/21/18 12:26 73 123/77 09/21/18 12:10 80 119/79 09/21/18 12:04 80 119/72 09/21/18 11:42 80 130/78 09/21/18 11:25 73 110/57 09/21/18 11:11 71 110/66 09/21/18 11:00 97.5 F 109/67 09/21/18 10:57 70 109/67 09/21/18 10:29 73 134/59 09/21/18 10:05 97.5 F 93 H 126/66 09/21/18 09:06 97.6 F 92 H 121/79 95 Intake and Output 09/21/18 09/22/18 09/22/18 21:59 05:59 13:59 Intake Total 680 200 Output Total 2014 150 Balance -1335 50 Intake: Oral 680 200 Output: Drainage 15 Right Thigh Hemovac 15 Void Amount 150 Hemodialysis UF 2000 Other: Meal Dinner Percent of Meal Consumed 100% # Voids 1 Weight 220 lb 4.8 oz Intake & Output: Intake & Output 09/21/18 09/22/18 09/22/18 21:59 05:59 13:59 Intake Total 680 200 Output Total 2014 150 Balance -1335 50 Weight 220 lb 4.8 oz Intake: Oral 680 200 Output: Drainage 15 Right Thigh Hemovac 15 Void Amount 150 Hemodialysis UF 2000 Other: Meal Dinner Percent of Meal Consumed 100% # Voids 1 Incision: Yes healing Incision clean and dry: Yes Dressing: Yes clean, Yes dry, Yes intact Weight bearing status: non Neurological exam IM: Yes abnormal gait, Yes alert, Yes oriented X3, Yes motor sensory intact, Yes neurovascular intact Extremities exam IM: Yes normal inspection, Yes neurovascular intact - Labs CBC & BMP: 09/21/18 08:23 09/21/18 09:05 Labs: Orthopedic Labs 09/22/18 09/21/18 09/20/18 05:30 06:40 09:59 PT 14.5 15.2 H 14.1 INR 1.1 1.2 H 1.1 09/22/18 09/21/18 09/21/18 05:30 08:23 06:40 Hgb Pending 8.3 L 8.1 L Hct Pending 25.7 L 25.1 L 09/20/18 09/18/18 14:52 11:01 Hgb 9.2 L Hct 23.8 L 28.2 L Assessment and Plan (1) Foot infection s/p bka per protocol pt pain control plan rehab monday Status: Acute Priority: High Comment:
[2018-09-22] MEDS: INSULIN LISPRO 1 UNIT/0.01 ML UNIT SQ SCH ×4 (07:19→21:27)
[2018-09-22] MEDS: METOCLOPRAMIDE 10 MG TABLET PO SCH ×3 (07:21→16:36)
[2018-09-22] MEDS: GABAPENTIN 300 MG CAPSULE PO SCH (07:22)
[2018-09-22] MEDS: LEVOTHYROXINE 150 MCG TABLET PO SCH (07:22)
[2018-09-22] MEDS: DOCUSATE SODIUM 100 MG CAPSULE PO SCH ×2 (07:22→21:08)
[2018-09-22] MEDS: OMEPRAZOLE 20 MG CAPSULE PO SCH (07:22)
[2018-09-22] MEDS: ALLOPURINOL 100 MG TABLET PO SCH (07:23)
[2018-09-22] MEDS: TORSEMIDE 10 MG TABLET PO SCH (07:23)
[2018-09-22] MEDS: SEVELAMER 800 MG TABLET PO SCH ×3 (07:23→16:36)
[2018-09-22 07:37] LABS: Basophils # (Auto) 0.1 K/mcL (0.0-0.3); Basophils % (Auto) 0.7 % (0.0-2.0); Eosinophils # (Auto) 0.1 K/mcL (0.0-0.7); Eosinophils % (Auto) 1.4 % (0.0-7.0); Granulocytes % (Auto) 73.7 % (38.0-78.0); Lymphocytes # (Auto) 1.4 K/mcL (1.5-4.8); Lymphocytes % (Auto) 18.9 % (15.5-49.0); Mean Cell Volume 100.2 fL (80.0-100.0); Mean Corpuscular HGB Conc 32.3 g/dL (31.0-36.0); Monocytes # (Auto) 0.4 K/mcL (0.1-0.9); Monocytes % (Auto) 5.3 % (1.0-12.0); Platelet Count 203 K/mcL (140-440); RBC 2.36 M/mcL (4.50-5.90); Red Cell Distribution Width 15.4 % (11.5-14.5)
[2018-09-22 08:06] LABS: ALT/SGPT 5 U/l (0-40); Alkaline Phosphatase 65 U/L (39-117); Bilirubin,Direct 0.2 mg/dL (0.0-0.3); Blood Urea Nitrogen 21 mg/dl (6-20); Gamma Glutamyl Transpeptidase 15 U/L (8-61); Uric Acid 2.5 mg/dL (2.5-8.0)
[2018-09-22 08:28] LABS: Erythrocyte Sedimentation Rate 75 mm/hr (0-15)
[2018-09-22] MEDS ORDERED: DARBEPOETIN ALFA 100 MCG/ML VIAL IV ONE (09:00)
[2018-09-22] MEDS: fentaNYL 100 MCG/2 ML VIAL IV PRN ×2 (09:10→21:22)
[2018-09-22] MEDS: INSULIN GLARGINE, HUMAN 1 UNIT/0.01 ML SQ SCH (09:10)
[2018-09-22] MEDS: ONDANSETRON 4 MG ODT TABLET SL PRN (09:17)
--- NOTE | 2018-09-22 13:07 | Internal Med Progress Note ---
Medical - PN: Subj Patient information: Note initiated : 09/22/18 at 1:04 pm Service Date, if different from initiated Date: [] Patient: Bart Pagan a 58 y/o M admitted on 09/20/18 for Right Below Knee Amputation. Chief Complaint: [] Interval history: Mr. Pagan is a 58 year old M with a history of ESRD on 3 times a week hemodialysis, diabetes and nonhealing right lower extremity ulceration//MSSA osteomyelitis/wound that required recent incision and drainage/antibiotic in consultation with infectious disease specialist. He was subsequently discharged to group home home on IV cefazolin to be continued till October 04, 2018 with advised to follow-up with orthopedics/wound care. During subsequent follow-up it was decided patient would benefit from below-knee amputation. He underwent right BKA performed by orthopedics Dr. Love today postoperatively hospitalist service is consulted for management of underlying medical issues including diabetes hypertension/peripheral vascular disease and ESRD on hemodialysis. Patient was reviewed immediately postoperative. He denies any active distress. 09/21-patient doing well. No overnight events. Postop day 1. Ongoing hemodialysis. Adequate pain control on IV fentanyl. Continue postoperative care per orthopedics. Pre-existing medication management currently on home medications. Ongoing therapies/nutrition support. 2 Patient seen and examined, no acute overnight events. He has no acute complaints except pain at the site of surgery. Hemoglobin low, after consultation with nephrology plan to give Aranesp Pertinent ROS: Denies headache, dizziness Denies chest pain, palpitations Denies cough or shortness of breath Denies abdominal pain, nausea or vomiting. - Constitutional Vitals: Vital Signs Temp Pulse Resp BP Pulse Ox 98.6 F 72 18 118/81 96 09/22/18 12:00 09/22/18 04:00 09/22/18 12:00 09/22/18 12:00 09/22/18 12:00 Period Temp Pulse Resp BP Sys/Mancini Pulse Ox Last 24 Hr 97.3 F-98.6 F 67-86 16-18 118-145/70-89 94-97 Intake and Output 09/21/18 09/22/18 09/22/18 21:59 05:59 13:59 Intake Total 680 200 Output Total 2014 150 125 Balance -1335 50 -125 Weight 220 lb 4.8 oz Intake & Output: Intake & Output 09/21/18 09/22/18 09/22/18 21:59 05:59 13:59 Intake Total 680 200 Output Total 2014 150 125 Balance -1335 50 -125 Weight 220 lb 4.8 oz Intake: Oral 680 200 Output: Drainage 15 Right Thigh Hemovac 15 Void Amount 150 125 Hemodialysis UF 2000 Other: Meal Dinner Breakfast Percent of Meal Consumed 100% 100% Feeding Ability Independent # Voids 1 Exam: Constitutional; Afebrile, cooperative, alert, not in distress. Respiratory system: Air Entry equal on both sides, No crackles or wheezing, no rhonchi. CVS- Rate rhythm regular, S1,S2 heard, no gallop, no rub. Abdomen- Soft nontender abdomen, no organomegaly, no tenderness, no guarding or rigidity, PROSTHETIC TECHNICIAN- AOOx3, moving all extremities, no gross focal deficit noted. Medical - PN: Obj Da - Labs CBC & Chem 7: 09/22/18 05:30 09/22/18 05:30 Labs: Abnormal Lab Results 09/22/18 09/22/18 09/21/18 05:30 05:30 09:05 WBC RBC 2.36 L Hgb 7.6 L Hct 23.6 L POC Hct MCV 100.2 H RDW 15.4 H Gran % Lymph % (Auto) Gran # Lymph # (Auto) 1.4 L ESR 75 H PT INR Sodium 132 L 128 L Chloride 92 L 92 L POC BUN BUN 21 H 33 H Creatinine 2.7 H 3.4 H POC Creatinine Glucose 134 H 268 H Calcium 8.4 L 8.4 L POC WB Ioniz Calcium Phosphorus 4.6 H Iron 32 L TIBC 222 L Transferrin % Sat 14 L Ferritin Albumin 3.0 L 09/21/18 09/21/18 09/21/18 08:23 08:23 06:40 WBC 11.9 H RBC 2.56 L Hgb 8.3 L Hct 25.7 L POC Hct MCV 100.6 H RDW 14.8 H Gran % 88.5 H Lymph % (Auto) 7.9 L Gran # 10.6 H Lymph # (Auto) 0.9 L ESR PT 15.2 H INR 1.2 H Sodium Chloride POC BUN BUN Creatinine POC Creatinine Glucose Calcium POC WB Ioniz Calcium Phosphorus Iron TIBC Transferrin % Sat Ferritin 895.9 H Albumin 0209/20/18 09/20/18 06:40 14:52 09:59 WBC RBC Hgb 8.1 L Hct 25.1 L 23.8 L POC Hct 26.0 L MCV RDW Gran % Lymph % (Auto) Gran # Lymph # (Auto) ESR PT INR Sodium Chloride POC BUN 21 H BUN Creatinine POC Creatinine 3.1 H Glucose Calcium POC WB Ioniz Calcium 1.10 L Phosphorus Iron TIBC Transferrin % Sat Ferritin Albumin Meds: Medications Acetaminophen (Tylenol) 650 mg PO Q4-6HP PRN PRN Reason: PAIN/FEVER > 101 Allopurinol (Zyloprim) 100 mg PO QDAY [facility] Last Admin: 09/22/18 07:23 Dose: 100 mg Documented by: Atorvastatin Calcium (Lipitor) 40 mg PO HS [facility] Last Admin: 09/21/18 21:38 Dose: 40 mg Documented by: Bisacodyl (Dulcolax) 10 mg DC Q2-3DAYS PRN PRN Reason: Constipation Calcitriol (Rocaltrol) 0.5 mcg PO MoWeFr@1400 [facility] Last Admin: 09/21/18 14:31 Dose: 0.5 mcg Documented by: Dextrose (Dextrose 50%) 0 ml IV UD PRN PRN Reason: Hypoglycemia Diagnostic Test (Pha) (Accu-Chek) 1 each FS ACHS [facility] Last Admin: 09/22/18 11:34 Dose: 1 each Documented by: Docusate Sodium (Colace) 100 mg PO BID [facility] Last Admin: 09/22/18 07:22 Dose: 100 mg Documented by: Ergocalciferol (Drisdol) 50,000 unit PO Zapata@0900 [facility] Fentanyl (Sublimaze) 12.5 mcg IV Q4HP PRN PRN Reason: PAIN LEVEL > 6 Last Admin: 09/22/18 09:10 Dose: 12.5 mcg Documented by: Gabapentin (Neurontin) 300 mg PO QDAY [facility] Last Admin: 09/22/18 07:22 Dose: 300 mg Documented by: Glucose (Insta-Glucose) 15 gm PO PRN PRN PRN Reason: Hypoglycemia Sodium Chloride (Sodium Chloride 0.45%) 1,000 mls @ 0 mls/hr IV .Q0M [facility] Insulin Glargine (Lantus) 60 unit SQ DAILY [facility] Last Admin: 09/22/18 09:10 Dose: 60 units Documented by: Insulin Human Lispro (Humalog) 0 unit SQ ACHS [facility]; Protocol Last Admin: 09/22/18 11:34 Dose: 6 units Documented by: Levothyroxine Sodium (Synthroid) 300 mcg PO QAMAC [facility] Last Admin: 09/22/18 07:22 Dose: 300 mcg Documented by: Magnesium Hydroxide (Milk Of Magnesia) 30 ml PO BIDP PRN PRN Reason: Constipation Metoclopramide HCl (Reglan) 5 mg PO [facility] Last Admin: 09/22/18 11:34 Dose: 5 mg Documented by: Omeprazole (Prilosec) 20 mg PO ACB [facility] Last Admin: 09/22/18 07:22 Dose: 20 mg Documented by: Ondansetron HCl (Zofran) 4 mg IV Q4HP PRN PRN Reason: Nausea And Vomiting Ondansetron HCl (Zofran Odt) 4 mg SL Q6HP PRN PRN Reason: Nausea Last Admin: 09/22/18 09:17 Dose: 4 mg Documented by: Oxycodone/Acetaminophen (Percocet 5-325 Mg) 1 - 2 tab PO Q4HP PRN PRN Reason: PAIN LEVEL 3-6 Polyethylene Glycol (Miralax) 17 gm PO DAILYP PRN PRN Reason: Constipation Senna (Senokot) 2 tab PO HS [facility] Last Admin: 09/21/18 21:39 Dose: Not Given Documented by: Sevelamer Carbonate (Renvela) 1,600 mg PO TIDCC [facility] Last Admin: 09/22/18 11:34 Dose: 1,600 mg Documented by: Sodium Chloride (Saline Flush) 10 ml IV Q8 [facility] Last Admin: 09/22/18 04:00 Dose: 10 ml Documented by: Throat Lozenges (Cepacol) 1 lozenge PO PRN PRN PRN Reason: Sore Throat Torsemide (Demadex) 20 mg PO DAILY [facility] Last Admin: 09/22/18 07:23 Dose: 20 mg Documented by: Warfarin Sodium (Coumadin Per Pharmacy) 1 order PO UD [facility] Warfarin Sodium (Coumadin) 15 mg PO ONCE@1400 [facility] Stop: 09/22/18 14:01 Medical - PN: A/P - Time Spent With Patient Total time spent is greater than 50% in coordination of care (as documented) at patient's floor/unit and/or counseling patient: - Narrative A/P Narrative: A/P s/p Right bka, post op day 3, management per ortho ESRD on HD, nephrology following, electrolytes stable Anemia of renal disease -anaresp today, monitor h/h DM on insulin -on lantus sq and ssi insulin, increase ssi from med to high scale HTN -BP stable Afib -on anticoagulation, coumadin management per pharmacy, rate controlled DM neuropathy on gabapentin to continue Gout stable on allopurinol Hypothyroidism clinically euthyroid, on levothyroxine DM gastroparesis -stable DVT on coumarin, INR subtherapeutic, start on hep sq Full code Medical - PN: Qual - Stroke Symptom Onset Unknown: No - VTE Deep Vein Thrombosis/Pulmonary Embolism Present on Admission: No
[2018-09-22] MEDS: HEPARIN 5,000 UNIT/ML VIAL SQ SCH ×2 (13:33→21:08)
[2018-09-22] MEDS ORDERED: WARFARIN 5 MG TABLET PO ONE (14:00)
[2018-09-22] MEDS: oxyCODONE/APAP 5/325MG TABLET PO PRN ×2 (15:32→22:16)
[2018-09-22] MEDS: SENNOSIDES 1 TABLET PO SCH (21:07)
[2018-09-22] MEDS: ATORVASTATIN 20 MG TABLET PO SCH (21:08)
[2018-09-23] MEDS: oxyCODONE/APAP 5/325MG TABLET PO PRN ×5 (03:51→20:09)
[2018-09-23] MEDS: 0.9 % SODIUM CHLORIDE 10 ML SYRINGE IV SCH ×4 (04:02→21:20)
[2018-09-23 06:48] LABS: Basophils # (Auto) 0 K/mcL (0.0-0.3); Basophils % (Auto) 0.7 % (0.0-2.0); Eosinophils # (Auto) 0.1 K/mcL (0.0-0.7); Granulocytes % (Auto) 70.2 % (38.0-78.0); Lymphocytes # (Auto) 1.2 K/mcL (1.5-4.8); Lymphocytes % (Auto) 20.3 % (15.5-49.0); Mean Cell Volume 100.8 fL (80.0-100.0); Mean Corpuscular HGB Conc 32.4 g/dL (31.0-36.0); Monocytes # (Auto) 0.4 K/mcL (0.1-0.9); Monocytes % (Auto) 6.8 % (1.0-12.0); Platelet Count 195 K/mcL (140-440); RBC 2.34 M/mcL (4.50-5.90); Red Cell Distribution Width 15.1 % (11.5-14.5)
[2018-09-23] MEDS: INSULIN LISPRO 1 UNIT/0.01 ML UNIT SQ SCH ×4 (07:05→19:24)
[2018-09-23 07:24] LABS: ALT/SGPT < 5 U/l (0-40); Albumin 3.2 gm/dL (3.2-5.2); Albumin/Globulin Ratio 1.1 (1.0-2.3); Alkaline Phosphatase 69 U/L (39-117); Bilirubin,Direct < 0.2 mg/dL (0.0-0.3); Blood Urea Nitrogen 36 mg/dl (6-20); Gamma Glutamyl Transpeptidase 15 U/L (8-61)
[2018-09-23] MEDS: ALLOPURINOL 100 MG TABLET PO SCH (07:59)
[2018-09-23] MEDS: SEVELAMER 800 MG TABLET PO SCH ×3 (07:59→16:09)
[2018-09-23] MEDS: METOCLOPRAMIDE 10 MG TABLET PO SCH ×3 (08:00→16:09)
[2018-09-23] MEDS: TORSEMIDE 10 MG TABLET PO SCH (08:00)
[2018-09-23] MEDS: GABAPENTIN 300 MG CAPSULE PO SCH (08:00)
[2018-09-23] MEDS: OMEPRAZOLE 20 MG CAPSULE PO SCH (08:00)
[2018-09-23] MEDS: DOCUSATE SODIUM 100 MG CAPSULE PO SCH ×2 (08:00→20:09)
[2018-09-23] MEDS: LEVOTHYROXINE 150 MCG TABLET PO SCH (08:01)
[2018-09-23] MEDS: HEPARIN 5,000 UNIT/ML VIAL SQ SCH ×2 (08:01→20:09)
[2018-09-23] MEDS: fentaNYL 100 MCG/2 ML VIAL IV PRN (08:02)
[2018-09-23] MEDS: INSULIN GLARGINE, HUMAN 1 UNIT/0.01 ML SQ SCH (08:02)
[2018-09-23] MEDS: MAGNESIUM HYDROXIDE 30 ML ORAL.SUSP PO PRN ×2 (08:15→16:09)
[2018-09-23] MEDS ORDERED: ERGOCALCIFEROL (VITAMIN D2) 50,000 UNIT CAPSULE PO SCH (09:00)
--- NOTE | 2018-09-23 10:54 | Internal Med Progress Note ---
Medical - PN: Subj Patient information: Note initiated : 09/23/18 at 10:51 am Service Date, if different from initiated Date: [] Patient: Bart Pagan a 58 y/o M admitted on 09/20/18 for Right Below Knee Amputation. Chief Complaint: [] Interval history: Mr. Pagan is a 58 year old M with a history of ESRD on 3 times a week hemodialysis, diabetes and nonhealing right lower extremity ulceration//MSSA osteomyelitis/wound that required recent incision and drainage/antibiotic in consultation with infectious disease specialist. He was subsequently discharged to long term home on IV cefazolin to be continued till October 04, 2018 with advised to follow-up with orthopedics/wound care. During subsequent follow-up it was decided patient would benefit from below-knee amputation. He underwent right BKA performed by orthopedics Dr. Love today postoperatively hospitalist service is consulted for management of underlying medical issues including diabetes hypertension/peripheral vascular disease and ESRD on hemodialysis. Patient was reviewed immediately postoperative. He denies any active distress. 2-patient doing well. No overnight events. Postop day 1. Ongoing hemodialysis. Adequate pain control on IV fentanyl. Continue postoperative care per orthopedics. Pre-existing medication management currently on home medications. Ongoing therapies/nutrition support. 2/ Patient seen and examined, no acute overnight events. He has no acute complaints except pain at the site of surgery. Hemoglobin low, after consultation with nephrology plan to give Aranesp 2/ Patient seen and examined, no acute overnight events, still has pain at the site of surgery however not any worse than yesterday. Patient glucose values are better controlled, hemoglobin is stable. Pertinent ROS: Denies headache, dizziness Denies chest pain, palpitations Denies cough or shortness of breath Denies abdominal pain, nausea or vomiting. - Constitutional Vitals: Vital Signs Temp Pulse Resp BP Pulse Ox 97.8 F 77 14 141/84 95 09/23/18 07:20 09/23/18 03:57 09/23/18 07:20 09/23/18 07:20 09/23/18 07:20 Period Temp Pulse Resp BP Sys/Mancini Pulse Ox Last 24 Hr 97.2 F-98.6 F 76-80 12-18 110-145/74-84 93-96 Intake and Output 09/22/18 09/23/18 09/23/18 21:59 05:59 13:59 Intake Total 180 400 240 Output Total 150 475 Balance 180 250 -235 Weight 210 lb Intake & Output: Intake & Output 09/22/18 09/23/18 09/23/18 21:59 05:59 13:59 Intake Total 180 400 240 Output Total 150 475 Balance 180 250 -235 Weight 210 lb Intake: Oral 180 400 240 Output: Void Amount 150 475 Other: Meal Breakfast Percent of Meal Consumed 100% Feeding Ability Independent Urine Appearance Clear Clear Urine Color Bright Yellow Dark Yellow Urine Odor Normal Exam: Constitutional; Afebrile, cooperative, alert, not in distress. Respiratory system: Air Entry equal on both sides, No crackles or wheezing, no rhonchi. CVS- Rate rhythm regular, S1,S2 heard, no gallop, no rub. 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 Medical - PN: Obj Da - Labs CBC & Chem 7: 09/23/18 05:13 09/23/18 05:13 Labs: Abnormal Lab Results 09/23/18 09/23/18 09/23/18 05:13 05:13 05:13 WBC RBC 2.34 L Hgb 7.7 L Hct 23.6 L MCV 100.8 H RDW 15.1 H Gran % Lymph % (Auto) Gran # Lymph # (Auto) 1.2 L ESR PT 14.7 H INR 1.2 H Sodium Chloride Carbon Dioxide 31 H BUN 36 H Creatinine 3.9 H Glucose Calcium 8.5 L Phosphorus Iron TIBC Transferrin % Sat Ferritin Albumin 09/22/18 09/22/18 09/21/18 05:30 05:30 09:05 WBC RBC 2.36 L Hgb 7.6 L Hct 23.6 L MCV 100.2 H RDW 15.4 H Gran % Lymph % (Auto) Gran # Lymph # (Auto) 1.4 L ESR 75 H PT INR Sodium 132 L 128 L Chloride 92 L 92 L Carbon Dioxide BUN 21 H 33 H Creatinine 2.7 H 3.4 H Glucose 134 H 268 H Calcium 8.4 L 8.4 L Phosphorus 4.6 H Iron 32 L TIBC 222 L Transferrin % Sat 14 L Ferritin Albumin 3.0 L 09/21/18 09/21/1819 08:23 08:23 06:40 WBC 11.9 H RBC 2.56 L Hgb 8.3 L Hct 25.7 L MCV 100.6 H RDW 14.8 H Gran % 88.5 H Lymph % (Auto) 7.9 L Gran # 10.6 H Lymph # (Auto) 0.9 L ESR PT 15.2 H INR 1.2 H Sodium Chloride Carbon Dioxide BUN Creatinine Glucose Calcium Phosphorus Iron TIBC Transferrin % Sat Ferritin 895.9 H Albumin 09/21/18 09/20/18 06:40 14:52 WBC RBC Hgb 8.1 L Hct 25.1 L 23.8 L MCV RDW Gran % Lymph % (Auto) Gran # Lymph # (Auto) ESR PT INR Sodium Chloride Carbon Dioxide BUN Creatinine Glucose Calcium Phosphorus Iron TIBC Transferrin % Sat Ferritin Albumin Meds: Medications Acetaminophen (Tylenol) 650 mg PO Q4-6HP PRN PRN Reason: PAIN/FEVER > 101 Allopurinol (Zyloprim) 100 mg PO QDAY [facility] Last Admin: 09/23/18 07:59 Dose: 100 mg Documented by: Atorvastatin Calcium (Lipitor) 40 mg PO HS [facility] Last Admin: 09/22/18 21:08 Dose: 40 mg Documented by: Bisacodyl (Dulcolax) 10 mg NH Q2-3DAYS PRN PRN Reason: Constipation Calcitriol (Rocaltrol) 0.5 mcg PO MoWeFr@1400 [facility] Last Admin: 09/21/18 14:31 Dose: 0.5 mcg Documented by: Dextrose (Dextrose 50%) 0 ml IV UD PRN PRN Reason: Hypoglycemia Diagnostic Test (Pha) (Accu-Chek) 1 each FS ACHS [facility] Last Admin: 09/23/18 07:05 Dose: 1 each Documented by: Docusate Sodium (Colace) 100 mg PO BID [facility] Last Admin: 09/23/18 08:00 Dose: 100 mg Documented by: Ergocalciferol (Drisdol) 50,000 unit PO Zapata@0900 [facility] Last Admin: 09/23/18 08:01 Dose: 50,000 unit Documented by: Fentanyl (Sublimaze) 12.5 mcg IV Q4HP PRN PRN Reason: PAIN LEVEL > 6 Last Admin: 09/23/18 08:02 Dose: 12.5 mcg Documented by: Gabapentin (Neurontin) 300 mg PO QDAY [facility] Last Admin: 09/23/18 08:00 Dose: 300 mg Documented by: Glucose (Insta-Glucose) 15 gm PO PRN PRN PRN Reason: Hypoglycemia Heparin Sodium (Porcine) (Heparin) 5,000 unit SQ Q12 [facility] Last Admin: 09/23/18 08:01 Dose: 5,000 unit Documented by: Sodium Chloride (Sodium Chloride 0.45%) 1,000 mls @ 0 mls/hr IV .Q0M [facility] Insulin Glargine (Lantus) 60 unit SQ DAILY [facility] Last Admin: 09/23/18 08:02 Dose: 60 units Documented by: Insulin Human Lispro (Humalog) 0 unit SQ ACHS [facility]; Protocol Last Admin: 09/23/18 07:05 Dose: Not Given Documented by: Levothyroxine Sodium (Synthroid) 300 mcg PO QAMAC [facility] Last Admin: 09/23/18 08:01 Dose: 300 mcg Documented by: Magnesium Hydroxide (Milk Of Magnesia) 30 ml PO BIDP PRN PRN Reason: Constipation Last Admin: 09/23/18 08:15 Dose: 30 ml Documented by: Metoclopramide HCl (Reglan) 5 mg PO AC [facility] Last Admin: 09/23/18 08:00 Dose: 5 mg Documented by: Omeprazole (Prilosec) 20 mg PO ACB [facility] Last Admin: 09/23/18 08:00 Dose: 20 mg Documented by: Ondansetron HCl (Zofran) 4 mg IV Q4HP PRN PRN Reason: Nausea And Vomiting Ondansetron HCl (Zofran Odt) 4 mg SL Q6HP PRN PRN Reason: Nausea Last Admin: 09/22/18 09:17 Dose: 4 mg Documented by: Oxycodone/Acetaminophen (Percocet 5-325 Mg) 1 - 2 tab PO Q4HP PRN PRN Reason: PAIN LEVEL 3-6 Last Admin: 09/23/18 08:02 Dose: 2 tab Documented by: Polyethylene Glycol (Miralax) 17 gm PO DAILYP PRN PRN Reason: Constipation Senna (Senokot) 2 tab PO HS [facility] Last Admin: 09/22/18 21:07 Dose: 2 tab Documented by: Sevelamer Carbonate (Renvela) 1,600 mg PO TIDCC [facility] Last Admin: 09/23/18 07:59 Dose: 1,600 mg Documented by: Sodium Chloride (Saline Flush) 10 ml IV Q8 [facility] Last Admin: 09/23/18 04:02 Dose: 10 ml Documented by: Throat Lozenges (Cepacol) 1 lozenge PO PRN PRN PRN Reason: Sore Throat Torsemide (Demadex) 20 mg PO DAILY [facility] Last Admin: 09/23/18 08:00 Dose: 20 mg Documented by: Warfarin Sodium (Coumadin Per Pharmacy) 1 order PO UD [facility] Medical - PN: A/P - Time Spent With Patient Total time spent is greater than 50% in coordination of care (as documented) at patient's floor/unit and/or counseling patient: - Narrative A/P Narrative: A/P s/p Right bka, post op day 4, management per ortho ESRD on HD, nephrology following, electrolytes stable Anemia of renal disease -hemoglobin 7.7 today, monitor DM on insulin -on lantus sq and ssi insulin, increase ssi from med to high scale glucose level better this AM HTN -BP stable Afib -on anticoagulation, coumadin management per pharmacy, rate controlled DM neuropathy on gabapentin to continue Gout stable on allopurinol Hypothyroidism clinically euthyroid, on levothyroxine DM gastroparesis -stable DVT on coumarin, INR subtherapeutic, start on hep sq Full code Medical - PN: Qual - Stroke Symptom Onset Unknown: No - VTE Deep Vein Thrombosis/Pulmonary Embolism Present on Admission: No
--- NOTE | 2018-09-23 11:58 | Orthopedic Progress Note ---
Subjective Patient information: Note initiated : 09/23/18 at 11:57 am Service Date, if different from initiated Date: [] Patient: Bart Pagan 58 y/o M admitted on 09/20/18 for Right Below Knee Amputation. Chief Complaint: [] Principal diagnosis: s/p right BKA Interval history: doing better today. less pain Objective Vital signs: Vital Signs Temp Pulse Resp BP Pulse Ox 09/23/18 11:00 97.6 F 16 138/75 95 09/23/18 07:20 97.8 F 14 141/84 95 09/23/18 03:57 98.2 F 77 12 142/80 95 09/23/18 00:00 97.8 F 80 16 145/80 95 09/22/18 20:00 98.0 F 76 18 133/76 96 09/22/18 15:30 97.2 F 16 110/74 93 09/22/18 12:00 98.6 F 18 118/81 96 Intake and Output 09/22/18 09/23/18 09/23/18 21:59 05:59 13:59 Intake Total 180 400 240 Output Total 150 475 Balance 180 250 -235 Intake: Oral 180 400 240 Output: Void Amount 150 475 Other: Meal Breakfast Percent of Meal Consumed 100% Feeding Ability Independent Urine Appearance Clear Clear Urine Color Bright Yellow Dark Yellow Urine Odor Normal Weight 210 lb Intake & Output: Intake & Output 09/22/18 09/23/18 09/23/18 21:59 05:59 13:59 Intake Total 180 400 240 Output Total 150 475 Balance 180 250 -235 Weight 210 lb Intake: Oral 180 400 240 Output: Void Amount 150 475 Other: Meal Breakfast Percent of Meal Consumed 100% Feeding Ability Independent Urine Appearance Clear Clear Urine Color Bright Yellow Dark Yellow Urine Odor Normal Incision: Yes healing Incision clean and dry: Yes Dressing: Yes clean, Yes dry, Yes intact Neurological exam IM: Yes abnormal gait, Yes alert, Yes oriented X3, Yes neurovascular intact - Labs CBC & BMP: 09/23/18 05:13 09/23/18 05:13 Labs: Orthopedic Labs 09/23/18 09/22/18 09/21/18 05:13 05:30 06:40 PT 14.7 H 14.5 15.2 H INR 1.2 H 1.1 1.2 H 09/20/18 09:59 PT 14.1 INR 1.1 09/23/18 09/22/18 09/21/18 05:13 05:30 08:23 Hgb 7.7 L 7.6 L 8.3 L Hct 23.6 L 23.6 L 25.7 L 09/21/18 09/20/18 09/18/18 06:40 14:52 11:01 Hgb 8.1 L 9.2 L Hct 25.1 L 23.8 L 28.2 L Assessment and Plan (1) Foot infection s/p bka per protocol pt pain control plan rehab monday Status: Acute Priority: High Comment:
[2018-09-23] MEDS ORDERED: WARFARIN 5 MG TABLET PO ONE (14:00)
[2018-09-23] MEDS: ATORVASTATIN 20 MG TABLET PO SCH (20:09)
[2018-09-23] MEDS: SENNOSIDES 1 TABLET PO SCH (20:09)
[2018-09-24] MEDS: oxyCODONE/APAP 5/325MG TABLET PO PRN ×4 (00:13→19:42)
[2018-09-24] MEDS: 0.9 % SODIUM CHLORIDE 10 ML SYRINGE IV SCH ×6 (04:06→22:00)
[2018-09-24 05:45] LABS: Basophils # (Auto) 0 K/mcL (0.0-0.3); Basophils % (Auto) 0.7 % (0.0-2.0); Eosinophils # (Auto) 0.1 K/mcL (0.0-0.7); Eosinophils % (Auto) 2.2 % (0.0-7.0); Granulocytes % (Auto) 73.1 % (38.0-78.0); Lymphocytes % (Auto) 18.3 % (15.5-49.0); Mean Cell Volume 100.1 fL (80.0-100.0); Mean Corpuscular HGB Conc 32.6 g/dL (31.0-36.0); Monocytes # (Auto) 0.3 K/mcL (0.1-0.9); Monocytes % (Auto) 5.7 % (1.0-12.0); Platelet Count 198 K/mcL (140-440); RBC 2.45 M/mcL (4.50-5.90); Red Cell Distribution Width 15.1 % (11.5-14.5)
[2018-09-24 06:16] LABS: ALT/SGPT < 5 U/l (0-40); Albumin 3.2 gm/dL (3.2-5.2); Alkaline Phosphatase 71 U/L (39-117); Bilirubin,Direct < 0.2 mg/dL (0.0-0.3); Blood Urea Nitrogen 42 mg/dl (6-20); Gamma Glutamyl Transpeptidase 17 U/L (8-61); Uric Acid 4.9 mg/dL (2.5-8.0)
[2018-09-24] MEDS: INSULIN LISPRO 1 UNIT/0.01 ML UNIT SQ SCH ×4 (07:20→19:40)
--- NOTE | 2018-09-24 07:21 | Discharge Summary ---
Providers - Providers Patient information: Note initiated : 09/24/18 at 7:19 am Service Date, if different from initiated Date: [] Patient: Bart Pagan 58 y/o M admitted on 09/20/18 for Right Below Knee Amputation. Chief Complaint: [] Date of admission: 09/20/18 Discharge date: 09/24/18 Attending physician: Nishant echols Hospitalization Hospital course: BKA, uncomplicated recovery got dialysis, PT Discharge diagnosis: below knee amputation right Procedures: R BK amputation Exam - Exam Incision healing: Yes Incision draining: No Incision red: No Incision swollen: No Incision inflamed: No Clean and dry: No Weight bearing status: none Range of motion: 0-120 Ortho Discharge Plan - General - Patient Instructions Diet: Renal Activity: other (transfers only) Dressing Care: Other (stocking, brace) Patient Education: Oxycodone/Acetaminophen (By mouth), Below the Knee Amputation (DC) Additional Instructions: Brace on for transfers. INR check in 2 days, results to be followed up by PCP. Wound care recommendations as per ortho. Outpatient dialysis as per nephrology, Pt has HD on Monday, Monday and Monday. Go to the ER if fever chest pain,shortness of breath or any other acute concern. Follow up with Dr Love as scheduled. - Follow Up Plan Follow Up Appointments: Mina Juarez PA-C [Physician Chemical Engineering Professor] - 10/03/18 9:30 am Disposition: Xfer SNF Prognosis: Fair Rehab Potential: Good I certify that the patient requires SNF services: Yes Overall status at discharge: patient is not back to baseline - Orders For Discharge Prescriptions: oxyCODONE/APAP [Percocet 5-325 mg] 1 - 2 tab PO Q4H PRN #50 tab PRN Reason: Pain Additional Discharge Orders: OT Discharge Order Location: None Selected Physical Therapy at Discharge - General Location: None Selected ST Discharge Order Location: None Selected Wound Care/Dressings Location: None Selected Pending Studies Resuscitation Status Full Code Diet Renal Diet Start Mon 1 1119 Allopurinol (Zyloprim) 100 mg PO QDAY [facility] Last Admin: 09/23/18 07:59 Dose: 100 mg Documented by: Admin: 09/22/18 07:23 Dose: 100 mg Documented by: Admin: 09/21/18 14:30 Dose: 100 mg Documented by: [email or web address] Atorvastatin Calcium (Lipitor) 40 mg PO HS [facility] Last Admin: 09/23/18 20:09 Dose: 40 mg Documented by: Admin: 09/22/18 21:08 Dose: 40 mg Documented by: Admin: 09/21/18 21:38 Dose: 40 mg Documented by: Admin: 09/20/18 20:02 Dose: 40 mg Documented by: CARLOSRT Calcitriol (Rocaltrol) 0.5 mcg PO MoWeFr@1400 [facility] Last Admin: 09/21/18 14:31 Dose: 0.5 mcg Documented by: CHRIS Diagnostic Test (Pha) (Accu-Chek) 1 each FS ACHS [facility] Last Admin: 09/23/18 21:19 Dose: 1 each Documented by: Admin: 09/23/18 19:14 Dose: 1 each Documented by: Admin: 09/23/18 16:04 Dose: 1 each Documented by: Admin: 09/23/18 11:24 Dose: 1 each Documented by: Admin: 09/23/18 07:05 Dose: 1 each Documented by: Admin: 09/22/18 21:10 Dose: 1 each Documented by: Admin: 09/22/18 16:00 Dose: 1 each Documented by: Admin: 09/22/18 11:34 Dose: 1 each Documented by: Admin: 09/22/18 07:19 Dose: 1 each Documented by: Admin: 09/21/18 21:17 Dose: 1 each Documented by: WILMAN Cosigned by: DOMINICK Admin: 09/21/18 17:09 Dose: 1 each Documented by: [email or web address] Admin: 09/21/18 13:25 Dose: 1 each Documented by: [email or web address] Admin: 09/21/18 07:58 Dose: 1 each Documented by: [email or web address] Admin: 09/20/18 20:06 Dose: 1 each Documented by: Admin: 09/20/18 17:04 Dose: 1 each Documented by: ELIZABETH Docusate Sodium (Colace) 100 mg PO BID [facility] Last Admin: 09/23/18 20:09 Dose: 100 mg Documented by: Admin: 09/23/18 08:00 Dose: 100 mg Documented by: Admin: 09/22/18 21:08 Dose: 100 mg Documented by: Admin: 09/22/18 07:22 Dose: 100 mg Documented by: Admin: 09/21/18 21:39 Dose: Not Given Documented by: Admin: 09/21/18 09:23 Dose: Not Given Documented by: Admin: 09/20/18 20:08 Dose: Not Given Documented by: BOBY Ergocalciferol (Drisdol) 50,000 unit PO Zapata@0900 [facility] Last Admin: 09/23/18 08:01 Dose: 50,000 unit Documented by: ARIEL Fentanyl (Sublimaze) 12.5 mcg IV Q4HP PRN PRN Reason: PAIN LEVEL > 6 Last Admin: 09/23/18 08:02 Dose: 12.5 mcg Documented by: Admin: 09/22/18 21:22 Dose: 12.5 mcg Documented by: Admin: 09/22/18 09:10 Dose: 12.5 mcg Documented by: Admin: 09/21/18 08:21 Dose: 12.5 mcg Documented by: Admin: 09/21/18 00:17 Dose: 12.5 mcg Documented by: Admin: 09/20/18 18:00 Dose: 12.5 mcg Documented by: ELIZABETH Gabapentin (Neurontin) 300 mg PO QDAY [facility] Last Admin: 09/23/18 08:00 Dose: 300 mg Documented by: Admin: 09/22/18 07:22 Dose: 300 mg Documented by: Admin: 09/21/18 14:31 Dose: 300 mg Documented by: [email or web address] Heparin Sodium (Porcine) (Heparin) 5,000 unit SQ Q12 [facility] Last Admin: 09/23/18 20:09 Dose: 5,000 unit Documented by: Admin: 09/23/18 08:01 Dose: 5,000 unit Documented by: Admin: 09/22/18 21:08 Dose: 5,000 unit Documented by: Admin: 09/22/18 13:33 Dose: 5,000 unit Documented by: ARIEL Insulin Glargine (Lantus) 60 unit SQ DAILY [facility] Last Admin: 09/23/18 08:02 Dose: 60 units Documented by: Admin: 09/22/18 09:10 Dose: 60 units Documented by: Admin: 09/21/18 09:16 Dose: 60 units Documented by: [email or web address] Insulin Human Lispro (Humalog) 0 unit SQ ACHS [facility]; Protocol Last Admin: 09/23/18 19:24 Dose: Not Given Documented by: Admin: 09/23/18 16:04 Dose: Not Given Documented by: Admin: 09/23/18 11:24 Dose: Not Given Documented by: Admin: 09/23/18 07:05 Dose: Not Given Documented by: Admin: 09/22/18 21:27 Dose: Not Given Documented by: Admin: 09/22/18 16:35 Dose: 3 units Documented by: ARIEL Levothyroxine Sodium (Synthroid) 300 mcg PO QAMAC [facility] Last Admin: 09/23/18 08:01 Dose: 300 mcg Documented by: Admin: 09/22/18 07:22 Dose: 300 mcg Documented by: Admin: 09/21/18 07:58 Dose: 300 mcg Documented by: [email or web address] Magnesium Hydroxide (Milk Of Magnesia) 30 ml PO BIDP PRN PRN Reason: Constipation Last Admin: 09/23/18 16:09 Dose: 30 ml Documented by: Admin: 09/23/18 08:15 Dose: 30 ml Documented by: ARIEL Metoclopramide HCl (Reglan) 5 mg PO AC [facility] Last Admin: 09/23/18 16:09 Dose: 5 mg Documented by: Admin: 09/23/18 11:24 Dose: 5 mg Documented by: Admin: 09/23/18 08:00 Dose: 5 mg Documented by: Admin: 09/22/18 16:36 Dose: 5 mg Documented by: Admin: 09/22/18 11:34 Dose: 5 mg Documented by: Admin: 09/22/18 07:21 Dose: 5 mg Documented by: Admin: 09/21/18 17:09 Dose: 5 mg Documented by: [email or web address] Admin: 09/21/18 14:31 Dose: 5 mg Documented by: [email or web address] Admin: 09/21/18 07:58 Dose: 5 mg Documented by: [email or web address] Admin: 09/20/18 18:02 Dose: 5 mg Documented by: ELIZABETH Omeprazole (Prilosec) 20 mg PO ACB [facility] Last Admin: 09/23/18 08:00 Dose: 20 mg Documented by: Admin: 09/22/18 07:22 Dose: 20 mg Documented by: Admin: 09/21/18 07:58 Dose: 20 mg Documented by: [email or web address] Ondansetron HCl (Zofran Odt) 4 mg SL Q6HP PRN PRN Reason: Nausea Last Admin: 09/22/18 09:17 Dose: 4 mg Documented by: Admin: 09/21/18 17:09 Dose: 4 mg Documented by: [email or web address] Oxycodone/Acetaminophen (Percocet 5-325 Mg) 1 - 2 tab PO Q4HP PRN PRN Reason: PAIN LEVEL 3-6 Last Admin: 09/24/18 04:05 Dose: 2 tab Documented by: Admin: 09/24/18 00:13 Dose: 2 tab Documented by: Admin: 09/23/18 20:09 Dose: 2 tab Documented by: Admin: 09/23/18 16:09 Dose: 2 tab Documented by: Admin: 09/23/18 11:57 Dose: 2 tab Documented by: Admin: 09/23/18 08:02 Dose: 2 tab Documented by: Admin: 09/23/18 03:51 Dose: 2 tab Documented by: Admin: 09/22/18 22:16 Dose: 2 tab Documented by: Admin: 09/22/18 15:32 Dose: 2 tab Documented by: ARIEL Senna (Senokot) 2 tab PO HS [facility] Last Admin: 09/23/18 20:09 Dose: 2 tab Documented by: Admin: 09/22/18 21:07 Dose: 2 tab Documented by: Admin: 09/21/18 21:39 Dose: Not Given Documented by: Admin: 09/20/18 20:08 Dose: Not Given Documented by: [email or web address] Sevelamer Carbonate (Renvela) 1,600 mg PO TIDCC [facility] Admin: 09/23/18 16:09 Dose: 1,600 mg Documented by: Admin: 09/23/18 11:24 Dose: 1,600 mg Documented by: Admin: 09/23/18 07:59 Dose: 1,600 mg Documented by: Admin: 09/22/18 16:36 Dose: 1,600 mg Documented by: Admin: 09/22/18 11:34 Dose: 1,600 mg Documented by: Admin: 09/22/18 07:23 Dose: 1,600 mg Documented by: Admin: 09/21/18 17:10 Dose: 1,600 mg Documented by: [email or web address] Admin: 09/21/18 14:30 Dose: 1,600 mg Documented by: [email or web address] Admin: 09/21/18 09:16 Dose: 1,600 mg Documented by: [email or web address] Admin: 09/20/18 18:01 Dose: 1,600 mg Documented by: ELIZABETH Sodium Chloride (Saline Flush) 10 ml IV Q8 [facility] Admin: 09/24/18 04:06 Dose: 10 ml Documented by: Admin: 09/23/18 21:20 Dose: Not Given Documented by: Admin: 09/23/18 19:15 Dose: 10 ml Documented by: Admin: 09/23/18 13:51 Dose: 10 ml Documented by: Admin: 09/23/18 04:02 Dose: 10 ml Documented by: Admin: 09/22/18 21:27 Dose: 10 ml Documented by: Admin: 09/22/18 13:33 Dose: 10 ml Documented by: Admin: 09/22/18 04:00 Dose: 10 ml Documented by: Admin: 09/21/18 21:38 Dose: 10 ml Documented by: Admin: 09/21/18 14:34 Dose: 10 ml Documented by: [email or web address] Admin: 09/21/18 04:14 Dose: 10 ml Documented by: Admin: 09/21/18 04:14 Dose: Not Given Documented by: Admin: 09/20/18 16:27 Dose: Not Given Documented by: ELIZABETH Torsemide (Demadex) 20 mg PO DAILY [facility] Last Admin: 09/23/18 08:00 Dose: 20 mg Documented by: Admin: 09/22/18 07:23 Dose: 20 mg Documented by: Admin: 09/21/18 14:29 Dose: 20 mg Documented by: [email or web address] Shift Summary 09/24/18 01:41 Shift Summary by Ailyn Pelaez Addendum entered by Ailyn Pelaez RKinsey 09/24/18 04:29: PRN Percocet administered at 0405 Original Note: AOx4. VSS on RA. Brace in place to RLE. Stand and pivot assist x1 with FWW. Percocet 2 tab x2 -- so far this shift, last @0013. Stump elevated. Denies nausea. Hypoglycemic during day shift. HS BG 91 with recheck 100. Fistula SHERICE. PIV L arm SL. Reporting constipation. Bowel regimen in place. MOM x2 during the day. No result yet. Will continue to monitor. Initialized on 09/24/18 01:41 - END OF NOTE
[2018-09-24] MEDS: MAGNESIUM HYDROXIDE 30 ML ORAL.SUSP PO PRN (07:35)
[2018-09-24] MEDS: OMEPRAZOLE 20 MG CAPSULE PO SCH (07:36)
[2018-09-24] MEDS: ALLOPURINOL 100 MG TABLET PO SCH (07:37)
[2018-09-24] MEDS: DOCUSATE SODIUM 100 MG CAPSULE PO SCH ×2 (07:37→19:40)
[2018-09-24] MEDS: GABAPENTIN 300 MG CAPSULE PO SCH (07:37)
[2018-09-24] MEDS: LEVOTHYROXINE 150 MCG TABLET PO SCH (07:37)
[2018-09-24] MEDS: METOCLOPRAMIDE 10 MG TABLET PO SCH ×3 (07:37→17:42)
[2018-09-24] MEDS: TORSEMIDE 10 MG TABLET PO SCH (07:38)
[2018-09-24] MEDS: HEPARIN 5,000 UNIT/ML VIAL SQ SCH ×2 (07:38→19:40)
[2018-09-24] MEDS: SEVELAMER 800 MG TABLET PO SCH ×3 (07:38→17:42)
[2018-09-24] MEDS: INSULIN GLARGINE, HUMAN 1 UNIT/0.01 ML SQ SCH (07:38)
[2018-09-24] MEDS: ONDANSETRON 4 MG ODT TABLET SL PRN ×2 (09:41→13:05)
--- NOTE | 2018-09-24 10:00 | Surgical Pathology Report ---
HISTOLOGY SPECIMEN MICROSCOPIC DIAGNOSIS RIGHT BELOW THE KNEE AMPUTATION: -- CHRONIC OSTEOMYELITIS. -- NO ACUTE OSTEOMYELITIS IDENTIFIED. -- ULCERATED SKIN WITH EXTENSIVE NECROSIS AND GRANULATION TISSUE. -- MODERATE TO SEVERE CALCIFIED ATHEROSCLEROSIS INVOLVING ANTERIOR AND POSTERIOR TIBIAL ARTERIES WITH 30 TO 95% OCCLUSION. -- BONE AND SOFT TISSUE MARGINS VIABLE. (EBD:sln) PROCEDURAL IMPRESSION Osteomyelitis. GROSS DESCRIPTION Received fresh labeled right below knee amputation leg, is a right below the knee amputation that measures 36.5 cm from the bone and soft tissue resection margin to the heel with a mid calf diameter of 7.5 cm. The attached foot has a prior transmetatarsal amputation and the distal five digits are missing. The remaining foot is 14.5 cm long and up to 9 cm wide. Present at the prior distal amputation site is a open 5.7 x 2 cm ulceration with associated granulation tissue. On the plantar aspect of the foot, is a 3.5 x 3.2 cm area of roblero-white thickened callous. The area of ulceration is 26 cm from the nearest soft tissue margin and 35 cm from the nearest bone margin. The anterior and posterior tibial arteries are dissected along their length and both show significant calcification with luminal narrowing ranging from 30 to approximately 95%. Technical Services Coordinator sections are submitted as follows: A1 - tibia marrow margin; A2 - fibula marrow margin; A3 - anterior tibial artery; A4 - posterior tibial artery; A5 - nearest skin and soft tissue margin; A6 - distal ulcer; A7 - subcutaneous tissue to distal ulcer; A8 - underlying bone to distal ulcer. (DMT:ham) Electronically Signed by: Jennifer Garcia M.D.
[2018-09-24] MEDS ORDERED: MINERAL OIL 1 DOSE ENEMA PR ONE (11:38)
--- NOTE | 2018-09-24 11:59 | Internal Med Progress Note ---
Medical - PN: Subj Patient information: Note initiated : 09/24/18 at 11:56 am Service Date, if different from initiated Date: [] Patient: Bart Pagan a 58 y/o M admitted on 09/20/18 for Right Below Knee Amputation. Chief Complaint: [] Interval history: Mr. Pagan is a 58 year old M with a history of ESRD on 3 times a week hemodialysis, diabetes and nonhealing right lower extremity ulceration//MSSA osteomyelitis/wound that required recent incision and drainage/antibiotic in consultation with infectious disease specialist. He was subsequently discharged to senior care home on IV cefazolin to be continued till October 04, 2018 with advised to follow-up with orthopedics/wound care. During subsequent follow-up it was decided patient would benefit from below-knee amputation. He underwent right BKA performed by orthopedics Dr. Love today postoperatively hospitalist service is consulted for management of underlying medical issues including diabetes hypertension/peripheral vascular disease and ESRD on hemodialysis. Patient was reviewed immediately postoperative. He denies any active distress. 2/-patient doing well. No overnight events. Postop day 1. Ongoing hemodialysis. Adequate pain control on IV fentanyl. Continue postoperative care per orthopedics. Pre-existing medication management currently on home medications. Ongoing therapies/nutrition support. 2/2 Patient seen and examined, no acute overnight events. He has no acute complaints except pain at the site of surgery. Hemoglobin low, after consultation with nephrology plan to give Aranesp 2/3 Patient seen and examined, no acute overnight events, still has pain at the site of surgery however not any worse than yesterday. Patient glucose values are better controlled, hemoglobin is stable. 2/4 Pt seen examined, not feeling well today, very nauseaus, no bowel movement since admission, despite taking bowel regime, glucose level was low this AM, repeat glucose is 99, pt to get x ray abdomen Discussed with nephrology to arrange HD today Plan to give enema today, if no response then trial of relistor. Pertinent ROS: Denies headache, dizziness Denies chest pain, palpitations Denies cough or shortness of breath Denies abdominal pain, no vomiting, but nausea present. - Constitutional Vitals: Vital Signs Temp Pulse Resp BP Pulse Ox 98.3 F 85 17 160/98 95 09/24/18 11:18 09/24/18 11:18 09/24/18 11:18 09/24/18 11:18 09/24/18 11:18 Period Temp Pulse Resp BP Sys/Mancini Pulse Ox Last 24 Hr 97.6 F-98.4 F 80-86 14-18 139-160/81-98 93-95 Intake and Output 09/23/18 09/24/18 09/24/18 21:59 05:59 13:59 Intake Total 880 600 Output Total 175 550 325 Balance 705 50 -325 Weight 216 lb 8 oz Intake & Output: Intake & Output 09/23/18 09/24/18 09/24/18 21:59 05:59 13:59 Intake Total 880 600 Output Total 175 550 325 Balance 705 50 -325 Weight 216 lb 8 oz Intake: Oral 880 600 Output: Void Amount 175 550 325 Other: Meal Dinner Percent of Meal Consumed 100% Feeding Ability Independent Urine Appearance Clear Urine Color Bright Yellow Urine Odor Normal Exam: Constitutional; Afebrile, cooperative, alert, not in distress. Eyes- No icterus, , No periorbital swelling Ears- Ext ear normal, hearing normal to conversation. Neck- Midline trachea, supple Respiratory system: Air Entry equal on both sides, No crackles or wheezing, no rhonchi. CVS- Rate rhythm regular, S1,S2 heard, no gallop, no rub. Abdomen- Soft nontender abdomen, no organomegaly, no tenderness, no guarding or rigidity, bowel tones present [employer]- AOOx3, moving all extremities, no gross focal deficit noted. Medical - PN: Obj Da - Labs CBC & Chem 7: 09/24/18 04:40 09/24/18 04:40 Labs: Abnormal Lab Results 09/24/18 09/24/18 09/24/18 04:40 04:40 04:40 RBC 2.45 L Hgb 8.0 L Hct 24.5 L MCV 100.1 H RDW 15.1 H Lymph # (Auto) 1.0 L ESR PT 15.9 H INR 1.3 H Sodium Chloride Carbon Dioxide 31 H BUN 42 H Creatinine 4.0 H Glucose Calcium Ferritin Albumin 09/23/18 09/23/18 09/23/18 05:13 05:13 05:13 RBC 2.34 L Hgb 7.7 L Hct 23.6 L MCV 100.8 H RDW 15.1 H Lymph # (Auto) 1.2 L ESR PT 14.7 H INR 1.2 H Sodium Chloride Carbon Dioxide 31 H BUN 36 H Creatinine 3.9 H Glucose Calcium 8.5 L Ferritin Albumin 09/22/18 09/22/18 09/21/18 05:30 05:30 08:23 RBC 2.36 L Hgb 7.6 L Hct 23.6 L MCV 100.2 H RDW 15.4 H Lymph # (Auto) 1.4 L ESR 75 H PT INR Sodium 132 L Chloride 92 L Carbon Dioxide BUN 21 H Creatinine 2.7 H Glucose 134 H Calcium 8.4 L Ferritin 895.9 H Albumin 3.0 L Meds: Medications Acetaminophen (Tylenol) 650 mg PO Q4-6HP PRN PRN Reason: PAIN/FEVER > 101 Allopurinol (Zyloprim) 100 mg PO QDAY [facility] Last Admin: 09/24/18 07:37 Dose: 100 mg Documented by: Atorvastatin Calcium (Lipitor) 40 mg PO HS [facility] Last Admin: 09/23/18 20:09 Dose: 40 mg Documented by: Bisacodyl (Dulcolax) 10 mg MS Q2-3DAYS PRN PRN Reason: Constipation Calcitriol (Rocaltrol) 0.5 mcg PO MoWeFr@1400 [facility] Last Admin: 09/21/18 14:31 Dose: 0.5 mcg Documented by: Dextrose (Dextrose 50%) 0 ml IV UD PRN PRN Reason: Hypoglycemia Diagnostic Test (Pha) (Accu-Chek) 1 each FS ACHS [facility] Last Admin: 09/24/18 11:08 Dose: 1 each Documented by: Docusate Sodium (Colace) 100 mg PO BID [facility] Last Admin: 09/24/18 07:37 Dose: 100 mg Documented by: Ergocalciferol (Drisdol) 50,000 unit PO Zapata@0900 [facility] Last Admin: 09/23/18 08:01 Dose: 50,000 unit Documented by: Fentanyl (Sublimaze) 12.5 mcg IV Q4HP PRN PRN Reason: PAIN LEVEL > 6 Last Admin: 09/23/18 08:02 Dose: 12.5 mcg Documented by: Gabapentin (Neurontin) 300 mg PO QDAY [facility] Last Admin: 09/24/18 07:37 Dose: 300 mg Documented by: Glucose (Insta-Glucose) 15 gm PO PRN PRN PRN Reason: Hypoglycemia Heparin Sodium (Porcine) (Heparin) 5,000 unit SQ Q12 [facility] Last Admin: 09/24/18 07:38 Dose: 5,000 unit Documented by: Sodium Chloride (Sodium Chloride 0.45%) 1,000 mls @ 0 mls/hr IV .Q0M [facility] Insulin Glargine (Lantus) 60 unit SQ DAILY [facility] Last Admin: 09/24/18 07:38 Dose: 60 units Documented by: Insulin Human Lispro (Humalog) 0 unit SQ ACHS [facility]; Protocol Last Admin: 09/24/18 11:08 Dose: Not Given Documented by: Levothyroxine Sodium (Synthroid) 300 mcg PO QAMAC [facility] Last Admin: 09/24/18 07:37 Dose: 300 mcg Documented by: Magnesium Hydroxide (Milk Of Magnesia) 30 ml PO BIDP PRN PRN Reason: Constipation Last Admin: 09/24/18 07:35 Dose: 30 ml Documented by: Metoclopramide HCl (Reglan) 5 mg PO AC [facility] Last Admin: 09/24/18 11:11 Dose: 5 mg Documented by: Omeprazole (Prilosec) 20 mg PO ACB [facility] Last Admin: 09/24/18 07:36 Dose: 20 mg Documented by: Ondansetron HCl (Zofran) 4 mg IV Q4HP PRN PRN Reason: Nausea And Vomiting Ondansetron HCl (Zofran Odt) 4 mg SL Q6HP PRN PRN Reason: Nausea Last Admin: 09/24/18 09:41 Dose: 4 mg Documented by: Oxycodone/Acetaminophen (Percocet 5-325 Mg) 0 tab PO Q4HP PRN PRN Reason: PAIN LEVEL 3-6 Last Admin: 09/24/18 07:55 Dose: 2 tab Documented by: Polyethylene Glycol (Miralax) 17 gm PO DAILYP PRN PRN Reason: Constipation Senna (Senokot) 2 tab PO HS [facility] Last Admin: 09/23/18 20:09 Dose: 2 tab Documented by: Sevelamer Carbonate (Renvela) 1,600 mg PO TIDCC [facility] Last Admin: 09/24/18 11:11 Dose: 1,600 mg Documented by: Sodium Chloride (Saline Flush) 10 ml IV Q8 [facility] Last Admin: 09/24/18 04:06 Dose: 10 ml Documented by: Throat Lozenges (Cepacol) 1 lozenge PO PRN PRN PRN Reason: Sore Throat Torsemide (Demadex) 20 mg PO DAILY [facility] Last Admin: 09/24/18 07:38 Dose: 20 mg Documented by: Warfarin Sodium (Coumadin Per Pharmacy) 1 order PO UD [facility] Medical - PN: A/P - Time Spent With Patient Total time spent is greater than 50% in coordination of care (as documented) at patient's floor/unit and/or counseling patient: - Narrative A/P Narrative: A/P s/p Right bka, post op day 5, management per ortho, stable for discharge from their stand point ESRD on HD, nephrology following, electrolytes stable, HD today, pt is nauseas, Anemia of renal disease -hemoglobin 8.0, today, monitor DM on insulin -on lantus sq and ssi insulin, bring back ssi to med scale. glucose level was low this AM, pt not eating much today. HTN -BP stable Afib -on anticoagulation, coumadin management per pharmacy, rate controlled DM neuropathy on gabapentin to continue Gout stable on allopurinol Hypothyroidism clinically euthyroid, on levothyroxine DM gastroparesis -stable -some nausea today, on reglan Nausea/Constipatin -enema today, mineral oil -x ray abdomen trial of relistor if this does not work DVT on coumarin, INR subtherapeutic, start on hep sq Full code Medical - PN: Qual - Stroke Symptom Onset Unknown: No - VTE Deep Vein Thrombosis/Pulmonary Embolism Present on Admission: No
--- NOTE | 2018-09-24 12:27 | XRay Report ---
HISTORY: Constipation FINDINGS: There is a moderate amount stool in the ascending and descending colon and a small amount in the lower rectum. There is no evidence of bowel obstruction or free intra-abdominal air. There is a large amount of fluid within the stomach. No free intra-abdominal air is present. No soft tissue mass is seen. There are multiple vascular calcifications in the pelvis. IMPRESSION: Over distended stomach Mild fecal impaction Interpreted and Authenticated by: Kd Hedrick 09/24/18
[2018-09-24] MEDS: CALCITRIOL 0.25 MCG CAPSULE PO SCH (13:35)
--- NOTE | 2018-09-24 13:42 | Nephrology Progress Note ---
Subjective Patient information: Note initiated : 09/24/18 at 1:39 pm Service Date, if different from initiated Date: [] Patient: Bart Pagan 58 y/o M admitted on 09/20/18 for Right Below Knee Amputation. Chief Complaint: [] Principal diagnosis: s/p right BKA Interval history: Patient seen today He was not feeling well this am had nausea, one episode of vomiting also had low blood glucose has also been constipated, this si thought sec to opiates, and happened despite on meds for this he was suppose to be discharged today but this was held due to above reasons no SOB, CP no other issues LE wound is healing good, will need another 4-6 weeks before can use prosthesis Pertinent ROS: as above Objective - Vital Signs Vital signs: Vital Signs Temp Pulse Resp BP Pulse Ox 09/24/18 11:18 98.3 F 85 17 160/98 95 09/24/18 06:56 97.6 F 18 139/81 94 09/24/18 04:02 98.1 F 80 18 147/81 09/24/18 00:00 98.4 F 86 17 145/82 93 09/23/18 20:00 98.1 F 80 17 146/82 93 09/23/18 16:00 98 F 14 140/81 93 Intake and Output 09/23/18 09/24/18 09/24/18 21:59 05:59 13:59 Intake Total 880 600 Output Total 175 550 375 Balance 705 50 -375 Intake: Oral 880 600 Output: Void Amount 175 550 325 Emesis 50 Other: Meal Dinner Lunch Percent of Meal Consumed 100% Refused Feeding Ability Independent Urine Appearance Clear Urine Color Bright Yellow Urine Odor Normal Weight 216 lb 8 oz Intake & Output: Intake & Output 09/23/18 09/24/18 09/24/18 21:59 05:59 13:59 Intake Total 880 600 Output Total 175 550 375 Balance 705 50 -375 Weight 216 lb 8 oz Intake: Oral 880 600 Output: Void Amount 175 550 325 Emesis 50 Other: Meal Dinner Lunch Percent of Meal Consumed 100% Refused Feeding Ability Independent Urine Appearance Clear Urine Color Bright Yellow Urine Odor Normal - General Appearance General appearance: appears started age EENT: mucous membranes moist Neck: no JVD Respiratory: clear Cardiology: no rub, no edema, regular rate, irregular rhythm Gastrointestinal: no tenderness, no guarding Integumentary: warm and dry Neurologic: no focal deficit, alert and oriented x3 Musculoskeletal: no erythema, no cyanosis Psychiatric: mood/affect appropriate - Lab 09/24/18 04:40 09/24/18 04:40 Most recent lab results Calcium 8.6 mg/dl (8.6-10.4) 09/24/18 04:40 Phosphorus 2.9 mg/dL (2.7-4.5) 09/24/18 04:40 Magnesium 2.4 mg/dL (1.6-2.5) 09/24/18 04:40 Assessment and Plan (1) Secondary hyperparathyroidism Status: Acute (2) Foot infection Status: Acute Priority: High Comment: (3) Anemia Status: Acute Qualifiers: Anemia type: due to chronic kidney disease Chronic kidney disease stage: on chronic dialysis Qualified Code(s): N18.6 - End stage renal disease; D63.1 - Anemia in chronic kidney disease; Z99.2 - Dependence on renal dialysis (4) ESRD (end stage renal disease) Status: Acute - Narrative A/P Narrative: Patient will get HD today for 4.0hrs using revaclear dialyser, 3K/2.5Ca dialysate, UF goal of 0.5-1L as tolerated next HD on MONDAY HTN: BP control fair Will monitor Anemia: Tsat low but ferritin 859 Hb stable since he received aranesp, ct with the same secondary hyperparathyroidism:phos level at goal, ct renvela, renal diet albumin down to 3.2, started nepro supplement foot infection s/p BKA amputation, ongoing IV antibiotics, managed by Dr Love Will follow along
[2018-09-24] MEDS ORDERED: WARFARIN 5 MG TABLET PO ONE (14:30)
[2018-09-24] MEDS ORDERED: METHYLNALTREXONE BROMIDE 12 MG/0.6 ML SYRINGE SC ONE (17:00)
[2018-09-24] MEDS ORDERED: ceFAZolin 1 GM VIAL IV SCH (18:00)
[2018-09-24] MEDS: SENNOSIDES 1 TABLET PO SCH (19:40)
[2018-09-24] MEDS: ATORVASTATIN 20 MG TABLET PO SCH (19:40)
[2018-09-25] MEDS: oxyCODONE/APAP 5/325MG TABLET PO PRN (04:06)
[2018-09-25] MEDS: 0.9 % SODIUM CHLORIDE 10 ML SYRINGE IV SCH ×3 (04:07→20:03)
[2018-09-25 06:47] LABS: Basophils # (Auto) 0 K/mcL (0.0-0.3); Basophils % (Auto) 0.5 % (0.0-2.0); Eosinophils # (Auto) 0.1 K/mcL (0.0-0.7); Eosinophils % (Auto) 2.2 % (0.0-7.0); Granulocytes % (Auto) 70.8 % (38.0-78.0); Lymphocytes # (Auto) 1.1 K/mcL (1.5-4.8); Lymphocytes % (Auto) 18.7 % (15.5-49.0); Mean Cell Volume 99.7 fL (80.0-100.0); Mean Corpuscular HGB Conc 32.7 g/dL (31.0-36.0); Monocytes # (Auto) 0.5 K/mcL (0.1-0.9); Monocytes % (Auto) 7.8 % (1.0-12.0); Platelet Count 212 K/mcL (140-440); RBC 2.45 M/mcL (4.50-5.90); Red Cell Distribution Width 14.9 % (11.5-14.5)
[2018-09-25] MEDS: METOCLOPRAMIDE 10 MG TABLET PO SCH ×3 (06:57→17:08)
[2018-09-25] MEDS: LEVOTHYROXINE 150 MCG TABLET PO SCH (06:58)
[2018-09-25] MEDS: OMEPRAZOLE 20 MG CAPSULE PO SCH (06:58)
[2018-09-25] MEDS: INSULIN LISPRO 1 UNIT/0.01 ML UNIT SQ SCH ×4 (06:59→20:05)
[2018-09-25 07:10] LABS: ALT/SGPT < 5 U/l (0-40); Albumin 3.5 gm/dL (3.2-5.2); Albumin/Globulin Ratio 1.1 (1.0-2.3); Alkaline Phosphatase 78 U/L (39-117); Bilirubin,Direct < 0.2 mg/dL (0.0-0.3); Blood Urea Nitrogen 19 mg/dl (6-20); Gamma Glutamyl Transpeptidase 17 U/L (8-61); Uric Acid 2.4 mg/dL (2.5-8.0)
[2018-09-25] MEDS: SEVELAMER 800 MG TABLET PO SCH ×3 (08:44→17:08)
[2018-09-25] MEDS: ONDANSETRON 4 MG ODT TABLET SL PRN (09:50)
[2018-09-25] MEDS: TORSEMIDE 10 MG TABLET PO SCH (10:21)
[2018-09-25] MEDS: ALLOPURINOL 100 MG TABLET PO SCH (10:22)
[2018-09-25] MEDS: DOCUSATE SODIUM 100 MG CAPSULE PO SCH ×2 (10:22→20:03)
[2018-09-25] MEDS: GABAPENTIN 300 MG CAPSULE PO SCH (10:23)
[2018-09-25] MEDS: HEPARIN 5,000 UNIT/ML VIAL SQ SCH ×2 (10:23→20:03)
[2018-09-25] MEDS: INSULIN GLARGINE, HUMAN 1 UNIT/0.01 ML SQ SCH (10:24)
--- NOTE | 2018-09-25 12:29 | Internal Med Progress Note ---
Medical - PN: Subj Patient information: Note initiated : 09/25/18 at 12:28 pm Service Date, if different from initiated Date: [] Patient: Bart Pagan a 58 y/o M admitted on 09/20/18 for Right Below Knee Amputation. Chief Complaint: [] Interval history: Mr. Pagan is a 58 year old M with a history of ESRD on 3 times a week hemodialysis, diabetes and nonhealing right lower extremity ulceration//MSSA osteomyelitis/wound that required recent incision and drainage/antibiotic in consultation with infectious disease specialist. He was subsequently discharged to longterm home on IV cefazolin to be continued till October 04, 2018 with advised to follow-up with orthopedics/wound care. During subsequent follow-up it was decided patient would benefit from below-knee amputation. He underwent right BKA performed by orthopedics Dr. Love today postoperatively hospitalist service is consulted for management of underlying medical issues including diabetes hypertension/peripheral vascular disease and ESRD on hemodialysis. Patient was reviewed immediately postoperative. He denies any active distress. 2/-patient doing well. No overnight events. Postop day 1. Ongoing hemodialysis. Adequate pain control on IV fentanyl. Continue postoperative care per orthopedics. Pre-existing medication management currently on home medications. Ongoing therapies/nutrition support. 2/2 Patient seen and examined, no acute overnight events. He has no acute complaints except pain at the site of surgery. Hemoglobin low, after consultation with nephrology plan to give Aranesp 2/3 Patient seen and examined, no acute overnight events, still has pain at the site of surgery however not any worse than yesterday. Patient glucose values are better controlled, hemoglobin is stable. 2/4 Pt seen examined, not feeling well today, very nauseaus, no bowel movement since admission, despite taking bowel regime, glucose level was low this AM, repeat glucose is 99, pt to get x ray abdomen Discussed with nephrology to arrange HD today Plan to give enema today, if no response then trial of relistor. 2/5 Pt seen examined, doing well, no complaints, glucose stable, had good bm yesterday awaiting insurance for discharge. Pertinent ROS: Denies headache, dizziness Denies chest pain, palpitations Denies cough or shortness of breath Denies abdominal pain, nausea or vomiting. - Constitutional Vitals: Vital Signs Temp Pulse Resp BP Pulse Ox 96.4 F L 70 16 150/80 97 09/25/18 11:45 09/25/18 11:45 09/25/18 11:45 09/25/18 11:45 09/25/18 11:45 Period Temp Pulse Resp BP Sys/Mancini Pulse Ox Last 24 Hr 96.4 F-99.5 F 70-96 12-20 122-165/58-107 92-97 Intake and Output 09/24/18 09/25/18 09/25/18 21:59 05:59 13:59 Intake Total 450 0 1040 Output Total 1000 300 220 Balance -550 -300 820 Weight 209 lb 8 oz Intake & Output: Intake & Output 09/24/18 09/25/18 09/25/18 21:59 05:59 13:59 Intake Total 450 0 1040 Output Total 1000 300 220 Balance -550 -300 820 Weight 209 lb 8 oz Intake: Oral 450 0 1040 Output: Void Amount 300 220 Hemodialysis UF 1000 Other: Meal Breakfast Percent of Meal Consumed 75% Urine Appearance Clear Urine Color Straw Urine Odor Normal Stool Size Moderate Stool Consistency Dry and Hard # Bowel Movements 1 Exam: Constitutional; Afebrile, cooperative, alert, not in distress. Respiratory system: Air Entry equal on both sides, No crackles or wheezing, no rhonchi. CVS- Rate rhythm regular, S1,S2 heard, no gallop, no rub. Abdomen- Soft nontender abdomen, no organomegaly, no tenderness, no guarding or rigidity, [employer]- AOOx3, moving all extremities, no gross focal deficit noted. Medical - PN: Obj Da - Labs CBC & Chem 7: 09/25/18 04:40 09/25/18 04:40 Labs: Abnormal Lab Results 09/25/18 09/25/18 09/25/18 04:40 04:40 04:40 RBC 2.45 L Hgb 8.0 L Hct 24.5 L MCV RDW 14.9 H Lymph # (Auto) 1.1 L PT 17.9 H INR 1.5 H Carbon Dioxide 32 H BUN Creatinine 2.4 H Glucose 122 H Uric Acid 2.4 L Calcium Phosphorus 2.2 L 09/24/18 09/24/18 09/24/18 04:40 04:40 04:40 RBC 2.45 L Hgb 8.0 L Hct 24.5 L MCV 100.1 H RDW 15.1 H Lymph # (Auto) 1.0 L PT 15.9 H INR 1.3 H Carbon Dioxide 31 H BUN 42 H Creatinine 4.0 H Glucose Uric Acid Calcium Phosphorus 09/23/18 09/23/18 09/23/18 05:13 05:13 05:13 RBC 2.34 L Hgb 7.7 L Hct 23.6 L MCV 100.8 H RDW 15.1 H Lymph # (Auto) 1.2 L PT 14.7 H INR 1.2 H Carbon Dioxide 31 H BUN 36 H Creatinine 3.9 H Glucose Uric Acid Calcium 8.5 L Phosphorus Meds: Medications Acetaminophen (Tylenol) 650 mg PO Q4-6HP PRN PRN Reason: PAIN/FEVER > 101 Allopurinol (Zyloprim) 100 mg PO QDAY [facility] Last Admin: 09/25/18 10:22 Dose: 100 mg Documented by: Atorvastatin Calcium (Lipitor) 40 mg PO HS [facility] Last Admin: 09/24/18 19:40 Dose: 40 mg Documented by: Bisacodyl (Dulcolax) 10 mg NC Q2-3DAYS PRN PRN Reason: Constipation Calcitriol (Rocaltrol) 0.5 mcg PO MoWeFr@1400 [facility] Last Admin: 09/24/18 13:35 Dose: 0.5 mcg Documented by: Dextrose (Dextrose 50%) 0 ml IV UD PRN PRN Reason: Hypoglycemia Diagnostic Test (Pha) (Accu-Chek) 1 each FS ACHS [facility] Last Admin: 09/25/18 12:01 Dose: 1 each Documented by: Docusate Sodium (Colace) 100 mg PO BID [facility] Last Admin: 09/25/18 10:22 Dose: 100 mg Documented by: Ergocalciferol (Drisdol) 50,000 unit PO Zapata@0900 [facility] Last Admin: 09/23/18 08:01 Dose: 50,000 unit Documented by: Fentanyl (Sublimaze) 12.5 mcg IV Q4HP PRN PRN Reason: PAIN LEVEL > 6 Last Admin: 09/23/18 08:02 Dose: 12.5 mcg Documented by: Gabapentin (Neurontin) 300 mg PO QDAY [facility] Last Admin: 09/25/18 10:23 Dose: 300 mg Documented by: Glucose (Insta-Glucose) 15 gm PO PRN PRN PRN Reason: Hypoglycemia Heparin Sodium (Porcine) (Heparin) 5,000 unit SQ Q12 [facility] Last Admin: 09/25/18 10:23 Dose: 5,000 unit Documented by: Sodium Chloride (Sodium Chloride 0.45%) 1,000 mls @ 0 mls/hr IV .Q0M [facility] Insulin Glargine (Lantus) 60 unit SQ DAILY [facility] Last Admin: 09/25/18 10:24 Dose: 60 units Documented by: Insulin Human Lispro (Humalog) 0 unit SQ ACHS [facility]; Protocol Last Admin: 09/25/18 12:02 Dose: 4 unit Documented by: Levothyroxine Sodium (Synthroid) 300 mcg PO QAMAC [facility] Last Admin: 09/25/18 06:58 Dose: 300 mcg Documented by: Magnesium Hydroxide (Milk Of Magnesia) 30 ml PO BIDP PRN PRN Reason: Constipation Last Admin: 09/24/18 07:35 Dose: 30 ml Documented by: Metoclopramide HCl (Reglan) 5 mg PO AC [facility] Last Admin: 09/25/18 12:00 Dose: 5 mg Documented by: Omeprazole (Prilosec) 20 mg PO ACB [facility] Last Admin: 09/25/18 06:58 Dose: 20 mg Documented by: Ondansetron HCl (Zofran) 4 mg IV Q4HP PRN PRN Reason: Nausea And Vomiting Ondansetron HCl (Zofran Odt) 4 mg SL Q6HP PRN PRN Reason: Nausea Last Admin: 09/25/18 09:50 Dose: 4 mg Documented by: Oxycodone/Acetaminophen (Percocet 5-325 Mg) 0 tab PO Q4HP PRN PRN Reason: PAIN LEVEL 3-6 Last Admin: 09/25/18 04:06 Dose: 1 tab Documented by: Polyethylene Glycol (Miralax) 17 gm PO DAILYP PRN PRN Reason: Constipation Senna (Senokot) 2 tab PO HS [facility] Last Admin: 09/24/18 19:40 Dose: 2 tab Documented by: Sevelamer Carbonate (Renvela) 1,600 mg PO TIDCC [facility] Last Admin: 09/25/18 12:08 Dose: Not Given Documented by: Sodium Chloride (Saline Flush) 10 ml IV Q8 [facility] Last Admin: 09/25/18 04:07 Dose: Not Given Documented by: Throat Lozenges (Cepacol) 1 lozenge PO PRN PRN PRN Reason: Sore Throat Torsemide (Demadex) 20 mg PO DAILY [facility] Last Admin: 09/25/18 10:21 Dose: 20 mg Documented by: Warfarin Sodium (Coumadin Per Pharmacy) 1 order PO [facility] Warfarin Sodium (Coumadin) 10 mg PO ONCE@1400 [facility] Stop: 09/25/18 14:01 Medical - PN: A/P - Time Spent With Patient Total time spent is greater than 50% in coordination of care (as documented) at patient's floor/unit and/or counseling patient: - Narrative A/P Narrative: A/P s/p Right bka, post op day 6, management per ortho, stable for discharge from their stand point ESRD on HD, nephrology following, electrolytes stable, HD today, pt is nauseas, Anemia of renal disease -hemoglobin stable DM on insulin -on lantus sq and ssi insulin,ssi medium scale HTN -BP stable Afib -on anticoagulation, coumadin management per pharmacy, rate controlled DM neuropathy on gabapentin to continue Gout stable on allopurinol Hypothyroidism clinically euthyroid, on levothyroxine DM gastroparesis -stable -some nausea today, on reglan Nausea/Constipatin resolved with good bm start on senna qhs DVT on coumarin, INR subtherapeutic, start on hep sq Full code awaing placement Medical - PN: Qual - Stroke Symptom Onset Unknown: No - VTE Deep Vein Thrombosis/Pulmonary Embolism Present on Admission: No
[2018-09-25] MEDS ORDERED: WARFARIN 10 MG TABLET PO ONE (14:00)
--- NOTE | 2018-09-25 16:44 | Discharge Summary ---
Medical - DS: Prov Patient information: Note initiated : 09/25/18 at 4:40 pm Service Date, if different from initiated Date: [] Patient: Bart Pagan 58 y/o M admitted on 09/20/18 for Right Below Knee Amputation. Chief Complaint: [] Date of admission: 09/20/18 09:06 Discharge date: 09/25/18 Primary care physician: ONEIL Goodson Consults: 09/20/18 14:14 Consult to Physician [CONS] Routine Comment: dialysis patient, significant blood loss at surg Consulting Provider: Johnny Schreiber Reason For Exam: Physician to Consult Discharging clinician: Izabela Gray Medical - DS: Meds - Discharge Medications Prescriptions: oxyCODONE/APAP [Percocet 5-325 mg] 1 - 2 tab PO Q4H PRN #50 tab PRN Reason: Pain Active and Home Medications: Home Medications insulin detemir (U-100) 100 unit/mL (3 mL) subcutaneous pen 60 unit SUB-Q HS ml 01/15/16 [History Confirmed 09/20/18 Last Taken 09/19/18] levothyroxine 150 mcg capsule 300 mcg PO ACB 05/27/16 [History Confirmed 09/20/18 Last Taken 09/20/18] insulin aspart U- 100 100 unit/mL subcutaneous pen 15 unit SUB-Q QPMAC ml 01/02/17 [History Confirmed 09/20/18 Last Taken 09/19/18] ergocalciferol (vitamin D2) 50,000 unit capsule 50,000 unit PO ORTIZ cap 03/24/17 [History Confirmed 09/20/18 Last Taken 09/16/18] Acetaminophen [Tylenol] 650 mg PO Q4-6HP PRN tab 05/01/17 [Rx Confirmed 09/20/18 Last Taken 08/21/18] allopurinol 100 mg tablet 100 mg PO QDAY #30 tab 05/22/18 [Rx Confirmed 09/20/18 Last Taken 09/19/18] atorvastatin 40 mg tablet 40 mg PO HS 06/07/18 [History Confirmed 09/20/18 Last Taken 09/18/18] calcitriol 0.5 mcg capsule 0.5 mcg PO MOWEFR cap 06/07/18 [History Confirmed 09/20/18 Last Taken 09/14/18] sevelamer HCl 800 mg tablet 1,600 mg PO TID tab 06/07/18 [History Confirmed 09/20/18 Last Taken 09/19/18] gabapentin 300 mg capsule 300 mg PO QDAY 30 Days #30 cap 08/20/18 [Rx Confirmed 09/20/18 Last Taken 09/18/18] torsemide 20 mg tablet 40 mg PO QDAY #180 tab 08/20/18 [Rx Confirmed 09/20/18 Last Taken 09/19/18] Warfarin [Coumadin] 15 mg PO MOWEFR 08/23/18 [History Confirmed 09/20/18 Last Taken 09/13/18] Omeprazole [Prilosec] 20 mg PO ACB #20 cap 08/26/18 [Rx Confirmed 09/20/18 Last Taken 09/18/18] Ondansetron [Zofran ODT] 4 mg SL Q6HP PRN #20 tab 08/26/18 [Rx Confirmed 09/20/18 Last Taken Unknown] Insulin Glargine,Hum.rec.anlog [Newaglbriseyda [place] U-100] 60 unit SQ DAILY 09/02/18 [History Confirmed 09/20/18 Last Taken 09/19/18] Metoclopramide [Reglan] 5 mg PO AC 09/02/18 [History Confirmed 09/20/18 Last Taken 09/20/18] ceFAZolin [Ancef] 2 gm IV MoWe@1800 #1 vial 09/05/18 [Rx Confirmed 09/20/18 Last Taken 09/18/18] ceFAZolin [Ancef] 3 gm IV Fr@1800 #1 vial 09/05/18 [Rx Confirmed 09/20/18 Last Taken 09/14/18] Warfarin Sodium 10 mg PO SUTUTHSA 09/14/18 [History Confirmed 09/20/18 Last Taken 09/11/18] oxyCODONE/APAP [Percocet 5-325 mg] 1 - 2 tab PO Q4H PRN #50 tab 09/24/18 [Rx Last Taken Unknown] Medical - DS: Hosp Hospital course: Mr. Pagan is a 58 year old M with a history of ESRD on 3 times a week hemodialysis, diabetes and nonhealing right lower extremity ulceration//MSSA osteomyelitis/wound that required recent incision and drainage/antibiotic in consultation with infectious disease specialist. He was subsequently [facility] to [facility] on IV cefazolin to be continued till October 04, 2018 with advised to follow-up with orthopedics/wound care. During subsequent follow-up it was decided patient would benefit from below-knee amputation. He underwent right BKA performed by orthopedics Dr. Love on 09/20/2018 postoperatively hospitalist service is consulted for management of underlying medical issues including diabetes hypertension/peripheral vascular disease and ESRD on hemodialysis. Patient was reviewed immediately postoperative. He denies any active distress. 2/-patient doing well. No overnight events. Postop day 1. Ongoing hemodialysis. Adequate pain control on IV fentanyl. Continue postoperative care per orthopedics. Pre-existing medication management currently on home medications. Ongoing therapies/nutrition support. 2 Patient seen and examined, no acute overnight events. He has no acute complaints except pain at the site of surgery. Hemoglobin low, after consultation with nephrology plan to give Aranesp 2 Patient seen and examined, no acute overnight events, still has pain at the site of surgery however not any worse than yesterday. Patient glucose values are better controlled, hemoglobin is stable. 09/24 Pt seen examined, not feeling well today, very nauseaus, no bowel movement since admission, despite taking bowel regime, glucose level was low this AM, repeat glucose is 99, pt to get x ray abdomen Discussed with nephrology to arrange HD today Plan to give enema today, if no response then trial of relistor. 09/25 Pt seen examined, doing well, no complaints, glucose stable, had good bm ye Insurance cleared patient for discharge, will be discharged on 09/26/17, at 5I have spent 50% of a 30 min visit, face to face in counselling and care coordination.am so he can have his HD and then go to the Rehab center. In Summary s/p Right bka, tolerated the procedure well, follow up outpatient as per ortho, wound care per ortho reccs ESRD on HD, nephrology following, Pt has HD MWF, will have last HD no tomorrow monday in AM after discharge and then go to SNF Anemia of renal disease -hemoglobin stable , outapatient management by nephrology DM on insulin -on lantus 60 sq and ssi insulin,ssi medium scale Afib -on anticoagulation, Coumadin management per pharmacy, rate controlled, INR is subtherapeutic 1.5 at the time of discharge, INR to be checked in 2 days after discharge at SNF and dose of coumadin adjusted by PCP Discharge diagnosis: RIght BKA - Time Spent with Patient Total time spent providing and/or coordinating discharge services: Greater than 30 minutes Medical - DS: Exam - Constitutional Vitals: Vital Signs Temp Pulse Pulse Pulse Resp BP BP 09/25/18 15:59 98.2 F 70 16 154/68 09/25/18 11:45 96.4 F L 70 16 150/80 09/25/18 08:08 96.8 F L 84 20 148/90 09/25/18 04:00 97.8 F 80 12 122/84 09/25/18 00:00 98.6 F 87 12 142/58 09/24/18 20:08 98.6 F 89 14 138/58 09/24/18 17:41 99.5 F H 80 145/92 09/24/18 17:17 96 H 154/97 09/24/18 16:47 80 164/97 Pulse Ox 09/25/18 15:59 97 09/25/18 11:45 97 09/25/18 08:08 09/25/18 04:00 96 09/25/18 00:00 95 09/24/18 20:08 92 09/24/18 17:41 09/24/18 17:17 09/24/18 16:47 Intake and Output 09/25/18 09/25/18 09/25/18 05:59 13:59 21:59 Intake Total 0 1160 Output Total 300 545 650 Balance -300 615 -650 Intake: Oral 0 1160 Output: Void Amount 300 545 650 Other: Meal Lunch Percent of Meal Consumed 100% Feeding Ability Independent Urine Appearance Clear Clear Urine Color Straw Urine Odor Normal Additional comments: Constitutional; Afebrile, cooperative, alert, not in distress. Respiratory system: Air Entry equal on both sides, No crackles or wheezing, no rhonchi. CVS- Rate rhythm regular, S1,S2 heard, no gallop, no rub. 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 Medical - DS: Data Labs on day of discharge: Labs from last 24 hours 09/25/18 09/25/18 09/25/18 04:40 04:40 04:40 WBC 5.8 RBC 2.45 L Hgb 8.0 L Hct 24.5 L MCV 99.7 MCH 32.6 MCHC 32.7 RDW 14.9 H Plt Count 212 MPV 8.7 Gran % 70.8 Lymph % (Auto) 18.7 [place] % (Auto) 7.8 Eos % (Auto) 2.2 Baso % (Auto) 0.5 Gran # 4.1 Lymph # (Auto) 1.1 L [place] # (Auto) 0.5 Eos # (Auto) 0.1 Baso # (Auto) 0 PT 17.9 H INR 1.5 H Sodium 137 Potassium 4.1 Chloride 96 Carbon Dioxide 32 H Anion Gap 9.0 BUN 19 Creatinine 2.4 H GFR Calculation 28 Glucose 122 H Uric Acid 2.4 L Calcium 8.9 Phosphorus 2.2 L Magnesium 2.2 Total Bilirubin 0.2 Direct Bilirubin < 0.2 GGT 17 AST 17 ALT < 5 Alkaline Phosphatase 78 Lactate Dehydrogenase 183 Total Protein 6.8 Albumin 3.5 Globulin 3.3 Albumin/Globulin Ratio 1.1 Triglycerides 120 Medical - DS: A/P - Patient/Caregiver Discharge Instructions Activity: as per physical therapy, increase activity as tolerated Diet: Renal/Consistent Carbs Additional Instructions: brace on for transfers INR check in 2 days, results to be followed up by PCP wound care recommendations as per ortho outpatient dialysis as per nephrology, Pt has HD on Monday, monday and monday Go to the ER if fever chest pain,shortness of breath or any other acute concern Follow up with Dr Love as scheduled. Prescriptions: oxyCODONE/APAP [Percocet 5-325 mg] 1 - 2 tab PO Q4H PRN #50 tab PRN Reason: Pain Other Amb Orders: Wound Care/Dressings Location: None Selected - Follow up Plan Follow up with: Mina Juarez PA-C [Physician Telecommunications Cable Jointer] - 10/03/18 9:30 am Disposition: Xfer SNF Prognosis: Fair Rehab Potential: Fair I certify that the patient requires SNF services: Yes Overall status at discharge: patient is progressing back to baseline Medical - DS: Qual - VTE Deep Vein Thrombosis/Pulmonary Embolism Present on Admission: No
[2018-09-25] MEDS: ATORVASTATIN 20 MG TABLET PO SCH (20:03)
[2018-09-25] MEDS: SENNOSIDES 1 TABLET PO SCH (20:03)
[2018-09-26] MEDS: 0.9 % SODIUM CHLORIDE 10 ML SYRINGE IV SCH (04:42)
[2018-09-26] MEDS: oxyCODONE/APAP 5/325MG TABLET PO PRN (04:51)
== END 2018-09-26 06:02 | DRG 239 ==
LOC: MEDSUR 09:06
PROVIDERS: ADMIT Orthopaedic Surgery Foot and Ankle Surgery; ATTEND Internal Medicine

== ENCOUNTER 2021-07-01 09:46 | Inpatient (IN) ==
[2021-07-01] MEDS ORDERED: VANCOMYCIN 1,500 MG in 0.9 % SODIUM CHLORIDE 500 ML IV ONE (10:30)
[2021-07-01] MEDS ORDERED: PIPERACILLIN SODIUM/TAZOBACTAM 4.5 GM in DEXTROSE 5% IN WATER 50 ML IV ONE (10:30)
--- NOTE | 2021-07-01 10:37 | Emergency Department Note ---
HPI General Chief complaint: Extremity Injury, Lower Stated complaint: Left Lower Extremity Infection Time Seen by Provider: 07/01/21 10:18 Source: patient Mode of arrival: wheelchair Limitations: no limitations History of Present Illness HPI Narrative: Narrative: 61 yo M w/ h/o DM2, HTN, ESRD on PD, previous RLE BKA p/w LLE pain, erythema, drainage. He reports that he underwent stenting of the LLE for an arterial blockage about one week ago. Since then he has been having increasing pain, redness, of the LLE. He has developed some ulcerations as well, and notes serous drainage from the wound. He has not had F/C. He was seen by his wound care physician Dr Salazar this AM, who referred him to the ED w/ plan for admission for IV abx. Related Data Home Medications Medication Instructions Recorded Confirmed loperamide 2 mg capsule 4 mg PO Q6H PRN cap 04/17/20 06/04/21 Previous Rx's Medication Instructions Recorded blood-glucose meter,continuous #1 each 09/16/19 blood-glucose sensor #3 each 09/16/19 blood-glucose transmitter #1 each 09/16/19 CPAP- cpap supplies #1 ea 05/28/20 Cpap machine #1 ea 05/28/20 diabetic shoe #1 ea 07/03/20 atorvastatin 40 mg tablet 40 mg PO HS #90 tab 09/18/20 gabapentin 300 mg capsule 300 mg PO QDAY #90 cap 10/19/20 blood-glucose meter #1 ea 10/23/20 blood sugar diagnostic #400 ea 10/28/20 losartan 100 mg tablet 100 mg PO QDAY #30 tab 11/09/20 hydralazine 50 mg tablet 50 mg PO TID #90 tab 02/10/21 torsemide 20 mg tablet 40 mg PO QDAY #180 tab 02/15/21 apixaban 2.5 mg tablet 2.5 mg PO BID #180 tab 03/03/21 cholecalciferol (vitamin D3) 1,250 1,250 mcg PO .Q 14 days #6 cap 03/15/21 mcg (50,000 unit) capsule BD Kelli 2nd Gen Pen Needle 32 See Rx Instructions .ROUTE 03/18/21 gauge x 5/32" .COMPLEX #100 each NS gentamicin 0.1 % topical ointment 1 applic TOPICAL TID #30 g 04/08/21 allopurinol 100 mg tablet 100 mg PO QDAY #30 tab 04/09/21 insulin lispro 100 unit/mL See Rx Instructions .ROUTE 04/19/21 subcutaneous pen .COMPLEX #15 ml levothyroxine 112 mcg tablet 224 mcg PO QDAY #180 tab 04/23/21 trazodone 50 mg tablet 25 mg PO QHS PRN #60 tab 05/17/21 insulin glargine 100 unit/mL (3 60 unit SUBCUT QDAY #60 ml 05/25/21 mL) subcutaneous pen diphenoxylate-atropine 2.5 1 tab PO TID PRN #60 tab 06/04/21 mg-0.025 mg tablet methocarbamol 500 mg tablet 500 mg PO TID #90 tab 06/04/21 cinacalcet 30 mg tablet 30 mg PO QDAY #30 tab 06/09/21 cinacalcet 30 mg tablet 30 mg PO QDAY #30 tab 06/09/21 sevelamer carbonate 800 mg tablet 4,000 mg PO .TID with meals #450 06/15/21 tab sucroferric oxyhydroxide 500 mg 1,000 mg PO .Tid with meals #180 06/15/21 chewable tablet tab semaglutide 1 mg/dose (2 mg/1.5 1 mg SUB-Q QWEEK #3 ml 06/18/21 mL) subcutaneous pen injector hydromorphone 2 mg tablet 2 mg PO TID PRN #90 tab 06/24/21 Allergies Allergy/AdvReac Type Severity Reaction Status Date / Time Beta-Blockers AdvReac Mild Hypotension Verified 06/04/21 12:55 (Beta-Adrenergic Bloc Review of Systems ROS ROS Narrative: Narrative: All systems ED: reviewed and negative except as stated. 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) Diabetic foot ulcer (Chronic) Vitamin D deficiency (Chronic) Anemia (Chronic) Essential hypertension (Chronic) Atrial fibrillation (Chronic) Elbow joint pain (Chronic) Knee joint pain (Chronic) Spinal stenosis in cervical region (Chronic) Cervical radiculopathy (Chronic) Spinal stenosis of thoracic region (Chronic) Thoracic back pain (Chronic) Vision problems (Chronic) Polyarthralgia (Chronic) Gout (Chronic) Encounter for long-term (current) use of high-risk medication (Acute) Anemia (Chronic) Chronic kidney disease, stage V requiring chronic dialysis (Chronic) Osteoarthritis of left knee (Chronic) Paresthesia and pain of both upper extremities (Chronic) intermediate (current) use of anticoagulants (Chronic) Obesity (BMI 30.0-34.9) (Chronic) Gastroenteritis (Acute) Chronic tophaceous gout (Acute) Amputation of lower limb (Chronic) Benign hypertension (Chronic) Hyperlipidemia (Chronic) Diabetic neuropathy (Chronic) Dependence on hemodialysis (Chronic) Chronic pain (Chronic) Low back pain (Chronic) Ulcer of left great toe due to diabetes mellitus (Acute) Degenerative disc disease (Acute) Spinal stenosis, lumbar (Acute) Bradycardia (Chronic) Right knee pain (Acute) Fatigue (Acute) Lumbar stenosis with neurogenic claudication (Chronic) Lumbar degenerative disc disease (Chronic) Chronic renal failure (Chronic) Radiculopathy, lumbar region (Acute) Hypertension (Chronic) MAUDE (obstructive sleep apnea) (Acute) Mixed sleep apnea (Acute) Dysuria (Acute) Long-term use of high-risk medication (Acute) Anxiety (Acute) Depression (Acute) Depression (Acute) Anxiety (Acute) Nausea vomiting and diarrhea (Acute) End stage renal failure on dialysis (Acute) Hypertensive urgency (Acute) ESRD on peritoneal dialysis (Acute) PD catheter dysfunction (Acute) Left leg swelling (Acute) Insomnia (Acute) Diarrhea (Acute) Femoral artery occlusion, left (Acute) Medicare annual wellness visit, initial (Acute) MAUDE on CPAP (Acute) Insomnia due to medical condition (Acute) Secondary hyperparathyroidism of renal origin (Acute) Cellulitis of left lower extremity (Acute) Diabetes (Acute) History of right below knee amputation (Acute) ESRD (end stage renal disease) on dialysis (Acute) Anemia due to chronic kidney disease (Acute) Medical History (Updated 07/01/21 @ 14:30 by lElen Almaraz MD) Abscess Acidosis, renal tubular (08/21/13) Acute on chronic renal failure Amputation of lower limb Anemia Anemia Atrial fibrillation He had been taking warfarin 10 mg daily, follow-up with PCP next week Atrial flutter Bacteremia associated with IV line Benign hypertension Bradycardia Cellulitis of right hand Cervical radiculopathy Chronic kidney disease, stage V requiring chronic dialysis Chronic renal failure on hemodialysis and chronic Coumadin therapy Chronic tophaceous gout Dependence on hemodialysis Diabetes mellitus with proteinuric diabetic nephropathy Diabetic foot ulcer Diabetic neuropathy Edema (09/15/13) Elbow joint pain Elevated erythrocyte sedimentation rate Encounter for long-term (current) use of high-risk medication Essential hypertension Gout Quiescent Gouty arthropathy with tophi Hand pain History of amputation of toe right Hyperlipidemia Hypertension Hyperthyroidism On replacement Rx Hyperuricemia Hypothyroidism Inflammatory arthropathy Insomnia due to medical condition Knee joint pain intermediate (current) use of anticoagulants PCP monitoring for a fib stroke PPx Long-term use of high-risk medication Lumbar degenerative disc disease Lumbar stenosis with neurogenic claudication Medicare annual wellness visit, initial Mixed sleep apnea Musculoskeletal pain Necrotizing cellulitis Obesity (BMI 30.0-34.9) MAUDE on CPAP Osteoarthritis of left knee Osteomyelitis Paresthesia and pain of both upper extremities Polyarthralgia Proteinuria Radiculopathy, lumbar region Right knee pain Sepsis Sepsis affecting skin NECROTIZING skin and soft tissue infection. SEPSIS Uncontrolled diabetes, Anemia, CRF PLAN: HBOT Now later OR debridement / lavage and deep tissue biopsies and cultures. Severe sepsis Spinal stenosis in cervical region Spinal stenosis of thoracic region Thoracic back pain Type 2 diabetes mellitus Type 2 diabetes mellitus, uncontrolled (08/21/13) Ulcer of foot Vision problems Vitamin D deficiency Surgical History (Updated 07/01/21 @ 13:42 by Sherwin Ruelas MD) History of arthroscopy of left shoulder (04/16/15) subacromial decompression and distal clavicle excision History of cervical discectomy Dr. Echevarria History of discectomy 1986-Lumbar L5-S1 History of lumbar discectomy (~1986) L5 Status post below knee amputation of right lower extremity Status post creation of arteriovenous fistula right arm, Dr. Shane Family History Unknown Family history not obtainable due to adoption Social History Smoking Status: Never smoker Alcohol Intake Frequency: a few times a month Substance Use: does not use Exam Narrative Narrative: Narrative: General Limitations: no limitations General appearance: Present alert and in no apparent distress Head Head: Present atraumatic and normocephalic ENT ENT: Present normal oropharynx and mucous membranes moist Chest Chest: Present normal inspection and symmetric chest wall rise Respiratory Respiratory: Present normal lung sounds bilaterally; Absent respiratory distress, rales/crackles, wheezes and stridor Cardiovascular Cardiovascular: Present regular rate, normal rhythm, +S1, +S2 and other (2+ B/L radial pulse. 1+ L DP, 2 sec CR L great toe); Absent systolic murmur and diastolic murmur Adbominal Abdominal: Present soft and normal bowel sounds; Absent distention and tenderness Extremities Extremities: Present other (RLE BKA. LLE w/ near circumferential blanching, [place] warm erythema over the grant, sparing some of the calf. There are 3 eschars ranging from 2cm diameter to 4x3cm. There is serosanguinous drainage on the dressing. Area is warm and TTP. ); Absent pedal edema Neurological Neurological: Present alert and oriented X3 Psychiatric Psychiatric: Present normal affect Skin Skin: Present warm (WNL) and dry Course Vital Signs Vital signs: Vital Signs Temperature 98.1 F 07/01/21 09:47 Pulse Rate 88 07/01/21 09:47 Respiratory Rate 18 07/01/21 09:47 Blood Pressure 114/60 07/01/21 09:47 Pulse Oximetry (%) 98 07/01/21 09:47 Temperature 98.1 F 07/01/21 09:47 Pulse Rate 80 07/01/21 14:02 Respiratory Rate 18 07/01/21 09:47 Blood Pressure 102/56 07/01/21 15:02 Pulse Oximetry (%) 96 07/01/21 14:02 [facility] Narrative Medical decision making narrative: Narrative: 61 yo M w/ h/o PAD, DM2, ESRD on PD p/w LLE pain, redness DDx - sepsis, NSTI, osteo, cellulitis, PAD Pt presented clinically stable, in NAD. He was not clinically septic and ultimately did not meet SIRS criteria. He had no pain out of proportion or neglect, no rapid progression, NSTI was unlikely. Osteo was less likely but could be evaluated further as an inpt. He had WWP extremities and I was not concerned for acute complications of his chronic PAD. Overall evaluation was c/w an extensive diabetic LE cellulitis. I started him on vanc and zosyn. Of note he tolerated zosyn well but had chills/rigors w/ vanc so we held this. He was accepted for admission by the hospitalist w/ Dr Arndt w/ [facility] stating that PD could be accomodated for the pt. Lab Data Lab results reviewed: Yes I reviewed the patient's lab results. Result diagrams: 07/01/21 14:16 07/01/21 10:50 Labs: Lab Results 07/01/21 07/01/21 07/01/21 Range/Units 10:50 10:50 14:16 WBC 8.7 6.6 (4.5-11.0) K/mcL RBC 2.65 L 2.92 L (4.63-6.08) M/mcL Hgb 8.2 L 9.0 L (13.7-17.5) g/dL Hct 26.6 L 28.8 L (40.1-51.0) % MCV 100.4 H 98.6 (80.0-100.0) fL MCH 30.9 30.8 (26.0-34.0) pg MCHC 30.8 L 31.3 (31.0-36.0) g/dL RDW 13.3 13.3 (11.5-14.5) % Plt Count 256 279 (140-440) K/mcL MPV 11.0 H 10.9 H (7.4-10.4) fL Neut % (Auto) 83.1 H 86.6 H (38.0-78.0) % Lymph % (Auto) 5.7 L 7.0 L (15.5-49.0) % [place] % (Auto) 7.1 1.8 (1.0-12.0) % Eos % (Auto) 3.1 3.7 (0.0-7.0) % Baso % (Auto) 1.0 0.9 (0.0-2.0) % Lymph # (Auto) 0.50 L 0.46 L (1.50-4.80) K/mcL [place] # (Auto) 0.62 0.12 (0.10-0.90) K/mcL Eos # (Auto) 0.27 0.24 (0.00-0.70) K/mcL Baso # (Auto) 0.09 0.06 (0.00-0.30) K/mcL Absolute Neutrophils 7.24 5.69 (1.80-8.00) K/mcL VBG Lactic Acid 1.0 (0.5-2.0) mmol/L Sodium 136 (133-145) mmol/L Potassium 4.9 (3.3-5.1) mmol/L Chloride 97 (96-108) mmol/L Carbon Dioxide 20 L (22-30) mmol/L Anion Gap 19.0 H (8.0-16.0) BUN 47 H (8-23) mg/dL Creatinine 10.6 H* (0.7-1.2) mg/dL GFR Calculation 5 Glucose 164 H (70-105) mg/dL Calcium 7.8 L (8.6-10.4) mg/dL Total Bilirubin 0.2 (0.1-1.0) mg/dL AST 31 (<40) U/L ALT 32 (<40) U/L Alkaline Phosphatase 105 (39-117) U/L Total Protein 6.4 (5.9-8.4) gm/dL Albumin 2.6 L (3.2-5.2) gm/dL Globulin 3.8 H (2.2-3.7) gm/dL Albumin/Globulin Ratio 0.7 L (1.0-2.3) Discharge Plan Patient/Caregiver Discharge Instructions Pt seen by ANIMAL CARE WORKER/PA only: No Clinical Impression: Cellulitis of left lower extremity, Diabetes, History of right below knee amputation, ESRD (end stage renal disease) on dialysis, Anemia due to chronic kidney disease Patient Disposition: Xfer As Inpt ([facility]) Follow up with: May Hernandez PA-C [Primary Care Provider] - Prescriptions: No Action loperamide [Imodium A-D] 2 mg capsule 4 mg PO Q6H PRNRF: 0 (DME) CPAP- cpap supplies Qty: 1 RF: 0 (DME) Cpap machine Qty: 1 RF: 0 atorvastatin 40 mg tablet 40 mg PO HS Qty: 90 RF: 3 gabapentin 300 mg capsule 300 mg PO QDAY Qty: 90 RF: 3 (DME) blood-glucose meter Misc See Rx Instructions .ROUTE .MEDSUPPLY Qty: 1 RF: 0 (DME) Blood Glucose Test Strip See Rx Instructions .ROUTE .MEDSUPPLY Qty: 400 RF: 2 losartan 100 mg tablet 100 mg PO QDAY Qty: 30 RF: 11 hydralazine 50 mg tablet 50 mg PO TID Qty: 90 RF: 11 torsemide 20 mg tablet 40 mg PO QDAY Qty: 180 RF: 3 cholecalciferol (vitamin D3) 1,250 mcg (50,000 unit) capsule 1,250 mcg PO .Q 14 days Qty: 6 RF: 3 pen needle, diabetic [BD Kelli 2nd Gen Pen Needle] 32 gauge x 5/32" needle See Rx Instructions .ROUTE .COMPLEX Qty: 100 RF: 1 gentamicin 0.1 % ointment 1 applic topical TID Qty: 30 RF: 11 allopurinol 100 mg tablet 100 mg PO QDAY Qty: 30 RF: 5 insulin lispro [Humalog KwikPen Insulin] 100 unit/mL insulin pen See Rx Instructions .ROUTE .COMPLEX Qty: 15 RF: 2 levothyroxine 112 mcg tablet 224 mcg PO QDAY Qty: 180 RF: 1 Lantus Solostar U-100 Insulin 100 unit/mL (3 mL) insulin pen 60 unit subcut QDAY Qty: 60 RF: 1 cinacalcet 30 mg tablet 30 mg PO QDAY Qty: 30 RF: 3 cinacalcet 30 mg tablet 30 mg PO QDAY Qty: 30 RF: 12 sevelamer carbonate 800 mg tablet 4,000 mg PO .TID with meals Qty: 450 RF: 12 Velphoro 500 mg tablet,chewable 1,000 mg PO .Tid with meals Qty: 180 RF: 12 semaglutide 1 mg/dose (2 mg/1.5 mL) pen injector 1 mg SUB-Q QWEEK Qty: 3 RF: 3 hydromorphone 2 mg tablet 2 mg PO TID PRN (Reason: pain) Qty: 90 RF: 0 (DME) diabetic shoe Qty: 1 RF: 0 (DME) Dexcom G6 Sensor Device See Rx Instructions .ROUTE .MEDSUPPLY Qty: 3 RF: 0 (DME) Dexcom G6 Transmitter Device See Rx Instructions .ROUTE .MEDSUPPLY Qty: 1 RF: 0 (DME) Dexcom State Game Warden Misc See Rx Instructions .ROUTE .MEDSUPPLY Qty: 1 RF: 0 apixaban 2.5 mg tablet 2.5 mg PO BID Qty: 180 RF: 1 diphenoxylate-atropine [Lomotil] 2.5-0.025 mg tablet 1 tab PO TID PRN (Reason: diarrhea) Qty: 60 RF: 1 methocarbamol 500 mg tablet 500 mg PO TID Qty: 90 RF: 0 trazodone 50 mg tablet 25 mg PO QHS PRN (Reason: insomnia) Qty: 60 RF: 1
[2021-07-01 11:53] LABS: Basophils # (Auto) 0.09 K/mcL (0.00-0.30); Eosinophils # (Auto) 0.27 K/mcL (0.00-0.70); Eosinophils % (Auto) 3.1 % (0.0-7.0); Hematocrit 26.6 % (40.1-51.0); Hemoglobin 8.2 g/dL (13.7-17.5); Lymphocytes % (Auto) 5.7 % (15.5-49.0); Mean Cell Volume 100.4 fL (80.0-100.0); Mean Corpuscular HGB Conc 30.8 g/dL (31.0-36.0); Monocytes # (Auto) 0.62 K/mcL (0.10-0.90); Monocytes % (Auto) 7.1 % (1.0-12.0); Neutrophils % (Auto) 83.1 % (38.0-78.0); Platelet Count 256 K/mcL (140-440); RBC 2.65 M/mcL (4.63-6.08); Red Cell Distribution Width 13.3 % (11.5-14.5); WBC 8.7 K/mcL (4.5-11.0)
[2021-07-01 12:14] LABS: ALT/SGPT 32 U/L (<40); AST/SGOT 31 U/L (<40); Albumin 2.6 gm/dL (3.2-5.2); Albumin/Globulin Ratio 0.7 (1.0-2.3); Alkaline Phosphatase 105 U/L (39-117); Bilirubin,Total 0.2 mg/dL (0.1-1.0); Blood Urea Nitrogen 47 mg/dL (8-23); Calcium 7.8 mg/dL (8.6-10.4); Carbon Dioxide 20 mmol/L (22-30); Chloride 97 mmol/L (96-108); Globulin 3.8 gm/dL (2.2-3.7); Glomerular Filtration Rate 5; Glucose 164 mg/dL (70-105)
[2021-07-01] MEDS ORDERED: ACETAMINOPHEN 325 MG TABLET PO ONE (13:42)
[2021-07-01] MEDS ORDERED: CYCLOBENZAPRINE 10 MG TABLET PO ONE (13:49)
--- NOTE | 2021-07-01 14:22 | Nephrology Consult Note ---
HPI Data of Consult Patient: known to practice within the last 3 years Consult date: 07/01/21 Requesting physician: Sherwin Ruelas Primary Care Provider: May Hernandez PA-C Consult Narrative Patient Information: Note initiated : 07/01/21 at 2:21 pm Patient: Bart Pagan 61 y/o M admitted on for Left Lower Extremity Infection. Chief Complaint: Left leg wound Bart Pagan is a 61-year-old male with end stage renal disease on peritoneal dialysis, chronic anemia due to ESRD, hypertension, diabetes mellitus type 2, chronic atrial fibrillation on Apixaban, peripheral vascular disease (heavy calcifications of the femoral artery and the runoff vessels), left lower extremity infected diabetic foot ulcer, admitted on 07/01/21. He was sent from wound care for worsening of left lower extremity infected diabetic foot ulcer which requires IV antibiotics. Nephrology consultation was requested for management of peritoneal dialysis. Chief complaint: Left leg wound Reason for consult: End stage renal disease on peritoneal dialysis. cc:: CC: Constitutional Constitutional: Present chills and weakness EENT Nose, mouth and throat: Absent nasal congestion and sore throat Cardiovascular Cardiovascular: Absent chest pain and palpatations Respiratory Respiratory: Absent cough and dyspnea Gastrointestinal Gastrointestinal: Absent abdominal pain and nausea Integumentary Integumentary: Present wounds Neurological Neurological: Present confusion Psychiatric Psychiatric: Absent anxiety and confusion Allergic/Immunologic Allergic/Immunologic: Absent tongue swelling and uticaria PFSH PFSH All Active Problems (Updated 07/01/21 @ 14:30 by Ellen Almaraz MD) Type 2 diabetes mellitus (Chronic) Type 2 diabetes mellitus, uncontrolled (Chronic 08/21/13) Edema (Chronic 09/15/13) Hyperthyroidism (Chronic) History of discectomy (Chronic) Hyperuricemia (Chronic) Proteinuria (Chronic) Elevated erythrocyte sedimentation rate (Chronic) Musculoskeletal pain (Chronic) Hypothyroidism (Chronic) 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) Diabetic foot ulcer (Chronic) Vitamin D deficiency (Chronic) Anemia (Chronic) Essential hypertension (Chronic) Atrial fibrillation (Chronic) Elbow joint pain (Chronic) Knee joint pain (Chronic) Spinal stenosis in cervical region (Chronic) Cervical radiculopathy (Chronic) Spinal stenosis of thoracic region (Chronic) Thoracic back pain (Chronic) Vision problems (Chronic) Polyarthralgia (Chronic) Gout (Chronic) Encounter for long-term (current) use of high-risk medication (Acute) Anemia (Chronic) Chronic kidney disease, stage V requiring chronic dialysis (Chronic) Osteoarthritis of left knee (Chronic) Paresthesia and pain of both upper extremities (Chronic) 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 (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) use of anticoagulants (Chronic) Obesity (BMI 30.0-34.9) (Chronic) Gastroenteritis (Acute) Chronic tophaceous gout (Acute) Amputation of lower limb (Chronic) Benign hypertension (Chronic) Hyperlipidemia (Chronic) Diabetic neuropathy (Chronic) Dependence on hemodialysis (Chronic) Chronic pain (Chronic) Low back pain (Chronic) Ulcer of left great toe due to diabetes mellitus (Acute) Degenerative disc disease (Acute) Spinal stenosis, lumbar (Acute) Bradycardia (Chronic) Right knee pain (Acute) Fatigue (Acute) Lumbar stenosis with neurogenic claudication (Chronic) Lumbar degenerative disc disease (Chronic) Chronic renal failure (Chronic) Radiculopathy, lumbar region (Acute) Hypertension (Chronic) MAUDE (obstructive sleep apnea) (Acute) Mixed sleep apnea (Acute) Dysuria (Acute) Long-term use of high-risk medication (Acute) Anxiety (Acute) Depression (Acute) Depression (Acute) Anxiety (Acute) Nausea vomiting and diarrhea (Acute) End stage renal failure on dialysis (Acute) Hypertensive urgency (Acute) ESRD on peritoneal dialysis (Acute) PD catheter dysfunction (Acute) Left leg swelling (Acute) Insomnia (Acute) Diarrhea (Acute) Femoral artery occlusion, left (Acute) Medicare annual wellness visit, initial (Acute) MAUDE on CPAP (Acute) Insomnia due to medical condition (Acute) Secondary hyperparathyroidism of renal origin (Acute) Cellulitis of left lower extremity (Acute) Diabetes (Acute) History of right below knee amputation (Acute) ESRD (end stage renal disease) on dialysis (Acute) Anemia due to chronic kidney disease (Acute) Medical History (Updated 07/01/21 @ 14:30 by Ellen Almaraz MD) Abscess Acidosis, renal tubular (08/21/13) Acute on chronic renal failure Amputation of lower limb Anemia Anemia Atrial fibrillation He had been taking warfarin 10 mg daily, follow-up with PCP next week Atrial flutter Bacteremia associated with IV line Benign hypertension Bradycardia Cellulitis of right hand Cervical radiculopathy Chronic kidney disease, stage V requiring chronic dialysis Chronic renal failure on hemodialysis and chronic Coumadin therapy Chronic tophaceous gout Dependence on hemodialysis Diabetes mellitus with proteinuric diabetic nephropathy Diabetic foot ulcer Diabetic neuropathy Edema (09/15/13) Elbow joint pain Elevated erythrocyte sedimentation rate Encounter for long-term (current) use of high-risk medication Essential hypertension Gout Quiescent Gouty arthropathy with tophi Hand pain History of amputation of toe right Hyperlipidemia Hypertension Hyperthyroidism On replacement Rx Hyperuricemia Hypothyroidism Inflammatory arthropathy Insomnia due to medical condition Knee joint pain 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 SEPSIS Uncontrolled diabetes, Anemia, CRF PLAN: HBOT Now later OR debridement / lavage and deep tissue biopsies and cultures. Severe sepsis Spinal stenosis in cervical region Spinal stenosis of thoracic region Thoracic back pain Type 2 diabetes mellitus Type 2 diabetes mellitus, uncontrolled (08/21/13) Ulcer of foot Vision problems Vitamin D deficiency Surgical History (Updated 07/01/21 @ 13:42 by Sherwin Ruelas MD) History of arthroscopy of left shoulder (04/16/15) subacromial decompression and distal clavicle excision History of cervical discectomy Dr. Echevarria History of discectomy 1986-Lumbar L5-S1 History of lumbar discectomy (~1986) L5 Status post below knee amputation of right lower extremity Status post creation of arteriovenous fistula right arm, Dr. Shane Family History Unknown Family history not obtainable due to adoption Social History adopted: Yes household members: alone marital status: single education level: college service: Yes occupational status: employed and unemployed sexually active: No frequency: 1-2 times per week smoking status: Former smoker smoking status stop date: 08/21/04 alcohol intake frequency: a few times a month substance use type: does not use seatbelt use: always working smoke detector in home: Yes firearms in home: No MEDS/ALLERGIES Home Medications and Allergies Home Medications Medication Instructions Recorded Confirmed Type blood-glucose meter,continuous #1 each 09/16/19 06/04/21 Rx blood-glucose sensor #3 each 09/16/19 06/04/21 Rx blood-glucose transmitter #1 each 09/16/19 06/04/21 Rx loperamide 2 mg capsule 4 mg PO Q6H PRN cap 04/17/20 07/01/21 History atorvastatin 40 mg tablet 40 mg PO HS #90 tab 09/18/20 07/01/21 Rx gabapentin 300 mg capsule 300 mg PO QDAY #90 cap 10/19/20 07/01/21 Rx blood-glucose meter #1 ea 10/23/20 06/04/21 Rx blood sugar diagnostic #400 ea 10/28/20 06/04/21 Rx losartan 100 mg tablet 100 mg PO QDAY #30 tab 11/09/20 07/01/21 Rx hydralazine 50 mg tablet 50 mg PO TID #90 tab 02/10/21 07/01/21 Rx torsemide 20 mg tablet 40 mg PO QDAY #180 tab 02/15/21 07/01/21 Rx apixaban 2.5 mg tablet 2.5 mg PO BID #180 tab 03/03/21 07/01/21 Rx cholecalciferol (vitamin D3) 1,250 1,250 mcg PO .Q 14 days #6 cap 03/15/21 07/01/21 Rx mcg (50,000 unit) capsule gentamicin 0.1 % topical ointment 1 applic TOPICAL TID #30 g 04/08/21 07/01/21 Rx allopurinol 100 mg tablet 100 mg PO QDAY #30 tab 04/09/21 07/01/21 Rx insulin lispro 100 unit/mL See Rx Instructions .ROUTE 04/19/21 07/01/21 Rx subcutaneous pen .COMPLEX #15 ml levothyroxine 112 mcg tablet 224 mcg PO QDAY #180 tab 04/23/21 07/01/21 Rx trazodone 50 mg tablet 25 mg PO QHS PRN #60 tab 05/17/21 06/04/21 Rx insulin glargine 100 unit/mL (3 60 unit SUBCUT QDAY #60 ml 05/25/21 07/01/21 Rx mL) subcutaneous pen diphenoxylate-atropine 2.5 1 tab PO TID PRN #60 tab 06/04/21 07/01/21 Rx mg-0.025 mg tablet cinacalcet 30 mg tablet 30 mg PO QDAY #30 tab 06/09/21 07/01/21 Rx sevelamer carbonate 800 mg tablet 4,000 mg PO .TID with meals #450 06/15/21 Rx tab sucroferric oxyhydroxide 500 mg 1,000 mg PO .Tid with meals #180 06/15/21 Rx chewable tablet tab semaglutide 1 mg/dose (2 mg/1.5 1 mg SUB-Q QWEEK #3 ml 06/18/21 Rx mL) subcutaneous pen injector hydromorphone 2 mg tablet 2 mg PO TID PRN #90 tab 06/24/21 07/01/21 Rx methocarbamol 500 mg tablet 500 mg PO TID #90 tab 07/01/21 Rx Allergies Allergy/AdvReac Type Severity Reaction Status Date / Time Beta-Blockers AdvReac Mild Hypotension Verified 06/04/21 12:55 (Beta-Adrenergic Bloc Physical Examination Vital Signs Vital signs: Temp Pulse Resp BP Pulse Ox 98.1 F 105 H 18 142/86 95 07/01/21 09:47 07/01/21 13:47 07/01/21 09:47 07/01/21 13:47 07/01/21 13:47 General Appearance General appearance: appears started age and chronically ill Neck Neck: no JVD Respiratory Respiratory: clear Cardiovascular Cardiology: no murmurs, no rub, no gallops, no edema, regular rate, regular rhythm, normal S1 and normal S2 Gastrointestinal Gastrointestinal: no tenderness Integumentary Integumentary: ulcer Neurologic Neurologic: confused Musculoskeletal Musculoskeletal: deformities Psychiatric Psychiatric: mood/affect appropriate and cooperative Results Lab Results Result Diagrams: 07/01/21 14:16 07/01/21 10:50 Lab results: Most recent lab results Calcium 7.8 mg/dL (8.6-10.4) L 07/01/21 10:50 A/P Assessment and plan (1) ESRD on peritoneal dialysis: Assessment and plan: Bart Pagan is a 61-year-old male with end stage renal disease on peritoneal dialysis, chronic anemia due to ESRD, hypertension, diabetes mellitus type 2, chronic atrial fibrillation on Apixaban, peripheral vascular disease (heavy calcifications of the femoral artery and the runoff vessels), left lower extremity infected diabetic foot ulcer, admitted on 07/01/21. He was sent from wound care for worsening of left lower extremity infected diabetic foot ulcer which requires IV antibiotics. Nephrology consultation was requested for management of peritoneal dialysis. End stage renal disease on peritoneal dialysis. Chronic anemia due to ESRD, managed at [facility] with [facility]. Secondary hyperparathyroidism. Peripheral vascular disease with heavy calcifications of the femoral artery and the runoff vessels. Left lower extremity infected diabetic foot ulcer which requires IV antibiotics. Metabolic acidosis, mild. I discussed the patient with his primary terrazzo roller Dr. Jacinto. He suspected calciphylaxis of the wound and requests a wound biopsy for confirmation. IV Sodium thiosulfate will then be considered at the dialysis unit with switch back to hemodialysis. Recommendations/Plan: Continue CCPD; treatment time 12 hours, total volume 10,500 ml, , 2.5%, fill volume 2,400 ml, four exchanges, last fill 300 ml. Antibiotic dosage for peritoneal dialysis. PRBC transfusion for hemoglobin <7.0 unless symptomatic anemia. Wound biopsy for confirmation of calciphylaxis. 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
--- NOTE | 2021-07-01 14:26 | Internal Med History&Physical ---
HPI History of Present Illness Patient information: Note initiated : 07/01/21 at 2:11 pm Service Date, if different from initiated Date: [] Patient: Bart Pagan a 61 y/o M admitted on for Left Lower Extremity Infection. Chief Complaint: [left leg cellulitis] History of present illness: Mr. Pagan is a 61 year old M history of end-stage renal disease on peritoneal dialysis, type 2 diabetes mellitus, essential hypertension, mixed dyslipidemia, hypothyroidism, obstructive sleep apnea on CPAP, right sided BKA about 3 years ago, peripheral arterial disease status post left leg stents placement 1 week ago, presenting with 3 weeks history of left leg rash, swelling, warmth, and pustular discharge. He was seen in Dr. Cameron office 2 weeks ago. Patient is currently complaining of shaking chills but denies any fever or diaphoresis. He denies any GI upset such as nausea vomiting. He denies any general body weakness. He denies any pain of his left leg. Vital signs at ED presentations significant for mild tachycardia heart rate in the 100s, with rest of the vital signs within normal limits. Labs significant for lack of leukocytosis with WBC 8.7. Hemoglobin and hematocrit 2.65 and 8.2, respectively. It is unclear where the sample was actually accurate or what was it hemolyzed. History significant for serum creatinine level 10.6. Serum lactic acid 1.0. Constitutional Constitutional: Present chills; Absent excessive sweating, fatigue, fever(s) and weakness EENT Eyes: Absent blurry vision, change in vision, loss of vision and other visual disturbances Ears: Absent decreased hearing and tinnitus Nose, mouth and throat: Absent abnormal hearing, dry mouth, headache(s), nasal congestion and sore throat Cardiovascular Cardiovascular: Absent chest pain, chest pain at rest, edema, irregular heart rhythm and palpatations Respiratory Respiratory: Absent cough, dyspnea and wheezing Gastrointestinal Gastrointestinal: Absent abdominal pain, constipation, diarrhea, nausea and vomiting Musculoskeletal Musculoskeletal: Present deformity; Absent back pain, limited range of motion, muscle cramps, muscle weakness and numbness Integumentary Integumentary: Present as per HPI, erythema, lesions, rash, skin ulcer, swelling and wounds Neurological Neurological: Absent focal weakness, headache(s) and numbness Psychiatric Psychiatric: Absent anxiety, depression and hallucinations PFSH PFSH All Active Problems (Updated 07/01/21 @ 13:42 by Sherwin Ruelas MD) Type 2 diabetes mellitus (Chronic) Type 2 diabetes mellitus, uncontrolled (Chronic 08/21/13) Edema (Chronic 09/15/13) Hypertensive renal disease (Chronic 08/21/13) Hyperthyroidism (Chronic) History of discectomy (Chronic) Hyperuricemia (Chronic) Secondary hyperparathyroidism of renal origin (Chronic) Proteinuria (Chronic) Elevated erythrocyte sedimentation rate (Chronic) Musculoskeletal pain (Chronic) Hypothyroidism (Chronic) 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) Diabetic foot ulcer (Chronic) Vitamin D deficiency (Chronic) Anemia (Chronic) Essential hypertension (Chronic) Atrial fibrillation (Chronic) Elbow joint pain (Chronic) Knee joint pain (Chronic) Spinal stenosis in cervical region (Chronic) Cervical radiculopathy (Chronic) Spinal stenosis of thoracic region (Chronic) Thoracic back pain (Chronic) Vision problems (Chronic) Polyarthralgia (Chronic) Gout (Chronic) Encounter for long-term (current) use of high-risk medication (Acute) Anemia (Chronic) Chronic kidney disease, stage V requiring chronic dialysis (Chronic) Osteoarthritis of left knee (Chronic) Paresthesia and pain of both upper extremities (Chronic) 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) Obesity (BMI 30.0-34.9) (Chronic) Gastroenteritis (Acute) Chronic tophaceous gout (Acute) Amputation of lower limb (Chronic) Benign hypertension (Chronic) Hyperlipidemia (Chronic) Diabetic neuropathy (Chronic) Dependence on hemodialysis (Chronic) Chronic pain (Chronic) Low back pain (Chronic) Ulcer of left great toe due to diabetes mellitus (Acute) Degenerative disc disease (Acute) Spinal stenosis, lumbar (Acute) Bradycardia (Chronic) ESRD (end stage renal disease) (Chronic) Right knee pain (Acute) Fatigue (Acute) Lumbar stenosis with neurogenic claudication (Chronic) Lumbar degenerative disc disease (Chronic) Chronic renal failure (Chronic) Radiculopathy, lumbar region (Acute) Hypertension (Chronic) MAUDE (obstructive sleep apnea) (Acute) Mixed sleep apnea (Acute) Dysuria (Acute) Long-term use of high-risk medication (Acute) Anxiety (Acute) Depression (Acute) Depression (Acute) Anxiety (Acute) Nausea vomiting and diarrhea (Acute) End stage renal failure on dialysis (Acute) Hypertensive urgency (Acute) ESRD on peritoneal dialysis (Acute) PD catheter dysfunction (Acute) Left leg swelling (Acute) Insomnia (Acute) Diarrhea (Acute) Femoral artery occlusion, left (Acute) Medicare annual wellness visit, initial (Acute) MAUDE on CPAP (Acute) Insomnia due to medical condition (Acute) 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 (Acute) Secondary hyperparathyroidism of renal origin (Acute) Cellulitis of left lower extremity (Acute) Diabetes (Acute) History of right below knee amputation (Acute) ESRD (end stage renal disease) on dialysis (Acute) Anemia due to chronic kidney disease (Acute) Medical History Abscess Acidosis, renal tubular (08/21/13) Acute on chronic renal failure Amputation of lower limb Anemia Anemia Atrial fibrillation He had been taking warfarin 10 mg daily, follow-up with PCP next week Atrial flutter Bacteremia associated with IV line Benign hypertension Bradycardia Cellulitis of right hand Cervical radiculopathy Chronic kidney disease, stage V requiring chronic dialysis Chronic renal failure on hemodialysis and chronic Coumadin therapy Chronic tophaceous gout Dependence on hemodialysis Diabetes mellitus with proteinuric diabetic nephropathy Diabetic foot ulcer Diabetic neuropathy Edema (09/15/13) Elbow joint pain Elevated erythrocyte sedimentation rate Encounter for long-term (current) use of high-risk medication ESRD (end stage renal disease) HD MWF Essential hypertension Gout Quiescent Gouty arthropathy with tophi Hand pain History of amputation of toe right Hyperlipidemia Hypertension Hypertensive renal disease (08/21/13) BP is a little elevated also proteinuria is worsening => to ESRD after CKD 3 and sepsis/ARF in 2017 Hyperthyroidism On replacement Rx Hyperuricemia Hypothyroidism Inflammatory arthropathy Insomnia due to medical condition Knee joint pain alf (current) use of anticoagulants PCP monitoring for a fib stroke PPx Long-term use of high-risk medication Lumbar degenerative disc disease Lumbar stenosis with neurogenic claudication Medicare annual wellness visit, initial Mixed sleep apnea Musculoskeletal pain Necrotizing cellulitis Obesity (BMI 30.0-34.9) MAUDE on CPAP Osteoarthritis of left knee Osteomyelitis Paresthesia and pain of both upper extremities Polyarthralgia Proteinuria Radiculopathy, lumbar region Right knee pain Secondary hyperparathyroidism of renal origin Will obtain repeat labs and follow On parsabiv at HD unit Sepsis Sepsis affecting skin NECROTIZING skin and soft tissue infection. SEPSIS Uncontrolled diabetes, Anemia, CRF PLAN: HBOT Now later OR debridement / lavage and deep tissue biopsies and cultures. Severe sepsis Spinal stenosis in cervical region Spinal stenosis of thoracic region Thoracic back pain Type 2 diabetes mellitus Type 2 diabetes mellitus, uncontrolled (08/21/13) Ulcer of foot Vision problems Vitamin D deficiency Surgical History History of arthroscopy of left shoulder (04/16/15) subacromial decompression and distal clavicle excision History of cervical discectomy Dr. Echevarria History of discectomy 1986-Lumbar L5-S1 History of lumbar discectomy (~1986) L5 Status post below knee amputation of right lower extremity Status post creation of arteriovenous fistula right arm, Dr. Shane Family History Unknown Family history not obtainable due to adoption Social History adopted: Yes household members: alone marital status: single education level: college service: Yes occupational status: employed and unemployed sexually active: No frequency: 1-2 times per week smoking status: Former smoker smoking status stop date: 08/21/04 alcohol intake frequency: a few times a month substance use type: does not use seatbelt use: always working smoke detector in home: Yes firearms in home: No MEDS/ALLERGIES Home Medications and Allergies Home Medications Medication Instructions Recorded Confirmed Type blood-glucose meter,continuous #1 each 09/16/19 06/04/21 Rx blood-glucose sensor #3 each 09/16/19 06/04/21 Rx blood-glucose transmitter #1 each 09/16/19 06/04/21 Rx loperamide 2 mg capsule 4 mg PO Q6H PRN cap 04/17/20 06/04/21 History CPAP- cpap supplies #1 ea 05/28/20 06/04/21 Rx Cpap machine #1 ea 05/28/20 06/04/21 Rx diabetic shoe #1 ea 07/03/20 06/04/21 Rx atorvastatin 40 mg tablet 40 mg PO HS #90 tab 09/18/20 06/04/21 Rx gabapentin 300 mg capsule 300 mg PO QDAY #90 cap 10/19/20 06/04/21 Rx blood-glucose meter #1 ea 10/23/20 06/04/21 Rx blood sugar diagnostic #400 ea 10/28/20 06/04/21 Rx losartan 100 mg tablet 100 mg PO QDAY #30 tab 11/09/20 06/04/21 Rx hydralazine 50 mg tablet 50 mg PO TID #90 tab 02/10/21 06/04/21 Rx torsemide 20 mg tablet 40 mg PO QDAY #180 tab 02/15/21 06/04/21 Rx apixaban 2.5 mg tablet 2.5 mg PO BID #180 tab 03/03/21 06/04/21 Rx cholecalciferol (vitamin D3) 1,250 1,250 mcg PO .Q 14 days #6 cap 03/15/21 06/04/21 Rx mcg (50,000 unit) capsule BD Kelli 2nd Gen Pen Needle 32 See Rx Instructions .ROUTE 03/18/21 06/04/21 Rx gauge x 5/32" .COMPLEX #100 each NS gentamicin 0.1 % topical ointment 1 applic TOPICAL TID #30 g 04/08/21 06/04/21 Rx allopurinol 100 mg tablet 100 mg PO QDAY #30 tab 04/09/21 06/04/21 Rx insulin lispro 100 unit/mL See Rx Instructions .ROUTE 04/19/21 06/04/21 Rx subcutaneous pen .COMPLEX #15 ml levothyroxine 112 mcg tablet 224 mcg PO QDAY #180 tab 04/23/21 06/04/21 Rx trazodone 50 mg tablet 25 mg PO QHS PRN #60 tab 05/17/21 06/04/21 Rx insulin glargine 100 unit/mL (3 60 unit SUBCUT QDAY #60 ml 05/25/21 06/04/21 Rx mL) subcutaneous pen diphenoxylate-atropine 2.5 1 tab PO TID PRN #60 tab 06/04/21 06/04/21 Rx mg-0.025 mg tablet methocarbamol 500 mg tablet 500 mg PO TID #90 tab 06/04/21 06/04/21 Rx cinacalcet 30 mg tablet 30 mg PO QDAY #30 tab 06/09/21 Rx cinacalcet 30 mg tablet 30 mg PO QDAY #30 tab 06/09/21 Rx sevelamer carbonate 800 mg tablet 4,000 mg PO .TID with meals #450 06/15/21 Rx tab sucroferric oxyhydroxide 500 mg 1,000 mg PO .Tid with meals #180 06/15/21 Rx chewable tablet tab semaglutide 1 mg/dose (2 mg/1.5 1 mg SUB-Q QWEEK #3 ml 06/18/21 Rx mL) subcutaneous pen injector hydromorphone 2 mg tablet 2 mg PO TID PRN #90 tab 06/24/21 Rx Allergies Allergy/AdvReac Type Severity Reaction Status Date / Time Beta-Blockers AdvReac Mild Hypotension Verified 06/04/21 12:55 (Beta-Adrenergic Bloc EXAM Constitutional Vitals: Temp Pulse Resp BP Pulse Ox 36.7 C 105 H 18 142/86 95 07/01/21 09:47 07/01/21 13:47 07/01/21 09:47 07/01/21 13:47 07/01/21 13:47 General appearance: cooperative and no acute distress Head Head exam: Present atraumatic and normocephalic Eye Eye exam: Present EOMI and PERRL ENT ENT exam: Present mucous membranes moist, normal exam and normal external ear exam Neck Neck exam: Present normal inspection; Absent lymphadenopathy, tenderness and thyromegaly Respiratory Respiratory exam: Absent accessory muscle use, respiratory distress and wheezes Cardiovascular Cardiovascular exam: Present normal rate and rhythm; Absent JVD GI/Abdominal GI/Abdominal exam: Present normal bowel sounds and soft; Absent organomegaly and tenderness Rectal Rectal exam: Present deferred Extremities Exam Extremities exam: Present full ROM, normal capillary refill and tenderness; Absent normal inspection Additional comments: Right BKA Neurological Exam Neurological exam: Present alert, CN II-XII intact and oriented X3; Absent motor sensory deficit Psychiatric Psychiatric exam: Present normal affect and normal mood; Absent anxious and depressed Skin Skin exam: Present dry, erythema, rash and warm; Absent intact and normal color Additional comments: Left lower leg covered by wound dressing DATA Data Completed and Pending Labs: Labs from last 24 hours 07/01/21 07/01/21 10:50 10:50 WBC 8.7 RBC 2.65 L Hgb 8.2 L Hct 26.6 L MCV 100.4 H MCH 30.9 MCHC 30.8 L RDW 13.3 Plt Count 256 MPV 11.0 H Neut % (Auto) 83.1 H Lymph % (Auto) 5.7 L [facility] % (Auto) 7.1 Eos % (Auto) 3.1 Baso % (Auto) 1.0 Lymph # (Auto) 0.50 L [facility] # (Auto) 0.62 Eos # (Auto) 0.27 Baso # (Auto) 0.09 Absolute Neutrophils 7.24 VBG Lactic Acid 1.0 Sodium 136 Potassium 4.9 Chloride 97 Carbon Dioxide 20 L Anion Gap 19.0 H BUN 47 H Creatinine 10.6 H* GFR Calculation 5 Glucose 164 H Calcium 7.8 L Total Bilirubin 0.2 AST 31 ALT 32 Alkaline Phosphatase 105 Total Protein 6.4 Albumin 2.6 L Globulin 3.8 H Albumin/Globulin Ratio 0.7 L A/P Assessment and plan (1) Type 2 diabetes mellitus: Status: Chronic Qualifiers: Diabetes mellitus technician terminal and repeater insulin use: with technician terminal and repeater use Diabetes mellitus complication status: with kidney complications Diabetes mellitus complication detail: with chronic kidney disease Chronic kidney disease stage: on chronic dialysis Qualified Code(s): E11.22 - Type 2 diabetes mellitus with diabetic chronic kidney disease; N18.6 - End stage renal disease; Z79.4 - alf (current) use of insulin; Z99.2 - Dependence on renal dialysis (2) Obesity (BMI 30.0-34.9): Status: Chronic (3) Essential hypertension: Status: Chronic (4) Hypothyroidism: Status: Chronic Qualifiers: Hypothyroidism type: acquired Qualified Code(s): E03.9 - Hypothyroidism, unspecified (5) alf (current) use of anticoagulants: Status: Chronic Comment: PCP monitoring for a fib stroke PPx (6) Amputation of lower limb: Status: Chronic (7) Hyperlipidemia: Status: Chronic (8) Diabetic neuropathy: Status: Chronic Qualifiers: Diabetes mellitus type: type 2 Diabetes mellitus complication detail: diabetic autonomic neuropathy Qualified Code(s): E11.43 - Type 2 diabetes mellitus with diabetic autonomic (poly)neuropathy (9) ESRD on peritoneal dialysis: Status: Acute (10) MAUDE on CPAP: Status: Acute (11) Cellulitis of left lower extremity: Status: Acute (12) Anemia due to chronic kidney disease: Status: Acute Narrative A/P Narrative: Assessment and Plans: 1. Left leg cellulitis: Admit to inpatient med surg Dr. Cameron consulted, recs. appreciated. Possible wound debridement later Lactic acid Procalcitonin Blood culture Wound culture cbc w/ auto diff in the AM to trend WBC Tylenol PRN fever Ackerman PRN moderate pain Vancomycin Zosyn Consult wound care team Physical therapy Occupational therapy 2. T2DM with diabetic neuropathy: HgA1c Hold oral hypoglycemics Lantus 60 unit SQ daily Low dose correctional scale insulin AC HS Patient has glucose monitor Hypoglycemia protocol Diabetic diet Gabapentin 3. ESRD on peritoneal dialysis: Consult Dr. Almaraz for dialysis needs, recs. appreciated Continue peritoneal dialysis every evening CMP in the AM to trend kidney functions 4. Anemia associated with ESRD: Repeat cbc to make sure the initial sample was not hemolyzed If Hemoglobin <7.0, will do pRBC transfusion Daily cbc w/ auto diff in the AM to trend H/H 5. Essential HTN: Currently normotensive Continue Losartan and Hydralazine 6. Mixed dyslipidemia: Continue statin therapy 7. MAUDE on CPAP: Continue CPAP at night while sleeping 8. Hypothyroidism: Continue oral thyroid replacement therapy 9. 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 h/o PAD with recent stent placement in right leg: Continue Eliquis Continue statin GI ppx: not currently indicated DVT ppx: Eliquis Code status: Full Prognosis: guarded Disposition: inpatient med surg; PT and OT for placement planning Time Spent With Patient Time: Total time spent is greater than 50% in coordination of care (as documented) at patient's floor/unit and/or counseling patient: Total time spent with greater than 50% in coordination of care (as documented) at patient's floor/unit and/or counseling patient:: Greater than 35 minutes
[2021-07-01 15:01] LABS: Basophils # (Auto) 0.06 K/mcL (0.00-0.30); Basophils % (Auto) 0.9 % (0.0-2.0); Eosinophils # (Auto) 0.24 K/mcL (0.00-0.70); Eosinophils % (Auto) 3.7 % (0.0-7.0); Hematocrit 28.8 % (40.1-51.0); Lymphocytes # (Auto) 0.46 K/mcL (1.50-4.80); Mean Cell Volume 98.6 fL (80.0-100.0); Mean Corpuscular HGB Conc 31.3 g/dL (31.0-36.0); Mean Platelet Volume 10.9 fL (7.4-10.4); Monocytes # (Auto) 0.12 K/mcL (0.10-0.90); Monocytes % (Auto) 1.8 % (1.0-12.0); Neutrophils % (Auto) 86.6 % (38.0-78.0); Platelet Count 279 K/mcL (140-440); RBC 2.92 M/mcL (4.63-6.08); Red Cell Distribution Width 13.3 % (11.5-14.5); WBC 6.6 K/mcL (4.5-11.0)
[2021-07-01] MEDS ORDERED: NON FORMULARY MEDICATION 1 DOSE MISCELL (Cholecalciferol (Vitamin D3) 1,250 mcg (50,000 un PO SCH (15:25)
[2021-07-01] MEDS ORDERED: ONDANSETRON 4 MG/2 ML VIAL IV PRN (15:25)
[2021-07-01] MEDS ORDERED: traZODone HCL 50 MG TABLET PO PRN (15:25)
[2021-07-01] MEDS ORDERED: VANCOMYCIN PER PHARMACY IV SCH (15:25)
[2021-07-01] MEDS ORDERED: ZOLPIDEM 5 MG TABLET PO PRN (15:25)
[2021-07-01] MEDS ORDERED: DEXTROSE 50% 50 ML VIAL IV PRN (15:25)
[2021-07-01] MEDS ORDERED: LOPERAMIDE 2 MG CAPSULE PO PRN (15:25)
[2021-07-01] MEDS ORDERED: IPRATROPIUM/ALBUTEROL 3 ML AMPUL.NEB NEB PRN (15:25)
[2021-07-01] MEDS ORDERED: DEXTROSE 31 GM ORAL.SUSP PO PRN (15:25)
[2021-07-01] MEDS: INSULIN LISPRO 1 UNIT/0.01 ML UNIT SQ SCH ×2 (16:04→21:35)
[2021-07-01] MEDS: SEVELAMER 800 MG TABLET PO SCH (17:00)
[2021-07-01] MEDS: METHOCARBAMOL 500 MG TABLET PO SCH ×2 (17:00→21:37)
[2021-07-01 17:22] LABS: Hemoglobin A1C 8.2 % Hgb (4.0-6.0)
[2021-07-01] MEDS: hydrALAZINE 25 MG TABLET PO SCH (21:36)
[2021-07-01] MEDS: GENTAMICIN 0.1% TOPICAL SCH (21:37)
[2021-07-01] MEDS: APIXABAN 5 MG TABLET PO SCH (21:37)
[2021-07-01] MEDS: ATORVASTATIN 40 MG TABLET PO SCH (21:37)
[2021-07-01] MEDS: DOCUSATE SODIUM 100 MG CAPSULE PO SCH (21:37)
[2021-07-01] MEDS: PIPERACILLIN SODIUM/TAZOBACTAM 2.25 GM in DEXTROSE 5% IN WATER 50 ML IV SCH (21:38)
[2021-07-01] MEDS: 0.9 % SODIUM CHLORIDE 10 ML SYRINGE IV SCH (21:38)
[2021-07-01] MEDS: SENNOSIDES 1 TABLET PO SCH (21:38)
[2021-07-02] MEDS: 0.9 % SODIUM CHLORIDE 10 ML SYRINGE IV SCH ×3 (06:06→22:03)
[2021-07-02] MEDS: PIPERACILLIN SODIUM/TAZOBACTAM 2.25 GM in DEXTROSE 5% IN WATER 50 ML IV SCH ×3 (06:06→21:45)
--- NOTE | 2021-07-02 08:32 | Nephrology Progress Note ---
SUBJECTIVE Subjective Patient information: Note initiated : 07/02/21 at 8:25 am Patient: Bart Pagan 61 y/o M admitted on 07/01/21 for Left Lower Extremity Infection. Chief Complaint: Left leg wound Pertinent ROS: Left leg wound No significant fluid overload Constitutional Vitals: Vital Signs Temp Pulse Resp BP Pulse Ox 97 F 63 12 96/64 97 07/02/21 07:09 07/02/21 07:09 07/02/21 07:09 07/02/21 07:09 07/02/21 07:09 Period Temp Pulse Resp BP Sys/Mancini Pulse Ox Last 24 Hr 97 F-98.2 F 63-105 12-20 96-148/56-101 92-99 Intake and Output 07/01/21 07/02/21 07/02/21 21:59 05:59 13:59 Intake Total 0 410 450 Balance 0 410 450 Weight 247 lb 1 oz Intake & Output: Intake & Output 07/01/21 07/02/21 07/02/21 21:59 05:59 13:59 Intake Total 0 410 450 Balance 0 410 450 Weight 247 lb 1 oz Intake: IV 50 50 Zosyn 2.25 gm In Dextrose 5% in 50 50 Water 50 ml @ 100 mls/hr IV Q8H [facility] Rx#:[id number] Oral 0 360 400 Other: Meal jello Percent of Meal Consumed 100% Feeding Ability Independent # Voids 1 # Bowel Movements 1 General appearance: cooperative and no acute distress Head Head exam: Present normal inspection Eye Eye exam: Present normal appearance ENT ENT exam: Present mucous membranes moist Respiratory Respiratory exam: Absent respiratory distress Cardiovascular Cardiovascular exam: Present normal rate and rhythm GI/Abdominal GI/Abdominal exam: Present soft; Absent tenderness Extremities Exam Extremities exam: Absent joint swelling or pedal edema Neurological Exam Neurological exam: Present alert and oriented X3 Psychiatric Psychiatric exam: Present normal affect and normal mood Skin Skin exam: Present warm; Absent rash A/P Assessment and plan (1) ESRD on peritoneal dialysis: Assessment and plan: Bart Pagan is a 61-year-old male with end stage renal disease on peritoneal dialysis, chronic anemia due to ESRD, hypertension, diabetes mellitus type 2, chronic atrial fibrillation on Apixaban, peripheral vascular disease (heavy calcifications of the femoral artery and the runoff vessels), left lower extremity infected diabetic foot ulcer, admitted on 07/01/21. He was sent from wound care for worsening of left lower extremity infected diabetic foot ulcer which requires IV antibiotics. Nephrology consultation was requested for saima edgar of peritoneal dialysis. End stage renal disease on peritoneal dialysis. Chronic anemia due to ESRD, managed at the [facility] clinic with Carlos. Secondary hyperparathyroidism. Peripheral vascular disease with heavy calcifications of the femoral artery and the runoff vessels. Left lower extremity infected diabetic foot ulcer which requires IV antibiotics. Metabolic acidosis, mild. 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 Jacinto. He suspected calciphylaxis of the wound and requests a wound biopsy for confirmation. IV Sodium thiosulfate will then be considered at the dialysis unit with switch back to hemodialysis. i also discussed the patient with Dr. Cameron regarding further management. Progress: CCPD; treatment time 12 hours, total volume 10,500 ml, 2.5%, fill volume 2,400 ml, four exchanges, last fill 300 ml. Recommendations/Plan: Continue CCPD as inpatient. He will need to switch to intermittent hemodialysis for SNF discharge. Switching to hemodialysis also recommended for better clearance. Antibiotic dosage for peritoneal dialysis. PRBC transfusion for hemoglobin <7.0 unless symptomatic anemia. Wound biopsy for confirmation of calciphylaxis. 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
[2021-07-02 09:06] LABS: Basophils # (Auto) 0.06 K/mcL (0.00-0.30); Basophils % (Auto) 0.8 % (0.0-2.0); Eosinophils # (Auto) 0.39 K/mcL (0.00-0.70); Eosinophils % (Auto) 5.3 % (0.0-7.0); Hematocrit 24.5 % (40.1-51.0); Hemoglobin 7.7 g/dL (13.7-17.5); Lymphocytes # (Auto) 0.68 K/mcL (1.50-4.80); Lymphocytes % (Auto) 9.2 % (15.5-49.0); Mean Cell Volume 99.6 fL (80.0-100.0); Mean Corpuscular HGB Conc 31.4 g/dL (31.0-36.0); Mean Platelet Volume 10.9 fL (7.4-10.4); Monocytes # (Auto) 0.63 K/mcL (0.10-0.90); Monocytes % (Auto) 8.5 % (1.0-12.0); Neutrophils % (Auto) 76.2 % (38.0-78.0); Platelet Count 263 K/mcL (140-440); RBC 2.46 M/mcL (4.63-6.08); Red Cell Distribution Width 13.4 % (11.5-14.5); WBC 7.4 K/mcL (4.5-11.0)
[2021-07-02] MEDS: INSULIN LISPRO 1 UNIT/0.01 ML UNIT SQ SCH ×4 (09:11→21:47)
[2021-07-02] MEDS: INSULIN GLARGINE, HUMAN 1 UNIT/0.01 ML SQ SCH (09:12)
[2021-07-02] MEDS: GABAPENTIN 300 MG CAPSULE PO SCH (09:12)
[2021-07-02] MEDS: SEVELAMER 800 MG TABLET PO SCH ×3 (09:12→16:27)
[2021-07-02] MEDS: HYDROmorphone 2 MG TABLET PO PRN ×3 (09:13→20:24)
[2021-07-02] MEDS: CINACALCET 30 MG TABLET PO SCH (09:13)
[2021-07-02] MEDS: METHOCARBAMOL 500 MG TABLET PO SCH ×3 (09:13→21:44)
[2021-07-02] MEDS: LEVOTHYROXINE SODIUM 112 MCG TABLET PO SCH (09:14)
[2021-07-02] MEDS: TORSEMIDE 10 MG TABLET PO SCH (09:14)
[2021-07-02] MEDS: ALLOPURINOL 100 MG TABLET PO SCH (09:14)
[2021-07-02] MEDS: APIXABAN 5 MG TABLET PO SCH ×2 (09:14→21:45)
[2021-07-02] MEDS: DOCUSATE SODIUM 100 MG CAPSULE PO SCH ×2 (09:25→21:47)
[2021-07-02 09:54] LABS: ALT/SGPT 26 U/L (<40); AST/SGOT 19 U/L (<40); Albumin 2.6 gm/dL (3.2-5.2); Albumin/Globulin Ratio 0.8 (1.0-2.3); Alkaline Phosphatase 99 U/L (39-117); Bilirubin,Total 0.2 mg/dL (0.1-1.0); Blood Urea Nitrogen 46 mg/dL (8-23); Calcium 6.9 mg/dL (8.6-10.4); Carbon Dioxide 20 mmol/L (22-30); Chloride 95 mmol/L (96-108); Globulin 3.3 gm/dL (2.2-3.7); Glomerular Filtration Rate 4; Glucose 184 mg/dL (70-105)
[2021-07-02] MEDS: LOSARTAN 50 MG TABLET PO SCH (10:16)
[2021-07-02] MEDS: hydrALAZINE 25 MG TABLET PO SCH ×3 (10:16→21:44)
[2021-07-02] MEDS: GENTAMICIN 0.1% TOPICAL SCH ×3 (10:17→21:47)
--- NOTE | 2021-07-02 12:29 | Internal Med Progress Note ---
SUBJECTIVE Subjective Patient information: Note initiated : 07/02/21 at 12:22 pm Service Date, if different from initiated Date: [] Patient: Bart Pagan a 61 y/o M admitted on 07/01/21 for Left Lower Extremity Infection. Chief Complaint: [] Interval history: History of present illness: Mr. Pagan is a 61 year old M history of end-stage renal disease on peritoneal dialysis, type 2 diabetes mellitus, essential hypertension, mixed dyslipidemia, hypothyroidism, obstructive sleep apnea on CPAP, right sided BKA about 3 years ago, peripheral arterial disease status post left leg stents placement 1 week ago, presenting with 3 weeks history of left leg rash, swelling, warmth, and pustular discharge. He was seen in Dr. Cameron office 2 weeks ago. Patient is currently complaining of shaking chills but denies any fever or diaphoresis. He denies any GI upset such as nausea vomiting. He denies any general body weakness. He denies any pain of his left leg. Vital signs at ED presentations significant for mild tachycardia heart rate in the 100s, with rest of the vital signs within normal limits. Labs significant for lack of leukocytosis with WBC 8.7. Hemoglobin and hematocrit 2.65 and 8.2, respectively. It is unclear where the sample was actually accurate or what was it hemolyzed. History significant for serum creatinine level 10.6. Serum lactic acid 1.0. 07/02: Afebrile overnight. Wound and blood cultures no growth to date. c/o moderate aching and tingling of his left lower leg. Denies nausea or vomiting. Denies f ever, chills, or sweating. Constitutional Vitals: Vital Signs Temp Pulse Resp BP Pulse Ox 36.3 C 68 16 116/62 98 07/02/21 11:47 07/02/21 11:47 07/02/21 11:47 07/02/21 11:47 07/02/21 11:47 Period Temp Pulse Resp BP Sys/Mancini Pulse Ox Last 24 Hr 36.1 C-36.8 C 63-105 12-20 96-148/56-101 94-99 Intake and Output 07/01/21 07/02/21 07/02/21 21:59 05:59 13:59 Intake Total 0 410 570 Balance 0 410 570 Weight 112.066 kg Intake & Output: Intake & Output 07/01/21 07/02/21 07/02/21 21:59 05:59 13:59 Intake Total 0 410 570 Balance 0 410 570 Weight 112.066 kg Intake: IV 50 50 Zosyn 2.25 gm In Dextrose 5% in 50 50 Water 50 ml @ 100 mls/hr IV Q8H [facility] Rx#:[id number] Oral 0 360 520 Other: Meal jello Breakfast Percent of Meal Consumed 100% 100% Feeding Ability Independent Independent Stool Size Moderate Stool Color Brown Stool Consistency Liquid Loose # Voids 1 # Bowel Movements 1 2 Head Head exam: Present atraumatic and normal inspection Eye Eye exam: Present normal appearance ENT ENT exam: Present mucous membranes moist, normal exam and normal external ear exam Neck Neck exam: Present normal inspection Respiratory Respiratory exam: Present normal respiratory exam Cardiovascular Cardiovascular exam: Present irregular rhythm Additional comments: Right arm AV fistula GI/Abdominal GI/Abdominal exam: Present normal bowel sounds Extremities Exam Extremities exam: Present full ROM and tenderness; Absent normal inspection Additional comments: Right BKA Back Exam Back exam: Present normal inspection Neurological Exam Neurological exam: Present alert and oriented X3 Skin Skin exam: Present erythema and warm; Absent intact, normal color or vesicles Additional comments: Left lower leg with erythematic rash with central eschar. Warmth, swelling, tenderness to palpation. OBJ DATA Labs CBC & Chem 7: 07/02/21 07:46 07/02/21 07:46 Labs: Abnormal Lab Results 07/02/21 07/02/21 07/01/21 07:46 07:46 14:16 RBC 2.46 L Hgb 7.7 L Hct 24.5 L MCV MCHC MPV 10.9 H Neut % (Auto) Lymph % (Auto) 9.2 L Lymph # (Auto) 0.68 L Sodium 132 L Chloride 95 L Carbon Dioxide 20 L Anion Gap 17.0 H BUN 46 H Creatinine 10.9 H* Glucose 184 H Hemoglobin A1c 8.2 H Calcium 6.9 L Albumin 2.6 L Globulin Albumin/Globulin Ratio 0.8 L Procalcitonin 07/01/21 07/01/21 07/01/21 14:16 14:15 10:50 RBC 2.92 L Hgb 9.0 L Hct 28.8 L MCV MCHC MPV 10.9 H Neut % (Auto) 86.6 H Lymph % (Auto) 7.0 L Lymph # (Auto) 0.46 L Sodium Chloride Carbon Dioxide 20 L Anion Gap 19.0 H BUN 47 H Creatinine 10.6 H* Glucose 164 H Hemoglobin A1c Calcium 7.8 L Albumin 2.6 L Globulin 3.8 H Albumin/Globulin Ratio 0.7 L Procalcitonin 0.43 H 07/01/21 10:50 RBC 2.65 L Hgb 8.2 L Hct 26.6 L MCV 100.4 H MCHC 30.8 L MPV 11.0 H Neut % (Auto) 83.1 H Lymph % (Auto) 5.7 L Lymph # (Auto) 0.50 L Sodium Chloride Carbon Dioxide Anion Gap BUN Creatinine Glucose Hemoglobin A1c Calcium Albumin Globulin Albumin/Globulin Ratio Procalcitonin Meds: Medications Acetaminophen (Acetaminophen 325 Mg Tablet) 650 mg PO Q6HP PRN; Protocol PRN Reason: Per Pain Protocol/Fever > 101 Albuterol/Ipratropium (Ipratropium/Albuterol 3 Ml Ampul.Neb) 3 ml NEB Q4HRT PRN PRN Reason: Wheezing Allopurinol (Allopurinol 100 Mg Tablet) 100 mg PO QDAY [facility] Last Admin: 07/02/21 09:14 Dose: 100 mg Documented by: Apixaban (Apixaban 5 Mg Tablet) 2.5 mg PO BID [facility] Last Admin: 07/02/21 09:14 Dose: 2.5 mg Documented by: Atorvastatin Calcium (Atorvastatin 40 Mg Tablet) 40 mg PO HS [facility] Last Admin: 07/01/21 21:37 Dose: 40 mg Documented by: Cinacalcet (Cinacalcet 30 Mg Tablet) 30 mg PO QDAY [facility] Last Admin: 07/02/21 09:13 Dose: 30 mg Documented by: Collagenase (Collagenase Top Oint Tube 30gm) 1 dose TOPICAL DAILY [facility] Dextrose (Dextrose 50% 50 Ml Vial) 0 ml IV UD PRN PRN Reason: Hypoglycemia Diagnostic Test (Pha) (Accu-Chek 1 Each Strip) 1 each FS ACHS [facility] Last Admin: 07/02/21 12:14 Dose: 1 each Documented by: Diphenoxylate HCl/Atropine (Diphenoxylate Hcl/Atropine 1 Tablet) 1 tab PO TID PRN PRN Reason: diarrhea Docusate Sodium (Docusate Sodium 100 Mg Capsule) 100 mg PO BID [facility] Last Admin: 07/02/21 09:25 Dose: Not Given Documented by: Gabapentin (Gabapentin 300 Mg Capsule) 300 mg PO QDAY [facility] Last Admin: 07/02/21 09:12 Dose: 300 mg Documented by: Glucose (Dextrose 31 Gm Oral.Susp) 15 gm PO PRN PRN PRN Reason: Hypoglycemia Hydralazine HCl (Hydralazine 25 Mg Tablet) 50 mg PO TID [facility] Last Admin: 07/02/21 10:16 Dose: 50 mg Documented by: Hydromorphone HCl (Hydromorphone 2 Mg Tablet) 2 mg PO TIDP PRN; Protocol PRN Reason: pain Last Admin: 07/02/21 09:13 Dose: 2 mg Documented by: Piperacillin Sod/Tazobactam (Sod 2.25 gm/ Dextrose) 50 mls @ 100 mls/hr IV Q8H [facility]; Protocol Last Infusion: 07/02/21 06:47 Dose: Infused Documented by: Insulin Glargine (Insulin Glargine, Human 1 Unit/0.01 Ml) 60 unit SQ QDAY [facility] Last Admin: 07/02/21 09:12 Dose: 60 units Documented by: Insulin Human Lispro (Insulin Lispro 1 Unit/0.01 Ml Unit) 0 unit SQ ACHS [facility]; Protocol Last Admin: 07/02/21 12:14 Dose: Not Given Documented by: Levothyroxine Sodium (Levothyroxine Sodium 112 Mcg Tablet) 224 mcg PO QDAY [facility] Last Admin: 07/02/21 09:14 Dose: 224 mcg Documented by: Loperamide HCl (Loperamide 2 Mg Capsule) 4 mg PO Q6H PRN PRN Reason: Loose Stool Losartan Potassium (Losartan 50 Mg Tablet) 100 mg PO DAILY [facility] Last Admin: 07/02/21 10:16 Dose: 100 mg Documented by: Methocarbamol (Methocarbamol 500 Mg Tablet) 500 mg PO TID [facility] Last Admin: 07/02/21 09:13 Dose: 500 mg Documented by: Ondansetron HCl (Ondansetron 4 Mg/2 Ml Vial) 4 mg IV Q6HP PRN PRN Reason: Nausea And Vomiting Gentamicin 0.1 % (Ointment) 1 dose TOPICAL TID [facility] Last Admin: 07/02/21 10:17 Dose: Not Given Documented by: Sucroferric Oxyhydroxide [ Velphoro] 500 Mg Tablet 2 dose PO TIDCC [facility] Last Admin: 07/02/21 10:17 Dose: Not Given Documented by: Senna (Sennosides 1 Tablet) 2 tab PO [facility] Last Admin: 07/01/21 21:38 Dose: Not Given Documented by: Sevelamer Carbonate (Sevelamer 800 Mg Tablet) 2,400 mg PO TIDCC [facility] Sodium Chloride (0.9 % Sodium Chloride 10 Ml Syringe) 10 ml IV Q8 [facility] Last Admin: 07/02/21 06:06 Dose: 10 ml Documented by: Torsemide (Torsemide 10 Mg Tablet) 40 mg PO DAILY [facility] Last Admin: 07/02/21 09:14 Dose: 40 mg Documented by: Trazodone HCl (Trazodone Hcl 50 Mg Tablet) 25 mg PO QHS PRN PRN Reason: insomnia Vancomycin HCl (Vancomycin Per Pharmacy) 1 order IV [facility] [place] Protocol Zolpidem Tartrate (Zolpidem 5 Mg Tablet) 5 mg PO HSP PRN PRN Reason: Insomnia A/P Assessment and plan (1) Type 2 diabetes mellitus: Status: Chronic Qualifiers: Diabetes mellitus shelter insulin use: with shelter use Diabetes mellitus complication status: with kidney complications Diabetes mellitus complication detail: with chronic kidney disease Chronic kidney disease stage: on chronic dialysis Qualified Code(s): E11.22 - Type 2 diabetes mellitus with diabetic chronic kidney disease; N18.6 - End stage renal disease; Z79.4 - detention (current) use of insulin; Z99.2 - Dependence on renal dialysis (2) Obesity (BMI 30.0-34.9): Status: Chronic (3) Essential hypertension: Status: Chronic (4) Hypothyroidism: Status: Chronic Qualifiers: Hypothyroidism type: acquired Qualified Code(s): E03.9 - Hypothyroidism, unspecified (5) detention (current) use of anticoagulants: Status: Chronic Comment: PCP monitoring for a fib stroke PPx (6) Amputation of lower limb: Status: Chronic (7) Hyperlipidemia: Status: Chronic (8) Diabetic neuropathy: Status: Chronic Qualifiers: Diabetes mellitus type: type 2 Diabetes mellitus complication detail: diabetic autonomic neuropathy Qualified Code(s): E11.43 - Type 2 diabetes mellitus with diabetic autonomic (poly)neuropathy (9) ESRD on peritoneal dialysis: Status: Acute (10) MAUDE on CPAP: Status: Acute (11) Cellulitis of left lower extremity: Status: Acute (12) Anemia due to chronic kidney disease: Status: Deleted Narrative A/P Narrative: Assessment and Plans: 1. Left leg cellulitis: DDx: calciphylaxis Stays in inpatient med surg Dr. Cameron consulted, recs. appreciated-->chemical debridement, wound culture, possible skin biopsy Lactic acid Procalcitonin 0.43 Blood culture, no growth to date Wound culture, no growth to date cbc w/ auto diff in the AM to trend WBC Tylenol PRN fever Ezel PRN moderate pain Vancomycin Zosyn Consult wound care team Physical therapy Occupational therapy 2. T2DM with diabetic neuropathy: HgA1c Hold oral hypoglycemics Lantus 60 unit SQ daily Low dose correctional scale insulin AC HS Patient has glucose monitor Hypoglycemia protocol Diabetic diet Gabapentin 3. ESRD on peritoneal dialysis: Consult Dr. Almaraz for dialysis needs, recs. appreciated Continue peritoneal dialysis every evening CMP in the AM to trend kidney functions Would switch to hemodialysis after being discharged from hospital 4. Anemia associated with ESRD: Daily cbc w/ auto diff in the AM to trend H/H 5. Essential HTN: Currently normotensive Continue Losartan and Hydralazine 6. Mixed dyslipidemia: Continue statin therapy 7. MAUDE on CPAP: Continue CPAP at night while sleeping 8. Hypothyroidism: Continue oral thyroid replacement therapy 9. 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 h/o PAD with recent stent placement in right leg: Continue Eliquis Continue statin GI ppx: not currently indicated DVT ppx: Eliquis Code status: Full Prognosis: guarded Disposition: inpatient med surg; PT and OT for placement planning Time Spent With Patient Time: Total time spent is greater than 50% in coordination of care (as documented) at patient's floor/unit and/or counseling patient: Total time spent with greater than 50% in coordination of care (as documented) at patient's floor/unit and/or counseling patient:: Greater than 35 minutes QUALITY Stroke Symptom Onset Unknown: No VTE Deep Vein Thrombosis/Pulmonary Embolism Present on Admission: No
[2021-07-02] MEDS: COLLAGENASE TOP OINT TUBE 30GM TOPICAL SCH (12:45)
--- NOTE | 2021-07-02 12:52 | General Surgery Consult Note ---
HPI Data of Consult Consult date: 07/02/21 Requesting physician: Earl Reina Primary Care Provider: May Hernandez PA-C Consult Narrative Patient Information: Note initiated : 07/02/21 at 12:36 pm Service Date, if different from initiated Date: [] Patient: Bart Pagan 61 y/o M admitted on 07/01/21 for Left Lower Extremity Infection. Chief Complaint: [] Chief complaint: Continuity of wound care Reason for consult: LEFT lateral leg wounds. S/P angioplasty / stents cc:: CC: Earl Reina MD Patient is well known to staff at [facility] and wound center. He was admitted via ER last evening. Infected wounds LEFT lateral leg, with CSSSI, cellulitis. Patient with h/o DM ESRD, A fib, PAD, Right BKA LEFT LE revascularization angioplasty and stent LEFT infra popliteal arteries on 06/22/[address] ALAN. . Review of Systems All systems: reviewed and no additional remarkable complaints except as stated Constitutional Additional comments: Discomfort and redness of left lateral leg wound sites with serous / blood tinged drainage Integumentary Additional comments: CSSSI with dry necrosis / nephrocalcinosis of skin and sub cutaneous tissues LEFT lateral leg. Neurological Additional comments: Diabetes with peripheral neuropathy Endocrine Additional comments: IDDM Hematologic/Lymphatic Additional comments: Anemia due to ESRD PFSH PFSH All Active Problems (Updated 07/01/21 @ 13:42 by Sherwin Ruelas MD) Anemia in ESRD (end-stage renal disease) (Chronic) Type 2 diabetes mellitus (Chronic) Type 2 diabetes mellitus, uncontrolled (Chronic 08/21/13) Edema (Chronic 09/15/13) Hyperthyroidism (Chronic) History of discectomy (Chronic) Hyperuricemia (Chronic) Proteinuria (Chronic) Elevated erythrocyte sedimentation rate (Chronic) Musculoskeletal pain (Chronic) Hypothyroidism (Chronic) 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) Diabetic foot ulcer (Chronic) Vitamin D deficiency (Chronic) Anemia (Chronic) Essential hypertension (Chronic) Atrial fibrillation (Chronic) Elbow joint pain (Chronic) Knee joint pain (Chronic) Spinal stenosis in cervical region (Chronic) Cervical radiculopathy (Chronic) Spinal stenosis of thoracic region (Chronic) Thoracic back pain (Chronic) Vision problems (Chronic) Polyarthralgia (Chronic) Gout (Chronic) Encounter for long-term (current) use of high-risk medication (Acute) Osteoarthritis of left knee (Chronic) Paresthesia and pain of both upper extremities (Chronic) senior living (current) use of anticoagulants (Chronic) Obesity (BMI 30.0-34.9) (Chronic) Gastroenteritis (Acute) Chronic tophaceous gout (Acute) Amputation of lower limb (Chronic) Benign hypertension (Chronic) Hyperlipidemia (Chronic) Diabetic neuropathy (Chronic) Dependence on hemodialysis (Chronic) Chronic pain (Chronic) Low back pain (Chronic) Ulcer of left great toe due to diabetes mellitus (Acute) Degenerative disc disease (Acute) Spinal stenosis, lumbar (Acute) Bradycardia (Chronic) Right knee pain (Acute) Fatigue (Acute) Lumbar stenosis with neurogenic claudication (Chronic) Lumbar degenerative disc disease (Chronic) Chronic renal failure (Chronic) Radiculopathy, lumbar region (Acute) Hypertension (Chronic) MAUDE (obstructive sleep apnea) (Acute) Mixed sleep apnea (Acute) Dysuria (Acute) Long-term use of high-risk medication (Acute) Anxiety (Acute) Depression (Acute) Depression (Acute) Anxiety (Acute) Nausea vomiting and diarrhea (Acute) End stage renal failure on dialysis (Acute) Hypertensive urgency (Acute) ESRD on peritoneal dialysis (Acute) PD catheter dysfunction (Acute) Left leg swelling (Acute) Insomnia (Acute) Diarrhea (Acute) Femoral artery occlusion, left (Acute) Medicare annual wellness visit, initial (Acute) MAUDE on CPAP (Acute) Insomnia due to medical condition (Acute) Secondary hyperparathyroidism of renal origin (Acute) Cellulitis of left lower extremity (Acute) Diabetes (Acute) History of right below knee amputation (Acute) Medical History (Updated 07/02/21 @ 08:37 by Ellen Almaraz MD) Abscess Acidosis, renal tubular (08/21/13) Acute on chronic renal failure Amputation of lower limb Anemia Atrial fibrillation He had been taking warfarin 10 mg daily, follow-up with PCP next week Atrial flutter Bacteremia associated with IV line Benign hypertension Bradycardia Cellulitis of right hand Cervical radiculopathy Chronic renal failure on hemodialysis and chronic Coumadin therapy Chronic tophaceous gout Dependence on hemodialysis Diabetes mellitus with proteinuric diabetic nephropathy Diabetic foot ulcer Diabetic neuropathy Edema (09/15/13) Elbow joint pain Elevated erythrocyte sedimentation rate Encounter for long-term (current) use of high-risk medication Essential hypertension Gout Quiescent Gouty arthropathy with tophi Hand pain History of amputation of toe right Hyperlipidemia Hypertension Hyperthyroidism On replacement Rx Hyperuricemia Hypothyroidism Inflammatory arthropathy Insomnia due to medical condition Knee joint pain 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 SEPSIS Uncontrolled diabetes, Anemia, CRF PLAN: HBOT Now later OR debridement / lavage and deep tissue biopsies and cultures. Severe sepsis Spinal stenosis in cervical region Spinal stenosis of thoracic region Thoracic back pain Type 2 diabetes mellitus Type 2 diabetes mellitus, uncontrolled (08/21/13) Ulcer of foot Vision problems Vitamin D deficiency Surgical History (Updated 07/01/21 @ 13:42 by Sherwin Ruleas MD) History of arthroscopy of left shoulder (04/16/15) subacromial decompression and distal clavicle excision History of cervical discectomy Dr. Echevarria History of discectomy 1986-Lumbar L5-S1 History of lumbar discectomy (~1986) L5 Status post below knee amputation of right lower extremity Status post creation of arteriovenous fistula right arm, Dr. Alan Family History Unknown Family history not obtainable due to adoption Social History adopted: Yes household members: alone marital status: single education level: college service: Yes occupational status: employed and unemployed sexually active: No frequency: 1-2 times per week smoking status: Former smoker smoking status stop date: 08/21/04 alcohol intake frequency: a few times a month substance use type: does not use seatbelt use: always working smoke detector in home: Yes firearms in home: No MEDS/ALLERGIES Home Medications and Allergies Home Medications Medication Instructions Recorded Confirmed Type blood-glucose meter,continuous #1 each 09/16/19 07/01/21 Rx (Dexcom Horse Trainer) blood-glucose sensor (Dexcom G6 #3 each 09/16/19 07/01/21 Rx Sensor) blood-glucose transmitter (Dexcom #1 each 09/16/19 07/01/21 Rx G6 Transmitter) loperamide 2 mg capsule (Imodium 4 mg PO Q6H PRN cap 04/17/20 07/01/21 History A-D) atorvastatin 40 mg tablet 40 mg PO HS #90 tab 09/18/20 07/01/21 Rx gabapentin 300 mg capsule 300 mg PO QDAY #90 cap 10/19/20 07/01/21 Rx blood-glucose meter #1 ea 10/23/20 07/01/21 Rx blood sugar diagnostic (Blood #400 ea 10/28/20 07/01/21 Rx Glucose Test) losartan 100 mg tablet 100 mg PO QDAY #30 tab 11/09/20 07/01/21 Rx hydralazine 50 mg tablet 50 mg PO TID #90 tab 02/10/21 07/01/21 Rx torsemide 20 mg tablet 40 mg PO QDAY #180 tab 02/15/21 07/01/21 Rx apixaban 2.5 mg tablet 2.5 mg PO BID #180 tab 03/03/21 07/01/21 Rx cholecalciferol (vitamin D3) 1,250 1,250 mcg PO .Q 14 days #6 cap 03/15/21 07/01/21 Rx mcg (50,000 unit) capsule gentamicin 0.1 % topical ointment 1 applic TOPICAL TID #30 g 04/08/21 07/01/21 Rx allopurinol 100 mg tablet 100 mg PO QDAY #30 tab 04/09/21 07/01/21 Rx insulin lispro 100 unit/mL See Rx Instructions .ROUTE 04/19/21 07/01/21 Rx subcutaneous pen (Humalog KwikPen .COMPLEX #15 ml (U-100) Insulin) levothyroxine 112 mcg tablet 224 mcg PO QDAY #180 tab 04/23/21 07/01/21 Rx trazodone 50 mg tablet 25 mg PO QHS PRN #60 tab 05/17/21 07/01/21 Rx insulin glargine 100 unit/mL (3 60 unit (0.6 mL) SUBCUT QDAY #60 ml 05/25/21 07/01/21 Rx mL) subcutaneous pen (Lantus Solostar U-100 Insulin) diphenoxylate-atropine 2.5 1 tab PO TID PRN #60 tab 06/04/21 07/01/21 Rx mg-0.025 mg tablet (Lomotil) cinacalcet 30 mg tablet 30 mg PO QDAY #30 tab 06/09/21 07/01/21 Rx sevelamer carbonate 800 mg tablet 4,000 mg PO .TID with meals #450 06/15/21 07/01/21 Rx tab sucroferric oxyhydroxide 500 mg 1,000 mg PO .Tid with meals #180 06/15/21 07/01/21 Rx chewable tablet (Velphoro) tab semaglutide 1 mg/dose (2 mg/1.5 1 mg (0.75 mL) SUB-Q QWEEK #3 ml 06/18/21 07/01/21 Rx mL) subcutaneous pen injector hydromorphone 2 mg tablet 2 mg PO TID PRN #90 tab 06/24/21 07/01/21 Rx methocarbamol 500 mg tablet 500 mg PO TID #90 tab 07/01/21 07/01/21 Rx Allergies Allergy/AdvReac Type Severity Reaction Status Date / Time Beta-Blockers AdvReac Mild Hypotension Verified 06/04/21 12:55 (Beta-Adrenergic Bloc Physical Examination Vital Signs Vital signs: Temp Pulse Resp BP Pulse Ox 97.4 F 68 16 116/62 98 07/02/21 11:47 07/02/21 11:47 07/02/21 11:47 07/02/21 11:47 07/02/21 11:47 Respiratory Respiratory exam: normal respiratory effort and clear to auscultation Abdomen Abdomen: Present soft, non tender, bowel sounds and surgical scars (Peritoneal dialysis catheter.) Integumentary Integumentary: Present other (RIGHT arm AV fistula. LEFT lateral leg over 2/3 of surface with patches of dry necrotic hard black skin. Periowund erythema, edema, tenderness and serous drainage.) Neurologic Neurologic: Present other (Neuropathy. ) Musculoskeletal Musculoskeletal: Present other (Right BKA. AV fistula RIGHT arm) Psychiatric Psychiatric: Present oriented to time, oriented to person, oriented to place, speech is normal and memory intact Results Labs Result diagrams: 07/02/21 07:46 07/02/21 07:46 Labs: Abnormal lab results 07/01/21 07/01/21 07/01/21 Range/Units 14:15 14:16 14:16 RBC 2.92 L (4.63-6.08) M/mcL Hgb 9.0 L (13.7-17.5) g/dL Hct 28.8 L (40.1-51.0) % MPV 10.9 H (7.4-10.4) fL Neut % (Auto) 86.6 H (38.0-78.0) % Lymph % (Auto) 7.0 L (15.5-49.0) % Lymph # (Auto) 0.46 L (1.50-4.80) K/mcL Sodium (133-145) mmol/L Chloride (96-108) mmol/L Carbon Dioxide (22-30) mmol/L Anion Gap (8.0-16.0) BUN (8-23) mg/dL Creatinine (0.7-1.2) mg/dL Glucose (70-105) mg/dL Hemoglobin A1c 8.2 H (4.0-6.0) % Hgb Calcium (8.6-10.4) mg/dL Albumin (3.2-5.2) gm/dL Albumin/Globulin Ratio (1.0-2.3) Procalcitonin 0.43 H (<0.10) ng/mL 07/02/21 07/02/21 Range/Units 07:46 07:46 RBC 2.46 L (4.63-6.08) M/mcL Hgb 7.7 L (13.7-17.5) g/dL Hct 24.5 L (40.1-51.0) % MPV 10.9 H (7.4-10.4) fL Neut % (Auto) (38.0-78.0) % Lymph % (Auto) 9.2 L (15.5-49.0) % Lymph # (Auto) 0.68 L (1.50-4.80) K/mcL Sodium 132 L (133-145) mmol/L Chloride 95 L (96-108) mmol/L Carbon Dioxide 20 L (22-30) mmol/L Anion Gap 17.0 H (8.0-16.0) BUN 46 H (8-23) mg/dL Creatinine 10.9 H* (0.7-1.2) mg/dL Glucose 184 H (70-105) mg/dL Hemoglobin A1c (4.0-6.0) % Hgb Calcium 6.9 L (8.6-10.4) mg/dL Albumin 2.6 L (3.2-5.2) gm/dL Albumin/Globulin Ratio 0.8 L (1.0-2.3) Procalcitonin (<0.10) ng/mL Diabetes panel 07/01/21 07/02/21 Range/Units 14:16 07:46 Sodium 132 L (133-145) mmol/L Potassium 4.7 (3.3-5.1) mmol/L Chloride 95 L (96-108) mmol/L Carbon Dioxide 20 L (22-30) mmol/L BUN 46 H (8-23) mg/dL Creatinine 10.9 H* (0.7-1.2) mg/dL Glucose 184 H (70-105) mg/dL Hemoglobin A1c 8.2 H (4.0-6.0) % Hgb Calcium 6.9 L (8.6-10.4) mg/dL AST 19 (<40) U/L ALT 26 (<40) U/L Alkaline Phosphatase 99 (39-117) U/L Total Protein 5.9 (5.9-8.4) gm/dL Albumin 2.6 L (3.2-5.2) gm/dL Calcium panel 07/02/21 Range/Units 07:46 Calcium 6.9 L (8.6-10.4) mg/dL Albumin 2.6 L (3.2-5.2) gm/dL Pituitary panel 07/02/21 Range/Units 07:46 Sodium 132 L (133-145) mmol/L Potassium 4.7 (3.3-5.1) mmol/L Chloride 95 L (96-108) mmol/L Carbon Dioxide 20 L (22-30) mmol/L BUN 46 H (8-23) mg/dL Creatinine 10.9 H* (0.7-1.2) mg/dL Glucose 184 H (70-105) mg/dL Calcium 6.9 L (8.6-10.4) mg/dL Adrenal panel 07/02/21 Range/Units 07:46 Sodium 132 L (133-145) mmol/L Potassium 4.7 (3.3-5.1) mmol/L Chloride 95 L (96-108) mmol/L Carbon Dioxide 20 L (22-30) mmol/L BUN 46 H (8-23) mg/dL Creatinine 10.9 H* (0.7-1.2) mg/dL Glucose 184 H (70-105) mg/dL Calcium 6.9 L (8.6-10.4) mg/dL Total Bilirubin 0.2 (0.1-1.0) mg/dL AST 19 (<40) U/L ALT 26 (<40) U/L Alkaline Phosphatase 99 (39-117) U/L Total Protein 5.9 (5.9-8.4) gm/dL Albumin 2.6 L (3.2-5.2) gm/dL All other labs normal. A/P Narrative A/P Narrative: Assessment: CSSSI LEFT lateral leg ( Sepsis ) ESRD HD / PD Dry adherent black necrotic patches. (Nephrocalcinosis ? ) Anemia IDDM Peripheral neuropathy Plan: I discussed Angiography / Stent findings with Dr. ALAN wound care as reviewed with Dr. Reina and Fritz Landa RN Will debrided wound at bedside and obtain tissue for c/s Obtain biopsy of dry black skin to r/o OR r/i calcinosis Time Spent With Patient Time: Total time spent is greater than 50% in coordination of care (as documented) at patient's floor/unit and/or counseling patient: Total time spent with greater than 50% in coordination of care (as documented) at patient's floor/unit and/or counseling patient:: Greater than 35 minutes
--- NOTE | 2021-07-02 12:55 | General Surgery Procedure Note ---
Date of procedure: Note initiated : 07/02/21 at 12:52 pm Service Date, if different from initiated Date: [] Pre-op diagnosis: CSSSI Left lateral leg. Patchy Dry gangrene / Necrosis Left leg Post-op diagnosis: same Procedure: Bedside debridement and tissue biopsy for calcinosis and tissue for c/s. Anesthesia: none Surgeon: Dickson Cameron Estimated blood loss: 2 Pathology: other (Tissue for histology and c/s) Condition: stable Disposition: floor
[2021-07-02] MEDS: ACETAMINOPHEN 325 MG TABLET PO PRN ×2 (13:18→20:24)
--- NOTE | 2021-07-02 13:59 | Operative Note ---
DATE OF OPERATION: 07/02/2021 PREOPERATIVE DIAGNOSES: 1. Complicated skin and skin structure infection, left lateral leg. 2. Patches of dry gangrene necrosis of left lateral leg. POSTOPERATIVE DIAGNOSES: 1. Complicated skin and skin structure infection, left lateral leg. 2. Patches of dry gangrene necrosis of left lateral leg. PROCEDURE: Bedside debridement and tissue biopsy for calcinosis and tissue specimen for culture and sensitivity. ANESTHESIA: None. SURGEON: Dicskon Cameron MD ESTIMATED BLOOD LOSS: 2 mL. SPECIMENS: Specimens obtained for pathology and microbiology as above. CONDITION: Stable. Procedure was well tolerated. PROCEDURE NOTE IN DETAIL: This is a patient with end-stage renal disease, on hemodialysis. He underwent revascularization of occluded left popliteal artery and infrapopliteal branches. Subsequently, patient developed local problems with dry necrotic patches of the skin with complicated skin and skin structure infection and cellulitis. After obtaining verbal consent, we proceeded to carry out this procedure at bedside. The local area was widely cleaned and prepped with chlorhexidine solution. The wound edges were debrided with #15 scalpel blade. We obtained a full-thickness biopsy of skin and subcutaneous tissue from dry hard patch to rule out calcinosis. Deep subcutaneous tissue specimen was obtained for culture and sensitivity. Blood loss was about 2 mL. Hemostasis achieved with silver nitrate . Wound bed management consisted of Santyl ointment at the biopsy site and the crosscut areas of the dry necrotic patches; to loosen necrotic skin for subsequent debridement later. Dressings consisted of Adaptic, gauze, Kerlix, and Brown. These dressings will be changed every day after cleaning wound with Vashe and topical application of Santyl. VD:milan Job ID: [id number] Doc ID: [id number] Dickson Cameron MD [facility]
[2021-07-02] MEDS: ATORVASTATIN 40 MG TABLET PO SCH (21:45)
[2021-07-02] MEDS: SENNOSIDES 1 TABLET PO SCH (21:47)
[2021-07-03] MEDS: 0.9 % SODIUM CHLORIDE 10 ML SYRINGE IV SCH ×3 (05:28→21:49)
[2021-07-03] MEDS: PIPERACILLIN SODIUM/TAZOBACTAM 2.25 GM in DEXTROSE 5% IN WATER 50 ML IV SCH ×3 (05:28→21:49)
[2021-07-03 07:00] LABS: Basophils # (Auto) 0.07 K/mcL (0.00-0.30); Basophils % (Auto) 0.9 % (0.0-2.0); Eosinophils # (Auto) 0.42 K/mcL (0.00-0.70); Eosinophils % (Auto) 5.2 % (0.0-7.0); Hematocrit 24.7 % (40.1-51.0); Hemoglobin 7.6 g/dL (13.7-17.5); Lymphocytes # (Auto) 0.72 K/mcL (1.50-4.80); Mean Corpuscular HGB Conc 30.8 g/dL (31.0-36.0); Mean Platelet Volume 10.9 fL (7.4-10.4); Monocytes # (Auto) 0.67 K/mcL (0.10-0.90); Monocytes % (Auto) 8.3 % (1.0-12.0); Neutrophils % (Auto) 76.6 % (38.0-78.0); Platelet Count 276 K/mcL (140-440); RBC 2.47 M/mcL (4.63-6.08); Red Cell Distribution Width 13.4 % (11.5-14.5)
[2021-07-03 07:32] LABS: Vancomycin,Random 10.2 ug/mL
[2021-07-03] MEDS: HYDROmorphone 2 MG TABLET PO PRN ×3 (07:41→21:46)
[2021-07-03] MEDS: INSULIN LISPRO 1 UNIT/0.01 ML UNIT SQ SCH ×4 (07:42→21:49)
[2021-07-03] MEDS: INSULIN GLARGINE, HUMAN 1 UNIT/0.01 ML SQ SCH (07:42)
[2021-07-03] MEDS: SEVELAMER 800 MG TABLET PO SCH ×3 (07:42→18:19)
[2021-07-03 07:47] LABS: ALT/SGPT 21 U/L (<40); AST/SGOT 17 U/L (<40); Albumin 2.2 gm/dL (3.2-5.2); Albumin/Globulin Ratio 0.6 (1.0-2.3); Alkaline Phosphatase 98 U/L (39-117); Bilirubin,Total 0.2 mg/dL (0.1-1.0); Blood Urea Nitrogen 42 mg/dL (8-23); Calcium 6.7 mg/dL (8.6-10.4); Carbon Dioxide 20 mmol/L (22-30); Chloride 92 mmol/L (96-108); Globulin 3.6 gm/dL (2.2-3.7); Glomerular Filtration Rate 5; Glucose 123 mg/dL (70-105)
[2021-07-03] MEDS ORDERED: COLLAGENASE TOP OINT TUBE 30GM TOPICAL SCH (09:00)
[2021-07-03] MEDS ORDERED: VANCOMYCIN 1,500 MG in 0.9 % SODIUM CHLORIDE 500 ML IV ONE (09:00)
[2021-07-03] MEDS: CINACALCET 30 MG TABLET PO SCH (09:40)
[2021-07-03] MEDS: LEVOTHYROXINE SODIUM 112 MCG TABLET PO SCH (09:40)
[2021-07-03] MEDS: LOSARTAN 50 MG TABLET PO SCH (09:40)
[2021-07-03] MEDS: TORSEMIDE 10 MG TABLET PO SCH (09:40)
[2021-07-03] MEDS: GABAPENTIN 300 MG CAPSULE PO SCH (09:40)
[2021-07-03] MEDS: APIXABAN 5 MG TABLET PO SCH ×2 (09:41→21:47)
[2021-07-03] MEDS: ALLOPURINOL 100 MG TABLET PO SCH (09:41)
[2021-07-03] MEDS: METHOCARBAMOL 500 MG TABLET PO SCH ×3 (09:41→21:46)
[2021-07-03] MEDS: COLLAGENASE TOP OINT TUBE 30GM TOPICAL SCH (09:42)
[2021-07-03] MEDS: GENTAMICIN 0.1% TOPICAL SCH ×3 (09:42→21:49)
[2021-07-03] MEDS: DOCUSATE SODIUM 100 MG CAPSULE PO SCH ×2 (09:42→21:48)
[2021-07-03] MEDS: hydrALAZINE 25 MG TABLET PO SCH ×3 (09:57→21:47)
--- NOTE | 2021-07-03 10:43 | Internal Med Progress Note ---
SUBJECTIVE Subjective Patient information: Note initiated : 07/03/21 at 10:40 am Service Date, if different from initiated Date: [] Patient: Bart Pagan 61 y/o M admitted on 07/01/21 for Left Lower Extremity Infection. Chief Complaint: [] Interval history: History of present illness: Mr. Pagan is a 61 year old M history of end-stage renal disease on peritoneal dialysis, type 2 diabetes mellitus, essential hypertension, mixed dyslipidemia, hypothyroidism, obstructive sleep apnea on CPAP, right sided BKA about 3 years ago, peripheral arterial disease status post left leg stents placement 1 week ago, presenting with 3 weeks history of left leg rash, swelling, warmth, and pustular discharge. He was seen in Dr. Cameron office 2 weeks ago. Patient is currently complaining of shaking chills but denies any fever or diaphoresis. He denies any GI upset such as nausea vomiting. He denies any general body weakness. He denies any pain of his left leg. Vital signs at ED presentations significant for mild tachycardia heart rate in the 100s, with rest of the vital signs within normal limits. Labs significant for lack of leukocytosis with WBC 8.7. Hemoglobin and hematocrit 2.65 and 8.2, respectively. It is unclear where the sample was actually accurate or what was it hemolyzed. History significant for serum creatinine level 10.6. Serum lactic acid 1.0. 07/02: Afebrile overnight. Wound and blood cultures no growth to date. c/o moderate aching and tingling of his left lower leg. Denies nausea or vomiting. Denies f ever, chills, or sweating. 07/03: s/p bedside debridement and skin biopsy by Dr. Cameron on 07/02. Afebrile overnight. Blood and wound cultures no growth to date. Denies any fever chills or sweating. Denies left leg pain. Denies nausea or vomiting. Constitutional Vitals: Vital Signs Temp Pulse Resp BP Pulse Ox 36.9 C 80 20 112/61 91 07/03/21 08:50 07/03/21 05:50 07/03/21 08:00 07/03/21 08:50 07/03/21 08:00 Period Temp Pulse Resp BP Sys/Mancini Pulse Ox Last 24 Hr 36.1 C-37.2 C 66-80 16-20 101-134/61-70 91-98 Intake and Output 07/02/21 07/03/21 07/03/21 21:59 05:59 13:59 Intake Total 1440 100 Output Total 1150 Balance 290 100 Weight 113.171 kg Intake & Output: Intake & Output 07/02/21 07/03/21 07/03/21 21:59 05:59 13:59 Intake Total 1440 100 Output Total 1150 Balance 290 100 Weight 113.171 kg Intake: IV 50 100 Zosyn 2.25 gm In Dextrose 5% in 50 100 Water 50 ml @ 100 mls/hr IV Q8H [facility] Rx#:[id number] Oral 1390 Output: Urine Catheter Amount 300 Void Amount 850 Other: Meal Dinner Percent of Meal Consumed 100% Feeding Ability Independent Urine Appearance Clear Urine Color Dark Yellow Urine Odor Normal Stool Size Moderate Stool Color Brown Stool Consistency Loose # Voids 1 1 # Bowel Movements 1 # of times incontinent of 1 Bowels Head Head exam: Present atraumatic and normal inspection Eye Eye exam: Present normal appearance ENT ENT exam: Present mucous membranes moist, normal exam and normal external ear exam Neck Neck exam: Present normal inspection Respiratory Respiratory exam: Present normal respiratory exam Cardiovascular Cardiovascular exam: Present normal rate and rhythm GI/Abdominal GI/Abdominal exam: Present normal bowel sounds Extremities Exam Extremities exam: Present tenderness; Absent normal inspection Additional comments: Right BKA. Left lower leg erythematic rash with tenderness to touch. Covered by wound dressing Back Exam Back exam: Present normal inspection Neurological Exam Neurological exam: Present alert and oriented X3 Skin Skin exam: Present intact and warm Additional comments: Left lower leg erythematic rash with tenderness to touch. Covered by wound dressing OBJ DATA Labs CBC & Chem 7: 07/03/21 05:15 07/03/21 05:15 Labs: Abnormal Lab Results 07/03/21 07/03/21 07/02/21 05:15 05:15 07:46 RBC 2.47 L Hgb 7.6 L Hct 24.7 L MCV MCHC 30.8 L MPV 10.9 H Neut % (Auto) Lymph % (Auto) 9.0 L Lymph # (Auto) 0.72 L Sodium 131 L 132 L Chloride 92 L 95 L Carbon Dioxide 20 L 20 L Anion Gap 19.0 H 17.0 H BUN 42 H 46 H Creatinine 10.5 H* 10.9 H* Glucose 123 H 184 H Hemoglobin A1c Calcium 6.7 L 6.9 L Total Protein 5.8 L Albumin 2.2 L 2.6 L Globulin Albumin/Globulin Ratio 0.6 L 0.8 L Procalcitonin 07/02/21 07/01/21 07/01/21 07:46 14:16 14:16 RBC 2.46 L 2.92 L Hgb 7.7 L 9.0 L Hct 24.5 L 28.8 L MCV MCHC MPV 10.9 H 10.9 H Neut % (Auto) 86.6 H Lymph % (Auto) 9.2 L 7.0 L Lymph # (Auto) 0.68 L 0.46 L Sodium Chloride Carbon Dioxide Anion Gap BUN Creatinine Glucose Hemoglobin A1c 8.2 H Calcium Total Protein Albumin Globulin Albumin/Globulin Ratio Procalcitonin 07/01/21 07/01/21 07/01/21 14:15 10:50 10:50 RBC 2.65 L Hgb 8.2 L Hct 26.6 L MCV 100.4 H MCHC 30.8 L MPV 11.0 H Neut % (Auto) 83.1 H Lymph % (Auto) 5.7 L Lymph # (Auto) 0.50 L Sodium Chloride Carbon Dioxide 20 L Anion Gap 19.0 H BUN 47 H Creatinine 10.6 H* Glucose 164 H Hemoglobin A1c Calcium 7.8 L Total Protein Albumin 2.6 L Globulin 3.8 H Albumin/Globulin Ratio 0.7 L Procalcitonin 0.43 H Meds: Medications Acetaminophen (Acetaminophen 325 Mg Tablet) 650 mg PO Q6HP PRN; Protocol PRN Reason: Per Pain Protocol/Fever > 101 Last Admin: 07/02/21 20:24 Dose: 650 mg Documented by: Albuterol/Ipratropium (Ipratropium/Albuterol 3 Ml Ampul.Neb) 3 ml NEB Q4HRT PRN PRN Reason: Wheezing Allopurinol (Allopurinol 100 Mg Tablet) 100 mg PO QDAY [facility] Last Admin: 07/03/21 09:41 Dose: 100 mg Documented by: Apixaban (Apixaban 5 Mg Tablet) 2.5 mg PO BID [facility] Last Admin: 07/03/21 09:41 Dose: 2.5 mg Documented by: Atorvastatin Calcium (Atorvastatin 40 Mg Tablet) 40 mg PO HS [facility] Last Admin: 07/02/21 21:45 Dose: 40 mg Documented by: Cinacalcet (Cinacalcet 30 Mg Tablet) 30 mg PO QDAY [facility] Last Admin: 07/03/21 09:40 Dose: 30 mg Documented by: Collagenase (Collagenase Top Oint Tube 30gm) 1 dose TOPICAL DAILY [facility] Last Admin: 07/03/21 09:42 Dose: 1 ml Documented by: Dextrose (Dextrose 50% 50 Ml Vial) 0 ml IV UD PRN PRN Reason: Hypoglycemia Diagnostic Test (Pha) (Accu-Chek 1 Each Strip) 1 each FS [facility] Last Admin: 07/03/21 07:43 Dose: 1 each Documented by: Diphenoxylate HCl/Atropine (Diphenoxylate Hcl/Atropine 1 Tablet) 1 tab PO TID P RN PRN Reason: diarrhea Docusate Sodium (Docusate Sodium 100 Mg Capsule) 100 mg PO BID [facility] Last Admin: 07/03/21 09:42 Dose: Not Given Documented by: Gabapentin (Gabapentin 300 Mg Capsule) 300 mg PO QDAY [facility] Last Admin: 07/03/21 09:40 Dose: 300 mg Documented by: Glucose (Dextrose 31 Gm Oral.Susp) 15 gm PO PRN PRN PRN Reason: Hypoglycemia Hydralazine HCl (Hydralazine 25 Mg Tablet) 50 mg PO TID [facility] Last Admin: 07/03/21 09:57 Dose: 50 mg Documented by: Hydromorphone HCl (Hydromorphone 2 Mg Tablet) 2 mg PO TIDP PRN; Protocol PRN Reason: pain Last Admin: 07/03/21 07:41 Dose: 2 mg Documented by: Piperacillin Sod/Tazobactam (Sod 2.25 gm/ Dextrose) 50 mls @ 100 mls/hr IV Q8H [facility]; Protocol Last Infusion: 07/03/21 05:58 Dose: Infused Documented by: Insulin Glargine (Insulin Glargine, Human 1 Unit/0.01 Ml) 60 unit SQ QDAY [facility] Last Admin: 07/03/21 07:42 Dose: 60 units Documented by: Insulin Human Lispro (Insulin Lispro 1 Unit/0.01 Ml Unit) 0 unit SQ [facility]; Protocol Last Admin: 07/03/21 07:42 Dose: 1 unit Documented by: Levothyroxine Sodium (Levothyroxine Sodium 112 Mcg Tablet) 224 mcg PO QDAY [facility] Last Admin: 07/03/21 09:40 Dose: 224 mcg Documented by: Loperamide HCl (Loperamide 2 Mg Capsule) 4 mg PO Q6H PRN PRN Reason: Loose Stool Losartan Potassium (Losartan 50 Mg Tablet) 100 mg PO DAILY [facility] Last Admin: 07/03/21 09:40 Dose: 100 mg Documented by: Methocarbamol (Methocarbamol 500 Mg Tablet) 500 mg PO TID [facility] Last Admin: 07/03/21 09:41 Dose: 500 mg Documented by: Ondansetron HCl (Ondansetron 4 Mg/2 Ml Vial) 4 mg IV Q6HP PRN PRN Reason: Nausea And Vomiting Gentamicin 0.1 % (Ointment) 1 dose TOPICAL TID [facility] Last Admin: 07/03/21 09:42 Dose: Not Given Documented by: Sucroferric Oxyhydroxide [ Velphoro] 500 Mg Tablet 2 dose PO TIDCC [facility] Last Admin: 07/03/21 09:43 Dose: Not Given Documented by: Senna (Sennosides 1 Tablet) 2 tab PO [facility] Last Admin: 07/02/21 21:47 Dose: Not Given Documented by: Sevelamer Carbonate (Sevelamer 800 Mg Tablet) 2,400 mg PO TIDCC [facility] Last Admin: 07/03/21 07:42 Dose: 2,400 mg Documented by: Sodium Chloride (0.9 % Sodium Chloride 10 Ml Syringe) 10 ml IV Q8 [facility] Last Admin: 07/03/21 05:28 Dose: 10 ml Documented by: Torsemide (Torsemide 10 Mg Tablet) 40 mg PO DAILY [facility] Last Admin: 07/03/21 09:40 Dose: 40 mg Documented by: Trazodone HCl (Trazodone Hcl 50 Mg Tablet) 25 mg PO QHS PRN PRN Reason: insomnia Vancomycin HCl (Vancomycin Per Pharmacy) 1 order IV [facility] [place]; Protocol Zolpidem Tartrate (Zolpidem 5 Mg Tablet) 5 mg PO HSP PRN PRN Reason: Insomnia A/P Assessment and plan (1) Type 2 diabetes mellitus: Status: Chronic Qualifiers: Diabetes mellitus buttermaker continuous churn insulin use: with buttermaker continuous churn use Diabetes mellitus complication status: with kidney complications Diabetes mellitus complication detail: with chronic kidney disease Chronic kidney disease stage: on chronic dialysis Qualified Code(s): E11.22 - Type 2 diabetes mellitus with diabetic chronic kidney disease; N18.6 - End stage renal disease; Z79.4 - senior living (current) use of insulin; Z99.2 - Dependence on renal dialysis (2) Obesity (BMI 30.0-34.9): Status: Chronic (3) Essential hypertension: Status: Chronic (4) Hypothyroidism: Status: Chronic Qualifiers: Hypothyroidism type: acquired Qualified Code(s): E03.9 - Hypothyroidism, unspecified (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 Comment: PCP monitoring for a fib stroke PPx (6) Amputation of lower limb: Status: Chronic (7) Hyperlipidemia: Status: Chronic (8) Diabetic neuropathy: Status: Chronic Qualifiers: Diabetes mellitus type: type 2 Diabetes mellitus complication detail: diabetic autonomic neuropathy Qualified Code(s): E11.43 - Type 2 diabetes mellitus with diabetic autonomic (poly)neuropathy (9) ESRD on peritoneal dialysis: Status: Acute (10) MAUDE on CPAP: Status: Acute (11) Cellulitis of left lower extremity: Status: Acute (12) Anemia due to chronic kidney disease: Status: Deleted Narrative A/P Narrative: Assessment and Plans: 1. Left leg cellulitis: DDx: calciphylaxis Stays in inpatient med surg Dr. Cameron consulted, recs. appreciated, performed bedside debridement and skin biopsy on 07/02 Lactic acid Procalcitonin 0.43 Blood culture, no growth to date Wound culture, no growth to date cbc w/ auto diff in the AM to trend WBC Tylenol PRN fever [place] PRN moderate pain Vancomycin Zosyn Consult wound care team Physical therapy Occupational therapy 2. T2DM with diabetic neuropathy: HgA1c Hold oral hypoglycemics Lantus 60 unit SQ daily Low dose correctional scale insulin AC HS Patient has glucose monitor Hypoglycemia protocol Diabetic diet Gabapentin 3. ESRD on peritoneal dialysis: Consult Dr. Almaraz for dialysis needs, recs. appreciated Continue peritoneal dialysis every evening CMP in the AM to trend kidney functions Would switch to hemodialysis after being discharged from hospital 4. Anemia associated with ESRD: Daily cbc w/ auto diff in the AM to trend H/H 5. Essential HTN: Currently normotensive Continue Losartan and Hydralazine 6. Mixed dyslipidemia: Continue statin therapy 7. MAUDE on CPAP: Continue CPAP at night while sleeping 8. Hypothyroidism: Continue oral thyroid replacement therapy 9. 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 h/o PAD with recent stent placement in right leg: Continue Eliquis Continue statin GI ppx: not currently indicated DVT ppx: Eliquis Code status: Full Prognosis: guarded Disposition: inpatient med surg; PT and OT for placement planning Time Spent With Patient Time: Total time spent is greater than 50% in coordination of care (as documented) at patient's floor/unit and/or counseling patient: Total time spent with greater than 50% in coordination of care (as documented) at patient's floor/unit and/or counseling patient:: Greater than 35 minutes QUALITY Stroke Symptom Onset Unknown: No VTE Deep Vein Thrombosis/Pulmonary Embolism Present on Admission: No
--- NOTE | 2021-07-03 11:32 | Nephrology Progress Note ---
SUBJECTIVE Subjective Patient information: Note initiated : 07/03/21 at 11:30 am Patient: Bart Pagan 61 y/o M admitted on 07/01/21 for Left Lower Extremity Infection. Chief Complaint: Left leg wound Pertinent ROS: Weakness Constitutional Vitals: Vital Signs Temp Pulse Resp BP Pulse Ox 98.4 F 80 20 112/61 91 07/03/21 08:50 07/03/21 05:50 07/03/21 08:00 07/03/21 08:50 07/03/21 08:00 Period Temp Pulse Resp BP Sys/Mancini Pulse Ox Last 24 Hr 97 F-99 F 66-80 16-20 101-134/61-70 91-98 Intake and Output 07/02/21 07/03/21 07/03/21 21:59 05:59 13:59 Intake Total 1440 100 Output Total 1150 Balance 290 100 Weight 249 lb 8 oz Intake & Output: Intake & Output 07/02/21 07/03/21 07/03/21 21:59 05:59 13:59 Intake Total 1440 100 Output Total 1150 Balance 290 100 Weight 249 lb 8 oz Intake: IV 50 100 Zosyn 2.25 gm In Dextrose 5% in 50 100 Water 50 ml @ 100 mls/hr IV Q8H [facility] Rx#:[id number] Oral 1390 Output: Urine Catheter Amount 300 Void Amount 850 Other: Meal Dinner Percent of Meal Consumed 100% Feeding Ability Independent Urine Appearance Clear Urine Color Dark Yellow Urine Odor Normal Stool Size Moderate Stool Color Brown Stool Consistency Loose # Voids 1 1 # Bowel Movements 1 # of times incontinent of 1 Bowels General appearance: cooperative and no acute distress Head Head exam: Present normal inspection Eye Eye exam: Present normal appearance ENT ENT exam: Present mucous membranes moist Respiratory Respiratory exam: Absent respiratory distress Cardiovascular Cardiovascular exam: Present normal rate and rhythm GI/Abdominal GI/Abdominal exam: Present soft; Absent tenderness Extremities Exam Extremities exam: Absent joint swelling or pedal edema Neurological Exam Neurological exam: Present alert and oriented X3 Psychiatric Psychiatric exam: Present normal affect and normal mood Skin Skin exam: Present warm; Absent rash A/P Assessment and plan (1) ESRD on peritoneal dialysis: Assessment and plan: Bart Pagan is a 61-year-old male with end stage renal disease on peritoneal dialysis, chronic anemia due to ESRD, hypertension, diabetes mellitus type 2, chronic atrial fibrillation on Apixaban, peripheral vascular disease (heavy calcifications of the femoral artery and the runoff vessels), left lower extremity infected diabetic foot ulcer, admitted on 07/01/21. He was sent from wound care for worsening of left lower extremity infected diabetic foot ulcer which requires IV antibiotics. Nephrology consultation was requested for management of peritoneal dialysis. End stage renal disease on peritoneal dialysis. Chronic anemia due to ESRD, [facility] with Odilon and Ingrid. Secondary hyperparathyroidism. Peripheral vascular disease with heavy calcifications of the femoral artery and the runoff vessels. Left lower extremity infected diabetic foot ulcer which requires IV antibiotics (Vancomycin and Zosyn). Metabolic acidosis, mild. I discussed the patient with his primary nursing service administrator Dr. Jacinto. He suspected calciphylaxis of the wound and requests a wound biopsy for confirmation. IV Sodium thiosulfate will then be considered at the dialysis unit with switch back to hemodialysis. i also discussed the patient with Dr. Cameron regarding further management. Progress: CCPD; treatment time 12 hours, total volume 10,500 ml, 2.5%, fill volume 2,400 ml, four exchanges, last fill 300 ml. Complicated skin and skin structure infection, left lateral leg and patches of dry gangrene necrosis of left lateral leg s/p bedside debridement and tissue biopsy for calciphylaxis andtissue specimen for culture and sensitivity on 07/03/21. Recommendations/Plan: Continue CCPD as inpatient. He will need to switch to intermittent hemodialysis for SNF discharge. Switching to hemodialysis also recommended for better clearance. Antibiotic dosage for peritoneal dialysis. PRBC transfusion for hemoglobin <7.0 unless symptomatic anemia. 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
--- NOTE | 2021-07-03 16:01 | General Surgery Progress Note ---
SUBJECTIVE Subjective Patient information: Note initiated : 07/03/21 at 3:57 pm Service Date, if different from initiated Date: [] Patient: Bart Pagan 61 y/o M admitted on 07/01/21 for Left Lower Extremity Infection. Chief Complaint: [] Principal diagnosis: ESRD, PAD ( REVASCUALRZAIOTN ), DM Debridement Left lateral leg wounds. Additional PMFSH (Level 3 Only): Patient seen with Norm RN. Progress reviewed. Constitutional Vitals: Vital Signs Temp Pulse Resp BP Pulse Ox 98.1 F 80 16 124/74 95 07/03/21 12:00 07/03/21 05:50 07/03/21 12:00 07/03/21 12:00 07/03/21 12:00 Period Temp Pulse Resp BP Sys/Mancini Pulse Ox Last 24 Hr 97 F-99 F 72-80 16-20 101-134/61-74 91-97 Intake and Output 07/03/21 07/03/21 07/03/21 05:59 13:59 21:59 Intake Total 100 500 50 Balance 100 500 50 Intake & Output: Intake & Output 07/03/21 07/03/21 07/03/21 05:59 13:59 21:59 Intake Total 100 500 50 Balance 100 500 50 Intake: IV 100 500 50 Zosyn 2.25 gm In Dextrose 5% in 100 50 Water 50 ml @ 100 mls/hr IV Q8H [facility] Rx#:[id number] Vancomycin 1,500 mg In Sodium 500 Chloride 0.9% 500 ml @ 333.3 mls/hr IV ONCE ONE Rx#: [id number] Other: # Voids 1 Exam: AVSS. No changes STONEY. LEFT leg dressing clean and dry. To be changed daily. Labs reviewed A/P Narrative A/P Narrative: Assessment: Satisfactory progress. Plan: Continue ongoing treatment / care. Time Spent With Patient Time: Total time spent is greater than 50% in coordination of care (as documented) at patient's floor/unit and/or counseling patient: Total time spent with greater than 50% in coordination of care (as documented) at patient's floor/unit and/or counseling patient:: less than 15 minutes
[2021-07-03] MEDS: ATORVASTATIN 40 MG TABLET PO SCH (21:46)
[2021-07-03] MEDS: SENNOSIDES 1 TABLET PO SCH (21:49)
[2021-07-03] MEDS: ACETAMINOPHEN 325 MG TABLET PO PRN (23:00)
[2021-07-04] MEDS: 0.9 % SODIUM CHLORIDE 10 ML SYRINGE IV SCH ×3 (05:36→20:43)
[2021-07-04] MEDS: PIPERACILLIN SODIUM/TAZOBACTAM 2.25 GM in DEXTROSE 5% IN WATER 50 ML IV SCH ×3 (05:36→22:11)
[2021-07-04 06:58] LABS: Basophils # (Auto) 0.07 K/mcL (0.00-0.30); Basophils % (Auto) 0.8 % (0.0-2.0); Eosinophils # (Auto) 0.38 K/mcL (0.00-0.70); Eosinophils % (Auto) 4.6 % (0.0-7.0); Hematocrit 25.6 % (40.1-51.0); Hemoglobin 7.7 g/dL (13.7-17.5); Lymphocytes # (Auto) 0.66 K/mcL (1.50-4.80); Mean Corpuscular HGB Conc 30.1 g/dL (31.0-36.0); Mean Platelet Volume 10.7 fL (7.4-10.4); Monocytes # (Auto) 0.81 K/mcL (0.10-0.90); Monocytes % (Auto) 9.8 % (1.0-12.0); Neutrophils % (Auto) 76.8 % (38.0-78.0); Platelet Count 280 K/mcL (140-440); RBC 2.56 M/mcL (4.63-6.08); Red Cell Distribution Width 13.3 % (11.5-14.5); WBC 8.3 K/mcL (4.5-11.0)
[2021-07-04 07:05] LABS: Estimated Average Glucose(eAG) 183 mg/dL
[2021-07-04 07:41] LABS: Prealbumin 13.3 mg/dL (20.0-40.0)
[2021-07-04 07:49] LABS: Thyroid Stimulating Hormone 5.24 uIU/mL (0.27-5.01)
[2021-07-04 08:11] LABS: ALT/SGPT 18 U/L (<40); AST/SGOT 13 U/L (<40); Albumin 2.3 gm/dL (3.2-5.2); Albumin/Globulin Ratio 0.7 (1.0-2.3); Alkaline Phosphatase 91 U/L (39-117); Bilirubin,Total 0.2 mg/dL (0.1-1.0); Blood Urea Nitrogen 43 mg/dL (8-23); Calcium 6.7 mg/dL (8.6-10.4); Carbon Dioxide 21 mmol/L (22-30); Chloride 91 mmol/L (96-108); Globulin 3.5 gm/dL (2.2-3.7); Glomerular Filtration Rate 4; Glucose 124 mg/dL (70-105)
[2021-07-04] MEDS: APIXABAN 5 MG TABLET PO SCH ×2 (08:48→20:54)
[2021-07-04] MEDS: SEVELAMER 800 MG TABLET PO SCH ×3 (08:49→17:00)
[2021-07-04] MEDS: INSULIN GLARGINE, HUMAN 1 UNIT/0.01 ML SQ SCH (08:49)
[2021-07-04] MEDS: TORSEMIDE 10 MG TABLET PO SCH (08:50)
[2021-07-04] MEDS: INSULIN LISPRO 1 UNIT/0.01 ML UNIT SQ SCH ×4 (08:50→20:43)
[2021-07-04] MEDS: hydrALAZINE 25 MG TABLET PO SCH ×3 (08:50→20:54)
[2021-07-04] MEDS: CINACALCET 30 MG TABLET PO SCH (08:51)
[2021-07-04] MEDS: GABAPENTIN 300 MG CAPSULE PO SCH (08:51)
[2021-07-04] MEDS: ALLOPURINOL 100 MG TABLET PO SCH (08:51)
[2021-07-04] MEDS: LOSARTAN 50 MG TABLET PO SCH (08:51)
[2021-07-04] MEDS: METHOCARBAMOL 500 MG TABLET PO SCH ×3 (08:51→20:55)
[2021-07-04] MEDS: LEVOTHYROXINE SODIUM 112 MCG TABLET PO SCH (08:51)
[2021-07-04] MEDS: DOCUSATE SODIUM 100 MG CAPSULE PO SCH ×2 (08:52→20:42)
[2021-07-04] MEDS: GENTAMICIN 0.1% TOPICAL SCH ×3 (08:52→20:43)
[2021-07-04] MEDS: HYDROmorphone 2 MG TABLET PO PRN ×2 (09:41→20:55)
[2021-07-04] MEDS: COLLAGENASE TOP OINT TUBE 30GM TOPICAL SCH (09:42)
--- NOTE | 2021-07-04 10:44 | Internal Med Progress Note ---
SUBJECTIVE Subjective Patient information: Note initiated : 07/04/21 at 10:40 am Service Date, if different from initiated Date: [] Patient: Bart Pagan 61 y/o M admitted on 07/01/21 for Left Lower Extremity Infection. Chief Complaint: [] Principal diagnosis: ESRD, PAD ( REVASCUALRZAIOTN ), DM Debridement Left lateral leg wounds. Interval history: History of present illness: Mr. Pagan is a 61 year old M history of end-stage renal disease on peritoneal dialysis, type 2 diabetes mellitus, essential hypertension, mixed dyslipidemia, hypothyroidism, obstructive sleep apnea on CPAP, right sided BKA about 3 years ago, peripheral arterial disease status post left leg stents placement 1 week ago, presenting with 3 weeks history of left leg rash, swelling, warmth, and pustular discharge. He was seen in Dr. Cameron office 2 weeks ago. Patient is currently complaining of shaking chills but denies any fever or diaphoresis. He denies any GI upset such as nausea vomiting. He denies any general body weakness. He denies any pain of his left leg. Vital signs at ED presentations significant for mild tachycardia heart rate in the 100s, with rest of the vital signs within normal limits. Labs significant for lack of leukocytosis with WBC 8.7. Hemoglobin and hematocrit 2.65 and 8.2, respectively. It is unclear where the sample was actually accurate or what was it hemolyzed. History significant for serum creatinine level 10.6. Serum lactic acid 1.0. 07/02: Afebrile overnight. Wound and blood cultures no growth to date. c/o moderate aching and tingling of his left lower leg. Denies nausea or vomiting. Denies fever, chills, or sweating. 07/03: s/p bedside debridement and skin biopsy by Dr. Cameron on 07/02. Afebrile overnight. Blood and wound cultures no growth to date. Denies any fever chills or sweating. Denies left leg pain. Denies nausea or vomiting. 07/04: Afebrile. Wound culture growing gram negative bacillus. Blood culture no growth to date. Denies any left lower leg pain. Denies fever or chills or sweating. Denies nausea or vomiting. Good appetite. Denies general body weakness. Constitutional Vitals: Vital Signs Temp Pulse Resp BP Pulse Ox 36.6 C 76 17 128/88 96 07/04/21 08:45 07/04/21 06:43 07/04/21 06:43 07/04/21 08:45 07/04/21 06:43 Period Temp Pulse Resp BP Sys/Mancini Pulse Ox Last 24 Hr 36.6 C-37.2 C 71-80 14-20 115-138/67-88 94-98 Intake and Output 07/03/21 07/04/21 07/04/21 21:59 05:59 13:59 Intake Total 750 250 50 Balance 750 250 50 Weight 114.447 kg Intake & Output: Intake & Output 07/03/21 07/04/21 07/04/21 21:59 05:59 13:59 Intake Total 750 250 50 Balance 750 250 50 Weight 114.447 kg Intake: IV 50 50 50 Zosyn 2.25 gm In Dextrose 5% in 50 50 50 Water 50 ml @ 100 mls/hr IV Q8H [facility] Rx#:[id number] Oral 700 200 Other: Stool Size Smear Stool Consistency Loose General appearance: cooperative and no acute distress Head Head exam: Present atraumatic and normal inspection Eye Eye exam: Present normal appearance ENT ENT exam: Present mucous membranes moist, normal exam and normal external ear exam Neck Neck exam: Present normal inspection Respiratory Respiratory exam: Present normal respiratory exam Cardiovascular Cardiovascular exam: Present normal rate and rhythm GI/Abdominal GI/Abdominal exam: Present normal bowel sounds Extremities Exam Extremities exam: Present full ROM; Absent normal inspection Additional comments: Right BKA Back Exam Back exam: Present normal inspection Neurological Exam Neurological exam: Present alert and oriented X3 Skin Skin exam: Present erythema, intact, rash and warm Additional comments: Left lower leg 2 eschars with surrounding erythematic rash tenderness and warmth to touch OBJ DATA Labs CBC & Chem 7: 07/04/21 05:21 07/04/21 05:20 Labs: Abnormal Lab Results 07/04/21 07/04/21 07/04/21 07:56 05:21 05:20 RBC 2.56 L Hgb 7.7 L Hct 25.6 L MCV MCHC 30.1 L MPV 10.7 H Neut % (Auto) Lymph % (Auto) 8.0 L Lymph # (Auto) 0.66 L Sodium Chloride Carbon Dioxide Anion Gap BUN Creatinine Glucose Hemoglobin A1c Calcium Total Protein Albumin Globulin Albumin/Globulin Ratio Prealbumin Procalcitonin 0.52 H TSH Vancomycin Trough 24.5 H* 07/04/21 07/04/21 07/03/21 05:20 05:20 05:15 RBC Hgb Hct MCV MCHC MPV Neut % (Auto) Lymph % (Auto) Lymph # (Auto) Sodium 132 L 131 L Chloride 91 L 92 L Carbon Dioxide 21 L 20 L Anion Gap 20.0 H 19.0 H BUN 43 H 42 H Creatinine 11.7 H* 10.5 H* Glucose 124 H 123 H Hemoglobin A1c 8.0 H Calcium 6.7 L 6.7 L Total Protein 5.8 L 5.8 L Albumin 2.3 L 2.2 L Globulin Albumin/Globulin Ratio 0.7 L 0.6 L Prealbumin 13.3 L Procalcitonin TSH 5.24 H Vancomycin Trough 07/03/21 07/02/21 07/02/21 05:15 07:46 07:46 RBC 2.47 L 2.46 L Hgb 7.6 L 7.7 L Hct 24.7 L 24.5 L MCV MCHC 30.8 L MPV 10.9 H 10.9 H Neut % (Auto) Lymph % (Auto) 9.0 L 9.2 L Lymph # (Auto) 0.72 L 0.68 L Sodium 132 L Chloride 95 L Carbon Dioxide 20 L Anion Gap 17.0 H BUN 46 H Creatinine 10.9 H* Glucose 184 H Hemoglobin A1c Calcium 6.9 L Total Protein Albumin 2.6 L Globulin Albumin/Globulin Ratio 0.8 L Prealbumin Procalcitonin TSH Vancomycin Trough 07/01/21 07/01/21 07/01/21 14:16 14:16 14:15 RBC 2.92 L Hgb 9.0 L Hct 28.8 L MCV MCHC MPV 10.9 H Neut % (Auto) 86.6 H Lymph % (Auto) 7.0 L Lymph # (Auto) 0.46 L Sodium Chloride Carbon Dioxide Anion Gap BUN Creatinine Glucose Hemoglobin A1c 8.2 H Calcium Total Protein Albumin Globulin Albumin/Globulin Ratio Prealbumin Procalcitonin 0.43 H TSH Vancomycin Trough 07/01/21 07/01/21 10:50 10:50 RBC 2.65 L Hgb 8.2 L Hct 26.6 L MCV 100.4 H MCHC 30.8 L MPV 11.0 H Neut % (Auto) 83.1 H Lymph % (Auto) 5.7 L Lymph # (Auto) 0.50 L Sodium Chloride Carbon Dioxide 20 L Anion Gap 19.0 H BUN 47 H Creatinine 10.6 H* Glucose 164 H Hemoglobin A1c Calcium 7.8 L Total Protein Albumin 2.6 L Globulin 3.8 H Albumin/Globulin Ratio 0.7 L Prealbumin Procalcitonin TSH Vancomycin Trough Meds: Medications Acetaminophen (Acetaminophen 325 Mg Tablet) 650 mg PO Q6HP PRN; Protocol PRN Reason: Per Pain Protocol/Fever > 101 Last Admin: 07/03/21 23:00 Dose: 650 mg Documented by: Albuterol/Ipratropium (Ipratropium/Albuterol 3 Ml Ampul.Neb) 3 ml NEB Q4HRT PRN PRN Reason: Wheezing Allopurinol (Allopurinol 100 Mg Tablet) 100 mg PO QDAY [facility] Last Admin: 07/04/21 08:51 Dose: 100 mg Documented by: Apixaban (Apixaban 5 Mg Tablet) 2.5 mg PO BID [facility] Last Admin: 07/04/21 08:48 Dose: 2.5 mg Documented by: Atorvastatin Calcium (Atorvastatin 40 Mg Tablet) 40 mg PO HS [facility] Last Admin: 07/03/21 21:46 Dose: 40 mg Documented by: Cinacalcet (Cinacalcet 30 Mg Tablet) 30 mg PO QDAY [facility] Last Admin: 07/04/21 08:51 Dose: 30 mg Documented by: Collagenase (Collagenase Top Oint Tube 30gm) 1 dose TOPICAL DAILY [facility] Last Admin: 07/04/21 09:42 Dose: 1 ml Documented by: Dextrose (Dextrose 50% 50 Ml Vial) 0 ml IV UD PRN PRN Reason: Hypoglycemia Diagnostic Test (Pha) (Accu-Chek 1 Each Strip) 1 each FS ACHS [facility] Last Admin: 07/04/21 08:51 Dose: 1 each Documented by: Diphenoxylate HCl/Atropine (Diphenoxylate Hcl/Atropine 1 Tablet) 1 tab PO TID PRN PRN Reason: diarrhea Docusate Sodium (Docusate Sodium 100 Mg Capsule) 100 mg PO BID [facility] Last Admin: 07/04/21 08:52 Dose: Not Given Documented by: Gabapentin (Gabapentin 300 Mg Capsule) 300 mg PO QDAY [facility] Last Admin: 07/04/21 08:51 Dose: 300 mg Documented by: Glucose (Dextrose 31 Gm Oral.Susp) 15 gm PO PRN PRN PRN Reason: Hypoglycemia Hydralazine HCl (Hydralazine 25 Mg Tablet) 50 mg PO TID [facility] Last Admin: 07/04/21 08:50 Dose: 50 mg Documented by: Hydromorphone HCl (Hydromorphone 2 Mg Tablet) 2 mg PO TIDP PRN; Protocol PRN Reason: pain Last Admin: 07/04/21 09:41 Dose: 2 mg Documented by: Piperacillin Sod/Tazobactam (Sod 2.25 gm/ Dextrose) 50 mls @ 100 mls/hr IV Q8H [facility]; Protocol Last Infusion: 07/04/21 06:06 Dose: Infused Documented by: Insulin Glargine (Insulin Glargine, Human 1 Unit/0.01 Ml) 60 unit SQ QDAY [facility] Last Admin: 07/04/21 08:49 Dose: 60 units Documented by: Insulin Human Lispro (Insulin Lispro 1 Unit/0.01 Ml Unit) 0 unit SQ ACHS [facility]; Protocol Last Admin: 07/04/21 08:50 Dose: 1 unit Documented by: Levothyroxine Sodium (Levothyroxine Sodium 112 Mcg Tablet) 224 mcg PO QDAY [facility] Last Admin: 07/04/21 08:51 Dose: 224 mcg Documented by: Loperamide HCl (Loperamide 2 Mg Capsule) 4 mg PO Q6H PRN PRN Reason: Loose Stool Losartan Potassium (Losartan 50 Mg Tablet) 100 mg PO DAILY [facility] Last Admin: 07/04/21 08:51 Dose: 100 mg Documented by: Methocarbamol (Methocarbamol 500 Mg Tablet) 500 mg PO TID [facility] Last Admin: 07/04/21 08:51 Dose: 500 mg Documented by: Ondansetron HCl (Ondansetron 4 Mg/2 Ml Vial) 4 mg IV Q6HP PRN PRN Reason: Nausea And Vomiting Gentamicin 0.1 % (Ointment) 1 dose TOPICAL TID [facility] Last Admin: 07/04/21 08:52 Dose: Not Given Documented by: Sucroferric Oxyhydroxide [ Velphoro] 500 Mg Tablet 2 dose PO TIDCC [facility] Last Admin: 07/04/21 08:51 Dose: Not Given Documented by: Senna (Sennosides 1 Tablet) 2 tab PO HS [facility] Last Admin: 07/03/21 21:49 Dose: Not Given Documented by: Sevelamer Carbonate (Sevelamer 800 Mg Tablet) 2,400 mg PO TIDCC [facility] Last Admin: 07/04/21 08:49 Dose: 2,400 mg Documented by: Sodium Chloride (0.9 % Sodium Chloride 10 Ml Syringe) 10 ml IV Q8 [facility] Last Admin: 07/04/21 05:36 Dose: 10 ml Documented by: Torsemide (Torsemide 10 Mg Tablet) 40 mg PO DAILY [facility] Last Admin: 07/04/21 08:50 Dose: 40 mg Documented by: Trazodone HCl (Trazodone Hcl 50 Mg Tablet) 25 mg PO QHS PRN PRN Reason: insomnia Vancomycin HCl (Vancomycin Per Pharmacy) 1 order IV UD [facility]; Protocol Zolpidem Tartrate (Zolpidem 5 Mg Tablet) 5 mg PO HSP PRN PRN Reason: Insomnia A/P Assessment and plan (1) Type 2 diabetes mellitus: Status: Chronic Qualifiers: Diabetes mellitus long-term 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 Diabetes mellitus complication status: with kidney complications Diabetes mellitus complication detail: with chronic kidney disease Chronic kidney disease stage: on chronic dialysis Qualified Code(s): E11.22 - Type 2 diabetes mellitus with diabetic chronic kidney disease; N18.6 - End stage renal disease; 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; Z99.2 - Dependence on renal dialysis (2) Obesity (BMI 30.0-34.9): Status: Chronic (3) Essential hypertension: Status: Chronic (4) Hypothyroidism: Status: Chronic Qualifiers: Hypothyroidism type: acquired Qualified Code(s): E03.9 - Hypothyroidism, unspecified (5) [facility]FP (current) use of anticoagulants: Status: Chronic Comment: PCP monitoring for a fib stroke PPx (6) Amputation of lower limb: Status: Chronic (7) Hyperlipidemia: Status: Chronic (8) Diabetic neuropathy: Status: Chronic Qualifiers: Diabetes mellitus type: type 2 Diabetes mellitus complication detail: diabetic autonomic neuropathy Qualified Code(s): E11.43 - Type 2 diabetes me llitus with diabetic autonomic (poly)neuropathy (9) ESRD on peritoneal dialysis: Status: Acute (10) MAUDE on CPAP: Status: Acute (11) Cellulitis of left lower extremity: Status: Acute (12) Anemia due to chronic kidney disease: Status: Deleted Narrative A/P Narrative: Assessment and Plans: 1. Left leg cellulitis: DDx: calciphylaxis Stays in inpatient med surg Dr. Cameron consulted, recs. appreciated, performed bedside debridement and skin biopsy on 07/02 Lactic acid Procalcitonin 0.43 Blood culture, no growth to date Wound culture, growing gram negative bacillus cbc w/ auto diff in the AM to trend WBC Tylenol PRN fever [place] PRN moderate pain Vancomycin Zosyn Consult wound care team Physical therapy Occupational therapy 2. T2DM with diabetic neuropathy: HgA1c Hold oral hypoglycemics Lantus 60 unit SQ daily Low dose correctional scale insulin AC HS Patient has glucose monitor Hypoglycemia protocol Diabetic diet Gabapentin 3. ESRD on peritoneal dialysis: Consult Dr. Almaraz for dialysis needs, recs. appreciated Continue peritoneal dialysis every evening CMP in the AM to trend kidney functions Would switch to hemodialysis after being discharged from hospital 4. Anemia associated with ESRD: Daily cbc w/ auto diff in the AM to trend H/H 5. Essential HTN: Currently normotensive Continue Losartan and Hydralazine 6. Mixed dyslipidemia: Continue statin therapy 7. MAUDE on CPAP: Continue CPAP at night while sleeping 8. Hypothyroidism: Continue oral thyroid replacement therapy 9. 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 h/o PAD with recent stent placement in right leg: Continue Eliquis Continue statin GI ppx: not currently indicated DVT ppx: Eliquis Code status: Full Prognosis: guarded Disposition: inpatient med surg; PT and OT for placement planning Time Spent With Patient Time: Total time spent is greater than 50% in coordination of care (as documented) at patient's floor/unit and/or counseling patient: Total time spent with greater than 50% in coordination of care (as documented) at patient's floor/unit and/or counseling patient:: Greater than 35 minutes QUALITY Stroke Symptom Onset Unknown: No VTE Deep Vein Thrombosis/Pulmonary Embolism Present on Admission: No
--- NOTE | 2021-07-04 11:52 | Nephrology Progress Note ---
SUBJECTIVE Subjective Patient information: Note initiated : 07/04/21 at 11:51 am Patient: Bart Pagan 61 y/o M admitted on 07/01/21 for Left Lower Extremity Infection. Chief Complaint: Left leg wound Principal diagnosis: ESRD, PAD ( REVASCUALRZAIOTN ), DM Debridement Left lateral leg wounds. Pertinent ROS: Left leg wound Constitutional Vitals: Vital Signs Temp Pulse Resp BP Pulse Ox 97.8 F 76 17 128/88 96 07/04/21 08:45 07/04/21 06:43 07/04/21 06:43 07/04/21 08:45 07/04/21 06:43 Period Temp Pulse Resp BP Sys/Mancini Pulse Ox Last 24 Hr 97.8 F-98.9 F 71-80 14-20 115-138/67-88 94-98 Intake and Output 07/03/21 07/04/21 07/04/21 21:59 05:59 13:59 Intake Total 750 250 50 Balance 750 250 50 Weight 252 lb 5 oz Intake & Output: Intake & Output 07/03/21 07/04/21 07/04/21 21:59 05:59 13:59 Intake Total 750 250 50 Balance 750 250 50 Weight 252 lb 5 oz Intake: IV 50 50 50 Zosyn 2.25 gm In Dextrose 5% in 50 50 50 Water 50 ml @ 100 mls/hr IV Q8H [facility] Rx#:[id number] Oral 700 200 Other: Urine Appearance Clear Urine Color Pale Stool Size Smear Stool Consistency Loose General appearance: cooperative and no acute distress Head Head exam: Present normal inspection Eye Eye exam: Present normal appearance ENT ENT exam: Present mucous membranes moist Respiratory Respiratory exam: Absent respiratory distress Cardiovascular Cardiovascular exam: Present normal rate and rhythm GI/Abdominal GI/Abdominal exam: Present soft; Absent tenderness Extremities Exam Extremities exam: Absent joint swelling or pedal edema Neurological Exam Neurological exam: Present alert and oriented X3 Psychiatric Psychiatric exam: Present normal affect and normal mood Skin Skin exam: Present warm; Absent rash A/P Assessment and plan (1) ESRD on peritoneal dialysis: Assessment and plan: Bart Pagan is a 61-year-old male with end stage renal disease on peritoneal dialysis, chronic anemia due to ESRD, hypertension, diabetes mellitus type 2, chronic atrial fibrillation on Apixaban, peripheral vascular disease (heavy calcifications of the femoral artery and the runoff vessels), left lower extremity infected diabetic foot ulcer, admitted on 07/01/21. He was sent from wound care for worsening of left lower extremity infected diabetic foot ulcer which requires IV antibiotics. Nephrology consultation was requested for management of peritoneal dialysis. End stage renal disease on peritoneal dialysis. Chronic anemia due to ESRD, [facility] with Odilon and Ingrid. Secondary hyperparathyroidism. Peripheral vascular disease with heavy calcifications of the femoral artery and the runoff vessels. Left lower extremity infected diabetic foot ulcer which requires IV antibiotics (Vancomycin and Zosyn). Metabolic acidosis, mild. 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 He suspected calciphylaxis of the wound and requests a wound biopsy for confirmation. IV Sodium thiosulfate will then be considered at the dialysis unit with switch back to hemodialysis. i also discussed the patient with Dr. Cameron regarding further management. Progress: CCPD; treatment time 12 hours, total volume 10,500 ml, 2.5%, fill volume 2,400 ml, four exchanges, last fill 300 ml. Complicated skin and skin structure infection, left lateral leg and patches of dry gangrene necrosis of left lateral leg s/p bedside debridement and tissue biopsy for calciphylaxis andtissue specimen for culture and sensitivity on 07/03/21. Recommendations/Plan: Continue CCPD as inpatient. He will need to switch to intermittent hemodialysis for SNF discharge. Switching to hemodialysis also recommended for better clearance. Antibiotic dosage for peritoneal dialysis. PRBC transfusion for hemoglobin <7.0 unless symptomatic anemia. 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
[2021-07-04] MEDS: DIPHENOXYLATE HCL/ATROPINE 1 TABLET PO PRN (17:00)
[2021-07-04] MEDS: SENNOSIDES 1 TABLET PO SCH (20:43)
[2021-07-04] MEDS: ATORVASTATIN 40 MG TABLET PO SCH (20:55)
[2021-07-05] MEDS: PIPERACILLIN SODIUM/TAZOBACTAM 2.25 GM in DEXTROSE 5% IN WATER 50 ML IV SCH ×3 (05:56→21:55)
[2021-07-05] MEDS: 0.9 % SODIUM CHLORIDE 10 ML SYRINGE IV SCH ×3 (05:57→21:02)
[2021-07-05 07:06] LABS: Basophils # (Auto) 0.08 K/mcL (0.00-0.30); Basophils % (Auto) 0.9 % (0.0-2.0); Eosinophils # (Auto) 0.37 K/mcL (0.00-0.70); Eosinophils % (Auto) 4.2 % (0.0-7.0); Hematocrit 26.1 % (40.1-51.0); Hemoglobin 7.7 g/dL (13.7-17.5); Lymphocytes # (Auto) 0.66 K/mcL (1.50-4.80); Lymphocytes % (Auto) 7.6 % (15.5-49.0); Mean Cell Volume 101.6 fL (80.0-100.0); Mean Corpuscular HGB Conc 29.5 g/dL (31.0-36.0); Mean Platelet Volume 10.7 fL (7.4-10.4); Neutrophils % (Auto) 79.3 % (38.0-78.0); Platelet Count 295 K/mcL (140-440); RBC 2.57 M/mcL (4.63-6.08); Red Cell Distribution Width 13.5 % (11.5-14.5); WBC 8.7 K/mcL (4.5-11.0)
--- NOTE | 2021-07-05 07:32 | Nephrology Progress Note ---
SUBJECTIVE Subjective Patient information: Note initiated : 07/05/21 at 7:30 am Patient: Bart Pagan 61 y/o M admitted on 07/01/21 for Left Lower Extremity Infection. Chief Complaint: Left leg wound Principal diagnosis: ESRD, PAD ( REVASCUALRZAIOTN ), DM Debridement Left lateral leg wounds. Pertinent ROS: Left leg wound Constitutional Vitals: Vital Signs Temp Pulse Resp BP Pulse Ox 99.2 F H 81 20 125/68 97 07/05/21 07:28 07/05/21 07:28 07/05/21 07:28 07/05/21 07:28 07/05/21 07:28 Period Temp Pulse Resp BP Sys/Mancini Pulse Ox Last 24 Hr 97.8 F-99.2 F 73-81 18-20 106-140/43-88 93-97 Intake and Output 07/04/21 07/05/21 07/05/21 21:59 05:59 13:59 Intake Total 650 250 50 Balance 650 250 50 Weight 249 lb 4 oz Intake & Output: Intake & Output 07/04/21 07/05/21 07/05/21 21:59 05:59 13:59 Intake Total 650 250 50 Balance 650 250 50 Weight 249 lb 4 oz Intake: IV 50 50 50 Zosyn 2.25 gm In Dextrose 5% in 50 50 50 Water 50 ml @ 100 mls/hr IV Q8H [facility] Rx#:[id number] Oral 600 200 Other: Stool Size Large Stool Color Brown Stool Consistency Liquid # Bowel Movements 1 General appearance: cooperative and no acute distress Head Head exam: Present normal inspection Eye Eye exam: Present normal appearance ENT ENT exam: Present mucous membranes moist Respiratory Respiratory exam: Absent respiratory distress Cardiovascular Cardiovascular exam: Present normal rate and rhythm GI/Abdominal GI/Abdominal exam: Present soft; Absent tenderness Extremities Exam Extremities exam: Absent joint swelling or pedal edema Neurological Exam Neurological exam: Present alert and oriented X3 Psychiatric Psychiatric exam: Present normal affect and normal mood Skin Skin exam: Present warm; Absent rash A/P Assessment and plan (1) ESRD on peritoneal dialysis: Assessment and plan: Bart Pagan is a 61-year-old male with end stage renal disease on peritoneal dialysis, chronic anemia due to ESRD, hypertension, diabetes mellitus type 2, chronic atrial fibrillation on Apixaban, peripheral vascular disease (heavy calcifications of the femoral artery and the runoff vessels), left lower extremity infected diabetic foot ulcer, admitted on 07/01/21. He was sent from wound care for worsening of left lower extremity infected diabetic foot ulcer which requires IV antibiotics. Nephrology consultation was requested for management of peritoneal dialysis. End stage renal disease on peritoneal dialysis. Chronic anemia due to ESRD, [facility] with Odilon and Ingrid. Secondary hyperparathyroidism. Peripheral vascular disease with heavy calcifications of the femoral artery and the runoff vessels. Left lower extremity infected diabetic foot ulcer which requires IV antibiotics (Vancomycin and Zosyn). Metabolic acidosis, mild. 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 He suspected calciphylaxis of the wound and requests a wound biopsy for confirmation. IV Sodium thiosulfate will then be considered at the dialysis unit with switch back to hemodialysis. i also discussed the patient with Dr. Cameron regarding further management. Progress: CCPD; treatment time 12 hours, total volume 10,500 ml, 2.5%, fill volume 2,400 ml, four exchanges, last fill 300 ml. Complicated skin and skin structure infection, left lateral leg and patches of dry gangrene necrosis of left lateral leg s/p bedside debridement and tissue biopsy for calciphylaxis andtissue specimen for culture and sensitivity on 07/03/21. Recommendations/Plan: Continue CCPD as inpatient. He will need to switch to intermittent hemodialysis for SNF discharge. Switching to hemodialysis also recommended for better clearance. Antibiotic dosage for peritoneal dialysis. PRBC transfusion for hemoglobin <7.0 unless symptomatic anemia. 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
[2021-07-05] MEDS: SEVELAMER 800 MG TABLET PO SCH ×3 (08:18→16:31)
[2021-07-05] MEDS: GABAPENTIN 300 MG CAPSULE PO SCH (08:19)
[2021-07-05] MEDS: LOSARTAN 50 MG TABLET PO SCH (08:19)
[2021-07-05] MEDS: ALLOPURINOL 100 MG TABLET PO SCH (08:19)
[2021-07-05] MEDS: APIXABAN 5 MG TABLET PO SCH ×2 (08:19→21:04)
[2021-07-05] MEDS: hydrALAZINE 25 MG TABLET PO SCH ×3 (08:20→21:05)
[2021-07-05] MEDS: INSULIN LISPRO 1 UNIT/0.01 ML UNIT SQ SCH ×4 (08:20→21:15)
[2021-07-05] MEDS: CINACALCET 30 MG TABLET PO SCH (08:20)
[2021-07-05] MEDS: LEVOTHYROXINE SODIUM 112 MCG TABLET PO SCH (08:20)
[2021-07-05] MEDS: INSULIN GLARGINE, HUMAN 1 UNIT/0.01 ML SQ SCH (08:20)
[2021-07-05] MEDS: METHOCARBAMOL 500 MG TABLET PO SCH ×3 (08:20→21:04)
[2021-07-05] MEDS: TORSEMIDE 10 MG TABLET PO SCH (08:20)
[2021-07-05 08:25] LABS: ALT/SGPT 15 U/L (<40); AST/SGOT 12 U/L (<40); Albumin 2.3 gm/dL (3.2-5.2); Albumin/Globulin Ratio 0.7 (1.0-2.3); Alkaline Phosphatase 85 U/L (39-117); Bilirubin,Total 0.2 mg/dL (0.1-1.0); Blood Urea Nitrogen 44 mg/dL (8-23); Calcium 6.6 mg/dL (8.6-10.4); Carbon Dioxide 18 mmol/L (22-30); Chloride 92 mmol/L (96-108); Globulin 3.5 gm/dL (2.2-3.7); Glomerular Filtration Rate 5; Glucose 150 mg/dL (70-105)
[2021-07-05] MEDS: DOCUSATE SODIUM 100 MG CAPSULE PO SCH ×2 (08:34→21:08)
[2021-07-05] MEDS: GENTAMICIN 0.1% TOPICAL SCH ×3 (08:34→21:02)
--- NOTE | 2021-07-05 11:14 | Internal Med Progress Note ---
SUBJECTIVE Subjective Patient information: Note initiated : 07/05/21 at 11:12 am Service Date, if different from initiated Date: [] Patient: Bart Pagan 61 y/o M admitted on 07/01/21 for Left Lower Extremity Infection. Chief Complaint: [] Principal diagnosis: ESRD, PAD ( REVASCUALRZAIOTN ), DM Debridement Left lateral leg wounds. Interval history: History of present illness: Mr. Pagan is a 61 year old M history of end-stage renal disease on peritoneal dialysis, type 2 diabetes mellitus, essential hypertension, mixed dyslipidemia, hypothyroidism, obstructive sleep apnea on CPAP, right sided BKA about 3 years ago, peripheral arterial disease status post left leg stents placement 1 week ago, presenting with 3 weeks history of left leg rash, swelling, warmth, and pustular discharge. He was seen in Dr. Cameron office 2 weeks ago. Patient is currently complaining of shaking chills but denies any fever or diaphoresis. He denies any GI upset such as nausea vomiting. He denies any general body weakness. He denies any pain of his left leg. Vital signs at ED presentations significant for mild tachycardia heart rate in the 100s, with rest of the vital signs within normal limits. Labs significant for lack of leukocytosis with WBC 8.7. Hemoglobin and hematocrit 2.65 and 8.2, respectively. It is unclear where the sample was actually accurate or what was it hemolyzed. History significant for serum creatinine level 10.6. Serum lactic acid 1.0. 07/02: Afebrile overnight. Wound and blood cultures no growth to date. c/o moderate aching and tingling of his left lower leg. Denies nausea or vomiting. Denies fever, chills, or sweating. 07/03: s/p bedside debridement and skin biopsy by Dr. Cameron on 07/02. Afebrile overnight. Blood and wound cultures no growth to date. Denies any fever chills or sweating. Denies left leg pain. Denies nausea or vomiting. 07/04: Afebrile. Wound culture growing gram negative bacillus. Blood culture no growth to date. Denies any left lower leg pain. Denies fever or chills or sweating. Denies nausea or vomiting. Good appetite. Denies general body weakness. 11/15: Afebrile. Wound culture growing gram negative bacillus. Blood culture no growth to date. Denies any left lower leg pain. Denies fever or chills or sweating. Denies nausea or vomiting. Good appetite. Denies general body weakness. Constitutional Vitals: Vital Signs Temp Pulse Resp BP Pulse Ox 37.3 C H 81 20 125/68 97 07/05/21 09:03 07/05/21 07:28 07/05/21 07:28 07/05/21 09:03 07/05/21 07:28 Period Temp Pulse Resp BP Sys/Mancini Pulse Ox Last 24 Hr 36.6 C-37.3 C 73-81 18-20 106-140/43-78 93-97 Intake and Output 07/04/21 07/05/21 07/05/21 21:59 05:59 13:59 Intake Total 650 250 50 Balance 650 250 50 Weight 113.058 kg Intake & Output: Intake & Output 07/04/21 07/05/21 07/05/21 21:59 05:59 13:59 Intake Total 650 250 50 Balance 650 250 50 Weight 113.058 kg Intake: IV 50 50 50 Zosyn 2.25 gm In Dextrose 5% in 50 50 50 Water 50 ml @ 100 mls/hr IV Q8H [facility] Rx#:[id number] Oral 600 200 Other: Stool Size Large Stool Color Brown Stool Consistency Liquid # Bowel Movements 1 General appearance: cooperative and no acute distress Head Head exam: Present atraumatic and normal inspection Eye Eye exam: Present normal appearance ENT ENT exam: Present mucous membranes moist, normal exam and normal external ear exam Neck Neck exam: Present normal inspection Respiratory Respiratory exam: Present normal respiratory exam Cardiovascular Cardiovascular exam: Present normal rate and rhythm GI/Abdominal GI/Abdominal exam: Present normal bowel sounds Extremities Exam Extremities exam: Present full ROM; Absent normal inspection or tenderness Additional comments: Right BKA Back Exam Back exam: Present normal inspection Neurological Exam Neurological exam: Present alert and oriented X3 Skin Skin exam: Present erythema, rash and warm; Absent intact or vesicles OBJ DATA Labs CBC & Chem 7: 07/05/21 05:00 07/05/21 05:13 Labs: Abnormal Lab Results 07/05/21 07/05/21 07/05/21 06:53 05:13 05:00 RBC 2.57 L Hgb 7.7 L Hct 26.1 L MCV 101.6 H MCHC 29.5 L MPV 10.7 H Neut % (Auto) 79.3 H Lymph % (Auto) 7.6 L Lymph # (Auto) 0.66 L Sodium 129 L Chloride 92 L Carbon Dioxide 18 L Anion Gap 19.0 H BUN 44 H Creatinine 10.5 H* Glucose 150 H Hemoglobin A1c Calcium 6.6 L Total Protein 5.8 L Albumin 2.3 L Albumin/Globulin Ratio 0.7 L Prealbumin Procalcitonin TSH Vancomycin Trough 20.9 H* 07/04/21 07/04/21 07/04/21 07:56 05:21 05:20 RBC 2.56 L Hgb 7.7 L Hct 25.6 L MCV MCHC 30.1 L MPV 10.7 H Neut % (Auto) Lymph % (Auto) 8.0 L Lymph # (Auto) 0.66 L Sodium Chloride Carbon Dioxide Anion Gap BUN Creatinine Glucose Hemoglobin A1c Calcium Total Protein Albumin Albumin/Globulin Ratio Prealbumin Procalcitonin 0.52 H TSH Vancomycin Trough 24.5 H* 07/04/21 07/04/21 07/03/21 05:20 05:20 05:15 RBC Hgb Hct MCV MCHC MPV Neut % (Auto) Lymph % (Auto) Lymph # (Auto) Sodium 132 L 131 L Chloride 91 L 92 L Carbon Dioxide 21 L 20 L Anion Gap 20.0 H 19.0 H BUN 43 H 42 H Creatinine 11.7 H* 10.5 H* Glucose 124 H 123 H Hemoglobin A1c 8.0 H Calcium 6.7 L 6.7 L Total Protein 5.8 L 5.8 L Albumin 2.3 L 2.2 L Albumin/Globulin Ratio 0.7 L 0.6 L Prealbumin 13.3 L Procalcitonin TSH 5.24 H Vancomycin Trough 07/03/21 05:15 RBC 2.47 L Hgb 7.6 L Hct 24.7 L MCV MCHC 30.8 L MPV 10.9 H Neut % (Auto) Lymph % (Auto) 9.0 L Lymph # (Auto) 0.72 L Sodium Chloride Carbon Dioxide Anion Gap BUN Creatinine Glucose Hemoglobin A1c Calcium Total Protein Albumin Albumin/Globulin Ratio Prealbumin Procalcitonin TSH Vancomycin Trough Meds: Medications Acetaminophen (Acetaminophen 325 Mg Tablet) 650 mg PO Q6HP PRN; Protocol PRN Reason: Per Pain Protocol/Fever > 101 Last Admin: 07/03/21 23:00 Dose: 650 mg Documented by: Albuterol/Ipratropium (Ipratropium/Albuterol 3 Ml Ampul.Neb) 3 ml NEB Q4HRT PRN PRN Reason: Wheezing Allopurinol (Allopurinol 100 Mg Tablet) 100 mg PO QDAY [facility] Last Admin: 07/05/21 08:19 Dose: 100 mg Documented by: Apixaban (Apixaban 5 Mg Tablet) 2.5 mg PO BID [facility] Last Admin: 07/05/21 08:19 Dose: 2.5 mg Documented by: Atorvastatin Calcium (Atorvastatin 40 Mg Tablet) 40 mg PO HS [facility] Last Admin: 07/04/21 20:55 Dose: 40 mg Documented by: Cinacalcet (Cinacalcet 30 Mg Tablet) 30 mg PO QDAY [facility] Last Admin: 07/05/21 08:20 Dose: 30 mg Documented by: Collagenase (Collagenase Top Oint Tube 30gm) 1 dose TOPICAL DAILY [facility] Last Admin: 07/04/21 09:42 Dose: 1 ml Documented by: Dextrose (Dextrose 50% 50 Ml Vial) 0 ml IV UD PRN PRN Reason: Hypoglycemia Diagnostic Test (Pha) (Accu-Chek 1 Each Strip) 1 each FS ACHS [facility] Last Admin: 07/05/21 11:11 Dose: 1 each Documented by: Diphenoxylate HCl/Atropine (Diphenoxylate Hcl/Atropine 1 Tablet) 1 tab PO TID PRN PRN Reason: diarrhea Last Admin: 07/04/21 17:00 Dose: 1 tab Documented by: Docusate Sodium (Docusate Sodium 100 Mg Capsule) 100 mg PO BID [facility] Last Admin: 07/05/21 08:34 Dose: Not Given Documented by: Gabapentin (Gabapentin 300 Mg Capsule) 300 mg PO QDAY [facility] Last Admin: 07/05/21 08:19 Dose: 300 mg Documented by: Glucose (Dextrose 31 Gm Oral.Susp) 15 gm PO PRN PRN PRN Reason: Hypoglycemia Hydralazine HCl (Hydralazine 25 Mg Tablet) 50 mg PO TID [facility] Last Admin: 07/05/21 08:20 Dose: 50 mg Documented by: Hydromorphone HCl (Hydromorphone 2 Mg Tablet) 2 mg PO TIDP PRN; Protocol PRN Reason: pain Last Admin: 07/04/21 20:55 Dose: 2 mg Documented by: Piperacillin Sod/Tazobactam (Sod 2.25 gm/ Dextrose) 50 mls @ 100 mls/hr IV Q8H [facility]; Protocol Last Infusion: 07/05/21 06:48 Dose: Infused Documented by: Insulin Glargine (Insulin Glargine, Human 1 Unit/0.01 Ml) 60 unit SQ QDAY [facility] Last Admin: 07/05/21 08:20 Dose: 60 units Documented by: Insulin Human Lispro (Insulin Lispro 1 Unit/0.01 Ml Unit) 0 unit SQ ACHS [facility]; Protocol Last Admin: 07/05/21 11:11 Dose: 1 unit Documented by: Levothyroxine Sodium (Levothyroxine Sodium 112 Mcg Tablet) 224 mcg PO QDAY [facility] Last Admin: 07/05/21 08:20 Dose: 224 mcg Documented by: Loperamide HCl (Loperamide 2 Mg Capsule) 4 mg PO Q6H PRN PRN Reason: Loose Stool Last Admin: 07/04/21 15:23 Dose: 4 mg Documented by: Losartan Potassium (Losartan 50 Mg Tablet) 100 mg PO DAILY [facility] Last Admin: 07/05/21 08:19 Dose: 100 mg Documented by: Methocarbamol (Methocarbamol 500 Mg Tablet) 500 mg PO TID [facility] Last Admin: 07/05/21 08:20 Dose: 500 mg Documented by: Ondansetron HCl (Ondansetron 4 Mg/2 Ml Vial) 4 mg IV Q6HP PRN PRN Reason: Nausea And Vomiting Gentamicin 0.1 % (Ointment) 1 dose TOPICAL TID [facility] Last Admin: 07/05/21 08:34 Dose: Not Given Documented by: Sucroferric Oxyhydroxide [ Velphoro] 500 Mg Tablet 2 dose PO TIDCC [facility] Last Admin: 07/05/21 07:16 Dose: Not Given Documented by: Senna (Sennosides 1 Tablet) 2 tab PO HS [facility] Last Admin: 07/04/21 20:43 Dose: Not Given Documented by: Sevelamer Carbonate (Sevelamer 800 Mg Tablet) 2,400 mg PO TIDCC [facility] Last Admin: 07/05/21 11:12 Dose: 2,400 mg Documented by: Sodium Bicarbonate (Sodium Bicarbonate 650 Mg Tablet) 1,300 mg PO BID [facility] Sodium Chloride (0.9 % Sodium Chloride 10 Ml Syringe) 10 ml IV Q8 [facility] Last Admin: 07/05/21 05:57 Dose: 10 ml Documented by: Torsemide (Torsemide 10 Mg Tablet) 40 mg PO DAILY [facility] Last Admin: 07/05/21 08:20 Dose: 40 mg Documented by: Trazodone HCl (Trazodone Hcl 50 Mg Tablet) 25 mg PO QHS PRN PRN Reason: insomnia Zolpidem Tartrate (Zolpidem 5 Mg Tablet) 5 mg PO HSP PRN PRN Reason: Insomnia A/P Assessment and plan (1) Type 2 diabetes mellitus: Status: Chronic Qualifiers: 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 mellitus intermediate frame tender insulin use: with nursing home use Diabetes mellitus complication status: with kidney complications Diabetes mellitus complication detail: with chronic kidney disease Chronic kidney disease stage: on chronic dialysis Qualified Code(s): E11.22 - Type 2 diabetes mellitus with diabetic chronic kidney disease; N18.6 - End stage renal disease; Z79.4 - MCFP (current) use of insulin; Z99.2 - Dependence on renal dialysis (2) Obesity (BMI 30.0-34.9): Status: Chronic (3) Essential hypertension: Status: Chronic (4) Hypothyroidism: Status: Chronic Qualifiers: Hypothyroidism type: acquired Qualified Code(s): E03.9 - Hypothyroidism, unspecified (5) MCFP (current) use of anticoagulants: Status: Chronic Comment: PCP monitoring for a fib stroke PPx (6) Amputation of lower limb: Status: Chronic (7) Hyperlipidemia: Status: Chronic (8) Diabetic neuropathy: Status: Chronic Qualifiers: Diabetes mellitus type: type 2 Diabetes mellitus complication detail: diabetic autonomic neuropathy Qualified Code(s): E11.43 - Type 2 diabetes mellitus with diabetic autonomic (poly)neuropathy (9) ESRD on peritoneal dialysis: Status: Acute (10) MAUDE on CPAP: Status: Acute (11) Cellulitis of left lower extremity: Status: Acute (12) Anemia due to chronic kidney disease: Status: Deleted Narrative A/P Narrative: Assessment and Plans: 1. Left leg cellulitis: DDx: calciphylaxis Stays in inpatient med surg Dr. Cameron consulted, recs. appreciated, performed bedside debridement and skin biopsy on 07/02 Lactic acid Procalcitonin 0.43 Blood culture, no growth to date Wound culture, growing gram negative bacillus cbc w/ auto diff in the AM to trend WBC Tylenol PRN fever [place] PRN moderate pain d/c Vancomycin Zosyn Consult wound care team Physical therapy Occupational therapy 2. T2DM with diabetic neuropathy: HgA1c Hold oral hypoglycemics Lantus 60 unit SQ daily Low dose correctional scale insulin AC HS Patient has glucose monitor Hypoglycemia protocol Diabetic diet Gabapentin 3. ESRD on peritoneal dialysis: Consult Dr. Almaraz for dialysis needs, recs. appreciated Continue peritoneal dialysis every evening CMP in the AM to trend kidney functions Would switch to hemodialysis after being discharged from hospital 4. Anemia associated with ESRD: Daily cbc w/ auto diff in the AM to trend H/H 5. Essential HTN: Currently normotensive Continue Losartan and Hydralazine 6. Mixed dyslipidemia: Continue statin therapy 7. MAUDE on CPAP: Continue CPAP at night while sleeping 8. Hypothyroidism: Continue oral thyroid replacement therapy 9. 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 h/o PAD with recent stent placement in right leg: Continue Eliquis Continue statin GI ppx: not currently indicated DVT ppx: Eliquis Code status: Full Prognosis: guarded Disposition: inpatient med surg; PT and OT for placement planning Time Spent With Patient Time: Total time spent is greater than 50% in coordination of care (as documented) at patient's floor/unit and/or counseling patient: Total time spent with greater than 50% in coordination of care (as documented) at patient's floor/unit and/or counseling patient:: 25 - 35 minutes QUALITY Stroke Symptom Onset Unknown: No VTE Deep Vein Thrombosis/Pulmonary Embolism Present on Admission: No
[2021-07-05] MEDS: HYDROmorphone 2 MG TABLET PO PRN ×3 (11:22→22:45)
[2021-07-05] MEDS: SODIUM BICARBONATE 650 MG TABLET PO SCH ×2 (11:22→21:03)
[2021-07-05] MEDS: COLLAGENASE TOP OINT TUBE 30GM TOPICAL SCH (11:25)
--- NOTE | 2021-07-05 12:29 | Internal Med Progress Note ---
SUBJECTIVE Subjective Patient information: Note initiated : 07/05/21 at 12:24 pm Service Date, if different from initiated Date: [] Patient: Bart Pagan 61 y/o M admitted on 07/01/21 for Left Lower Extremity Infection. Chief Complaint: [] Principal diagnosis: ESRD, PAD ( REVASCUALRZAIOTN ), DM Debridement Left lateral leg wounds. Interval history: History of present illness: Mr. Pagan is a 61 year old M history of end-stage renal disease on peritoneal dialysis, type 2 diabetes mellitus, essential hypertension, mixed dyslipidemia, hypothyroidism, obstructive sleep apnea on CPAP, right sided BKA about 3 years ago, peripheral arterial disease status post left leg stents placement 1 week ago, presenting with 3 weeks history of left leg rash, swelling, warmth, and pustular discharge. He was seen in Dr. Cameron office 2 weeks ago. Patient is currently complaining of shaking chills but denies any fever or diaphoresis. He denies any GI upset such as nausea vomiting. He denies any general body weakness. He denies any pain of his left leg. Vital signs at ED presentations significant for mild tachycardia heart rate in the 100s, with rest of the vital signs within normal limits. Labs significant for lack of leukocytosis with WBC 8.7. Hemoglobin and hematocrit 2.65 and 8.2, respectively. It is unclear where the sample was actually accurate or what was it hemolyzed. History significant for serum creatinine level 10.6. Serum lactic acid 1.0. 07/02: Afebrile overnight. Wound and blood cultures no growth to date. c/o moderate aching and tingling of his left lower leg. Denies nausea or vomiting. Denies fever, chills, or sweating. 07/03: s/p bedside debridement and skin biopsy by Dr. Cameron on 07/02. Afebrile overnight. Blood and wound cultures no growth to date. Denies any fever chills or sweating. Denies left leg pain. Denies nausea or vomiting. 07/04: Afebrile. Wound culture growing gram negative bacillus. Blood culture no growth to date. Denies any left lower leg pain. Denies fever or chills or sweating. Denies nausea or vomiting. Good appetite. Denies general body weakness. 11/15: Afebrile. Wound culture growing gram negative bacillus. Blood culture no growth to date. Denies any left lower leg pain. Denies fever or chills or sweating. Denies nausea or vomiting. Good appetite. Denies general body weakness. 07/06 Constitutional Vitals: Vital Signs Temp Pulse Resp BP Pulse Ox 99.2 F H 81 20 125/68 95 07/05/21 09:03 07/05/21 07:28 07/05/21 07:28 07/05/21 09:03 07/05/21 10:46 Period Temp Pulse Resp BP Sys/Mancini Pulse Ox Last 24 Hr 97.8 F-99.2 F 73-81 18-20 114-140/62-78 94-97 Intake and Output 07/04/21 07/05/21 07/05/21 21:59 05:59 13:59 Intake Total 650 250 50 Balance 650 250 50 Weight 113.058 kg Intake & Output: Intake & Output 07/04/21 07/05/21 07/05/21 21:59 05:59 13:59 Intake Total 650 250 50 Balance 650 250 50 Weight 113.058 kg Intake: IV 50 50 50 Zosyn 2.25 gm In Dextrose 5% in 50 50 50 Water 50 ml @ 100 mls/hr IV Q8H [facility] Rx#:[id number] Oral 600 200 Other: Stool Size Large Stool Color Brown Stool Consistency Liquid # Bowel Movements 1 Exam: General: Alert, Awake, No acute Distress Eyes/N/T: EOMI, Head/Neck: neck supple, CV: RRR, No murmurs, Pulm: Clear b/l, no wheezing/rhonchi/rales Abd: soft, nontender, +BS x4 Ext: no clubbing/cyanosis, Right BKA. left leg erythema Neuro: Alert, no focal deficits, moves all extremities, Skin: warm/dry OBJ DATA Labs CBC & Chem 7: 07/05/21 05:00 07/05/21 05:13 Labs: Abnormal Lab Results 07/05/21 07/05/21 07/05/21 06:53 05:13 05:00 RBC 2.57 L Hgb 7.7 L Hct 26.1 L MCV 101.6 H MCHC 29.5 L MPV 10.7 H Neut % (Auto) 79.3 H Lymph % (Auto) 7.6 L Lymph # (Auto) 0.66 L Sodium 129 L Chloride 92 L Carbon Dioxide 18 L Anion Gap 19.0 H BUN 44 H Creatinine 10.5 H* Glucose 150 H Hemoglobin A1c Calcium 6.6 L Total Protein 5.8 L Albumin 2.3 L Albumin/Globulin Ratio 0.7 L Prealbumin Procalcitonin TSH Vancomycin Trough 20.9 H* 07/04/21 07/04/21 07/04/21 07:56 05:21 05:20 RBC 2.56 L Hgb 7.7 L Hct 25.6 L MCV MCHC 30.1 L MPV 10.7 H Neut % (Auto) Lymph % (Auto) 8.0 L Lymph # (Auto) 0.66 L Sodium Chloride Carbon Dioxide Anion Gap BUN Creatinine Glucose Hemoglobin A1c Calcium Total Protein Albumin Albumin/Globulin Ratio Prealbumin Procalcitonin 0.52 H TSH Vancomycin Trough 24.5 H* 07/04/21 07/04/21 07/03/21 05:20 05:20 05:15 RBC Hgb Hct MCV MCHC MPV Neut % (Auto) Lymph % (Auto) Lymph # (Auto) Sodium 132 L 131 L Chloride 91 L 92 L Carbon Dioxide 21 L 20 L Anion Gap 20.0 H 19.0 H BUN 43 H 42 H Creatinine 11.7 H* 10.5 H* Glucose 124 H 123 H Hemoglobin A1c 8.0 H Calcium 6.7 L 6.7 L Total Protein 5.8 L 5.8 L Albumin 2.3 L 2.2 L Albumin/Globulin Ratio 0.7 L 0.6 L Prealbumin 13.3 L Procalcitonin TSH 5.24 H Vancomycin Trough 07/03/21 05:15 RBC 2.47 L Hgb 7.6 L Hct 24.7 L MCV MCHC 30.8 L MPV 10.9 H Neut % (Auto) Lymph % (Auto) 9.0 L Lymph # (Auto) 0.72 L Sodium Chloride Carbon Dioxide Anion Gap BUN Creatinine Glucose Hemoglobin A1c Calcium Total Protein Albumin Albumin/Globulin Ratio Prealbumin Procalcitonin TSH Vancomycin Trough Meds: Medications Acetaminophen (Acetaminophen 325 Mg Tablet) 650 mg PO Q6HP PRN; Protocol PRN Reason: Per Pain Protocol/Fever > 101 Last Admin: 07/03/21 23:00 Dose: 650 mg Documented by: Albuterol/Ipratropium (Ipratropium/Albuterol 3 Ml Ampul.Neb) 3 ml NEB Q4HRT PRN PRN Reason: Wheezing Allopurinol (Allopurinol 100 Mg Tablet) 100 mg PO QDAY [facility] Last Admin: 07/05/21 08:19 Dose: 100 mg Documented by: Apixaban (Apixaban 5 Mg Tablet) 2.5 mg PO BID [facility] Last Admin: 07/05/21 08:19 Dose: 2.5 mg Documented by: Atorvastatin Calcium (Atorvastatin 40 Mg Tablet) 40 mg PO HS [facility] Last Admin: 07/04/21 20:55 Dose: 40 mg Documented by: Cinacalcet (Cinacalcet 30 Mg Tablet) 30 mg PO QDAY [facility] Last Admin: 07/05/21 08:20 Dose: 30 mg Documented by: Collagenase (Collagenase Top Oint Tube 30gm) 1 dose TOPICAL DAILY [facility] Last Admin: 07/05/21 11:25 Dose: 1 dose Documented by: Dextrose (Dextrose 50% 50 Ml Vial) 0 ml IV UD PRN PRN Reason: Hypoglycemia Diagnostic Test (Pha) (Accu-Chek 1 Each Strip) 1 each FS ACHS [facility] Last Admin: 07/05/21 11:11 Dose: 1 each Documented by: Diphenoxylate HCl/Atropine (Diphenoxylate Hcl/Atropine 1 Tablet) 1 tab PO TID PRN PRN Reason: diarrhea Last Admin: 07/04/21 17:00 Dose: 1 tab Documented by: Docusate Sodium (Docusate Sodium 100 Mg Capsule) 100 mg PO BID [facility] Last Admin: 07/05/21 08:34 Dose: Not Given Documented by: Gabapentin (Gabapentin 300 Mg Capsule) 300 mg PO QDAY [facility] Last Admin: 07/05/21 08:19 Dose: 300 mg Documented by: Glucose (Dextrose 31 Gm Oral.Susp) 15 gm PO PRN PRN PRN Reason: Hypoglycemia Hydralazine HCl (Hydralazine 25 Mg Tablet) 50 mg PO TID [facility] Last Admin: 07/05/21 08:20 Dose: 50 mg Documented by: Hydromorphone HCl (Hydromorphone 2 Mg Tablet) 2 mg PO TIDP PRN; Protocol PRN Reason: pain Last Admin: 07/05/21 11:22 Dose: 2 mg Documented by: Piperacillin Sod/Tazobactam (Sod 2.25 gm/ Dextrose) 50 mls @ 100 mls/hr IV Q8H [facility]; Protocol Last Infusion: 07/05/21 06:48 Dose: Infused Documented by: Insulin Glargine (Insulin Glargine, Human 1 Unit/0.01 Ml) 60 unit SQ QDAY [facility] Last Admin: 07/05/21 08:20 Dose: 60 units Documented by: Insulin Human Lispro (Insulin Lispro 1 Unit/0.01 Ml Unit) 0 unit SQ ACHS [facility]; Protocol Last Admin: 07/05/21 11:11 Dose: 1 unit Documented by: Levothyroxine Sodium (Levothyroxine Sodium 112 Mcg Tablet) 224 mcg PO QDAY [facility] Last Admin: 07/05/21 08:20 Dose: 224 mcg Documented by: Loperamide HCl (Loperamide 2 Mg Capsule) 4 mg PO Q6H PRN PRN Reason: Loose Stool Last Admin: 07/04/21 15:23 Dose: 4 mg Documented by: Losartan Potassium (Losartan 50 Mg Tablet) 100 mg PO DAILY [facility] Last Admin: 07/05/21 08:19 Dose: 100 mg Documented by: Methocarbamol (Methocarbamol 500 Mg Tablet) 500 mg PO TID [facility] Last Admin: 07/05/21 08:20 Dose: 500 mg Documented by: Ondansetron HCl (Ondansetron 4 Mg/2 Ml Vial) 4 mg IV Q6HP PRN PRN Reason: Nausea And Vomiting Gentamicin 0.1 % (Ointment) 1 dose TOPICAL TID [facility] Last Admin: 07/05/21 08:34 Dose: Not Given Documented by: Sucroferric Oxyhydroxide [ Velphoro] 500 Mg Tablet 2 dose PO TIDCC [facility] Last Admin: 07/05/21 11:34 Dose: Not Given Documented by: Senna (Sennosides 1 Tablet) 2 tab PO HS [facility] Last Admin: 07/04/21 20:43 Dose: Not Given Documented by: Sevelamer Carbonate (Sevelamer 800 Mg Tablet) 2,400 mg PO TIDCC [facility] Last Admin: 07/05/21 11:12 Dose: 2,400 mg Documented by: Sodium Bicarbonate (Sodium Bicarbonate 650 Mg Tablet) 1,300 mg PO BID [facility] Last Admin: 07/05/21 11:22 Dose: 1,300 mg Documented by: Sodium Chloride (0.9 % Sodium Chloride 10 Ml Syringe) 10 ml IV Q8 [facility] Last Admin: 07/05/21 05:57 Dose: 10 ml Documented by: Torsemide (Torsemide 10 Mg Tablet) 40 mg PO DAILY [facility] Last Admin: 07/05/21 08:20 Dose: 40 mg Documented by: Trazodone HCl (Trazodone Hcl 50 Mg Tablet) 25 mg PO QHS PRN PRN Reason: insomnia Zolpidem Tartrate (Zolpidem 5 Mg Tablet) 5 mg PO HSP PRN PRN Reason: Insomnia A/P Narrative A/P Narrative: Assessment and Plans: *Left leg cellulitis: -DDx: calciphylaxis -Dr. Nisha alvarado, performed bedside debridement and skin biopsy (07/02) -Procalcitonin 0.43 -Blood culture, no growth to date / Wound culture, growing gram negative bacillus -d/c Vancomycin / cont Zosyn *T2DM with diabetic neuropathy: -HgA1c -Lantus 60 unit SQ daily, SSI, Gabapentin *ESRD on peritoneal dialysis: -Dr. Almaraz for dialysis needs, recs. appreciated -Would switch to hemodialysis after being discharged from hospital *Anemia associated with ESRD: * Essential HTN: Continue Losartan and Hydralazine *MAUDE on CPAP: Continue CPAP at night while sleeping *Hypothyroidism: *Obesity BMI 37: *h/o PAD with recent stent placement in right leg: -Continue Eliquis / statin *ppx: Eliquis Code status: Fagot Maker Spent With Patient Time: Total time spent is greater than 50% in coordination of care (as documented) at patient's floor/unit and/or counseling patient: QUALITY Stroke Symptom Onset Unknown: No VTE Deep Vein Thrombosis/Pulmonary Embolism Present on Admission: No
--- NOTE | 2021-07-05 12:57 | Surgical Pathology Report ---
Histology Microscopic Diagnosis Specimen A- SKIN, LEFT LOWER LEG WOUND BIOPSY: --- SOFT TISSUE NECROSIS WITH ACTIVE INFLAMMATION, BACTERIAL FORMS AND FOCAL CALCIFICATION. --- NO MALIGNANCY IDENTIFIED. (EBD) Clinical History Left lower leg non-healing necrotic wound. Procedural Impression Rule out calcinosis. Gross Description Received in formalin labeled biopsy left leg, is a dusky roblero piece of skin. It is 1.3 x 0.9 x 0.3 cm. The margin is inked black. The specimen is trisected. Totally submitted in one cassette. (SCB:adj) Electronically Signed Jennifer Garcia MD, FCAP Electronically Signed 07/05/2021 12:56
--- NOTE | 2021-07-05 16:51 | General Surgery Progress Note ---
SUBJECTIVE Subjective Patient information: Note initiated : 07/05/21 at 4:46 pm Service Date, if different from initiated Date: [] Patient: Bart Pagan 61 y/o M admitted on 07/01/21 for Left Lower Extremity Infection. Chief Complaint: [] Principal diagnosis: ESRD, PAD ( REVASCUALRZAIOTN ), DM Debridement Left lateral leg wounds. Additional PMFSH (Level 3 Only): Patient seen earlier this afternoon. Constitutional Vitals: Vital Signs Temp Pulse Resp BP Pulse Ox 98.7 F 79 20 128/66 94 07/05/21 15:51 07/05/21 15:51 07/05/21 15:51 07/05/21 12:00 07/05/21 15:51 Period Temp Pulse Resp BP Sys/Mancini Pulse Ox Last 24 Hr 97.8 F-99.2 F 68-81 18-20 125-140/66-78 94-97 Intake and Output 07/05/21 07/05/21 07/05/21 05:59 13:59 21:59 Intake Total 450 42 7431 Balance 371 66 9873 Weight 249 lb 4 oz Patient Weight 07/06/21 05:59 Weight 249 lb 4 oz Intake & Output: Intake & Output 07/05/21 07/05/21 07/05/21 05:59 13:59 21:59 Intake Total 437 05 1088 Balance 731 16 1686 Weight 249 lb 4 oz Intake: IV 50 50 50 Zosyn 2.25 gm In Dextrose 5% in 50 50 50 Water 50 ml @ 100 mls/hr IV Q8H [facility] Rx#:[id number] Oral 200 1500 Other: Meal Snack Percent of Meal Consumed 100% Feeding Ability Independent Exam: AVSS. No interval changes STONEY. Local wound care LEFT lateral leg wound is ongoing. Wound c/s Providencia, Enterococcus and Enterobacter cloacae Final sensitivities awaited. Tissue biopsy: Bacteria and calcifications ( Calcinosis ) Reviewed Nephrology note. ( Dr. Almaraz ) A/P Narrative A/P Narrative: Assessment: Progress reviewed. Local wound care ongoing. Awaiting final sensitivity reports of multiple bacteria. Plan: Continue present treatment. Following patient. Time Spent With Patient Time: Total time spent is greater than 50% in coordination of care (as documented) at patient's floor/unit and/or counseling patient: Total time spent with greater than 50% in coordination of care (as documented) at patient's floor/unit and/or counseling patient:: 15 - 24 minutes
[2021-07-05] MEDS: ACETAMINOPHEN 325 MG TABLET PO PRN (17:30)
[2021-07-05] MEDS: SENNOSIDES 1 TABLET PO SCH (21:02)
[2021-07-05] MEDS: ATORVASTATIN 40 MG TABLET PO SCH (21:05)
[2021-07-06] MEDS: 0.9 % SODIUM CHLORIDE 10 ML SYRINGE IV SCH ×3 (05:29→21:08)
[2021-07-06] MEDS: PIPERACILLIN SODIUM/TAZOBACTAM 2.25 GM in DEXTROSE 5% IN WATER 50 ML IV SCH ×3 (05:29→21:48)
[2021-07-06 06:50] LABS: Basophils % (Auto) 1.1 % (0.0-2.0); Eosinophils # (Auto) 0.36 K/mcL (0.00-0.70); Eosinophils % (Auto) 3.9 % (0.0-7.0); Hematocrit 27.5 % (40.1-51.0); Hemoglobin 8.3 g/dL (13.7-17.5); Lymphocytes # (Auto) 0.56 K/mcL (1.50-4.80); Lymphocytes % (Auto) 6.1 % (15.5-49.0); Mean Cell Volume 98.2 fL (80.0-100.0); Mean Corpuscular HGB Conc 30.2 g/dL (31.0-36.0); Mean Platelet Volume 10.7 fL (7.4-10.4); Monocytes # (Auto) 0.71 K/mcL (0.10-0.90); Monocytes % (Auto) 7.7 % (1.0-12.0); Neutrophils % (Auto) 81.2 % (38.0-78.0); Platelet Count 308 K/mcL (140-440); Red Cell Distribution Width 13.3 % (11.5-14.5); WBC 9.2 K/mcL (4.5-11.0)
[2021-07-06] MEDS: INSULIN LISPRO 1 UNIT/0.01 ML UNIT SQ SCH ×4 (07:49→21:28)
[2021-07-06 07:53] LABS: ALT/SGPT 16 U/L (<40); AST/SGOT 13 U/L (<40); Albumin 2.4 gm/dL (3.2-5.2); Albumin/Globulin Ratio 0.7 (1.0-2.3); Alkaline Phosphatase 91 U/L (39-117); Bilirubin,Direct < 0.2 mg/dL (0-0.3); Bilirubin,Total 0.2 mg/dL (0.1-1.0); Blood Urea Nitrogen 46 mg/dL (8-23); Carbon Dioxide 19 mmol/L (22-30); Chloride 91 mmol/L (96-108); Globulin 3.6 gm/dL (2.2-3.7); Glomerular Filtration Rate 5; Glucose 125 mg/dL (70-105); Lactate Dehydrogenase 262 U/L (135-225); Phosphorous 6.9 mg/dL (2.5-4.5); Triglycerides 89 mg/dL (<150); Uric Acid 6.3 mg/dL (2.5-8.0)
--- NOTE | 2021-07-06 08:05 | Nephrology Progress Note ---
SUBJECTIVE Subjective Patient information: Note initiated : 07/06/21 at 8:04 am Patient: Brat Pagan 61 y/o M admitted on 07/01/21 for Left Lower Extremity Infection. Chief Complaint: Left leg wound Principal diagnosis: ESRD, PAD ( REVASCUALRZAIOTN ), DM Debridement Left lateral leg wounds. Pertinent ROS: Left leg wound Constitutional Vitals: Vital Signs Temp Pulse Resp BP Pulse Ox 98.6 F 78 16 122/82 93 07/06/21 04:15 07/06/21 04:15 07/06/21 04:15 07/06/21 04:15 07/06/21 04:15 Period Temp Pulse Resp BP Sys/Mancini Pulse Ox Last 24 Hr 97.8 F-99.2 F 68-79 16-20 110-128/49-82 93-97 Intake and Output 07/05/21 07/06/21 07/06/21 21:59 05:59 13:59 Intake Total 2089 400 50 Output Total 125 Balance 2089 275 50 Weight 253 lb 1.6 oz Intake & Output: Intake & Output 07/05/21 07/06/21 07/06/21 21:59 05:59 13:59 Intake Total 2089 400 50 Output Total 125 Balance 2089 275 50 Weight 253 lb 1.6 oz Intake: IV 50 50 50 Zosyn 2.25 gm In Dextrose 5% in 50 50 50 Water 50 ml @ 100 mls/hr IV Q8H [facility] Rx#:[id number] Oral 2039 350 Output: Void Amount 125 Other: Meal Dinner Percent of Meal Consumed 100% Feeding Ability Independent General appearance: cooperative and no acute distress Head Head exam: Present normal inspection Eye Eye exam: Present normal appearance ENT ENT exam: Present mucous membranes moist Respiratory Respiratory exam: Absent respiratory distress Cardiovascular Cardiovascular exam: Present normal rate and rhythm GI/Abdominal GI/Abdominal exam: Present soft; Absent tenderness Extremities Exam Extremities exam: Absent joint swelling or pedal edema Neurological Exam Neurological exam: Present alert and oriented X3 Psychiatric Psychiatric exam: Present normal affect and normal mood Skin Skin exam: Present warm; Absent rash A/P Assessment and plan (1) ESRD on peritoneal dialysis: Assessment and plan: Bart Pagan is a 61-year-old male with end stage renal disease on peritoneal dialysis, chronic anemia due to ESRD, hypertension, diabetes mellitus type 2, chronic atrial fibrillation on Apixaban, peripheral vascular disease (heavy calcifications of the femoral artery and the runoff vessels), left lower extremity infected diabetic foot ulcer, admitted on 07/01/21. He was sent from wound care for worsening of left lower extremity infected diabetic foot ulcer which requires IV antibiotics. Nephrology consultation was requested for management of peritoneal dialysis. End stage renal disease on peritoneal dialysis. Chronic anemia due to ESRD, [facility] with Odilon and Ingrid. Secondary hyperparathyroidism. Peripheral vascular disease with heavy calcifications of the femoral artery and the runoff vessels. Left lower extremity infected diabetic foot ulcer which requires IV antibiotics. Metabolic acidosis, persistent. Sodium Bicarbonate 1,300 mg twice daily started on 07/05/21. I discussed the patient with his primary delivery aide Dr. Jacinto. He suspected calciphylaxis of the wound and requests a wound biopsy for confirmation. IV Sodium thiosulfate will then be considered at the dialysis unit with switch back to hemodialysis. i also discussed the patient with Dr. Cameron regarding further management. Progress: CCPD; treatment time 12 hours, total volume 10,500 ml, 2.5%, fill volume 2,400 ml, four exchanges, last fill 300 ml. Complicated skin and skin structure infection, left lateral leg and patches of dry gangrene necrosis of left lateral leg s/p bedside debridement and tissue biopsy for calciphylaxis andtissue specimen for culture and sensitivity on 07/03/21. Recommendations/Plan: Continue CCPD as inpatient. He will need to switch to intermittent hemodialysis for SNF discharge. Switching to hemodialysis also recommended for better clearance. Antibiotic dosage for peritoneal dialysis. PRBC transfusion for hemoglobin <7.0 unless symptomatic anemia. 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
--- NOTE | 2021-07-06 08:44 | Internal Med Progress Note ---
SUBJECTIVE Subjective Patient information: Note initiated : 07/06/21 at 8:39 am Service Date, if different from initiated Date: [] Patient: Bart Pagan 61 y/o M admitted on 07/01/21 for Left Lower Extremity Infection. Chief Complaint: [] Principal diagnosis: ESRD, PAD ( REVASCUALRZAIOTN ), DM Debridement Left lateral leg wounds. Interval history: History of present illness: Mr. Pagan is a 61 year old M history of end-stage renal disease on peritoneal dialysis, type 2 diabetes mellitus, essential hypertension, mixed dyslipidemia, hypothyroidism, obstructive sleep apnea on CPAP, right sided BKA about 3 years ago, peripheral arterial disease status post left leg stents placement 1 week ago, presenting with 3 weeks history of left leg rash, swelling, warmth, and pustular discharge. He was seen in Dr. Marie orss office 2 weeks ago. Patient is currently complaining of shaking chills but denies any fever or diaphoresis. He denies any GI upset such as nausea vomiting. He denies any general body weakness. He denies any pain of his left leg. Vital signs at ED presentations significant for mild tachycardia heart rate in the 100s, with rest of the vital signs within normal limits. Labs significant for lack of leukocytosis with WBC 8.7. Hemoglobin and hematocrit 2.65 and 8.2, respectively. It is unclear where the sample was actually accurate or what was it hemolyzed. History significant for serum creatinine level 10.6. Serum lactic acid 1.0. 07/02: Afebrile overnight. Wound and blood cultures no growth to date. c/o moderate aching and tingling of his left lower leg. Denies nausea or vomiting. Denies fever, chills, or sweating. 07/03: s/p bedside debridement and skin biopsy by Dr. Cameron on 07/02. Afebrile overnight. Blood and wound cultures no growth to date. Denies any fever chills or sweating. Denies left leg pain. Denies nausea or vomiting. 07/04: Afebrile. Wound culture growing gram negative bacillus. Blood culture no growth to date. Denies any left lower leg pain. Denies fever or chills or sweating. Denies nausea or vomiting. Good appetite. Denies general body weakness. 07/05: Afebrile. Wound culture growing gram negative bacillus. Blood culture no growth to date. Denies any left lower leg pain. Denies fever or chills or sweating. Denies nausea or vomiting. Good appetite. Denies general body weakness. 07/06 No overnight or new complaints. Wound cultures growing [address] Cameron for wound care. Review of Systems: denies headache/fever/chills/nausea/vomiting/chest or abdominal pain/cough/dyspnea/diarrhea. Otherwise see above. Constitutional Vitals: Vital Signs Temp Pulse Resp BP Pulse Ox 98.6 F 78 16 122/82 93 07/06/21 04:15 07/06/21 04:15 07/06/21 04:15 07/06/21 04:15 07/06/21 04:15 Period Temp Pulse Resp BP Sys/Mancini Pulse Ox Last 24 Hr 97.8 F-99.2 F 68-79 16-20 110-128/49-82 93-97 Intake and Output 07/05/21 07/06/21 07/06/21 21:59 05:59 13:59 Intake Total 2089 400 50 Output Total 125 Balance 2089 275 50 Weight 114.804 kg Intake & Output: Intake & Output 07/05/21 07/06/21 07/06/21 21:59 05:59 13:59 Intake Total 2089 400 50 Output Total 125 Balance 2089 275 50 Weight 114.804 kg Intake: IV 50 50 50 Zosyn 2.25 gm In Dextrose 5% in 50 50 50 Water 50 ml @ 100 mls/hr IV Q8H [facility] Rx#:[id number] Oral 2039 350 Output: Void Amount 125 Other: Meal Dinner Percent of Meal Consumed 100% Feeding Ability Independent Exam: General: Alert, Awake, No acute Distress Eyes/N/T: EOMI, Head/Neck: neck supple, CV: RRR, No murmurs, Pulm: Clear b/l, no wheezing/rhonchi/rales Abd: soft, nontender, +BS x4 Ext: no clubbing/cyanosis, Right BKA. left leg dressings intact Neuro: Alert, no focal deficits, moves all extremities, Skin: warm/dry OBJ DATA Labs CBC & Chem 7: 07/06/21 05:12 07/06/21 05:12 Labs: Abnormal Lab Results 07/06/21 07/06/21 07/05/21 05:12 05:12 06:53 RBC 2.80 L Hgb 8.3 L Hct 27.5 L MCV MCHC 30.2 L MPV 10.7 H Neut % (Auto) 81.2 H Lymph % (Auto) 6.1 L Lymph # (Auto) 0.56 L Sodium 129 L Chloride 91 L Carbon Dioxide 19 L Anion Gap 19.0 H BUN 46 H Creatinine 10.1 H* Glucose 125 H Hemoglobin A1c Calcium 7.0 L Phosphorus 6.9 H* Lactate Dehydrogenase 262 H Total Protein Albumin 2.4 L Albumin/Globulin Ratio 0.7 L Prealbumin Procalcitonin TSH Vancomycin Trough 20.9 H* 07/05/21 07/05/21 07/04/21 05:13 05:00 07:56 RBC 2.57 L Hgb 7.7 L Hct 26.1 L MCV 101.6 H MCHC 29.5 L MPV 10.7 H Neut % (Auto) 79.3 H Lymph % (Auto) 7.6 L Lymph # (Auto) 0.66 L Sodium 129 L Chloride 92 L Carbon Dioxide 18 L Anion Gap 19.0 H BUN 44 H Creatinine 10.5 H* Glucose 150 H Hemoglobin A1c Calcium 6.6 L Phosphorus Lactate Dehydrogenase Total Protein 5.8 L Albumin 2.3 L Albumin/Globulin Ratio 0.7 L Prealbumin Procalcitonin TSH Vancomycin Trough 24.5 H* 07/04/21 07/04/21 07/04/21 05:21 05:20 05:20 RBC 2.56 L Hgb 7.7 L Hct 25.6 L MCV MCHC 30.1 L MPV 10.7 H Neut % (Auto) Lymph % (Auto) 8.0 L Lymph # (Auto) 0.66 L Sodium Chloride Carbon Dioxide Anion Gap BUN Creatinine Glucose Hemoglobin A1c 8.0 H Calcium Phosphorus Lactate Dehydrogenase Total Protein Albumin Albumin/Globulin Ratio Prealbumin 13.3 L Procalcitonin 0.52 H TSH 5.24 H Vancomycin Trough 07/04/21 05:20 RBC Hgb Hct MCV MCHC MPV Neut % (Auto) Lymph % (Auto) Lymph # (Auto) Sodium 132 L Chloride 91 L Carbon Dioxide 21 L Anion Gap 20.0 H BUN 43 H Creatinine 11.7 H* Glucose 124 H Hemoglobin A1c Calcium 6.7 L Phosphorus Lactate Dehydrogenase Total Protein 5.8 L Albumin 2.3 L Albumin/Globulin Ratio 0.7 L Prealbumin Procalcitonin TSH Vancomycin Trough Meds: Medications Acetaminophen (Acetaminophen 325 Mg Tablet) 650 mg PO Q6HP PRN; Protocol PRN Reason: Per Pain Protocol/Fever > 101 Last Admin: 07/05/21 17:30 Dose: 650 mg Documented by: Albuterol/Ipratropium (Ipratropium/Albuterol 3 Ml Ampul.Neb) 3 ml NEB Q4HRT PRN PRN Reason: Wheezing Allopurinol (Allopurinol 100 Mg Tablet) 100 mg PO QDAY [facility] Last Admin: 07/05/21 08:19 Dose: 100 mg Documented by: Apixaban (Apixaban 5 Mg Tablet) 2.5 mg PO BID [facility] Last Admin: 07/05/21 21:04 Dose: 2.5 mg Documented by: Atorvastatin Calcium (Atorvastatin 40 Mg Tablet) 40 mg PO HS [facility] Last Admin: 07/05/21 21:05 Dose: 40 mg Documented by: Calcium Acetate (Calcium Acetate 667 Mg Capsule) 667 mg PO TIDCC [facility] Cinacalcet (Cinacalcet 30 Mg Tablet) 30 mg PO QDAY [facility] Last Admin: 07/05/21 08:20 Dose: 30 mg Documented by: Collagenase (Collagenase Top Oint Tube 30gm) 1 dose TOPICAL DAILY [facility] Last Admin: 07/05/21 11:25 Dose: 1 dose Documented by: Dextrose (Dextrose 50% 50 Ml Vial) 0 ml IV UD PRN PRN Reason: Hypoglycemia Diagnostic Test (Pha) (Accu-Chek 1 Each Strip) 1 each FS ACHS [facility] Last Admin: 07/06/21 07:48 Dose: 1 each Documented by: Diphenoxylate HCl/Atropine (Diphenoxylate Hcl/Atropine 1 Tablet) 1 tab PO TID PRN PRN Reason: diarrhea Last Admin: 07/04/21 17:00 Dose: 1 tab Documented by: Docusate Sodium (Docusate Sodium 100 Mg Capsule) 100 mg PO BID [facility] Last Admin: 07/05/21 21:08 Dose: Not Given Documented by: Gabapentin (Gabapentin 300 Mg Capsule) 300 mg PO QDAY [facility] Last Admin: 07/05/21 08:19 Dose: 300 mg Documented by: Glucose (Dextrose 31 Gm Oral.Susp) 15 gm PO PRN PRN PRN Reason: Hypoglycemia Hydralazine HCl (Hydralazine 25 Mg Tablet) 50 mg PO TID [facility] Last Admin: 07/05/21 21:05 Dose: 50 mg Documented by: Hydromorphone HCl (Hydromorphone 2 Mg Tablet) 2 mg PO TIDP PRN; Protocol PRN Reason: pain Last Admin: 07/05/21 22:45 Dose: 2 mg Documented by: Piperacillin Sod/Tazobactam (Sod 2.25 gm/ Dextrose) 50 mls @ 100 mls/hr IV Q8H [facility]; Protocol Last Infusion: 07/06/21 06:21 Dose: Infused Documented by: Insulin Glargine (Insulin Glargine, Human 1 Unit/0.01 Ml) 60 unit SQ QDAY [facility] Last Admin: 07/05/21 08:20 Dose: 60 units Documented by: Insulin Human Lispro (Insulin Lispro 1 Unit/0.01 Ml Unit) 0 unit SQ ACHS [facility]; Protocol Last Admin: 07/06/21 07:49 Dose: 2 unit Documented by: Levothyroxine Sodium (Levothyroxine Sodium 112 Mcg Tablet) 224 mcg PO QDAY [facility] Last Admin: 07/05/21 08:20 Dose: 224 mcg Documented by: Loperamide HCl (Loperamide 2 Mg Capsule) 4 mg PO Q6H PRN PRN Reason: Loose Stool Last Admin: 07/04/21 15:23 Dose: 4 mg Documented by: Losartan Potassium (Losartan 50 Mg Tablet) 100 mg PO DAILY [facility] Last Admin: 07/05/21 08:19 Dose: 100 mg Documented by: Methocarbamol (Methocarbamol 500 Mg Tablet) 500 mg PO TID [facility] Last Admin: 07/05/21 21:04 Dose: 500 mg Documented by: Ondansetron HCl (Ondansetron 4 Mg/2 Ml Vial) 4 mg IV Q6HP PRN PRN Reason: Nausea And Vomiting Gentamicin 0.1 % (Ointment) 1 dose TOPICAL TID [facility] Last Admin: 07/05/21 21:02 Dose: Not Given Documented by: Sucroferric Oxyhydroxide [ Velphoro] 500 Mg Tablet 2 dose PO TIDCC [facility] Last Admin: 07/05/21 16:25 Dose: Not Given Documented by: Senna (Sennosides 1 Tablet) 2 tab PO HS [facility] Last Admin: 07/05/21 21:02 Dose: Not Given Documented by: Sevelamer Carbonate (Sevelamer 800 Mg Tablet) 2,400 mg PO TIDCC [facility] Last Admin: 07/05/21 16:31 Dose: 2,400 mg Documented by: Sodium Bicarbonate (Sodium Bicarbonate 650 Mg Tablet) 1,300 mg PO BID [facility] Last Admin: 07/05/21 21:03 Dose: 1,300 mg Documented by: Sodium Chloride (0.9 % Sodium Chloride 10 Ml Syringe) 10 ml IV Q8 [facility] Last Admin: 07/06/21 05:29 Dose: 10 ml Documented by: Torsemide (Torsemide 10 Mg Tablet) 40 mg PO DAILY [facility] Last Admin: 07/05/21 08:20 Dose: 40 mg Documented by: Trazodone HCl (Trazodone Hcl 50 Mg Tablet) 25 mg PO QHS PRN PRN Reason: insomnia Zolpidem Tartrate (Zolpidem 5 Mg Tablet) 5 mg PO HSP PRN PRN Reason: Insomnia A/P Narrative A/P Narrative: Assessment and Plans: *Left leg cellulitis: -DDx: calciphylaxis -Dr. Cameron following, performed bedside debridement and skin biopsy (07/02) -WC with Providencia/Enterococcus/Enterobacter, awaiting final I&S. BC no growth to date -d/c Vancomycin / cont Zosyn *T2DM with diabetic neuropathy: -HgA1c 8.0 -Lantus 60 unit SQ daily, SSI, Gabapentin *ESRD on peritoneal dialysis: -Dr. Almaraz for dialysis needs, recs. 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
[2021-07-06] MEDS: hydrALAZINE 25 MG TABLET PO SCH ×3 (09:00→21:06)
[2021-07-06] MEDS: LOSARTAN 50 MG TABLET PO SCH (09:00)
[2021-07-06] MEDS: GABAPENTIN 300 MG CAPSULE PO SCH (09:02)
[2021-07-06] MEDS: METHOCARBAMOL 500 MG TABLET PO SCH ×3 (09:02→21:06)
[2021-07-06] MEDS: LEVOTHYROXINE SODIUM 112 MCG TABLET PO SCH (09:03)
[2021-07-06] MEDS: ALLOPURINOL 100 MG TABLET PO SCH (09:03)
[2021-07-06] MEDS: SODIUM BICARBONATE 650 MG TABLET PO SCH ×2 (09:04→21:06)
[2021-07-06] MEDS: CALCIUM ACETATE 667 MG CAPSULE PO SCH ×3 (09:04→16:47)
[2021-07-06] MEDS: TORSEMIDE 10 MG TABLET PO SCH (09:04)
[2021-07-06] MEDS: CINACALCET 30 MG TABLET PO SCH (09:04)
[2021-07-06] MEDS: APIXABAN 5 MG TABLET PO SCH ×2 (09:05→21:06)
[2021-07-06] MEDS: SEVELAMER 800 MG TABLET PO SCH ×3 (09:05→16:47)
[2021-07-06] MEDS: INSULIN GLARGINE, HUMAN 1 UNIT/0.01 ML SQ SCH (09:06)
[2021-07-06] MEDS: GENTAMICIN 0.1% TOPICAL SCH ×3 (09:17→21:08)
[2021-07-06] MEDS: DOCUSATE SODIUM 100 MG CAPSULE PO SCH ×2 (11:16→21:07)
--- NOTE | 2021-07-06 11:29 | Discharge Summary ---
Discharge Provider Provider Patient information: Note initiated : 07/06/21 at 11:28 am Service Date, if different from initiated Date: [] Patient: Bart Pagan 61 y/o M admitted on 07/01/21 for Left Lower Extremity Infection. Chief Complaint: [] Date of admission: 07/01/21 15:24 Discharge date: 07/07/21 Primary care physician: May Hernandez PA-C Consults: 07/01/21 Consult to Physician [CONS] Stat Comment: Consulting Provider: Ellen Almaraz Reason For Exam: Physician to Consult Consult to Physician [CONS] Stat Comment: Consulting Provider: Earl Reina Reason For Exam: Physician to Consult 07/01/21 15:25 Consult to Physician [CONS] Stat Comment: Consulting Provider: Dickson Cameron Reason For Exam: Physician to Consult Consult to Physician [CONS] Stat Comment: Consulting Provider: Ellen Almaraz Reason For Exam: Physician to Consult Discharge Meds Discharge Medications Home Medications blood-glucose meter,continuous (Dexcom Global Cto) #1 each 09/16/19 [Rx Confirmed 07/01/21 Last Taken Unknown] blood-glucose sensor (Dexcom G6 Sensor) #3 each 09/16/19 [Rx Confirmed 07/01/21 Last Taken Unknown] blood-glucose transmitter (Dexcom G6 Transmitter) #1 each 09/16/19 [Rx Confirmed 07/01/21 Last Taken Unknown] loperamide 2 mg capsule (Imodium A-D) 4 mg PO Q6H PRN cap 04/17/20 [History Confirmed 07/01/21 Last Taken 07/01/21] atorvastatin 40 mg tablet 40 mg PO HS #90 tab 09/18/20 [Rx Confirmed 07/01/21 Last Taken 06/30/21] gabapentin 300 mg capsule 300 mg PO QDAY #90 cap 10/19/20 [Rx Confirmed 07/01/21 Last Taken Unknown] blood-glucose meter #1 ea 10/23/20 [Rx Confirmed 07/01/21 Last Taken Unknown] blood sugar diagnostic (Blood Glucose Test) #400 ea 10/28/20 [Rx Confirmed 07/01/21 Last Taken Unknown] losartan 100 mg tablet 100 mg PO QDAY #30 tab 11/09/20 [Rx Confirmed 07/01/21 Last Taken Unknown] hydralazine 50 mg tablet 50 mg PO TID #90 tab 02/10/21 [Rx Confirmed 07/01/21 Last Taken 07/01/21] torsemide 20 mg tablet 40 mg PO QDAY #180 tab 02/15/21 [Rx Confirmed 07/01/21 L ast Taken Unknown] apixaban 2.5 mg tablet 2.5 mg PO BID #180 tab 03/03/21 [Rx Confirmed 07/01/21 Last Taken 07/01/21] cholecalciferol (vitamin D3) 1,250 mcg (50,000 unit) capsule 1,250 mcg PO .Q 14 days #6 cap 03/15/21 [Rx Confirmed 07/01/21 Last Taken Unknown] gentamicin 0.1 % topical ointment 1 applic TOPICAL TID #30 g 04/08/21 [Rx Confirmed 07/01/21 Last Taken Unknown] allopurinol 100 mg tablet 100 mg PO QDAY #30 tab 04/09/21 [Rx Confirmed 07/01/21 Last Taken 07/01/21] insulin lispro 100 unit/mL subcutaneous pen (Humalog KwikPen (U-100) Insulin) See Rx Instructions .ROUTE .COMPLEX #15 ml 04/19/21 [Rx Confirmed 07/01/21 Last Taken Unknown] levothyroxine 112 mcg tablet 224 mcg PO QDAY #180 tab 04/23/21 [Rx Confirmed 07/01/21 Last Taken 07/01/21] trazodone 50 mg tablet 25 mg PO QHS PRN #60 tab 05/17/21 [Rx Confirmed 07/01/21 Last Taken Unknown] insulin glargine 100 unit/mL (3 mL) subcutaneous pen (Lantus Solostar U-100 Insulin) 60 unit (0.6 mL) SUBCUT QDAY #60 ml 05/25/21 [Rx Confirmed 07/01/21 Last Taken Unknown] diphenoxylate-atropine 2.5 mg-0.025 mg tablet (Lomotil) 1 tab PO TID PRN #60 tab 06/04/21 [Rx Confirmed 07/01/21 Last Taken Unknown] cinacalcet 30 mg tablet 30 mg PO QDAY #30 tab 06/09/21 [Rx Confirmed 07/01/21 Last Taken Unknown] sevelamer carbonate 800 mg tablet 4,000 mg PO .TID with meals #450 tab 06/15/21 [Rx Confirmed 07/01/21 Last Taken Unknown] sucroferric oxyhydroxide 500 mg chewable tablet (Velphoro) 1,000 mg PO .Tid with meals #180 tab 06/15/21 [Rx Confirmed 07/01/21 Last Taken Unknown] semaglutide 1 mg/dose (2 mg/1.5 mL) subcutaneous pen injector 1 mg (0.75 mL) SUB-Q QWEEK #3 ml 06/18/21 [Rx Confirmed 07/01/21 Last Taken Unknown] hydromorphone 2 mg tablet 2 mg PO TID PRN #90 tab 06/24/21 [Rx Confirmed 07/01/21 Last Taken Unknown] methocarbamol 500 mg tablet 500 mg PO TID #90 tab 07/01/21 [Rx Confirmed 07/01/21 Last Taken Unknown] amoxicillin 500 mg capsule 500 mg PO BID #11 cap 07/07/21 [Rx Last Taken Unknown] levofloxacin 250 mg tablet 250 mg PO Q24H #6 tab 07/07/21 [Rx Last Taken Unknown] COURSE Hospital Course Hospital course: Principal diagnosis: ESRD, PAD ( REVASCUALRZAIOTN ), DM Debridement Left lateral leg wounds. Interval history: History of present illness: Mr. Pagan is a 61 year old M history of end-stage renal disease on peritoneal dialysis, type 2 diabetes mellitus, essential hypertension, mixed dyslipidemia, hypothyroidism, obstructive sleep apnea on CPAP, right sided BKA about 3 years ago, peripheral arterial disease status post left leg stents placement 1 week ago, presenting with 3 weeks history of left leg rash, swelling, warmth, and pustular discharge. He was seen in Dr. Cameron office 2 weeks ago. Patient is currently complaining of shaking chills but denies any fever or diaphoresis. He denies any GI upset such as nausea vomiting. He denies any general body weakness. He denies any pain of his left leg. Vital signs at ED presentations significant for mild tachycardia heart rate in the 100s, with rest of the vital signs within normal limits. Labs significant for lack of leukocytosis with WBC 8.7. Hemoglobin and hematocrit 2.65 and 8.2, respectively. It is unclear where the sample was actually accurate or what was it hemolyzed. History significant for serum creatinine level 10.6. Serum lactic acid 1.0. 07/02: Afebrile overnight. Wound and blood cultures no growth to date. c/o moderate aching and tingling of his left lower leg. Denies nausea or vomiting. Denies fever, chills, or sweating. 07/03: s/p bedside debridement and skin biopsy by Dr. Cameron on 07/02. Afebrile overnight. Blood and wound cultures no growth to date. Denies any fever chills or sweating. Denies left leg pain. Denies nausea or vomiting. 07/04: Afebrile. Wound culture growing gram negative bacillus. Blood culture no growth to date. Denies any left lower leg pain. Denies fever or chills or sweating. Denies nausea or vomiting. Good appetite. Denies general body weakness. 07/05: Afebrile. Wound culture growing gram negative bacillus. Blood culture no growth to date. Denies any left lower leg pain. Denies fever or chills or sweating. Denies nausea or vomiting. Good appetite. Denies general body weakness. 07/06 No overnight or new complaints. Wound cultures growing [address] Cameron for wound care. 07/07 No changes overnight. Still awaiting final sensitivities on the third bacteria. Dr. Shirley continue wound care. Patient will go to SNF. 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 Cameron following, performed bedside debridement and skin biopsy (07/02) -WC withProvidencia/Enterococcus/Enterobacter, *T2DM with diabetic neuropathy: -HgA1c 8.0 -Lantus 60 unit SQ daily, SSI, Gabapentin *ESRD on peritoneal dialysis: -Dr. Almaraz for dialysis needs, recs. 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 Secondary discharge diagnosis: Diabetes with neuropathy end-stage renal disease on peritoneal dialysis electrolyte normalities chronic anemia hypertension obstructive sleep apnea hypothyroidism obesity PAD Time Spent with Patient Time attestation: Total time spent providing and/or coordinating discharge services: Time spent: Greater than 30 minutes EXAM Constitutional Vitals: Temp Pulse Resp BP Pulse Ox 99.2 F H 67 20 104/48 96 07/06/21 08:00 07/06/21 08:00 07/06/21 08:00 07/06/21 08:00 07/06/21 10:00 Discharge Data Data Completed and Pending Labs on day of discharge: Labs from last 24 hours 07/06/21 07/06/21 05:12 05:12 WBC 9.2 RBC 2.80 L Hgb 8.3 L Hct 27.5 L MCV 98.2 MCH 29.6 MCHC 30.2 L RDW 13.3 Plt Count 308 MPV 10.7 H Neut % (Auto) 81.2 H Lymph % (Auto) 6.1 L Guthrie % (Auto) 7.7 Eos % (Auto) 3.9 Baso % (Auto) 1.1 Lymph # (Auto) 0.56 L Guthrie # (Auto) 0.71 Eos # (Auto) 0.36 Baso # (Auto) 0.10 Absolute Neutrophils 7.48 Sodium 129 L Potassium 4.1 Chloride 91 L Carbon Dioxide 19 L Anion Gap 19.0 H BUN 46 H Creatinine 10.1 H* GFR Calculation 5 Glucose 125 H Uric Acid 6.3 Calcium 7.0 L Phosphorus 6.9 H* Magnesium 2.5 Total Bilirubin 0.2 Direct Bilirubin < 0.2 GGT 35 AST 13 ALT 16 Alkaline Phosphatase 91 Lactate Dehydrogenase 262 H Total Protein 6.0 Albumin 2.4 L Globulin 3.6 Albumin/Globulin Ratio 0.7 L Triglycerides 89 Preliminary micro results at discharge 07/02/21 12:30 Gram Stain - Preliminary Leg - Lower Left Tissue Culture - Preliminary Providencia rettgeri Enterococcus faecium (grp d) Enterobacter cloacae Discharge Plan Patient/Caregiver Discharge Instructions Activity: increase activity as tolerated Diet: Renal/Consistent Carbs Prescriptions: New amoxicillin 500 mg capsule 500 mg PO BID Qty: 11 0RF levofloxacin 250 mg tablet 250 mg PO Q24H Qty: 6 0RF Continued loperamide [Imodium A-D] 2 mg capsule 4 mg PO Q6H PRN (Reason: Abdominal Discomfort) 0RF Rx Instructions: DIALYSIS - 4 mg orally (2 mg tablet) once a day prn atorvastatin 40 mg tablet 40 mg PO HS Qty: 90 3RF gabapentin 300 mg capsule 300 mg PO QDAY Qty: 90 3RF (DME) blood-glucose meter Misc See Rx Instructions .ROUTE .MEDSUPPLY Qty: 1 0RF Rx Instructions: As directed-test sugars 4 times daily E11.9 (DME) Blood Glucose Test Strip See Rx Instructions .ROUTE .MEDSUPPLY Qty: 400 2RF Rx Instructions: True Metrix Test Strips (or similar) 4 times daily losartan 100 mg tablet 100 mg PO QDAY Qty: 30 11RF Rx Instructions: new dose hydralazine 50 mg tablet 50 mg PO TID Qty: 90 11RF Rx Instructions: New dose torsemide 20 mg tablet 40 mg PO QDAY Qty: 180 3RF cholecalciferol (vitamin D3) 1,250 mcg (50,000 unit) capsule 1,250 mcg PO .Q 14 days Qty: 6 3RF Rx Instructions: New dose schedule every other week gentamicin 0.1 % ointment 1 applic topical TID Qty: 30 11RF allopurinol 100 mg tablet 100 mg PO QDAY Qty: 30 5RF insulin lispro [Humalog KwikPen Insulin] 100 unit/mL insulin pen See Rx Instructions .ROUTE .COMPLEX Qty: 15 2RF Dose Instruction: INJECT 5 UNITS UNDER THE SKIN THREE TIMES DAILY PER SLIDING SCALE. Rx Instructions: INJECT 5 UNITS UNDER THE SKIN THREE TIMES DAILY PER SLIDING SCALE. levothyroxine 112 mcg tablet 224 mcg PO QDAY Qty: 180 1RF Lantus Solostar U-100 Insulin 100 unit/mL (3 mL) insulin pen 60 unit subcut QDAY Qty: 60 1RF cinacalcet 30 mg tablet 30 mg PO QDAY Qty: 30 12RF sevelamer carbonate 800 mg tablet 4,000 mg PO .TID with meals Qty: 450 12RF Rx Instructions: must administer with a meal/food Velphoro 500 mg tablet,chewable 1,000 mg PO .Tid with meals Qty: 180 12RF Rx Instructions: Give with meals and renvela Stop Phoslo semaglutide 1 mg/dose (2 mg/1.5 mL) pen injector 1 mg SUB-Q QWEEK Qty: 3 3RF hydromorphone 2 mg tablet 2 mg PO TID PRN (Reason: pain) Qty: 90 0RF methocarbamol 500 mg tablet 500 mg PO TID Qty: 90 3RF (DME) Dexcom G6 Sensor Device See Rx Instructions .ROUTE .MEDSUPPLY Qty: 3 0RF Rx Instructions: As directed (DME) Dexcom G6 Transmitter Device See Rx Instructions .ROUTE .MEDSUPPLY Qty: 1 0RF Rx Instructions: As directed (DME) Dexcom Global Cto Misc See Rx Instructions .ROUTE .MEDSUPPLY Qty: 1 0RF Rx Instructions: As directed apixaban 2.5 mg tablet 2.5 mg PO BID Qty: 180 1RF diphenoxylate-atropine [Lomotil] 2.5-0.025 mg tablet 1 tab PO TID PRN (Reason: diarrhea) Qty: 60 1RF trazodone 50 mg tablet 25 mg PO QHS PRN (Reason: insomnia) Qty: 60 1RF Rx Instructions: 1/2-1 tab Follow Up Plan Follow up with: May Hernandez PA-C [Primary Care Provider] - Dickson Cameron MD [Physician] - Ellen Almaraz MD [Physician] - Patient Disposition: Home, Self-Care Prognosis: Undetermined Overall status at discharge: patient is progressing back to baseline Discharge Orders: Discharge Order (Routine); Ordered 07/07/21 Ordered By: Tez Guajardo [facility] Deep Vein Thrombosis/Pulmonary Embolism Present on Admission: No
[2021-07-06] MEDS: COLLAGENASE TOP OINT TUBE 30GM TOPICAL SCH (13:26)
[2021-07-06] MEDS: HYDROmorphone 2 MG TABLET PO PRN (14:06)
[2021-07-06] MEDS: ACETAMINOPHEN 325 MG TABLET PO PRN (14:07)
--- NOTE | 2021-07-06 15:03 | General Surgery Progress Note ---
SUBJECTIVE Subjective Patient information: Note initiated : 07/06/21 at 2:55 pm Service Date, if different from initiated Date: [] Patient: Bart Pagan 61 y/o M admitted on 07/01/21 for Left Lower Extremity Infection. Chief Complaint: [] Principal diagnosis: ESRD, PAD ( REVASCUALRZAIOTN ), DM Debridement Left lateral leg wounds. Additional PMFSH (Level 3 Only): Patient seen on rounds with Alexsandra ALDRICH, Inpatient wound care nurse. Progress reviewed with Dr. Guajardo. Constitutional Vitals: Vital Signs Temp Pulse Resp BP Pulse Ox 99.1 F H 90 20 124/47 97 07/06/21 14:07 07/06/21 12:00 07/06/21 12:00 07/06/21 12:00 07/06/21 12:00 Period Temp Pulse Resp BP Sys/Mancini Pulse Ox Last 24 Hr 98.4 F-99.2 F 67-90 16-20 104-128/47-82 93-97 Intake and Output 07/06/21 07/06/21 07/06/21 05:59 13:59 21:59 Intake Total 400 500 Output Total 125 Balance 275 500 Intake & Output: Intake & Output 07/06/21 07/06/21 07/06/21 05:59 13:59 21:59 Intake Total 400 500 Output Total 125 Balance 275 500 Intake: IV 50 50 Zosyn 2.25 gm In Dextrose 5% in 50 50 Water 50 ml @ 100 mls/hr IV Q8H [facility] Rx#:[id number] Oral 350 450 Output: Void Amount 125 Other: Meal Lunch Percent of Meal Consumed 100% Feeding Ability Assist with Tray Set Up Stool Size Small Stool Color Brown Stool Consistency Soft # Voids 1 Exam: T max 99 F. VSS No changes STONEY. ESRD, PAD S/P Right BKA. S/p Revascularization of LEFT leg Tolerating PD uneventfully. LEFT lateral leg wounds are stable / improving Full thickness dry black adherent eschar is loosening On daily chemical debriding treatment with Santyl Wound c/s 3 bacteria. Antibiotics deescalated. Consideration for PO antibiotics ? Zyvox A/P Narrative A/P Narrative: Assessment: Satisfactory progress from wound care point of view. NEEDS to continue with DAILY dressing changes SANTYL ( Collagenase ) treatment at this time. Monitor progress. Will likely need further excision debridement AND possibly Skin grafting later. Plan: If d/c to Rehab or SNF f/u at wound clinic in 1 week. Time Spent With Patient Time: Total time spent is greater than 50% in coordination of care (as documented) at patient's floor/unit and/or counseling patient: Total time spent with greater than 50% in coordination of care (as documented) at patient's floor/unit and/or counseling patient:: Greater than 35 minutes
[2021-07-06] MEDS: ATORVASTATIN 40 MG TABLET PO SCH (21:06)
[2021-07-06] MEDS: SENNOSIDES 1 TABLET PO SCH (21:07)
[2021-07-07] MEDS: HYDROmorphone 2 MG TABLET PO PRN ×2 (01:01→12:16)
[2021-07-07] MEDS: PIPERACILLIN SODIUM/TAZOBACTAM 2.25 GM in DEXTROSE 5% IN WATER 50 ML IV SCH (05:37)
[2021-07-07] MEDS: 0.9 % SODIUM CHLORIDE 10 ML SYRINGE IV SCH ×2 (05:38→15:10)
--- NOTE | 2021-07-07 07:25 | Internal Med Progress Note ---
SUBJECTIVE Subjective Patient information: Note initiated : 07/07/21 at 7:22 am Service Date, if different from initiated Date: [] Patient: Bart Pagan 61 y/o M admitted on 07/01/21 for Left Lower Extremity Infection. Chief Complaint: [] Principal diagnosis: ESRD, PAD ( REVASCUALRZAIOTN ), DM Debridement Left lateral leg wounds. Interval history: Principal diagnosis: ESRD, PAD ( REVASCUALRZAIOTN ), DM Debridement Left lateral leg wounds. Interval history: History of present illness: Mr. Pagan is a 61 year old M history of end-stage renal disease on peritoneal dialysis, type 2 diabetes mellitus, essential hypertension, mixed dyslipidemia, hypothyroidism, obstructive sleep apnea on CPAP, right sided BKA about 3 years ago, peripheral arterial disease status post left leg stents placement 1 week ago, presenting with 3 weeks history of left leg rash, swelling, warmth, and pustular discharge. He was seen in Dr. Cameron office 2 weeks ago. Patient is currently complaining of shaking chills but denies any fever or diaphoresis. He denies any GI upset such as nausea vomiting. He denies any general body weakness. He denies any pain of his left leg. Vital signs at ED presentations significant for mild tachycardia heart rate in the 100s, with rest of the vital signs within normal limits. Labs significant for lack of leukocytosis with WBC 8.7. Hemoglobin and hematocrit 2.65 and 8.2, respectively. It is unclear where the sample was actually accurate or what was it hemolyzed. History significant for serum creatinine level 10.6. Serum lactic acid 1.0. 07/02: Afebrile overnight. Wound and blood cultures no growth to date. c/o moderate aching and tingling of his left lower leg. Denies nausea or vomiting. Denies fever, chills, or sweating. 07/03: s/p bedside debridement and skin biopsy by Dr. Cameron on 07/02. Afebrile overnight. Blood and wound cultures no growth to date. Denies any fever chills or sweating. Denies left leg pain. Denies nausea or vomiting. 07/04: Afebrile. Wound culture growing gram negative bacillus. Blood culture no growth to date. Denies any left lower leg pain. Denies fever or chills or sweating. Denies nausea or vomiting. Good appetite. Denies general body weakness. 07/05: Afebrile. Wound culture growing gram negative bacillus. Blood culture no growth to date. Denies any left lower leg pain. Denies fever or chills or sweating. Denies nausea or vomiting. Good appetite. Denies general body weakness. 07/06 No overnight or new complaints. Wound cultures growing [address] Cameron for wound care. 07/07 No changes overnight. Still awaiting final sensitivities on the third bacteria. Dr. Shirley continue wound care. Patient will go to SNF. Review of Systems: denies headache/fever/chills/nausea/vomiting/chest or abdominal pain/cough/dyspnea/diarrhea. Otherwise see above. Constitutional Vitals: Vital Signs Temp Pulse Resp BP Pulse Ox 97.6 F 68 12 117/47 95 07/07/21 04:16 07/07/21 04:16 07/07/21 04:16 07/07/21 04:16 07/07/21 04:16 Period Temp Pulse Resp BP Sys/Mancini Pulse Ox Last 24 Hr 97.6 F-99.2 F 67-90 12-20 104-142/47-60 92-97 Intake and Output 07/06/21 07/07/21 07/07/21 21:59 05:59 13:59 Intake Total 840 450 50 Output Total 150 Balance 690 450 50 Weight 115.394 kg Intake & Output: Intake & Output 07/06/21 07/07/21 07/07/21 21:59 05:59 13:59 Intake Total 840 450 50 Output Total 150 Balance 690 450 50 Weight 115.394 kg Intake: IV 50 50 50 Zosyn 2.25 gm In Dextrose 5% in 50 50 50 Water 50 ml @ 100 mls/hr IV Q8H [facility] Rx#:[id number] Oral 790 400 Output: Void Amount 150 Other: Meal Snack Percent of Meal Consumed 75% Feeding Ability Independent Urine Appearance Clear Urine Color Dark Yellow Stool Size Small Small Stool Color Brown Stool Consistency Soft Formed # Voids 1 Exam: general: Alert, Awake, No acute Distress, obese Eyes/N/T: EOMI, Head/Neck: neck supple, CV: RRR, No murmurs, Pulm: Clear b/l, no wheezing/rhonchi/rales Abd: soft, nontender, +BS x4 Ext: no clubbing/cyanosis, Right BKA. left leg dressings intact Neuro: Alert, no focal deficits, moves all extremities, Skin: warm/dry OBJ DATA Labs CBC & Chem 7: 07/06/21 05:12 07/06/21 05:12 Labs: Abnormal Lab Results 07/06/21 07/06/21 07/05/21 05:12 05:12 06:53 RBC 2.80 L Hgb 8.3 L Hct 27.5 L MCV MCHC 30.2 L MPV 10.7 H Neut % (Auto) 81.2 H Lymph % (Auto) 6.1 L Lymph # (Auto) 0.56 L Sodium 129 L Chloride 91 L Carbon Dioxide 19 L Anion Gap 19.0 H BUN 46 H Creatinine 10.1 H* Glucose 125 H Calcium 7.0 L Phosphorus 6.9 H* Lactate Dehydrogenase 262 H Total Protein Albumin 2.4 L Albumin/Globulin Ratio 0.7 L Prealbumin Procalcitonin TSH Vancomycin Trough 20.9 H* 07/05/21 07/05/21 07/04/21 05:13 05:00 07:56 RBC 2.57 L Hgb 7.7 L Hct 26.1 L MCV 101.6 H MCHC 29.5 L MPV 10.7 H Neut % (Auto) 79.3 H Lymph % (Auto) 7.6 L Lymph # (Auto) 0.66 L Sodium 129 L Chloride 92 L Carbon Dioxide 18 L Anion Gap 19.0 H BUN 44 H Creatinine 10.5 H* Glucose 150 H Calcium 6.6 L Phosphorus Lactate Dehydrogenase Total Protein 5.8 L Albumin 2.3 L Albumin/Globulin Ratio 0.7 L Prealbumin Procalcitonin TSH Vancomycin Trough 24.5 H* 07/04/21 07/04/21 07/04/21 05:20 05:20 05:20 RBC Hgb Hct MCV MCHC MPV Neut % (Auto) Lymph % (Auto) Lymph # (Auto) Sodium 132 L Chloride 91 L Carbon Dioxide 21 L Anion Gap 20.0 H BUN 43 H Creatinine 11.7 H* Glucose 124 H Calcium 6.7 L Phosphorus Lactate Dehydrogenase Total Protein 5.8 L Albumin 2.3 L Albumin/Globulin Ratio 0.7 L Prealbumin 13.3 L Procalcitonin 0.52 H TSH 5.24 H Vancomycin Trough Meds: Medications Acetaminophen (Acetaminophen 325 Mg Tablet) 650 mg PO Q6HP PRN; Protocol PRN Reason: Per Pain Protocol/Fever > 101 Last Admin: 07/06/21 14:07 Dose: 650 mg Documented by: Albuterol/Ipratropium (Ipratropium/Albuterol 3 Ml Ampul.Neb) 3 ml NEB Q4HRT PRN PRN Reason: Wheezing Allopurinol (Allopurinol 100 Mg Tablet) 100 mg PO QDAY [facility] Last Admin: 07/06/21 09:03 Dose: 100 mg Documented by: Apixaban (Apixaban 5 Mg Tablet) 2.5 mg PO BID [facility] Last Admin: 07/06/21 21:06 Dose: 2.5 mg Documented by: Atorvastatin Calcium (Atorvastatin 40 Mg Tablet) 40 mg PO HS [facility] Last Admin: 07/06/21 21:06 Dose: 40 mg Documented by: Calcium Acetate (Calcium Acetate 667 Mg Capsule) 667 mg PO TIDCC [facility] Last Admin: 07/06/21 16:47 Dose: 667 mg Documented by: Cinacalcet (Cinacalcet 30 Mg Tablet) 30 mg PO QDAY [facility] Last Admin: 07/06/21 09:04 Dose: 30 mg Documented by: Collagenase (Collagenase Top Oint Tube 30gm) 1 dose TOPICAL DAILY [facility] Last Admin: 07/06/21 13:26 Dose: 1 dose Documented by: Dextrose (Dextrose 50% 50 Ml Vial) 0 ml IV UD PRN PRN Reason: Hypoglycemia Diagnostic Test (Pha) (Accu-Chek 1 Each Strip) 1 each FS ACHS [facility] Last Admin: 07/06/21 21:08 Dose: 1 each Documented by: Diphenoxylate HCl/Atropine (Diphenoxylate Hcl/Atropine 1 Tablet) 1 tab PO TID PRN PRN Reason: diarrhea Last Admin: 07/04/21 17:00 Dose: 1 tab Documented by: Docusate Sodium (Docusate Sodium 100 Mg Capsule) 100 mg PO BID [facility] Last Admin: 07/06/21 21:07 Dose: 100 mg Documented by: Gabapentin (Gabapentin 300 Mg Capsule) 300 mg PO QDAY [facility] Last Admin: 07/06/21 09:02 Dose: 300 mg Documented by: Glucose (Dextrose 31 Gm Oral.Susp) 15 gm PO PRN PRN PRN Reason: Hypoglycemia Hydralazine HCl (Hydralazine 25 Mg Tablet) 50 mg PO TID [facility] Last Admin: 07/06/21 21:06 Dose: 50 mg Documented by: Hydromorphone HCl (Hydromorphone 2 Mg Tablet) 2 mg PO TIDP PRN; Protocol PRN Reason: pain Last Admin: 07/07/21 01:01 Dose: 2 mg Documented by: Piperacillin Sod/Tazobactam (Sod 2.25 gm/ Dextrose) 50 mls @ 100 mls/hr IV Q8H [facility]; Protocol Last Infusion: 07/07/21 06:17 Dose: Infused Documented by: Insulin Glargine (Insulin Glargine, Human 1 Unit/0.01 Ml) 60 unit SQ QDAY [facility] Last Admin: 07/06/21 09:06 Dose: 60 units Documented by: Insulin Human Lispro (Insulin Lispro 1 Unit/0.01 Ml Unit) 0 unit SQ ACHS [facility]; Protocol Last Admin: 07/06/21 21:28 Dose: Not Given Documented by: Levothyroxine Sodium (Levothyroxine Sodium 112 Mcg Tablet) 224 mcg PO QDAY [facility] Last Admin: 07/06/21 09:03 Dose: 224 mcg Documented by: Loperamide HCl (Loperamide 2 Mg Capsule) 4 mg PO Q6H PRN PRN Reason: Loose Stool Last Admin: 07/04/21 15:23 Dose: 4 mg Documented by: Losartan Potassium (Losartan 50 Mg Tablet) 100 mg PO DAILY [facility] Last Admin: 07/06/21 09:00 Dose: 100 mg Documented by: Methocarbamol (Methocarbamol 500 Mg Tablet) 500 mg PO TID [facility] Last Admin: 07/06/21 21:06 Dose: 500 mg Documented by: Ondansetron HCl (Ondansetron 4 Mg/2 Ml Vial) 4 mg IV Q6HP PRN PRN Reason: Nausea And Vomiting Gentamicin 0.1 % (Ointment) 1 dose TOPICAL TID [facility] Last Admin: 07/06/21 21:08 Dose: Not Given Documented by: Sucroferric Oxyhydroxide [ Velphoro] 500 Mg Tablet 2 dose PO TIDCC [facility] Last Admin: 07/06/21 17:16 Dose: Not Given Documented by: Senna (Sennosides 1 Tablet) 2 tab PO HS [facility] Last Admin: 07/06/21 21:07 Dose: 2 tab Documented by: Sevelamer Carbonate (Sevelamer 800 Mg Tablet) 2,400 mg PO TIDCC [facility] Last Admin: 07/06/21 16:47 Dose: 2,400 mg Documented by: Sodium Bicarbonate (Sodium Bicarbonate 650 Mg Tablet) 1,300 mg PO BID [facility] Last Admin: 07/06/21 21:06 Dose: 1,300 mg Documented by: Sodium Chloride (0.9 % Sodium Chloride 10 Ml Syringe) 10 ml IV Q8 [facility] Last Admin: 07/07/21 05:38 Dose: 10 ml Documented by: Torsemide (Torsemide 10 Mg Tablet) 40 mg PO DAILY [facility] Last Admin: 07/06/21 09:04 Dose: 40 mg Documented by: Trazodone HCl (Trazodone Hcl 50 Mg Tablet) 25 mg PO QHS PRN PRN Reason: insomnia Zolpidem Tartrate (Zolpidem 5 Mg Tablet) 5 mg PO HSP PRN PRN Reason: Insomnia A/P Narrative A/P Narrative: Assessment and Plans: *Left leg cellulitis: -DDx: calciphylaxis -Dr. Cameron following, performed bedside debridement and skin biopsy (07/02) -WC withProvidencia/Enterococcus/Enterobacter, awaiting final I&S. BC no growth to date -d/c Vancomycin / cont Zosyn *T2DM with diabetic neuropathy: -HgA1c 8.0 -Lantus 60 unit SQ daily, SSI, Gabapentin *ESRD on peritoneal dialysis: -Dr. Almaraz for dialysis needs, recs. appreciated -Would switch to hemodialysis after being discharged from hospital *Hyponatremia/hyperophos: defer to nephrology *Anemia associated with ESRD: *Essential HTN: Continue Losartan and Hydralazine *MAUDE on CPAP: Continue CPAP at night while sleeping *Hypothyroidism: *Obesity BMI 37: *h/o PAD with recent stent placement in right leg: -Continue Eliquis / statin *ppx: Eliquis Code status: Mussel Opener Spent With Patient Time: Total time spent is greater than 50% in coordination of care (as documented) at patient's floor/unit and/or counseling patient: QUALITY Stroke Symptom Onset Unknown: No VTE Deep Vein Thrombosis/Pulmonary Embolism Present on Admission: No
--- NOTE | 2021-07-07 08:25 | Nephrology Progress Note ---
SUBJECTIVE Subjective Patient information: Note initiated : 07/07/21 at 8:24 am Patient: Bart Pagan 61 y/o M admitted on 07/01/21 for Left Lower Extremity Infection. Chief Complaint: Left leg wound Principal diagnosis: ESRD, PAD ( REVASCUALRZAIOTN ), DM Debridement Left lateral leg wounds. Pertinent ROS: Left leg wound Constitutional Vitals: Vital Signs Temp Pulse Resp BP Pulse Ox 97.6 F 68 12 117/47 95 07/07/21 04:16 07/07/21 04:16 07/07/21 04:16 07/07/21 04:16 07/07/21 04:16 Period Temp Pulse Resp BP Sys/Mancini Pulse Ox Last 24 Hr 97.6 F-99.1 F 68-90 12-20 116-142/47-60 92-97 Intake and Output 07/06/21 07/07/21 07/07/21 21:59 05:59 13:59 Intake Total 840 450 50 Output Total 150 Balance 690 450 50 Weight 254 lb 6.4 oz Intake & Output: Intake & Output 07/06/21 07/07/21 07/07/21 21:59 05:59 13:59 Intake Total 840 450 50 Output Total 150 Balance 690 450 50 Weight 254 lb 6.4 oz Intake: IV 50 50 50 Zosyn 2.25 gm In Dextrose 5% in 50 50 50 Water 50 ml @ 100 mls/hr IV Q8H [facility] Rx#:[id number] Oral 790 400 Output: Void Amount 150 Other: Meal Snack Percent of Meal Consumed 75% Feeding Ability Independent Urine Appearance Clear Urine Color Dark Yellow Stool Size Small Small Stool Color Brown Stool Consistency Soft Formed # Voids 1 General appearance: cooperative and no acute distress Head Head exam: Present normal inspection Eye Eye exam: Present normal appearance ENT ENT exam: Present mucous membranes moist Respiratory Respiratory exam: Absent respiratory distress Cardiovascular Cardiovascular exam: Present normal rate and rhythm GI/Abdominal GI/Abdominal exam: Present soft; Absent tenderness Extremities Exam Extremities exam: Absent joint swelling or pedal edema Neurological Exam Neurological exam: Present alert and oriented X3 Psychiatric Psychiatric exam: Present normal affect and normal mood Skin Skin exam: Present warm; Absent rash A/P Assessment and plan (1) ESRD on peritoneal dialysis: Assessment and plan: Bart Pagan is a 61-year-old male with end stage renal disease on peritoneal dialysis, chronic anemia due to ESRD, hypertension, diabetes mellitus type 2, chronic atrial fibrillation on Apixaban, peripheral vascular disease (heavy calcifications of the femoral artery and the runoff vessels), left lower extremity infected diabetic foot ulcer, admitted on 07/01/21. He was sent from wound care for worsening of left lower extremity infected diabetic foot ulcer which requires IV antibiotics. Nephrology consultation was requested for management of peritoneal dialysis. End stage renal disease on peritoneal dialysis. Chronic anemia due to ESRD, [facility] with Odilon and Ingrid. Secondary hyperparathyroidism. Peripheral vascular disease with heavy calcifications of the femoral artery and the runoff vessels. Left lower extremity infected diabetic foot ulcer which requires IV antibiotics. Metabolic acidosis, persistent. Sodium Bicarbonate 1,300 mg twice daily started on 07/05/21. I discussed the patient with his primary prep cook Dr. Jacinto. He suspected calciphylaxis of the wound and requests a wound biopsy for confirmation. IV Sodium thiosulfate will then be considered at the dialysis unit with switch back to hemodialysis. i also discussed the patient with Dr. Cameron regarding further management. Progress: CCPD; treatment time 12 hours, total volume 10,500 ml, 2.5%, fill volume 2,400 ml, four exchanges, last fill 300 ml. Complicated skin and skin structure infection, left lateral leg and patches of dry gangrene necrosis of left lateral leg s/p bedside debridement and tissue biopsy for calciphylaxis andtissue specimen for culture and sensitivity on 07/03/21. Recommendations/Plan: Continue CCPD as inpatient. He will need to switch to intermittent hemodialysis for SNF discharge. Switching to hemodialysis also recommended for better clearance. Antibiotic dosage for peritoneal dialysis. PRBC transfusion for hemoglobin <7.0 unless symptomatic anemia. 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
[2021-07-07] MEDS: INSULIN LISPRO 1 UNIT/0.01 ML UNIT SQ SCH ×2 (09:13→15:09)
[2021-07-07] MEDS: hydrALAZINE 25 MG TABLET PO SCH ×2 (09:13→15:10)
[2021-07-07] MEDS: TORSEMIDE 10 MG TABLET PO SCH (09:13)
[2021-07-07] MEDS: CALCIUM ACETATE 667 MG CAPSULE PO SCH ×2 (09:14→12:26)
[2021-07-07] MEDS: SODIUM BICARBONATE 650 MG TABLET PO SCH (09:14)
[2021-07-07] MEDS: GABAPENTIN 300 MG CAPSULE PO SCH (09:14)
[2021-07-07] MEDS: LEVOTHYROXINE SODIUM 112 MCG TABLET PO SCH (09:14)
[2021-07-07] MEDS: DIPHENOXYLATE HCL/ATROPINE 1 TABLET PO PRN (09:14)
[2021-07-07] MEDS: APIXABAN 5 MG TABLET PO SCH (09:14)
[2021-07-07] MEDS: CINACALCET 30 MG TABLET PO SCH (09:14)
[2021-07-07] MEDS: ALLOPURINOL 100 MG TABLET PO SCH (09:14)
[2021-07-07] MEDS: METHOCARBAMOL 500 MG TABLET PO SCH (09:14)
[2021-07-07] MEDS: LOSARTAN 50 MG TABLET PO SCH (09:14)
[2021-07-07] MEDS: DOCUSATE SODIUM 100 MG CAPSULE PO SCH (09:15)
[2021-07-07] MEDS: SEVELAMER 800 MG TABLET PO SCH ×2 (09:15→12:16)
[2021-07-07] MEDS: GENTAMICIN 0.1% TOPICAL SCH (09:15)
[2021-07-07] MEDS: COLLAGENASE TOP OINT TUBE 30GM TOPICAL SCH (09:22)
[2021-07-07] MEDS ORDERED: LEVOFLOXACIN 750 MG TABLET PO ONE (11:00)
[2021-07-07] MEDS: INSULIN GLARGINE, HUMAN 1 UNIT/0.01 ML SQ SCH (12:03)
[2021-07-07] MEDS ORDERED: AMOXICILLIN 250 MG CAPSULE PO SCH (21:00)
[2021-07-08] MEDS ORDERED: [UNRECOGNIZED DRUG - OTHER] SUB-Q SCH (09:00)
[2021-07-08] MEDS ORDERED: LEVOFLOXACIN 250 MG TABLET PO SCH (09:00)
== END 2021-07-07 15:05 | disposition home or self-care (01) | DRG 602 ==
LOC: ED 09:46 → MEDSUR 15:24
PROVIDERS: ADMIT Internal Medicine; ATTEND Internal Medicine